=== PATIENT | female | born 1945 | race Caucasian/White ===

== ENCOUNTER 2016-10-26 14:57 | Emergency (ER) | payer OTHER ==
[2016-10-26 15:41] VITALS: BMI 31.2
--- NOTE | 2016-10-26 16:04 | PDOC ---
History of Present Illness - General Chief Complaint: Shortness of Breath Stated Complaint: SOB Time Seen by Provider: 10/26/16 15:31 History Source: Patient Exam Limitations: No Limitations - History of Present Illness Initial Comments: 71 y/o F w/PMH of COPD (oxygen dependent), emphysema presents to the ER from [facility] via EMS for shortness of breath. Pt states she went to bathroom this morning without using oxygen and when she was walking out of bathroom she began having shortness of breath not alleviated with albuterol inhaler. She also states she has had some cough with some green sputum. She also states she has not had her daily prednisone since Tuesday. She denies CP, light-headedness, dizziness, MASSEY out of the ordinary, abd pain, fevers , chills, nausea, vomiting. She states she had pneumonia 6-8 weeks ago and was treated with oral antibiotics. She states this SOB this morning feels similar to the SOB she gets with COPD exacerbation. She is a former smoker, quit 3 years ago. She denies recent travel history. Past History - Past Medical History Allergies/Adverse Reactions: Allergies Allergy/AdvReac Type Severity Reaction Status Date / Time codeine Allergy Verified 10/26/16 15:29 latex Allergy Verified 10/26/16 15:29 Sulfa (Sulfonamide Allergy Verified 10/26/16 15:29 Antibiotics) Home Medications: Ambulatory Orders Acetaminophen [Mapap] 650 mg PO PRN 10/26/16 Albuterol 0.083% Nebulizer Opal [Ventolin 0.083% Nebulizer Soln -] 1 neb NEB Q6H PRN 10/26/16 Albuterol Sulfate Inhaler - [Ventolin Hfa Inhaler -] 1 puff IH TID 10/26/16 Aspirin [ASA -] 81 mg PO DAILY 10/26/16 Citalopram Hydrobromide [Citalopram HBr] 20 mg PO DAILY 10/26/16 Clonazepam [Klonopin -] 0.5 mg PO AM 10/26/16 Clonazepam [Klonopin] 1 mg PO HS 10/26/16 Denosumab [Prolia] 60 mg SQ ASDIR 10/26/16 Docusate Sodium [Colace -] 300 mg PO HS 10/26/16 Metoprolol Tartrate [Lopressor] 100 mg PO BID 10/26/16 Omeprazole 40 mg PO DAILY 10/26/16 Prednisone 10 mg PO DAILY #10 tablet 10/26/16 Prednisone [Deltasone -] 5 mg PO DAILY 10/26/16 Umeclidinium Brm/Vilanterol Tr [Anoro Ellipta 62.5-25 Mcg INH] 1 each IH DAILY 10/26/16 Verapamil HCl 120 mg PO DAILY 10/26/16 Anemia: Yes Cancer: Yes (uterine) COPD: Yes GI Disorders: Yes (gerd) HTN: Yes Psychiatric Problems: Yes (anxiety) Other medical history: osteoarthritis, osteoperosis,sleep disorders,facial nerve disorder, - Psycho/Social/Smoking Cessation Hx Suicidal Ideation: No Smoking History: Former smoker Have you smoked in the past 12 months: No Information on smoking cessation initiated: No Hx Alcohol Use: Yes (occasionally) Drug/Substance Use Hx: No Substance Use Type: Alcohol Review of Systems - Review of Systems Able to Perform ROS?: Yes Comments:: CONSTITUTIONAL: No fever, no chills, no fatigue EYES: No visual changes ENT: No ear pain, no sore throat CARDIOVASCULAR: No chest pain, no palpitations RESPIRATORY: +cough, SOB GI: No abdominal pain, no nausea, no vomiting GENITOURINARY: No dysuria MUSKULOSKELETAL: No backpain, no joint pain, no myalgias SKIN: No rash NEURO: No new headache *Physical Exam - Vital Signs Last Vital Signs Temp Pulse Resp BP Pulse Ox 97.5 F L 103 H 18 105/84 98 10/26/16 15:00 10/26/16 15:00 10/26/16 15:00 10/26/16 15:00 10/26/16 15:00 - Physical Exam Comments: CONSTITUTIONAL: Well-appearing; well-nourished; in no apparent distress HEAD: Normocephalic; atraumatic EYES: EOM intact ENMT: External appears normal NECK: Supple; nontender CARD: Tachycardic, Normal S1, S2; no rubs, or gallops RESP: Diminished breath sounds; no wheezes, rhonchi, or rales ABD: Soft, non-distended; non-tender; no palpable organomegaly, no palpable hernias EXT: Normal ROM in all four extremities; non-tender to palpation; distal pulses intact SKIN: Warm, dry, no rash NEURO: No focal neurological deficiencies. Heart Score/ECG Review - ECG Intrepretation Comment:: EKG: NSR 95bpm T wave abnormality, consider anterior ischemia QTc 449 ms ED Treatment Course - LABORATORY CBC & Chemistry Diagram: 10/26/16 16:09 10/26/16 16:09 Medical Decision Making - Medical Decision Making 10/26/16 16:00 COPD exacerbation likely at this time. Ordered CBCD, CMP, cardiac profile, EKG, CXR Pt states she already feels better currently despite no treatments yet. 10/26/16 16:44 Will give patient 40 mg prednisone. [facility] one dose ordered. Will monitor patient for now. Will also watch her trops at this time. If trops negative and pt remains stable will discharge with prednisone taper (40-30-20- 10 qd taper) 10/26/16 16:57 CXR: COPD, possible mild congestion. 10/26/16 17:36 Trop <0.02, no white count, electrolytes wnl Will get second set of trops. If negative will d/c to home. 10/26/16 17:42 Pt takes clonazepam 0.5 mg qd and 1mg qhs as indicated by medlist sent in by facility. Pt has not taken any of her medications this morning because she was unable to reach the med room at living facility due to SOB. 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 Will give clonazepam 0.5 mg once at this time. Will hold verapamil as her BP is normotensive. If Hypertensive can give metoprolol tartrate 100 mg (scheduled to be taken bid) as her HR is elevated. *DC/Admit/Observation/Transfer Diagnosis at time of Disposition: COPD exacerbation - Discharge Dispostion Disposition: [facility] - Referrals Referrals: Mely Moore MD [Primary Care Provider] - Spike Cummings MD [Staff Physician] - - Patient Instructions Printed Discharge Instructions: DI for Chronic Obstructive Pulmonary Disease, DI for Oxygen Therapy -- Adult Additional Instructions: You must follow up with your primary care doctor after this emergency room visit. You are to take prednisone on a taper for the next 4 days (do not take your daily 10 mg at this time) You are to take 40 mg prednisone tomorrow; 30 mg the day after, 20 mg the following day, and 10 mg on the 4th day. After which you may resume your regular prednisone dosing. You may also see a business development for your COPD and emphysema. You may see Dr. Cummings if you do not already have a business development. If your symptoms worsen, come back to the emergency room.
--- NOTE | 2016-10-26 16:51 | PDOC ---
Attending Attestation - Resident Resident Name: Rex Cuevas - ED Attending Attestation I have performed the following: I have examined & evaluated the patient, The case was reviewed & discussed with the resident, I agree w/resident's findings & plan, Exceptions are as noted - HPI HPI: 10/26/16 16:47 Patient 71-year-old female with history of COPD, O2 dependent, brought in by EMS for a period of shortness of breath that occurred when the patient was exerting herself and had to take off the supplemental O2 we'll go to the bathroom. Patient also reports that over a period of several days, she has developed worsening dyspnea on exertion which is often treated by additional doses of prednisone. Patient denies chest pain at rest, complains of mild discomfort which is exacerbated post tussively. - Physicial Exam PE: 10/26/16 16:49 Patient is awake and alert, speaking full sentences, with oxygen saturation of 97% on 3 L via nasal cannula. Breath sounds are distant bilaterally without audible wheezing or accessory muscle use. Serial abdominal exams reveal no tenderness; there is no lower extremity edema. - Medical Decision Making 10/26/16 16:50 Patient 71-year-old female with history of COPD, O2 dependent who presents with an episode of dyspnea that occurred while she took off her supplemental O2. On initial evaluation, patient is awake and alert, speaking full sentences, in no respiratory distress. We will administer additional dose of prednisone by mouth for suspected mild acute COPD exacerbation. EKG shows inverted T waves in V2 and V3 without a previous one for comparison. Will obtain serial cardiac enzymes to rule out DE. If negative, will discharge with a prednisone taper with pulmonology follow-up as needed.
[2016-10-26 16:57] LABS: BASOPHIL 0.6 % (0-2.0); EOSINOPHIL 0.4 % (0-4.5); MCH 27.1 pg (25.7-33.7); MCHC 32.3 g/dl (32.0-36.0); MEAN CELL VOLUME 83.7 fl (80-96); MEAN PLT VOLUME 7.4 fl (7.5-11.1); NEUTROPHILS 87.1 % (42.8-82.8); PLATELET COUNT 219 K/MM3 (134-434); RDW 14.3 % (11.6-15.6)
[2016-10-26 17:20] LABS: ALBUMIN 3.4 g/dl (3.4-5.0); ANION GAP 9 (8-16); BILIRUBIN,TOTAL 0.2 mg/dL (0.2-1.0); CALCIUM 8.6 mg/dL (8.5-10.1); CO2 34 mmol/L (21-32); CREATININE 0.8 mg/dL (0.55-1.02); GLUCOSE,RANDOM 135 mg/dL (74-106); SGOT/AST 14 U/L (15-37); SGPT/ALT 11 U/L (12-78); TOT PROT 6.1 g/dl (6.4-8.2)
[2016-10-26 17:22] LABS: ALK PHOS 130 U/L (45-117); TROPONIN I < 0.02 ng/ml (0.00-0.05)
[2016-10-26] MEDS ORDERED: predniSONE 20 MG TABLET (UD) PO ONE (17:25)
[2016-10-26] MEDS ORDERED: predniSONE 20 MG TABLET (UD) ONE (17:35)
[2016-10-26] MEDS ORDERED: ALBUTEROL SO4 2.5/IPRATROPIUM 0.5 INH SOL 3 ML VIAL.NEB. NEB ONE ×2 (17:41→18:18)
[2016-10-26] MEDS ORDERED: clonazePAM 0.5 MG TABLET PO ONE (17:48)
[2016-10-26] MEDS ORDERED: clonazePAM 0.5 MG TABLET ONE (18:18)
[2016-10-26 22:47] VITALS: BP 119/83; PULSE 105; TEMP 97.9
[2016-10-26 23:04] LABS: TROPONIN I < 0.02 ng/ml (0.00-0.05)
--- NOTE | 2016-10-26 23:40 | PDOC ---
*Physical Exam - Vital Signs Last Vital Signs Temp Pulse Resp BP Pulse Ox 97.9 F 105 H 19 119/83 96 10/26/16 22:46 10/26/16 22:46 10/26/16 22:46 10/26/16 22:46 10/26/16 22:46 ED Treatment Course - LABORATORY CBC & Chemistry Diagram: 10/26/16 16:09 10/26/16 16:09 - ADDITIONAL ORDERS Additional order review: Laboratory Results 10/26/16 10/26/16 22:02 16:09 Sodium 141 Potassium 4.8 Chloride 98 Carbon Dioxide 34 H Anion Gap 9 BUN 21 H Creatinine 0.8 Creat Clearance w eGFR > 60 Random Glucose 135 H Calcium 8.6 Total Bilirubin 0.2 AST 14 L ALT 11 L Alkaline Phosphatase 130 H Creatine Kinase 42 45 Troponin I < 0.02 < 0.02 Total Protein 6.1 L Albumin 3.4 10/26/16 16:09 RBC 3.95 MCV 83.7 MCHC 32.3 RDW 14.3 MPV 7.4 L Neutrophils % 87.1 H Lymphocytes % 9.1 Monocytes % 2.8 L Eosinophils % 0.4 Basophils % 0.6 - Medications Given in the ED: ED Medications Discontinued Medications Generic Name Dose Route Start Last Admin Trade Name Freq PRN Reason Stop Dose Admin Albuterol/Ipratropium 1 amp 10/26/16 17:41 10/26/16 18:21 Duoneb - NEB 10/26/16 17:42 1 amp ONCE ONE Administration Clonazepam 0.5 mg 10/26/16 17:48 10/26/16 18:21 Klonopin - PO 10/26/16 17:49 0.5 mg ONCE ONE Administration Prednisone 40 mg 10/26/16 17:25 10/26/16 17:27 Deltasone - PO 10/26/16 17:26 40 mg ONCE ONE Administration *DC/Admit/Observation/Transfer Diagnosis at time of Disposition: COPD exacerbation - Discharge Dispostion Disposition: [facility] Condition at time of disposition: Stable - Prescriptions Prescriptions: Prednisone 10 mg PO DAILY #10 tablet - Referrals Referrals: Spike Cummings MD [Staff Physician] - Mely Moore MD [Primary Care Provider] - - Patient Instructions Printed Discharge Instructions: DI for Chronic Obstructive Pulmonary Disease, DI for Oxygen Therapy -- Adult Additional Instructions: You must follow up with your primary care doctor after this emergency room visit. You are to take prednisone on a taper for the next 4 days (do not take your daily 10 mg at this time) You are to take 40 mg prednisone tomorrow; 30 mg the day after, 20 mg the following day, and 10 mg on the 4th day. After which you may resume your regular prednisone dosing. You may also see a log driver for your COPD and emphysema. You may see Dr. Cummings if you do not already have a log driver. If your symptoms worsen, come back to the emergency room. - Post Discharge Activity
--- NOTE | 2016-10-27 12:45 | EKG ---
Test Reason : Blood Pressure : / mmHG Vent. Rate : 095 BPM Atrial Rate : 095 BPM P-R Int : 132 ms QRS Dur : 084 ms QT Int : 358 ms P-R-T Axes : 066 036 065 degrees QTc Int : 449 ms NORMAL SINUS RHYTHM T WAVE ABNORMALITY, CONSIDER ANTERIOR ISCHEMIA ABNORMAL ECG NO PREVIOUS ECGS AVAILABLE Confirmed by MARIA ELENA THOMAS MD ([id number]) on 10/27/2016 12:45:13 PM Referred By: Confirmed By:MARIA ELENA THOMAS MD
== END 2016-10-27 00:55 ==
LOC: JER 14:57
PROC: 3E0F7GC Introduction of Other Therapeutic Substance into Respiratory Tract, Via Natural or Artificial Opening (ICD-10-PCS; principal; 2016-10-26)
DX: J44.1 Chronic obstructive pulmonary disease with (acute) exacerbation (principal); Z99.81 Dependence on supplemental oxygen; I10 Essential (primary) hypertension; D64.9 Anemia, unspecified; F41.9 Anxiety disorder, unspecified; M19.90 Unspecified osteoarthritis, unspecified site; G47.8 Other sleep disorders; G51.8 Other disorders of facial nerve
CPT/HCPCS: 36415; 71010-TC; 80053; 82550; 84484; 85025; 93005; 93010; 99283-25

== ENCOUNTER 2017-10-18 14:13 | Emergency (ER) | payer OTHER ==
[2017-10-18 14:40] VITALS: BP 89/50; PULSE 65; TEMP 98.8; BMI 33.1
--- NOTE | 2017-10-18 15:04 | PDOC ---
History of Present Illness - General Chief Complaint: Injury Stated Complaint: LACERATION Time Seen by Provider: 10/18/17 14:33 History Source: Patient Exam Limitations: No Limitations - History of Present Illness Initial Comments: 10/18/17 15:03 The patient is a 72F with a PMH of who presents to the ER with complaints of a laceration on her L elbow. The patient states that yesterday morning at 0300 she got up to go to the bathroom, rolled on her ankle, and hit her elbow on a bookshelf. She denies any CP, SOB, numbness, tingling, or weakness before, during, or after this event. She denies LOC and any head trauma. Her only complaint is the laceration on her L elbow. Past History - Past Medical History Allergies/Adverse Reactions: Allergies Allergy/AdvReac Type Severity Reaction Status Date / Time codeine Allergy Verified 10/18/17 14:56 latex Allergy Verified 10/18/17 14:56 Sulfa (Sulfonamide Allergy Verified 10/18/17 14:56 Antibiotics) Home Medications: Ambulatory Orders Acetaminophen [Mapap] 650 mg PO PRN 10/26/16 Albuterol 0.083% Nebulizer Opal [Ventolin 0.083% Nebulizer Soln -] 1 neb NEB Q6H PRN 10/26/16 Aspirin [ASA -] 81 mg PO DAILY 10/26/16 Citalopram Hydrobromide [Citalopram HBr] 20 mg PO DAILY 10/26/16 Clonazepam [Klonopin] 1 mg PO HS 10/26/16 Denosumab [Prolia] 60 mg SQ ASDIR 10/26/16 Docusate Sodium [Colace -] 300 mg PO HS 10/26/16 Metoprolol Tartrate [Lopressor] 100 mg PO BID 10/26/16 Omeprazole 40 mg PO DAILY 10/26/16 Umeclidinium Brm/Vilanterol Tr [Anoro Ellipta 62.5-25 Mcg INH] 1 each IH DAILY 10/26/16 Verapamil HCl 120 mg PO DAILY 10/26/16 clonazePAM [Klonopin -] 0.5 mg PO AM 10/26/16 predniSONE [Deltasone -] 7.5 mg PO DAILY 10/26/16 Anemia: Yes Cancer: Yes (uterine) COPD: Yes GI Disorders: Yes (gerd) HTN: Yes Psychiatric Problems: Yes (anxiety) - Suicide/Smoking/Psychosocial Hx Smoking History: Former smoker Have you smoked in the past 12 months: No Information on smoking cessation initiated: No Hx Alcohol Use: No Drug/Substance Use Hx: No Substance Use Type: Alcohol Review of Systems - Review of Systems Able to Perform ROS?: Yes Is the patient limited Bahamian proficient: No Constitutional: No: Chills, Fever HEENTM: No: Eye Pain, Blurred Vision Respiratory: No: Shortness of Breath Cardiac (ROS): No: Chest Pain ABD/GI: No: Nausea, Vomiting Neurological: No: Headache, Numbness, Tingling, Weakness *Physical Exam - Vital Signs Last Vital Signs Temp Pulse Resp BP Pulse Ox 98.8 F 65 20 89/50 95 10/18/17 14:32 10/18/17 14:32 10/18/17 14:32 10/18/17 14:32 10/18/17 14:32 - Physical Exam General Appearance: Yes: Appropriately Dressed. No: Apparent Distress HEENT: positive: Normal Voice, Hearing Grossly Normal Integumentary: positive: Dry, Warm, Other (2 cm superficial laceration at lateral L elbow) Neurologic: positive: Other (Neurovascularly intact in L arm) Procedures - Laceration/Wound Repair Left Lateral Elbow Wound Length: to 2.5 cm Wound Explored: clean Wound's Depth, Shape: superficial Irrigated w/ Saline: Yes Betadine Prep: No Anesthesia: 1% Lidocaine Amount of Anesthetic (ccs): 1 Wound Debrided: minimal Wound Repaired With: Sutures Suture Size/Type: 4:0 Number of Sutures: 2 Layer Closure: No Sterile Dressing Applied: Yes Splint Applied: No Sling Applied: No Medical Decision Making - Medical Decision Making 10/18/17 17:02 The patient is a 72F who presented with a superficial laceration over her L elbow. It was sutured with 2 4-0 needles. Will apply clean dressing and then d/ c home. *DC/Admit/Observation/Transfer Diagnosis at time of Disposition: Laceration - Discharge Dispostion Disposition: HOME Condition at time of disposition: Stable Decision to Admit order: No - Referrals Referrals: Mely Moore MD [Primary Care Provider] - - Patient Instructions Printed Discharge Instructions: DI for Suture Removal Additional Instructions: Please follow up with your primary care physician in 2-3 days. Your doctor can take out your sutures in 10 days. Please return if you have any fever, chills, redness, or pus drainage from your laceration. Please keep the area clean and dry for 2 days then change out your dressings with triple antibiotic ointment. Please return to the ER if you have any signs or symptoms of chest pain, shortness of breath, uncontrollable fever, chills, nausea, vomiting, numbness, tingling, or weakness in any part of your body, changes in vision, or slurred speech. Please return to the ER if symptoms persist, worsen, or new symptoms arise. - Post Discharge Activity
--- NOTE | 2017-10-18 16:12 | PDOC ---
Attending Attestation - Resident Resident Name: RenettaPhil - ED Attending Attestation I have performed the following: I have examined & evaluated the patient, The case was reviewed & discussed with the resident, I agree w/resident's findings & plan - HPI HPI: 10/18/17 16:07 72-year-old female presents with left elbow injury sustained about 1.5 days ago when she slipped on her right ankle and fell, striking her left elbow on a bookcase, dresser, and floor. There was no head injury or loss of consciousness , she's been fully ambulatory since then without left ankle pain or swelling. Presents today for evaluation of L elbow swelling/bruising/discomfort and laceration. last tetanus 2y ago - Physicial Exam PE: 10/18/17 16:08 Vital signs wnl well appearing seated in wheelchair on baseline O2 atraumatic except for L elbow: subcutaneous bruising across lateral LUE around elbow, slight ttp over olecranon but FROM without joint effusion. NVI. 1.5cm skin avulsion, no active bleeding, no FB, no deep tissue injury - Medical Decision Making 10/18/17 16:10 72-year-old female with isolated left elbow injury after mechanical trip and fall 1.5 days ago. Trauma exam is unremarkable, she is well-appearing and hemodynamically stable. Left elbow superficial laceration with bruising, rule out fracture. Left elbow x-ray Tetanus already up-to-date Laceration repair Discharge accordingly 10/18/17 16:43 xray negative for fracture. lac repair per note home with wound care instructions.
== END 2017-10-18 19:59 | disposition home or self-care (01) ==
LOC: JER 14:13
PROC: 0HQEXZZ Repair Left Lower Arm Skin, External Approach (ICD-10-PCS; principal; 2017-10-18)
DX: S51.012A Laceration without foreign body of left elbow, initial encounter (principal); W01.190A Fall on same level from slipping, tripping and stumbling with subsequent striking against furniture, initial encounter; Y93.01 Activity, walking, marching and hiking; Y92.092 Bedroom in other non-institutional residence as the place of occurrence of the external cause; I10 Essential (primary) hypertension; J44.9 Chronic obstructive pulmonary disease, unspecified; K21.9 Gastro-esophageal reflux disease without esophagitis; Z85.42 Personal history of malignant neoplasm of other parts of uterus; Z87.891 Personal history of nicotine dependence
CPT/HCPCS: 12001; 73070-TC-LT-FY; 99282-25

== ENCOUNTER 2018-01-20 14:26 | Inpatient (IN) | payer OTHER ==
[2018-01-20] MEDS ORDERED: ALBUTEROL SO4 2.5/IPRATROPIUM 0.5 INH SOL 3 ML VIAL.NEB. NEB ONE ×2 (14:59→16:30)
--- NOTE | 2018-01-20 15:21 | PDOC ---
History of Present Illness <Leda Farmer - Last Filed: 01/20/18 15:21> - General History Source: Patient Exam Limitations: No Limitations - History of Present Illness Initial Comments: 01/20/18 15:43 The patient is a 72 year old female with a significant PMH of COPD O2 dependent , right sided facial spasms, and cervical cancer s/p hysterectomy presenting with shortness of breath that began yesterday. Patient states she was walking around in the heat when she suddenly began experiencing shortness of breath. Patient is speaking in 2-3 word sentences here in the ER. Patient reports coughing more than usual and that her cough is productive of a green colored sputum. Patient reports using her inhaler and 7.5 mg of prednisone with no improvement. Patient also uses 2-3L of 02 at home. Patient was unable to fall asleep last night secondary to her shortness of breath. The patient denies chest pain, headache and dizziness. Denies fever, chills, nausea, vomit, diarrhea and constipation. Denies dysuria, frequency, urgency and hematuria. Allergies: NKA Past surgical history: None reported Social history: Former smoker. No reported alcohol or drug use. <Megan Herrera - Last Filed: 01/20/18 16:55> <Norma Rosales - Last Filed: 01/20/18 20:42> - General Chief Complaint: Shortness of Breath Stated Complaint: COPD Time Seen by Provider: 01/20/18 15:21 Past History - Past Medical History Anemia: Yes Cancer: Yes (uterine) COPD: Yes GI Disorders: Yes (gerd) HTN: Yes Psychiatric Problems: Yes (anxiety) - Suicide/Smoking/Psychosocial Hx Smoking History: Former smoker Have you smoked in the past 12 months: No If you are a former smoker, when did you quit?: 4 years ago Information on smoking cessation initiated: No Hx Alcohol Use: No Drug/Substance Use Hx: No Substance Use Type: Alcohol <Leda Farmer - Last Filed: 01/20/18 15:21> <Megan Herrera - Last Filed: 01/20/18 16:55> <Norma Rosales - Last Filed: 01/20/18 20:42> - Past Medical History Allergies/Adverse Reactions: Allergies Allergy/AdvReac Type Severity Reaction Status Date / Time codeine Allergy Verified 10/18/17 14:56 latex Allergy Verified 10/18/17 14:56 Sulfa (Sulfonamide Allergy Verified 10/18/17 14:56 Antibiotics) Home Medications: Ambulatory Orders Acetaminophen [Mapap] 650 mg PO PRN 10/26/16 Albuterol 0.083% Nebulizer Opal [Ventolin 0.083% Nebulizer Soln -] 1 neb NEB Q6H PRN 10/26/16 Aspirin [ASA -] 81 mg PO DAILY 10/26/16 Citalopram Hydrobromide [Citalopram HBr] 20 mg PO DAILY 10/26/16 Clonazepam [Klonopin] 1 mg PO HS 10/26/16 Denosumab [Prolia] 60 mg SQ ASDIR 10/26/16 Docusate Sodium [Colace -] 300 mg PO HS 10/26/16 Metoprolol Tartrate [Lopressor] 100 mg PO BID 10/26/16 Omeprazole 40 mg PO DAILY 10/26/16 Umeclidinium Brm/Vilanterol Tr [Anoro Ellipta 62.5-25 Mcg INH] 1 each IH DAILY 10/26/16 Verapamil HCl 120 mg PO DAILY 10/26/16 clonazePAM [Klonopin -] 0.5 mg PO AM 10/26/16 predniSONE [Deltasone -] 7.5 mg PO DAILY 10/26/16 Albuterol 2.5/Ipratropium 0.5 [Duoneb -] 1 amp NEB Q6H 01/20/18 Albuterol Sulfate [Proair Hfa] 2 puff IH Q4H 01/20/18 Atorvastatin Ca [Lipitor] 40 mg PO HS 01/20/18 Cholecalciferol (Vitamin D3) [Vitamin D3] 1,000 unit PO DAILY 01/20/18 Review of Systems - Review of Systems Able to Perform ROS?: Yes Comments:: 01/20/18 15:47 GENERAL/CONSTITUTIONAL: No fever or chills. No weakness. HEAD, EYES, EARS, NOSE AND THROAT: (+) Right eye discharge. No change in vision. No ear pain or discharge. No sore throat. CARDIOVASCULAR: No chest pain or shortness of breath. RESPIRATORY: (+) Shortness of breath. (+) Productive cough. No hemoptysis. GASTROINTESTINAL: No nausea, vomiting, diarrhea or constipation. GENITOURINARY: No dysuria, frequency, or change in urination. MUSCULOSKELETAL: No joint or muscle swelling or pain. No neck or back pain. SKIN: No rash NEUROLOGIC: No headache, vertigo, loss of consciousness, or change in strength/ sensation. ENDOCRINE: No increased thirst. No abnormal weight change. HEMATOLOGIC/LYMPHATIC: No anemia, easy bleeding, or history of blood clots. ALLERGIC/IMMUNOLOGIC: No hives or skin allergy. <Megan Herrera - Last Filed: 01/20/18 16:55> *Physical Exam - Vital Signs Last Vital Signs Temp Pulse Resp BP Pulse Ox 98.6 F 121 H 26 H 124/90 95 01/20/18 14:30 01/20/18 14:30 01/20/18 14:30 01/20/18 14:30 01/20/18 14:30 <Leda Farmer - Last Filed: 01/20/18 15:21> - Vital Signs Last Vital Signs Temp Pulse Resp BP Pulse Ox 98.6 F 121 H 26 H 124/90 95 01/20/18 14:30 01/20/18 14:30 01/20/18 14:30 01/20/18 14:30 01/20/18 14:30 - Physical Exam Comments: 01/20/18 15:44 GENERAL: Awake, alert, and fully oriented. (+) Speaking in 2-3 word sentences. HEAD: No signs of trauma EYES: (+) Crusting, discharge, and redness to the right eye. PERRLA, EOMI, sclera anicteric. ENT: Auricles normal inspection, hearing grossly normal, nares patent, oropharynx clear without exudates. Moist mucosa NECK: Normal ROM, supple, no lymphadenopathy, JVD, or masses LUNGS: (+) Diffused wheezing and decreased air entry bilaterally. No crackles. HEART: (+) Tachycardic. Regular rhythm, normal S1 and S2, no murmurs, rubs or gallops ABDOMEN: Soft, nontender, normoactive bowel sounds. No guarding, no rebound. No masses EXTREMITIES: Normal range of motion, no edema. No clubbing or cyanosis. No cords, erythema, or tenderness NEUROLOGICAL: Cranial nerves II through XII grossly intact. Normal speech, normal gait SKIN: Warm, Dry, normal turgor, no rashes or lesions noted. <Megan Herrera - Last Filed: 01/20/18 16:55> - Vital Signs Last Vital Signs Temp Pulse Resp BP Pulse Ox 98.6 F 126 H 24 139/61 92 L 01/20/18 14:30 01/20/18 18:23 01/20/18 18:23 01/20/18 18:23 01/20/18 18:23 <Norma Rosales - Last Filed: 01/20/18 20:42> ED Treatment Course - LABORATORY CBC & Chemistry Diagram: 01/20/18 15:40 01/20/18 15:40 - Medications Given in the ED: ED Medications Discontinued Medications Generic Name Dose Route Start Last Admin Trade Name Freq PRN Reason Stop Dose Admin Methylprednisolone Sodium Succinate 125 mg 01/20/18 15:31 01/20/18 15:36 Solu-Medrol - IVPUSH 01/20/18 15:32 125 mg ONCE ONE Administration <Megan Herrera - Last Filed: 01/20/18 16:55> - LABORATORY CBC & Chemistry Diagram: 01/20/18 15:40 01/20/18 15:40 - ADDITIONAL ORDERS Additional order review: Laboratory Results 01/20/18 01/20/18 01/20/18 15:42 15:40 15:40 VBG pH 7.33 POC VBG pCO2 63.4 H* POC VBG pO2 55.5 H Mixed VBG HCO3 33.3 H Sodium 145 Potassium 4.2 Chloride 103 Carbon Dioxide 34 H Anion Gap 8 BUN 20 H Creatinine 1.0 Creat Clearance w eGFR 54.50 Random Glucose 129 H Lactic Acid 1.0 Calcium 8.5 Total Bilirubin 0.4 AST 10 L ALT 11 L Alkaline Phosphatase 115 Creatine Kinase 40 Troponin I < 0.02 Total Protein 6.1 L Albumin 3.2 L 01/20/18 15:40 RBC 4.29 MCV 79.7 L MCHC 31.7 L RDW 17.3 H MPV 7.4 L Neutrophils % 83.2 H Lymphocytes % 7.2 L D Monocytes % 9.2 D Eosinophils % 0.1 Basophils % 0.3 - Medications Given in the ED: ED Medications Discontinued Medications Generic Name Dose Route Start Last Admin Trade Name Freq PRN Reason Stop Dose Admin Albuterol/Ipratropium 1 amp 01/20/18 15:45 01/20/18 16:33 Duoneb - NEB 01/20/18 16:31 1 amp Q15M FABIOLA Administration Methylprednisolone Sodium Succinate 125 mg 01/20/18 15:31 01/20/18 15:36 Solu-Medrol - IVPUSH 01/20/18 15:32 125 mg ONCE ONE Administration <Norma Rosales - Last Filed: 01/20/18 20:42> Medical Decision Making - Medical Decision Making 01/20/18 16:53 Imaging: Portable chest XR Reported by: Dr. Arellano Impression: Since 10/26/16, again noted is the large heart with prominent right hilar markings. There may be some atelectasis at the right base. The bones and soft tissues are intact and the left lung is clear. <Megan Herrera - Last Filed: 01/20/18 16:55> *DC/Admit/Observation/Transfer <Leda Farmer - Last Filed: 01/20/18 15:21> - Attestations Scribe Attestion: 01/20/18 15:47 Documentation prepared by Megan Herrera, acting as medical charge entry specialist for Leda Farmer MD. <Megan Herrera - Last Filed: 01/20/18 16:55> - Discharge Dispostion Decision to Admit order: Yes <Norma Rosales - Last Filed: 01/20/18 20:42> Diagnosis at time of Disposition: COPD exacerbation, Emphysema of lung, Pneumonia - Discharge Dispostion Condition at time of disposition: Guarded - Referrals Referrals: Mely Moore MD [Primary Care Provider] - - Patient Instructions - Post Discharge Activity
[2018-01-20] MEDS ORDERED: methylPREDNISolone NA SUCC 125 MG/2 ML VIAL ONE (15:30)
[2018-01-20] MEDS ORDERED: methylPREDNISolone NA SUCC 125 MG/2 ML VIAL IVPUSH ONE (15:31)
[2018-01-20] MEDS: ALBUTEROL SO4 2.5/IPRATROPIUM 0.5 INH SOL 3 ML VIAL.NEB. NEB SCH ×4 (15:36→16:33)
[2018-01-20 15:52] LABS: BASO % 0.3 % (0-2.0); EOS % 0.1 % (0-4.5); HEMATOCRIT 34.2 % (32.4-45.2); HEMOGLOBIN 10.8 GM/dL (10.7-15.3); LYMPH % 7.2 % (8-40); MCH 25.3 pg (25.7-33.7); MCHC 31.7 g/dl (32.0-36.0); MEAN CELL VOLUME 79.7 fl (80-96); MEAN PLT VOLUME 7.4 fl (7.5-11.1); MONO % 9.2 % (3.8-10.2); NEUT % 83.2 % (42.8-82.8); PLATELET COUNT 260 K/MM3 (134-434); RBC 4.29 M/mm3 (3.60-5.2); RDW 17.3 % (11.6-15.6); WHITE BLOOD COUNT 11.9 K/mm3 (4.0-10.0)
[2018-01-20 16:02] LABS: VENOUS PC02 63.4 mmHg (38-52); VENOUS PH 7.33 (7.32-7.42); VENOUS PO2 55.5 mmHg (28-48)
[2018-01-20 16:16] LABS: ALBUMIN 3.2 g/dl (3.4-5.0); ANION GAP 8 (8-16); BLOOD UREA NITROGEN 20 mg/dL (7-18); CALCIUM 8.5 mg/dL (8.5-10.1); CHLORIDE 103 mmol/L (98-107); CO2 34 mmol/L (21-32); GLUCOSE,RANDOM 129 mg/dL (74-106); POTASSIUM 4.2 mmol/L (3.5-5.1); SGOT/AST 10 U/L (15-37); SGPT/ALT 11 U/L (12-78); SODIUM 145 mmol/L (136-145)
[2018-01-20 16:20] LABS: ALK PHOS 115 U/L (45-117); BILIRUBIN,TOTAL 0.4 mg/dL (0.2-1.0); TOT PROT 6.1 g/dl (6.4-8.2)
[2018-01-20] MEDS ORDERED: CEFTRIAXONE 1 GM in DEXTROSE 5%-WATER - 50 ML IVPB ONE (19:59)
[2018-01-20] MEDS ORDERED: AZITHROMYCIN IVPB 500 MG in DEXTROSE 5%-WATER - 250 ML IVPB ONE (19:59)
[2018-01-20] MEDS ORDERED: CEFTRIAXONE 1 GM/50 ML BAG ONE ×2 (20:07→23:19)
[2018-01-20] MEDS ORDERED: AZITHROMYCIN IVPB 250 ML IVPB ONE (20:07)
[2018-01-20] MEDS ORDERED: methylPREDNISolone NA SUCC 40 MG/1 ML VIAL IVPB SCH (22:15)
[2018-01-20] MEDS ORDERED: CEFTRIAXONE 1 GM in DEXTROSE 5%-WATER - 50 ML IVPB STA (22:23)
[2018-01-20] MEDS ORDERED: TIOTROPIUM BROMIDE 2.5 MCG (SPIRIVA) RESPIMAT INHALER IH SCH (22:30)
[2018-01-20] MEDS ORDERED: SODIUM CHLORIDE 0.9% 500 ML INFUS.BAG IV ONE (22:44)
--- NOTE | 2018-01-20 23:15 | HP ---
CHIEF COMPLAINT: shortness of breath PCP: Dr. Moore HISTORY OF PRESENT ILLNESS: 72F w/ pmhx COPD (O2 dependent), R facial spasms, cervical cx s/p hysterectomy, osteoporosis presented with worsening shortness of breath that started yesterday when she was getting up from her chair at home. During this episode, she reports using her inhaler with no improvement in symptoms. She currently lives in an assisted living facility. Pt has a significant hx of tobacco abuse where she started smoking cigarettes in her youth up until 4 years ago where she had stopped completely after becoming dependent on home O2. Additionally, she admits to cough with productive yellow-green sputum. She denies fever/chills , nausea/vomiting, urinary/bowel symptoms, blood in urine or stool. ER course was notable for: (1) 1 dose of Ceftriaxone/Azithromycin, Duonebs, Symbicort, (2) IVf given, O2 NC (3) EKG shows sinus tachycardia with nonspecific T wave changes Recent Travel: Denies PAST MEDICAL HISTORY: COPD (O2 dependent) R facial spasms cervical cx s/p hysterectomy osteoporosis PAST SURGICAL HISTORY: R wrist surgery [facility] L hip replacement Social History: Smoking: Started smoking during her childhood, Stopped smoking 4 years ago Alcohol: Socially Drugs: Denies Family History: Mother - DM, at age 74 Father - Cancer (unspecified), at age 59 Allergies codeine Allergy (Verified 10/18/17 14:56) latex Allergy (Verified 10/18/17 14:56) Sulfa (Sulfonamide Antibiotics) Allergy (Verified 10/18/17 14:56) HOME MEDICATIONS: Home Medications Medication Instructions Recorded Acetaminophen [Mapap] 650 mg PO PRN 10/26/16 Albuterol 0.083% Nebulizer Opal 1 neb NEB Q6H PRN 10/26/16 [Ventolin 0.083% Nebulizer Soln -] Aspirin [ASA -] 81 mg PO DAILY 10/26/16 Citalopram Hydrobromide 20 mg PO DAILY 10/26/16 [Citalopram HBr] Clonazepam [Klonopin] 1 mg PO HS 10/26/16 Denosumab [Prolia] 60 mg SQ ASDIR 10/26/16 Docusate Sodium [Colace -] 300 mg PO HS 10/26/16 Metoprolol Tartrate [Lopressor] 100 mg PO BID 10/26/16 Omeprazole 40 mg PO DAILY 10/26/16 Umeclidinium Brm/Vilanterol Tr 1 each IH DAILY 10/26/16 [Anoro Ellipta 62.5-25 Mcg INH] Verapamil HCl 120 mg PO DAILY 10/26/16 clonazePAM [Klonopin -] 0.5 mg PO AM 10/26/16 predniSONE [Deltasone -] 7.5 mg PO DAILY 10/26/16 Albuterol 2.5/Ipratropium 0.5 1 amp NEB Q6H 01/20/18 [Duoneb -] Albuterol Sulfate [Proair Hfa] 2 puff IH Q4H 01/20/18 Atorvastatin Ca [Lipitor] 40 mg PO HS 01/20/18 Cholecalciferol (Vitamin D3) 1,000 unit PO DAILY 01/20/18 [Vitamin D3] REVIEW OF SYSTEMS CONSTITUTIONAL: Absent: fever, chills, diaphoresis, generalized weakness, malaise HEENT: +R eye pain and redness and discharge Absent: rhinorrhea, nasal congestion, throat pain, throat swelling, difficulty swallowing, mouth swelling, ear pain, visual changes CARDIOVASCULAR: Absent: chest pain, syncope, palpitations, irregular heart rate, lightheadedness , peripheral edema RESPIRATORY: shortness of breath Absent: cough, , dyspnea with exertion, orthopnea, wheezing, stridor, hemoptysis GASTROINTESTINAL: Absent: abdominal pain, abdominal distension, nausea, vomiting, diarrhea, constipation, melena, hematochezia GENITOURINARY: Absent: dysuria, frequency, urgency, hesitancy, hematuria, flank pain, genital pain MUSCULOSKELETAL: +L hip pain, antalgic gait Absent: myalgia, arthralgia, joint swelling, back pain, neck pain SKIN: Absent: rash, itching, pallor NEUROLOGIC: Absent: headache, focal weakness or paresthesias, dizziness, unsteady gait, seizure, mental status changes, bladder or bowel incontinence PHYSICAL EXAMINATION Vital Signs - 24 hr 01/20/18 01/20/18 01/20/18 14:30 15:00 15:44 Temperature 98.6 F Pulse Rate 121 H Pulse Rate [ 119 H Apical] Respiratory 26 H 24 Rate Blood Pressure 124/90 Blood Pressure 129/78 [Left Arm] O2 Sat by Pulse 95 96 97 Oximetry (%) 01/20/18 01/20/18 01/20/18 18:23 20:29 22:31 Temperature 99.2 F 98.5 F Pulse Rate Pulse Rate [ 126 H 126 H 126 H Apical] Respiratory 24 33 H 22 Rate Blood Pressure Blood Pressure 139/61 128/75 114/76 [Left Arm] O2 Sat by Pulse 92 L 96 96 Oximetry (%) PHYSICAL EXAMINATION GENERAL: AAOx3. NAD. HEENT: AT/NC. EOMI. Conjunctival injection in R eye. Dry mouth. NECK: Supple, no LAD or JVD. LUNGS: CTA B/L. No wheezes, rhonchi, rales noted. No accessory muscle use. Symmetric chest rise. On 3L NC HEART: RRR. Normal S1, S2. No murmurs, rub, gallop noted. ABDOMEN: Soft, NT/ND. +BS. No masses or bruits noted. MUSCULOSKELETAL: Normal range of motion. UPPER EXTREMITIES: 2+ pulses, warm, well-perfused. No cyanosis. No clubbing. No peripheral edema. 5/5 muscle strength b/l. LOWER EXTREMITIES: 2+ pulses, warm, well-perfused. No calf tenderness. No peripheral edema. 5/5 muscle strength b/l. NEUROLOGICAL: Cranial nerves II-XII intact. Normal speech. Gait not observed. PSYCHIATRIC: Cooperative. Good eye contact. Appropriate mood and affect. SKIN: Warm, dry, normal turgor, no rashes or lesions noted, normal capillary refill. Laboratory Results - last 24 hr 01/20/18 01/20/18 01/20/18 15:40 15:40 15:40 WBC 11.9 H RBC 4.29 Hgb 10.8 Hct 34.2 MCV 79.7 L MCH 25.3 L MCHC 31.7 L RDW 17.3 H Plt Count 260 MPV 7.4 L Absolute Neuts (auto) 9.9 H Neutrophils % 83.2 H Lymphocytes % 7.2 L D Monocytes % 9.2 D Eosinophils % 0.1 Basophils % 0.3 Nucleated RBC % 0 VBG pH 7.33 POC VBG pCO2 63.4 H* POC VBG pO2 55.5 H Mixed VBG HCO3 33.3 H Sodium 145 Potassium 4.2 Chloride 103 Carbon Dioxide 34 H Anion Gap 8 BUN 20 H Creatinine 1.0 Creat Clearance w eGFR 54.50 Random Glucose 129 H Lactic Acid Calcium 8.5 Total Bilirubin 0.4 AST 10 L ALT 11 L Alkaline Phosphatase 115 Creatine Kinase 40 Troponin I < 0.02 Total Protein 6.1 L Albumin 3.2 L 01/20/18 15:42 WBC RBC Hgb Hct MCV MCH MCHC RDW Plt Count MPV Absolute Neuts (auto) Neutrophils % Lymphocytes % Monocytes % Eosinophils % Basophils % Nucleated RBC % VBG pH POC VBG pCO2 POC VBG pO2 Mixed VBG HCO3 Sodium Potassium Chloride Carbon Dioxide Anion Gap BUN Creatinine Creat Clearance w eGFR Random Glucose Lactic Acid 1.0 Calcium Total Bilirubin AST ALT Alkaline Phosphatase Creatine Kinase Troponin I Total Protein Albumin ABG Results ABG pH 7.25 (7.35-7.45) L 01/21/18 06:00 ABG pCO2 at Pt Temp 78.1 mmHg (35-45) H* 01/21/18 06:00 ABG pO2 at Pt Temp 73.1 mmHg (70-100) 01/21/18 06:00 ABG HCO3 32.9 meq/L (22-26) H 01/21/18 06:00 ABG O2 Sat (Measured) 92.1 % (90-98.9) 01/21/18 06:00 ABG O2 Content 13.3 % vol (15-22) L 01/21/18 06:00 ABG Base Excess 4.3 meq/l (-2-2) H 01/21/18 06:00 ASSESSMENT/PLAN: 72F w/ pmhx of COPD (O2 dependent), R facial spasms, cervical cx s/p hysterectomy, osteoporosis presented with worsening shortness of breath. #acute COPD exacerbation w/ R middle lobe infiltrate; likely pneumonia, elevated WBC -1 dose of Ceftriaxone/Azithro given in ED -cont Ceftriaxone 1gm -cont Azithromycin 500 mg -2L O2 NC -Duonebs QID -Solumedrol 40 mg IV Q8H -Symbicort 2 puffs Q12H -Spiriva 2 puffs Q12H -ABG obtained; Shows pH 7.25, however, pt sats well at 96% when awake and desats to 88% while asleep; likely 2/2 to JANETTE. Pt is AAOx3 and mentating well. Pulm eval might be needed to assess pt's JANETTE #Conjunctivitis, R eye -topical erythromycin #Morbid obesity; BMI 32 -certified personal finance counselor pt on eating habits -crew attendant consult #R facial spasms -hold Klonopin 1 mg PO HS as benzos can cause respiratory depression #HTN -hold BP meds until meds reconciled #DVT Ppx -Heparin 5000U SQ TID #FEN -no IVf -lytes wnl, recheck lytes in AM -Regular diet dispo -admit to med-surg -needs med rec Visit type - Emergency Visit Emergency Visit: Yes ED Registration Date: 01/20/18 Care time: The patient presented to the Emergency Department on the above date and was hospitalized for further evaluation of their emergent condition. - New Patient This patient is new to me today: Yes Date on this admission: 01/21/18 - Critical Care Critical Care patient: No Hospitalist Screening - Colonoscopy Questionnaire Colonoscopy Questionnaire: Colonoscopy Questionnaire - Patient: 50 - 75 years old and never had a screening colonoscopy: Unknown History of colon or rectal polyps, or CA: Unknown History of IBD, Crohn's disease or UC: Unknown History of abdominal radiation therapy as a child: Unknown - Relative: 1 with colon or rectal CA, or polyps at age 60 or younger: Unknown Colon or rectal CA diagnosed at age 45 or younger: Unknown Multiple relatives with colon or rectal CA: Unknown - Outcome: Screening Result: Negative Screen
[2018-01-20] MEDS ORDERED: methylPREDNISolone NA SUCC 40 MG/1 ML VIAL ONE (23:19)
[2018-01-20] MEDS: methylPREDNISolone NA SUCC 40 MG/1 ML VIAL IVPB SCH (23:44)
--- NOTE | 2018-01-21 00:16 | PN ---
Teaching Attending Note Name of Resident: Farida Garcia ATTENDING PHYSICIAN STATEMENT I saw and evaluated the patient. I reviewed the resident's note and discussed the case with the resident. I agree with the resident's findings and plan as documented. SUBJECTIVE: Patient is a 72 year old woman with a PMH of COPD on home O2, right sided facial spasms, and cervical cancer s/p hysterectomy presenting with shortness of breath that began yesterday. Patient states she was walking around in the heat when she suddenly began experiencing shortness of breath. Patient is speaking in 2-3 word sentences here in the ER. Patient reports coughing more than usual and that her cough is productive of a green colored sputum. Patient reports using her inhaler and 7.5 mg of prednisone with no improvement. Patient also uses 2-3L of 02 at home. Patient was unable to fall asleep last night secondary to her shortness of breath. Has redness of the right eye with discharge and pain. OBJECTIVE: Alert, obese with PADILLA Vital Signs Period Temp Pulse Resp BP Sys/Cárdenas Pulse Ox Last 24 Hr 98.5 F-99.2 F 119-126 22-33 114-139/61-90 92-97 HEENT: No Jaundice, right eye redness with discharge, PERRLA, EOMI. Normocephalic, atraumatic. External ears are normal and hearing is grossly intact. No nasal discharge. Neck: Supple, nontender. No palpable adenopathy or thyromegaly. No JVD Chest: Good effort. Diminished breath sounds, prolonged expiration and wheezing. Heart: Regular. No S3, rub or murmur Abdomen: Not distended, soft, nontender and no HSM. No rebound or guarding. Normoactive bowel sounds. Ext: Peripheral pulses intact. No leg edema. Skin: Warm and dry. No petechiae, rash or ecchymosis. Neuro: Alert. Oriented x3. CN 2-12 grossly intact. Sensation grossly intact in all four extremities and DTR are symmetric. Current Medications Generic Name Dose Route Start Last Admin Trade Name Freq PRN Reason Stop Dose Admin Albuterol/Ipratropium 1 amp 01/21/18 08:00 Duoneb - NEB RQID FABIOLA Budesonide/Formoterol Fumarate 2 puff 01/21/18 10:00 Symbicort 80/4.5mcg - IH BID [facility] Erythromycin 1 applic 01/20/18 23:15 Erythromycin 0.5% Eye Ointment OD QID [facility] Azithromycin 500 mg/ Dextrose 250 mls @ 250 mls/hr 01/21/18 10:00 IVPB DAILY [facility] Ceftriaxone Sodium 1 gm/ 50 mls @ 100 mls/hr 01/21/18 10:00 Dextrose IVPB DAILY [facility] Methylprednisolone Sodium Succinate 40 mg 01/20/18 22:45 01/20/18 23:44 Solu-Medrol - IVPB 40 mg TID [facility] Administration Tiotropium Sharps 2 puff 01/21/18 10:00 Spiriva Respimat IH DAILY [facility] Home Medications Medication Instructions Recorded Acetaminophen [Mapap] 650 mg PO PRN 10/26/16 Albuterol 0.083% Nebulizer Opal 1 neb NEB Q6H PRN 10/26/16 [Ventolin 0.083% Nebulizer Soln -] Aspirin [ASA -] 81 mg PO DAILY 10/26/16 Citalopram Hydrobromide 20 mg PO DAILY 10/26/16 [Citalopram HBr] Clonazepam [Klonopin] 1 mg PO HS 10/26/16 Denosumab [Prolia] 60 mg SQ ASDIR 10/26/16 Docusate Sodium [Colace -] 300 mg PO HS 10/26/16 Metoprolol Tartrate [Lopressor] 100 mg PO BID 10/26/16 Omeprazole 40 mg PO DAILY 10/26/16 Umeclidinium Brm/Vilanterol Tr 1 each IH DAILY 10/26/16 [Anoro Ellipta 62.5-25 Mcg INH] Verapamil HCl 120 mg PO DAILY 10/26/16 clonazePAM [Klonopin -] 0.5 mg PO AM 10/26/16 predniSONE [Deltasone -] 7.5 mg PO DAILY 10/26/16 Albuterol 2.5/Ipratropium 0.5 1 amp NEB Q6H 01/20/18 [Duoneb -] Albuterol Sulfate [Proair Hfa] 2 puff IH Q4H 01/20/18 Atorvastatin Ca [Lipitor] 40 mg PO HS 01/20/18 Cholecalciferol (Vitamin D3) 1,000 unit PO DAILY 01/20/18 [Vitamin D3] Abnormal Lab Results 0801/20/18 01/20/18 15:40 15:40 15:40 WBC 11.9 H MCV 79.7 L MCH 25.3 L MCHC 31.7 L RDW 17.3 H MPV 7.4 L Absolute Neuts (auto) 9.9 H Neutrophils % 83.2 H Lymphocytes % 7.2 L D POC VBG pCO2 63.4 H* POC VBG pO2 55.5 H Mixed VBG HCO3 33.3 H Carbon Dioxide 34 H BUN 20 H Random Glucose 129 H AST 10 L ALT 11 L Total Protein 6.1 L Albumin 3.2 L ASSESSMENT AND PLAN: 1. COPD exacerbation with RML infiltrate - No PE on CTPA. Will treat with IV rocephin, zithromycin, duoneb, spiriva, symbicort and O2 nasal cannula 2/min. Awaiting UA. Use erythromycin eye drops for right eye conjunctivitis. EKG shows sinus tachycardia with nonspecific T wave changes. Troponin is negative - will repeat EKG. 2. Morbid Obesity - Will provide patient all the necessary assistance, counseling and positive reinforcement to facilitate weight loss. Consult yarn sizer. 3. DVT prophylaxis - Heparin 5000u sq tid. 4. Advance directives - Full code
[2018-01-21] MEDS: ERYTHROMYCIN 0.5% OPHTHALMIC OINTMENT 3.5 GM TUBE OD SCH ×5 (00:19→22:54)
[2018-01-21] MEDS: methylPREDNISolone NA SUCC 40 MG/1 ML VIAL IVPB SCH ×3 (05:37→22:53)
[2018-01-21 06:08] LABS: ALLENS TEST POSITIVE; ARTERIAL BLD GAS O2 SATURATION 92.1 % (90-98.9); ARTERIAL BLOOD GAS BASE EXCESS 4.3 meq/l (-2-2); ARTERIAL BLOOD GAS PO2 73.1 mmHg (70-100)
[2018-01-21 06:09] LABS: ARTERIAL BLOOD GAS PCO2 78.1 mmHg (35-45); ARTERIAL BLOOD GAS pH 7.25 (7.35-7.45)
[2018-01-21 07:03] LABS: HEMATOCRIT 33.3 % (32.4-45.2); HEMOGLOBIN 10.6 GM/dL (10.7-15.3); LYMPH % 4.3 % (8-40); MCH 25.4 pg (25.7-33.7); MCHC 31.8 g/dl (32.0-36.0); MEAN CELL VOLUME 79.8 fl (80-96); MEAN PLT VOLUME 7.2 fl (7.5-11.1); MONO % 3.3 % (3.8-10.2); NEUT % 92.4 % (42.8-82.8); PLATELET COUNT 244 K/MM3 (134-434); RBC 4.17 M/mm3 (3.60-5.2); RDW 17.1 % (11.6-15.6); WHITE BLOOD COUNT 11.4 K/mm3 (4.0-10.0)
[2018-01-21 07:27] LABS: ALBUMIN 3.1 g/dl (3.4-5.0); ANION GAP 4 (8-16); BLOOD UREA NITROGEN 16 mg/dL (7-18); CALCIUM 7.9 mg/dL (8.5-10.1); CHLORIDE 103 mmol/L (98-107); CO2 36 mmol/L (21-32); CREATININE 0.9 mg/dL (0.55-1.02); GLUCOSE,RANDOM 175 mg/dL (74-106); POTASSIUM 4.8 mmol/L (3.5-5.1); SGOT/AST 9 U/L (15-37); SGPT/ALT 10 U/L (12-78); SODIUM 143 mmol/L (136-145)
[2018-01-21 07:29] LABS: TOT PROT 6.2 g/dl (6.4-8.2)
[2018-01-21 07:30] LABS: ALK PHOS 110 U/L (45-117); BILIRUBIN,TOTAL 0.2 mg/dL (0.2-1.0)
[2018-01-21] MEDS ORDERED: DEXTROSE 5%-WATER - 50 ML IVPB ONE (08:17)
[2018-01-21] MEDS ORDERED: cefTRIAXone SODIUM 1 GM VIAL ONE (08:17)
[2018-01-21] MEDS: ALBUTEROL SO4 2.5/IPRATROPIUM 0.5 INH SOL 3 ML VIAL.NEB. NEB SCH ×3 (08:25→15:45)
[2018-01-21 08:49] LABS: PLATELET ESTIMATE ADEQUATE
[2018-01-21] MEDS ORDERED: PT OWN MED DRAWER 7, Y5N ONE ×4 (09:27→20:30)
[2018-01-21] MEDS: TIOTROPIUM BROMIDE 2.5 MCG (SPIRIVA) RESPIMAT INHALER IH SCH (09:31)
[2018-01-21] MEDS: BUDESONIDE/FORMETEROL FUMARATE 80/4.5 mcg INHALER IH SCH ×2 (09:32→22:51)
[2018-01-21] MEDS: CEFTRIAXONE 1 GM in DEXTROSE 5%-WATER - 50 ML IVPB SCH (09:33)
[2018-01-21] MEDS: AZITHROMYCIN IVPB 500 MG in DEXTROSE 5%-WATER - 250 ML IVPB SCH (10:54)
[2018-01-21] MEDS: HEPARIN NA (PORCINE) 5,000 UNITS/ML 1ML VIAL SQ SCH ×2 (13:56→22:53)
--- NOTE | 2018-01-21 17:54 | PN ---
Physical Exam: SUBJECTIVE: Patient seen and examined Patient is c/o having cough with no acute distress, No shortness of breath. on 2l oxygen at home OBJECTIVE: Vital Signs Temperature 98.4 F 01/21/18 13:05 Pulse Rate 120 H 01/21/18 13:05 Respiratory Rate 20 01/21/18 13:05 Blood Pressure 105/59 01/21/18 13:05 O2 Sat by Pulse Oximetry (%) 92 L 01/21/18 09:00 GENERAL: The patient is awake, alert, and fully oriented, in no acute distress. HEAD: Normal with no signs of trauma. EYES: PERRL, extraocular movements intact, sclera anicteric, conjunctiva clear. ENT: Ears normal, oropharynx clear without exudates, moist mucous membranes.on 2l O2 NECK: Trachea midline, full range of motion, supple. LUNGS: decreased Breath sounds at the bases , clear to auscultation bilaterally , no wheezes, no crackles, no accessory muscle use. HEART: tachycardic due to treatment , S1, S2 without murmur, rub or gallop. ABDOMEN: Soft, nontender, nondistended, normoactive bowel sounds, no guarding, no rebound, no hepatosplenomegaly, no masses. EXTREMITIES: 2+ pulses, warm, well-perfused, no edema. NEUROLOGICAL: Cranial nerves II through XII grossly intact. Normal speech, gait is stable . PSYCH: Normal mood, normal affect. SKIN: Warm, dry, normal turgor, no rashes or lesions noted CBCD WBC 11.4 K/mm3 (4.0-10.0) H 01/21/18 06:39 RBC 4.17 M/mm3 (3.60-5.2) 01/21/18 06:39 Hgb 10.6 GM/dL (10.7-15.3) L 01/21/18 06:39 Hct 33.3 % (32.4-45.2) 01/21/18 06:39 MCV 79.8 fl (80-96) L 01/21/18 06:39 MCHC 31.8 g/dl (32.0-36.0) L 01/21/18 06:39 RDW 17.1 % (11.6-15.6) H 01/21/18 06:39 Plt Count 244 K/MM3 (134-434) 01/21/18 06:39 MPV 7.2 fl (7.5-11.1) L 01/21/18 06:39 CMP Sodium 143 mmol/L (136-145) 01/21/18 06:39 Potassium 4.8 mmol/L (3.5-5.1) 01/21/18 06:39 Chloride 103 mmol/L (98-107) 01/21/18 06:39 Carbon Dioxide 36 mmol/L (21-32) H 01/21/18 06:39 Anion Gap 4 (8-16) L 01/21/18 06:39 BUN 16 mg/dL (7-18) 01/21/18 06:39 Creatinine 0.9 mg/dL (0.55-1.02) 01/21/18 06:39 Creat Clearance w eGFR > 60 (>60) 01/21/18 06:39 Random Glucose 175 mg/dL (74-106) H 01/21/18 06:39 Calcium 7.9 mg/dL (8.5-10.1) L 01/21/18 06:39 Total Bilirubin 0.2 mg/dL (0.2-1.0) 01/21/18 06:39 AST 9 U/L (15-37) L 01/21/18 06:39 ALT 10 U/L (12-78) L 01/21/18 06:39 Alkaline Phosphatase 110 U/L (45-117) 01/21/18 06:39 Total Protein 6.2 g/dl (6.4-8.2) L 01/21/18 06:39 Albumin 3.1 g/dl (3.4-5.0) L 01/21/18 06:39 CARDIAC ENZYMES Creatine Kinase 40 IU/L (26-192) 01/20/18 15:40 Troponin I < 0.02 ng/ml (0.00-0.05) 01/20/18 15:40 Current Medications Generic Name Dose Route Start Last Admin Trade Name Freq PRN Reason Stop Dose Admin Albuterol/Ipratropium 1 amp 01/21/18 08:00 01/21/18 15:45 Duoneb - NEB 1 amp RQID FABIOLA Administration Budesonide/Formoterol Fumarate 2 puff 01/21/18 10:00 01/21/18 09:32 Symbicort 80/4.5mcg - IH 2 puff BID FABIOLA Administration Erythromycin 1 applic 01/20/18 23:15 01/21/18 17:39 Erythromycin 0.5% Eye Ointment OD 1 dose QID FABIOLA Administration Heparin Sodium (Porcine) 5,000 unit 01/21/18 14:00 01/21/18 13:56 Heparin - SQ 5,000 unit TID FABIOLA Administration Azithromycin 500 mg/ Dextrose 250 mls @ 250 mls/hr 01/21/18 10:00 01/21/18 10 :54 IVPB 250 mls/hr DAILY FABIOLA Administration Ceftriaxone Sodium 1 gm/ 50 mls @ 100 mls/hr 01/21/18 10:00 01/21/18 09:33 Dextrose IVPB 100 mls/hr DAILY FABIOLA Administration Methylprednisolone Sodium Succinate 40 mg 01/20/18 22:45 01/21/18 13:56 Solu-Medrol - IVPB 40 mg TID FABIOLA Administration Tiotropium [place] 2 puff 01/21/18 10:00 01/21/18 09:31 Spiriva Respimat IH 2 puff DAILY FABIOLA Administration Home Medications Medication Instructions Recorded Acetaminophen [Mapap] 650 mg PO PRN 10/26/16 Albuterol 0.083% Nebulizer Opal 1 neb NEB Q6H PRN 10/26/16 [Ventolin 0.083% Nebulizer Soln -] Aspirin [ASA -] 81 mg PO DAILY 10/26/16 Citalopram Hydrobromide 20 mg PO DAILY 10/26/16 [Citalopram HBr] Clonazepam [Klonopin] 1 mg PO HS 10/26/16 Denosumab [Prolia] 60 mg SQ ASDIR 10/26/16 Docusate Sodium [Colace -] 300 mg PO HS 10/26/16 Metoprolol Tartrate [Lopressor] 100 mg PO BID 10/26/16 Omeprazole 40 mg PO DAILY 10/26/16 Umeclidinium Brm/Vilanterol Tr 1 each IH DAILY 10/26/16 [Anoro Ellipta 62.5-25 Mcg INH] Verapamil HCl 120 mg PO DAILY 10/26/16 clonazePAM [Klonopin -] 0.5 mg PO AM 10/26/16 predniSONE [Deltasone -] 7.5 mg PO DAILY 10/26/16 Albuterol 2.5/Ipratropium 0.5 1 amp NEB Q6H 01/20/18 [Duoneb -] Albuterol Sulfate [Proair Hfa] 2 puff IH Q4H 01/20/18 Atorvastatin Ca [Lipitor] 40 mg PO HS 01/20/18 Cholecalciferol (Vitamin D3) 1,000 unit PO DAILY 01/20/18 [Vitamin D3] A/P: Patient is a 72yo female with pmhx of COPD (O2 dependent), R facial spasms (if does not take Klonopin) , cervical cx s/p hysterectomy, osteoporosis presented with worsening shortness of breath. # Acute COPD exacerbation with RML infiltrate - No PE on CTPA. Will treat with IV rocephin, zithromycin, spiriva, symbicort and O2 nasal cannula 2/min. will hold duoneb since patient is having tachycardia , and is on Spiriva at home # Obesity - discussed weight loss. Consult sole stapler welt. DVT prophylaxis - Heparin 5000u sq tid. Advance directives - Full code Visit type - Emergency Visit Emergency Visit: Yes ED Registration Date: 01/20/18 Care time: The patient presented to the Emergency Department on the above date and was hospitalized for further evaluation of their emergent condition. - New Patient This patient is new to me today: Yes Date on this admission: 01/22/18 - Critical Care Critical Care patient: No - Discharge Referral Referred to [facility] No
--- NOTE | 2018-01-21 19:03 | EKG ---
Test Reason : Blood Pressure : / mmHG Vent. Rate : 120 BPM Atrial Rate : 120 BPM P-R Int : 126 ms QRS Dur : 070 ms QT Int : 316 ms P-R-T Axes : 058 033 062 degrees QTc Int : 446 ms SINUS TACHYCARDIA POSSIBLE LEFT ATRIAL ENLARGEMENT NONSPECIFIC ST AND T WAVE ABNORMALITY ABNORMAL ECG WHEN COMPARED WITH ECG OF 26-OCT-2016 16:15, NO SIGNIFICANT CHANGE WAS FOUND Confirmed by MD RENEE, DWAIN ([id number]) on 01/21/2018 7:03:05 PM Referred By: Confirmed By:DWAIN DURAN MD
[2018-01-22] MEDS: methylPREDNISolone NA SUCC 40 MG/1 ML VIAL IVPB SCH ×3 (06:06→21:01)
[2018-01-22] MEDS: HEPARIN NA (PORCINE) 5,000 UNITS/ML 1ML VIAL SQ SCH ×3 (06:06→21:02)
[2018-01-22] MEDS ORDERED: cefTRIAXone SODIUM 1 GM VIAL ONE (09:16)
[2018-01-22] MEDS ORDERED: DEXTROSE 5%-WATER - 50 ML IVPB ONE (09:16)
[2018-01-22] MEDS ORDERED: PT OWN MED DRAWER 7, Y5N ONE ×2 (09:18→17:15)
[2018-01-22] MEDS: AZITHROMYCIN IVPB 500 MG in DEXTROSE 5%-WATER - 250 ML IVPB SCH (10:00)
[2018-01-22 10:01] LABS: HEMATOCRIT 33.8 % (32.4-45.2); HEMOGLOBIN 10.7 GM/dL (10.7-15.3); MCH 25.5 pg (25.7-33.7); MCHC 31.7 g/dl (32.0-36.0); MEAN CELL VOLUME 80.4 fl (80-96); MEAN PLT VOLUME 7.6 fl (7.5-11.1); PLATELET COUNT 302 K/MM3 (134-434); RDW 17.5 % (11.6-15.6); WHITE BLOOD COUNT 10.4 K/mm3 (4.0-10.0)
[2018-01-22] MEDS: TIOTROPIUM BROMIDE 2.5 MCG (SPIRIVA) RESPIMAT INHALER IH SCH (10:09)
[2018-01-22] MEDS: CEFTRIAXONE 1 GM in DEXTROSE 5%-WATER - 50 ML IVPB SCH (10:09)
[2018-01-22] MEDS: BUDESONIDE/FORMETEROL FUMARATE 80/4.5 mcg INHALER IH SCH ×2 (10:10→21:04)
[2018-01-22] MEDS: ERYTHROMYCIN 0.5% OPHTHALMIC OINTMENT 3.5 GM TUBE OD SCH ×4 (10:10→21:03)
[2018-01-22 10:30] LABS: CHLORIDE 103 mmol/L (98-107); POTASSIUM 4.7 mmol/L (3.5-5.1); SODIUM 146 mmol/L (136-145)
[2018-01-22 10:42] LABS: ALBUMIN 3.2 g/dl (3.4-5.0); ALK PHOS 105 U/L (45-117); ANION GAP 9 (8-16); BILIRUBIN,TOTAL 0.2 mg/dL (0.2-1.0); BLOOD UREA NITROGEN 24 mg/dL (7-18); CALCIUM 8.3 mg/dL (8.5-10.1); CO2 34 mmol/L (21-32); GLUCOSE,RANDOM 188 mg/dL (74-106); MAGNESIUM 2.5 mg/dL (1.8-2.4); PHOSPHOROUS 3.9 mg/dL (2.5-4.9); SGOT/AST 11 U/L (15-37); SGPT/ALT 11 U/L (12-78); TOT PROT 6.3 g/dl (6.4-8.2)
--- NOTE | 2018-01-22 12:48 | PN ---
<ElainejimmyYefri bonner - Last Filed: 01/22/18 12:52> Physical Exam: SUBJECTIVE: Patient seen and examined at bedside. No new complaints. OBJECTIVE: Vital Signs Temperature 97.9 F 01/22/18 06:14 Pulse Rate 104 H 01/22/18 06:14 Respiratory Rate 20 01/22/18 06:14 Blood Pressure 120/71 01/22/18 06:14 O2 Sat by Pulse Oximetry (%) 93 L 01/21/18 21:00 GENERAL: The patient is awake, alert, and fully oriented, in no acute distress. NECK: Trachea midline, full range of motion, supple. LUNGS: Breath sounds equal, decreased air entry b/l, scant inspiratory wheezes, no accessory muscle use. HEART: Regular rate and rhythm, S1, S2 without murmur, rub or gallop. ABDOMEN: Soft, nontender, nondistended, normoactive bowel sounds, no guarding, no rebound, no hepatosplenomegaly, no masses. EXTREMITIES: 2+ pulses, warm, well-perfused, no edema. NEUROLOGICAL: Cranial nerves II through X grossly intact. Normal speech, gait not observed. SKIN: Warm, dry, normal turgor, no rashes or lesions noted Home Medication List Medication Instructions Recorded Confirmed Type Acetaminophen [Mapap] 650 mg PO PRN 10/26/16 01/20/18 History Albuterol 0.083% Nebulizer Opal 1 neb NEB Q6H PRN 10/26/16 01/20/18 History [Ventolin 0.083% Nebulizer Soln -] Aspirin [ASA -] 81 mg PO DAILY 10/26/16 01/20/18 History Citalopram Hydrobromide 20 mg PO DAILY 10/26/16 01/20/18 History [Citalopram HBr] Clonazepam [Klonopin] 1 mg PO HS 10/26/16 01/20/18 History Denosumab [Prolia] 60 mg SQ ASDIR 10/26/16 01/20/18 History Docusate Sodium [Colace -] 300 mg PO HS 10/26/16 01/20/18 History Metoprolol Tartrate [Lopressor] 100 mg PO BID 10/26/16 01/20/18 History Omeprazole 40 mg PO DAILY 10/26/16 01/20/18 History Umeclidinium Brm/Vilanterol Tr 1 each IH DAILY 10/26/16 01/20/18 History [Anoro Ellipta 62.5-25 Mcg INH] Verapamil HCl 120 mg PO DAILY 10/26/16 01/20/18 History clonazePAM [Klonopin -] 0.5 mg PO AM 10/26/16 01/20/18 History predniSONE [Deltasone -] 7.5 mg PO DAILY 10/26/16 01/20/18 History Albuterol 2.5/Ipratropium 0.5 1 amp NEB Q6H 01/20/18 01/20/18 History [Duoneb -] Albuterol Sulfate [Proair Hfa] 2 puff IH Q4H 01/20/18 01/20/18 History Atorvastatin Ca [Lipitor] 40 mg PO HS 01/20/18 01/20/18 History Cholecalciferol (Vitamin D3) 1,000 unit PO DAILY 01/20/18 01/20/18 History [Vitamin D3] Active Medications Budesonide/Formoterol Fumarate (Symbicort 80/4.5mcg -) 2 puff IH BID [facility] Last Admin: 01/22/18 10:10 Dose: 2 puff Erythromycin (Erythromycin 0.5% Eye Ointment) 1 applic OD QID [facility] Last Admin: 01/22/18 10:10 Dose: 1 dose Heparin Sodium (Porcine) (Heparin -) 5,000 unit SQ TID [facility] Last Admin: 01/22/18 06:06 Dose: 5,000 unit Azithromycin 500 mg/ Dextrose 250 mls @ 250 mls/hr IVPB DAILY [facility] Last Admin: 01/22/18 10:00 Dose: 250 mls/hr Ceftriaxone Sodium 1 gm/ (Dextrose) 50 mls @ 100 mls/hr IVPB DAILY [facility] Last Admin: 01/22/18 10:09 Dose: 100 mls/hr Methylprednisolone Sodium Succinate (Solu-Medrol -) 40 mg IVPB TID [facility] Last Admin: 01/22/18 06:06 Dose: 40 mg Tiotropium [place] (Spiriva Respimat) 2 puff IH DAILY [facility] Last Admin: 01/22/18 10:09 Dose: 2 puff Active Medications ASSESSMENT/PLAN: The patient is a 72 yo F w/ pmhx of COPD (O2 dependent), R facial spasms, cervical cx s/p hysterectomy, osteoporosis admitted for COPD exacerbation #acute COPD exacerbation w/ R middle lobe infiltrate -cont Ceftriaxone 1gm daily -cont Azithromycin 500 mg daily -Solumedrol 40 mg IV TID -Symbicort 2 puffs Q12H -Spiriva 2 puffs Q12H -Pulm eval might be needed to assess pt's JANETTE #Conjunctivitis, R eye -topical erythromycin #Morbid obesity -university counselor pt on eating habits -recorder of deeds consult #R facial spasms -restart Klonopin 1 mg PO HS #HTN -hold BP meds until meds reconciled #DVT Ppx -Heparin 5k units SQ TID #FEN -no IVf indicated -monitor lytes -Regular diet dispo -admit to med-surg Visit type - Emergency Visit Emergency Visit: Yes ED Registration Date: 01/20/18 Care time: The patient presented to the Emergency Department on the above date and was hospitalized for further evaluation of their emergent condition. - New Patient This patient is new to me today: No - Critical Care Critical Care patient: No <Odette Rodriguez - Last Filed: 01/22/18 19:03> Physical Exam: Agree with the resident's note. c/o having cough, but refusing Robitussin with codeine. Vital Signs Temperature 98.3 F 01/22/18 14:02 Pulse Rate 116 H 01/22/18 14:02 Respiratory Rate 18 01/22/18 14:02 Blood Pressure 138/72 01/22/18 14:02 O2 Sat by Pulse Oximetry (%) 96 01/22/18 09:00 Laboratory Results - last 24 hr 01/22/18 01/22/18 09:04 09:07 WBC 10.4 H RBC 4.20 Hgb 10.7 Hct 33.8 MCV 80.4 MCH 25.5 L MCHC 31.7 L RDW 17.5 H Plt Count 302 D MPV 7.6 Sodium 146 H Potassium 4.7 Chloride 103 Carbon Dioxide 34 H Anion Gap 9 BUN 24 H Creatinine 1.0 Creat Clearance w eGFR 54.50 Random Glucose 188 H Calcium 8.3 L Phosphorus 3.9 Magnesium 2.5 H Total Bilirubin 0.2 AST 11 L ALT 11 L Alkaline Phosphatase 105 Total Protein 6.3 L Albumin 3.2 L Active Medications Generic Name Dose Route Start Last Admin Trade Name Freq PRN Reason Stop Dose Admin Aspirin 81 mg 01/22/18 14:45 01/22/18 16:39 Asa - PO 81 mg DAILY FABIOLA Administration Atorvastatin Calcium 40 mg 01/22/18 22:00 Lipitor - PO HS FABIOLA Budesonide/Formoterol Fumarate 2 puff 01/21/18 10:00 01/22/18 10:10 Symbicort 80/4.5mcg - IH 2 puff BID FABIOLA Administration Clonazepam 0.5 mg 01/23/18 07:00 Klonopin - PO AM FABIOLA Clonazepam 1 mg 01/22/18 22:00 Klonopin - PO HS FABIOLA Docusate Sodium 300 mg 01/22/18 22:00 Colace - PO HS FABIOLA Erythromycin 1 applic 01/20/18 23:15 01/22/18 17:10 Erythromycin 0.5% Eye Ointment OD 1 dose QID FABIOLA Administration Heparin Sodium (Porcine) 5,000 unit 01/21/18 14:00 01/22/18 14:21 Heparin - SQ 5,000 unit TID FABIOLA Administration Azithromycin 500 mg/ Dextrose 250 mls @ 250 mls/hr 01/21/18 10:00 01/22/18 10 :00 IVPB 250 mls/hr DAILY FABIOLA Administration Ceftriaxone Sodium 1 gm/ 50 mls @ 100 mls/hr 01/21/18 10:00 01/22/18 10:09 Dextrose IVPB 100 mls/hr DAILY FABIOLA Administration Methylprednisolone Sodium Succinate 40 mg 01/20/18 22:45 01/22/18 14:20 Solu-Medrol - IVPB 40 mg TID FABIOLA Administration Metoprolol Tartrate 100 mg 01/22/18 22:00 Lopressor - PO BID FABIOLA Pantoprazole Sodium 40 mg 01/22/18 14:45 01/22/18 16:39 Protonix - PO 40 mg DAILY FABIOLA Administration Tiotropium [place] 2 puff 01/21/18 10:00 01/22/18 10:09 Spiriva Respimat IH 2 puff DAILY FABIOLA Administration Verapamil HCl 120 mg 01/22/18 14:45 01/22/18 16:53 Verapamil Hcl PO 120 mg DAILY FABIOLA Administration Home Medications Medication Instructions Recorded Acetaminophen [Mapap] 650 mg PO PRN 10/26/16 Albuterol 0.083% Nebulizer Opal 1 neb NEB Q6H PRN 10/26/16 [Ventolin 0.083% Nebulizer Soln -] Aspirin [ASA -] 81 mg PO DAILY 10/26/16 Citalopram Hydrobromide 20 mg PO DAILY 10/26/16 [Citalopram HBr] Clonazepam [Klonopin] 1 mg PO HS 10/26/16 Denosumab [Prolia] 60 mg SQ ASDIR 10/26/16 Docusate Sodium [Colace -] 300 mg PO HS 10/26/16 Metoprolol Tartrate [Lopressor] 100 mg PO BID 10/26/16 Omeprazole 40 mg PO DAILY 10/26/16 Umeclidinium Brm/Vilanterol Tr 1 each IH DAILY 10/26/16 [Anoro Ellipta 62.5-25 Mcg INH] Verapamil HCl 120 mg PO DAILY 10/26/16 clonazePAM [Klonopin -] 0.5 mg PO AM 10/26/16 predniSONE [Deltasone -] 7.5 mg PO DAILY 10/26/16 Albuterol 2.5/Ipratropium 0.5 1 amp NEB Q6H 01/20/18 [Duoneb -] Albuterol Sulfate [Proair Hfa] 2 puff IH Q4H 01/20/18 Atorvastatin Ca [Lipitor] 40 mg PO HS 01/20/18 Cholecalciferol (Vitamin D3) 1,000 unit PO DAILY 01/20/18 [Vitamin D3]
[2018-01-22] MEDS ORDERED: CITALOPRAM HYDROBROMIDE 20 MG TABLET (FP) PO SCH ×2 (14:45→15:30)
[2018-01-22] MEDS: ASPIRIN 81 MG CHEWABLE TABLETS PO SCH (16:39)
[2018-01-22] MEDS: PANTOPRAZOLE 40 MG TABLET (FP) PO SCH (16:39)
[2018-01-22] MEDS: VERAPAMIL HCL 120 MG TABLET PO SCH (16:53)
--- NOTE | 2018-01-22 19:09 | EKG ---
Test Reason : Blood Pressure : / mmHG Vent. Rate : 104 BPM Atrial Rate : 104 BPM P-R Int : 118 ms QRS Dur : 072 ms QT Int : 336 ms P-R-T Axes : 064 044 067 degrees QTc Int : 441 ms SINUS TACHYCARDIA NONSPECIFIC ST AND T WAVE ABNORMALITY ABNORMAL ECG WHEN COMPARED WITH ECG OF 20-JAN-2018 15:14, NO SIGNIFICANT CHANGE WAS FOUND Confirmed by MD RENEE, DWAIN ([id number]) on 01/22/2018 7:08:38 PM Referred By: Serafin EVANS Confirmed By:DWAIN DURAN MD
[2018-01-22] MEDS: ATORVASTATIN CA 40 MG TABLET (FP) PO SCH (21:02)
[2018-01-22] MEDS: DOCUSATE SODIUM 100 MG CAPSULE (FP) PO SCH (21:02)
[2018-01-22] MEDS: METOPROLOL TARTRATE 50 MG TABLET (FP) PO SCH (21:02)
[2018-01-22] MEDS: clonazePAM 0.5 MG TABLET PO SCH (21:03)
[2018-01-23] MEDS: HEPARIN NA (PORCINE) 5,000 UNITS/ML 1ML VIAL SQ SCH ×3 (06:08→21:29)
[2018-01-23] MEDS: methylPREDNISolone NA SUCC 40 MG/1 ML VIAL IVPB SCH ×3 (06:09→17:20)
[2018-01-23] MEDS: clonazePAM 0.5 MG TABLET PO SCH (06:09)
[2018-01-23 07:19] LABS: HEMATOCRIT 32.9 % (32.4-45.2); HEMOGLOBIN 10.5 GM/dL (10.7-15.3); MCH 25.9 pg (25.7-33.7); MCHC 31.9 g/dl (32.0-36.0); MEAN CELL VOLUME 81.1 fl (80-96); MEAN PLT VOLUME 7.3 fl (7.5-11.1); PLATELET COUNT 298 K/MM3 (134-434); RBC 4.06 M/mm3 (3.60-5.2); RDW 17.6 % (11.6-15.6); WHITE BLOOD COUNT 9.4 K/mm3 (4.0-10.0)
[2018-01-23 07:50] LABS: ANION GAP 3 (8-16); BLOOD UREA NITROGEN 27 mg/dL (7-18); CALCIUM 7.9 mg/dL (8.5-10.1); CHLORIDE 102 mmol/L (98-107); CO2 39 mmol/L (21-32); GLUCOSE,RANDOM 171 mg/dL (74-106); POTASSIUM 5.1 mmol/L (3.5-5.1); SODIUM 144 mmol/L (136-145)
[2018-01-23] MEDS ORDERED: PT OWN MED DRAWER 7, Y5N ONE ×5 (10:36→22:13)
[2018-01-23] MEDS ORDERED: cefTRIAXone SODIUM 1 GM VIAL ONE (10:37)
[2018-01-23] MEDS ORDERED: DEXTROSE 5%-WATER - 50 ML IVPB ONE (10:37)
[2018-01-23] MEDS: METOPROLOL TARTRATE 50 MG TABLET (FP) PO SCH ×2 (10:41→21:29)
[2018-01-23] MEDS: ASPIRIN 81 MG CHEWABLE TABLETS PO SCH (10:41)
[2018-01-23] MEDS: CEFTRIAXONE 1 GM in DEXTROSE 5%-WATER - 50 ML IVPB SCH (10:42)
[2018-01-23] MEDS: PANTOPRAZOLE 40 MG TABLET (FP) PO SCH (10:42)
[2018-01-23] MEDS: BUDESONIDE/FORMETEROL FUMARATE 80/4.5 mcg INHALER IH SCH (10:42)
[2018-01-23] MEDS: TIOTROPIUM BROMIDE 2.5 MCG (SPIRIVA) RESPIMAT INHALER IH SCH (10:43)
[2018-01-23] MEDS: ERYTHROMYCIN 0.5% OPHTHALMIC OINTMENT 3.5 GM TUBE OD SCH ×4 (10:43→21:36)
[2018-01-23] MEDS: VERAPAMIL HCL 120 MG TABLET PO SCH (10:43)
[2018-01-23] MEDS: AZITHROMYCIN IVPB 500 MG in DEXTROSE 5%-WATER - 250 ML IVPB SCH (11:26)
--- NOTE | 2018-01-23 13:11 | PN ---
Physical Exam: SUBJECTIVE: Patient seen and examined at bedside. No acute events overnight. OBJECTIVE: Vital Signs Temperature 97.7 F 01/23/18 09:00 Pulse Rate 91 H 01/23/18 09:00 Respiratory Rate 20 01/23/18 06:00 Blood Pressure 132/90 01/23/18 09:00 O2 Sat by Pulse Oximetry (%) 4 L 01/23/18 09:00 GENERAL: The patient is awake, alert, and fully oriented, in no acute distress. NECK: Trachea midline, full range of motion, supple. LUNGS: Breath sounds equal, decreased air entry b/l, scant inspiratory wheezes, no accessory muscle use. HEART: Regular rate and rhythm, S1, S2 without murmur, rub or gallop. ABDOMEN: Soft, nontender, nondistended, normoactive bowel sounds, no guarding, no rebound, no hepatosplenomegaly, no masses. EXTREMITIES: 2+ pulses, warm, well-perfused, no edema. NEUROLOGICAL: Cranial nerves II through X grossly intact. Normal speech, gait not observed. SKIN: Warm, dry, normal turgor, no rashes or lesions noted CBC, BMP 01/23/18 06:00 01/23/18 06:00 Hepatic Panel Total Bilirubin 0.2 mg/dL (0.2-1.0) 01/22/18 09:07 AST 11 U/L (15-37) L 01/22/18 09:07 ALT 11 U/L (12-78) L 01/22/18 09:07 Alkaline Phosphatase 105 U/L (45-117) 01/22/18 09:07 Albumin 3.2 g/dl (3.4-5.0) L 01/22/18 09:07 ABG Results ABG pH 7.29 (7.35-7.45) L 01/23/18 15:55 ABG pCO2 at Pt Temp 72.9 mmHg (35-45) H* 01/23/18 15:55 ABG pO2 at Pt Temp 65.4 mmHg (70-100) L 01/23/18 15:55 ABG HCO3 34.1 meq/L (22-26) H 01/23/18 15:55 ABG O2 Sat (Measured) 90.0 % (90-98.9) 01/23/18 15:55 ABG O2 Content 12.9 % vol (15-22) L 01/23/18 15:55 ABG Base Excess 6.2 meq/l (-2-2) H 01/23/18 15:55 Active Medications Aspirin (Asa -) 81 mg PO DAILY [facility] Last Admin: 01/23/18 10:41 Dose: 81 mg Atorvastatin Calcium (Lipitor -) 40 mg PO HS [facility] Last Admin: 01/22/18 21:02 Dose: 40 mg Budesonide/Formoterol Fumarate (Symbicort 160/4.5mcg -) 2 puff IH BID [facility] Clonazepam (Klonopin -) 0.5 mg PO AM [facility] Last Admin: 01/23/18 06:09 Dose: 0.5 mg Clonazepam (Klonopin -) 1 mg PO HS [facility] Last Admin: 01/22/18 21:03 Dose: 1 mg Docusate Sodium (Colace -) 300 mg PO HS [facility] Last Admin: 01/22/18 21:02 Dose: 300 mg Erythromycin (Erythromycin 0.5% Eye Ointment) 1 applic OD QID [facility] Last Admin: 01/23/18 13:07 Dose: 1 dose Heparin Sodium (Porcine) (Heparin -) 5,000 unit SQ TID [facility] Last Admin: 01/23/18 13:07 Dose: 5,000 unit Azithromycin 500 mg/ Dextrose 250 mls @ 250 mls/hr IVPB DAILY [facility] Last Admin: 01/23/18 11:26 Dose: 250 mls/hr Ceftriaxone Sodium 1 gm/ (Dextrose) 50 mls @ 100 mls/hr IVPB DAILY [facility] Last Admin: 01/23/18 10:42 Dose: 100 mls/hr Methylprednisolone Sodium Succinate (Solu-Medrol -) 60 mg IVPB Q8H-IV [facility] Last Admin: 01/23/18 13:07 Dose: 60 mg Metoprolol Tartrate (Lopressor -) 100 mg PO BID [facility] Last Admin: 01/23/18 10:41 Dose: 100 mg Pantoprazole Sodium (Protonix -) 40 mg PO DAILY [facility] Last Admin: 01/23/18 10:42 Dose: 40 mg Tiotropium [place] (Spiriva Respimat) 2 puff IH DAILY [facility] Last Admin: 01/23/18 10:43 Dose: 2 puff Verapamil HCl (Verapamil Hcl) 120 mg PO DAILY [facility] Last Admin: 01/23/18 10:43 Dose: 120 mg IMAGING: CT Chest: No CT evidence of pulmonary embolism. Centrilobular emphysema which is probably moderate. Correlate clinically. Small opacities are noted within the right middle lobe suggestive of infiltrates. Left lower lobe linear oblique opacity is noted which could be on a postsurgical basis. This linear opacity extends to the chest wall with an associated small chest wall defect. A small amount of lung herniation is seen at that site into the extrathoracic soft tissues. Nonspecific bilateral pulmonary nodules are visualized. Correlation with 2 month follow-up CT is essential if prior CT studies are not available from a different facility for direct comparison. Small pericardial effusion. The main pulmonary diameter is mildly prominent suggestive of possible increased pulmonary arterial pressure. A nonspecific 1.5 cm right renal cortical hypodense lesion is seen which could represent a complex cyst versus neoplastic disease on the basis of the current exam. MRI evaluation is suggested , preferably without and with intravenous contrast. Note is made of several small nonspecific left and right hepatic lobe foci as discussed above. MRI evaluation is also suggested in this regard. Moderate hiatal hernia. CXR: Since 10/26/2016, again noted is the large heart with prominent right hilar markings. There may be some atelectasis at the right base. The bones and soft tissues are intact and the left lung is clear. Correlation recommended. Follow- up imaging suggested. ASSESSMENT/PLAN: The patient is a 72 yo F w/ pmhx of COPD (O2 dependent), R facial spasms, cervical cx s/p hysterectomy, osteoporosis admitted for COPD exacerbation #acute COPD exacerbation w/ R middle lobe infiltrate -cont Ceftriaxone 1gm daily -cont Azithromycin 500 mg daily -Solumedrol 40 mg IV TID -Increase Symbicort from 80 to 160, 2 puffs Q12H -Spiriva 2 puffs Q12H -BiPAP today, then CPAP at night #acute on chronic hypoxemic/hypercapneic respiratory failure; 7.29/72.9/65.4/ 34.1 -Per pulm: change BiPap settings to 18/6, rate 20 -transfer to tele for close monitoring -f/u repeat ABG at 6pm #Morbid obesity -head counselor pt on eating habits #constipation -Colace 300 mg PO HS #R facial spasms -hold Klonopin 1 mg PO HS, 0.5 mg PO AM to avoid sedatives while patient is in current clinical state #HTN -Metoprolol Tartrate 100 mg PO BID #Conjunctivitis, R eye; improved. -topical erythromycin #DVT Ppx -Heparin 5000U SQ TID #FEN -no IVf indicated -monitor lytes -Regular diet dispo -transfer to tele Visit type - Emergency Visit Emergency Visit: Yes ED Registration Date: 01/20/18 Care time: The patient presented to the Emergency Department on the above date and was hospitalized for further evaluation of their emergent condition. - New Patient This patient is new to me today: No - Critical Care Critical Care patient: No
[2018-01-23] MEDS: BUDESONIDE/FORMETEROL FUMARATE 160/4.5 mcg INHALER IH SCH ×3 (14:47→22:15)
--- NOTE | 2018-01-23 15:51 | PN ---
Progress Note (short form) - Note Progress Note: PULMONARY CONSULTATION DICTATED 01/23/18 IMP ACUTE ON CHRONIC HYPOXEMIC/HYPERCAPNEIC RESPIRATORY FAILURE ADVANCED COPD O2 DEPENDENT RML INFILTRATE RUL PULMONARY NODULE ? MALIGNANT H/O CERVICAL CA S/P HYSTERECTOMY PLAN O2 TO MAINTAIN O2 SAT 90% OR GREATER NIPPV NEEDED INHALED BRONCHODILATORS ABX F/U ABG DVT PROPHYLAXIS PET CT OUTPATIENT DR HAMMOND Problem List - Problems (1) Acute on chronic respiratory failure with hypoxia and hypercapnia Code(s): J96.21 - ACUTE AND CHRONIC RESPIRATORY FAILURE WITH HYPOXIA; J96.22 - ACUTE AND CHRONIC RESPIRATORY FAILURE WITH HYPERCAPNIA (2) Emphysema of lung Code(s): J43.9 - EMPHYSEMA, UNSPECIFIED (3) COPD exacerbation Code(s): J44.1 - CHRONIC OBSTRUCTIVE PULMONARY DISEASE W (ACUTE) EXACERBATION (4) Pneumonia Code(s): J18.9 - PNEUMONIA, UNSPECIFIED ORGANISM (5) Lung nodule Code(s): R91.1 - SOLITARY PULMONARY NODULE
[2018-01-23 16:00] LABS: ARTERIAL BLOOD GAS BASE EXCESS 6.2 meq/l (-2-2); ARTERIAL BLOOD GAS PO2 65.4 mmHg (70-100); ARTERIAL BLOOD GAS pH 7.29 (7.35-7.45)
[2018-01-23 16:03] LABS: ARTERIAL BLOOD GAS PCO2 72.9 mmHg (35-45)
--- NOTE | 2018-01-23 18:20 | CONS ---
DATE OF CONSULTATION: 01/23/2018 REFERRING PHYSICIAN: Odette Rodriguez MD HISTORY: History is obtained from the chart. Patient is currently very lethargic on BiPAP. The patient is a 72-year-old white female with a past medical history of advanced COPD, O2 dependent; right facial spasm, cervical cancer status post hysterectomy, osteoporosis, admitted to [facility] on January 20 with increasing shortness of breath, cough, and chest congestion. Patient apparently the day prior to admission started developing increasing shortness of breath when she was getting up from her chair at home. Apparently she used her inhaler without any improvement. Patient also admitted to cough productive of yellow green sputum. She denied any fevers, chills, nausea, vomiting. Patient currently resides in an assisted living facility. On admission, the patient underwent a CTA of the chest which revealed no evidence of pulmonary emboli but revealed a nodular density in the posterior segment of the right upper lobe as well as right middle lobe infiltrates. She was also noted to be hypercapnic with a blood gas pH of 7.25 and a PCO2 of 78. Apparently she was started on antibiotic therapy and inhaled bronchodilators and steroids. Today she started developing increasing shortness of breath and respiratory distress. She was apparently placed on BiPAP. Patient has history of tobacco use, 1-2 packs a day for many years, quit 4 years ago. She denies any history of occupational exposure to chemicals or fumes. PAST MEDICAL HISTORY: Again includes advanced COPD on home O2, history of cervical cancer status post hysterectomy, right facial spasms. REVIEW OF SYSTEMS: Unable to obtain at this time. Patient is very lethargic. CURRENT MEDICATIONS: Include Symbicort 160/4.5, Solu-Medrol 60 q.8, Zithromax, ceftriaxone, erythromycin ointment, heparin subcutaneous, Spiriva, Klonopin, Lopressor, verapamil, Colace, aspirin, Protonix. PHYSICAL EXAMINATION: General: The patient is a well-developed, well-nourished female, lethargic on BiPAP. Vital Signs: She is currently afebrile. Blood pressure is 132/90. Respiratory rate is 20. O2 saturation is 97%. HEENT: Exam is normocephalic, atraumatic. Neck: Supple. Heart: Regular, S1, S2. Chest: Diminished breath sounds bilaterally. Poor inspiratory effort. Abdomen: Soft. Bowel sounds are positive. Extremities: No cyanosis or edema. LABORATORY: Venous blood gas initially 7.33, PCO2 of 63, a PO2 of 55, bicarbonate 33. Most recent on January 21, 7.25 pH, PCO2 of 78, a PO2 of 73, bicarbonate of 32, and a saturation of 92.1 on 3 L nasal cannula. BUN 27, creatinine 1.0. WBC is 9.4, hemoglobin 10.5, hematocrit 32.0, with a platelet count of 298,000. Chest CTA reveals a 1.1-cm nodule posterior segment, right upper lobe; COPD changes bilaterally; 0.3-cm noncalcified nodule in the left upper lobe, posterior segment. IMPRESSION: 1. Acute on chronic hypoxemic/hypercapneic respiratory failure secondary to decompressed COPD. 2. Right middle lobe pneumonia. 3. History of cervical cancer status post hysterectomy. 4. Right upper lobe nodule, possible malignant versus inflammatory. PLAN: BiPAP O2. Check arterial blood gas. Antibiotic therapy, inhaled bronchodilators, steroids. pulmonary nodule, consider PET scan as outpatient. Sputum for culture and sensitivity. AMANDA HAMMOND M.D. [id number]
--- NOTE | 2018-01-23 19:41 | PN ---
Teaching Attending Note Name of Resident: Farida Garcia ATTENDING PHYSICIAN STATEMENT I saw and evaluated the patient. I reviewed the resident's note and discussed the case with the resident. I agree with the resident's findings and plan as documented. SUBJECTIVE: patient is having difficulty with breathing. OBJECTIVE: Vital Signs Temperature 97.7 F 01/23/18 09:00 Pulse Rate 84 01/23/18 18:18 Respiratory Rate 20 01/23/18 18:18 Blood Pressure 115/72 01/23/18 18:18 O2 Sat by Pulse Oximetry (%) 97 01/23/18 18:15 CBCD WBC 9.4 K/mm3 (4.0-10.0) 01/23/18 06:00 RBC 4.06 M/mm3 (3.60-5.2) 01/23/18 06:00 Hgb 10.5 GM/dL (10.7-15.3) L 01/23/18 06:00 Hct 32.9 % (32.4-45.2) 01/23/18 06:00 MCV 81.1 fl (80-96) 01/23/18 06:00 MCHC 31.9 g/dl (32.0-36.0) L 01/23/18 06:00 RDW 17.6 % (11.6-15.6) H 01/23/18 06:00 Plt Count 298 K/MM3 (134-434) 01/23/18 06:00 MPV 7.3 fl (7.5-11.1) L 01/23/18 06:00 CMP Sodium 144 mmol/L (136-145) 01/23/18 06:00 Potassium 5.1 mmol/L (3.5-5.1) 01/23/18 06:00 Chloride 102 mmol/L (98-107) 01/23/18 06:00 Carbon Dioxide 39 mmol/L (21-32) H 01/23/18 06:00 Anion Gap 3 (8-16) L 01/23/18 06:00 BUN 27 mg/dL (7-18) H 01/23/18 06:00 Creatinine 1.0 mg/dL (0.55-1.02) 01/23/18 06:00 Creat Clearance w eGFR 54.50 (>60) 01/23/18 06:00 Random Glucose 171 mg/dL (74-106) H 01/23/18 06:00 Calcium 7.9 mg/dL (8.5-10.1) L 01/23/18 06:00 Total Bilirubin 0.2 mg/dL (0.2-1.0) 01/22/18 09:07 AST 11 U/L (15-37) L 01/22/18 09:07 ALT 11 U/L (12-78) L 01/22/18 09:07 Alkaline Phosphatase 105 U/L (45-117) 01/22/18 09:07 Total Protein 6.3 g/dl (6.4-8.2) L 01/22/18 09:07 Albumin 3.2 g/dl (3.4-5.0) L 01/22/18 09:07 CARDIAC ENZYMES Creatine Kinase 40 IU/L (26-192) 01/20/18 15:40 Troponin I < 0.02 ng/ml (0.00-0.05) 01/20/18 15:40 Current Medications Generic Name Dose Route Start Last Admin Trade Name Shanna PRN Reason Stop Dose Admin Aspirin 81 mg 01/22/18 14:45 01/23/18 10:41 Asa - PO 81 mg DAILY FABIOLA Administration Atorvastatin Calcium 40 mg 01/22/18 22:00 01/22/18 21:02 Lipitor - PO 40 mg HS FABIOLA Administration Budesonide/Formoterol Fumarate 2 puff 01/23/18 12:30 01/23/18 14:47 Symbicort 160/4.5mcg - IH Not Given BID FABIOLA Clonazepam 0.5 mg 01/23/18 07:00 01/23/18 06:09 Klonopin - PO 0.5 mg AM FABIOLA Administration Clonazepam 1 mg 01/22/18 22:00 01/22/18 21:03 Klonopin - PO 1 mg HS FABIOLA Administration Docusate Sodium 300 mg 01/22/18 22:00 01/22/18 21:02 Colace - PO 300 mg HS FABIOLA Administration Erythromycin 1 applic 01/20/18 23:15 01/23/18 17:20 Erythromycin 0.5% Eye Ointment OD 1 dose QID FABIOLA Administration Heparin Sodium (Porcine) 5,000 unit 01/21/18 14:00 01/23/18 13:07 Heparin - SQ 5,000 unit TID FABIOLA Administration Azithromycin 500 mg/ Dextrose 250 mls @ 250 mls/hr 01/21/18 10:00 01/23/18 11 :26 IVPB 250 mls/hr DAILY FABIOLA Administration Ceftriaxone Sodium 1 gm/ 50 mls @ 100 mls/hr 01/21/18 10:00 01/23/18 10:42 Dextrose IVPB 100 mls/hr DAILY FABIOLA Administration Methylprednisolone Sodium Succinate 60 mg 01/23/18 12:29 01/23/18 17:20 Solu-Medrol - IVPB 60 mg Q8H-IV FABIOLA Administration Metoprolol Tartrate 100 mg 01/22/18 22:00 01/23/18 10:41 Lopressor - PO 100 mg BID FABIOLA Administration Pantoprazole Sodium 40 mg 01/22/18 14:45 01/23/18 10:42 Protonix - PO 40 mg DAILY FABIOLA Administration Tiotropium [place] 2 puff 01/21/18 10:00 01/23/18 10:43 Spiriva Respimat IH 2 puff DAILY FABIOLA Administration Verapamil HCl 120 mg 01/22/18 14:45 01/23/18 10:43 Verapamil Hcl PO 120 mg DAILY FABIOLA Administration Home Medications Medication Instructions Recorded Acetaminophen [Mapap] 650 mg PO PRN 10/26/16 Albuterol 0.083% Nebulizer Opal 1 neb NEB Q6H PRN 10/26/16 [Ventolin 0.083% Nebulizer Soln -] Aspirin [ASA -] 81 mg PO DAILY 10/26/16 Citalopram Hydrobromide 20 mg PO DAILY 10/26/16 [Citalopram HBr] Clonazepam [Klonopin] 1 mg PO HS 10/26/16 Denosumab [Prolia] 60 mg SQ ASDIR 10/26/16 Docusate Sodium [Colace -] 300 mg PO HS 10/26/16 Metoprolol Tartrate [Lopressor] 100 mg PO BID 10/26/16 Omeprazole 40 mg PO DAILY 10/26/16 Umeclidinium Brm/Vilanterol Tr 1 each IH DAILY 10/26/16 [Anoro Ellipta 62.5-25 Mcg INH] Verapamil HCl 120 mg PO DAILY 10/26/16 clonazePAM [Klonopin -] 0.5 mg PO AM 10/26/16 predniSONE [Deltasone -] 7.5 mg PO DAILY 10/26/16 Albuterol 2.5/Ipratropium 0.5 1 amp NEB Q6H 01/20/18 [Duoneb -] Albuterol Sulfate [Proair Hfa] 2 puff IH Q4H 01/20/18 Atorvastatin Ca [Lipitor] 40 mg PO HS 01/20/18 Cholecalciferol (Vitamin D3) 1,000 unit PO DAILY 01/20/18 [Vitamin D3] ABG Results ABG pH 7.29 (7.35-7.45) L 01/23/18 15:55 ABG pCO2 at Pt Temp 72.9 mmHg (35-45) H* 01/23/18 15:55 ABG pO2 at Pt Temp 65.4 mmHg (70-100) L 01/23/18 15:55 ABG HCO3 34.1 meq/L (22-26) H 01/23/18 15:55 ABG O2 Sat (Measured) 90.0 % (90-98.9) 01/23/18 15:55 ABG O2 Content 12.9 % vol (15-22) L 01/23/18 15:55 ABG Base Excess 6.2 meq/l (-2-2) H 01/23/18 15:55 chest:decreased air entery bl rest of pe per resident ASSESSMENT AND PLAN: Patient is a 72yo female with pmhx of COPD (O2 dependent), R facial spasms (if does not take Klonopin) , cervical cx s/p hysterectomy, osteoporosis presented with worsening shortness of breath. # Acute COPD exacerbation with RML infiltrate - placed patient on bipap, patient is having difficulty with breathing. pulmonary consult appreciated. No PE on CTPA. continue IV Rocephin, zithromycin completed , spiriva, symbicort. will repeat bipap in one hour # Obesity - discussed weight loss. Consult nuclear auxiliary operator. DVT prophylaxis - Heparin 5000u sq tid. Advance directives - Full code
[2018-01-23 20:03] LABS: ALLENS TEST POSITIVE; ARTERIAL BLD GAS O2 SATURATION 94.1 % (90-98.9)
[2018-01-23 20:04] LABS: ARTERIAL BLOOD GAS PCO2 72.1 mmHg (35-45)
[2018-01-23] MEDS: ATORVASTATIN CA 40 MG TABLET (FP) PO SCH (21:29)
[2018-01-23] MEDS: DOCUSATE SODIUM 100 MG CAPSULE (FP) PO SCH (21:29)
[2018-01-23 23:05] LABS: ARTERIAL BLD GAS O2 SATURATION 91.9 % (90-98.9); ARTERIAL BLOOD GAS BASE EXCESS 8.2 meq/l (-2-2); ARTERIAL BLOOD GAS pH 7.32 (7.35-7.45)
[2018-01-23 23:07] LABS: ALLENS TEST POSITIVE
[2018-01-23 23:10] LABS: ARTERIAL BLOOD GAS PCO2 71.8 mmHg (35-45)
[2018-01-24] MEDS: methylPREDNISolone NA SUCC 40 MG/1 ML VIAL IVPB SCH ×2 (03:53→09:35)
[2018-01-24 06:41] LABS: BASO % 0.2 % (0-2.0); HEMATOCRIT 30.6 % (32.4-45.2); HEMOGLOBIN 9.7 GM/dL (10.7-15.3); LYMPH % 9.2 % (8-40); MCH 25.3 pg (25.7-33.7); MCHC 31.6 g/dl (32.0-36.0); MEAN CELL VOLUME 80.1 fl (80-96); MEAN PLT VOLUME 7.5 fl (7.5-11.1); MONO % 8.5 % (3.8-10.2); NEUT % 82.1 % (42.8-82.8); PLATELET COUNT 221 K/MM3 (134-434); RBC 3.82 M/mm3 (3.60-5.2); RDW 16.8 % (11.6-15.6); WHITE BLOOD COUNT 6.7 K/mm3 (4.0-10.0)
[2018-01-24] MEDS: HEPARIN NA (PORCINE) 5,000 UNITS/ML 1ML VIAL SQ SCH ×3 (06:51→21:35)
[2018-01-24 07:22] LABS: GLUCOSE,RANDOM 150 mg/dL (74-106)
[2018-01-24 07:23] LABS: ALBUMIN 2.7 g/dl (3.4-5.0); ALK PHOS 94 U/L (45-117); ANION GAP 6 (8-16); BILIRUBIN,TOTAL 0.2 mg/dL (0.2-1.0); BLOOD UREA NITROGEN 27 mg/dL (7-18); CALCIUM 7.5 mg/dL (8.5-10.1); CHLORIDE 104 mmol/L (98-107); CO2 37 mmol/L (21-32); CREATININE 0.9 mg/dL (0.55-1.02); POTASSIUM 4.6 mmol/L (3.5-5.1); SGOT/AST 37 U/L (15-37); SGPT/ALT 33 U/L (12-78); SODIUM 147 mmol/L (136-145); TOT PROT 5.3 g/dl (6.4-8.2)
--- NOTE | 2018-01-24 08:30 | PN ---
Physical Exam: SUBJECTIVE: Patient seen and examined at bedside. Pt admits to improved sleep after using BiPAP. Pt reports feeling short of breath when just walking to the bathroom. Admits to chills. Denies fever, headache, dizziness, nausea/vomiting, urinary/bowel symptoms. Chetna PO intake. OBJECTIVE: Vital Signs Temperature 97.4 F L 01/24/18 01:58 Pulse Rate 80 01/24/18 06:00 Respiratory Rate 20 01/24/18 06:00 Blood Pressure 128/50 01/24/18 06:00 O2 Sat by Pulse Oximetry (%) 94 L 01/24/18 06:30 GENERAL: The patient is awake, alert, and fully oriented, in no acute distress. NECK: Trachea midline, full range of motion, supple. LUNGS: Breath sounds equal, decreased air entry b/l, scant inspiratory wheezes, no accessory muscle use. On BiPAP. HEART: Regular rate and rhythm, S1, S2 without murmur, rub or gallop. ABDOMEN: Soft, nontender, nondistended, normoactive bowel sounds, no guarding, no rebound, no hepatosplenomegaly, no masses. EXTREMITIES: 2+ pulses, warm, well-perfused, no edema. NEUROLOGICAL: Cranial nerves II through X grossly intact. Normal speech, gait not observed. SKIN: Warm, dry, normal turgor, no rashes or lesions noted CBC, BMP 01/24/18 05:30 01/24/18 05:30 ABG Results ABG pH 7.32 (7.35-7.45) L 01/23/18 23:00 ABG pCO2 at Pt Temp 71.8 mmHg (35-45) H* 01/23/18 23:00 ABG pO2 at Pt Temp 68.0 mmHg (70-100) L 01/23/18 23:00 ABG HCO3 35.7 meq/L (22-26) H 01/23/18 23:00 ABG O2 Sat (Measured) 91.9 % (90-98.9) 01/23/18 23:00 ABG O2 Content 12.5 % vol (15-22) L 01/23/18 23:00 ABG Base Excess 8.2 meq/l (-2-2) H 01/23/18 23:00 ABG Results ABG pH 7.41 (7.35-7.45) 01/24/18 11:12 ABG pCO2 at Pt Temp 54.3 mmHg (35-45) H D 01/24/18 11:12 ABG pO2 at Pt Temp 84.5 mmHg (70-100) D 01/24/18 11:12 ABG HCO3 33.7 meq/L (22-26) H 01/24/18 11:12 ABG O2 Sat (Measured) 96.6 % (90-98.9) 01/24/18 11:12 ABG O2 Content 14.1 % vol (15-22) L 01/24/18 11:12 ABG Base Excess 8.1 meq/l (-2-2) H 01/24/18 11:12 Active Medications Aspirin (Asa -) 81 mg PO DAILY [facility] Last Admin: 01/23/18 10:41 Dose: 81 mg Atorvastatin Calcium (Lipitor -) 40 mg PO HS [facility] Last Admin: 01/23/18 21:29 Dose: 40 mg Budesonide/Formoterol Fumarate (Symbicort 160/4.5mcg -) 2 puff IH BID [facility] Last Admin: 01/23/18 22:15 Dose: 2 puff Clonazepam (Klonopin -) 0.5 mg PO AM [facility] Last Admin: 01/23/18 06:09 Dose: 0.5 mg Clonazepam (Klonopin -) 1 mg PO HS [facility] Last Admin: 01/22/18 21:03 Dose: 1 mg Docusate Sodium (Colace -) 300 mg PO HS [facility] Last Admin: 01/23/18 21:29 Dose: 300 mg Erythromycin (Erythromycin 0.5% Eye Ointment) 1 applic OD QID [facility] Last Admin: 01/23/18 21:36 Dose: Not Given Heparin Sodium (Porcine) (Heparin -) 5,000 unit SQ TID [facility] Last Admin: 01/24/18 06:51 Dose: 5,000 unit Azithromycin 500 mg/ Dextrose 250 mls @ 250 mls/hr IVPB DAILY [facility] Last Admin: 01/23/18 11:26 Dose: 250 mls/hr Ceftriaxone Sodium 1 gm/ (Dextrose) 50 mls @ 100 mls/hr IVPB DAILY [facility] Last Admin: 01/23/18 10:42 Dose: 100 mls/hr Methylprednisolone Sodium Succinate (Solu-Medrol -) 60 mg IVPB Q8H-IV [facility] Last Admin: 01/24/18 03:53 Dose: 60 mg Metoprolol Tartrate (Lopressor -) 100 mg PO BID [facility] Last Admin: 01/23/18 21:29 Dose: 100 mg Pantoprazole Sodium (Protonix -) 40 mg PO DAILY [facility] Last Admin: 01/23/18 10:42 Dose: 40 mg Tiotropium [place] (Spiriva Respimat) 2 puff IH DAILY [facility] Last Admin: 01/23/18 10:43 Dose: 2 puff Verapamil HCl (Verapamil Hcl) 120 mg PO DAILY [facility] Last Admin: 01/23/18 10:43 Dose: 120 mg IMAGING: CT Chest: No CT evidence of pulmonary embolism. Centrilobular emphysema which is probably moderate. Correlate clinically. Small opacities are noted within the right middle lobe suggestive of infiltrates. Left lower lobe linear oblique opacity is noted which could be on a postsurgical basis. This linear opacity extends to the chest wall with an associated small chest wall defect. A small amount of lung herniation is seen at that site into the extrathoracic soft tissues. Nonspecific bilateral pulmonary nodules are visualized. Correlation with 2 month follow-up CT is essential if prior CT studies are not available from a different facility for direct comparison. Small pericardial effusion. The main pulmonary diameter is mildly prominent suggestive of possible increased pulmonary arterial pressure. A nonspecific 1.5 cm right renal cortical hypodense lesion is seen which could represent a complex cyst versus neoplastic disease on the basis of the current exam. MRI evaluation is suggested , preferably without and with intravenous contrast. Note is made of several small nonspecific left and right hepatic lobe foci as discussed above. MRI evaluation is also suggested in this regard. Moderate hiatal hernia. CXR: Since 10/26/2016, again noted is the large heart with prominent right hilar markings. There may be some atelectasis at the right base. The bones and soft tissues are intact and the left lung is clear. Correlation recommended. Follow- up imaging suggested. ASSESSMENT/PLAN: The patient is a 72 yo F w/ pmhx of COPD (O2 dependent), R facial spasms, cervical cx s/p hysterectomy, osteoporosis admitted for COPD exacerbation #acute COPD exacerbation w/ R middle lobe infiltrate -d/c'd Azithromycin and Ceftriaxone -Solumedrol 60 mg IVPB Q8H -Symbicort 160, 2 puffs Q12H -Spiriva 2 puffs Q12H -cont BiPAP -Per pulm: PET scan as outpatient #acute on chronic hypoxemic/hypercapneic respiratory failure; ABG improved. CO2 now 54.3, pH 7.41. -BiPAP settings to 20/4, rate 14 -cont to monitor O2 sat -monitor on tele #Morbid obesity -trauma counsellor pt on eating habits #constipation -Colace 300 mg PO HS #R facial spasms -hold Klonopin 1 mg PO HS, 0.5 mg PO AM to avoid sedatives while patient is in current clinical state -pending Mg level, give Mag instead of Klonopin for spasms #HTN; 128/50 today. -Metoprolol Tartrate 100 mg PO BID -Verapamil HCl 120 mg PO QD #Conjunctivitis, R eye; improved. -topical erythromycin #DVT Ppx -Heparin 5000U SQ TID #FEN -no IVf indicated -monitor lytes -Regular diet dispo -cont to monitor on tele Visit type - Emergency Visit Emergency Visit: Yes ED Registration Date: 01/20/18 Care time: The patient presented to the Emergency Department on the above date and was hospitalized for further evaluation of their emergent condition. - New Patient This patient is new to me today: No - Critical Care Critical Care patient: No
--- NOTE | 2018-01-24 08:51 | PN ---
Teaching Attending Note Name of Resident: Farida Garcia ATTENDING PHYSICIAN STATEMENT I saw and evaluated the patient. I reviewed the resident's note and discussed the case with the resident. I agree with the resident's findings and plan as documented. SUBJECTIVE: Patient is better now, improving. OBJECTIVE: Vital Signs Temperature 97.4 F L 01/24/18 01:58 Pulse Rate 80 01/24/18 06:00 Respiratory Rate 20 01/24/18 06:00 Blood Pressure 128/50 01/24/18 06:00 O2 Sat by Pulse Oximetry (%) 94 L 01/24/18 06:30 CBCD WBC 6.7 K/mm3 (4.0-10.0) 01/24/18 05:30 RBC 3.82 M/mm3 (3.60-5.2) 01/24/18 05:30 Hgb 9.7 GM/dL (10.7-15.3) L 01/24/18 05:30 Hct 30.6 % (32.4-45.2) L 01/24/18 05:30 MCV 80.1 fl (80-96) 01/24/18 05:30 MCHC 31.6 g/dl (32.0-36.0) L 01/24/18 05:30 RDW 16.8 % (11.6-15.6) H 01/24/18 05:30 Plt Count 221 K/MM3 (134-434) D 01/24/18 05:30 MPV 7.5 fl (7.5-11.1) 01/24/18 05:30 CMP Sodium 147 mmol/L (136-145) H 01/24/18 05:30 Potassium 4.6 mmol/L (3.5-5.1) 01/24/18 05:30 Chloride 104 mmol/L (98-107) 01/24/18 05:30 Carbon Dioxide 37 mmol/L (21-32) H 01/24/18 05:30 Anion Gap 6 (8-16) L 01/24/18 05:30 BUN 27 mg/dL (7-18) H 01/24/18 05:30 Creatinine 0.9 mg/dL (0.55-1.02) 01/24/18 05:30 Creat Clearance w eGFR > 60 (>60) 01/24/18 05:30 Random Glucose 150 mg/dL (74-106) H 01/24/18 05:30 Calcium 7.5 mg/dL (8.5-10.1) L 01/24/18 05:30 Total Bilirubin 0.2 mg/dL (0.2-1.0) 01/24/18 05:30 AST 37 U/L (15-37) 01/24/18 05:30 ALT 33 U/L (12-78) 01/24/18 05:30 Alkaline Phosphatase 94 U/L (45-117) D 01/24/18 05:30 Total Protein 5.3 g/dl (6.4-8.2) L 01/24/18 05:30 Albumin 2.7 g/dl (3.4-5.0) L 01/24/18 05:30 CARDIAC ENZYMES Creatine Kinase 40 IU/L (26-192) 01/20/18 15:40 Troponin I < 0.02 ng/ml (0.00-0.05) 01/20/18 15:40 Current Medications Generic Name Dose Route Start Last Admin Trade Name Grahamq PRN Reason Stop Dose Admin Aspirin 81 mg 01/22/18 14:45 01/23/18 10:41 Asa - PO 81 mg DAILY FABIOLA Administration Atorvastatin Calcium 40 mg 01/22/18 22:00 01/23/18 21:29 Lipitor - PO 40 mg HS FABIOLA Administration Budesonide/Formoterol Fumarate 2 puff 01/23/18 12:30 01/23/18 22:15 Symbicort 160/4.5mcg - IH 2 puff BID FABIOLA Administration Clonazepam 0.5 mg 01/23/18 07:00 01/23/18 06:09 Klonopin - PO 0.5 mg AM FABIOLA Administration Clonazepam 1 mg 01/22/18 22:00 01/22/18 21:03 Klonopin - PO 1 mg HS FABIOLA Administration Docusate Sodium 300 mg 01/22/18 22:00 01/23/18 21:29 Colace - PO 300 mg HS FABIOLA Administration Erythromycin 1 applic 01/20/18 23:15 01/23/18 21:36 Erythromycin 0.5% Eye Ointment OD Not Given QID FABIOLA Heparin Sodium (Porcine) 5,000 unit 01/21/18 14:00 01/24/18 06:51 Heparin - SQ 5,000 unit TID FABIOLA Administration Azithromycin 500 mg/ Dextrose 250 mls @ 250 mls/hr 01/21/18 10:00 01/23/18 11 :26 IVPB 250 mls/hr DAILY FABIOLA Administration Ceftriaxone Sodium 1 gm/ 50 mls @ 100 mls/hr 01/21/18 10:00 01/23/18 10:42 Dextrose IVPB 100 mls/hr DAILY FABIOLA Administration Methylprednisolone Sodium Succinate 60 mg 01/23/18 12:29 01/24/18 03:53 Solu-Medrol - IVPB 60 mg Q8H-IV FABIOLA Administration Metoprolol Tartrate 100 mg 01/22/18 22:00 01/23/18 21:29 Lopressor - PO 100 mg BID FABIOLA Administration Pantoprazole Sodium 40 mg 01/22/18 14:45 01/23/18 10:42 Protonix - PO 40 mg DAILY FABIOLA Administration Tiotropium [place] 2 puff 01/21/18 10:00 01/23/18 10:43 Spiriva Respimat IH 2 puff DAILY FABIOLA Administration Verapamil HCl 120 mg 01/22/18 14:45 01/23/18 10:43 Verapamil Hcl PO 120 mg DAILY FABIOLA Administration Home Medications Medication Instructions Recorded Acetaminophen [Mapap] 650 mg PO PRN 10/26/16 Albuterol 0.083% Nebulizer Opal 1 neb NEB Q6H PRN 10/26/16 [Ventolin 0.083% Nebulizer Soln -] Aspirin [ASA -] 81 mg PO DAILY 10/26/16 Citalopram Hydrobromide 20 mg PO DAILY 10/26/16 [Citalopram HBr] Clonazepam [Klonopin] 1 mg PO HS 10/26/16 Denosumab [Prolia] 60 mg SQ ASDIR 10/26/16 Docusate Sodium [Colace -] 300 mg PO HS 10/26/16 Metoprolol Tartrate [Lopressor] 100 mg PO BID 10/26/16 Omeprazole 40 mg PO DAILY 10/26/16 Umeclidinium Brm/Vilanterol Tr 1 each IH DAILY 10/26/16 [Anoro Ellipta 62.5-25 Mcg INH] Verapamil HCl 120 mg PO DAILY 10/26/16 clonazePAM [Klonopin -] 0.5 mg PO AM 10/26/16 predniSONE [Deltasone -] 7.5 mg PO DAILY 10/26/16 Albuterol 2.5/Ipratropium 0.5 1 amp NEB Q6H 01/20/18 [Duoneb -] Albuterol Sulfate [Proair Hfa] 2 puff IH Q4H 01/20/18 Atorvastatin Ca [Lipitor] 40 mg PO HS 01/20/18 Cholecalciferol (Vitamin D3) 1,000 unit PO DAILY 01/20/18 [Vitamin D3] chest:decreased air entery BL rest of pe per resident Laboratory Tests 01/23/18 01/24/18 23:00 11:12 ABG pH 7.32 L 7.41 ABG pCO2 at Pt Temp 71.8 H* 54.3 H D ABG pO2 at Pt Temp 68.0 L 84.5 D ABG HCO3 35.7 H 33.7 H ABG O2 Sat (Measured) 91.9 96.6 ABG O2 Content 12.5 L 14.1 L ABG Base Excess 8.2 H 8.1 H Chace Test Positive ASSESSMENT AND PLAN: Patient is a 72yo female with pmhx of COPD (O2 dependent), R facial spasms (if does not take Klonopin) , cervical cx s/p hysterectomy, osteoporosis presented with worsening shortness of breath. # Acute COPD exacerbation with RML infiltrate : placed patient on bipap, patient is having difficulty with breathing. pulmonary consult appreciated. No PE on CTPA. continue IV Rocephin, completed (zithromycin), spiriva, symbicort. repeat ABG improved as above. # Anxiety disorder: Klonopin is on hold since patient having difficulty with breathing. # Obesity: discussed weight loss. Consult supply officer. DVT prophylaxis - Heparin 5000u sq tid. Advance directives - Full code
[2018-01-24] MEDS ORDERED: PT OWN MED DRAWER 7, Y5N ONE ×4 (09:31→21:31)
[2018-01-24] MEDS ORDERED: cefTRIAXone SODIUM 1 GM VIAL ONE (09:32)
[2018-01-24] MEDS ORDERED: DEXTROSE 5%-WATER - 50 ML IVPB ONE (09:32)
[2018-01-24] MEDS: CEFTRIAXONE 1 GM in DEXTROSE 5%-WATER - 50 ML IVPB SCH (09:35)
[2018-01-24] MEDS: BUDESONIDE/FORMETEROL FUMARATE 160/4.5 mcg INHALER IH SCH ×2 (09:36→21:37)
[2018-01-24] MEDS: ERYTHROMYCIN 0.5% OPHTHALMIC OINTMENT 3.5 GM TUBE OD SCH ×4 (09:36→21:36)
[2018-01-24] MEDS: TIOTROPIUM BROMIDE 2.5 MCG (SPIRIVA) RESPIMAT INHALER IH SCH (09:36)
[2018-01-24] MEDS: METOPROLOL TARTRATE 50 MG TABLET (FP) PO SCH ×2 (09:36→21:35)
[2018-01-24] MEDS: VERAPAMIL HCL 120 MG TABLET PO SCH (09:36)
[2018-01-24] MEDS: ASPIRIN 81 MG CHEWABLE TABLETS PO SCH (09:36)
[2018-01-24] MEDS: PANTOPRAZOLE 40 MG TABLET (FP) PO SCH (09:36)
[2018-01-24] MEDS: AZITHROMYCIN IVPB 500 MG in DEXTROSE 5%-WATER - 250 ML IVPB SCH (09:37)
--- NOTE | 2018-01-24 10:05 | PN ---
Progress Note, Physician History of Present Illness: PULMONARY ALERT,FEELING BETTER,ON BIPAP - Current Medication List Current Medications: Active Medications Aspirin (Asa -) 81 mg PO DAILY [facility] Last Admin: 01/24/18 09:36 Dose: 81 mg Atorvastatin Calcium (Lipitor -) 40 mg PO HS [facility] Last Admin: 01/23/18 21:29 Dose: 40 mg Budesonide/Formoterol Fumarate (Symbicort 160/4.5mcg -) 2 puff IH BID [facility] Last Admin: 01/24/18 09:36 Dose: 2 puff Clonazepam (Klonopin -) 0.5 mg PO AM [facility] Last Admin: 01/23/18 06:09 Dose: 0.5 mg Clonazepam (Klonopin -) 1 mg PO HS [facility] Last Admin: 01/22/18 21:03 Dose: 1 mg Docusate Sodium (Colace -) 300 mg PO HS [facility] Last Admin: 01/23/18 21:29 Dose: 300 mg Erythromycin (Erythromycin 0.5% Eye Ointment) 1 applic OD QID [facility] Last Admin: 01/24/18 09:36 Dose: Not Given Heparin Sodium (Porcine) (Heparin -) 5,000 unit SQ TID [facility] Last Admin: 01/24/18 06:51 Dose: 5,000 unit Azithromycin 500 mg/ Dextrose 250 mls @ 250 mls/hr IVPB DAILY [facility] Last Admin: 01/24/18 09:37 Dose: Not Given Ceftriaxone Sodium 1 gm/ (Dextrose) 50 mls @ 100 mls/hr IVPB DAILY [facility] Last Admin: 01/24/18 09:35 Dose: 100 mls/hr Methylprednisolone Sodium Succinate (Solu-Medrol -) 60 mg IVPB Q6H-IV [facility] Metoprolol Tartrate (Lopressor -) 100 mg PO BID [facility] Last Admin: 01/24/18 09:36 Dose: 100 mg Pantoprazole Sodium (Protonix -) 40 mg PO DAILY [facility] Last Admin: 01/24/18 09:36 Dose: 40 mg Tiotropium [place] (Spiriva Respimat) 2 puff IH DAILY [facility] Last Admin: 01/24/18 09:36 Dose: Not Given Verapamil HCl (Verapamil Hcl) 120 mg PO DAILY [facility] Last Admin: 01/24/18 09:36 Dose: 120 mg - Objective Vital Signs: Vital Signs Temperature 97.4 F L 01/24/18 01:58 Pulse Rate 80 01/24/18 06:00 Respiratory Rate 20 01/24/18 06:00 Blood Pressure 128/50 01/24/18 06:00 O2 Sat by Pulse Oximetry (%) 94 L 01/24/18 06:30 Constitutional: Yes: Well Nourished, Calm Eyes: Yes: WNL HENT: Yes: WNL Neck: Yes: WNL Cardiovascular: Yes: Regular Rate and Rhythm, S1, S2 Respiratory: Yes: Rhonchi (SCATTERED CARLY RHONCHI) Gastrointestinal: Yes: Normal Bowel Sounds, Soft Extremities: Yes: WNL Edema: No Labs: CBC, BMP 01/24/18 05:30 01/24/18 05:30 Laboratory Tests 01/23/18 23:00 ABG pH 7.32 L ABG pCO2 at Pt Temp 71.8 H* ABG pO2 at Pt Temp 68.0 L ABG HCO3 35.7 H ABG O2 Sat (Measured) 91.9 Oxygen Flow Rate 35% Vent Rate 20 Pressure Support Vent 20/4 Problem List - Problems (1) Acute on chronic respiratory failure with hypoxia and hypercapnia Code(s): J96.21 - ACUTE AND CHRONIC RESPIRATORY FAILURE WITH HYPOXIA; J96.22 - ACUTE AND CHRONIC RESPIRATORY FAILURE WITH HYPERCAPNIA (2) Emphysema of lung Code(s): J43.9 - EMPHYSEMA, UNSPECIFIED (3) COPD exacerbation Code(s): J44.1 - CHRONIC OBSTRUCTIVE PULMONARY DISEASE W (ACUTE) EXACERBATION (4) Pneumonia Code(s): J18.9 - PNEUMONIA, UNSPECIFIED ORGANISM (5) Lung nodule Code(s): R91.1 - SOLITARY PULMONARY NODULE Assessment/Plan IMP ACUTE ON CHRONIC HYPOXEMIC/HYPERCAPNEIC RESPIRATORY FAILURE ADVANCED COPD O2 DEPENDENT RML INFILTRATE RUL PULMONARY NODULE ? MALIGNANT H/O CERVICAL CA S/P HYSTERECTOMY PLAN O2 TO MAINTAIN O2 SAT 90% OR GREATER NIPPV NEEDED INHALED BRONCHODILATORS MEDROL ABX F/U ABGS DVT PROPHYLAXIS PET CT OUTPATIENT DR HAMMOND Problem List - Problems (1) Acute on chronic respiratory failure with hypoxia and hypercapnia Code(s): J96.21 - ACUTE AND CHRONIC RESPIRATORY FAILURE WITH HYPOXIA; J96.22 - ACUTE AND CHRONIC RESPIRATORY FAILURE WITH HYPERCAPNIA (2) Emphysema of lung Code(s): J43.9 - EMPHYSEMA, UNSPECIFIED (3) COPD exacerbation Code(s): J44.1 - CHRONIC OBSTRUCTIVE PULMONARY DISEASE W (ACUTE) EXACERBATION (4) Pneumonia Code(s): J18.9 - PNEUMONIA, UNSPECIFIED ORGANISM (5) Lung nodule Code(s): R91.1 - SOLITARY PULMONARY NODULE
[2018-01-24 13:12] LABS: ARTERIAL BLD GAS O2 SATURATION 96.6 % (90-98.9); ARTERIAL BLOOD GAS BASE EXCESS 8.1 meq/l (-2-2); ARTERIAL BLOOD GAS PCO2 54.3 mmHg (35-45); ARTERIAL BLOOD GAS PO2 84.5 mmHg (70-100); ARTERIAL BLOOD GAS pH 7.41 (7.35-7.45)
[2018-01-24] MEDS ORDERED: MAGNESIUM OXIDE 400 MG TABLET (FP) PO ONE (13:45)
[2018-01-24] MEDS: methylPREDNISolone NA SUCC 125 MG/2 ML VIAL IVPB SCH ×2 (14:23→21:37)
[2018-01-24] MEDS: ATORVASTATIN CA 40 MG TABLET (FP) PO SCH (21:35)
[2018-01-24] MEDS: clonazePAM 0.5 MG TABLET PO SCH (21:35)
[2018-01-24] MEDS: DOCUSATE SODIUM 100 MG CAPSULE (FP) PO SCH (21:36)
[2018-01-25] MEDS: methylPREDNISolone NA SUCC 125 MG/2 ML VIAL IVPB SCH ×2 (03:54→09:02)
[2018-01-25] MEDS: HEPARIN NA (PORCINE) 5,000 UNITS/ML 1ML VIAL SQ SCH ×3 (05:46→21:48)
[2018-01-25 06:26] LABS: BASO % 0.2 % (0-2.0); HEMATOCRIT 31.7 % (32.4-45.2); HEMOGLOBIN 9.9 GM/dL (10.7-15.3); LYMPH % 11.2 % (8-40); MCH 25.1 pg (25.7-33.7); MCHC 31.3 g/dl (32.0-36.0); MEAN CELL VOLUME 80.4 fl (80-96); MEAN PLT VOLUME 7.2 fl (7.5-11.1); MONO % 5.8 % (3.8-10.2); NEUT % 82.8 % (42.8-82.8); PLATELET COUNT 201 K/MM3 (134-434); RBC 3.94 M/mm3 (3.60-5.2); RDW 16.4 % (11.6-15.6); WHITE BLOOD COUNT 5.3 K/mm3 (4.0-10.0)
[2018-01-25 07:00] LABS: ALBUMIN 2.7 g/dl (3.4-5.0); ANION GAP 5 MMOL/L (8-16); BILIRUBIN,TOTAL 0.3 mg/dL (0.2-1.0); BLOOD UREA NITROGEN 28 mg/dL (7-18); CALCIUM 7.7 mg/dL (8.5-10.1); CHLORIDE 102 mmol/L (98-107); CO2 38 mmol/L (21-32); CREATININE 0.9 mg/dL (0.55-1.02); GLUCOSE,RANDOM 221 mg/dL (74-106); MAGNESIUM 2.5 mg/dL (1.8-2.4); POTASSIUM 4.6 mmol/L (3.5-5.1); SGOT/AST 23 U/L (15-37); SODIUM 145 mmol/L (136-145)
[2018-01-25] MEDS: clonazePAM 0.5 MG TABLET PO SCH (07:07)
[2018-01-25 07:30] LABS: SGPT/ALT 35 U/L (12-78)
[2018-01-25] MEDS ORDERED: cefTRIAXone SODIUM 1 GM VIAL ONE (08:47)
[2018-01-25] MEDS ORDERED: DEXTROSE 5%-WATER - 50 ML IVPB ONE (08:47)
[2018-01-25 08:49] LABS: ALK PHOS 89 U/L (45-117)
[2018-01-25] MEDS: TIOTROPIUM BROMIDE 2.5 MCG (SPIRIVA) RESPIMAT INHALER IH SCH (09:03)
[2018-01-25] MEDS: BUDESONIDE/FORMETEROL FUMARATE 160/4.5 mcg INHALER IH SCH ×2 (09:03→21:53)
[2018-01-25] MEDS: PANTOPRAZOLE 40 MG TABLET (FP) PO SCH (09:06)
[2018-01-25] MEDS: METOPROLOL TARTRATE 50 MG TABLET (FP) PO SCH ×2 (09:06→21:48)
[2018-01-25] MEDS: ASPIRIN 81 MG CHEWABLE TABLETS PO SCH (09:06)
[2018-01-25] MEDS: VERAPAMIL HCL 120 MG TABLET PO SCH (09:06)
--- NOTE | 2018-01-25 09:55 | PN ---
Physical Exam: SUBJECTIVE: Patient seen and examined at bedside. Complains of limited sleep. Shortness of breath persists unchanged. Denies fever, headache, dizziness, nausea/vomiting, urinary/bowel symptoms. OBJECTIVE: Vital Signs Period Temp Pulse Resp BP Sys/Cárdenas Pulse Ox Last 24 Hr 97.0 F-97.9 F 64-87 20-20 112-144/50-81 94-100 GENERAL: The patient is awake, alert, and fully oriented, in no acute distress. NECK: Trachea midline, full range of motion, supple. LUNGS: Breath sounds equal, decreased air entry b/l, scant inspiratory wheezes, no accessory muscle use. On BiPAP. HEART: Regular rate and rhythm, S1, S2 without murmur, rub or gallop. ABDOMEN: Soft, nontender, nondistended, normoactive bowel sounds, no guarding, no rebound, no hepatosplenomegaly, no masses. EXTREMITIES: 2+ pulses, warm, well-perfused, no edema. NEUROLOGICAL: Cranial nerves II through X grossly intact. Normal speech, gait not observed. SKIN: Warm, dry, normal turgor, no rashes or lesions noted Laboratory Results - last 24 hr 01/24/18 01/24/18 01/25/18 11:12 13:00 05:30 WBC RBC Hgb Hct MCV MCH MCHC RDW Plt Count MPV Absolute Neuts (auto) Neutrophils % Lymphocytes % Monocytes % Eosinophils % Basophils % Nucleated RBC % Puncture Site Right radial ABG pH 7.41 ABG pCO2 at Pt Temp 54.3 H D ABG pO2 at Pt Temp 84.5 D ABG HCO3 33.7 H ABG O2 Sat (Measured) 96.6 ABG O2 Content 14.1 L ABG Base Excess 8.1 H Chace Test No Result Required. Oxygen Flow Rate N/c Sodium 145 Potassium 4.6 Chloride 102 Carbon Dioxide 38 H Anion Gap 5 L BUN 28 H Creatinine 0.9 Creat Clearance w eGFR > 60 Random Glucose 221 H Calcium 7.7 L Magnesium 2.5 H 2.5 H Total Bilirubin 0.3 AST 23 ALT 35 Alkaline Phosphatase 89 Total Protein 5.0 L Albumin 2.7 L 01/25/18 05:30 WBC 5.3 RBC 3.94 Hgb 9.9 L Hct 31.7 L MCV 80.4 MCH 25.1 L MCHC 31.3 L RDW 16.4 H Plt Count 201 MPV 7.2 L Absolute Neuts (auto) 4.4 Neutrophils % 82.8 Lymphocytes % 11.2 D Monocytes % 5.8 Eosinophils % 0.0 Basophils % 0.2 Nucleated RBC % 0 Puncture Site ABG pH ABG pCO2 at Pt Temp ABG pO2 at Pt Temp ABG HCO3 ABG O2 Sat (Measured) ABG O2 Content ABG Base Excess Chace Test Oxygen Flow Rate Sodium Potassium Chloride Carbon Dioxide Anion Gap BUN Creatinine Creat Clearance w eGFR Random Glucose Calcium Magnesium Total Bilirubin AST ALT Alkaline Phosphatase Total Protein Albumin Active Medications Generic Name Dose Route Start Last Admin Trade Name Freq PRN Reason Stop Dose Admin Aspirin 81 mg 01/22/18 14:45 01/25/18 09:06 Asa - PO 81 mg DAILY [facility] Administration Atorvastatin Calcium 40 mg 01/22/18 22:00 01/24/18 21:35 Lipitor - PO 40 mg HS [facility] Administration Budesonide/Formoterol Fumarate 2 puff 01/23/18 12:30 01/25/18 09:03 Symbicort 160/4.5mcg - IH 2 puff BID [facility] Administration Clonazepam 0.5 mg 01/23/18 07:00 01/25/18 07:07 Klonopin - PO Not Given AM [facility] Clonazepam 1 mg 01/22/18 22:00 01/24/18 21:35 Klonopin - PO 1 mg HS [facility] Administration Docusate Sodium 300 mg 01/22/18 22:00 01/24/18 21:36 Colace - PO 300 mg HS [facility] Administration Erythromycin 1 applic 01/20/18 23:15 01/24/18 21:36 Erythromycin 0.5% Eye Ointment OD 1 applic QID [facility] Administration Heparin Sodium (Porcine) 5,000 unit 01/21/18 14:00 01/25/18 05:46 Heparin - SQ 5,000 unit TID [facility] Administration Ceftriaxone Sodium 1 gm/ 50 mls @ 100 mls/hr 01/25/18 10:00 Dextrose IVPB DAILY [facility] Methylprednisolone Sodium Succinate 60 mg 01/24/18 15:00 01/25/18 09:02 Solu-Medrol - IVPB 60 mg Q6H-IV [facility] Administration Metoprolol Tartrate 100 mg 01/22/18 22:00 01/25/18 09:06 Lopressor - PO 100 mg BID [facility] Administration Pantoprazole Sodium 40 mg 01/22/18 14:45 01/25/18 09:06 Protonix - PO 40 mg DAILY [facility] Administration Tiotropium [place] 2 puff 01/21/18 10:00 01/25/18 09:03 Spiriva Respimat IH 2 puff DAILY [facility] Administration Verapamil HCl 120 mg 01/22/18 14:45 01/25/18 09:06 Verapamil Hcl PO 120 mg DAILY [facility] Administration ASSESSMENT/PLAN: The patient is a 72 yo F w/ pmhx of COPD (O2 dependent), R facial spasms, cervical cx s/p hysterectomy, osteoporosis admitted for COPD exacerbation #acute COPD exacerbation w/ R middle lobe infiltrate -cont Ceftriaxone 1gm QD IVPB -Solumedrol taper per Dr. Darling: 60 mg IVPB Q8H --> 40 q8 -Symbicort 160, 2 puffs Q12H -Spiriva 2 puffs Q12H -no respiratory distress off BiPAP -NIPPV as needed -Per pulm: PET scan as outpatient -PT consult ordered -plan for d/c to SNF for pulm rehab #acute on chronic hypoxemic/hypercapneic respiratory failure; -yesterday ABG improved to CO2 54.3, pH 7.41 -stat repeat ABG ordered, awaiting result -no respiratory distress off BiPAP -NIPPV as needed -cont to monitor O2 sat, maintain >90% -monitor on tele #Morbid obesity -prenatal genetic counselor pt on eating habits #constipation -Colace 300 mg PO HS #R facial spasms -hold Klonopin 1 mg PO HS, 0.5 mg PO AM to avoid sedatives while patient is in current clinical state -pending Mg level, give Mag instead of Klonopin for spasms #HTN; 123/60 today. -Metoprolol Tartrate 100 mg PO BID -Verapamil HCl 120 mg PO QD #Conjunctivitis, R eye; improved. -topical erythromycin #DVT Ppx -Heparin 5000U SQ TID #FEN -no IVf indicated -monitor lytes -Regular diet dispo -cont to monitor on tele Visit type - Emergency Visit Emergency Visit: No - New Patient This patient is new to me today: Yes Date on this admission: 01/25/18 - Critical Care Critical Care patient: No
[2018-01-25] MEDS ORDERED: CEFTRIAXONE 1 GM in DEXTROSE 5%-WATER - 50 ML IVPB SCH (10:00)
[2018-01-25] MEDS: ERYTHROMYCIN 0.5% OPHTHALMIC OINTMENT 3.5 GM TUBE OD SCH ×4 (10:47→21:52)
[2018-01-25] MEDS ORDERED: ALBUTEROL SO4 2.5/IPRATROPIUM 0.5 INH SOL 3 ML VIAL.NEB. NEB PRN (11:29)
--- NOTE | 2018-01-25 11:32 | PN ---
Progress Note, Physician History of Present Illness: PULMONARY ALERT,FEELING BETTER,-RESP DISTRESS OFF BIPAP - Current Medication List Current Medications: Active Medications Aspirin (Asa -) 81 mg PO DAILY [facility] Last Admin: 01/25/18 09:06 Dose: 81 mg Atorvastatin Calcium (Lipitor -) 40 mg PO HS [facility] Last Admin: 01/24/18 21:35 Dose: 40 mg Budesonide/Formoterol Fumarate (Symbicort 160/4.5mcg -) 2 puff IH BID [facility] Last Admin: 01/25/18 09:03 Dose: 2 puff Clonazepam (Klonopin -) 0.5 mg PO AM [facility] Last Admin: 01/25/18 07:07 Dose: Not Given Clonazepam (Klonopin -) 1 mg PO HS [facility] Last Admin: 01/24/18 21:35 Dose: 1 mg Docusate Sodium (Colace -) 300 mg PO HS [facility] Last Admin: 01/24/18 21:36 Dose: 300 mg Erythromycin (Erythromycin 0.5% Eye Ointment) 1 applic OD QID [facility] Last Admin: 01/24/18 21:36 Dose: 1 applic Heparin Sodium (Porcine) (Heparin -) 5,000 unit SQ TID [facility] Last Admin: 01/25/18 05:46 Dose: 5,000 unit Ceftriaxone Sodium 1 gm/ (Dextrose) 50 mls @ 100 mls/hr IVPB DAILY [facility] Methylprednisolone Sodium Succinate (Solu-Medrol -) 60 mg IVPB Q6H-IV [facility] Last Admin: 01/25/18 09:02 Dose: 60 mg Metoprolol Tartrate (Lopressor -) 100 mg PO BID [facility] Last Admin: 01/25/18 09:06 Dose: 100 mg Pantoprazole Sodium (Protonix -) 40 mg PO DAILY [facility] Last Admin: 01/25/18 09:06 Dose: 40 mg Tiotropium [place] (Spiriva Respimat) 2 puff IH DAILY [facility] Last Admin: 01/25/18 09:03 Dose: 2 puff Verapamil HCl (Verapamil Hcl) 120 mg PO DAILY [facility] Last Admin: 01/25/18 09:06 Dose: 120 mg - Objective Vital Signs: Vital Signs Temperature 97.6 F 01/25/18 05:44 Pulse Rate 64 01/25/18 05:44 Respiratory Rate 20 01/25/18 10:00 Blood Pressure 123/60 01/25/18 05:44 O2 Sat by Pulse Oximetry (%) 96 01/25/18 10:00 Constitutional: Yes: Well Nourished, Calm Eyes: Yes: WNL HENT: Yes: WNL Neck: Yes: WNL Cardiovascular: Yes: Regular Rate and Rhythm, S1, S2 Respiratory: Yes: Diminished Gastrointestinal: Yes: Normal Bowel Sounds, Soft Extremities: Yes: WNL Edema: No Labs: CBC, BMP 01/25/18 05:30 01/25/18 05:30 Laboratory Tests 01/24/18 11:12 Puncture Site Right radial ABG pH 7.41 ABG pCO2 at Pt Temp 54.3 H D ABG pO2 at Pt Temp 84.5 D ABG HCO3 33.7 H ABG O2 Sat (Measured) 96.6 Oxygen Flow Rate N/c Problem List - Problems (1) Acute on chronic respiratory failure with hypoxia and hypercapnia Code(s): J96.21 - ACUTE AND CHRONIC RESPIRATORY FAILURE WITH HYPOXIA; J96.22 - ACUTE AND CHRONIC RESPIRATORY FAILURE WITH HYPERCAPNIA (2) Emphysema of lung Code(s): J43.9 - EMPHYSEMA, UNSPECIFIED (3) COPD exacerbation Code(s): J44.1 - CHRONIC OBSTRUCTIVE PULMONARY DISEASE W (ACUTE) EXACERBATION (4) Pneumonia Code(s): J18.9 - PNEUMONIA, UNSPECIFIED ORGANISM (5) Lung nodule Code(s): R91.1 - SOLITARY PULMONARY NODULE Assessment/Plan IMP ACUTE ON CHRONIC HYPOXEMIC/HYPERCAPNEIC RESPIRATORY FAILURE IMPROVED ADVANCED COPD O2 DEPENDENT RML INFILTRATE RUL PULMONARY NODULE ? MALIGNANT H/O CERVICAL CA S/P HYSTERECTOMY PLAN O2 TO MAINTAIN O2 SAT 90% OR GREATER NIPPV NEEDED INHALED BRONCHODILATORS MEDROL TAPER ABX DVT PROPHYLAXIS PET CT OUTPATIENT PULMONARY REHAB POST DISCHARGE TRILOGY DEVICE AT HOME DR HAMMOND Problem List - Problems (1) Acute on chronic respiratory failure with hypoxia and hypercapnia Code(s): J96.21 - ACUTE AND CHRONIC RESPIRATORY FAILURE WITH HYPOXIA; J96.22 - ACUTE AND CHRONIC RESPIRATORY FAILURE WITH HYPERCAPNIA (2) Emphysema of lung Code(s): J43.9 - EMPHYSEMA, UNSPECIFIED (3) COPD exacerbation Code(s): J44.1 - CHRONIC OBSTRUCTIVE PULMONARY DISEASE W (ACUTE) EXACERBATION (4) Pneumonia Code(s): J18.9 - PNEUMONIA, UNSPECIFIED ORGANISM (5) Lung nodule Code(s): R91.1 - SOLITARY PULMONARY NODULE
[2018-01-25] MEDS: ALBUTEROL SO4 2.5/IPRATROPIUM 0.5 INH SOL 3 ML VIAL.NEB. NEB SCH ×3 (13:50→21:37)
[2018-01-25 14:43] LABS: ARTERIAL BLD GAS O2 SATURATION 96.8 % (90-98.9); ARTERIAL BLOOD GAS BASE EXCESS 6.1 meq/l (-2-2); ARTERIAL BLOOD GAS PCO2 54.5 mmHg (35-45); ARTERIAL BLOOD GAS PO2 92.1 mmHg (70-100); ARTERIAL BLOOD GAS pH 7.38 (7.35-7.45)
[2018-01-25 14:49] LABS: ALLENS TEST POSITIVE
[2018-01-25] MEDS: methylPREDNISolone NA SUCC 40 MG/1 ML VIAL IVPB SCH (17:47)
--- NOTE | 2018-01-25 19:47 | PN ---
Teaching Attending Note Name of Resident: Ben Gonzales ATTENDING PHYSICIAN STATEMENT I saw and evaluated the patient. I reviewed the resident's note and discussed the case with the resident. I agree with the resident's findings and plan as documented. SUBJECTIVE: No fever or chills, feels better . cough with green sputum, less in quantity OBJECTIVE: NAD Cv : RRR Lungs: acceptable air entry, no wheezes , decreased breath sounds at bases EXT: No edema ASSESSMENT AND PLAN: 72 y/o lady with h/o COPD , and cervical sx who presented with SOB and was found to have acute COPD exacerbation and PNA 1- Acute COPD exacerbation - resume NEbs - hold spiriva while on Duo-Nebs - steroids decreased to 40 q 8h today - BIPAP at night - cont O2 2- PNA: day 7 of Abx . No leukocytosis or fever . dc ABx 3- b/l lung nodules on Ctscan : f/u in [address] 4- LIver nodules on CT: f/u as out pt 5- dispo : HLOC
[2018-01-25] MEDS: DOCUSATE SODIUM 100 MG CAPSULE (FP) PO SCH (21:48)
[2018-01-25] MEDS: ATORVASTATIN CA 40 MG TABLET (FP) PO SCH (21:48)
[2018-01-26] MEDS ORDERED: PT OWN MED DRAWER 7, Y5N ONE (00:35)
[2018-01-26] MEDS: methylPREDNISolone NA SUCC 40 MG/1 ML VIAL IVPB SCH ×2 (02:56→09:07)
[2018-01-26] MEDS: HEPARIN NA (PORCINE) 5,000 UNITS/ML 1ML VIAL SQ SCH ×3 (05:56→22:25)
[2018-01-26 07:18] LABS: BASO % 0.1 % (0-2.0); LYMPH % 9.4 % (8-40); MCH 25.3 pg (25.7-33.7); MCHC 32.2 g/dl (32.0-36.0); MEAN CELL VOLUME 78.5 fl (80-96); MEAN PLT VOLUME 7.3 fl (7.5-11.1); MONO % 7.4 % (3.8-10.2); NEUT % 83.1 % (42.8-82.8); PLATELET COUNT 213 K/MM3 (134-434); RBC 3.94 M/mm3 (3.60-5.2); RDW 16.8 % (11.6-15.6); WHITE BLOOD COUNT 7.9 K/mm3 (4.0-10.0)
[2018-01-26 07:35] LABS: ANION GAP 4 MMOL/L (8-16); BLOOD UREA NITROGEN 32 mg/dL (7-18); CALCIUM 8.3 mg/dL (8.5-10.1); CHLORIDE 101 mmol/L (98-107); CO2 39 mmol/L (21-32); GLUCOSE,RANDOM 170 mg/dL (74-106); POTASSIUM 4.6 mmol/L (3.5-5.1); SODIUM 144 mmol/L (136-145)
[2018-01-26] MEDS: ALBUTEROL SO4 2.5/IPRATROPIUM 0.5 INH SOL 3 ML VIAL.NEB. NEB SCH ×4 (09:02→20:28)
[2018-01-26] MEDS: METOPROLOL TARTRATE 50 MG TABLET (FP) PO SCH ×2 (09:07→22:11)
[2018-01-26] MEDS: VERAPAMIL HCL 120 MG TABLET PO SCH (09:08)
[2018-01-26] MEDS: ASPIRIN 81 MG CHEWABLE TABLETS PO SCH (09:08)
[2018-01-26] MEDS: PANTOPRAZOLE 40 MG TABLET (FP) PO SCH (09:08)
[2018-01-26] MEDS: ERYTHROMYCIN 0.5% OPHTHALMIC OINTMENT 3.5 GM TUBE OD SCH ×3 (10:17→22:26)
--- NOTE | 2018-01-26 10:23 | PN ---
Progress Note, Physician History of Present Illness: PULMONARY ALERT,FEELING BETTER,LESS DYSPNEIC,ON NASAL O2., USING BIPAP AT NIGHT - Current Medication List Current Medications: Active Medications Albuterol/Ipratropium (Duoneb -) 1 amp NEB RQID [facility] Last Admin: 01/26/18 09:02 Dose: 1 amp Albuterol/Ipratropium (Duoneb -) 1 amp NEB Q4H PRN PRN Reason: SHORTNESS OF BREATH Aspirin (Asa -) 81 mg PO DAILY [facility] Last Admin: 01/26/18 09:08 Dose: 81 mg Atorvastatin Calcium (Lipitor -) 40 mg PO HS [facility] Last Admin: 01/25/18 21:48 Dose: 40 mg Budesonide/Formoterol Fumarate (Symbicort 160/4.5mcg -) 2 puff IH BID [facility] Last Admin: 01/25/18 21:53 Dose: 2 puff Clonazepam (Klonopin -) 0.5 mg PO AM [facility] Last Admin: 01/25/18 07:07 Dose: Not Given Clonazepam (Klonopin -) 1 mg PO HS [facility] Last Admin: 01/24/18 21:35 Dose: 1 mg Docusate Sodium (Colace -) 300 mg PO HS [facility] Last Admin: 01/25/18 21:48 Dose: 300 mg Erythromycin (Erythromycin 0.5% Eye Ointment) 1 applic OD QID [facility] Last Admin: 01/25/18 21:52 Dose: 1 applic Heparin Sodium (Porcine) (Heparin -) 5,000 unit SQ TID [facility] Last Admin: 01/26/18 05:56 Dose: 5,000 unit Methylprednisolone Sodium Succinate (Solu-Medrol -) 40 mg IVPB Q8H-IV [facility] Last Admin: 01/26/18 09:07 Dose: 40 mg Metoprolol Tartrate (Lopressor -) 100 mg PO BID [facility] Last Admin: 01/26/18 09:07 Dose: 100 mg Pantoprazole Sodium (Protonix -) 40 mg PO DAILY [facility] Last Admin: 01/26/18 09:08 Dose: 40 mg Verapamil HCl (Verapamil Hcl) 120 mg PO DAILY [facility] Last Admin: 01/26/18 09:08 Dose: 120 mg - Objective Vital Signs: Vital Signs Temperature 94.4 F L 01/26/18 02:00 Pulse Rate 57 L 01/26/18 06:00 Respiratory Rate 20 01/26/18 06:00 Blood Pressure 141/63 01/26/18 06:00 O2 Sat by Pulse Oximetry (%) 96 01/25/18 20:32 Constitutional: Yes: Well Nourished, Calm Eyes: Yes: WNL HENT: Yes: WNL Neck: Yes: WNL Cardiovascular: Yes: Regular Rate and Rhythm, S1, S2 Respiratory: Yes: Diminished Gastrointestinal: Yes: Normal Bowel Sounds, Soft Extremities: Yes: WNL Edema: No Labs: CBC, BMP 01/26/18 06:49 01/26/18 06:49 Problem List - Problems (1) Acute on chronic respiratory failure with hypoxia and hypercapnia Code(s): J96.21 - ACUTE AND CHRONIC RESPIRATORY FAILURE WITH HYPOXIA; J96.22 - ACUTE AND CHRONIC RESPIRATORY FAILURE WITH HYPERCAPNIA (2) Emphysema of lung Code(s): J43.9 - EMPHYSEMA, UNSPECIFIED (3) COPD exacerbation Code(s): J44.1 - CHRONIC OBSTRUCTIVE PULMONARY DISEASE W (ACUTE) EXACERBATION (4) Pneumonia Code(s): J18.9 - PNEUMONIA, UNSPECIFIED ORGANISM (5) Lung nodule Code(s): R91.1 - SOLITARY PULMONARY NODULE Assessment/Plan IMP ACUTE ON CHRONIC HYPOXEMIC/HYPERCAPNEIC RESPIRATORY FAILURE IMPROVED ADVANCED COPD O2 DEPENDENT RML INFILTRATE RUL PULMONARY NODULE ? MALIGNANT H/O CERVICAL CA S/P HYSTERECTOMY PLAN O2 TO MAINTAIN O2 SAT 90% OR GREATER NIPPV NEEDED INHALED BRONCHODILATORS MEDROL TAPER ABX DVT PROPHYLAXIS PET CT OUTPATIENT PULMONARY REHAB POST DISCHARGE TRILOGY DEVICE AT HOME DR HAMMOND Problem List - Problems (1) Acute on chronic respiratory failure with hypoxia and hypercapnia Code(s): J96.21 - ACUTE AND CHRONIC RESPIRATORY FAILURE WITH HYPOXIA; J96.22 - ACUTE AND CHRONIC RESPIRATORY FAILURE WITH HYPERCAPNIA (2) Emphysema of lung Code(s): J43.9 - EMPHYSEMA, UNSPECIFIED (3) COPD exacerbation Code(s): J44.1 - CHRONIC OBSTRUCTIVE PULMONARY DISEASE W (ACUTE) EXACERBATION (4) Pneumonia Code(s): J18.9 - PNEUMONIA, UNSPECIFIED ORGANISM (5) Lung nodule Code(s): R91.1 - SOLITARY PULMONARY NODULE
[2018-01-26] MEDS ORDERED: guaiFENesin/D-METHORPHAN HB 10 ML UNIT-DOSE CUPS PO PRN (10:34)
[2018-01-26] MEDS: BUDESONIDE/FORMETEROL FUMARATE 160/4.5 mcg INHALER IH SCH ×2 (11:22→22:25)
--- NOTE | 2018-01-26 12:53 | PN ---
Teaching Attending Note Name of Resident: Farida Garcia ATTENDING PHYSICIAN STATEMENT I saw and evaluated the patient. I reviewed the resident's note and discussed the case with the resident. I agree with the resident's findings and plan as documented. SUBJECTIVE: Breathing is getting better , improved cough. walking with PT OBJECTIVE: NAD Cv : RRR Lungs:good air entry, no wheezes , decreased breath sounds at bases EXT: No edema ASSESSMENT AND PLAN: 72 y/o lady with h/o COPD , and cervical sx who presented with SOB and was found to have acute COPD exacerbation and PNA 1- Acute COPD exacerbation. - COnt NEbs - steroids decreased to 40 q12h today - BIPAP at night - cont O2 2- PNA: finished Abx 3- b/l lung nodules and liver nodules on Ct scan : f/uas out pt for PET scan and repeat CT 4- dispo : HLOC willl d/w [facility] pulmonary rehab when ready
--- NOTE | 2018-01-26 12:55 | PN ---
Physical Exam: SUBJECTIVE: Patient seen and examined. No acute events overnight. Admits to persistent sob, but much improved since yesterday. Pt reports she is also able to walk. Denies headaches/dizziness, nausea/vomiting, and mild chest discomfort that is unchanged since yesterday. OBJECTIVE: Vital Signs Temperature 97.9 F 01/26/18 09:00 Pulse Rate 85 01/26/18 09:00 Respiratory Rate 20 01/26/18 09:00 Blood Pressure 134/81 01/26/18 09:00 O2 Sat by Pulse Oximetry (%) 96 01/25/18 20:32 GENERAL: The patient is awake, alert, and fully oriented, in no acute distress. NECK: Trachea midline, full range of motion, supple. LUNGS: Breath sounds equal, decreased air entry b/l, scant inspiratory wheezes, no accessory muscle use. On BiPAP. HEART: Regular rate and rhythm, S1, S2 without murmur, rub or gallop. ABDOMEN: Soft, nontender, nondistended, normoactive bowel sounds, no guarding, no rebound, no hepatosplenomegaly, no masses. EXTREMITIES: 2+ pulses, warm, well-perfused, no edema. NEUROLOGICAL: Cranial nerves II through X grossly intact. Normal speech, gait not observed. SKIN: Warm, dry, normal turgor, no rashes or lesions noted CBC, BMP 01/26/18 06:49 01/26/18 06:49 Active Medications Albuterol/Ipratropium (Duoneb -) 1 amp NEB RQID [facility] Last Admin: 01/26/18 12:42 Dose: 1 amp Albuterol/Ipratropium (Duoneb -) 1 amp NEB Q4H PRN PRN Reason: SHORTNESS OF BREATH Aspirin (Asa -) 81 mg PO DAILY [facility] Last Admin: 01/26/18 09:08 Dose: 81 mg Atorvastatin Calcium (Lipitor -) 40 mg PO [facility] Last Admin: 01/25/18 21:48 Dose: 40 mg Budesonide/Formoterol Fumarate (Symbicort 160/4.5mcg -) 2 puff IH BID [facility] Last Admin: 01/26/18 11:22 Dose: 2 puff Clonazepam (Klonopin -) 1 mg PO [facility] Last Admin: 01/24/18 21:35 Dose: 1 mg Clonazepam (Klonopin -) 0.5 mg PO HS [facility] Docusate Sodium (Colace -) 300 mg PO HS [facility] Last Admin: 01/25/18 21:48 Dose: 300 mg Erythromycin (Erythromycin 0.5% Eye Ointment) 1 applic OD QID [facility] Last Admin: 01/25/18 21:52 Dose: 1 applic Guaifenesin (Robitussin Dm -) 10 ml PO Q4H PRN PRN Reason: COUGH Last Admin: 01/26/18 11:21 Dose: 10 ml Heparin Sodium (Porcine) (Heparin -) 5,000 unit SQ TID [facility] Last Admin: 01/26/18 05:56 Dose: 5,000 unit Methylprednisolone Sodium Succinate (Solu-Medrol -) 40 mg IVPUSH Q12H [facility] Metoprolol Tartrate (Lopressor -) 100 mg PO BID [facility] Last Admin: 01/26/18 09:07 Dose: 100 mg Pantoprazole Sodium (Protonix -) 40 mg PO DAILY [facility] Last Admin: 01/26/18 09:08 Dose: 40 mg Verapamil HCl (Verapamil Hcl) 120 mg PO DAILY [facility] Last Admin: 01/26/18 09:08 Dose: 120 mg IMAGING: CT Chest: No CT evidence of pulmonary embolism. Centrilobular emphysema which is probably moderate. Correlate clinically. Small opacities are noted within the right middle lobe suggestive of infiltrates. Left lower lobe linear oblique opacity is noted which could be on a postsurgical basis. This linear opacity extends to the chest wall with an associated small chest wall defect. A small amount of lung herniation is seen at that site into the extrathoracic soft tissues. Nonspecific bilateral pulmonary nodules are visualized. Correlation with 2 month follow-up CT is essential if prior CT studies are not available from a different facility for direct comparison. Small pericardial effusion. The main pulmonary diameter is mildly prominent suggestive of possible increased pulmonary arterial pressure. A nonspecific 1.5 cm right renal cortical hypodense lesion is seen which could represent a complex cyst versus neoplastic disease on the basis of the current exam. MRI evaluation is suggested , preferably without and with intravenous contrast. Note is made of several small nonspecific left and right hepatic lobe foci as discussed above. MRI evaluation is also suggested in this regard. Moderate hiatal hernia. CXR: Since 10/26/2016, again noted is the large heart with prominent right hilar markings. There may be some atelectasis at the right base. The bones and soft tissues are intact and the left lung is clear. Correlation recommended. Follow- up imaging suggested. ASSESSMENT/PLAN: The patient is a 72 yo F w/ pmhx of COPD (O2 dependent), R facial spasms, cervical cx s/p hysterectomy, osteoporosis admitted for COPD exacerbation #acute COPD exacerbation w/ R middle lobe infiltrate; Breathing much improved. -abx tx completed (Ceftriaxone and Azithromycin) -cont nebs -Solumedrol 40 mg IVPB Q12H -Symbicort 160, 2 puffs Q12H -Guanifesin 10 mL PO Q4H for cough -BiPAP at night -Per pulm: PET scan as outpatient, repeat CT #acute on chronic hypoxemic/hypercapneic respiratory failure; Resolved. -on BiPAP at night. #Morbid obesity -summer counselor pt on eating habits #constipation -Colace 300 mg PO HS #R facial spasms -start Klonopin 0.5 mg PO HS #HTN; 128/50 today. -Metoprolol Tartrate 100 mg PO BID -Verapamil HCl 120 mg PO QD #Conjunctivitis, R eye; Resolved. #DVT Ppx -Heparin 5000U SQ TID #FEN -no IVf indicated -monitor lytes -Regular diet dispo -cont to monitor on tele -d/w CM regarding placement in pulm rehab Visit type - Emergency Visit Emergency Visit: Yes ED Registration Date: 01/20/18 Care time: The patient presented to the Emergency Department on the above date and was hospitalized for further evaluation of their emergent condition. - New Patient This patient is new to me today: No - Critical Care Critical Care patient: No
[2018-01-26] MEDS ORDERED: clonazePAM 0.5 MG TABLET PO SCH (22:00)
[2018-01-26] MEDS: DOCUSATE SODIUM 100 MG CAPSULE (FP) PO SCH (22:11)
[2018-01-26] MEDS: ATORVASTATIN CA 40 MG TABLET (FP) PO SCH (22:11)
[2018-01-26] MEDS: methylPREDNISolone NA SUCC 40 MG/1 ML VIAL IVPUSH SCH (22:12)
[2018-01-27] MEDS: HEPARIN NA (PORCINE) 5,000 UNITS/ML 1ML VIAL SQ SCH ×2 (06:51→14:52)
[2018-01-27] MEDS: ALBUTEROL SO4 2.5/IPRATROPIUM 0.5 INH SOL 3 ML VIAL.NEB. NEB SCH ×3 (07:46→16:46)
[2018-01-27 07:58] LABS: HEMATOCRIT 31.7 % (32.4-45.2); HEMOGLOBIN 10.2 GM/dL (10.7-15.3); MCH 25.3 pg (25.7-33.7); MEAN PLT VOLUME 7.5 fl (7.5-11.1); PLATELET COUNT 213 K/MM3 (134-434); RBC 4.01 M/mm3 (3.60-5.2); RDW 16.8 % (11.6-15.6); WHITE BLOOD COUNT 9.7 K/mm3 (4.0-10.0)
[2018-01-27 08:43] LABS: ALBUMIN 2.8 g/dl (3.4-5.0); ANION GAP 10 MMOL/L (8-16); BLOOD UREA NITROGEN 29 mg/dL (7-18); CALCIUM 8.7 mg/dL (8.5-10.1); CHLORIDE 99 mmol/L (98-107); CO2 35 mmol/L (21-32); GLUCOSE,RANDOM 224 mg/dL (74-106); SODIUM 144 mmol/L (136-145)
[2018-01-27 08:47] LABS: ALK PHOS 103 U/L (45-117); BILIRUBIN,TOTAL 0.3 mg/dL (0.2-1.0); SGOT/AST 11 U/L (15-37); SGPT/ALT 20 U/L (12-78); TOT PROT 5.1 g/dl (6.4-8.2)
[2018-01-27] MEDS: methylPREDNISolone NA SUCC 40 MG/1 ML VIAL IVPUSH SCH (10:00)
[2018-01-27] MEDS ORDERED: PT OWN MED DRAWER 7, Y5N ONE ×2 (10:28→18:21)
[2018-01-27] MEDS: VERAPAMIL HCL 120 MG TABLET PO SCH (10:30)
[2018-01-27] MEDS: METOPROLOL TARTRATE 50 MG TABLET (FP) PO SCH (10:30)
[2018-01-27] MEDS: PANTOPRAZOLE 40 MG TABLET (FP) PO SCH (10:30)
[2018-01-27] MEDS: ASPIRIN 81 MG CHEWABLE TABLETS PO SCH (10:30)
--- NOTE | 2018-01-27 10:56 | PN ---
Progress Note, Physician History of Present Illness: PULMONARY ALERT,FEELING BETTER,DYSPNEA IMPROVING - Current Medication List Current Medications: Active Medications Albuterol/Ipratropium (Duoneb -) 1 amp NEB RQID [facility] Last Admin: 01/27/18 07:46 Dose: 1 amp Albuterol/Ipratropium (Duoneb -) 1 amp NEB Q4H PRN PRN Reason: SHORTNESS OF BREATH Last Admin: 01/26/18 22:40 Dose: 1 amp Aspirin (Asa -) 81 mg PO DAILY [facility] Last Admin: 01/27/18 10:30 Dose: 81 mg Atorvastatin Calcium (Lipitor -) 40 mg PO HS [facility] Last Admin: 01/26/18 22:11 Dose: 40 mg Budesonide/Formoterol Fumarate (Symbicort 160/4.5mcg -) 2 puff IH BID [facility] Last Admin: 01/26/18 22:25 Dose: 2 puff Clonazepam (Klonopin -) 1 mg PO [facility] Last Admin: 01/24/18 21:35 Dose: 1 mg Clonazepam (Klonopin -) 0.5 mg PO [facility] Last Admin: 01/26/18 22:25 Dose: 0.5 mg Docusate Sodium (Colace -) 300 mg PO [facility] Last Admin: 01/26/18 22:11 Dose: 300 mg Erythromycin (Erythromycin 0.5% Eye Ointment) 1 applic OD QID [facility] Last Admin: 01/26/18 22:26 Dose: 1 applic Guaifenesin (Robitussin Dm -) 10 ml PO Q4H PRN PRN Reason: COUGH Last Admin: 01/26/18 11:21 Dose: 10 ml Heparin Sodium (Porcine) (Heparin -) 5,000 unit SQ TID [facility] Last Admin: 01/27/18 06:51 Dose: 5,000 unit Methylprednisolone Sodium Succinate (Solu-Medrol -) 40 mg IVPUSH Q12H [facility] Last Admin: 01/26/18 22:12 Dose: 40 mg Metoprolol Tartrate (Lopressor -) 100 mg PO BID [facility] Last Admin: 01/27/18 10:30 Dose: 100 mg Pantoprazole Sodium (Protonix -) 40 mg PO DAILY [facility] Last Admin: 01/27/18 10:30 Dose: 40 mg Verapamil HCl (Verapamil Hcl) 120 mg PO DAILY [facility] Last Admin: 01/27/18 10:30 Dose: 120 mg - Objective Vital Signs: Vital Signs Temperature 94.4 F L 01/27/18 01:00 Pulse Rate 64 01/27/18 06:00 Respiratory Rate 20 01/27/18 06:00 Blood Pressure 150/74 01/27/18 06:00 O2 Sat by Pulse Oximetry (%) 94 L 01/27/18 06:36 Constitutional: Yes: Well Nourished, Calm Eyes: Yes: WNL HENT: Yes: WNL Neck: Yes: WNL Cardiovascular: Yes: Regular Rate and Rhythm, S1, S2 Respiratory: Yes: Diminished Gastrointestinal: Yes: Normal Bowel Sounds, Soft Extremities: Yes: WNL Edema: No Labs: CBC, BMP 01/27/18 06:15 01/27/18 06:15 Problem List - Problems (1) Acute on chronic respiratory failure with hypoxia and hypercapnia Code(s): J96.21 - ACUTE AND CHRONIC RESPIRATORY FAILURE WITH HYPOXIA; J96.22 - ACUTE AND CHRONIC RESPIRATORY FAILURE WITH HYPERCAPNIA (2) Emphysema of lung Code(s): J43.9 - EMPHYSEMA, UNSPECIFIED (3) COPD exacerbation Code(s): J44.1 - CHRONIC OBSTRUCTIVE PULMONARY DISEASE W (ACUTE) EXACERBATION (4) Pneumonia Code(s): J18.9 - PNEUMONIA, UNSPECIFIED ORGANISM (5) Lung nodule Code(s): R91.1 - SOLITARY PULMONARY NODULE Assessment/Plan IMP ACUTE ON CHRONIC HYPOXEMIC/HYPERCAPNEIC RESPIRATORY FAILURE IMPROVED ADVANCED COPD O2 DEPENDENT RML INFILTRATE RUL PULMONARY NODULE ? MALIGNANT H/O CERVICAL CA S/P HYSTERECTOMY PLAN O2 TO MAINTAIN O2 SAT 90% OR GREATER NIPPV NEEDED INHALED BRONCHODILATORS PREDNISONE ABX DVT PROPHYLAXIS PET CT OUTPATIENT PULMONARY REHAB POST DISCHARGE TRILOGY DEVICE AT HOME DR HAMMOND Problem List - Problems (1) Acute on chronic respiratory failure with hypoxia and hypercapnia Code(s): J96.21 - ACUTE AND CHRONIC RESPIRATORY FAILURE WITH HYPOXIA; J96.22 - ACUTE AND CHRONIC RESPIRATORY FAILURE WITH HYPERCAPNIA (2) Emphysema of lung Code(s): J43.9 - EMPHYSEMA, UNSPECIFIED (3) COPD exacerbation Code(s): J44.1 - CHRONIC OBSTRUCTIVE PULMONARY DISEASE W (ACUTE) EXACERBATION (4) Pneumonia Code(s): J18.9 - PNEUMONIA, UNSPECIFIED ORGANISM (5) Lung nodule Code(s): R91.1 - SOLITARY PULMONARY NODULE
[2018-01-27] MEDS ORDERED: predniSONE 20 MG TABLET (UD) PO SCH (11:00)
[2018-01-27 11:44] VITALS: BMI 32.5
[2018-01-27] MEDS: BUDESONIDE/FORMETEROL FUMARATE 160/4.5 mcg INHALER IH SCH (12:12)
[2018-01-27] MEDS: ERYTHROMYCIN 0.5% OPHTHALMIC OINTMENT 3.5 GM TUBE OD SCH ×3 (12:14→18:28)
--- NOTE | 2018-01-27 14:43 | PN ---
Teaching Attending Note Name of Resident: Farida Garcia ATTENDING PHYSICIAN STATEMENT I saw and evaluated the patient. I reviewed the resident's note and discussed the case with the resident. I agree with the resident's findings and plan as documented. SUBJECTIVE: No fever or chills, breathing is better . minimal cough OBJECTIVE: NAD Cv : RRR Lungs:good air entry, no wheezes EXT: No edema ASSESSMENT AND PLAN: 72 y/o lady with h/o COPD , and cervical sx who presented with SOB and was found to have acute COPD exacerbation and PNA 1- Acute COPD exacerbation. improved - po steroids taper - f/u with plmonary as out pt - COnt NEbs and inhalers at dc - cont O2 2- PNA: finished Abx 3- b/l lung nodules and liver nodules on Ct scan : f/uas out pt for PET scan and repeat CT 4- DC to rehab
[2018-01-27 17:56] VITALS: BP 134/82; PULSE 86; TEMP 98.1
--- NOTE | 2018-01-30 07:50 | DS ---
Physical Exam: SUBJECTIVE: Patient seen and examined. No acute events overnight. OBJECTIVE: PHYSICAL EXAM GENERAL: The patient is awake, alert, and fully oriented, in no acute distress. NECK: Trachea midline, full range of motion, supple. LUNGS: Breath sounds equal, decreased air entry b/l, scant inspiratory wheezes, no accessory muscle use. On BiPAP. HEART: Regular rate and rhythm, S1, S2 without murmur, rub or gallop. ABDOMEN: Soft, nontender, nondistended, normoactive bowel sounds, no guarding, no rebound, no hepatosplenomegaly, no masses. EXTREMITIES: 2+ pulses, warm, well-perfused, no edema. NEUROLOGICAL: Cranial nerves II through X grossly intact. Normal speech, gait not observed. SKIN: Warm, dry, normal turgor, no rashes or lesions noted LABS HOSPITAL COURSE: Date of Admission:01/20/18 IMAGING: CT Chest: No CT evidence of pulmonary embolism. Centrilobular emphysema which is probably moderate. Correlate clinically. Small opacities are noted within the right middle lobe suggestive of infiltrates. Left lower lobe linear oblique opacity is noted which could be on a postsurgical basis. This linear opacity extends to the chest wall with an associated small chest wall defect. A small amount of lung herniation is seen at that site into the extrathoracic soft tissues. Nonspecific bilateral pulmonary nodules are visualized. Correlation with 2 month follow-up CT is essential if prior CT studies are not available from a different facility for direct comparison. Small pericardial effusion. The main pulmonary diameter is mildly prominent suggestive of possible increased pulmonary arterial pressure. A nonspecific 1.5 cm right renal cortical hypodense lesion is seen which could represent a complex cyst versus neoplastic disease on the basis of the current exam. MRI evaluation is suggested , preferably without and with intravenous contrast. Note is made of several small nonspecific left and right hepatic lobe foci as discussed above. MRI evaluation is also suggested in this regard. Moderate hiatal hernia. CXR: Since 10/26/2016, again noted is the large heart with prominent right hilar markings. There may be some atelectasis at the right base. The bones and soft tissues are intact and the left lung is clear. Correlation recommended. Follow- up imaging suggested. 72 yo F w/ pmhx of COPD (O2 dependent), R facial spasms, cervical cx s/p hysterectomy, osteoporosis admitted for COPD exacerbation. In the ED, CT Chest was done that showed suggestive findings of R middle lobe infiltrates as well as a pulmonary nodule in her R upper lobe. CT was also negative for PE. Due to concern for pneumonia, pt was given ceftriaxone/azithromycin, duonebs and Symbicort in the ED. ECG was done that showed sinus tachycardia w/ nonspecific T waves changes. VBG was also done in the ED that showed elevated CO2. During her hospital stay, pt was found to have abnormal breathing during sleep and ABG was done that showed respiratory acidosis with metabolic alkalosis. Pt was placed on BiPAP per pulm recommendation and breathing subsequently improved. Pt was monitored throughout her hospital stay, and BiPAP was weaned. Pt was discharged to pulm rehab with steroid taper for treatment of her COPD exacerbation. She was also given recommendation to follow up with her technical support engineer for further eval of the pulmonary nodule with PET scan imaging. Additionally, pt was given instructions to continue primary care outpatient follow up at the residency clinic. Date of Discharge: 01/27/18 Minutes to complete discharge: 35 Discharge Summary Reason For Visit: OBSTRUCTIVE CHRONIC BRONCHITITS WITH EXACERBATION Condition: Improved - Instructions Diet, Activity, Other Instructions: You were admitted to the hospital for acute COPD exacerbation. You were treated with antibiotics and inhalers to improve your breathing. Additionally, you were found to have conjunctivitis in your right eye in which you were given eye drops. Throughout your hospital stay, your symptoms improved. You are being discharged to a pulmonary rehab facility for further treatment of your lung condition. Additionally, a CT scan was done that showed a pulmonary ( lung ) nodules and liver nodules. MEDICAL RECOMMENDATIONS Please start taking your Prednisone taper. Follow the directions listed below: Please take Prednisone 60 mg once starting tomorrow, January 28. Please take Prednisone 50 mg once on January 29. Please take Prednisone 50 mg once on January 30. Please take Prednisone 40 mg once on January 31. Please take Prednisone 40 mg once on February 01. Please take Prednisone 30 mg once on February 02. Please take Prednisone 30 mg once on February 03. Please take Prednisone 20 mg once on February 04. Please take Prednisone 20 mg once on February 05. Please take Prednisone 10 mg once on February 06. Please take Prednisone 10 mg once on February 07. Please continue taking the rest of your home meds as directed. CONSULT RECOMMENDATIONS Please follow up with your primary care physician at [facility], within 1 week. You will need a PET scan for further evaluation of a pulmonary and liver nodules . Please follow up outpatient with technical support engineer, Dr. Darling. If you experience persistent shortness of breath, chest pain, worsening fever/ chills, nausea/vomiting, headaches/dizziness, please proceed to your nearest emergency room immediately. Referrals: [facility] [place] [Provider Group] Farida Garcia RES [Resident] - 1 Week Marcell Darling MD [Staff Physician] - 1 Week Disposition: LONGTERM FACILITY - Home Medications Comprehensive Discharge Medication List: Ambulatory Orders Acetaminophen [Mapap] 650 mg PO PRN 10/26/16 Albuterol 0.083% Nebulizer Opal [Ventolin 0.083% Nebulizer Soln -] 1 neb NEB Q6H PRN 10/26/16 Aspirin [ASA -] 81 mg PO DAILY 10/26/16 Citalopram Hydrobromide [Citalopram HBr] 20 mg PO DAILY 10/26/16 Clonazepam [Klonopin] 1 mg PO HS 10/26/16 Denosumab [Prolia -] 60 mg SQ ASDIR 10/26/16 Docusate Sodium [Colace -] 300 mg PO HS 10/26/16 Metoprolol Tartrate [Lopressor] 100 mg PO BID 10/26/16 Omeprazole 40 mg PO DAILY 10/26/16 Umeclidinium Brm/Vilanterol Tr [Anoro Ellipta 62.5-25 Mcg INH] 1 each IH DAILY 10/26/16 Verapamil HCl 120 mg PO DAILY 10/26/16 clonazePAM [Klonopin -] 0.5 mg PO AM 10/26/16 Albuterol 2.5/Ipratropium 0.5 [Duoneb -] 1 amp NEB Q6H 01/20/18 Albuterol Sulfate [Proair Hfa] 2 puff IH Q4H 01/20/18 Atorvastatin Ca [Lipitor] 40 mg PO HS 01/20/18 Cholecalciferol (Vitamin D3) [Vitamin D3] 1,000 unit PO DAILY 01/20/18 Prednisone See Taper PO ASDIR #36 tablet 01/27/18 This patient is new to me today: No Emergency Visit: Yes ED Registration Date: 01/20/18 Care time: The patient presented to the Emergency Department on the above date and was hospitalized for further evaluation of their emergent condition. Critical Care patient: No - Discharge Referral Referred to [facility] No
== END 2018-01-27 19:10 | DRG 193 ==
LOC: JER 14:26 → JERBED 20:42 → J7W 01-21 00:37 → J4W 01-23 18:30
PROVIDERS: ADMIT Internal Medicine; ATTEND Internal Medicine
PROC: 5A09557 Assistance with Respiratory Ventilation, Greater than 96 Consecutive Hours, Continuous Positive Airway Pressure (ICD-10-PCS; principal; 2018-01-20)
DX: J18.9 Pneumonia, unspecified organism (principal); J96.21 Acute and chronic respiratory failure with hypoxia; J96.22 Acute and chronic respiratory failure with hypercapnia; J44.1 Chronic obstructive pulmonary disease with (acute) exacerbation; E87.2 Acidosis; E87.3 Alkalosis; J98.11 Atelectasis; M81.0 Age-related osteoporosis without current pathological fracture; H10.9 Unspecified conjunctivitis; R00.0 Tachycardia, unspecified; R91.1 Solitary pulmonary nodule; J43.9 Emphysema, unspecified; E66.01 Morbid (severe) obesity due to excess calories; Z68.32 Body mass index [BMI] 32.0-32.9, adult; K59.00 Constipation, unspecified; F41.9 Anxiety disorder, unspecified; I10 Essential (primary) hypertension
CPT/HCPCS: 36415; 36600; 71045-TC-FY; 71275-TC; 80048; 80053; 82550; 82803; 82962; 83605; 83735; 84100; 84484; 85025; 85027; 87040; 93005; 93010; 94640; 94660; 97116-GP; 97162-GP; 99285-25; J1644; J7620

== ENCOUNTER 2018-04-01 14:52 | Inpatient (IN) | payer OTHER ==
--- NOTE | 2018-04-01 15:29 | PDOC ---
Attending Attestation - HPI HPI: 04/01/18 17:18 "The patient is a 72-year-old female with past medical history significant for COPD (on 2-3L O2 at home), HTN, GERD without esophagitis, OA, HLD, s/p resection of the right lung and recent diagnosis of pneumonia presents to the emergency department from [facility] via EMS with shortness of breath. The patient reports she was discharged home on 03/30/2018 after seeking treatment for pneumonia. The patient states she was compliant with the antibiotics prescribed, her last dose was yesterday. The patient reports following discharge, she started doing PT for the past 2 days. The patient reports secondary to weakness; the patient started doing physical therapy. The patient states she has pulse oximetry with herself, during PT she noticed a drop on her O2 level to the low 70's. The patient reports she is unsure of her baseline. The patient reports sick contact with other residences, who's been endorsing coughs. Denies abdominal pain, nausea, vomiting, leg swelling, chest pain, fever. Allergies: Latex, Codeine, PCN, Sulfa PMD: Dr. Antony Mccrary " - Medical Decision Making 04/01/18 17:19 Documentation prepared by Mayuri Craft, acting as medical insurance verifier for Abdiaziz Lugo MD. <Mayuri Craft - Last Filed: 04/01/18 17:18> - Resident Resident Name: DelorisJake - ED Attending Attestation I have performed the following: I have examined & evaluated the patient, The case was reviewed & discussed with the resident, I agree w/resident's findings & plan, Exceptions are as noted - Physicial Exam PE: 04/01/18 16:39 GENERAL: The patient is awake, alert, and fully oriented, Nontoxic - in no acute distress. HEAD: Normocephalic, atraumatic. NECK: Normal range of motion, supple LUNGS: Moderate respirator distress, expiratory wheezing bilaterally HEART: Rtachcyardic, regular ABDOMEN: Soft, nontender, No guarding, no rebound. No CVA tenderness EXTREMITIES: Normal range of motion, NEUROLOGICAL: No facial assymetry, Normal speech, PSYCH: Normal mood, normal affect. SKIN: Warm, Dry, normal turgor, - Medical Decision Making 10/27/18 15:23 72y F recent admission for COPD (2-3L of o2 at [facility]) and pna, dc home, was complaining of increased cough/sob starting yesterday without fever, cp, abd pain, n/v/d, melena, bpr. per pt, o2 sat was in 70s per PT. on arrival pt noted to be mildly tachypneic sattered expiratory wheezing b/l no LE edema suspect COPD exacerbation will obtain blood work cxr pt had mild effusion on CT in the past - will obtain bedside echocardiogram <Abdiaziz Lugo - Last Filed: 04/01/18 19:07> Heart Score/ECG Review - ECG Impressions Comment:: 04/01/18 19:06 Twelve-lead EKG was performed and reviewed by me. There is normal sinus rhythm with a rate of [address] wave changes imp sinus tachycardia <Abdiaziz Lugo - Last Filed: 04/01/18 19:07>
[2018-04-01] MEDS ORDERED: ALBUTEROL SO4 2.5/IPRATROPIUM 0.5 INH SOL 3 ML VIAL.NEB. NEB ONE ×4 (15:38→17:00)
[2018-04-01] MEDS ORDERED: methylPREDNISolone NA SUCC 125 MG/2 ML VIAL IVPB ONE (15:39)
[2018-04-01] MEDS ORDERED: methylPREDNISolone NA SUCC 125 MG/2 ML VIAL ONE (15:44)
[2018-04-01 16:00] LABS: BASO % 0.6 % (0-2.0); EOS % 3.9 % (0-4.5); HEMATOCRIT 34.8 % (32.4-45.2); HEMOGLOBIN 10.8 GM/dL (10.7-15.3); LYMPH % 7.4 % (8-40); MCH 25.6 pg (25.7-33.7); MEAN CELL VOLUME 82.8 fl (80-96); MEAN PLT VOLUME 7.3 fl (7.5-11.1); MONO % 8.1 % (3.8-10.2); PLATELET COUNT 238 K/MM3 (134-434); RBC 4.21 M/mm3 (3.60-5.2); RDW 17.2 % (11.6-15.6); WHITE BLOOD COUNT 8.8 K/mm3 (4.0-10.0)
[2018-04-01 16:09] LABS: VENOUS PH 7.27 (7.32-7.42)
[2018-04-01 16:12] LABS: VENOUS PC02 80.6 mmHg (38-52)
[2018-04-01 16:32] LABS: ALBUMIN 3.6 g/dl (3.4-5.0); ALK PHOS 82 U/L (45-117); ANION GAP 5 MMOL/L (8-16); BILIRUBIN,TOTAL 0.3 mg/dL (0.2-1); BLOOD UREA NITROGEN 27 mg/dL (7-18); CALCIUM 9.4 mg/dL (8.5-10.1); CHLORIDE 101 mmol/L (98-107); CO2 37 mmol/L (21-32); GLUCOSE,RANDOM 125 mg/dL (74-106); SGPT/ALT 11 U/L (13-61); SODIUM 143 mmol/L (136-145); TOT PROT 6.5 g/dl (6.4-8.2)
[2018-04-01 16:33] LABS: POTASSIUM 4.5 mmol/L (3.5-5.1); SGOT/AST 28 U/L (15-37)
[2018-04-01 17:00] LABS: INR 0.98 (0.83-1.09); PROTHROMBIN TIME (PATIENT) 11.6 SEC (9.7-13.0)
[2018-04-01 17:03] LABS: ACTIVATED PTT 21.1 SECONDS (25.2-36.5)
--- NOTE | 2018-04-01 17:03 | PDOC ---
History of Present Illness - General Chief Complaint: Shortness of Breath Stated Complaint: DIFFICULTY BREATHING Time Seen by Provider: 04/01/18 15:16 History Source: Patient Exam Limitations: No Limitations - History of Present Illness Initial Comments: 04/01/18 16:58 72 yo female pmh of recent admission for pneumonia and COPD (2-3 L NC on average at home) and pulmonary nodule on lung after PET scan. Presents to ED with 3 days of dry cough and worsening SOB at therapy with O2 sats in the 70s along with a productive cough today with green sputum and increased work of breathing. Pt states she recently finished her course of antibiotics for pneumonia with improvement of symptoms until 3 days ago. Denies F/C/N/V CP, SOB , abdominal pain, changes in bowel or bladder habits. Past History - Past Medical History Allergies/Adverse Reactions: Allergies Allergy/AdvReac Type Severity Reaction Status Date / Time codeine Allergy Verified 04/01/18 15:08 latex Allergy Verified 04/01/18 15:08 Sulfa (Sulfonamide Allergy Verified 04/01/18 15:08 Antibiotics) Home Medications: Ambulatory Orders Acetaminophen [Mapap] 650 mg PO PRN 10/26/16 Aspirin [ASA -] 81 mg PO DAILY 10/26/16 Citalopram Hydrobromide [Citalopram HBr] 20 mg PO DAILY 10/26/16 Clonazepam [Klonopin] 1 mg PO HS 10/26/16 Docusate Sodium [Colace -] 300 mg PO HS 10/26/16 Metoprolol Tartrate [Lopressor] 100 mg PO BID 10/26/16 Omeprazole 40 mg PO DAILY 10/26/16 Umeclidinium Brm/Vilanterol Tr [Anoro Ellipta 62.5-25 Mcg INH] 1 each IH DAILY 10/26/16 Verapamil HCl 120 mg PO DAILY 10/26/16 clonazePAM [Klonopin -] 0.5 mg PO AM 10/26/16 Albuterol 2.5/Ipratropium 0.5 [Duoneb -] 1 amp NEB Q6H 01/20/18 Albuterol Sulfate [Proair Hfa] 2 puff IH Q4H 01/20/18 Atorvastatin Ca [Lipitor] 40 mg PO HS 01/20/18 Cholecalciferol (Vitamin D3) [Vitamin D3] 1,000 unit PO DAILY 01/20/18 Prednisone See Taper PO ASDIR #36 tablet 01/27/18 Anemia: Yes Asthma: Yes Cancer: Yes (uterine) Cardiac Disorders: No CVA: No COPD: Yes CHF: No Dementia: No Diabetes: No GI Disorders: Yes (gerd) Disorders: No HTN: Yes Hypercholesterolemia: Yes Liver Disease: No Psychiatric Problems: Yes (anxiety) Seizures: No Thyroid Disease: No - Surgical History Abdominal Surgery: No Appendectomy: No Cardiac Surgery: No Cholecystectomy: No Lung Surgery: Yes (lung nodules) Neurologic Surgery: No Orthopedic Surgery: No - Suicide/Smoking/Psychosocial Hx Smoking History: Former smoker Have you smoked in the past 12 months: Yes If you are a former smoker, when did you quit?: 4 years ago Information on smoking cessation initiated: No Hx Alcohol Use: No Drug/Substance Use Hx: No Substance Use Type: None, Alcohol Hx Substance Use Treatment: No Review of Systems - Review of Systems Constitutional: No: Chills, Fever Respiratory: Yes: Cough (productive of green sputum), Shortness of Breath, Wheezing Cardiac (ROS): No: Chest Pain, Edema, Irregular Heart Rate ABD/GI: No: Constipated, Diarrhea, Nausea, Vomiting : No: Burning, Dysuria, Flank Pain Musculoskeletal: No: Back Pain Integumentary: No: Change in Color *Physical Exam - Vital Signs Last Vital Signs Temp Pulse Resp BP Pulse Ox 98.7 F 126 H 26 H 111/60 96 04/01/18 15:06 04/01/18 16:18 04/01/18 15:06 04/01/18 15:06 04/01/18 16:18 - Physical Exam General Appearance: Yes: Nourished, Appropriately Dressed, Apparent Distress HEENT: positive: EOMI ED Treatment Course - LABORATORY CBC & Chemistry Diagram: 04/01/18 15:30 04/01/18 15:37 - ADDITIONAL ORDERS Additional order review: Laboratory Results 04/01/18 04/01/18 15:37 15:37 VBG pH 7.27 L POC VBG pCO2 80.6 H* D POC VBG pO2 30.0 D Mixed VBG HCO3 35.5 H Sodium 143 Potassium 4.5 Chloride 101 Carbon Dioxide 37 H Anion Gap 5 L BUN 27 H Creatinine 1.0 Creat Clearance w eGFR 54.50 Random Glucose 125 H Calcium 9.4 Total Bilirubin 0.3 AST 28 ALT 11 L Alkaline Phosphatase 82 Creatine Kinase 76 Troponin I < 0.02 Total Protein 6.5 Albumin 3.6 04/01/18 15:30 RBC 4.21 MCV 82.8 MCHC 31.0 L RDW 17.2 H MPV 7.3 L Neutrophils % 80.0 Lymphocytes % 7.4 L D Monocytes % 8.1 Eosinophils % 3.9 D Basophils % 0.6 D - Medications Given in the ED: ED Medications Discontinued Medications Generic Name Dose Route Start Last Admin Trade Name Shanna PRN Reason Stop Dose Admin Albuterol/Ipratropium 3 amp 04/01/18 15:38 04/01/18 15:58 Duoneb - NEB 04/01/18 15:39 3 amp ONCE ONE Administration Methylprednisolone Sodium Succinate 125 mg 04/01/18 15:39 04/01/18 15:58 Solu-Medrol - IVPB 04/01/18 15:40 125 mg ONCE ONE Administration Medical Decision Making - Medical Decision Making 04/01/18 17:33 72 yo pmh COPD and pneumonia presents with productive cough, worsening SOB, increased need for home O2 (2L NC to 5 on arrival) and low O2 sats on arrival. ( 80s) DDX: COPD, Pneumonia, PE (unlikely, no leg swelling or tenderness, no RV hypertrophy on bedside fast) On arrival pt on 5L O2 NC with sats in the low 90s. At home only requires 2-3L Pt received 3 breathing treatments, 125mg Opal Med but has had fluctuating 02 sats from 83-88 BIPAP ordered (IPAP 10, EPAP 5, rate 16, FIO2 100%) 2g magnesium ordered Patient clinically improved, 100% sat on BIPAP Will admit to Dr. Mendoza *DC/Admit/Observation/Transfer Diagnosis at time of Disposition: COPD exacerbation - Discharge Dispostion Condition at time of disposition: Stable Decision to Admit order: Yes - Referrals - Patient Instructions - Post Discharge Activity
[2018-04-01] MEDS ORDERED: MAGNESIUM SULF 50% (8.12 MEQ/2 ML-1 GM VIAL) IVPB ONE (17:30)
[2018-04-01] MEDS ORDERED: MAGNESIUM 1GM/D5W - 2 GM/200 ML IVPB IVPB ONE (17:34)
[2018-04-01 17:59] LABS: URINE APPEARANCE SLCLOUDY; URINE BILIRUBIN NEGATIVE (<2.0 mg/dL); URINE COLOR YELLOW; URINE GLUCOSE (UA) NEGATIVE (NEGATIVE); URINE KETONE NEGATIVE (NEGATIVE); URINE LEUK ESTERASE TRACE (NEGATIVE); URINE NITRITE NEGATIVE (NEGATIVE); URINE PROTEIN NEGATIVE (NEGATIVE); URINE UROBILINOGEN NEGATIVE mg/dL (0.2-1.0)
[2018-04-01 18:16] LABS: EPI CELLS MODERATE /HPF (FEW); URINE BACTERIA RARE /hpf (NONE SEEN); URINE MUCUS RARE
--- NOTE | 2018-04-01 20:37 | HP ---
CHIEF COMPLAINT: shortness of breath and cough PCP: HISTORY OF PRESENT ILLNESS: 72 y/o female with PMH of COPD (on 2-L of home 02), HTN. 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 Of note, patient was just recently discharged from the hospital and went to rehab for a pneumonia, and finished her last dose of antibiotics yesterday. She states that she was at physical therapy when she began to feel tired and saw her O2 saturations were dropping into the 80's so she was sent to the ER. When she arrived to the ER patients o2 sas were still in the 80's so she was originally put on 2L NC with no improvment in her sats, then placed on 5L and now patient is currently on BIPAP. ER course was notable for: (1)patient started with 5L of 02 now on BIPAP (2)required 3 breathing treatments and 125 IV solumedrol (3) Recent Travel: none PAST MEDICAL HISTORY: see above PAST SURGICAL HISTORY: partial L lung resection, hysterectomy Social History: Smoking: former 30 pack year history; quit 4 years ago Alcohol:denies Drugs: denies Family History: father from cardiac issues; mother from brain tumor Allergies codeine Allergy (Verified 04/01/18 15:08) latex Allergy (Verified 04/01/18 15:08) Sulfa (Sulfonamide Antibiotics) Allergy (Verified 04/01/18 15:08) HOME MEDICATIONS: Home Medications Medication Instructions Recorded Acetaminophen [Mapap] 650 mg PO PRN 10/26/16 Aspirin [ASA -] 81 mg PO DAILY 10/26/16 Citalopram Hydrobromide 20 mg PO DAILY 10/26/16 [Citalopram HBr] Clonazepam [Klonopin] 1 mg PO HS 10/26/16 Docusate Sodium [Colace -] 300 mg PO HS 10/26/16 Metoprolol Tartrate [Lopressor] 100 mg PO BID 10/26/16 Omeprazole 40 mg PO DAILY 10/26/16 Umeclidinium Brm/Vilanterol Tr 1 each IH DAILY 10/26/16 [Anoro Ellipta 62.5-25 Mcg INH] Verapamil HCl 120 mg PO DAILY 10/26/16 clonazePAM [Klonopin -] 0.5 mg PO AM 10/26/16 Albuterol 2.5/Ipratropium 0.5 1 amp NEB Q6H 01/20/18 [Duoneb -] Albuterol Sulfate [Proair Hfa] 2 puff IH Q4H 01/20/18 Atorvastatin Ca [Lipitor] 40 mg PO HS 01/20/18 Cholecalciferol (Vitamin D3) 1,000 unit PO DAILY 01/20/18 [Vitamin D3] Prednisone See Taper PO ASDIR #36 tablet 01/27/18 REVIEW OF SYSTEMS CONSTITUTIONAL: Absent: fever, chills, diaphoresis, generalized weakness, malaise, loss of appetite, weight change HEENT: Present: facial spasms Absent: rhinorrhea, nasal congestion, throat pain, throat swelling, difficulty swallowing, mouth swelling, ear pain, eye pain, visual changes CARDIOVASCULAR: Absent: chest pain, syncope, palpitations, irregular heart rate, lightheadedness , peripheral edema RESPIRATORY: Present: cough, shortness of breath, dyspnea with exertion Absent: , orthopnea, wheezing, stridor, hemoptysis GASTROINTESTINAL: Absent: abdominal pain, abdominal distension, nausea, vomiting, diarrhea, constipation, melena, hematochezia GENITOURINARY: Absent: dysuria, frequency, urgency, hesitancy, hematuria, flank pain, genital pain MUSCULOSKELETAL: Absent: myalgia, arthralgia, joint swelling, back pain, neck pain SKIN: Absent: rash, itching, pallor HEMATOLOGIC/IMMUNOLOGIC: Absent: easy bleeding, easy bruising, lymphadenopathy, frequent infections ENDOCRINE: Absent: unexplained weight gain, unexplained weight loss, heat intolerance, cold intolerance NEUROLOGIC: Absent: headache, focal weakness or paresthesias, dizziness, unsteady gait, seizure, mental status changes, bladder or bowel incontinence PSYCHIATRIC: Absent: anxiety, depression, suicidal or homicidal ideation, hallucinations. PHYSICAL EXAMINATION Vital Signs - 24 hr 04/01/18 04/01/18 04/01/18 15:06 16:18 17:25 Temperature 98.7 F Pulse Rate 127 H 126 H Pulse Rate [ Left Apical] Respiratory 26 H Rate Blood Pressure 111/60 Blood Pressure [Left Arm] O2 Sat by Pulse 79 L 95 100 Oximetry (%) 04/01/18 04/01/18 04/01/18 17:42 18:27 19:44 Temperature 98.0 F 98.1 F Pulse Rate Pulse Rate [ 126 H 116 H 114 H Left Apical] Respiratory 16 16 27 H Rate Blood Pressure Blood Pressure 123/67 123/67 113/55 L [Left Arm] O2 Sat by Pulse 100 100 100 Oximetry (%) GENERAL: Awake, alert, wearing BIPAP,in slight distress EYES: no scleral icterus NECK: no JVD appreciated LUNGS: B/L expiratory wheezes. HEART: tachycardic, normal S1 and S2 without murmur, rub or gallop. ABDOMEN: Soft, nontender, not distended, normoactive bowel sounds, no guarding, no rebound, no masses. No hepatomegaly or splenomegaly. MUSCULOSKELETAL: Normal range of motion at all joints. No bony deformities or tenderness. No CVA tenderness.. LOWER EXTREMITIES: 2+ pulses, warm, well-perfused. No calf tenderness. No peripheral edema. . PSYCHIATRIC: Cooperative. Good eye contact. Appropriate mood and affect. SKIN: Warm, dry, normal turgor, no rashes or lesions noted, normal capillary refill. Laboratory Results - last 24 hr 04/01/18 04/01/18 04/01/18 15:30 15:37 15:37 WBC 8.8 RBC 4.21 Hgb 10.8 Hct 34.8 MCV 82.8 MCH 25.6 L MCHC 31.0 L RDW 17.2 H Plt Count 238 MPV 7.3 L Absolute Neuts (auto) 7.0 Neutrophils % 80.0 Lymphocytes % 7.4 L D Monocytes % 8.1 Eosinophils % 3.9 D Basophils % 0.6 D Nucleated RBC % 0 PT with INR 11.60 INR 0.98 PTT (Actin FS) 21.1 L VBG pH 7.27 L POC VBG pCO2 80.6 H* D POC VBG pO2 30.0 D Mixed VBG HCO3 35.5 H Sodium Potassium Chloride Carbon Dioxide Anion Gap BUN Creatinine Creat Clearance w eGFR Random Glucose Calcium Total Bilirubin AST ALT Alkaline Phosphatase Creatine Kinase Troponin I Total Protein Albumin Urine Color Urine Appearance Urine pH Ur Specific [place] Urine Protein Urine Glucose (UA) Urine Ketones Urine Blood Urine Nitrite Urine Bilirubin Urine Urobilinogen Ur Leukocyte Esterase Urine WBC (Auto) Urine RBC (Auto) Ur Epithelial Cells Urine Bacteria Urine Mucus 10/27/18 10/27/18 15:37 17:45 WBC RBC Hgb Hct MCV MCH MCHC RDW Plt Count MPV Absolute Neuts (auto) Neutrophils % Lymphocytes % Monocytes % Eosinophils % Basophils % Nucleated RBC % PT with INR INR PTT (Actin FS) VBG pH POC VBG pCO2 POC VBG pO2 Mixed VBG HCO3 Sodium 143 Potassium 4.5 Chloride 101 Carbon Dioxide 37 H Anion Gap 5 L BUN 27 H Creatinine 1.0 Creat Clearance w eGFR 54.50 Random Glucose 125 H Calcium 9.4 Total Bilirubin 0.3 AST 28 ALT 11 L Alkaline Phosphatase 82 Creatine Kinase 76 Troponin I < 0.02 Total Protein 6.5 Albumin 3.6 Urine Color Yellow Urine Appearance Slcloudy Urine pH 5.0 Ur Specific [place] 1.018 Urine Protein Negative Urine Glucose (UA) Negative Urine Ketones Negative Urine Blood Negative Urine Nitrite Negative Urine Bilirubin Negative Urine Urobilinogen Negative Ur Leukocyte Esterase Trace Urine WBC (Auto) 4 Urine RBC (Auto) 1 Ur Epithelial Cells Moderate Urine Bacteria Rare Urine Mucus Rare ASSESSMENT/PLAN: 72 y/o female with PMH of COPD, HTN, GERD, HLD, cervical CA who presented to the ED with a 2 day history of worsening shortness of breath, with associated productive cough and weakness. COPD Exacerbation: patient likely having an acute COPD exacerbation -PO prednisone 80 daily -azithromycin 500 daily -duonebs standing TID -pulmonary consulted HTN: -c/w verapamil 120 daily -c/w lopressor 100 BID HLD: -c/w atorvastatin 40 daily GERD: - c/w omeprazole 40 daily R facial spasms: -holding patients klonopin since benzos cause respiratory depression F/E/N not on standing fluids replete electrolytes when necessary sodium restricted diet dvt ppx: lovenox 40 daily Problem List - Problem (1) COPD exacerbation Code(s): J44.1 - CHRONIC OBSTRUCTIVE PULMONARY DISEASE W (ACUTE) EXACERBATION Visit type - Emergency Visit Emergency Visit: Yes ED Registration Date: 04/01/18 Care time: The patient presented to the Emergency Department on the above date and was hospitalized for further evaluation of their emergent condition. - New Patient This patient is new to me today: Yes Date on this admission: 04/01/18 - Critical Care Critical Care patient: No
--- NOTE | 2018-04-01 21:12 | PN ---
Teaching Attending Note Name of Resident: Mely Storey ATTENDING PHYSICIAN STATEMENT I saw and evaluated the patient. I reviewed the resident's note and discussed the case with the resident. I agree with the resident's findings and plan as documented. SUBJECTIVE: OBJECTIVE: ASSESSMENT AND PLAN: this is a 72 y/o female with PMH of COPD (on 2-L of home 02), HTN. 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 Of note, patient was just recently discharged from the hospital and went to rehab for a pneumonia, and finished her last dose of antibiotics yesterday. plan: admit to the observation bipap start patient on methylprednisolone 80mg daily pulmonary evaluation c/w home medication
[2018-04-01] MEDS ORDERED: ASPIRIN 81 MG CHEWABLE TABLETS PO ONE (21:16)
[2018-04-01] MEDS ORDERED: ASPIRIN 81 MG CHEWABLE TABLETS ONE (21:43)
[2018-04-01] MEDS ORDERED: AZITHROMYCIN IVPB 500 MG/250 ML BAG IVPB ONE (21:44)
[2018-04-01] MEDS: AZITHROMYCIN IVPB 500 MG/250 ML BAG IVPB SCH (21:45)
[2018-04-01] MEDS ORDERED: METOPROLOL TARTRATE 50 MG TABLET (FP) PO SCH (22:00)
[2018-04-01 22:26] LABS: ARTERIAL BLOOD GAS BASE EXCESS 6.4 meq/l (-2-2); ARTERIAL BLOOD GAS pH 7.28 (7.35-7.45)
[2018-04-01 22:27] LABS: ALLENS TEST POSITIVE
[2018-04-01 22:29] LABS: ARTERIAL BLD GAS O2 SATURATION 99.6 % (90-98.9); ARTERIAL BLOOD GAS PCO2 76.2 mmHg (35-45)
[2018-04-02 00:11] VITALS: BMI 31.0
[2018-04-02 07:03] LABS: HEMATOCRIT 29.8 % (32.4-45.2); HEMOGLOBIN 9.4 GM/dL (10.7-15.3); MCH 25.8 pg (25.7-33.7); MCHC 31.6 g/dl (32.0-36.0); MEAN CELL VOLUME 81.5 fl (80-96); PLATELET COUNT 189 K/MM3 (134-434); RBC 3.65 M/mm3 (3.60-5.2); RDW 16.8 % (11.6-15.6); WHITE BLOOD COUNT 6.4 K/mm3 (4.0-10.0)
[2018-04-02] MEDS ORDERED: ALBUTEROL SO4 2.5/IPRATROPIUM 0.5 INH SOL 3 ML VIAL.NEB. NEB SCH (08:00)
[2018-04-02 08:48] LABS: ANION GAP 5 MMOL/L (8-16); BLOOD UREA NITROGEN 25 mg/dL (7-18); CALCIUM 8.3 mg/dL (8.5-10.1); CHLORIDE 99 mmol/L (98-107); CO2 38 mmol/L (21-32); CREATININE 0.8 mg/dL (0.55-1.3); GLUCOSE,RANDOM 110 mg/dL (74-106); MAGNESIUM 2.5 mg/dL (1.8-2.4); PHOSPHOROUS 4.3 mg/dL (2.5-4.9); POTASSIUM 4.7 mmol/L (3.5-5.1); SODIUM 141 mmol/L (136-145)
--- NOTE | 2018-04-02 09:07 | PN ---
Progress Note (short form) - Note Progress Note: feeling better than arrival however still having difficulty breathing. states she became very dyspnic with minimal exertion with PT yesterday. Has been at home (assisted living facility) for a week after completing pulmonary rehab at SNF facility. states she has not received her flu shot. got pneumovax last year. completed abx and steroids on Tuesday. denies CP, fever, chills, body aches , N/V/C/D Current Medications Generic Name Dose Route Start Last Admin Trade Name Freq PRN Reason Stop Dose Admin Albuterol/Ipratropium 1 amp 04/02/18 08:00 04/02/18 07:42 Duoneb - NEB 1 amp RTID VALDEZ Administration Enoxaparin Sodium 40 mg 04/02/18 10:00 Lovenox - SQ DAILY VALDEZ Azithromycin 500 mg in 250 mls @ 250 mls/hr 04/01/18 20:30 04/01/18 21:45 Zithromax 500mg Ivpb (Pre-Docked) IVPB 250 mls/hr DAILY VALDEZ Administration Influenza Virus Vaccine Quadrival 60 mcg 04/02/18 10:00 Flulaval Quad [id number] IM 04/02/18 10:01 .ONCE ONE Methylprednisolone Sodium Succinate 80 mg 04/02/18 10:00 Solu-Medrol - IVPUSH DAILY [facility] Metoprolol Tartrate 100 mg 04/02/18 10:00 Lopressor - PO BID VALDEZ Verapamil HCl 120 mg 04/02/18 10:00 Verapamil Hcl PO BID VALDEZ Last Vital Signs Temp Pulse Resp BP Pulse Ox 97.1 F L 105 H 16 102/57 L 98 04/02/18 05:55 04/02/18 05:55 04/02/18 05:55 04/02/18 05:55 04/02/18 06:39 General NAD CV S1 S2 tachy lungs CTA B/L poor inspiratory effort Abdomen soft NT/ND obese extremities no pedal edema CBCD WBC 6.4 K/mm3 (4.0-10.0) 04/02/18 06:45 RBC 3.65 M/mm3 (3.60-5.2) 04/02/18 06:45 Hgb 9.4 GM/dL (10.7-15.3) L 04/02/18 06:45 Hct 29.8 % (32.4-45.2) L 04/02/18 06:45 MCV 81.5 fl (80-96) 04/02/18 06:45 MCHC 31.6 g/dl (32.0-36.0) L 04/02/18 06:45 RDW 16.8 % (11.6-15.6) H 04/02/18 06:45 Plt Count 189 K/MM3 (134-434) D 04/02/18 06:45 MPV 7.0 fl (7.5-11.1) L 04/02/18 06:45 CMP Sodium 141 mmol/L (136-145) 04/02/18 06:45 Potassium 4.7 mmol/L (3.5-5.1) 04/02/18 06:45 Chloride 99 mmol/L (98-107) 04/02/18 06:45 Carbon Dioxide 38 mmol/L (21-32) H 04/02/18 06:45 Anion Gap 5 MMOL/L (8-16) L 04/02/18 06:45 BUN 25 mg/dL (7-18) H 04/02/18 06:45 Creatinine 0.8 mg/dL (0.55-1.3) 04/02/18 06:45 Creat Clearance w eGFR > 60 (>60) 04/02/18 06:45 Calcium 8.3 mg/dL (8.5-10.1) L 04/02/18 06:45 Total Bilirubin 0.3 mg/dL (0.2-1) 04/01/18 15:37 AST 28 U/L (15-37) 04/01/18 15:37 ALT 11 U/L (13-61) L 04/01/18 15:37 Alkaline Phosphatase 82 U/L (45-117) 04/01/18 15:37 Total Protein 6.5 g/dl (6.4-8.2) 04/01/18 15:37 Albumin 3.6 g/dl (3.4-5.0) 04/01/18 15:37 A/P 72yo F wtih PMH COPD on 2L NC at home (3L on exertion), HTN, dyslipidemia and L lung resection, presented to the ER with dyspnea on exertion adn found to be in acute hypoxic respiratory distress 1. Acute hypoxic respiratory distress-currently saturating well on bipap. Can likely remove bipap and place on non-rebreather and titrate down oxygen supplementation as tolerated. just completed pulmonary rehab 2. Acute COPD exacerbation- possibly exacerbated by the weather. has been on beta jagjit for long time however could also be exacerbating breathing. will check flu swab as she was recently in SNF although she is not displaying symptoms assoc with it. just completed abx course. will switch medrol to 60mg Q6H (lungs sound clear but just received treatment), azithro day 2. will liekly require slower course. re-start inhales. nebs valdez and prn. pulmpnary consulted 3. HTN- controlled. cont home medications 4. L lung resection 5. dyslipidemia- statin 6. DVT ppx- lovenox Visit type - Emergency Visit Emergency Visit: Yes ED Registration Date: 04/01/18 Care time: The patient presented to the Emergency Department on the above date and was hospitalized for further evaluation of their emergent condition. - New Patient This patient is new to me today: Yes Date on this admission: 04/02/18 - Critical Care Critical Care patient: No - Discharge Referral Referred to [facility] No
[2018-04-02] MEDS ORDERED: methylPREDNISolone 8 MG TABLET PO SCH (10:00)
[2018-04-02] MEDS ORDERED: TIOTROPIUM BROMIDE 2.5 MCG (SPIRIVA) RESPIMAT INHALER IH SCH (10:00)
[2018-04-02] MEDS ORDERED: predniSONE 20 MG TABLET (UD) PO SCH (10:00)
[2018-04-02] MEDS: AZITHROMYCIN IVPB 500 MG/250 ML BAG IVPB SCH (10:00)
[2018-04-02] MEDS ORDERED: FLU VACCINE QUAD 60 MCG/0.5 ML (MDV 18-19) IM ONE (10:00)
[2018-04-02] MEDS ORDERED: methylPREDNISolone NA SUCC 40 MG/1 ML VIAL IVPUSH SCH (10:00)
[2018-04-02] MEDS: methylPREDNISolone NA SUCC 40 MG/1 ML VIAL IVPUSH SCH ×3 (11:37→21:20)
[2018-04-02] MEDS: METOPROLOL TARTRATE 50 MG TABLET (FP) PO SCH ×2 (11:38→22:21)
[2018-04-02] MEDS: ENOXAPARIN NA (PORCINE) 40 MG/0.4 ML DISP.SYRIN SQ SCH (11:38)
[2018-04-02] MEDS ORDERED: ALBUTEROL SO4 0.083% IH SOL 2.5 MG/3 ML VIAL.NEB. NEB PRN (12:03)
--- NOTE | 2018-04-02 12:03 | CON.PULM ---
Consult Consult Specialty:: PULMONARY Referred by:: Dr. 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 Denies chest pain or palpitations. No fevers, chills or sweats. +cough productive of green sputum and increased wheezing. No leg swelling. Placed on BiPAP with improvement. - History Source History Provided By: Patient, Medical Record Limitations to Obtaining History: No Limitations - Past Medical History Cardio/Vascular: Yes: HTN, Hyperlipdemia Pulmonary: Yes: COPD, O2 Dependent ...: No - Alcohol/Substance Use Hx Alcohol Use: No - Smoking History Smoking history: Former smoker Have you smoked in the past 12 months: No If you are a former smoker, when did you quit?: 4 years ago Home Medications - Allergies Allergies/Adverse Reactions: Allergies Allergy/AdvReac Type Severity Reaction Status Date / Time codeine Allergy Verified 04/01/18 15:08 latex Allergy Verified 04/01/18 15:08 Sulfa (Sulfonamide Allergy Verified 04/01/18 15:08 Antibiotics) - Home Medications Home Medications: Ambulatory Orders Acetaminophen [Mapap] 650 mg PO PRN 10/26/16 Aspirin [ASA -] 81 mg PO DAILY 10/26/16 Citalopram Hydrobromide [Citalopram HBr] 20 mg PO DAILY 10/26/16 Clonazepam [Klonopin] 1 mg PO HS 10/26/16 Docusate Sodium [Colace -] 300 mg PO HS 10/26/16 Metoprolol Tartrate [Lopressor] 100 mg PO BID 10/26/16 Omeprazole 40 mg PO DAILY 10/26/16 Umeclidinium Brm/Vilanterol Tr [Anoro Ellipta 62.5-25 Mcg INH] 1 each IH DAILY 10/26/16 Verapamil HCl 120 mg PO DAILY 10/26/16 clonazePAM [Klonopin -] 0.5 mg PO AM 10/26/16 Albuterol 2.5/Ipratropium 0.5 [Duoneb -] 1 amp NEB Q6H 01/20/18 Albuterol Sulfate [Proair Hfa] 2 puff IH Q4H 01/20/18 Atorvastatin Ca [Lipitor] 40 mg PO HS 01/20/18 Cholecalciferol (Vitamin D3) [Vitamin D3] 1,000 unit PO DAILY 01/20/18 Prednisone See Taper PO ASDIR #36 tablet 01/27/18 Review of Systems - Review of Systems Constitutional: reports: Weakness. denies: Chills, Fever Eyes: denies: Recent Change in Vision HENT: denies: Nasal Congestion, Throat Pain Neck: denies: Stiffness, Tenderness Cardiovascular: reports: Shortness of Breath. denies: Chest Pain, Edema, Palpitations Respiratory: reports: Cough, Exercise Intolerance, SOB, SOB on Exertion, Wheezing. denies: Hemoptysis Gastrointestinal: denies: Abdominal Pain, Nausea, Vomiting Genitourinary: denies: Dysuria, Hematuria Neurological: denies: Dizziness, Headache Endocrine: denies: Unexplained Weight Loss Physical Exam Vital Sings: Vital Signs Temperature 97.1 F L 04/02/18 05:55 Pulse Rate 105 H 04/02/18 05:55 Respiratory Rate 16 04/02/18 05:55 Blood Pressure 102/57 L 04/02/18 05:55 O2 Sat by Pulse Oximetry (%) 98 04/02/18 06:39 Constitutional: Yes: Mild Distress Eyes: Yes: Conjunctiva Clear, EOM Intact HENT: Yes: Atraumatic, Normocephalic Neck: Yes: Supple, Trachea Midline Cardiovascular: Yes: Regular Rate and Rhythm Respiratory: Yes: Rhonchi, Wheezes ...Clubbing: No Gastrointestinal: Yes: Normal Bowel Sounds, Soft. No: Tenderness Edema: No Neurological: Yes: Alert, Oriented Labs: CBC, BMP 04/02/18 06:45 04/02/18 06:45 ABG Results ABG pH 7.28 (7.35-7.45) L 04/01/18 22:05 ABG pCO2 at Pt Temp 76.2 mmHg (35-45) H* D 04/01/18 22:05 ABG pO2 at Pt Temp 189.0 mmHg (70-100) H* D 04/01/18 22:05 ABG HCO3 34.5 meq/L (22-26) H 04/01/18 22:05 ABG O2 Sat (Measured) 99.6 % (90-98.9) H* 04/01/18 22:05 ABG O2 Content 13.8 % vol (15-22) L 04/01/18 22:05 ABG Base Excess 6.4 meq/l (-2-2) H 04/01/18 22:05 Imaging - Results Chest X-ray: Report Reviewed, Image Reviewed (no infiltrates) Problem List - Problems (1) COPD exacerbation Code(s): J44.1 - CHRONIC OBSTRUCTIVE PULMONARY DISEASE W (ACUTE) EXACERBATION (2) Acute on chronic respiratory failure with hypoxia and hypercapnia Code(s): J96.21 - ACUTE AND CHRONIC RESPIRATORY FAILURE WITH HYPOXIA; J96.22 - ACUTE AND CHRONIC RESPIRATORY FAILURE WITH HYPERCAPNIA (3) Lung nodule Code(s): R91.1 - SOLITARY PULMONARY NODULE (4) Hypertension Code(s): I10 - ESSENTIAL (PRIMARY) HYPERTENSION (5) Hyperlipidemia Code(s): E78.5 - HYPERLIPIDEMIA, UNSPECIFIED Assessment/Plan Acute on Chronic Hypoxic and Hypercapneic Respiratory Failure Acute COPD Exacerbation Acute Bronchitis Lung Nodules h/o Carcinoid s/p resection HTN Hyperlipidemia - agree with IV medrol - inhaled bronchodilators standing and PRN - agree with azithromycin - O2 to keep Spo2 >90% - BiPAP as needed to assist in work of breathing - outpt f/u of lung nodules - DVT prophylaxis Thank you for this consult Vel Rausch MD
--- NOTE | 2018-04-02 14:00 | EKG ---
Test Reason : Blood Pressure : / mmHG Vent. Rate : 113 BPM Atrial Rate : 113 BPM P-R Int : 132 ms QRS Dur : 072 ms QT Int : 334 ms P-R-T Axes : 058 018 049 degrees QTc Int : 458 ms SINUS TACHYCARDIA WITH OCCASIONAL PREMATURE VENTRICULAR COMPLEXES OTHERWISE NORMAL ECG WHEN COMPARED WITH ECG OF 01-APR-2018 15:08, PREMATURE VENTRICULAR COMPLEXES ARE NOW PRESENT Confirmed by MD Catarina, Rickey ([id number]) on 04/02/2018 2:00:07 PM Referred By: Confirmed By:Rickey Elmore MD
[2018-04-02] MEDS ORDERED: PT OWN MED DRAWER 7, Y5N ONE (15:26)
[2018-04-02] MEDS: BUDESONIDE/FORMETEROL FUMARATE 160/4.5 mcg INHALER IH SCH ×2 (15:45→22:25)
[2018-04-02] MEDS: VERAPAMIL HCL 120 MG TABLET PO SCH ×2 (15:47→22:21)
[2018-04-02] MEDS: ALBUTEROL SO4 2.5/IPRATROPIUM 0.5 INH SOL 3 ML VIAL.NEB. NEB SCH ×2 (16:19→20:34)
[2018-04-03] MEDS: methylPREDNISolone NA SUCC 40 MG/1 ML VIAL IVPUSH SCH ×4 (03:19→21:24)
[2018-04-03 08:24] LABS: HEMATOCRIT 29.6 % (32.4-45.2); HEMOGLOBIN 9.5 GM/dL (10.7-15.3); MCH 26.2 pg (25.7-33.7); MEAN CELL VOLUME 81.9 fl (80-96); MEAN PLT VOLUME 7.4 fl (7.5-11.1); PLATELET COUNT 215 K/MM3 (134-434); RBC 3.61 M/mm3 (3.60-5.2); RDW 16.8 % (11.6-15.6); WHITE BLOOD COUNT 4.5 K/mm3 (4.0-10.0)
[2018-04-03] MEDS: ALBUTEROL SO4 2.5/IPRATROPIUM 0.5 INH SOL 3 ML VIAL.NEB. NEB SCH ×4 (08:33→16:20)
[2018-04-03 09:16] LABS: ANION GAP 3 MMOL/L (8-16); BLOOD UREA NITROGEN 33 mg/dL (7-18); CALCIUM 8.3 mg/dL (8.5-10.1); CHLORIDE 98 mmol/L (98-107); CO2 40 mmol/L (21-32); CREATININE 0.9 mg/dL (0.55-1.3); GLUCOSE,RANDOM 168 mg/dL (74-106); POTASSIUM 4.8 mmol/L (3.5-5.1); SODIUM 141 mmol/L (136-145)
--- NOTE | 2018-04-03 09:18 | PN ---
Physical Exam: SUBJECTIVE: Patient seen and examined at bedside, States that she is feeling much better and did not cough the whole night, though she did need the BIPAP throughout the night. She denies any chest pain, fevers or chills. OBJECTIVE: Vital Signs Period Temp Pulse Resp BP Sys/Cárdenas Pulse Ox Last 24 Hr 97.5 F-98.2 F 81-102 20-20 120-156/47-84 93-98 GENERAL: The patient is awake, alert,wearing the BIPAP EYES:no scleral icterus NECK: no JVD appreciated LUNGS: slight rhonchi and wheezing B/L HEART: Regular rate and rhythm, S1, S2 without murmur, rub or gallop. ABDOMEN: Soft, nontender, nondistended, normoactive bowel sounds, no guarding, no rebound, no hepatosplenomegaly, no masses. EXTREMITIES: 2+ pulses, warm, well-perfused, trace edema. PSYCH: Normal mood, normal affect. SKIN: Warm, dry, normal turgor, no rashes or lesions noted Laboratory Results - last 24 hr 04/03/18 07:55 WBC 4.5 RBC 3.61 Hgb 9.5 L Hct 29.6 L MCV 81.9 MCH 26.2 MCHC 32.0 RDW 16.8 H Plt Count 215 MPV 7.4 L Active Medications Generic Name Dose Route Start Last Admin Trade Name Freq PRN Reason Stop Dose Admin Albuterol Sulfate 1 amp 04/02/18 12:03 04/02/18 13:28 Ventolin 0.083% Nebulizer Soln - NEB 1 amp Q4H PRN Administration SHORT OF BREATH/WHEEZING Albuterol/Ipratropium 1 amp 04/02/18 16:00 04/03/18 08:33 Duoneb - NEB 1 amp RQID FABIOLA Administration Aspirin 81 mg 04/03/18 10:00 Asa - PO DAILY FABIOLA Atorvastatin Calcium 40 mg 04/03/18 22:00 Lipitor - PO HS FABIOLA Budesonide/Formoterol Fumarate 2 puff 04/02/18 10:00 04/02/18 22:25 Symbicort 160/4.5mcg - IH 2 puff BID FABIOLA Administration Enoxaparin Sodium 40 mg 04/02/18 10:00 04/02/18 11:38 Lovenox - SQ 40 mg DAILY FABIOLA Administration Azithromycin 500 mg in 250 mls @ 250 mls/hr 04/01/18 20:30 04/02/18 10:00 Zithromax 500mg Ivpb (Pre-Docked) IVPB 250 mls/hr DAILY FABIOLA Administration Methylprednisolone Sodium Succinate 60 mg 04/02/18 09:15 04/03/18 03:19 Solu-Medrol - IVPUSH 60 mg Q6H-IV FABIOLA Administration Metoprolol Tartrate 100 mg 04/02/18 10:00 04/02/18 22:21 Lopressor - PO 100 mg BID FABIOLA Administration Verapamil HCl 120 mg 04/02/18 10:00 04/02/18 22:21 Verapamil Hcl PO 120 mg BID FABIOLA Administration ASSESSMENT/PLAN: 72 y/o female with PMH of COPD, HTN, HLD, L lung resection presented to the ED with dyspnea, productive cough found to be acute hypoxic respiratory distress likely due to a COPD exacerbation , now clinically improving. #COPD Exacerbation patient improving however, still requiring BIPAP -try and wean off BIPAP and place on non-rebreather -duonebs standing and PRN -IV methylprednisolone 60 Q6H -azithromycin 500 day 3 -symbicort BID -pulmonary consulted- recs appreciated #HTN BP well controlled -continue with metoprolol 100 BID and verapamil 120 BID -ASA 81 daily #HLD -lipitor 40 daily F/E/N -not on standing fluids -replete electrolytes when necessary -regular diet DVT PPX: lovenox Problem List - Problems (1) COPD exacerbation Code(s): J44.1 - CHRONIC OBSTRUCTIVE PULMONARY DISEASE W (ACUTE) EXACERBATION Visit type - Emergency Visit Emergency Visit: Yes ED Registration Date: 04/02/18 Care time: The patient presented to the Emergency Department on the above date and was hospitalized for further evaluation of their emergent condition. - New Patient This patient is new to me today: No - Critical Care Critical Care patient: No
[2018-04-03] MEDS ORDERED: PT OWN MED DRAWER 7, Y5N ONE ×2 (09:39→21:18)
[2018-04-03] MEDS: ENOXAPARIN NA (PORCINE) 40 MG/0.4 ML DISP.SYRIN SQ SCH (10:08)
[2018-04-03] MEDS: ASPIRIN 81 MG CHEWABLE TABLETS PO SCH (10:08)
[2018-04-03] MEDS: METOPROLOL TARTRATE 50 MG TABLET (FP) PO SCH ×2 (10:08→21:22)
[2018-04-03] MEDS: VERAPAMIL HCL 120 MG TABLET PO SCH ×2 (10:09→21:23)
[2018-04-03] MEDS: AZITHROMYCIN IVPB 500 MG/250 ML BAG IVPB SCH (10:09)
[2018-04-03] MEDS: BUDESONIDE/FORMETEROL FUMARATE 160/4.5 mcg INHALER IH SCH ×2 (10:09→21:23)
--- NOTE | 2018-04-03 12:03 | PN ---
Progress Note (short form) - Note Progress Note: Breathing feels better than on admission, but still with tightness an cough. Used CPAP overnight. (Previously suspected OSAS). Intake & Output 03/31/18 04/01/18 04/02/18 04/03/18 23:59 23:59 23:59 23:59 Intake Total 1100 260 Output Total 0 Balance 1100 260 Weight 183 lb 9 oz Last Vital Signs Temp Pulse Resp BP Pulse Ox 98.2 F 91 H 20 120/65 93 L 04/03/18 06:00 04/03/18 08:35 04/03/18 06:00 04/03/18 06:00 04/03/18 08:35 Active Medications Albuterol Sulfate (Ventolin 0.083% Nebulizer Soln -) 1 amp NEB Q4H PRN PRN Reason: SHORT OF BREATH/WHEEZING Last Admin: 04/02/18 13:28 Dose: 1 amp Albuterol/Ipratropium (Duoneb -) 1 amp NEB RQID [facility] Last Admin: 04/03/18 08:33 Dose: 1 amp Aspirin (Asa -) 81 mg PO DAILY [facility] Last Admin: 04/03/18 10:08 Dose: 81 mg Atorvastatin Calcium (Lipitor -) 40 mg PO [facility] Budesonide/Formoterol Fumarate (Symbicort 160/4.5mcg -) 2 puff IH BID [facility] Last Admin: 04/03/18 10:09 Dose: 2 puff Enoxaparin Sodium (Lovenox -) 40 mg SQ DAILY [facility] Last Admin: 04/03/18 10:08 Dose: 40 mg Azithromycin (Zithromax 500mg Ivpb (Pre-Docked)) 500 mg in 250 mls @ 250 mls/ hr IVPB DAILY [facility] Last Admin: 04/03/18 10:09 Dose: 250 mls/hr Methylprednisolone Sodium Succinate (Solu-Medrol -) 60 mg IVPUSH Q6H-IV [facility] Last Admin: 04/03/18 10:07 Dose: 60 mg Metoprolol Tartrate (Lopressor -) 100 mg PO BID [facility] Last Admin: 04/03/18 10:08 Dose: 100 mg Verapamil HCl (Verapamil Hcl) 120 mg PO BID [facility] Last Admin: 04/03/18 10:09 Dose: 120 mg Constitutional: Yes: Mildly tachypneic at rest Eyes: Yes: Conjunctiva Clear, EOM Intact HENT: Yes: Atraumatic, Normocephalic Neck: Yes: Supple, Trachea Midline Cardiovascular: Yes: Regular Rate and Rhythm Respiratory: Yes: Rhonchi, Wheezes ...Clubbing: No Gastrointestinal: Yes: Normal Bowel Sounds, Soft. No: Tenderness Edema: No Neurological: Yes: Alert, Oriented Labs: Laboratory Results - last 24 hr 04/03/18 04/03/18 07:55 07:55 WBC 4.5 RBC 3.61 Hgb 9.5 L Hct 29.6 L MCV 81.9 MCH 26.2 MCHC 32.0 RDW 16.8 H Plt Count 215 MPV 7.4 L Sodium 141 Potassium 4.8 Chloride 98 Carbon Dioxide 40 H Anion Gap 3 L BUN 33 H Creatinine 0.9 Creat Clearance w eGFR > 60 Random Glucose 168 H Calcium 8.3 L Problem List - Problems (1) COPD exacerbation Code(s): J44.1 - CHRONIC OBSTRUCTIVE PULMONARY DISEASE W (ACUTE) EXACERBATION (2) Acute on chronic respiratory failure with hypoxia and hypercapnia Code(s): J96.21 - ACUTE AND CHRONIC RESPIRATORY FAILURE WITH HYPOXIA; J96.22 - ACUTE AND CHRONIC RESPIRATORY FAILURE WITH HYPERCAPNIA (3) Lung nodule Code(s): R91.1 - SOLITARY PULMONARY NODULE (4) Hypertension Code(s): I10 - ESSENTIAL (PRIMARY) HYPERTENSION (5) Hyperlipidemia Code(s): E78.5 - HYPERLIPIDEMIA, UNSPECIFIED Assessment/Plan Acute on Chronic Hypoxic and Hypercapneic Respiratory Failure Acute COPD Exacerbation Acute Bronchitis Lung Nodules h/o Carcinoid s/p resection HTN Hyperlipidemia - Continue IV medrol - inhaled bronchodilators standing and PRN - Azithromycin - O2 to keep Spo2 >90% - NIPPV as needed to assist in work of breathing - outpatient f/u of lung nodules - DVT prophylaxis - No smoking Dr Ruano
--- NOTE | 2018-04-03 13:48 | PN ---
Teaching Attending Note Name of Resident: Mely Storey ATTENDING PHYSICIAN STATEMENT I saw and evaluated the patient. I reviewed the resident's note and discussed the case with the resident. I agree with the resident's findings and plan as documented. SUBJECTIVE:slight improvement yesterday. cough is no longer productive. have not walked past the bedside commode. states she sleeps better with Bipap overnight and use to have machine but was recently taken away from her. denies CP, fever, chills, N/V/C/D OBJECTIVE: Last Vital Signs Temp Pulse Resp BP Pulse Ox 98.2 F 91 H 20 120/65 93 L 04/03/18 06:00 04/03/18 08:35 04/03/18 06:00 04/03/18 06:00 04/03/18 08:35 General NAD Lungs CTA B/l no wheezing/rales/rhojnchi ASSESSMENT AND PLAN: 72yo F wtih PMH COPD on 2L NC at home (3L on exertion), HTN, dyslipidemia and L lung resection, presented to the ER with dyspnea on exertion adn found to be in acute hypoxic respiratory distress 1. Acute hypoxic respiratory distress-currently saturating 94% on 2L NC. spoke with Pulmonary about assessing if she would require Bipap at bedtime. likely component of JANETTE and would at least require cpap machine. chest PT. supplemental oxygen as needed to maintain spO2 > 88% 2. Acute COPD exacerbation- possibly exacerbated by the weather. clinically improved. will reduce medrol to Q8H. will have PT eval to see breating on exertion. On day 3. on nebs valdez and prn. pulmonary consulted 3. HTN- controlled. cont home medications 4. L lung resection 5. dyslipidemia- statin 6. DVT ppx- lovenox
--- NOTE | 2018-04-03 15:08 | EKG ---
Test Reason : Blood Pressure : / mmHG Vent. Rate : 121 BPM Atrial Rate : 121 BPM P-R Int : 118 ms QRS Dur : 070 ms QT Int : 310 ms P-R-T Axes : 060 044 057 degrees QTc Int : 440 ms SINUS TACHYCARDIA NONSPECIFIC ST AND T WAVE ABNORMALITY ABNORMAL ECG WHEN COMPARED WITH ECG OF 22-JAN-2018 15:52, NO SIGNIFICANT CHANGE WAS FOUND Confirmed by DAVID BARRIENTOS MD ([id number]) on 04/03/2018 3:08:14 PM Referred By: Confirmed By:DAVID BARRIENTOS MD
[2018-04-03] MEDS ORDERED: methylPREDNISolone NA SUCC 40 MG/1 ML VIAL IVPUSH SCH (18:00)
[2018-04-03] MEDS: ATORVASTATIN CA 40 MG TABLET (FP) PO SCH (21:23)
[2018-04-04] MEDS: methylPREDNISolone NA SUCC 40 MG/1 ML VIAL IVPUSH SCH ×3 (02:06→17:54)
[2018-04-04 07:38] LABS: HEMATOCRIT 29.5 % (32.4-45.2); HEMOGLOBIN 9.3 GM/dL (10.7-15.3); MCH 25.6 pg (25.7-33.7); MCHC 31.3 g/dl (32.0-36.0); MEAN CELL VOLUME 81.7 fl (80-96); MEAN PLT VOLUME 7.4 fl (7.5-11.1); PLATELET COUNT 198 K/MM3 (134-434); RBC 3.61 M/mm3 (3.60-5.2); RDW 16.7 % (11.6-15.6); WHITE BLOOD COUNT 5.7 K/mm3 (4.0-10.0)
[2018-04-04 08:01] LABS: ANION GAP 5 MMOL/L (8-16); BLOOD UREA NITROGEN 35 mg/dL (7-18); CALCIUM 8.2 mg/dL (8.5-10.1); CHLORIDE 98 mmol/L (98-107); CO2 38 mmol/L (21-32); CREATININE 0.9 mg/dL (0.55-1.3); GLUCOSE,RANDOM 179 mg/dL (74-106); POTASSIUM 4.2 mmol/L (3.5-5.1); SODIUM 141 mmol/L (136-145)
[2018-04-04] MEDS: ALBUTEROL SO4 2.5/IPRATROPIUM 0.5 INH SOL 3 ML VIAL.NEB. NEB SCH (08:59)
[2018-04-04] MEDS ORDERED: PT OWN MED DRAWER 7, Y5N ONE ×4 (09:24→21:20)
[2018-04-04] MEDS: AZITHROMYCIN IVPB 500 MG/250 ML BAG IVPB SCH (11:25)
--- NOTE | 2018-04-04 11:33 | PN ---
Physical Exam: SUBJECTIVE: Patient seen and examined at bedside. Patient says she slept well overnight- she used BIPAP the whole night and barely coughed. However, she is not really walking around too much- but she thinks her breathing is getting better. She denies any chest pain/N/V fevers or chills OBJECTIVE: Vital Signs Period Temp Pulse Resp BP Sys/Cárdenas Pulse Ox Last 24 Hr 97.6 F-98.6 F 80-96 16-22 102-129/53-84 93-98 GENERAL: The patient is awake, alert, in no acute distress, wearing her BIPAP. EYES: no scleral icterus. NECK: no JVD appreciated LUNGS:slight wheezing in the upper lobes. HEART: Regular rate and rhythm, S1, S2 without murmur, rub or gallop. ABDOMEN: Soft, nontender, nondistended, normoactive bowel sounds, no guarding, no rebound, no hepatosplenomegaly, no masses. EXTREMITIES: 2+ pulses, warm, well-perfused, trace edema. . PSYCH: Normal mood, normal affect. SKIN: Warm, dry, normal turgor, no rashes or lesions noted Laboratory Results - last 24 hr 04/04/18 04/04/18 06:30 06:30 WBC 5.7 RBC 3.61 Hgb 9.3 L Hct 29.5 L MCV 81.7 MCH 25.6 L MCHC 31.3 L RDW 16.7 H Plt Count 198 MPV 7.4 L Sodium 141 Potassium 4.2 Chloride 98 Carbon Dioxide 38 H Anion Gap 5 L BUN 35 H Creatinine 0.9 Creat Clearance w eGFR > 60 Random Glucose 179 H Calcium 8.2 L Active Medications Generic Name Dose Route Start Last Admin Trade Name Freq PRN Reason Stop Dose Admin Albuterol Sulfate 1 amp 04/02/18 12:03 04/02/18 13:28 Ventolin 0.083% Nebulizer Soln - NEB 1 amp Q4H PRN Administration SHORT OF BREATH/WHEEZING Albuterol/Ipratropium 1 amp 04/02/18 16:00 04/04/18 08:59 Duoneb - NEB 1 amp RQID FABIOLA Administration Aspirin 81 mg 04/03/18 10:00 04/03/18 10:08 Asa - PO 81 mg DAILY FABIOLA Administration Atorvastatin Calcium 40 mg 04/03/18 22:00 04/03/18 21:23 Lipitor - PO 40 mg HS FABIOLA Administration Budesonide/Formoterol Fumarate 2 puff 04/02/18 10:00 04/03/18 21:23 Symbicort 160/4.5mcg - IH 2 puff BID FABIOLA Administration Enoxaparin Sodium 40 mg 04/02/18 10:00 04/03/18 10:08 Lovenox - SQ 40 mg DAILY FABIOLA Administration Azithromycin 500 mg in 250 mls @ 250 mls/hr 04/01/18 20:30 04/04/18 11:25 Zithromax 500mg Ivpb (Pre-Docked) IVPB 250 mls/hr DAILY FABIOLA Administration Methylprednisolone Sodium Succinate 60 mg 04/04/18 18:00 Solu-Medrol - IVPUSH Q8H-IV FABIOLA Metoprolol Tartrate 100 mg 04/02/18 10:00 04/03/18 21:22 Lopressor - PO 100 mg BID FABIOLA Administration Pantoprazole Sodium 40 mg 04/04/18 10:00 Protonix - PO DAILY FABIOLA Verapamil HCl 120 mg 04/02/18 10:00 04/03/18 21:23 Verapamil Hcl PO 120 mg BID FABIOLA Administration ASSESSMENT/PLAN: 72 y/o female with PMH of COPD, HTN, HLD, L lung resection presented to the ED with dyspnea, productive cough found to be acute hypoxic respiratory distress likely due to a COPD exacerbation , now clinically improving. #COPD Exacerbation patient improving however, still requiring BIPAP -try and wean off BIPAP and place on non-rebreather -duonebs standing and PRN -IV methylprednisolone 60 Q8H -azithromycin 500 day 4 -symbicort BID -pulmonary consulted- recs appreciated -will encourage walking; PT eval #HTN BP well controlled -continue with metoprolol 100 BID and verapamil 120 BID -ASA 81 daily #HLD -lipitor 40 daily F/E/N -not on standing fluids -replete electrolytes when necessary -regular diet DVT PPX: lovenox Problem List - Problems (1) COPD exacerbation Code(s): J44.1 - CHRONIC OBSTRUCTIVE PULMONARY DISEASE W (ACUTE) EXACERBATION Visit type - Emergency Visit Emergency Visit: Yes ED Registration Date: 04/02/18 Care time: The patient presented to the Emergency Department on the above date and was hospitalized for further evaluation of their emergent condition. - New Patient This patient is new to me today: No - Critical Care Critical Care patient: No
[2018-04-04] MEDS: ASPIRIN 81 MG CHEWABLE TABLETS PO SCH (12:05)
[2018-04-04] MEDS: ENOXAPARIN NA (PORCINE) 40 MG/0.4 ML DISP.SYRIN SQ SCH (12:05)
[2018-04-04] MEDS: METOPROLOL TARTRATE 50 MG TABLET (FP) PO SCH ×2 (12:05→21:23)
[2018-04-04] MEDS: VERAPAMIL HCL 120 MG TABLET PO SCH ×2 (12:06→21:24)
[2018-04-04] MEDS: PANTOPRAZOLE 40 MG TABLET (FP) PO SCH (12:06)
[2018-04-04] MEDS: BUDESONIDE/FORMETEROL FUMARATE 160/4.5 mcg INHALER IH SCH ×2 (12:12→21:25)
--- NOTE | 2018-04-04 12:57 | PN ---
Teaching Attending Note Name of Resident: Mely Storey ATTENDING PHYSICIAN STATEMENT I saw and evaluated the patient. I reviewed the resident's note and discussed the case with the resident. I agree with the resident's findings and plan as documented. SUBJECTIVE:was feeling worse in the evening last night but woke up feeling much better. denies CP, SOB, fever, chills, N/V/C/D. has not walked past the commode but no dyspnea OBJECTIVE: Last Vital Signs Temp Pulse Resp BP Pulse Ox 97.6 F 88 16 114/58 L 97 04/04/18 09:58 04/04/18 09:58 04/04/18 09:58 04/04/18 09:58 04/04/18 10:41 General NAD Lungs CTA B/l no wheezing/rales/rhojnchi ASSESSMENT AND PLAN: 72yo F wtih PMH COPD on 2L NC at home (3L on exertion), HTN, dyslipidemia and L lung resection, presented to the ER with dyspnea on exertion adn found to be in acute hypoxic respiratory distress 1. Acute hypoxic respiratory distress-currently saturating 94% on 2L NC. medrol was increased yesterday but will decrease again today and evaluate for improvement. PT to get pt up and moving to see improvement. may benefit from bipap HS on discharge. chest PT. supplemental oxygen as needed to maintain spO2 > 88% 2. Acute COPD exacerbation- possibly exacerbated by the weather. clinically improved. will reduce medrol to Q8H. will have PT eval to see breathing on exertion. On ith day 4. on nebs valdez and prn. pulmonary consulted 3. +UCX- liekly colonization. pt is asymptomatic. with <100,000 colonies. no indication for abx 4. HTN- controlled. cont home medications 5. L lung resection 6. dyslipidemia- statin 7. DVT ppx- lovenox
[2018-04-04] MEDS: ALBUTEROL SO4 0.083% IH SOL 2.5 MG/3 ML VIAL.NEB. NEB SCH ×2 (13:00→20:05)
[2018-04-04] MEDS: TIOTROPIUM BROMIDE 2.5 MCG (SPIRIVA) RESPIMAT INHALER IH SCH (14:53)
[2018-04-04] MEDS: ATORVASTATIN CA 40 MG TABLET (FP) PO SCH (21:23)
[2018-04-05] MEDS: methylPREDNISolone NA SUCC 40 MG/1 ML VIAL IVPUSH SCH ×3 (01:19→17:12)
[2018-04-05] MEDS: ALBUTEROL SO4 0.083% IH SOL 2.5 MG/3 ML VIAL.NEB. NEB SCH ×3 (08:00→21:50)
--- NOTE | 2018-04-05 10:06 | PN ---
Physical Exam: SUBJECTIVE: Patient seen and examined at bedside. Patient states that she wore the BIPAP all day yesterday and was only to take it off for about 15 mins before feeling very weak , fatigued, and out of breath. She feels that she is getting worse- she can only walk from her bed to the comode before getting very winded. However, she does say that she has no more cough. She denies any chest pain, nausea/vomiting, fevers or chills. OBJECTIVE: Vital Signs Period Temp Pulse Resp BP Sys/Cárdenas Pulse Ox Last 24 Hr 97.3 F-97.7 F 68-88 16-20 99-130/51-79 97-97 GENERAL: The patient is awake wearing the BIPAP, . EYES: no scleral icterus . . NECK:no JVD, no lypmhadenopathy appreciated LUNGS: using BIPAP- slight wheezes B/L; poor inspiratory effort. HEART: Regular rate and rhythm, S1, S2 without murmur, rub or gallop. ABDOMEN: Soft, nontender, nondistended, normoactive bowel sounds, no guarding, no rebound, no hepatosplenomegaly, no masses. EXTREMITIES: 2+ pulses, warm, well-perfused, no edema. . PSYCH: Normal mood, normal affect. SKIN: Warm, dry, normal turgor, no rashes or lesions noted Active Medications Generic Name Dose Route Start Last Admin Trade Name Freq PRN Reason Stop Dose Admin Albuterol Sulfate 1 amp 04/02/18 12:03 04/02/18 13:28 Ventolin 0.083% Nebulizer Soln - NEB 1 amp Q4H PRN Administration SHORT OF BREATH/WHEEZING Albuterol Sulfate 1 amp 04/04/18 14:00 04/05/18 08:00 Ventolin 0.083% Nebulizer Soln - NEB 1 amp RTID FABIOLA Administration Aspirin 81 mg 04/03/18 10:00 04/04/18 12:05 Asa - PO 81 mg DAILY FABIOLA Administration Atorvastatin Calcium 40 mg 04/03/18 22:00 04/04/18 21:23 Lipitor - PO 40 mg HS FABIOLA Administration Budesonide/Formoterol Fumarate 2 puff 04/02/18 10:00 04/04/18 21:25 Symbicort 160/4.5mcg - IH 2 puff BID FABIOLA Administration Enoxaparin Sodium 40 mg 04/02/18 10:00 04/04/18 12:05 Lovenox - SQ 40 mg DAILY FABIOLA Administration Azithromycin 500 mg in 250 mls @ 250 mls/hr 04/01/18 20:30 04/04/18 11:25 Zithromax 500mg Ivpb (Pre-Docked) IVPB 250 mls/hr DAILY FABIOLA Administration Methylprednisolone Sodium Succinate 60 mg 04/04/18 18:00 04/05/18 01:19 Solu-Medrol - IVPUSH 60 mg Q8H-IV FABIOLA Administration Metoprolol Tartrate 100 mg 04/02/18 10:00 04/04/18 21:23 Lopressor - PO 100 mg BID FABIOLA Administration Pantoprazole Sodium 40 mg 04/04/18 10:00 04/04/18 12:06 Protonix - PO 40 mg DAILY FABIOLA Administration Tiotropium [place] 2 puff 04/04/18 11:45 04/04/18 14:53 Spiriva Respimat IH Not Given DAILY FABIOLA Verapamil HCl 120 mg 04/02/18 10:00 04/04/18 21:24 Verapamil Hcl PO 120 mg BID FABIOLA Administration ASSESSMENT/PLAN: 72 y/o female with PMH of COPD, HTN, HLD, L lung resection presented to the ED with dyspnea, productive cough found to be acute hypoxic respiratory distress likely due to a COPD exacerbation #COPD Exacerbation patient using BIPAP all throughout the day as she feels winded and fatigued without it -try and wean off BIPAP and monitor 02 saturations -duonebs standing and PRN -IV methylprednisolone 40 Q8H -azithromycin 500 day 4 -symbicort BID -pulmonary consulted- recs appreciated -will encourage walking; PT eval #HTN BP well controlled -continue with metoprolol 100 BID and verapamil 120 BID -ASA 81 daily #HLD -lipitor 40 daily F/E/N -not on standing fluids -replete electrolytes when necessary -regular diet DVT PPX: lovenox Problem List - Problems (1) COPD exacerbation Code(s): J44.1 - CHRONIC OBSTRUCTIVE PULMONARY DISEASE W (ACUTE) EXACERBATION Visit type - Emergency Visit Emergency Visit: Yes ED Registration Date: 04/02/18 Care time: The patient presented to the Emergency Department on the above date and was hospitalized for further evaluation of their emergent condition. - New Patient This patient is new to me today: No - Critical Care Critical Care patient: No
[2018-04-05] MEDS ORDERED: PT OWN MED DRAWER 7, Y5N ONE ×2 (10:12→20:43)
[2018-04-05] MEDS: AZITHROMYCIN IVPB 500 MG/250 ML BAG IVPB SCH (10:17)
[2018-04-05] MEDS: ENOXAPARIN NA (PORCINE) 40 MG/0.4 ML DISP.SYRIN SQ SCH (10:17)
[2018-04-05] MEDS: PANTOPRAZOLE 40 MG TABLET (FP) PO SCH (10:17)
[2018-04-05] MEDS: VERAPAMIL HCL 120 MG TABLET PO SCH ×2 (10:18→21:13)
[2018-04-05] MEDS: ASPIRIN 81 MG CHEWABLE TABLETS PO SCH (10:18)
[2018-04-05] MEDS: METOPROLOL TARTRATE 50 MG TABLET (FP) PO SCH ×2 (10:18→21:12)
[2018-04-05] MEDS: BUDESONIDE/FORMETEROL FUMARATE 160/4.5 mcg INHALER IH SCH ×2 (10:19→21:13)
[2018-04-05] MEDS: TIOTROPIUM BROMIDE 2.5 MCG (SPIRIVA) RESPIMAT INHALER IH SCH (10:19)
--- NOTE | 2018-04-05 12:55 | PN ---
Progress Note, Physician History of Present Illness: PULMONARY AWAKE ON BIPAP,DYSPNEIC WITH MIN EXERTION - Current Medication List Current Medications: Active Medications Albuterol Sulfate (Ventolin 0.083% Nebulizer Soln -) 1 amp NEB Q4H PRN PRN Reason: SHORT OF BREATH/WHEEZING Last Admin: 04/02/18 13:28 Dose: 1 amp Albuterol Sulfate (Ventolin 0.083% Nebulizer Soln -) 1 amp NEB RTID [facility] Last Admin: 04/05/18 08:00 Dose: 1 amp Aspirin (Asa -) 81 mg PO DAILY [facility] Last Admin: 04/05/18 10:18 Dose: 81 mg Atorvastatin Calcium (Lipitor -) 40 mg PO HS [facility] Last Admin: 04/04/18 21:23 Dose: 40 mg Budesonide/Formoterol Fumarate (Symbicort 160/4.5mcg -) 2 puff IH BID [facility] Last Admin: 04/05/18 10:19 Dose: 2 puff Enoxaparin Sodium (Lovenox -) 40 mg SQ DAILY [facility] Last Admin: 04/05/18 10:17 Dose: 40 mg Azithromycin (Zithromax 500mg Ivpb (Pre-Docked)) 500 mg in 250 mls @ 250 mls/ hr IVPB DAILY [facility] Last Admin: 04/05/18 10:17 Dose: 250 mls/hr Methylprednisolone Sodium Succinate (Solu-Medrol -) 40 mg IVPUSH Q8H-IV FABIOLA Metoprolol Tartrate (Lopressor -) 100 mg PO BID [facility] Last Admin: 04/05/18 10:18 Dose: 100 mg Pantoprazole Sodium (Protonix -) 40 mg PO DAILY [facility] Last Admin: 04/05/18 10:17 Dose: 40 mg Tiotropium [place] (Spiriva Respimat) 2 puff IH DAILY [facility] Last Admin: 04/05/18 10:19 Dose: 2 puff Verapamil HCl (Verapamil Hcl) 120 mg PO BID [facility] Last Admin: 04/05/18 10:18 Dose: 120 mg - Objective Vital Signs: Vital Signs Temperature 98.4 F 04/05/18 10:00 Pulse Rate 90 04/05/18 10:00 Respiratory Rate 22 H 04/05/18 10:00 Blood Pressure 122/75 04/05/18 10:00 O2 Sat by Pulse Oximetry (%) 97 04/05/18 08:00 Constitutional: Yes: Well Nourished, Calm, Other (MILDLY DYSPNEIC) Eyes: Yes: WNL HENT: Yes: WNL Neck: Yes: WNL Cardiovascular: Yes: Regular Rate and Rhythm, S1, S2 Respiratory: Yes: Diminished, On BiPap Gastrointestinal: Yes: Normal Bowel Sounds, Soft Extremities: Yes: WNL Edema: No Labs: CBC, BMP 04/04/18 06:30 Assessment/Plan Problem List - Problems (1) COPD exacerbation Code(s): J44.1 - CHRONIC OBSTRUCTIVE PULMONARY DISEASE W (ACUTE) EXACERBATION (2) Acute on chronic respiratory failure with hypoxia and hypercapnia Code(s): J96.21 - ACUTE AND CHRONIC RESPIRATORY FAILURE WITH HYPOXIA; J96.22 - ACUTE AND CHRONIC RESPIRATORY FAILURE WITH HYPERCAPNIA (3) Lung nodule Code(s): R91.1 - SOLITARY PULMONARY NODULE (4) Hypertension Code(s): I10 - ESSENTIAL (PRIMARY) HYPERTENSION (5) Hyperlipidemia Code(s): E78.5 - HYPERLIPIDEMIA, UNSPECIFIED Assessment/Plan Acute on Chronic Hypoxic and Hypercapneic Respiratory Failure Acute COPD Exacerbation Acute Bronchitis Lung Nodules h/o Carcinoid s/p resection HTN Hyperlipidemia - IV medrol - inhaled bronchodilators standing and PRN - azithromycin - O2 to keep Spo2 >90% - BiPAP as needed to assist in work of breathing - outpt f/u of lung nodules - DVT prophylaxis - Trilogy device for home pt with chronic hypoxemia/hypercapnea DR HAMMOND
--- NOTE | 2018-04-05 13:14 | PN ---
Teaching Attending Note Name of Resident: Mely Storey ATTENDING PHYSICIAN STATEMENT I saw and evaluated the patient. I reviewed the resident's note and discussed the case with the resident. I agree with the resident's findings and plan as documented. SUBJECTIVE:states her breathing feels better today. sleeps much better with bipap at night. denies Cp, SOB, fever, chills, N/V/C/D OBJECTIVE: Last Vital Signs Temp Pulse Resp BP Pulse Ox 98.4 F 90 22 H 122/75 97 04/05/18 10:00 04/05/18 10:00 04/05/18 10:00 04/05/18 10:00 04/05/18 08:00 General NAD Lungs CTA B/l no wheezing/rales/rhojnchi ASSESSMENT AND PLAN: 72yo F wtih PMH COPD on 2L NC at home (3L on exertion), HTN, dyslipidemia and L lung resection, presented to the ER with dyspnea on exertion adn found to be in acute hypoxic respiratory distress 1. Acute hypoxic respiratory distress-currently saturating 94% on 2L NC. as per RN gets very anxious when removing the bipap machine in the morning. also refuses to get out of bed. encouraged patient need to get OOB and moving. will reduce medrol to 40mg Q8H. may benefit from bipap HS on discharge. chest PT. supplemental oxygen as needed to maintain spO2 > 88% 2. Acute COPD exacerbation- possibly exacerbated by the weather. clinically improved. will reduce medrol to 40mg Q8H. will have PT eval to see breathing on exertion. On azithro day 5. can d/c after today. on nebs valdez and prn. pulmonary consulted 3. +UCX- liekly colonization. pt is asymptomatic. with <100,000 colonies. no indication for abx 4. HTN- controlled. cont home medications 5. Pulmonary nodule- low dose CT chest done . L lung resection 7. dyslipidemia- statin 8. DVT ppx- lovenox
[2018-04-05] MEDS: DOCUSATE SODIUM 100 MG CAPSULE (FP) PO SCH (13:52)
[2018-04-05] MEDS: ATORVASTATIN CA 40 MG TABLET (FP) PO SCH (21:12)
[2018-04-06] MEDS: methylPREDNISolone NA SUCC 40 MG/1 ML VIAL IVPUSH SCH ×4 (02:13→22:21)
[2018-04-06] MEDS: ALBUTEROL SO4 0.083% IH SOL 2.5 MG/3 ML VIAL.NEB. NEB SCH ×3 (08:10→20:53)
[2018-04-06] MEDS ORDERED: PT OWN MED DRAWER 7, Y5N ONE (09:45)
[2018-04-06] MEDS: TIOTROPIUM BROMIDE 2.5 MCG (SPIRIVA) RESPIMAT INHALER IH SCH (09:47)
[2018-04-06] MEDS: ENOXAPARIN NA (PORCINE) 40 MG/0.4 ML DISP.SYRIN SQ SCH (09:48)
[2018-04-06] MEDS: BUDESONIDE/FORMETEROL FUMARATE 160/4.5 mcg INHALER IH SCH ×2 (09:48→22:21)
[2018-04-06] MEDS: ASPIRIN 81 MG CHEWABLE TABLETS PO SCH (09:49)
[2018-04-06] MEDS: VERAPAMIL HCL 120 MG TABLET PO SCH ×2 (09:49→22:21)
[2018-04-06] MEDS: DOCUSATE SODIUM 100 MG CAPSULE (FP) PO SCH (09:49)
[2018-04-06] MEDS: PANTOPRAZOLE 40 MG TABLET (FP) PO SCH (09:49)
[2018-04-06] MEDS: METOPROLOL TARTRATE 50 MG TABLET (FP) PO SCH ×2 (09:49→22:21)
--- NOTE | 2018-04-06 10:31 | PN ---
Progress Note (short form) - Note Progress Note: Currently on NIPPV. Reports using it all night. Was off from 8AM to 10AM. Anxious when off. Breathing slowly improving. Intake & Output 04/03/18 04/04/18 04/05/18 04/06/18 23:59 23:59 23:59 23:59 Intake Total 6397 168 2653 0 Balance 0377 764 0695 0 Last Vital Signs Temp Pulse Resp BP Pulse Ox 97.4 F L 71 22 H 117/72 98 04/06/18 06:00 04/06/18 06:00 04/06/18 06:00 04/06/18 06:00 04/06/18 06:25 Active Medications Albuterol Sulfate (Ventolin 0.083% Nebulizer Soln -) 1 amp NEB Q4H PRN PRN Reason: SHORT OF BREATH/WHEEZING Last Admin: 04/02/18 13:28 Dose: 1 amp Albuterol Sulfate (Ventolin 0.083% Nebulizer Soln -) 1 amp NEB RTID [facility] Last Admin: 04/05/18 21:50 Dose: 1 amp Aspirin (Asa -) 81 mg PO DAILY [facility] Last Admin: 04/06/18 09:49 Dose: 81 mg Atorvastatin Calcium (Lipitor -) 40 mg PO HS [facility] Last Admin: 04/05/18 21:12 Dose: 40 mg Budesonide/Formoterol Fumarate (Symbicort 160/4.5mcg -) 2 puff IH BID [facility] Last Admin: 04/06/18 09:48 Dose: 2 puff Docusate Sodium (Colace -) 100 mg PO DAILY [facility] Last Admin: 04/06/18 09:49 Dose: 100 mg Enoxaparin Sodium (Lovenox -) 40 mg SQ DAILY [facility] Last Admin: 04/06/18 09:48 Dose: 40 mg Methylprednisolone Sodium Succinate (Solu-Medrol -) 40 mg IVPUSH Q12H [facility] Last Admin: 04/06/18 09:57 Dose: Not Given Metoprolol Tartrate (Lopressor -) 100 mg PO BID [facility] Last Admin: 04/06/18 09:49 Dose: 100 mg Pantoprazole Sodium (Protonix -) 40 mg PO DAILY [facility] Last Admin: 04/06/18 09:49 Dose: 40 mg Tiotropium [place] (Spiriva Respimat) 2 puff IH DAILY [facility] Last Admin: 04/06/18 09:47 Dose: 2 puff Verapamil HCl (Verapamil Hcl) 120 mg PO BID [facility] Last Admin: 04/06/18 09:49 Dose: 120 mg Constitutional: Yes: NAD on NIPPV Eyes: Yes: Conjunctiva Clear, EOM Intact HENT: Yes: Atraumatic, Normocephalic Neck: Yes: Supple, Trachea Midline Cardiovascular: Yes: Regular Rate and Rhythm Respiratory: Yes: Rhonchi, Less Wheezes ...Clubbing: No Gastrointestinal: Yes: Normal Bowel Sounds, Soft. No: Tenderness Edema: No Neurological: Yes: Alert, Oriented Labs: Problem List - Problems (1) COPD exacerbation Code(s): J44.1 - CHRONIC OBSTRUCTIVE PULMONARY DISEASE W (ACUTE) EXACERBATION (2) Acute on chronic respiratory failure with hypoxia and hypercapnia Code(s): J96.21 - ACUTE AND CHRONIC RESPIRATORY FAILURE WITH HYPOXIA; J96.22 - ACUTE AND CHRONIC RESPIRATORY FAILURE WITH HYPERCAPNIA (3) Lung nodule Code(s): R91.1 - SOLITARY PULMONARY NODULE (4) Hypertension Code(s): I10 - ESSENTIAL (PRIMARY) HYPERTENSION (5) Hyperlipidemia Code(s): E78.5 - HYPERLIPIDEMIA, UNSPECIFIED Assessment/Plan Acute on Chronic Hypoxic and Hypercapneic Respiratory Failure Acute COPD Exacerbation Acute Bronchitis Lung Nodules h/o Carcinoid s/p resection HTN Hyperlipidemia - Wean IV medrol - inhaled bronchodilators standing and PRN - Azithromycin - O2 to keep Spo2 >90% - NIPPV as needed to assist in work of breathing: advised patient to attempt to spend daytime hours on NIPPV support - outpatient f/u of lung nodules - DVT prophylaxis - No smoking Dr Ruano
--- NOTE | 2018-04-06 13:08 | PN ---
Physical Exam: SUBJECTIVE: Patient seen and examined at bedside. states she was coughing a lot during the night, but the color is clear. she was off BIPAP this morning but states she gets very anxious when she gets off of it. SHe walked about 8 feet yesterday with PT before getting faitgued and winded. she denies any CP,N/V? fevers or chills OBJECTIVE: Vital Signs Period Temp Pulse Resp BP Sys/Cárdenas Pulse Ox Last 24 Hr 97.3 F-97.8 F 71-85 18-22 110-123/66-75 97-98 GENERAL: The patient is awake, alert, wearing the BIPAP in some distress. EYES: no scleral icterus NECK: Tno JVD, no lymphadenopathy appreciated. LUNGS: B/L wheezing particularly in the lower lobes HEART: Regular rate and rhythm, S1, S2 without murmur, rub or gallop. ABDOMEN: Soft, nontender, nondistended, normoactive bowel sounds, no guarding, no rebound, no hepatosplenomegaly, no masses. EXTREMITIES: 2+ pulses, warm, well-perfused, trace edema B/L. . PSYCH: Normal mood, normal affect. SKIN: Warm, dry, normal turgor, no rashes or lesions noted Active Medications Generic Name Dose Route Start Last Admin Trade Name Freq PRN Reason Stop Dose Admin Albuterol Sulfate 1 amp 04/02/18 12:03 04/02/18 13:28 Ventolin 0.083% Nebulizer Soln - NEB 1 amp Q4H PRN Administration SHORT OF BREATH/WHEEZING Albuterol Sulfate 1 amp 04/04/18 14:00 04/06/18 08:10 Ventolin 0.083% Nebulizer Soln - NEB 1 amp RTID [facility] Administration Aspirin 81 mg 04/03/18 10:00 04/06/18 09:49 Asa - PO 81 mg DAILY [facility] Administration Atorvastatin Calcium 40 mg 04/03/18 22:00 04/05/18 21:12 Lipitor - PO 40 mg HS [facility] Administration Budesonide/Formoterol Fumarate 2 puff 04/02/18 10:00 04/06/18 09:48 Symbicort 160/4.5mcg - IH 2 puff BID [facility] Administration Docusate Sodium 100 mg 04/05/18 13:15 11/01/18 09:49 Colace - PO 100 mg DAILY [facility] Administration Enoxaparin Sodium 40 mg 04/02/18 10:00 04/06/18 09:48 Lovenox - SQ 40 mg DAILY [facility] Administration Methylprednisolone Sodium Succinate 40 mg 04/06/18 10:00 04/06/18 09:57 Solu-Medrol - IVPUSH Not Given Q12H [facility] Metoprolol Tartrate 100 mg 04/02/18 10:00 04/06/18 09:49 Lopressor - PO 100 mg BID [facility] Administration Pantoprazole Sodium 40 mg 04/04/18 10:00 04/06/18 09:49 Protonix - PO 40 mg DAILY [facility] Administration Tiotropium [place] 2 puff 04/04/18 11:45 04/06/18 09:47 Spiriva Respimat IH 2 puff DAILY [facility] Administration Verapamil HCl 120 mg 04/02/18 10:00 04/06/18 09:49 Verapamil Hcl PO 120 mg BID [facility] Administration ASSESSMENT/PLAN: 72 y/o female with PMH of COPD, HTN, HLD, L lung resection presented to the ED with dyspnea, productive cough found to be acute hypoxic respiratory distress likely due to a COPD exacerbation #COPD Exacerbation patient using BIPAP mostly throughout the day as she gets winded and faitgued/ anxious without it -try and wean off BIPAP and monitor 02 saturations -duonebs standing and PRN -IV methylprednisolone 40 BID -symbicort BID -pulmonary consulted- recs appreciated -will encourage walking; PT eval -patient to get trilogy device at home #HTN BP well controlled -continue with metoprolol 100 BID and verapamil 120 BID -ASA 81 daily #HLD -lipitor 40 daily F/E/N -not on standing fluids -replete electrolytes when necessary -regular diet DVT PPX: lovenox Problem List - Problems (1) COPD exacerbation Code(s): J44.1 - CHRONIC OBSTRUCTIVE PULMONARY DISEASE W (ACUTE) EXACERBATION Visit type - Emergency Visit Emergency Visit: Yes ED Registration Date: 04/02/18 Care time: The patient presented to the Emergency Department on the above date and was hospitalized for further evaluation of their emergent condition. - New Patient This patient is new to me today: No - Critical Care Critical Care patient: No
--- NOTE | 2018-04-06 13:31 | PN ---
Teaching Attending Note Name of Resident: Mely Storey ATTENDING PHYSICIAN STATEMENT I saw and evaluated the patient. I reviewed the resident's note and discussed the case with the resident. I agree with the resident's findings and plan as documented. SUBJECTIVE:states her breathing is improved. however she prefers to stay on the bipap. denies Cp, SOB, fever, chills, cough, N/V/c/D OBJECTIVE: Last Vital Signs Temp Pulse Resp BP Pulse Ox 97.4 F L 82 22 H 123/75 98 04/06/18 10:00 04/06/18 10:00 04/06/18 10:00 04/06/18 10:00 04/06/18 09:00 General very anxious Lungs CTA B/l no wheezing/rales/rhojnchi ASSESSMENT AND PLAN: 72yo F wtih PMH COPD on 2L NC at home (3L on exertion), HTN, dyslipidemia and L lung resection, presented to the ER with dyspnea on exertion adn found to be in acute hypoxic respiratory distress 1. Acute hypoxic/hypercapnic respiratory failure-on bipap saturating well. discussed patients anxiety and pts fear to be off the machine. encouraged her to use machine when necessary but believe her breathing problem is worsening from anxiety. reduce medrol to BID. plan to swtich to po tomorrow with slow taper. discussed breathing techniques and patient following up with her therapist for her anxiety. would benefit from Triology device on disharge. Supplemental oxygen as needed to maintain spO2 > 88% 2. Acute COPD exacerbation- possibly exacerbated by the weather. clinically improved. will reduce medrol to BID. on nebs valdez and prn. inhalers. pulmonary consulted 3. Anxiety- believe this patient has severe anxiety which is leading to her difficulty breathing. was on klonopin in the past but was stopped. encouraged patient to discuss alternative medication that can be started for anxiety. discussed breathing and relaxation techniques. 4. +UCX- liekly colonization. pt is asymptomatic. with <100,000 colonies. no indication for abx 5. HTN- controlled. cont home medications 6. Pulmonary nodule- low dose CT chest done. 5mm nodule. will need repeat in 3 months 7. L lung resection 8. dyslipidemia- statin 9. DVT ppx- lovenox 10. ambulated 6 ft with PT yesterday. Unclear if she has any STR days available at this time due to recent SNF stay. spoke with Cm who will inquire from insurance company. anticipate d/c tomorrow. pt was notified of this
[2018-04-06] MEDS: ATORVASTATIN CA 40 MG TABLET (FP) PO SCH (22:21)
[2018-04-07] MEDS: ALBUTEROL SO4 0.083% IH SOL 2.5 MG/3 ML VIAL.NEB. NEB SCH ×3 (07:32→19:32)
[2018-04-07] MEDS ORDERED: predniSONE 20 MG TABLET (UD) PO SCH (10:00)
[2018-04-07] MEDS ORDERED: POLYETHYLENE GLYCOL 3350 119 GM BTL PO SCH (10:00)
[2018-04-07] MEDS ORDERED: PT OWN MED DRAWER 7, Y5N ONE (10:54)
[2018-04-07] MEDS: VERAPAMIL HCL 120 MG TABLET PO SCH (11:00)
[2018-04-07] MEDS: BUDESONIDE/FORMETEROL FUMARATE 160/4.5 mcg INHALER IH SCH (11:01)
[2018-04-07] MEDS: ENOXAPARIN NA (PORCINE) 40 MG/0.4 ML DISP.SYRIN SQ SCH (11:01)
[2018-04-07] MEDS: ASPIRIN 81 MG CHEWABLE TABLETS PO SCH (11:01)
[2018-04-07] MEDS: METOPROLOL TARTRATE 50 MG TABLET (FP) PO SCH (11:01)
[2018-04-07] MEDS: DOCUSATE SODIUM 100 MG CAPSULE (FP) PO SCH (11:01)
[2018-04-07] MEDS: PANTOPRAZOLE 40 MG TABLET (FP) PO SCH (11:01)
[2018-04-07] MEDS: TIOTROPIUM BROMIDE 2.5 MCG (SPIRIVA) RESPIMAT INHALER IH SCH (11:02)
[2018-04-07] MEDS ORDERED: ALBUTEROL SO4 2.5/IPRATROPIUM 0.5 INH SOL 3 ML VIAL.NEB. NEB ONE (13:30)
--- NOTE | 2018-04-07 14:04 | PN ---
Teaching Attending Note Name of Resident: Mely Storey ATTENDING PHYSICIAN STATEMENT I saw and evaluated the patient. I reviewed the resident's note and discussed the case with the resident. I agree with the resident's findings and plan as documented. SUBJECTIVE:feels much better today. denies CP, SOB, fever, chills, cough, N/V/C/ D OBJECTIVE: Last Vital Signs Temp Pulse Resp BP Pulse Ox 98.5 F 80 18 147/79 97 04/07/18 10:00 04/07/18 10:00 04/07/18 10:00 04/07/18 10:00 04/07/18 07:32 General very anxious Lungs CTA B/l no wheezing/rales/rhojnchi ASSESSMENT AND PLAN: 72yo F wtih PMH COPD on 2L NC at home (3L on exertion), HTN, dyslipidemia and L lung resection, presented to the ER with dyspnea on exertion adn found to be in acute hypoxic respiratory distress 1. Acute hypoxic/hypercapnic respiratory failure-saturating well on 2L NC. was off bipap for most of the day. discussed her anxiety and likely playing a large role in difficulty breathing. can transition to prednisone taper. will have triology device delivered to assisted living. plan is to d/c to [facility] where she will use bipap as needed. cont inhalers. Supplemental oxygen as needed to maintain spO2 > 88% 2. Acute COPD exacerbation- possibly exacerbated by the weather. clinically improved. prednisone taper; on nebs valdez and prn. inhalers. pulmonary consulted 3. Anxiety- believe this patient has severe anxiety which is leading to her difficulty breathing. was on klonopin in the past but was stopped. encouraged patient to discuss alternative medication that can be started for anxiety. discussed breathing and relaxation techniques. 4. +UCX- liekly colonization. pt is asymptomatic. with <100,000 colonies. no indication for abx 5. HTN- controlled. cont home medications 6. Pulmonary nodule- low dose CT chest done. 5mm nodule. will need repeat in 3 months 7. L lung resection 8. dyslipidemia- statin 9. DVT ppx- lovenox 10. d/c to [facility]
[2018-04-07 14:36] VITALS: BP 150/82; PULSE 76; TEMP 98.2
--- NOTE | 2018-04-07 14:49 | PN ---
Progress Note, Physician History of Present Illness: PULMONARY ALERT,FEELING BETTER,+ PADILLA - Current Medication List Current Medications: Active Medications Albuterol Sulfate (Ventolin 0.083% Nebulizer Soln -) 1 amp NEB RTID [facility] Last Admin: 04/07/18 14:12 Dose: Not Given Aspirin (Asa -) 81 mg PO DAILY [facility] Last Admin: 04/07/18 11:01 Dose: 81 mg Atorvastatin Calcium (Lipitor -) 40 mg PO HS [facility] Last Admin: 04/06/18 22:21 Dose: 40 mg Budesonide/Formoterol Fumarate (Symbicort 160/4.5mcg -) 2 puff IH BID [facility] Last Admin: 04/07/18 11:01 Dose: 2 puff Docusate Sodium (Colace -) 100 mg PO DAILY [facility] Last Admin: 04/07/18 11:01 Dose: 100 mg Enoxaparin Sodium (Lovenox -) 40 mg SQ DAILY [facility] Last Admin: 04/07/18 11:01 Dose: 40 mg Metoprolol Tartrate (Lopressor -) 100 mg PO BID [facility] Last Admin: 04/07/18 11:01 Dose: 100 mg Pantoprazole Sodium (Protonix -) 40 mg PO DAILY [facility] Last Admin: 04/07/18 11:01 Dose: 40 mg Polyethylene Glycol (Miralax (For Daily Use) -) 17 gm PO DAILY [facility] Last Admin: 04/07/18 11:02 Dose: 17 gm Prednisone (Deltasone -) 40 mg PO DAILY [facility] Last Admin: 04/07/18 11:01 Dose: 40 mg Tiotropium [place] (Spiriva Respimat) 2 puff IH DAILY [facility] Last Admin: 04/07/18 11:02 Dose: 2 puff Verapamil HCl (Verapamil Hcl) 120 mg PO BID [facility] Last Admin: 04/07/18 11:00 Dose: 120 mg - Objective Vital Signs: Vital Signs Temperature 98.2 F 04/07/18 14:34 Pulse Rate 76 04/07/18 14:34 Respiratory Rate 18 04/07/18 14:34 Blood Pressure 150/82 04/07/18 14:34 O2 Sat by Pulse Oximetry (%) 97 04/07/18 09:00 Constitutional: Yes: Well Nourished, Calm Eyes: Yes: WNL HENT: Yes: WNL Neck: Yes: WNL Cardiovascular: Yes: Regular Rate and Rhythm, S1, S2 Respiratory: Yes: Diminished Gastrointestinal: Yes: Normal Bowel Sounds, Soft Extremities: Yes: WNL Edema: No Labs: CBC, BMP Assessment/Plan Problem List - Problems (1) COPD exacerbation Code(s): J44.1 - CHRONIC OBSTRUCTIVE PULMONARY DISEASE W (ACUTE) EXACERBATION (2) Acute on chronic respiratory failure with hypoxia and hypercapnia Code(s): J96.21 - ACUTE AND CHRONIC RESPIRATORY FAILURE WITH HYPOXIA; J96.22 - ACUTE AND CHRONIC RESPIRATORY FAILURE WITH HYPERCAPNIA (3) Lung nodule Code(s): R91.1 - SOLITARY PULMONARY NODULE (4) Hypertension Code(s): I10 - ESSENTIAL (PRIMARY) HYPERTENSION (5) Hyperlipidemia Code(s): E78.5 - HYPERLIPIDEMIA, UNSPECIFIED Assessment/Plan Acute on Chronic Hypoxic and Hypercapneic Respiratory Failure Acute COPD Exacerbation improved Acute Bronchitis improved Lung Nodules h/o Carcinoid s/p resection HTN Hyperlipidemia - Prednisone - inhaled bronchodilators standing and PRN - azithromycin - O2 to keep Spo2 >90% - outpt f/u of lung nodules - DVT prophylaxis - Trilogy device for home pt with chronic hypoxemia/hypercapnea - short term rehab DR HAMMOND
== END 2018-04-07 19:59 | DRG 189 ==
LOC: JER 14:52 → JERBED 19:20 → J8W 23:33 → OBSVTOIN 04-02 09:08
PROVIDERS: ADMIT Internal Medicine; ATTEND Internal Medicine
PROC: 5A09457 Assistance with Respiratory Ventilation, 24-96 Consecutive Hours, Continuous Positive Airway Pressure (ICD-10-PCS; principal; 2018-04-01)
DX: J96.21 Acute and chronic respiratory failure with hypoxia (principal); J44.1 Chronic obstructive pulmonary disease with (acute) exacerbation; J44.0 Chronic obstructive pulmonary disease with (acute) lower respiratory infection; J96.22 Acute and chronic respiratory failure with hypercapnia; Z90.710 Acquired absence of both cervix and uterus; J20.9 Acute bronchitis, unspecified; Z99.81 Dependence on supplemental oxygen; I10 Essential (primary) hypertension; E78.5 Hyperlipidemia, unspecified; M19.90 Unspecified osteoarthritis, unspecified site; Z90.2 Acquired absence of lung [part of]; R91.8 Other nonspecific abnormal finding of lung field; Z87.891 Personal history of nicotine dependence; Z85.41 Personal history of malignant neoplasm of cervix uteri
CPT/HCPCS: 36415; 36600; 71045-TC-FY; 71250-TC; 80048; 80053; 81003; 81015; 82550; 82803; 83735; 84100; 84484; 85025; 85027; 85610; 85730; 87040; 87086; 87186; 87804; 90688; 93005; 93010; 94640; 94660; 97116-GP; 97161-GP; 99285-25; G0008; G0378

== ENCOUNTER 2019-04-21 12:34 | Inpatient (IN) | payer BC, OTHER ==
[2019-04-21] MEDS ORDERED: ONDANSETRON 4 MG/2 ML VIAL IVPUSH ONE ×2 (12:47→13:31)
[2019-04-21] MEDS: LACTATED RINGERS SOLUTION 1,000 ML/1,000 ML INFUS.BAG IV SCH (12:50)
[2019-04-21] MEDS ORDERED: PANTOPRAZOLE SODIUM 40 MG VIAL IVPUSH ONE (12:52)
[2019-04-21] MEDS ORDERED: ONDANSETRON 4 MG/2 ML VIAL ONE ×2 (13:03→13:36)
[2019-04-21] MEDS ORDERED: PANTOPRAZOLE SODIUM 40 MG VIAL ONE (13:04)
--- NOTE | 2019-04-21 13:07 | PDOC ---
History of Present Illness - General Stated Complaint: VOMITING Time Seen by Provider: 04/21/19 12:46 History Source: Patient, Family (Daugther arrived at bedside after initial interview.), Old Records, Other (Healthcare aide from residental facility provided some medical history.) Exam Limitations: No Limitations - History of Present Illness Initial Comments: HPI: 73 y/o female presenting to [facility] ER complaining of lower abdominal pain, vomiting, and diarrhea since last evening. Reports several episodes of dark emesis without joseph blood. Takes ASA daily. No h/o of GI bleeds. Denies recent ibuprofen useage, however takes 10mg Prednisone daily. Stool has been green and water - no bright red blood or dark material. No recent antibiotic therapy. Abdominal pain is in both lower quadrants. Medical Hx: - COPD on home oxygen - Emphysema - HTN - HLD - Osteoporosis - Anxiety - CAD - Major depressive disorder - Generalized muscle weakness - Vitamin D deficiency - H/o of anemia with iron infusion therapy Surgical Hx: - Hysterectomy - Resection of the left lung - R and L cataract surgery Review of Systems: In addition to that documented in the HPI above, the additional ROS was obtained : Constitutional- Denies fevers or chills Head- Denies vision changes ENMT- Denies sore throat CV- Denies chest pain Resp- Denies SOB GI- Endorses vomiting and diarrhea - Denies painful urination or hematuria MSK- Denies recent trauma Skin- Denies new rashes Neuro- Denies new numbness or tingling or weakness Endocrine- Denies polyuria Heme- Denies bleeding or bruising Physical Examination: Vital signs reviewed. Constitutional- Adult female in no acute distress but obvious discomfort. Found semi-fowlers in resus room. Ill appearing. Head- Normocephalic. No obvious external signs of trauma. Eyes- Sclerae white. Ears- Hearing grossly intact. Nose- No nasal discharge. Throat- Oral cavity and pharynx dry. Poor dentition. Neck- Supple, trachea is midline. Cardiovascular / Chest- Tachycardic rate with regular rhythm. No murmur, rubs, clicks, or gallops. Peripheral pulses- radial pulses full. Respiratory- Breathing shallow and rapid. Equal chest rise and fall. Decreased breath sounds in bilateral lower lobes. No stridor, no wheezing, no rhonchi. Gastrointestinal- Dark colored emesis observed. Abdomen is tender in epigastric and LLQ regions with grimace. Globally, abdomen is soft and nondistended. No pulsatile masses. No overlying skin lesions or obvious signs of trauma. Neuro- Alert and oriented x4. Moving all four extremities spontaneously. Skin- Warm, dry, and intact. Psych- Affect- appropriate. Mood- normal. Speech was non-labored, non- pressured. MDM: *Reviewed nursing notes and and prior visit documentation (if available). 73 y/o female presenting with nausea, vomiting, and diarrhea for the past two days. Afebrile rectally. Vitals remarkable for borderline hypotension with tachycardia. Physical exam as described above. Significant leukocytosis with left shift concerning for acute infection versus CA. CXR possibly concerning for RLL PNA - suspect aspirational event given vomiting. Given Zofran for symptoms. Ordered DuoNebs and Solumedrol for possible mild COPD exacerbation given mild acute respiratory acidosis. Repeat ABG normalized. CMP revealed acute renal failure and transaminitis with normal T. Bili. Potassium of 6 on moderately hemolyzed sample. No EKG changes. Given Calcium, D50, Insulin, and Bicarb. Already received albuterol. RUQ U/S unremarkable for acute biliary pathology. Further investigated with CTAP , which was unrevealing. UA revealed pyuria and leukocyte esterase but with >5 epithelial cells. Suspect likely contaminated sample. Low suspicion for acute cystitis given other lab results. Pt reports she was told she has an allergy to penicillin by a doctor but does not know what happens when she takes it. Has no knowledge of an allergic reaction. Will continue to prescribe Vancomycin and Cefepime for broad spectrum empiric antibiotics. Coffee ground emesis noted. Possible UGIB. H/H unremarkable for anemia. Low suspicion for significant hemorrhage. Ordered Protonix IVP. 21 Apr 2019 14:11 PM Telephone discussion with Dr. Goer. Verbally appraised of the pts HPI, ED course, and current plan of management. Will evaluate the pt on admission. 21 Apr 2019 17:21 PM Pt accepted to ICU by covering [employer]. 21 Apr 2019 17:40 PM In person discussion with Dr. Brock. Verbally appraised of the pts HPI, ED course, and current plan of management. Discussed possibility of C.Diff infection given diarrhea and significant leukocytosis. David Clemens M.D., PGY2 Emergency Medicine Resident Is this a multiple visit Asthma Patient?: No Past History - Past Medical History Allergies/Adverse Reactions: Allergies Allergy/AdvReac Type Severity Reaction Status Date / Time codeine Allergy Verified 04/01/18 15:08 latex Allergy Verified 04/01/18 15:08 Penicillins Allergy Verified 01/31/19 07:47 Sulfa (Sulfonamide Allergy Verified 04/01/18 15:08 Antibiotics) Home Medications: Ambulatory Orders Acetaminophen [Mapap] 650 mg PO PRN 10/26/16 Aspirin [ASA -] 81 mg PO DAILY 10/26/16 Citalopram Hydrobromide [Citalopram HBr] 20 mg PO DAILY 10/26/16 Clonazepam [Klonopin] 1 mg PO HS 10/26/16 Docusate Sodium [Colace -] 300 mg PO HS 10/26/16 Metoprolol Tartrate [Lopressor] 100 mg PO BID 10/26/16 Omeprazole 40 mg PO DAILY 10/26/16 Umeclidinium Brm/Vilanterol Tr [Anoro Ellipta 62.5-25 Mcg INH] 1 each IH DAILY 10/26/16 Verapamil HCl 120 mg PO DAILY 10/26/16 clonazePAM [Klonopin -] 0.5 mg PO AM 10/26/16 Albuterol 2.5/Ipratropium 0.5 [Duoneb -] 1 amp NEB Q6H 01/20/18 Albuterol Sulfate [Proair Hfa] 2 puff IH Q4H 01/20/18 Atorvastatin Ca [Lipitor] 40 mg PO HS 01/20/18 Cholecalciferol (Vitamin D3) [Vitamin D3] 1,000 unit PO DAILY 01/20/18 Prednisone See Taper PO DAILY #72 tablet 04/07/18 Anemia: Yes Asthma: Yes Cancer: Yes (uterine) Cardiac Disorders: No CVA: No COPD: Yes CHF: No Dementia: No Diabetes: No GI Disorders: Yes (gerd) Disorders: No HTN: Yes Hypercholesterolemia: Yes Liver Disease: No Psychiatric Problems: Yes (anxiety) Seizures: No Thyroid Disease: No - Surgical History Abdominal Surgery: No Appendectomy: No Cardiac Surgery: No Cholecystectomy: No Lung Surgery: Yes (lung nodules, Right lung resection) Neurologic Surgery: No Orthopedic Surgery: No - Psycho Social/Smoking Cessation Hx Smoking History: Former smoker Have you smoked in the past 12 months: No If you are a former smoker, when did you quit?: 4 years ago Hx Alcohol Use: No Drug/Substance Use Hx: No Substance Use Type: None Hx Substance Use Treatment: No ED Treatment Course - LABORATORY CBC & Chemistry Diagram: 04/21/19 17:25 04/21/19 12:59 - RADIOLOGY Radiograph Interpretation: CTAP w/o IV Contrast: THIS IS A PRELIMINARY REPORT FROM [facility] [employer] [facility] [facility] DATE OF SERVICE: 2019-04-21 16:40:32 IMAGES: [id number] EXAM: CT ABDOMEN AND PELVIS WITHOUT CONTRAST REASON FOR EXAM elevated LFT's COMPARISON: None FINDINGS: Linear structure observed within the left lower lobe posterior laterally that extends outside the thoracic cavity and associated with pleural thickening and atelectasis with focal opacity. Pleural thickening within the right lower lobe posteriorly is noted as well. Cardiomegaly with 11 mm thick pericardial effusion. Moderate size hiatal hernia is noted. The portion of the stomach below the diaphragm is distended.. There are no gallstones identified. There are a few low-attenuation lesions within the left hepatic lobe measuring approximately 2.6-2.7 cm and likely cyst.. Pancreas, spleen and adrenal glands are grossly unremarkable given the limitation of this non contrast exam. No renal stones are seen or evidence of obstructive uropathy. Minimal bilateral perinephric fatty stranding is noted superimposed pyelonephritis not excluded. Tiny cortical cyst suspected as well. Abdominal aorta without AAA. There is no retroperitoneal hemorrhage The appendix is normal. No evidence of bowel obstruction, ascites, abscess, free air or diverticulitis. Bladder is collapsed with [place] in place.. Osteoporotic bony matrix with degenerative disc disease and spondylosis. Moderate compression fractures at T11, T12 and L1 with approximately 60% height loss anteriorly and mild compression at L2 with 20% height loss. Left bipolar hip prosthesis intact. The rest of the bony pelvis is unremarkable. IMPRESSION: Hepatic lesions without biliary dilatation. MRI without and with contrast with dynamic imaging protocol can evaluate further. Appendix is normal. Moderate size hiatal hernia. Bibasilar scarring and pleural thickening. One or more of the following dose reduction techniques were used: automated exposure control, adjustment of the mA and/or kV according to patient size, use of iterative reconstruction technique. Disclaimer: This document was generated using a voice recognition system, which may produce sporadic inaccurate electrotype servicer or nonsensical phrases. One or more of the following dose reduction techniques were used: automated exposure control, adjustment of the mA and/or kV according to patient size, use of iterative reconstructive technique. THIS DOCUMENT HAS BEEN ELECTRONICALLY SIGNED Charley Dupont D.O. 04/21/2019 17:45 EST Discharge - Discharge Information Problems reviewed: Yes Clinical Impression/Diagnosis: UGIB (upper gastrointestinal bleed) Sepsis Qualifiers: Sepsis type: sepsis due to unspecified organism Sepsis acute organ dysfunction status: with acute organ dysfunction Severe sepsis acute organ dysfunction type : acute liver failure Hepatic coma status: without hepatic coma Severe sepsis shock status: without septic shock Qualified Code(s): A41.9 - Sepsis, unspecified organism Acute renal failure Qualifiers: Acute renal failure type: unspecified Qualified Code(s): N17.9 - Acute kidney failure, unspecified Aspiration pneumonia Qualifiers: Aspiration pneumonia type: due to vomit Laterality: right Lung location: lower lobe of lung Qualified Code(s): J69.0 - Pneumonitis due to inhalation of food and vomit Condition: Stable - Admission Yes - Follow up/Referral - Patient Discharge Instructions - Post Discharge Activity
[2019-04-21 13:08] LABS: VENOUS PC02 52.7 mmHg (38-52); VENOUS PH 7.28 (7.31-7.41)
[2019-04-21 13:09] LABS: VENOUS PO2 < 49 mmHg (28-48)
[2019-04-21 13:11] LABS: BASO % 0.3 % (0-2.0); EOS % 0.5 % (0-4.5); HEMATOCRIT 37.7 % (32.4-45.2); HEMOGLOBIN 12.2 GM/dL (10.7-15.3); LYMPH % 2.4 % (8-40); MCH 30.2 pg (25.7-33.7); MCHC 32.4 g/dl (32.0-36.0); MEAN PLT VOLUME 8.2 fl (7.5-11.1); MONO % 5.1 % (3.8-10.2); NEUT % 91.7 % (42.8-82.8); PLATELET COUNT 207 K/MM3 (134-434); RBC 4.06 M/mm3 (3.60-5.2); RDW 14.4 % (11.6-15.6)
[2019-04-21 13:17] LABS: WHITE BLOOD COUNT 32.5 K/mm3 (4.0-10.0)
[2019-04-21] MEDS ORDERED: CEFEPIME HCL/D5W 2 GM/50 ML BAG IVPB ONE (13:19)
[2019-04-21] MEDS ORDERED: VANCOMYCIN HCL 1,500 MG in DEXTROSE 5%-WATER - 500 ML IVPB ONE (13:19)
[2019-04-21 13:25] LABS: BILIRUBIN,TOTAL 0.6 mg/dL (0.2-1); BLOOD UREA NITROGEN 60.2 mg/dL (7-18); CREATININE 3.9 mg/dL (0.55-1.3); TOT PROT 5.8 g/dl (6.4-8.2)
[2019-04-21] MEDS ORDERED: methylPREDNISolone NA SUCC 125 MG/2 ML VIAL IVPUSH ONE (13:27)
[2019-04-21] MEDS ORDERED: ALBUTEROL SO4 2.5/IPRATROPIUM 0.5 INH SOL 3 ML VIAL.NEB. NEB ONE ×3 (13:27→13:58)
[2019-04-21 13:28] LABS: INR 1.3 (0.83-1.09); PROTHROMBIN TIME (PATIENT) 15.4 SEC (9.7-13.0)
[2019-04-21] MEDS ORDERED: methylPREDNISolone NA SUCC 125 MG/2 ML VIAL ONE (13:36)
--- NOTE | 2019-04-21 13:48 | PDOC ---
Documentation entered by Phylicia Dubon SCRIBE, acting as scribe for Junior Cyr MD. Junior Cyr MD: This documentation has been prepared by the Jagdish montanez Adrianna, SCRIBE, under my direction and personally reviewed by me in its entirety. I confirm that the documentation accurately reflects all work, treatment, procedures, and medical decision making performed by me. Attending Attestation - Resident Resident Name: David - ED Attending Attestation I have performed the following: I have examined & evaluated the patient, The case was reviewed & discussed with the resident, I agree w/resident's findings & plan, Exceptions are as noted - HPI HPI: The patient is a 73 year old female,with a significant PMH of COPD (on 2L O2 at home), HTN, GERD without esophagitis, OA, HLD, s/p resection of the right lung, who presents to the ED [facility] from [facility] for evaluation of lower abdominal pain, nausea, vomiting, and hypotension for one day. Patient complains of diffuse lower abdominal pain, with multiple episodes of nausea and black vomit. Denies blood in vomit. She endorses associated loose stool that is green in color, without any tarriness or blood. Patient was found to be hypotensive (90s systolic), so she was sent to the ED for further evaluation. Denies fever, chills, chest pain, SOB, dysuria, hematuria, dizziness, focal weakness/numbness. Allergies: Latex, Codeine, Penicillins, Sulfa Surgical History: Right lung nodule resection Social History: Former smoker (quit 4 years ago). Denies EtOH or illicit drug use PCP: Dr. Antony Mccrary - Physicial Exam PE: GENERAL: Awake, alert, and fully oriented, in respiratory distress EYES: PERRLA, EOMI, sclera anicteric, conjunctiva clear ENT: +dried coffee grounds on tongue and lips NECK: Normal ROM, supple, no lymphadenopathy, JVD, or masses LUNGS: Diminished BS to L lung base. No wheezes, and no crackles HEART: Tachycardic to 120s, normal S1 and S2, no murmurs, rubs or gallops ABDOMEN: Soft, diffuse abd ttp, most just above epigastric area, normoactive bowel sounds. No guarding, no rebound. No masses EXTREMITIES: Normal range of motion, no edema. No cords, erythema, or tenderness NEUROLOGICAL: Normal speech, cranial nerves intact, equal strength and sensation b/l SKIN: Warm, Dry, normal turgor, no rashes or lesions noted. - Critical Care Time Total Critical Care Time: 30 Critical Care Statement: The care of this patient involved high complexity decision making to prevent further life threatening deterioration of the patient 's condition and/or to evaluate & treat vital organ system(s) failure or risk of failure. - Medical Decision Making 04/21/19 13:42 73-year-old female with a history of COPD, hypertension, presents from assisted living at [facility] with coffee-ground emesis, tachycardia, abdominal pain, hypotension concerning for upper GI bleed. Patient is on aspirin chronically, no other blood thinners. She has been given 80 mg of pantoprazole push. She has been covered with Vanco and cefepime for possible sepsis. Of note, patient has received ceftriaxone multiple times in the past with no reaction despite penicillin allergy. From respiratory standpoint patient is tachypneic, however and blood gas reveals acidosis and CO2 retention, concerning for hypercarbic respiratory failure. Will treat at this point with nebs, and steroids with a low threshold to put patient on BiPAP so long as she is protecting her airway. We will give her Zofran for nausea. Labs thus far with new renal failure with creatinine of 3.9 as well as elevated LFTs. In light of patient's abdominal pain, will obtain a CT scan of her abdomen pelvis if she is stabilized. Anticipate admission to ICU versus telemetry. 04/21/19 14:10 XR with R sided infiltrate concerning for aspiration WIll check ABG at 2:30 Bedside US currently being performed Case discussed with Dr. Gore who will evaluate pt 04/21/19 16:31 BP improved to 115/70. HR 130 Pt in less respiratory distress ABG improved post nebs/steroids US with no acute pathology CTAP pending Call placed to Dr. Isbell for admission, awaiting call back Heart Score/ECG Review #1 04/21/19 13:42 Twelve-lead EKG was performed and reviewed by me. Sinus tachycardia, rate 128. Normal axis. Wavy baseline but no obvious ST elevations.
[2019-04-21 13:52] LABS: PLATELET ESTIMATE NORMAL
[2019-04-21] MEDS ORDERED: CALCIUM GLUCONATE 10% - 1,000 MG/10 ML VIAL IVPB ONE (13:54)
[2019-04-21] MEDS ORDERED: INSULIN REGULAR HUMAN 100 UNITS/ML *VIAL IVPUSH ONE ×2 (13:55→21:50)
[2019-04-21] MEDS ORDERED: CEFEPIME 2 GM/100 ML BAG IVPB ONE (13:55)
[2019-04-21] MEDS ORDERED: SODIUM BICARBONATE 8.4% 50 MEQ/50 ML DISP.SYRIN IVPUSH ONE (13:55)
[2019-04-21] MEDS ORDERED: DEXTROSE 50%-WATER - 25 GM/50 ML VIAL IVPUSH ONE ×2 (13:55→21:50)
[2019-04-21] MEDS ORDERED: DEXTROSE 50%-WATER 25 GM/50 ML DISP.SYRIN ONE ×2 (14:12→22:26)
[2019-04-21] MEDS ORDERED: SODIUM BICARBONATE 8.4% 50 MEQ/50 ML VIAL ONE (14:12)
[2019-04-21] MEDS ORDERED: CALCIUM GLUCONATE 10% - 1,000 MG/10 ML VIAL ONE (14:12)
[2019-04-21] MEDS ORDERED: LACTATED RINGERS SOLUTION 1000 ML INFUS.BAG IV ONE ×2 (14:24→18:45)
[2019-04-21] MEDS ORDERED: NOREPINEPHRINE BITARTRATE 4,000 MCG in DEXTROSE 5%-WATER - 496 ML IV SCH (14:30)
[2019-04-21 14:58] LABS: EPI CELLS 8.4 /HPF (0-5/HPF); HYALINE CASTS 24 /lpf (0-8); URINE APPEARANCE TURBID; URINE BILIRUBIN 2+ (NEGATIVE); URINE COLOR DK YELLOW; URINE GLUCOSE (UA) TRACE (NEGATIVE); URINE KETONE TRACE (NEGATIVE); URINE LEUK ESTERASE 2+ (NEGATIVE); URINE NITRITE NEGATIVE (NEGATIVE); URINE PROTEIN 3+ (NEGATIVE); URINE WBC 229 /hpf (0-5)
[2019-04-21 15:14] LABS: URINE BACTERIA POSITIVE /hpf (NEGATIVE); YEAST NEGATIVE (NEGATIVE)
[2019-04-21 15:15] LABS: ARTERIAL BLD GAS O2 SATURATION 92.1 % (95-98); ARTERIAL BLOOD GAS BASE EXCESS -0.5 meq/l (-2-2); ARTERIAL BLOOD GAS PO2 68.9 mmHg (80-100); ARTERIAL BLOOD GAS pH 7.37 (7.35-7.45)
[2019-04-21 15:17] LABS: ALLENS TEST POSITIVE; CARBOXYHEMOGLOBIN 1.3 % (0-2)
[2019-04-21 18:04] LABS: HEMATOCRIT 33.7 % (32.4-45.2); HEMOGLOBIN 11.1 GM/dL (10.7-15.3); MCH 30.5 pg (25.7-33.7); MCHC 32.9 g/dl (32.0-36.0); MEAN CELL VOLUME 92.6 fl (80-96); MEAN PLT VOLUME 8.3 fl (7.5-11.1); PLATELET COUNT 141 K/MM3 (134-434); RBC 3.64 M/mm3 (3.60-5.2); RDW 14.5 % (11.6-15.6); WHITE BLOOD COUNT 28.6 K/mm3 (4.0-10.0)
--- NOTE | 2019-04-21 18:22 | HP ---
CHIEF COMPLAINT: Abdominal pain diarrhea and vomiting for 1 day PCP: She lives in a assisted facility and she has a doctor over there HISTORY OF PRESENT ILLNESS: This is a 73-year-old female came to ER with complaining of lower abdominal pain vomiting and diarrhea since yesterday evening she said vomiting is also dark and coffee-ground and without any joseph blood and there she denies any melena or dark-colored stool she is also complaining of diarrhea which is kind of mixed stool and sometimes watery in the home she takes multiple medication for notably she take ibuprofen sometime but denies recent use she take prednisone daily for COPD she denies any red blood in the stool or any dark blood in the stool or anything else no history of recent antibiotic therapy She had a stress test done by Dr. Foster which at [facility] I reviewed in the old chart but on further inquiry by the family she had a cardiac cath done at [facility] and which showed normal normal coronary artery no arterial disease. In the ER she has very high white cell count of 33,000 she will have the CAT scan in the ER which is not showing any signs of acute appendicitis or acute cholecystitis or acute diverticulitis but she apparently has sign of sepsis her lactic acidosis high 3.0 She is being admitted to the hospital for possible sepsis etiology unknown. ER course was notable for: (1) sepsis without any apparent cause or etiology with high white cell count (2) (3) Recent Travel: PAST MEDICAL HISTORY:- COPD on home oxygen - Emphysema - HTN - HLD - Osteoporosis - Anxiety - CAD - Major depressive disorder - Generalized muscle weakness - Vitamin D deficiency - H/o of anemia with iron infusion therapy PAST SURGICAL HISTORY: - Hysterectomy - Resection of the left lung - R and L cataract surgery Social History: Smoking: Alcohol: Drugs: She denies any alcohol drug use she is ex-smoker she quit many years ago Allergies codeine Allergy (Verified 04/01/18 15:08) latex Allergy (Verified 04/01/18 15:08) Penicillins Allergy (Verified 01/31/19 07:47) Sulfa (Sulfonamide Antibiotics) Allergy (Verified 04/01/18 15:08) HOME MEDICATIONS: Home Medications Medication Instructions Recorded Acetaminophen [Mapap] 650 mg PO PRN 10/26/16 Aspirin [ASA -] 81 mg PO DAILY 10/26/16 Citalopram Hydrobromide 20 mg PO DAILY 10/26/16 [Citalopram HBr] Clonazepam [Klonopin] 1 mg PO HS 10/26/16 Docusate Sodium [Colace -] 300 mg PO HS 10/26/16 Metoprolol Tartrate [Lopressor] 100 mg PO BID 10/26/16 Omeprazole 40 mg PO DAILY 10/26/16 Umeclidinium Brm/Vilanterol Tr 1 each IH DAILY 10/26/16 [Anoro Ellipta 62.5-25 Mcg INH] Verapamil HCl 120 mg PO DAILY 10/26/16 clonazePAM [Klonopin -] 0.5 mg PO AM 10/26/16 Albuterol 2.5/Ipratropium 0.5 1 amp NEB Q6H 01/20/18 [Duoneb -] Albuterol Sulfate [Proair Hfa] 2 puff IH Q4H 01/20/18 Atorvastatin Ca [Lipitor] 40 mg PO HS 01/20/18 Cholecalciferol (Vitamin D3) 1,000 unit PO DAILY 01/20/18 [Vitamin D3] Prednisone See Taper PO DAILY #72 tablet 04/07/18 REVIEW OF SYSTEMS Her review of system is positive for no dizziness no chest pain positive for abdominal pain and nausea vomiting and diarrhea negative for any shortness of breath negative for any fall in the [facility] negative for diabetes negative for hypothyroidism positive for COPD negative for stroke all negative and the rash PHYSICAL EXAMINATION Vital Signs - 24 hr 04/21/19 04/21/19 04/21/19 12:40 12:50 13:11 Temperature 98.4 F Pulse Rate 124 H Pulse Rate [ 128 H 125 H Apical] Respiratory 30 H 28 H 29 H Rate Blood Pressure 98/54 L Blood Pressure 98/63 82/48 L [Right Arm] O2 Sat by Pulse 95 95 98 Oximetry (%) 04/21/19 04/21/19 04/21/19 13:20 13:30 13:40 Temperature 98.4 F Pulse Rate Pulse Rate [ 127 H 127 H 125 H Apical] Respiratory 24 H 26 H Rate Blood Pressure Blood Pressure 90/52 L 95/55 L 92/48 L [Right Arm] O2 Sat by Pulse 98 98 Oximetry (%) 04/21/19 04/21/19 04/21/19 13:50 14:06 14:20 Temperature Pulse Rate Pulse Rate [ 127 H 132 H Apical] Respiratory 25 H 26 H Rate Blood Pressure Blood Pressure 107/61 99/51 L [Right Arm] O2 Sat by Pulse 98 97 98 Oximetry (%) 04/21/19 04/21/19 04/21/19 14:35 15:10 15:20 Temperature Pulse Rate Pulse Rate [ 134 H 141 H 141 H Apical] Respiratory 28 H 34 H 25 H Rate Blood Pressure Blood Pressure 105/53 L 118/61 106/54 L [Right Arm] O2 Sat by Pulse 98 94 L 94 L Oximetry (%) 04/21/19 04/21/19 04/21/19 15:30 15:40 15:50 Temperature Pulse Rate Pulse Rate [ 139 H 137 H 137 H Apical] Respiratory 22 H 22 H 34 H Rate Blood Pressure Blood Pressure 96/59 L 113/65 113/54 L [Right Arm] O2 Sat by Pulse 94 L 94 L 95 Oximetry (%) 04/21/19 04/21/19 04/21/19 16:00 16:10 16:20 Temperature Pulse Rate Pulse Rate [ 141 H 136 H 134 H Apical] Respiratory 28 H 34 H 24 H Rate Blood Pressure Blood Pressure 116/58 L 115/54 L 114/61 [Right Arm] O2 Sat by Pulse 94 L 94 L Oximetry (%) 04/21/19 04/21/19 16:30 17:00 Temperature Pulse Rate Pulse Rate [ 134 H 133 H Apical] Respiratory 34 H 28 H Rate Blood Pressure Blood Pressure 120/57 L 123/63 [Right Arm] O2 Sat by Pulse 93 L 95 Oximetry (%) GENERAL: Awake, alert, and fully oriented, in mild distress. HEAD: Normal with no signs of trauma. EYES: Pupils equal, round and reactive to light, extraocular movements intact, sclera anicteric, conjunctiva clear. No lid lag. EARS, NOSE, THROAT: Ears normal, nares patent, oropharynx clear without exudates. Moist mucous membranes. NECK: Normal range of motion, supple without lymphadenopathy, JVD, or masses. LUNGS: Breath sounds equal, clear to auscultation bilaterally. No wheezes, and no crackles. No accessory muscle use. HEART: Regular rate and rhythm, normal S1 and S2 without murmur, rub or gallop. ABDOMEN: Soft, she is diffusely tender in the abdomen especially in the left lower quadrant but CAT scan did not showed any sign of diverticulitis start IV fluids I discussed the case with patient's family in detail MUSCULOSKELETAL: Normal range of motion at all joints. No bony deformities or tenderness. No CVA tenderness. UPPER EXTREMITIES: 2+ pulses, warm, well-perfused. No cyanosis. No clubbing. No peripheral edema. LOWER EXTREMITIES: 2+ pulses, warm, well-perfused. No calf tenderness. No peripheral edema. NEUROLOGICAL: Cranial nerves II-XII intact. Normal speech. Normal gait. PSYCHIATRIC: Cooperative. Good eye contact. Appropriate mood and affect. SKIN: Warm, dry, normal turgor, no rashes or lesions noted, normal capillary refill. Laboratory Results - last 24 hr 04/21/19 04/21/19 04/21/19 12:45 12:56 12:59 WBC RBC Hgb Hct MCV MCH MCHC RDW Plt Count MPV Absolute Neuts (auto) Neutrophils % Neutrophils % (Manual) Band Neutrophils % Lymphocytes % Lymphocytes % (Manual) Monocytes % Monocytes % (Manual) Eosinophils % Eosinophils % (Manual) Basophils % Basophils % (Manual) Myelocytes % (Man) Promyelocytes % (Man) Blast Cells % (Manual) Nucleated RBC % Metamyelocytes Platelet Estimate PT with INR 15.40 H INR 1.30 H PTT (Actin FS) 35.0 Anticoagulation Therapy Puncture Site ABG pH ABG pCO2 at Pt Temp ABG pO2 at Pt Temp ABG HCO3 ABG O2 Sat (Measured) ABG O2 Content ABG Base Excess Chace Test VBG pH POC VBG pCO2 POC VBG pO2 VBG HCO3 VBG O2 Sat (Jewell) VBG Base Excess Carboxyhemoglobin Methemoglobin O2 Delivery Device Oxygen Flow Rate Vent Mode Vent Rate Mechanical Rate Pressure Support Vent Sodium Potassium Chloride Carbon Dioxide Anion Gap BUN Creatinine Est GFR (CKD-EPI)AfAm Est GFR (CKD-EPI)NonAf Random Glucose Lactic Acid Calcium Total Bilirubin AST ALT Alkaline Phosphatase Troponin I Total Protein Albumin Lipase Urine Color Dk yellow Urine Appearance Turbid Urine pH 5.0 Ur Specific Dora 1.022 Urine Protein 3+ H Urine Glucose (UA) Trace Urine Ketones Trace H Urine Blood 2+ H Urine Nitrite Negative Urine Bilirubin 2+ H Urine Urobilinogen 1.0 Ur Leukocyte Esterase 2+ H Urine WBC (Auto) 229 Urine RBC (Auto) 4-5 Urine Casts (Auto) 24 U Pathogenic Cast Auto Positive U Epithel Cells (Auto) 8.4 Urine Bacteria (Auto) Positive Urine Yeast (Auto) Negative Blood Type O POSITIVE Antibody Screen Negative 04/21/19 04/21/19 04/21/19 12:59 12:59 12:59 WBC 32.5 H* RBC 4.06 Hgb 12.2 Hct 37.7 D MCV 93.0 MCH 30.2 D MCHC 32.4 RDW 14.4 D Plt Count 207 MPV 8.2 D Absolute Neuts (auto) 29.8 H Neutrophils % 91.7 H Neutrophils % (Manual) 84.1 H Band Neutrophils % 3.0 Lymphocytes % 2.4 L D Lymphocytes % (Manual) 3.0 L D Monocytes % 5.1 Monocytes % (Manual) 6 D Eosinophils % 0.5 D Eosinophils % (Manual) 2.0 D Basophils % 0.3 Basophils % (Manual) 0.0 Myelocytes % (Man) 0 Promyelocytes % (Man) 0 Blast Cells % (Manual) 0 Nucleated RBC % 0 Metamyelocytes 1 Platelet Estimate Normal PT with INR INR PTT (Actin FS) Anticoagulation Therapy Puncture Site ABG pH ABG pCO2 at Pt Temp ABG pO2 at Pt Temp ABG HCO3 ABG O2 Sat (Measured) ABG O2 Content ABG Base Excess Chace Test VBG pH POC VBG pCO2 POC VBG pO2 VBG HCO3 VBG O2 Sat (Jewell) VBG Base Excess Carboxyhemoglobin Methemoglobin O2 Delivery Device Oxygen Flow Rate Vent Mode Vent Rate Mechanical Rate Pressure Support Vent Sodium 138 Potassium 6.0 H Chloride 104 Carbon Dioxide 24 Anion Gap 10 BUN 60.2 H Creatinine 3.9 H Est GFR (CKD-EPI)AfAm 12.49 Est GFR (CKD-EPI)NonAf 10.77 Random Glucose 143 H Lactic Acid Calcium 8.0 L Total Bilirubin 0.6 AST 220 H ALT 102 H Alkaline Phosphatase 127 H Troponin I < 0.02 Total Protein 5.8 L Albumin 3.0 L Lipase 86 Urine Color Urine Appearance Urine pH Ur Specific Dora Urine Protein Urine Glucose (UA) Urine Ketones Urine Blood Urine Nitrite Urine Bilirubin Urine Urobilinogen Ur Leukocyte Esterase Urine WBC (Auto) Urine RBC (Auto) Urine Casts (Auto) U Pathogenic Cast Auto U Epithel Cells (Auto) Urine Bacteria (Auto) Urine Yeast (Auto) Blood Type Antibody Screen 04/21/19 04/21/19 04/21/19 12:59 13:00 14:56 WBC RBC Hgb Hct MCV MCH MCHC RDW Plt Count MPV Absolute Neuts (auto) Neutrophils % Neutrophils % (Manual) Band Neutrophils % Lymphocytes % Lymphocytes % (Manual) Monocytes % Monocytes % (Manual) Eosinophils % Eosinophils % (Manual) Basophils % Basophils % (Manual) Myelocytes % (Man) Promyelocytes % (Man) Blast Cells % (Manual) Nucleated RBC % Metamyelocytes Platelet Estimate PT with INR INR PTT (Actin FS) Anticoagulation Therapy Puncture Site ABG pH ABG pCO2 at Pt Temp ABG pO2 at Pt Temp ABG HCO3 ABG O2 Sat (Measured) ABG O2 Content ABG Base Excess Chace Test VBG pH 7.28 L POC VBG pCO2 52.7 H POC VBG pO2 < 49 H VBG HCO3 24.0 VBG O2 Sat (Jewell) 63.4 L VBG Base Excess -2.7 L Carboxyhemoglobin 1.3 Methemoglobin 1.3 O2 Delivery Device Oxygen Flow Rate Vent Mode Vent Rate Mechanical Rate Pressure Support Vent Sodium Potassium Chloride Carbon Dioxide Anion Gap BUN Creatinine Est GFR (CKD-EPI)AfAm Est GFR (CKD-EPI)NonAf Random Glucose Lactic Acid 3.0 H* Calcium Total Bilirubin AST ALT Alkaline Phosphatase Troponin I Total Protein Albumin Lipase Urine Color Urine Appearance Urine pH Ur Specific Dora Urine Protein Urine Glucose (UA) Urine Ketones Urine Blood Urine Nitrite Urine Bilirubin Urine Urobilinogen Ur Leukocyte Esterase Urine WBC (Auto) Urine RBC (Auto) Urine Casts (Auto) U Pathogenic Cast Auto U Epithel Cells (Auto) Urine Bacteria (Auto) Urine Yeast (Auto) Blood Type Antibody Screen 04/21/19 04/21/19 14:56 17:25 WBC 28.6 H RBC 3.64 Hgb 11.1 Hct 33.7 MCV 92.6 MCH 30.5 MCHC 32.9 RDW 14.5 Plt Count 141 D MPV 8.3 Absolute Neuts (auto) Neutrophils % Neutrophils % (Manual) Band Neutrophils % Lymphocytes % Lymphocytes % (Manual) Monocytes % Monocytes % (Manual) Eosinophils % Eosinophils % (Manual) Basophils % Basophils % (Manual) Myelocytes % (Man) Promyelocytes % (Man) Blast Cells % (Manual) Nucleated RBC % Metamyelocytes Platelet Estimate PT with INR INR PTT (Actin FS) Anticoagulation Therapy No Result Required. Puncture Site No Result Required. ABG pH 7.37 ABG pCO2 at Pt Temp 43.0 ABG pO2 at Pt Temp 68.9 L ABG HCO3 24.3 ABG O2 Sat (Measured) 92.1 L ABG O2 Content 13.5 ABG Base Excess -0.5 Chace Test Positive VBG pH POC VBG pCO2 POC VBG pO2 VBG HCO3 VBG O2 Sat (Jewell) VBG Base Excess Carboxyhemoglobin Methemoglobin O2 Delivery Device No Result Required. Oxygen Flow Rate No Result Required. Vent Mode No Result Required. Vent Rate No Result Required. Mechanical Rate No Result Required. Pressure Support Vent No Result Required. Sodium Potassium Chloride Carbon Dioxide Anion Gap BUN Creatinine Est GFR (CKD-EPI)AfAm Est GFR (CKD-EPI)NonAf Random Glucose Lactic Acid Calcium Total Bilirubin AST ALT Alkaline Phosphatase Troponin I Total Protein Albumin Lipase Urine Color Urine Appearance Urine pH Ur Specific Dora Urine Protein Urine Glucose (UA) Urine Ketones Urine Blood Urine Nitrite Urine Bilirubin Urine Urobilinogen Ur Leukocyte Esterase Urine WBC (Auto) Urine RBC (Auto) Urine Casts (Auto) U Pathogenic Cast Auto U Epithel Cells (Auto) Urine Bacteria (Auto) Urine Yeast (Auto) Blood Type Antibody Screen ASSESSMENT/PLAN: Problem #1 sepsis Etiology unknown at this time will start patient on antibiotic IV she is allergic to penicillin so at this time we will start IV cefepime patient already got a dose of vancomycin in the ER will send stool for C. difficile Problem #2 upper gi bleeding start on protonox gi eval copd start on nebulizer treatment acute renal failure will start on iv fluiDS aND Nephro consult low Bp and tachy possibly due to sepsis and dehydration iv fluids admit to icu d/w family in detail consults Pulmonary, cardica ,id , gi and renal dvt prophylaxis lovenox Patient's family is at bedside discussed in detail about the possible causes of sepsis including diverticulitis colitis C. difficile colitis or possible aspiration pneumonia or other causes of sepsis which we do not know at this time will do intensive care total time spent with her is 1/2-hour in the ICU Case also discussed with the marshmallow runner antibiotic has been started. Patient prognosis is guarded at this time. Visit type - Emergency Visit Emergency Visit: Yes ED Registration Date: 04/21/19 Care time: The patient presented to the Emergency Department on the above date and was hospitalized for further evaluation of their emergent condition. - New Patient This patient is new to me today: Yes Date on this admission: 04/22/19 - Critical Care Critical Care patient: Yes Total Critical Care Time (in minutes): 90 Critical Care Statement: The care of this patient involved high complexity decision making to prevent further life threatening deterioration of the patient 's condition and/or to evaluate & treat vital organ system(s) failure or risk of failure.
--- NOTE | 2019-04-21 18:29 | CONSULT ---
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 At baseline she lives in an assisted living facility. She required LTOT 2-3 lpm and NOC BiPAP for JANETTE. She is followed by Dr. Darling for pulmonary management. She states she was in her usual state of health until yesterday when she ate a can of cashews and became nauseous and started vomiting brown, non bloody material. She developed diffuse lower abdominal pain and was found to be hypotensive (SBP 90s) and was sent to the ED for evaluation. In the ED she was again noted to be hypotensive w/ SBP 90s and tachycardic (130 s) and received IVF x 2l of NS w/ improved SBP 130s w/ persistent tachycardia. She had 2 additional episodes of emesis that was noted to be coffee ground. GI was consulted. Labs significant for leukocytosis (wbc 32.5), Hgb 12.2, SCr 3.9 from baseline 0.9, mild transaminitis (AST/ALT 220/102) and a lactate of 3.0. CXR w/ retrocardiac opacity. Abd u/s showed no hydronephrosis and no signs of acute cholecystitis. - History Source History Provided By: Patient, Family Member, Medical Record Limitations to Obtaining History: No Limitations - Past Medical History Cardio/Vascular: Yes: HTN, Hyperlipdemia Pulmonary: Yes: COPD, O2 Dependent Psych: Yes: Depression - Past Surgical History Additional Surgical History: left lung resection for carcinoid tumor - Alcohol/Substance Use Hx Alcohol Use: No - Smoking History Smoking history: Former smoker Have you smoked in the past 12 months: No If you are a former smoker, when did you quit?: 4 years ago Home Medications - Allergies Allergies/Adverse Reactions: Allergies Allergy/AdvReac Type Severity Reaction Status Date / Time codeine Allergy Verified 04/01/18 15:08 latex Allergy Verified 04/01/18 15:08 Penicillins Allergy Verified 01/31/19 07:47 Sulfa (Sulfonamide Allergy Verified 04/01/18 15:08 Antibiotics) - Home Medications Home Medications: Ambulatory Orders Acetaminophen [Mapap] 650 mg PO PRN 10/26/16 Aspirin [ASA -] 81 mg PO DAILY 10/26/16 Citalopram Hydrobromide [Citalopram HBr] 20 mg PO DAILY 10/26/16 Clonazepam [Klonopin] 1 mg PO HS 10/26/16 Docusate Sodium [Colace -] 300 mg PO HS 10/26/16 Metoprolol Tartrate [Lopressor] 100 mg PO BID 10/26/16 Omeprazole 40 mg PO DAILY 10/26/16 Umeclidinium Brm/Vilanterol Tr [Anoro Ellipta 62.5-25 Mcg INH] 1 each IH DAILY 10/26/16 Verapamil HCl 120 mg PO DAILY 10/26/16 clonazePAM [Klonopin -] 0.5 mg PO AM 10/26/16 Albuterol 2.5/Ipratropium 0.5 [Duoneb -] 1 amp NEB Q6H 01/20/18 Albuterol Sulfate [Proair Hfa] 2 puff IH Q4H 01/20/18 Atorvastatin Ca [Lipitor] 40 mg PO HS 01/20/18 Cholecalciferol (Vitamin D3) [Vitamin D3] 1,000 unit PO DAILY 01/20/18 Prednisone See Taper PO DAILY #72 tablet 04/07/18 Family Medical History Family History: Unremarkable Review of Systems - Review of Systems Gastrointestinal: reports: Abdominal Pain, Diarrhea, Nausea, Vomiting Physical Exam Vital Signs: Vital Signs Temperature 98.4 F 04/21/19 13:40 Pulse Rate 133 H 04/21/19 17:00 Respiratory Rate 28 H 04/21/19 17:00 Blood Pressure 123/63 04/21/19 17:00 O2 Sat by Pulse Oximetry (%) 95 04/21/19 17:00 Current Medications Albuterol/Ipratropium (Duoneb -) 1 amp NEB RQID FABIOLA Lactated Ringer's (Lactated Ringers Solution) 1,000 ml in 1,000 mls @ 0 mls/hr IV ASDIR FABIOLA Last Admin: 04/21/19 12:50 Dose: 1,000 mls/hr Norepinephrine Bitartrate 4, (000 mcg/ Dextrose) 500 mls @ 37.5 mls/hr IV TITR FABIOLA; Protocol Pantoprazole Sodium 80 mg/ (Sodium Chloride) 100 mls @ 10 mls/hr IVPB Q10H FABIOLA Prednisone (Deltasone -) 20 mg PO DAILY FABIOLA Constitutional: Yes: No Distress, Calm Eyes: Yes: EOM Intact HENT: Yes: Normocephalic Neck: Yes: Trachea Midline Cardiovascular: Yes: Tachycardia, S1, S2 Respiratory: Yes: CTA Bilaterally Gastrointestinal: Yes: Normal Bowel Sounds, Soft, Abdomen, Obese, Tenderness ( LLQ) Extremities: Yes: WNL Edema: No Integumentary: Yes: WNL Neurological: Yes: Alert, Oriented ...Motor Strength: WNL Psychiatric: Yes: Alert, Oriented Labs: CBC, BMP 04/21/19 17:25 04/21/19 12:59 Lab Results WBC 28.6 K/mm3 (4.0-10.0) H 04/21/19 17:25 RBC 3.64 M/mm3 (3.60-5.2) 04/21/19 17:25 Hgb 11.1 GM/dL (10.7-15.3) 04/21/19 17:25 Hct 33.7 % (32.4-45.2) 04/21/19 17:25 MCV 92.6 fl (80-96) 04/21/19 17:25 MCHC 32.9 g/dl (32.0-36.0) 04/21/19 17:25 RDW 14.5 % (11.6-15.6) 04/21/19 17:25 Plt Count 141 K/MM3 (134-434) D 04/21/19 17:25 Sodium 138 mmol/L (136-145) 04/21/19 12:59 Potassium mmol/L (3.5-5.1) 04/21/19 12:59 Chloride 104 mmol/L (98-107) 04/21/19 12:59 Carbon Dioxide 24 mmol/L (21-32) 04/21/19 12:59 Anion Gap 10 MMOL/L (8-16) 04/21/19 12:59 BUN 60.2 mg/dL (7-18) H 04/21/19 12:59 Creatinine 3.9 mg/dL (0.55-1.3) H 04/21/19 12:59 Random Glucose 143 mg/dL (74-106) H 04/21/19 12:59 Calcium 8.0 mg/dL (8.5-10.1) L 04/21/19 12:59 Blood Type O POSITIVE 04/21/19 12:45 Antibody Screen Negative 04/21/19 12:45 INR 1.30 (0.83-1.09) H 04/21/19 12:59 Imaging - Results Chest X-ray: Report Reviewed, Image Reviewed Cat Scan: Report Reviewed, Image Reviewed Problem List - Problems (1) COPD (chronic obstructive pulmonary disease) Code(s): J44.9 - CHRONIC OBSTRUCTIVE PULMONARY DISEASE, UNSPECIFIED (2) Acute renal failure Code(s): N17.9 - ACUTE KIDNEY FAILURE, UNSPECIFIED Qualifiers: Acute renal failure type: unspecified Qualified Code(s): N17.9 - Acute kidney failure, unspecified (3) Sepsis Code(s): A41.9 - SEPSIS, UNSPECIFIED ORGANISM Qualifiers: Sepsis type: sepsis due to unspecified organism Sepsis acute organ dysfunction status: with acute organ dysfunction Severe sepsis acute organ dysfunction type: acute liver failure Hepatic coma status: without hepatic coma Severe sepsis shock status: without septic shock Qualified Code(s): A41.9 - Sepsis, unspecified organism; R65.20 - Severe sepsis without septic shock; K72.00 - Acute and subacute hepatic failure without coma (4) UGIB (upper gastrointestinal bleed) Code(s): K92.2 - GASTROINTESTINAL HEMORRHAGE, UNSPECIFIED Assessment/Plan This is a 73 yo woman from [place] w/ multiple medical problems: COPD on LTOT (2lpm) , JANETTE on noc BiPAP, 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 GI: nausea and vomiting w/ Coffee ground emesis c/f UGIB vs esophagitis. h/o GERD -GI consulted -IV access -active type and screen -NPO -cbc q4-6hr -transfuse for Hgb <7.0, INR <2.5, PLT <50 -PPI drip ID: leukocytosis, retrocardiac opacity but other signs of acute respiratory pathology on baseline oxygen level, diarrhea w/ no recent ABX noted but given WBC >30 also c/f c. diff -andrews culture -received cefepime and vanco in ED -trend procalcitonin -send c. diff -ID consult re: ABX Renal: [facility] likely prerenal in setting of dehydration r/t n/v and diarrhea. No obstruction seen on CT or abd u/s -Renal consult -Renal dose all medications -send urine lytes -strict I&Os -IV fluids Pulm: COPD on LTOT, JANETTE. No respiratory complaints -cont O2 for Sat >90% -BiPAP at night -cont home bronchodilators -Prednisone 10mg at home with double dose (20mg) given stress state CV: hypotension likely 2/2 hypovolemia resolved w/ IVFs, lactic acidosis likely 2/2 dehydration -cont IV fluids -trend lactic acidosis -hold home ASA given c/f GIB -hold BB given hypotension -hold statin given transaminitis Neuro: MDD -seroquel pm -home dose clonazepam 0.5mg qam, 1mg qpm -citalopram 20mg PPX: -GI? PPI drip -DVT SCDs given c/f UGIB Boerem ACNP Pulm/CCM
[2019-04-21] MEDS ORDERED: DEXTROSE 5%-0.45% SALINE 1,000 ML IV SCH (18:30)
[2019-04-21] MEDS ORDERED: ALBUTEROL SO4 2.5/IPRATROPIUM 0.5 INH SOL 3 ML VIAL.NEB. NEB PRN (18:36)
--- NOTE | 2019-04-21 18:48 | CONSULT ---
Consult Consult Specialty:: Nephrology Reason for Consultation:: [facility] - History of Present Illness Chief Complaint: vomiting History of Present Illness: Pt is a 73 year old female with pmhx of copd htn emphysema, htn hld cad, and anxiety who presents to the ER with abd pain, vomiting and diarrhea. She has had numerous episodes since last night. She says she had dark emisis. She was found to be hypotensive and tachycardic with an elevated wbc. She was also found to be in acute renal failure and I was called to evaluate her. She denies chest pain. She denies shortness of breath. She denies fever or chills. She has had poor PO intake as well. - History Source History Provided By: Patient, Medical Record - Past Medical History Cardio/Vascular: Yes: HTN, Hyperlipdemia Pulmonary: Yes: COPD, O2 Dependent Psych: Yes: Depression - Past Surgical History Additional Surgical History: left lung resection for carcinoid tumor - Alcohol/Substance Use Hx Alcohol Use: No - Smoking History Smoking history: Former smoker Have you smoked in the past 12 months: No If you are a former smoker, when did you quit?: 4 years ago Home Medications - Allergies Allergies/Adverse Reactions: Allergies Allergy/AdvReac Type Severity Reaction Status Date / Time codeine Allergy Verified 04/21/19 18:59 latex Allergy Verified 04/21/19 18:59 Penicillins Allergy Verified 04/21/19 18:59 Sulfa (Sulfonamide Allergy Verified 04/21/19 18:59 Antibiotics) - Home Medications Home Medications: Ambulatory Orders Acetaminophen [Mapap] 650 mg PO PRN 10/26/16 Aspirin [ASA -] 81 mg PO DAILY 10/26/16 Citalopram Hydrobromide [Citalopram HBr] 20 mg PO DAILY 10/26/16 Clonazepam [Klonopin] 1 mg PO HS 10/26/16 Docusate Sodium [Colace -] 300 mg PO HS 10/26/16 clonazePAM [Klonopin -] 0.5 mg PO AM 10/26/16 Albuterol 2.5/Ipratropium 0.5 [Duoneb -] 1 amp NEB Q6H 01/20/18 Albuterol Sulfate [Proair Hfa] 2 puff IH Q4H 01/20/18 Atorvastatin Ca [Lipitor] 40 mg PO HS 01/20/18 Cholecalciferol (Vitamin D3) [Vitamin D3] 1,000 unit PO DAILY 01/20/18 Prednisone See Taper PO DAILY #72 tablet 04/07/18 Albuterol Sulfate Inhaler - [Ventolin Hfa Inhaler -] 2 inh PO PRN 04/21/19 Denosumab [Prolia] 60 mg SQ 04/21/19 Ferrous Sulfate 325 mg PO DAILY 04/21/19 Guaifenesin [Mucinex] 600 mg PO BID 04/21/19 Lactobacillus Acidophilus [Acidophilus] 1 each PO DAILY 04/21/19 Metoprolol Tartrate [Lopressor -] 12.5 mg PO BID 04/21/19 Omeprazole Magnesium [Prilosec Otc] 20 mg PO DAILY 04/21/19 Quetiapine Fumarate [Seroquel -] 25 mg PO HS 04/21/19 Tiotropium [place] [Spiriva] 1 inh DAILY 04/21/19 Family Medical History Family History: Denies Review of Systems - Review of Systems Constitutional: reports: Malaise Eyes: reports: No Symptoms HENT: reports: No Symptoms Neck: reports: No Symptoms Cardiovascular: reports: No Symptoms Respiratory: reports: No Symptoms Gastrointestinal: reports: Abdominal Pain, Diarrhea, Vomiting Genitourinary: reports: No Symptoms Musculoskeletal: reports: No Symptoms Integumentary: reports: No Symptoms Neurological: reports: No Symptoms Endocrine: reports: No Symptoms Hematology/Lymphatic: reports: No Symptoms Psychiatric: reports: No Symptoms Physical Exam Vital Signs: Vital Signs Temperature 98.6 F 04/21/19 17:30 Pulse Rate 132 H 04/21/19 17:30 Respiratory Rate 29 H 04/21/19 17:30 Blood Pressure 139/66 04/21/19 17:30 O2 Sat by Pulse Oximetry (%) 95 04/21/19 17:30 Constitutional: Yes: Calm Eyes: Yes: Conjunctiva Clear Cardiovascular: Yes: Tachycardia, S1, S2 Respiratory: Yes: CTA Bilaterally Gastrointestinal: Yes: Normal Bowel Sounds, Soft Renal/: Yes: [place] Present Edema: No Neurological: Yes: Oriented Psychiatric: Yes: Oriented Labs: CBC, BMP 04/21/19 17:25 04/21/19 12:59 Selected Entries 04/21/19 04/21/19 04/21/19 12:50 13:11 13:20 Blood Pressure 98/63 82/48 L 90/52 L [Right Arm] 04/21/19 13:30 Blood Pressure 95/55 L [Right Arm] Laboratory Tests 04/21/19 04/21/19 04/21/19 12:56 12:59 12:59 WBC 32.5 H* Sodium Potassium 6.0 H Chloride Carbon Dioxide Anion Gap BUN Creatinine Lactic Acid Urine Protein 3+ H Urine Blood 2+ H Urine Bacteria (Auto) Positive 04/21/19 04/21/19 04/21/19 12:59 13:00 17:25 WBC 28.6 H Sodium 138 Potassium Chloride 104 Carbon Dioxide 24 Anion Gap 10 BUN 60.2 H Creatinine 3.9 H Lactic Acid 3.0 H* Urine Protein Urine Blood Urine Bacteria (Auto) Imaging - Results Chest X-ray: Report Reviewed Problem List - Problems (1) Acute renal failure Code(s): N17.9 - ACUTE KIDNEY FAILURE, UNSPECIFIED Qualifiers: Acute renal failure type: unspecified Qualified Code(s): N17.9 - Acute kidney failure, unspecified (2) COPD (chronic obstructive pulmonary disease) Code(s): J44.9 - CHRONIC OBSTRUCTIVE PULMONARY DISEASE, UNSPECIFIED (3) Sepsis Code(s): A41.9 - SEPSIS, UNSPECIFIED ORGANISM Qualifiers: Sepsis type: sepsis due to unspecified organism Sepsis acute organ dysfunction status: with acute organ dysfunction Severe sepsis acute organ dysfunction type: acute liver failure Hepatic coma status: without hepatic coma Severe sepsis shock status: without septic shock Qualified Code(s): A41.9 - Sepsis, unspecified organism; R65.20 - Severe sepsis without septic shock; K72.00 - Acute and subacute hepatic failure without coma Assessment/Plan Current Medications Generic Name Dose Route Start Last Admin Trade Name Freq PRN Reason Stop Dose Admin Albuterol/Ipratropium 1 amp 04/21/19 20:00 Duoneb - NEB RQID FABIOLA Albuterol/Ipratropium 1 amp 04/21/19 18:36 Duoneb - NEB Q6H PRN SHORTNESS OF BREATH Enoxaparin Sodium 40 mg 04/22/19 10:00 Lovenox - SQ DAILY FABIOLA Lactated Ringer's 1,000 ml in 1,000 mls @ 0 mls/hr 04/21/19 13:00 04/21/19 12 :50 Lactated Ringers Solution IV 1,000 mls/hr ASDIR FABIOLA Administration Wide Open Norepinephrine Bitartrate 4, 500 mls @ 37.5 mls/hr 04/21/19 14:30 000 mcg/ Dextrose IV TITR FABIOLA Protocol 5 MCG/MIN Pantoprazole Sodium 80 mg/ 100 mls @ 10 mls/hr 04/21/19 18:00 Sodium Chloride IVPB Q10H FABIOLA 8 MG/HR Cefepime HCl 1 gm/ Dextrose 50 mls @ 100 mls/hr 04/22/19 02:00 IVPB Q8H-IV FABIOLA Protocol Dextrose/Sodium Chloride 1,000 mls @ 125 mls/hr 04/21/19 18:30 D5-1/2ns - IV ASDIR FABIOLA Dextrose/Sodium Chloride 1,000 mls @ 100 mls/hr 04/21/19 19:00 D5-Ns - IV ASDIR FABIOLA Lorazepam 0.5 mg 04/21/19 18:41 Ativan Injection - IM Q8H PRN ANXIETY Methylprednisolone Sodium Succinate 40 mg 04/22/19 02:00 Solu-Medrol - IVPUSH Q8H-IV FABIOLA Ondansetron HCl 4 mg 04/21/19 18:35 Zofran Injection IVPUSH Q6H PRN NAUSEA AND/OR VOMITING Pantoprazole Sodium 40 mg 04/22/19 10:00 Protonix Iv IVPUSH DAILY [facility] Prednisone 20 mg 04/22/19 10:00 Deltasone - PO DAILY FABIOLA Impression 1. [facility] 2. hyperkalemia 3. sepsis 4. copd 5. anxiety 6. hypotension Plan - check urine lyte and shrimp picker to calc fena - repeat bmp to evaluate renal function and potassium - potassium treated medically in er - monitor urine output - bp is improved, pt on pressors - start IV fluids - admit to ICU - follow cultures
[2019-04-21] MEDS: PANTOPRAZOLE SODIUM 80 MG in SODIUM CHLORIDE 100 ML IVPB SCH (19:00)
[2019-04-21 20:19] LABS: EPI CELLS 2.8 /HPF (0-5/HPF); HYALINE CASTS 32 /lpf (0-8); URINE APPEARANCE TURBID; URINE BACTERIA 38.9 /hpf (NEGATIVE); URINE BILIRUBIN NEGATIVE (NEGATIVE); URINE COLOR YELLOW; URINE GLUCOSE (UA) TRACE (NEGATIVE); URINE KETONE NEGATIVE (NEGATIVE); URINE LEUK ESTERASE 2+ (NEGATIVE); URINE NITRITE NEGATIVE (NEGATIVE); URINE PROTEIN 2+ (NEGATIVE); URINE RBC 3 /hpf (0-4); URINE UROBILINOGEN 0.2 mg/dL (0.2-1.0); URINE WBC 67 /hpf (0-5)
[2019-04-21] MEDS: ONDANSETRON 4 MG/2 ML VIAL IVPUSH PRN (20:30)
[2019-04-21 20:31] LABS: YEAST NEGATIVE (NEGATIVE)
[2019-04-21] MEDS: ALBUTEROL SO4 2.5/IPRATROPIUM 0.5 INH SOL 3 ML VIAL.NEB. NEB SCH (20:45)
[2019-04-21] MEDS: DEXTROSE 5%-NORMAL SALINE 1,000 ML IV SCH (20:56)
[2019-04-21 21:23] LABS: ALBUMIN 2.6 g/dl (3.4-5.0); BILIRUBIN,TOTAL 0.5 mg/dL (0.2-1); BLOOD UREA NITROGEN 60.5 mg/dL (7-18); CALCIUM 7.8 mg/dL (8.5-10.1); CREATININE 3.7 mg/dL (0.55-1.3); POTASSIUM 5.3 mmol/L (3.5-5.1); TOT PROT 4.8 g/dl (6.4-8.2)
[2019-04-22] MEDS ORDERED: CEFEPIME HCL 1 GM VIAL (RESTRICTED TO ID) ONE ×3 (01:07→21:11)
[2019-04-22] MEDS ORDERED: DEXTROSE 5%-WATER - 50 ML IVPB ONE (01:08)
[2019-04-22] MEDS ORDERED: CEFEPIME 1 GM in DEXTROSE 5%-WATER - 50 ML IVPB SCH (02:00)
[2019-04-22] MEDS ORDERED: methylPREDNISolone NA SUCC 40 MG/1 ML VIAL IVPUSH SCH (02:00)
[2019-04-22 06:09] LABS: HEMATOCRIT 29.3 % (32.4-45.2); HEMOGLOBIN 9.9 GM/dL (10.7-15.3); MCH 30.5 pg (25.7-33.7); MCHC 33.7 g/dl (32.0-36.0); MEAN CELL VOLUME 90.5 fl (80-96); MEAN PLT VOLUME 7.9 fl (7.5-11.1); PLATELET COUNT 117 K/MM3 (134-434); RBC 3.24 M/mm3 (3.60-5.2); RDW 14.2 % (11.6-15.6); WHITE BLOOD COUNT 24.6 K/mm3 (4.0-10.0)
[2019-04-22 06:30] LABS: INR 1.47 (0.83-1.09); PROTHROMBIN TIME (PATIENT) 17.4 SEC (9.7-13.0)
[2019-04-22] MEDS: ONDANSETRON 4 MG/2 ML VIAL IVPUSH PRN (06:41)
[2019-04-22] MEDS: PANTOPRAZOLE SODIUM 80 MG in SODIUM CHLORIDE 100 ML IVPB SCH ×2 (06:42→17:00)
[2019-04-22 07:35] LABS: ALBUMIN 2.6 g/dl (3.4-5.0); BILIRUBIN,DIRECT 0.1 mg/dL (0.0-0.2); BILIRUBIN,TOTAL 0.4 mg/dL (0.2-1); BLOOD UREA NITROGEN 57.7 mg/dL (7-18); CALCIUM 7.4 mg/dL (8.5-10.1); CREATININE 3.1 mg/dL (0.55-1.3); MAGNESIUM 1.7 mg/dL (1.8-2.4); PHOSPHOROUS 3.1 mg/dL (2.5-4.9); POTASSIUM 4.4 mmol/L (3.5-5.1); TOT PROT 4.8 g/dl (6.4-8.2)
[2019-04-22] MEDS: ALBUTEROL SO4 2.5/IPRATROPIUM 0.5 INH SOL 3 ML VIAL.NEB. NEB SCH ×4 (08:30→20:36)
--- NOTE | 2019-04-22 09:20 | PN ---
Progress Note (short form) - Note Progress Note: ID consult dictated imp/reccd 73 yo female admitted from assisted living with acute onset of vomiting (black fluid) and diarrhea that began Tuesday night she reports eating nuts macadamia/cashews on Tuesday, was well on Tuesday no dysuria, no fevers chronic copd on 2 liters oxygen no travel orders food out frequently known hiatal hernia per patient reports she was hospitalized last year at [facility] when her heart stopped- had MRSA at that time -was intubated and spent 4 to 5 weeks in the hospital also recent cardiac cath that was normal per patient now with hypotension lower and midepigastic discomfort still some loose stools +nausea denies recent antibiotic use on prednisone 10 alternating with 5 mg chronically uses walker sepsis with nausea vomiting diarrhea- pyuria- ?uti, ?gastorenteritis acute renal failure penicillin/sulfa allergy prior history of MRSA infection COPD on steroids no obvious source of bacterema still awaiting official read on ct scan-prelim with no evidence of appendicitis or cholycystitis mrsa screen mrsa isolation continue cefepime adjusted for jameel f/u cultures stool cultures/wbc ordered as well as cdiff vanco level in am Problem List - Problems (1) Sepsis Code(s): A41.9 - SEPSIS, UNSPECIFIED ORGANISM Qualifiers: Sepsis type: sepsis due to unspecified organism Sepsis acute organ dysfunction status: with acute organ dysfunction Severe sepsis acute organ dysfunction type: acute liver failure Hepatic coma status: without hepatic coma Severe sepsis shock status: without septic shock Qualified Code(s): A41.9 - Sepsis, unspecified organism; R65.20 - Severe sepsis without septic shock; K72.00 - Acute and subacute hepatic failure without coma (2) Acute renal failure Code(s): N17.9 - ACUTE KIDNEY FAILURE, UNSPECIFIED Qualifiers: Acute renal failure type: unspecified Qualified Code(s): N17.9 - Acute kidney failure, unspecified (3) COPD (chronic obstructive pulmonary disease) Code(s): J44.9 - CHRONIC OBSTRUCTIVE PULMONARY DISEASE, UNSPECIFIED (4) MRSA (methicillin resistant Staphylococcus aureus) colonization Code(s): Z22.322 - CARRIER OR SUSPECTED CARRIER OF METHICILLIN RESIS STAPH (5) Allergy to multiple antibiotics Code(s): Z88.1 - ALLERGY STATUS TO OTHER ANTIBIOTIC AGENTS STATUS
--- NOTE | 2019-04-22 09:55 | CONSULT ---
Consult Consult Specialty:: Cardiology Referred by:: Medicine Reason for Consultation:: Tachycardia - History of Present Illness Chief Complaint: Vomiting and abdominal pain History of Present Illness: 73 yo female Admitted with abdominal pain, vomiting coffee ground emesis (no blood) and diarrhea with elevated WBC (33K), Creat 3.7 and elevated Lactate. She is being treated for presumed sepsis with broad spectrum Abx Found to have tachycardia and consulted for evalaution of her tachycardia She has a h/o COPD, GERD, HPL and HTN Was admitted in 02/2019 and underwent myocardial stress testing that revealed inferior ischemia. Cardiac cath performed in 02/2019 showed normal coronaries. She denies any current chest paisn or tachycardia, her main complaint it abdominal pain - History Source History Provided By: Patient Limitations to Obtaining History: No Limitations - Past Medical History Cardio/Vascular: Yes: HTN, Hyperlipdemia Pulmonary: Yes: COPD, O2 Dependent ...: No Psych: Yes: Depression - Past Surgical History Additional Surgical History: left lung resection for carcinoid tumor - Alcohol/Substance Use Hx Alcohol Use: No - Smoking History Smoking history: Former smoker Have you smoked in the past 12 months: No If you are a former smoker, when did you quit?: 4 years ago Home Medications - Allergies Allergies/Adverse Reactions: Allergies Allergy/AdvReac Type Severity Reaction Status Date / Time codeine Allergy Verified 04/21/19 18:59 latex Allergy Verified 04/21/19 18:59 Penicillins Allergy Verified 04/21/19 18:59 Sulfa (Sulfonamide Allergy Verified 04/21/19 18:59 Antibiotics) - Home Medications Home Medications: Ambulatory Orders Acetaminophen [Mapap] 650 mg PO PRN 10/26/16 Aspirin [ASA -] 81 mg PO DAILY 10/26/16 Citalopram Hydrobromide [Citalopram HBr] 20 mg PO DAILY 10/26/16 Clonazepam [Klonopin] 1 mg PO HS 10/26/16 Docusate Sodium [Colace -] 300 mg PO HS 10/26/16 clonazePAM [Klonopin -] 0.5 mg PO AM 10/26/16 Albuterol 2.5/Ipratropium 0.5 [Duoneb -] 1 amp NEB Q6H 01/20/18 Albuterol Sulfate [Proair Hfa] 2 puff IH Q4H 01/20/18 Atorvastatin Ca [Lipitor] 40 mg PO HS 01/20/18 Cholecalciferol (Vitamin D3) [Vitamin D3] 1,000 unit PO DAILY 01/20/18 Prednisone See Taper PO DAILY #72 tablet 04/07/18 Albuterol Sulfate Inhaler - [Ventolin Hfa Inhaler -] 2 inh PO PRN 04/21/19 Denosumab [Prolia] 60 mg SQ 04/21/19 Ferrous Sulfate 325 mg PO DAILY 04/21/19 Guaifenesin [Mucinex] 600 mg PO BID 04/21/19 Lactobacillus Acidophilus [Acidophilus] 1 each PO DAILY 04/21/19 Metoprolol Tartrate [Lopressor -] 12.5 mg PO BID 04/21/19 Omeprazole Magnesium [Prilosec Otc] 20 mg PO DAILY 04/21/19 Quetiapine Fumarate [Seroquel -] 25 mg PO HS 04/21/19 Tiotropium [place] [Spiriva] 1 inh DAILY 04/21/19 Review of Systems - Review of Systems Constitutional: reports: Loss of Appetite Gastrointestinal: reports: Abdominal Pain, Diarrhea, Vomiting Physical Exam Vital Signs: Vital Signs Temperature 98.2 F 04/22/19 06:00 Pulse Rate 114 H 04/22/19 06:00 Respiratory Rate 18 04/22/19 06:00 Blood Pressure 111/56 L 04/22/19 06:00 O2 Sat by Pulse Oximetry (%) 99 04/21/19 21:00 Constitutional: Yes: Mild Distress (On breathing treatment) Eyes: Yes: WNL Cardiovascular: Yes: Tachycardia Respiratory: Yes: CTA Bilaterally Gastrointestinal: Yes: Tenderness Edema: No Labs: CBC, BMP 04/22/19 05:15 04/22/19 05:15 Imaging - Results EKG: Image Reviewed (ECG done 04/21/2019 at 13:[address] at 128) Assessment/Plan 73 yo female with HTN, HPL and hiatal hernia here with early sepsis-like clinical picture and tachycardia 1) Tachycardia -Patient has no obstructive CAD on cath done in 02/2019 -Tachycardia is responsive to underlying process, would not treat tachycardia -trop neg -Continue current ICU care and Abx as per critical care team -Will follow along
--- NOTE | 2019-04-22 09:56 | CON.GI ---
Consult Consult Specialty:: GI Reason for Consultation:: Vomiting, diarrhea - History of Present Illness Chief Complaint: 73 y.o. F with COPD, hiatal hernia, ASHD, presents with vomiting, diarrhea, elevated WBC and creatinine. History of Present Illness: See chief complaint. Pt reports no further vomiting since hospital admission. Denies any abdominal pain. Had a small BM today. - History Source History Provided By: Patient, Medical Record Limitations to Obtaining History: No Limitations - Past Medical History Cardio/Vascular: Yes: HTN, Hyperlipdemia Pulmonary: Yes: COPD, O2 Dependent Gastrointestinal: Yes: Hiatal Hernia ...: No Psych: Yes: Depression Additional Medical History: Treated for MRSA at [facility] in the past - Past Surgical History Additional Surgical History: left lung resection for carcinoid tumor - Alcohol/Substance Use Hx Alcohol Use: No - Smoking History Smoking history: Former smoker Have you smoked in the past 12 months: No If you are a former smoker, when did you quit?: 4 years ago Home Medications - Allergies Allergies/Adverse Reactions: Allergies Allergy/AdvReac Type Severity Reaction Status Date / Time codeine Allergy Verified 04/21/19 18:59 latex Allergy Verified 04/21/19 18:59 Penicillins Allergy Verified 04/21/19 18:59 Sulfa (Sulfonamide Allergy Verified 04/21/19 18:59 Antibiotics) - Home Medications Home Medications: Ambulatory Orders Acetaminophen [Mapap] 650 mg PO PRN 10/26/16 Aspirin [ASA -] 81 mg PO DAILY 10/26/16 Citalopram Hydrobromide [Citalopram HBr] 20 mg PO DAILY 10/26/16 Clonazepam [Klonopin] 1 mg PO HS 10/26/16 Docusate Sodium [Colace -] 300 mg PO HS 10/26/16 clonazePAM [Klonopin -] 0.5 mg PO AM 10/26/16 Albuterol 2.5/Ipratropium 0.5 [Duoneb -] 1 amp NEB Q6H 01/20/18 Albuterol Sulfate [Proair Hfa] 2 puff IH Q4H 01/20/18 Atorvastatin Ca [Lipitor] 40 mg PO HS 01/20/18 Cholecalciferol (Vitamin D3) [Vitamin D3] 1,000 unit PO DAILY 01/20/18 Prednisone See Taper PO DAILY #72 tablet 04/07/18 Albuterol Sulfate Inhaler - [Ventolin Hfa Inhaler -] 2 inh PO PRN 04/21/19 Denosumab [Prolia] 60 mg SQ 04/21/19 Ferrous Sulfate 325 mg PO DAILY 04/21/19 Guaifenesin [Mucinex] 600 mg PO BID 04/21/19 Lactobacillus Acidophilus [Acidophilus] 1 each PO DAILY 04/21/19 Metoprolol Tartrate [Lopressor -] 12.5 mg PO BID 04/21/19 Omeprazole Magnesium [Prilosec Otc] 20 mg PO DAILY 04/21/19 Quetiapine Fumarate [Seroquel -] 25 mg PO HS 04/21/19 Tiotropium [place] [Spiriva] 1 inh DAILY 04/21/19 Physical Exam-GI Vital Signs: Vital Signs Temperature 98.2 F 04/22/19 06:00 Pulse Rate 114 H 04/22/19 06:00 Respiratory Rate 18 04/22/19 06:00 Blood Pressure 111/56 L 04/22/19 06:00 O2 Sat by Pulse Oximetry (%) 99 04/21/19 21:00 Cardiovascular: Yes: Tachycardia ...Rectal Exam: Yes: Deferred Labs: CBC, BMP 04/22/19 05:15 04/22/19 05:15 INR, PTT INR 1.47 (0.83-1.09) H 04/22/19 05:15 Imaging - Results Cat Scan: Image Reviewed (Moderately large hiatal hernia. Portion of stomach below diaphragm is distended.) Assessment/Plan Elevated WBC, elevated creatinine, vomiting. The distended stomach may be a sign of gastric outlet obstruction. Gastric outlet obstrucion from either peptic ulcer disease or malignancy (antral, duodenal, pancreatic) could account for her vomiting and dehydration. Alternatively she could simply be septic from another source. Recommend continue hydration. If blood cultures are negative would consider EGD or UGI series later in the week.
[2019-04-22] MEDS ORDERED: PANTOPRAZOLE SODIUM 40 MG VIAL IVPUSH SCH (10:00)
[2019-04-22] MEDS ORDERED: DEXTROSE 5%-WATER 100 ML IVPB ONE ×2 (10:20→21:11)
[2019-04-22] MEDS: predniSONE 20 MG TABLET (UD) PO SCH (10:30)
[2019-04-22] MEDS: CEFEPIME 1 GM in DEXTROSE 5%-WATER 100 ML IVPB SCH ×2 (10:30→21:52)
[2019-04-22] MEDS: ENOXAPARIN NA (PORCINE) 40 MG/0.4 ML DISP.SYRIN SQ SCH (10:30)
--- NOTE | 2019-04-22 12:32 | PN ---
Progress Note (short form) - Note Progress Note: This is 73-year-old female transferred from assisted living with weakness and sepsis and she was admitted to the ICU yesterday with sepsis unknown cause. Today she is comfortable still having nausea but she is hungry she denies any fever chills her level of weakness is improved from yesterday Her blood results today which are coming in her creatinine is better than yesterday hemogram gone down probably due to hydration and her white cell is down also from 32 in mid 20s. Vital Signs Period Temp Pulse Resp BP Sys/Cárdenas Pulse Ox Last 24 Hr 98.2 F-98.7 F 114-141 18-34 82-139/48-82 93-100 Examination She looks comfortable vital sign is she is slightly tachycardic but she is in sinus tachycardia. HEENT she still have a dry mouth even though she is on IV fluids Neck says supple no JVD Lungs and the chest she has bilateral symmetrical and lungs are clear on auscultation no bronchial breathing noted Abdomen soft diffuse tenderness but no rebound tenderness. Bowel sounds are normal Heart examination shows she is tachycardic but no other abnormality noted. Extremities no edema. Neurologically she is alert awake oriented. CBC, BMP 04/22/19 05:15 04/22/19 05:15 Current Medications Albuterol/Ipratropium (Duoneb -) 1 amp NEB RQID [facility] Last Admin: 04/22/19 08:30 Dose: 1 amp Albuterol/Ipratropium (Duoneb -) 1 amp NEB Q6H PRN PRN Reason: SHORTNESS OF BREATH Enoxaparin Sodium (Lovenox -) 40 mg SQ DAILY [facility] Last Admin: 04/22/19 10:30 Dose: 40 mg Lactated Ringer's (Lactated Ringers Solution) 1,000 ml in 1,000 mls @ 0 mls/hr IV ASDIR [facility] Last Admin: 04/21/19 12:50 Dose: 1,000 mls/hr Pantoprazole Sodium 80 mg/ (Sodium Chloride) 100 mls @ 10 mls/hr IVPB Q10H [facility] Last Admin: 04/22/19 06:42 Dose: 10 mls/hr Dextrose/Sodium Chloride (D5-Ns -) 1,000 mls @ 100 mls/hr IV ASDIR [facility] Last Admin: 04/21/19 20:56 Dose: 100 mls/hr Cefepime HCl 1 gm/ Dextrose 100 mls @ 200 mls/hr IVPB BID FABIOLA; Protocol Last Admin: 04/22/19 10:30 Dose: 200 mls/hr Lorazepam (Ativan Injection -) 0.5 mg IM Q8H PRN PRN Reason: ANXIETY Ondansetron HCl (Zofran Injection) 4 mg IVPUSH Q6H PRN PRN Reason: NAUSEA AND/OR VOMITING Last Admin: 04/22/19 06:41 Dose: 4 mg Prednisone (Deltasone -) 20 mg PO DAILY FABIOLA Last Admin: 04/22/19 10:30 Dose: 20 mg Assessment and plan Acute sepsis Etiology still unknown determine but she is on IV fluids IV antibiotic infectious disease is seen her she is improving I will continue at this time same antibiotics and fluids and I have ordered on her clear liquid diet. Acute renal insufficiency possibly on the top of chronic due to dehydration or diarrhea or other problems She is already seen by nephrology continue fluids at this time COPD and she had no respiratory symptoms at this time but continue BiPAP and her home bronchodilators Tachycardia and hypotension and other cardiac problem she is seen by the radio maintainer We will continue current care she is much improved today. All the consultation including ID pulmonary and cardiac are appreciated and read and agreed. Patient's been spent 1 hour of intensive care management today Visit type - Emergency Visit Emergency Visit: Yes ED Registration Date: 04/21/19 Care time: The patient presented to the Emergency Department on the above date and was hospitalized for further evaluation of their emergent condition. - New Patient This patient is new to me today: No - Critical Care Critical Care patient: Yes Total Critical Care Time (in minutes): 60 Critical Care Statement: The care of this patient involved high complexity decision making to prevent further life threatening deterioration of the patient 's condition and/or to evaluate & treat vital organ system(s) failure or risk of failure. - Discharge Referral Referred to [facility] No
--- NOTE | 2019-04-22 12:33 | CONS ---
DATE OF CONSULTATION: DATE OF DICTATION: 04/22/2019 REQUESTED BY: Hospitalist service This is a 73-year-old woman admitted from [facility] with acute onset of vomiting black fluid, and diarrhea that began Tuesday night. She reports eating nuts, macadamias and cashews, on Tuesday, was well on Tuesday. She had no dysuria, no fevers, no cough. She has a history of chronic COPD, is on 2 L oxygen. There has been no travel. She orders food out regularly. She has a known hiatal hernia. She reports she was hospitalized last year at [facility] when her heart stopped. She had MRSA at that time and was intubated and Veronica 4 to 5 weeks there. Details are not known except she told me she had MRSA. She also had a recent cardiac catheterization that was normal, per the patient. In the ER, she was noted to be hypotensive with lower and midepigastric discomfort and she was noted to have an elevated white count of 32,000 and was admitted to the ICU. She was also noted to be in new renal failure with a creatinine of 3.7. Her lactic acid was elevated as well at 4.7. She was empirically treated with vancomycin and cefepime as she has a PENICILLIN allergy. Preliminary report on CAT scan of her abdomen and pelvis is negative for any evidence of appendicitis, colitis, or cholecystitis. She is currently awake and alert in the ICU. Her past medical history is notable for COPD. She is on oxygen at home. She is on 2 L. Hypertension, hyperlipidemia, osteoporosis, anxiety, coronary artery disease status post catheterization, generalized muscle weakness. She ambulates with a walker. Vitamin D deficiency and history of anemia. Surgical history is notable for hysterectomy. She has had a resection of her left lung. She has had bilateral cataract surgery. She has had a right wrist fracture and she has a left hip prosthesis. SOCIAL HISTORY: She resides at [facility]. She denies any alcohol use. Former smoker. She is allergic to PENICILLIN. The nature of the allergy is not known. She is allergic to CODEINE, LATEX, and SULFA as well. Her medications at the [facility] include aspirin, Celexa, Klonopin, Colace, Lopressor, omeprazole, Ellipta inhaler, verapamil, albuterol, atorvastatin, vitamin D, and she is on prednisone 10 mg alternating with 5 mg daily. REVIEW OF SYSTEMS: As per HPI. She still notes that when she coughs, occasionally she a small bowel movement. She notes her stools have been green. PHYSICAL EXAMINATION: General: She is awake and alert. Vital Signs: Temperature is 96.2. Pulse 114. Blood pressure 111/56. Respiratory rate 18. HEENT: Normocephalic. Her eyes are anicteric. She has no thrush or pharyngitis. Neck: Supple. Lungs: Diminished breath sounds at the bases. Otherwise clear. Heart: Regular rate and rhythm. Abdomen: Soft. She has mild midepigastric tenderness to deep palpation. There is no rebound or guarding. She has no CVA or suprapubic tenderness. Extremities: Without edema. Her white count on admission was 32.5, this morning is 24.6, hemoglobin 9.9, platelets 117, INR is 1.4. This morning, BUN 57 and creatinine 3.1. Lactic acid is now 1.6. Her AST is 131, ALT of 76. UA has 2+ leukocytes with 67 white cells, and urine and blood cultures are pending. CAT scan findings are as stated. In summary, this is a 73-year-old woman admitted with sepsis with nausea, vomiting, diarrhea. She has pyuria as well. No obvious source except could this be UTI or gastroenteritis. Urine and blood cultures have been sent. Would send stools for culture, white cells, as well as C difficile. There is no prior history of antibiotic use acutely no failure. Will adjust her antibiotics for her renal failure. She has a PENICILLIN and SULFA allergy. Prior history of MRSA infection so will isolate her and repeat nares cultures. COPD, on steroids. No signs of pneumonia. Would continue cefepime, adjusted for [facility], MRSA screen, MRSA isolation. Follow up cultures. Stool cultures and white cells ordered as well as C difficile, with a vancomycin level in the morning. Further recommendations to follow. Austin [id number]
--- NOTE | 2019-04-22 13:42 | PN ---
Progress Note (short form) - Note Progress Note: Progress Note Pulm/CCM Pt seen and examined in the ICU. Nausea mostly resolved. With regular moist cough with clear phlegm. Regular small BM's dark brown loose. Active Medications Albuterol/Ipratropium (Duoneb -) 1 amp NEB RQID FABIOLA Last Admin: 04/22/19 12:42 Dose: 1 amp Albuterol/Ipratropium (Duoneb -) 1 amp NEB Q6H PRN PRN Reason: SHORTNESS OF BREATH Enoxaparin Sodium (Lovenox -) 40 mg SQ DAILY [facility] Last Admin: 04/22/19 10:30 Dose: 40 mg Lactated Ringer's (Lactated Ringers Solution) 1,000 ml in 1,000 mls @ 0 mls/hr IV ASDIR FABIOLA Last Admin: 04/21/19 12:50 Dose: 1,000 mls/hr Pantoprazole Sodium 80 mg/ (Sodium Chloride) 100 mls @ 10 mls/hr IVPB Q10H F[facility]IOLA Last Admin: 04/22/19 06:42 Dose: 10 mls/hr Dextrose/Sodium Chloride (D5-Ns -) 1,000 mls @ 100 mls/hr IV ASDIR FABIOLA Last Admin: 04/21/19 20:56 Dose: 100 mls/hr Cefepime HCl 1 gm/ Dextrose 100 mls @ 200 mls/hr IVPB BID [facility]; Protocol Last Admin: 04/22/19 10:30 Dose: 200 mls/hr Lorazepam (Ativan Injection -) 0.5 mg IM Q8H PRN PRN Reason: ANXIETY Ondansetron HCl (Zofran Injection) 4 mg IVPUSH Q6H PRN PRN Reason: NAUSEA AND/OR VOMITING Last Admin: 04/22/19 06:41 Dose: 4 mg Prednisone (Deltasone -) 20 mg PO DAILY FABIOLA Last Admin: 04/22/19 10:30 Dose: 20 mg Vital Signs Period Temp Pulse Resp BP Sys/Cárdenas Pulse Ox Last 24 Hr 98.2 F-98.7 F 114-141 18-34 93-139/49-82 93-100 Intake & Output 04/19/19 04/20/19 04/21/19 04/22/19 23:59 23:59 23:59 23:59 Intake Total 2200 1320 Output Total 800 1000 Balance 1400 320 Weight 75.6 kg 75.6 kg Exam: Gen: Awake in NAD HEENT: PERRL, MMM Resp: Diminished bases, slight rales; regular moist cough with clear phlegm CV: S1S2, tachy RRR, no m/r/g noted Ext: WWP, no edema, + pulses Skin: c/d/i CBC, BMP 04/22/19 05:15 04/22/19 05:15 Hepatic Panel Total Bilirubin 0.4 mg/dL (0.2-1) 04/22/19 05:15 Direct Bilirubin 0.1 mg/dL (0.0-0.2) 04/22/19 05:15 AST 131 U/L (15-37) H 04/22/19 05:15 ALT 76 U/L (13-61) H 04/22/19 05:15 Alkaline Phosphatase 86 U/L (45-117) 04/22/19 05:15 Albumin 2.6 g/dl (3.4-5.0) L 04/22/19 05:15 Imaging - Results Chest X-ray: Report Reviewed, Image Reviewed Cat Scan: Report Reviewed, Image Reviewed Problem List - Problems (1) COPD (chronic obstructive pulmonary disease) Code(s): J44.9 - CHRONIC OBSTRUCTIVE PULMONARY DISEASE, UNSPECIFIED (2) Acute renal failure Code(s): N17.9 - ACUTE KIDNEY FAILURE, UNSPECIFIED Qualifiers: Acute renal failure type: unspecified Qualified Code(s): N17.9 - Acute kidney failure, unspecified (3) Sepsis Code(s): A41.9 - SEPSIS, UNSPECIFIED ORGANISM Qualifiers: Sepsis type: sepsis due to unspecified organism Sepsis acute organ dysfunction status: with acute organ dysfunction Severe sepsis acute organ dysfunction type: acute liver failure Hepatic coma status: without hepatic coma Severe sepsis shock status: without septic shock Qualified Code(s): A41.9 - Sepsis, unspecified organism; R65.20 - Severe sepsis without septic shock; K72.00 - Acute and subacute hepatic failure without coma (4) UGIB (upper gastrointestinal bleed) Code(s): K92.2 - GASTROINTESTINAL HEMORRHAGE, UNSPECIFIED Assessment/Plan This is a 73 yo woman from [place] w/ multiple medical problems: COPD on LTOT (2lpm) , JANETTE on noc BiPAP, 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 GI: nausea and vomiting w/ Coffee ground emesis c/f UGIB vs esophagitis. h/o GERD -GI consulted -IV access -active type and screen -NPO -cbc q4-6hr -transfuse for Hgb <7.0, INR <2.5, PLT <50 -PPI drip, consider titrate to BID ID: leukocytosis, retrocardiac opacity but other signs of acute respiratory pathology on baseline oxygen level, diarrhea w/ no recent ABX noted but given WBC >30 also c/f c. diff -f/u andrews culture -received cefepime and vanco in ED -trend procalcitonin -send c. diff -ID consult re: ABX Renal: [facility] likely prerenal in setting of dehydration r/t n/v and diarrhea. No obstruction seen on CT or abd u/s -Renal consult -Renal dose all medications -send urine lytes -strict I&Os Pulm: COPD on LTOT, JANETTE. No respiratory complaints, persistent cough -cont O2 for Sat >90% -BiPAP at night -cont home bronchodilators -Prednisone 10mg at home with double dose (20mg) given stress state CV: hypotension likely 2/2 hypovolemia resolved w/ IVFs, lactic acidosis likely 2/2 dehydration -Hold IV fluids -trend lactic acidosis -hold home ASA given c/f GIB -hold BB given hypotension -hold statin given transaminitis Neuro: MDD -seroquel pm -home dose clonazepam 0.5mg qam, 1mg qpm -citalopram 20mg PPX: -GI? PPI drip -DVT SCDs given c/f UGIB Estrella Ace,HERBERTP Pulm/CCM 35mins
--- NOTE | 2019-04-22 16:14 | PN ---
Progress Note, Physician History of Present Illness: Pt seen and examined at bedside. She still has diarrhea. She feels that her breathing is improved. - Current Medication List Current Medications: Active Medications Albuterol/Ipratropium (Duoneb -) 1 amp NEB RQID [facility] Last Admin: 04/22/19 12:42 Dose: 1 amp Albuterol/Ipratropium (Duoneb -) 1 amp NEB Q6H PRN PRN Reason: SHORTNESS OF BREATH Enoxaparin Sodium (Lovenox -) 40 mg SQ DAILY [facility] Last Admin: 04/22/19 10:30 Dose: 40 mg Lactated Ringer's (Lactated Ringers Solution) 1,000 ml in 1,000 mls @ 0 mls/hr IV ASDIR [facility] Last Admin: 04/21/19 12:50 Dose: 1,000 mls/hr Pantoprazole Sodium 80 mg/ (Sodium Chloride) 100 mls @ 10 mls/hr IVPB Q10H [facility] Last Admin: 04/22/19 06:42 Dose: 10 mls/hr Dextrose/Sodium Chloride (D5-Ns -) 1,000 mls @ 100 mls/hr IV ASDIR [facility] Last Admin: 04/21/19 20:56 Dose: 100 mls/hr Cefepime HCl 1 gm/ Dextrose 100 mls @ 200 mls/hr IVPB BID [facility]; Protocol Last Admin: 04/22/19 10:30 Dose: 200 mls/hr Lorazepam (Ativan Injection -) 0.5 mg IM Q8H PRN PRN Reason: ANXIETY Ondansetron HCl (Zofran Injection) 4 mg IVPUSH Q6H PRN PRN Reason: NAUSEA AND/OR VOMITING Last Admin: 04/22/19 06:41 Dose: 4 mg Prednisone (Deltasone -) 20 mg PO DAILY [facility] Last Admin: 04/22/19 10:30 Dose: 20 mg - Objective Vital Signs: Vital Signs Temperature 98.2 F 04/22/19 06:00 Pulse Rate 133 H 04/22/19 14:00 Respiratory Rate 20 04/22/19 14:00 Blood Pressure 112/63 04/22/19 14:00 O2 Sat by Pulse Oximetry (%) 99 04/22/19 10:00 Constitutional: Yes: Calm Eyes: Yes: Conjunctiva Clear HENT: Yes: Atraumatic Cardiovascular: Yes: Tachycardia, S1, S2 Respiratory: Yes: On Nasal O2 Gastrointestinal: Yes: Soft Genitourinary: Yes: [place] Present Musculoskeletal: Yes: WNL Edema: No Integumentary: Yes: WNL Neurological: Yes: Oriented Psychiatric: Yes: Oriented Labs: CBC, BMP 04/22/19 05:15 04/22/19 05:15 INR, PTT INR 1.47 (0.83-1.09) H 04/22/19 05:15 Problem List - Problems (1) Acute renal failure Code(s): N17.9 - ACUTE KIDNEY FAILURE, UNSPECIFIED Qualifiers: Acute renal failure type: unspecified Qualified Code(s): N17.9 - Acute kidney failure, unspecified (2) COPD (chronic obstructive pulmonary disease) Code(s): J44.9 - CHRONIC OBSTRUCTIVE PULMONARY DISEASE, UNSPECIFIED (3) Sepsis Code(s): A41.9 - SEPSIS, UNSPECIFIED ORGANISM Qualifiers: Sepsis type: sepsis due to unspecified organism Sepsis acute organ dysfunction status: with acute organ dysfunction Severe sepsis acute organ dysfunction type: acute liver failure Hepatic coma status: without hepatic coma Severe sepsis shock status: without septic shock Qualified Code(s): A41.9 - Sepsis, unspecified organism; R65.20 - Severe sepsis without septic shock; K72.00 - Acute and subacute hepatic failure without coma Assessment/Plan Current Medications Generic Name Dose Route Start Last Admin Trade Name Freq PRN Reason Stop Dose Admin Albuterol/Ipratropium 1 amp 04/21/19 20:00 04/22/19 12:42 Duoneb - NEB 1 amp RQID FABIOLA Administration Albuterol/Ipratropium 1 amp 04/21/19 18:36 Duoneb - NEB Q6H PRN SHORTNESS OF BREATH Enoxaparin Sodium 40 mg 04/22/19 10:00 04/22/19 10:30 Lovenox - SQ 40 mg DAILY F[facility]IOLA Administration Lactated Ringer's 1,000 ml in 1,000 mls @ 0 mls/hr 04/21/19 13:00 04/21/19 12 :50 Lactated Ringers Solution IV 1,000 mls/hr ASDIR FABIOLA Administration Wide Open Pantoprazole Sodium 80 mg/ 100 mls @ 10 mls/hr 04/21/19 18:00 04/22/19 06:42 Sodium Chloride IVPB 10 mls/hr Q10H FABIOLA Administration 8 MG/HR Dextrose/Sodium Chloride 1,000 mls @ 100 mls/hr 04/21/19 19:00 04/21/19 20:56 D5-Ns - IV 100 mls/hr ASDIR FABIOLA Administration Cefepime HCl 1 gm/ Dextrose 100 mls @ 200 mls/hr 04/22/19 10:00 04/22/19 10: 30 IVPB 200 mls/hr BID FABIOLA Administration Protocol Lorazepam 0.5 mg 04/21/19 18:41 Ativan Injection - IM Q8H PRN ANXIETY Ondansetron HCl 4 mg 04/21/19 18:35 04/22/19 06:41 Zofran Injection IVPUSH 4 mg Q6H PRN Administration NAUSEA AND/OR VOMITING Prednisone 20 mg 04/22/19 10:00 04/22/19 10:30 Deltasone - PO 20 mg DAILY [facility] Administration Impression 1. [facility] 2. hyperkalemia 3. sepsis 4. copd 5. anxiety 6. hypotension Plan - renal function is improving - cont fluids for now - repeat labs in am - potassium is improved - monitor pulse ox
--- NOTE | 2019-04-22 17:05 | EKG ---
Test Reason : Blood Pressure : / mmHG Vent. Rate : 128 BPM Atrial Rate : 128 BPM P-R Int : 118 ms QRS Dur : 064 ms QT Int : 284 ms P-R-T Axes : 081 011 073 degrees QTc Int : 414 ms SINUS TACHYCARDIA NONSPECIFIC ST AND T WAVE ABNORMALITY ABNORMAL ECG WHEN COMPARED WITH ECG OF 01-APR-2018 19:09, PREMATURE VENTRICULAR COMPLEXES ARE NO LONGER PRESENT NONSPECIFIC T WAVE ABNORMALITY NOW EVIDENT IN LATERAL LEADS Confirmed by NETTE SIMENTAL MD ([id number]) on 04/22/2019 5:05:23 PM Referred By: Confirmed By:NETTE SIMENTAL MD
[2019-04-22] MEDS ORDERED: FUROSEMIDE 40 MG/4 ML INJECTABLE VIAL ONE (18:05)
[2019-04-22] MEDS: LACTATED RINGERS SOLUTION 1,000 ML/1,000 ML INFUS.BAG IV SCH (18:08)
[2019-04-22] MEDS ORDERED: FUROSEMIDE 40 MG/4 ML INJECTABLE VIAL IVPUSH ONE (18:10)
[2019-04-22] MEDS ORDERED: ALBUTEROL SO4 2.5/IPRATROPIUM 0.5 INH SOL 3 ML VIAL.NEB. NEB STA (18:16)
[2019-04-22] MEDS: DEXTROSE 5%-NORMAL SALINE 1,000 ML IV SCH (21:50)
[2019-04-22] MEDS: guaiFENesin/D-METHORPHAN HB 10 ML UNIT-DOSE CUPS PO PRN (21:51)
[2019-04-23] MEDS: LORazepam 2 MG/ML SDV VIAL IM PRN (01:40)
[2019-04-23] MEDS: PANTOPRAZOLE SODIUM 80 MG in SODIUM CHLORIDE 100 ML IVPB SCH ×2 (01:41→12:32)
[2019-04-23 06:59] LABS: BASO % 0.1 % (0-2.0); EOS % 1.4 % (0-4.5); HEMATOCRIT 28.9 % (32.4-45.2); HEMOGLOBIN 9.6 GM/dL (10.7-15.3); LYMPH % 4.6 % (8-40); MCH 30.4 pg (25.7-33.7); MCHC 33.3 g/dl (32.0-36.0); MEAN CELL VOLUME 91.3 fl (80-96); MEAN PLT VOLUME 8.1 fl (7.5-11.1); MONO % 9.5 % (3.8-10.2); NEUT % 84.4 % (42.8-82.8); PLATELET COUNT 75 K/MM3 (134-434); RBC 3.16 M/mm3 (3.60-5.2); RDW 14.2 % (11.6-15.6); WHITE BLOOD COUNT 6.4 K/mm3 (4.0-10.0)
[2019-04-23 07:18] LABS: ALBUMIN 2.5 g/dl (3.4-5.0); BILIRUBIN,TOTAL 0.7 mg/dL (0.2-1); BLOOD UREA NITROGEN 44.6 mg/dL (7-18); CALCIUM 7.4 mg/dL (8.5-10.1); CREATININE 2.4 mg/dL (0.55-1.3); POTASSIUM 4.3 mmol/L (3.5-5.1); TOT PROT 4.7 g/dl (6.4-8.2)
--- NOTE | 2019-04-23 07:25 | PN ---
Physical Exam: SUBJECTIVE: Patient seen and examined at bedside morning rounds. No focal complaints, continued difficulty breathing, but improved from yesterday. IV Fluids held then 20mg lasix given over the weekend for concern of fluid overload. Patient continues to have multiple episodes of diarrhea, worse with coughing. C diff culture not received by lab over the weekend, resent this morning. Plan to touch base with GI, EGD vs Upper GI series in this patient with inability to lay flat / restrictive lung disease / JANETTE. Leukocytosis (wbc 32.5), Hgb 12.2, SCr 3.9 from baseline 0.9, mild transaminitis (AST/ALT 220/102) and a lactate of 3.0. CXR w/ retrocardiac opacity. OBJECTIVE: Vital Signs Period Temp Pulse Resp BP Sys/Cárdenas Pulse Ox Last 24 Hr 98.9 F 120-133 17-25 101-146/63-85 96-99 GENERAL: The patient is awake, alert, and fully oriented, in no acute distress. HEAD: Normal with no signs of trauma. EYES: PERRL, extraocular movements intact, sclera anicteric, conjunctiva clear. No ptosis. ENT: Ears normal, nares patent, oropharynx clear without exudates, moist mucous membranes. NECK: Trachea midline, full range of motion, supple. LUNGS: Diminished bases, slight rales; regular moist cough with clear phlegm HEART: Regular rate and rhythm, S1, S2 without murmur, rub or gallop. ABDOMEN: Soft, nontender, nondistended, normoactive bowel sounds, no guarding, no rebound, no hepatosplenomegaly, no masses. EXTREMITIES: 2+ pulses, warm, well-perfused, no edema. NEUROLOGICAL: Cranial nerves II through XII grossly intact. Normal speech, gait not observed. PSYCH: Normal mood, normal affect. SKIN: Warm, dry, normal turgor, no rashes or lesions noted Laboratory Results - last 24 hr 04/21/19 04/22/19 04/23/19 10:54 05:15 05:40 Sodium 142 Potassium 4.4 Chloride 112 H Carbon Dioxide 27 Anion Gap 3 L BUN 57.7 H Creatinine 3.1 H Est GFR (CKD-EPI)AfAm 16.48 Est GFR (CKD-EPI)NonAf 14.22 Random Glucose 133 H Calcium 7.4 L Phosphorus 3.1 Magnesium 1.7 L Total Bilirubin 0.4 Direct Bilirubin 0.1 AST 131 H ALT 76 H Alkaline Phosphatase 86 Total Protein 4.8 L Albumin 2.6 L Stool Occult Blood Positive Random Vancomycin 12.1 L 04/23/19 05:40 Sodium 145 Potassium 4.3 Chloride 114 H Carbon Dioxide 28 Anion Gap 3 L BUN 44.6 H Creatinine 2.4 H Est GFR (CKD-EPI)AfAm 22.46 Est GFR (CKD-EPI)NonAf 19.38 Random Glucose 147 H Calcium 7.4 L Phosphorus Magnesium Total Bilirubin 0.7 Direct Bilirubin AST 65 H ALT 53 Alkaline Phosphatase 80 Total Protein 4.7 L Albumin 2.5 L Stool Occult Blood Random Vancomycin Active Medications Generic Name Dose Route Start Last Admin Trade Name Freq PRN Reason Stop Dose Admin Albuterol/Ipratropium 1 amp 04/21/19 20:00 04/22/19 20:36 Duoneb - NEB 1 amp RQID FABIOLA Administration Enoxaparin Sodium 40 mg 04/22/19 10:00 04/22/19 10:30 Lovenox - SQ 40 mg DAILY F[facility]IOLA Administration Guaifenesin 10 ml 04/22/19 20:25 04/22/19 21:51 Robitussin Dm - PO 10 ml Q6H PRN Administration COUGH Lactated Ringer's 1,000 ml in 1,000 mls @ 0 mls/hr 04/21/19 13:00 04/22/19 18 :08 Lactated Ringers Solution IV Not Given ASDIR FABIOLA Wide Open Pantoprazole Sodium 80 mg/ 100 mls @ 10 mls/hr 04/21/19 18:00 04/23/19 01:41 Sodium Chloride IVPB 10 mls/hr Q10H FABIOLA Administration 8 MG/HR Cefepime HCl 1 gm/ Dextrose 100 mls @ 200 mls/hr 04/22/19 10:00 04/22/19 21: 52 IVPB 200 mls/hr BID FABIOLA Administration Protocol Lorazepam 0.5 mg 04/21/19 18:41 04/23/19 01:40 Ativan Injection - IM 0.5 mg Q8H PRN Administration ANXIETY Ondansetron HCl 4 mg 04/21/19 18:35 04/22/19 06:41 Zofran Injection IVPUSH 4 mg Q6H PRN Administration NAUSEA AND/OR VOMITING Prednisone 20 mg 04/22/19 10:00 04/22/19 10:30 Deltasone - PO 20 mg DAILY [facility] Administration ASSESSMENT/PLAN: This is a 73 yo woman from [place] w/ multiple medical problems: COPD on LTOT (2lpm) , JANETTE on noc BiPAP, 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 Now on antibiotics for ?Pulmonary vs GI source of infection. GI: Nausea and vomiting w/ Coffee ground emesis c/f UGIB vs esophagitis. H/o GERD. Plan for upper GI series to evaluate for ?gastric outlet obstruction. -GI consulted, recommended EGD vs UGI, spoke with Dr. Gore, agrees with UGI series, appreciate recs -IV access -Active type and screen -NPO -CBC q4-6hr -Transfuse for Hgb <7.0, INR <2.5, PLT <50 -PPI drip, consider titrate to BID -F/u Upper GI Series ID: Leukocytosis, retrocardiac opacity but other signs of acute respiratory pathology on baseline oxygen level, diarrhea w/ no recent ABX noted but given WBC >30 also c/f c. diff -F/u andrews culture -Received cefepime and vanco in ED -Trend procalcitonin -F/u C. diff and other stool studies -ID consult re: ABX, appreciate recs, continue Cefepime Renal: [facility] likely prerenal in setting of dehydration r/t n/v and diarrhea. No obstruction seen on CT or abd u/s -Renal consult -Renal dose all medications -Send urine lytes -Strict I&Os Pulm: COPD on LTOT, JANETTE. No respiratory complaints, persistent cough -Cont O2 for Sat >90% -BiPAP at night -Cont home bronchodilators -Prednisone 10mg at home with double dose (20mg) given stress state CV: Hypotension likely 2/2 hypovolemia resolved w/ IVFs, lactic acidosis likely 2/2 dehydration -Hold IV fluids -Trend lactic acidosis -Hold home ASA given c/f GIB -Hold BB given hypotension -Hold statin given transaminitis Neuro: MDD -Seroquel pm -Home dose clonazepam 0.5mg qam, 1mg qpm -Citalopram 20mg PPX: -GI? PPI drip -DVT SCDs given c/f UGIB Visit type - Emergency Visit Emergency Visit: Yes ED Registration Date: 04/21/19 Care time: The patient presented to the Emergency Department on the above date and was hospitalized for further evaluation of their emergent condition. - New Patient This patient is new to me today: Yes Date on this admission: 04/23/19 - Critical Care Critical Care patient: Yes Total Critical Care Time (in minutes): 36 Critical Care Statement: The care of this patient involved high complexity decision making to prevent further life threatening deterioration of the patient 's condition and/or to evaluate & treat vital organ system(s) failure or risk of failure. ATTENDING PHYSICIAN STATEMENT I saw and evaluated the patient. I reviewed the resident's note and discussed the case with the resident. I agree with the resident's findings and plan as documented. SUBJECTIVE: OBJECTIVE: ASSESSMENT AND PLAN:
[2019-04-23] MEDS: ALBUTEROL SO4 2.5/IPRATROPIUM 0.5 INH SOL 3 ML VIAL.NEB. NEB SCH ×4 (08:08→20:25)
[2019-04-23] MEDS ORDERED: DEXTROSE 5%-WATER 100 ML IVPB ONE ×2 (09:16→20:59)
[2019-04-23] MEDS ORDERED: CEFEPIME HCL 1 GM VIAL (RESTRICTED TO ID) ONE ×2 (09:16→20:59)
[2019-04-23] MEDS: CEFEPIME 1 GM in DEXTROSE 5%-WATER 100 ML IVPB SCH ×2 (09:19→21:17)
[2019-04-23] MEDS: guaiFENesin/D-METHORPHAN HB 10 ML UNIT-DOSE CUPS PO PRN (09:19)
[2019-04-23] MEDS: predniSONE 20 MG TABLET (UD) PO SCH (09:19)
[2019-04-23] MEDS: ENOXAPARIN NA (PORCINE) 40 MG/0.4 ML DISP.SYRIN SQ SCH (09:19)
[2019-04-23 09:58] LABS: PLATELET ESTIMATE DECREASED
--- NOTE | 2019-04-23 10:32 | PN ---
Progress Note, Physician Chief Complaint: weakness History of Present Illness: still weak. highly anxious. mildly breathless--typical for her anxiety sx she says. denies cp, leg swelling, syncope - Current Medication List Current Medications: Active Medications Albuterol/Ipratropium (Duoneb -) 1 amp NEB RQID [facility] Last Admin: 04/23/19 08:08 Dose: Not Given Enoxaparin Sodium (Lovenox -) 40 mg SQ DAILY [facility] Last Admin: 04/23/19 09:19 Dose: 40 mg Guaifenesin (Robitussin Dm -) 10 ml PO Q6H PRN PRN Reason: COUGH Last Admin: 04/23/19 09:19 Dose: 10 ml Lactated Ringer's (Lactated Ringers Solution) 1,000 ml in 1,000 mls @ 0 mls/hr IV ASDIR [facility] Last Admin: 04/22/19 18:08 Dose: Not Given Pantoprazole Sodium 80 mg/ (Sodium Chloride) 100 mls @ 10 mls/hr IVPB Q10H [facility] Last Admin: 04/23/19 01:41 Dose: 10 mls/hr Cefepime HCl 1 gm/ Dextrose 100 mls @ 200 mls/hr IVPB BID [facility]; Protocol Last Admin: 04/23/19 09:19 Dose: 200 mls/hr Lorazepam (Ativan Injection -) 0.5 mg IM Q8H PRN PRN Reason: ANXIETY Last Admin: 04/23/19 01:40 Dose: 0.5 mg Ondansetron HCl (Zofran Injection) 4 mg IVPUSH Q6H PRN PRN Reason: NAUSEA AND/OR VOMITING Last Admin: 04/22/19 06:41 Dose: 4 mg Prednisone (Deltasone -) 20 mg PO DAILY [facility] Last Admin: 04/23/19 09:19 Dose: 20 mg - Objective Vital Signs: Vital Signs Temperature 98.9 F 04/22/19 18:27 Pulse Rate 126 H 04/23/19 08:00 Respiratory Rate 28 H 04/23/19 08:00 Blood Pressure 140/81 04/23/19 08:00 O2 Sat by Pulse Oximetry (%) 96 04/22/19 21:00 Constitutional: Yes: Well Nourished, No Distress, Calm Cardiovascular: Yes: Regular Rate and Rhythm, S1, S2. No: JVD, Gallop, Murmur Respiratory: Yes: Regular, CTA Bilaterally. No: Accessory Muscle Use, Rales, Wheezes Extremities: No: Cold Edema: No Neurological: Yes: Alert, Oriented Psychiatric: No: Agitated Labs: CBC, BMP 04/23/19 05:40 04/23/19 05:40 INR, PTT INR 1.47 (0.83-1.09) H 04/22/19 05:15 Assessment/Plan Echo 01/22: nl LV/RV. mild AI, mod MR, nl RVSP. moderate peric effusion inconclusive for cardiac tamponade tele: sinus tach to 140, artifact 73 yo female with HTN, HPL and hiatal hernia here with early sepsis-like clinical picture and tachycardia sepsis, gram neg bacteremia, gram neg UTI: -abx per ID -cont IVF, no need pressors at present Tachycardia -Patient has no obstructive CAD on cath done in 02/2019, trop neg here -Tachycardia is responsive to underlying sepsis -Continue current ICU care and Abx as per critical care team -Will follow along Pericardial effusion -per Dr. Whitten, pt has been monitored as outpt for what is felt to be small-moderate size without clinical tamponade. has been clinically stable -no JVD, hemodynamically stable, tachy likely sec to sepsis/anxiety -rpt echo ordered [facility]: -sec to sepsis -renal fxn improving with IVF, supportive care COPD: -per crit care, hospitalist est time in data review, pt exam, formulating mgmt plan of potentially life- threatening problems = 35 min
--- NOTE | 2019-04-23 10:40 | PN ---
Progress Note (short form) - Note Progress Note: reports 2 to 3 loose BMs daily Vital Signs Period Temp Pulse Resp BP Sys/Cárdenas Pulse Ox Last 24 Hr 98.9 F 120-133 17-28 101-146/63-85 96 cor-rrr lungs clear abd midepigastric pain to palpaiton ext no edema CBC, BMP 04/23/19 05:40 04/23/19 05:40 Microbiology 04/21/19 12:56 Urine - Urine Clean Catch Urine Culture - Final Gram Negative Jarret 04/21/19 13:00 Blood - Peripheral Venous Blood Culture - Preliminary Lactose Fermenting Neg Bacilli 04/21/19 12:59 Blood - Peripheral Venous Blood Culture - Preliminary NO GROWTH OBTAINED AFTER 24 HOURS, INCUBATION TO CONTINUE FOR 4 DAYS. Current Medications Albuterol/Ipratropium (Duoneb -) 1 amp NEB RQID [facility] Last Admin: 04/23/19 08:08 Dose: Not Given Enoxaparin Sodium (Lovenox -) 40 mg SQ DAILY [facility] Last Admin: 04/23/19 09:19 Dose: 40 mg Guaifenesin (Robitussin Dm -) 10 ml PO Q6H PRN PRN Reason: COUGH Last Admin: 04/23/19 09:19 Dose: 10 ml Lactated Ringer's (Lactated Ringers Solution) 1,000 ml in 1,000 mls @ 0 mls/hr IV ASDIR [facility] Last Admin: 04/22/19 18:08 Dose: Not Given Pantoprazole Sodium 80 mg/ (Sodium Chloride) 100 mls @ 10 mls/hr IVPB Q10H [facility] Last Admin: 04/23/19 01:41 Dose: 10 mls/hr Cefepime HCl 1 gm/ Dextrose 100 mls @ 200 mls/hr IVPB BID [facility]; Protocol Last Admin: 04/23/19 09:19 Dose: 200 mls/hr Lorazepam (Ativan Injection -) 0.5 mg IM Q8H PRN PRN Reason: ANXIETY Last Admin: 04/23/19 01:40 Dose: 0.5 mg Ondansetron HCl (Zofran Injection) 4 mg IVPUSH Q6H PRN PRN Reason: NAUSEA AND/OR VOMITING Last Admin: 04/22/19 06:41 Dose: 4 mg Prednisone (Deltasone -) 20 mg PO DAILY [facility] Last Admin: 04/23/19 09:19 Dose: 20 mg a/p gram negaive sepsis secondary to UTI acute renal failure-improving penicillin/sulfa allergy prior history of MRSA infection COPD on steroids mrsa screen mrsa isolation continue cefepime adjusted for jameel f/u cultures stool cultures/wbc ordered as well as cdiff overall improved Problem List - Problems (1) Sepsis Code(s): A41.9 - SEPSIS, UNSPECIFIED ORGANISM Qualifiers: Sepsis type: sepsis due to unspecified organism Sepsis acute organ dysfunction status: with acute organ dysfunction Severe sepsis acute organ dysfunction type: acute liver failure Hepatic coma status: without hepatic coma Severe sepsis shock status: without septic shock Qualified Code(s): A41.9 - Sepsis, unspecified organism; R65.20 - Severe sepsis without septic shock; K72.00 - Acute and subacute hepatic failure without coma (2) Acute renal failure Code(s): N17.9 - ACUTE KIDNEY FAILURE, UNSPECIFIED Qualifiers: Acute renal failure type: unspecified Qualified Code(s): N17.9 - Acute kidney failure, unspecified (3) COPD (chronic obstructive pulmonary disease) Code(s): J44.9 - CHRONIC OBSTRUCTIVE PULMONARY DISEASE, UNSPECIFIED (4) MRSA (methicillin resistant Staphylococcus aureus) colonization Code(s): Z22.322 - CARRIER OR SUSPECTED CARRIER OF METHICILLIN RESIS STAPH (5) Allergy to multiple antibiotics Code(s): Z88.1 - ALLERGY STATUS TO OTHER ANTIBIOTIC AGENTS STATUS
--- NOTE | 2019-04-23 12:00 | PN.GI ---
GI Progress Note Subjective: Continues with diarrhea. No further nausea/vomiting. - Objective Vital Signs: Vital Signs Temperature 99.1 F 04/23/19 10:00 Pulse Rate 122 H 04/23/19 10:00 Respiratory Rate 24 H 04/23/19 10:00 Blood Pressure 138/82 04/23/19 10:00 O2 Sat by Pulse Oximetry (%) 96 04/22/19 21:00 Constitutional: No Distress, Calm Gastrointestinal Inspection: Yes: WNL. No: Distention ...Auscultate: Yes: Normoactive Bowel Sounds ...Palpate: Yes: Soft. No: Mass, Tenderness Labs: CBC, BMP 04/23/19 05:40 04/23/19 05:40 INR, PTT INR 1.47 (0.83-1.09) H 04/22/19 05:15 Assessment/Plan Continued diarrhea in setting sepsis/COPD. Possible partial gastric outlet obstruction. Suggest Continued supportive care from GI standpoint Await stool study for C diff Ongoing treatment for GNR bacteremia/sepsis EGD once stable from infectious standpoint
--- NOTE | 2019-04-23 12:43 | PN ---
Progress Note, Physician History of Present Illness: Pt seen and examined at bedside. She remains in the ICU. She feels that the edema is improving. - Current Medication List Current Medications: Active Medications Albuterol/Ipratropium (Duoneb -) 1 amp NEB RQID [facility] Last Admin: 04/23/19 08:08 Dose: Not Given Enoxaparin Sodium (Lovenox -) 40 mg SQ DAILY [facility] Last Admin: 04/23/19 09:19 Dose: 40 mg Guaifenesin (Robitussin Dm -) 10 ml PO Q6H PRN PRN Reason: COUGH Last Admin: 04/23/19 09:19 Dose: 10 ml Lactated Ringer's (Lactated Ringers Solution) 1,000 ml in 1,000 mls @ 0 mls/hr IV ASDIR [facility] Last Admin: 04/22/19 18:08 Dose: Not Given Pantoprazole Sodium 80 mg/ (Sodium Chloride) 100 mls @ 10 mls/hr IVPB Q10H [facility] Last Admin: 04/23/19 12:32 Dose: 10 mls/hr Cefepime HCl 1 gm/ Dextrose 100 mls @ 200 mls/hr IVPB BID [facility]; Protocol Last Admin: 04/23/19 09:19 Dose: 200 mls/hr Lorazepam (Ativan Injection -) 0.5 mg IM Q8H PRN PRN Reason: ANXIETY Last Admin: 04/23/19 01:40 Dose: 0.5 mg Ondansetron HCl (Zofran Injection) 4 mg IVPUSH Q6H PRN PRN Reason: NAUSEA AND/OR VOMITING Last Admin: 04/22/19 06:41 Dose: 4 mg Prednisone (Deltasone -) 20 mg PO DAILY [facility] Last Admin: 04/23/19 09:19 Dose: 20 mg - Objective Vital Signs: Vital Signs Temperature 99.1 F 04/23/19 10:00 Pulse Rate 122 H 04/23/19 10:00 Respiratory Rate 24 H 04/23/19 10:00 Blood Pressure 138/82 04/23/19 10:00 O2 Sat by Pulse Oximetry (%) 96 04/22/19 21:00 Constitutional: Yes: Calm Eyes: Yes: Conjunctiva Clear HENT: Yes: Atraumatic Cardiovascular: Yes: S1, S2 Respiratory: Yes: CTA Bilaterally Gastrointestinal: Yes: Soft Genitourinary: Yes: WNL Musculoskeletal: Yes: WNL Edema: No Neurological: Yes: Oriented Psychiatric: Yes: Oriented Labs: CBC, BMP 04/23/19 05:40 04/23/19 05:40 INR, PTT INR 1.47 (0.83-1.09) H 04/22/19 05:15 Problem List - Problems (1) Acute renal failure Code(s): N17.9 - ACUTE KIDNEY FAILURE, UNSPECIFIED Qualifiers: Acute renal failure type: unspecified Qualified Code(s): N17.9 - Acute kidney failure, unspecified (2) COPD (chronic obstructive pulmonary disease) Code(s): J44.9 - CHRONIC OBSTRUCTIVE PULMONARY DISEASE, UNSPECIFIED (3) Sepsis Code(s): A41.9 - SEPSIS, UNSPECIFIED ORGANISM Qualifiers: Sepsis type: sepsis due to unspecified organism Sepsis acute organ dysfunction status: with acute organ dysfunction Severe sepsis acute organ dysfunction type: acute liver failure Hepatic coma status: without hepatic coma Severe sepsis shock status: without septic shock Qualified Code(s): A41.9 - Sepsis, unspecified organism; R65.20 - Severe sepsis without septic shock; K72.00 - Acute and subacute hepatic failure without coma Assessment/Plan Current Medications Generic Name Dose Route Start Last Admin Trade Name Freq PRN Reason Stop Dose Admin Albuterol/Ipratropium 1 amp 04/21/19 20:00 04/23/19 08:08 Duoneb - NEB Not Given RQID [facility] Enoxaparin Sodium 40 mg 04/22/19 10:00 04/23/19 09:19 Lovenox - SQ 40 mg DAILY [facility] Administration Guaifenesin 10 ml 04/22/19 20:25 04/23/19 09:19 Robitussin Dm - PO 10 ml Q6H PRN Administration COUGH Lactated Ringer's 1,000 ml in 1,000 mls @ 0 mls/hr 04/21/19 13:00 04/22/19 18 :08 Lactated Ringers Solution IV Not Given ASDIR [facility] Wide Open Pantoprazole Sodium 80 mg/ 100 mls @ 10 mls/hr 04/21/19 18:00 04/23/19 12:32 Sodium Chloride IVPB 10 mls/hr Q10H [facility] Administration 8 MG/HR Cefepime HCl 1 gm/ Dextrose 100 mls @ 200 mls/hr 04/22/19 10:00 04/23/19 09: 19 IVPB 200 mls/hr BID [facility] Administration Protocol Lorazepam 0.5 mg 04/21/19 18:41 04/23/19 01:40 Ativan Injection - IM 0.5 mg Q8H PRN Administration ANXIETY Ondansetron HCl 4 mg 04/21/19 18:35 04/22/19 06:41 Zofran Injection IVPUSH 4 mg Q6H PRN Administration NAUSEA AND/OR VOMITING Prednisone 20 mg 04/22/19 10:00 04/23/19 09:19 Deltasone - PO 20 mg DAILY [facility] Administration Impression 1. [facility] 2. hyperkalemia 3. sepsis 4. copd 5. anxiety 6. hypotension Plan - cont to monitor renal function - cont fluids for now - repeat labs in am - monitor pulse ox
--- NOTE | 2019-04-23 12:52 | PN ---
Teaching Attending Note Name of Resident: Blane Herring ATTENDING PHYSICIAN STATEMENT I saw and evaluated the patient. I reviewed the resident's note and discussed the case with the resident. I agree with the resident's findings and plan as documented. SUBJECTIVE: Patient seen and examined in the ICU. Still with some nausea, but a little better. Some moist cough, but a little better. No CP. Intake & Output 04/20/19 04/21/19 04/22/19 04/23/19 23:59 23:59 23:59 23:59 Intake Total 2200 1320 241 Output Total 800 1000 900 Balance 1400 320 -659 Weight 166 lb 10.711 oz 166 lb 10.711 oz 161 lb Last Vital Signs Temp Pulse Resp BP Pulse Ox 99.1 F 122 H 24 H 138/82 96 04/23/19 10:00 04/23/19 10:00 04/23/19 10:00 04/23/19 10:00 04/22/19 21:00 Active Medications Albuterol/Ipratropium (Duoneb -) 1 amp NEB RQID [facility] Last Admin: 04/23/19 08:08 Dose: Not Given Enoxaparin Sodium (Lovenox -) 40 mg SQ DAILY [facility] Last Admin: 04/23/19 09:19 Dose: 40 mg Guaifenesin (Robitussin Dm -) 10 ml PO Q6H PRN PRN Reason: COUGH Last Admin: 04/23/19 09:19 Dose: 10 ml Lactated Ringer's (Lactated Ringers Solution) 1,000 ml in 1,000 mls @ 0 mls/hr IV ASDIR [facility] Last Admin: 04/22/19 18:08 Dose: Not Given Pantoprazole Sodium 80 mg/ (Sodium Chloride) 100 mls @ 10 mls/hr IVPB Q10H [facility] Last Admin: 04/23/19 12:32 Dose: 10 mls/hr Cefepime HCl 1 gm/ Dextrose 100 mls @ 200 mls/hr IVPB BID [facility]; Protocol Last Admin: 04/23/19 09:19 Dose: 200 mls/hr Lorazepam (Ativan Injection -) 0.5 mg IM Q8H PRN PRN Reason: ANXIETY Last Admin: 04/23/19 01:40 Dose: 0.5 mg Ondansetron HCl (Zofran Injection) 4 mg IVPUSH Q6H PRN PRN Reason: NAUSEA AND/OR VOMITING Last Admin: 04/22/19 06:41 Dose: 4 mg Prednisone (Deltasone -) 20 mg PO DAILY [facility] Last Admin: 04/23/19 09:19 Dose: 20 mg Exam: Gen: Awake in NAD, mildly uncomfortable HEENT: PERRL, MMM Resp: Diminished at the bases, few scattered rhonchi, no wheeze CV: S1S2, tachy RRR, no m/r/g noted Ext: WWP, no edema, + pulses Neuro: Non-focal Laboratory Results - last 24 hr 04/23/19 04/23/19 04/23/19 05:40 05:40 05:40 WBC 6.4 RBC 3.16 L Hgb 9.6 L Hct 28.9 L MCV 91.3 MCH 30.4 MCHC 33.3 RDW 14.2 Plt Count 75 L D MPV 8.1 Absolute Neuts (auto) 5.4 Neutrophils % 84.4 H Neutrophils % (Manual) 87.5 H Band Neutrophils % 0.9 Lymphocytes % 4.6 L D Lymphocytes % (Manual) 2.9 L Monocytes % 9.5 D Monocytes % (Manual) 6 Eosinophils % 1.4 D Eosinophils % (Manual) 0.9 Basophils % 0.1 Basophils % (Manual) 0.0 Myelocytes % (Man) 0 Promyelocytes % (Man) 0 Blast Cells % (Manual) 1 H D Nucleated RBC % 0 Metamyelocytes 0 D Platelet Estimate Decreased Sodium 145 Potassium 4.3 Chloride 114 H Carbon Dioxide 28 Anion Gap 3 L BUN 44.6 H Creatinine 2.4 H Est GFR (CKD-EPI)AfAm 22.46 Est GFR (CKD-EPI)NonAf 19.38 Random Glucose 147 H Calcium 7.4 L Total Bilirubin 0.7 AST 65 H ALT 53 Alkaline Phosphatase 80 Total Protein 4.7 L Albumin 2.5 L Random Vancomycin 12.1 L Problem List - Problems (1) COPD (chronic obstructive pulmonary disease) Code(s): J44.9 - CHRONIC OBSTRUCTIVE PULMONARY DISEASE, UNSPECIFIED (2) Acute renal failure Code(s): N17.9 - ACUTE KIDNEY FAILURE, UNSPECIFIED Qualifiers: Acute renal failure type: unspecified Qualified Code(s): N17.9 - Acute kidney failure, unspecified (3) Sepsis Code(s): A41.9 - SEPSIS, UNSPECIFIED ORGANISM Qualifiers: Sepsis type: sepsis due to unspecified organism Sepsis acute organ dysfunction status: with acute organ dysfunction Severe sepsis acute organ dysfunction type: acute liver failure Hepatic coma status: without hepatic coma Severe sepsis shock status: without septic shock Qualified Code(s): A41.9 - Sepsis, unspecified organism; R65.20 - Severe sepsis without septic shock; K72.00 - Acute and subacute hepatic failure without coma (4) UGIB (upper gastrointestinal bleed) Code(s): K92.2 - GASTROINTESTINAL HEMORRHAGE, UNSPECIFIED Assessment/Plan O2 dependent COPD (2lpm) JANETTE on PAP therapy History of partial left lung resection for carcinoid tumor GERD Coffee ground emesis [facility] R/O C Diff BD TX O2 as needed to maintain saturation GI workup ongoing PPI Normal transfusion thresholds NPO D/W GI for UGI series or repeat CT with PO contrast (?) Mechanical VTE prophylaxis IVF PAP therapy QHS ABX per ID Strict I&Os Home dose Prednisone OOB to chair ICU Monitoring Dr Ruano
--- NOTE | 2019-04-23 15:31 | ECHO ---
Name: VERENICE GANDARA Exam:Adult Echocardiogram Study Date: 04/23/2019 01:47 PM Age: 73 yrs Reason For Study: known small-mod weston effusion Height: 64 in Weight: 161 lb BSA: 1.8 m2 MMode/2D Measurements & Calculations IVSd: 0.90 cm Ao root diam: 3.5 cm LVIDd: 4.7 cm LA dimension: 4.7 cm LVIDs: 3.1 cm ACS: 1.6 cm LVPWd: 0.97 cm IVSs: 1.2 cm LVPWs: 1.3 cm EDV(Teich): 101.9 ml ESV(Teich): 37.8 ml Doppler Measurements & Calculations MV A max arnie: 130.3 cm/sec Ao V2 max: 108.0 cm/sec Ao max P.7 mmHg Ao V2 mean: 75.8 cm/sec Ao mean P.7 mmHg Ao V2 VTI: 17.6 cm MR max arnie: 466.9 cm/sec TR max arnie: 276.8 cm/sec MR max P.2 mmHg TR max P.8 mmHg Med Peak E' Arnie: 3.6 cm/sec Lat Peak E' Arnie: 3.3 cm/sec Procedure A complete two-dimensional transthoracic echocardiogram was performed (2D, M-mode, Doppler and color flow Doppler). Technically limited study. Left Ventricle The left ventricle is normal in size. Left ventricular systolic function is normal. Ejection Fraction = 60- 65%. No regional wall motion abnormalities noted. Right Ventricle The right ventricle is normal size. The right ventricular systolic function is normal. Atria The left atrium is mildly dilated. Right atrial size is normal. Mitral Valve There is mild mitral valve thickening. There is mild mitral annular calcification. There is mild mitr al regurgitation. Tricuspid Valve The tricuspid valve is normal in structure and function. No tricuspid regurgitation. Aortic Valve There is mild aortic sclerosis.;. No aortic regurgitation is present. Pulmonic Valve The pulmonic valve is not well visualized. Great Vessels The aortic root is normal size. Pericardium/Pleura Small to moderate pericardial effusion. RA appears to collapse in mid diastole. Interpretation Summary Technically limited study The left ventricle is normal in size. Left ventricular systolic function is normal. No regional wall motion abnormalities noted. Ejection Fraction = 60-65%. The right ventricular systolic function is normal. The left atrium is mildly dilated. Right atrial size is normal. There is mild mitral valve thickening. There is mild mitral annular calcification. There is mild mitral regurgitation. There is mild aortic sclerosis. Small to moderate pericardial effusion. RA appears to collapse in mid diastole Clinical correlation is recommended George Hayes MD 04/23/2019 03:30 PM
--- NOTE | 2019-04-23 18:39 | PN ---
Progress Note (short form) - Note Progress Note: Hospitalist Medicine pt c/o nausea, abdominal pain. Resting on side. on 2L NC 02, with mild shortness of breath. Denies MASSEY, fever, chills, chest pain or changes in urinary or bowel function. Vitals 04/23/19 18:00 Temperature 99.2 F Pulse Rate 122 H Respiratory 28 H Rate Blood Pressure 127/69 Physical Exam general: resting in bed. in mild distress. on 2L NC 02 HEENT: NCAT, PERRLA, MMM pulm: decreased breath sounds. no accessory m usage cardio: +tachy rate. no r/m/g abdomen: +diffusely tender to palpation. no guarding or rigidity LE: no edema. 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 Laboratory Tests 04/21/19 04/21/19 04/22/19 13:00 19:59 05:15 WBC Hgb Hct Plt Count Sodium Potassium Chloride BUN Creatinine Random Glucose Lactic Acid 3.0 H* 4.7 H* 1.6 AST ALT Random Vancomycin 04/23/19 04/23/19 04/23/19 05:40 05:40 05:40 WBC 6.4 Hgb 9.6 L Hct 28.9 L Plt Count 75 L D Sodium 145 Potassium 4.3 Chloride 114 H BUN 44.6 H Creatinine 2.4 H Random Glucose 147 H Lactic Acid AST 65 H ALT 53 Random Vancomycin 12.1 L Assessment/Plan 73 y/o F with PMH COPD on 2L 02, JANETTE , BiPAP use, h/o partial lung resection - carcinoid, GERD, prior hx MRSA who presented with hypotension, N/V, coffee ground emesis and L[facility]. #COPD on 2L 02 #BiPAP use -c/w duonebs PRN -c/w BiPAP -c/w prednisone 20mg qd , will taper accordingly #N/V/D, coffee ground emesis, possible 2/2 gastric outlet obstruction -NPO; bowel rest -c/t monitor H/H -GI on board: Dr. Gore -c/w protonix gtt -may need UGI series, EGD later in wk once infection improved #gram (-) sepsis 2/2 UTI -c/w cefepime, PCN/ sulfa allergy -c/t f/u cx; including stool, c.diff -isolation precautions: past hx MRSA #[facility] -resolving, downtrending -c/w IVF ; LR 100 cc/hr #F/E/N c/w IV LR 100 cc/hr continue to follow lytes NPO bowel rest #PPX DVT: SCD's #Dispo cont'd ICU monitoring <China Mayorga - Last Filed: 04/23/19 18:42> - Note Progress Note: Seen and examined. I agree with documentation as documented above aside from as supplemented by myself. Was present for and verified all gonzalez parts of historical and exam information. Discussed in depth with the resident team and consultants. Patient is ill and continues to require inpatient care for their ongoing illness. No new complaints noted; consulting cardio with hx pericardial effusion and persisting tachycardia. 10 sys ROS done and negative aisde from HPI. VS labs and imaging reviewed. NAD AAO resting in bed on O2 NC AT EOMI PERRLA Tachy with s1/2 NT ND +BS CN2-12 wnl, no fnd Normal mood, appropriate behavior Pending echo Mild to mod pericardial effusion on CT noted +blood/urine cx. Suspect urinary source given stranding and +UA on admission. FU ID recs. A/P: This is a 73 y/o female with a PMH as documented who remains in ICU with sepsis , bacteremia, UTI, and hx pericardial effusion. She last saw Dr. Maria Dolores augustin. Will consult and continue to monitor in the unit. Sepsis 2/2 UTI Gram negative bacteremia Chronic Respiratory failure 2/2 COPD, nimv use per pulm alongside steroids/BD taper. Persistent sinus tachycardia History of pericardial effusion, CV consult and echo pending. Coffee ground emesis, +FOBT, will need scope. Continue PPI, mgmt per GI [facility]; continue present management; deferring mnanagement to nephro Overweight <Alexander Turner - Last Filed: 04/23/19 23:20>
[2019-04-23] MEDS ORDERED: LACTATED RINGERS SOLUTION 1,000 ML/1,000 ML INFUS.BAG IV SCH (19:00)
[2019-04-24] MEDS: LORazepam 2 MG/ML SDV VIAL IM PRN (04:44)
[2019-04-24 07:48] LABS: BASO % 0.2 % (0-2.0); EOS % 1.5 % (0-4.5); HEMATOCRIT 27.7 % (32.4-45.2); HEMOGLOBIN 9.2 GM/dL (10.7-15.3); LYMPH % 8.9 % (8-40); MCH 30.3 pg (25.7-33.7); MCHC 33.2 g/dl (32.0-36.0); MEAN CELL VOLUME 91.3 fl (80-96); MEAN PLT VOLUME 8.5 fl (7.5-11.1); MONO % 9.5 % (3.8-10.2); NEUT % 79.9 % (42.8-82.8); PLATELET COUNT 69 K/MM3 (134-434); RBC 3.04 M/mm3 (3.60-5.2); RDW 13.9 % (11.6-15.6); WHITE BLOOD COUNT 6.6 K/mm3 (4.0-10.0)
[2019-04-24 08:28] LABS: ALBUMIN 2.5 g/dl (3.4-5.0); BILIRUBIN,TOTAL 0.6 mg/dL (0.2-1); BLOOD UREA NITROGEN 35.2 mg/dL (7-18); CALCIUM 7.2 mg/dL (8.5-10.1); CREATININE 1.8 mg/dL (0.55-1.3); MAGNESIUM 1.4 mg/dL (1.8-2.4); PHOSPHOROUS 2.5 mg/dL (2.5-4.9); POTASSIUM 4.1 mmol/L (3.5-5.1); TOT PROT 4.8 g/dl (6.4-8.2)
[2019-04-24 08:31] LABS: INR 1.04 (0.83-1.09); PROTHROMBIN TIME (PATIENT) 12.3 SEC (9.7-13.0)
[2019-04-24 08:33] LABS: ACTIVATED PTT 25.3 SECONDS (25.2-36.5)
[2019-04-24] MEDS: ALBUTEROL SO4 2.5/IPRATROPIUM 0.5 INH SOL 3 ML VIAL.NEB. NEB SCH ×4 (09:00→21:13)
[2019-04-24] MEDS ORDERED: ONDANSETRON 4 MG/2 ML VIAL IVPUSH PRN (09:17)
[2019-04-24] MEDS ORDERED: LACTATED RINGERS SOLUTION 1,000 ML/1,000 ML INFUS.BAG IV SCH (09:17)
[2019-04-24] MEDS ORDERED: CEFEPIME 1 GM in DEXTROSE 5%-WATER 100 ML IVPB SCH (10:00)
--- NOTE | 2019-04-24 10:18 | PN ---
Progress Note (short form) - Note Progress Note: PULMONARY Denies shortness of breath but with cloudy sputum. No fevers recorded. Vital Signs Period Temp Pulse Resp BP Sys/Cárdenas Pulse Ox Last 24 Hr 98.8 F-99.2 F 108-124 24-35 120-141/68-86 92-96 Gen: NAD at rest Heart: RRR Lung: decreased breath sounds at the bases Abd: soft, nontender Ext: no edema CBC, BMP 04/24/19 06:08 04/24/19 06:08 Active Medications Albuterol/Ipratropium (Duoneb -) 1 amp NEB RQID [facility] Guaifenesin (Robitussin Dm -) 10 ml PO Q6H PRN PRN Reason: COUGH Cefepime HCl 1 gm/ Dextrose 100 mls @ 200 mls/hr IVPB BID [facility]; Protocol Lactated Ringer's (Lactated Ringers Solution) 1,000 ml in 1,000 mls @ 100 mls/ hr IV ASDIR [facility] Pantoprazole Sodium 80 mg/ (Sodium Chloride) 100 mls @ 10 mls/hr IVPB Q10H [facility] Lorazepam (Ativan Injection -) 0.5 mg IM Q8H PRN PRN Reason: ANXIETY Ondansetron HCl (Zofran Injection) 4 mg IVPUSH Q6H PRN PRN Reason: NAUSEA AND/OR VOMITING Prednisone (Deltasone -) 20 mg PO DAILY [facility] A/P UTI Gram Negative Bacteremia Severe Sepsis Acute Kidney Injury Lactic Acidosis resolved Anemia/Thrombocytopenia COPD Chronic Hypoxic Respiratory Failure Obstructive Sleep Apnea r/o Gastric Outlet Obstruction - continue antibiotics - IVF - monitor urine output, creatinine - inhaled bronchodilators - taper steroids down to home dose - O2 to keep SpO2 >90% - CPAP at night - monitor CBC - DVT prophylaxis
[2019-04-24 10:19] LABS: PLATELET ESTIMATE DECREASED
--- NOTE | 2019-04-24 10:25 | PN ---
Teaching Attending Note Name of Resident: China Mayorga ATTENDING PHYSICIAN STATEMENT I saw and evaluated the patient. I reviewed the resident's note and discussed the case with the resident. I agree with the resident's findings and plan as documented. SUBJECTIVE: Patient says nausea and diarrhea are improving. OBJECTIVE: Vital Signs Period Temp Pulse Resp BP Sys/Cárdenas Pulse Ox Last 24 Hr 98.8 F-99.2 F 108-124 24-35 120-141/68-86 92-96 HEART: S1S2, tachycardic LUNGS: Clear with decreased BS ABDOMEN: Soft, mild diffuse tenderness, non-distended, normal BS EXTREMITIES: No edema Laboratory Results - last 24 hr 04/23/19 04/24/19 04/24/19 05:40 06:08 06:08 WBC 6.6 RBC 3.04 L Hgb 9.2 L Hct 27.7 L MCV 91.3 MCH 30.3 MCHC 33.2 RDW 13.9 Plt Count 75 L D 69 L MPV 8.1 8.5 Absolute Neuts (auto) 5.3 Neutrophils % 79.9 Lymphocytes % 8.9 D Monocytes % 9.5 Eosinophils % 1.5 Basophils % 0.2 Nucleated RBC % 0 PT with INR 12.30 INR 1.04 PTT (Actin FS) 25.3 Sodium Potassium Chloride Carbon Dioxide Anion Gap BUN Creatinine Est GFR (CKD-EPI)AfAm Est GFR (CKD-EPI)NonAf Random Glucose Calcium Phosphorus Magnesium Total Bilirubin AST ALT Alkaline Phosphatase Total Protein Albumin 04/24/19 06:08 WBC RBC Hgb Hct MCV MCH MCHC RDW Plt Count MPV Absolute Neuts (auto) Neutrophils % Lymphocytes % Monocytes % Eosinophils % Basophils % Nucleated RBC % PT with INR INR PTT (Actin FS) Sodium 146 H Potassium 4.1 Chloride 112 H Carbon Dioxide 29 Anion Gap 6 L BUN 35.2 H Creatinine 1.8 H Est GFR (CKD-EPI)AfAm 31.80 Est GFR (CKD-EPI)NonAf 27.44 Random Glucose 124 H Calcium 7.2 L Phosphorus 2.5 Magnesium 1.4 L Total Bilirubin 0.6 AST 35 ALT 39 Alkaline Phosphatase 75 Total Protein 4.8 L Albumin 2.5 L Current Medications Generic Name Dose Route Start Last Admin Trade Name Freq PRN Reason Stop Dose Admin Albuterol Sulfate 1 amp 04/24/19 10:21 Ventolin 0.083% Nebulizer Soln - NEB Q4H PRN SHORT OF BREATH/WHEEZING Albuterol/Ipratropium 1 amp 04/24/19 12:00 Duoneb - NEB RQID [facility] Guaifenesin 10 ml 04/24/19 09:17 Robitussin Dm - PO Q6H PRN COUGH Cefepime HCl 1 gm/ Dextrose 100 mls @ 200 mls/hr 04/24/19 10:00 IVPB BID [facility] Protocol Lactated Ringer's 1,000 ml in 1,000 mls @ 100 mls/hr 04/24/19 09:17 Lactated Ringers Solution IV ASDIR [facility] Pantoprazole Sodium 80 mg/ 100 mls @ 10 mls/hr 04/24/19 16:00 Sodium Chloride IVPB Q10H [facility] 8 MG/HR Lorazepam 0.5 mg 04/24/19 09:17 Ativan Injection - IM Q8H PRN ANXIETY Ondansetron HCl 4 mg 04/24/19 09:17 Zofran Injection IVPUSH Q6H PRN NAUSEA AND/OR VOMITING Prednisone 20 mg 04/24/19 10:00 Deltasone - PO DAILY [facility] ASSESSMENT AND PLAN: This is a 73 year old woman with a history of chronic hypoxic respiratory failure, COPD, JANETTE, carcinoid with partial lung resection, GERD who presented to the ED with abdominal pain, vomiting, and diarrhea. 1. Severe sepsis secondary to UTI with E. coli bacteremia - Afebrile; leukocytosis resolved; tachycardia persists - Continue cefepime - Follow up sensitivities - Blood cultures 04/23 negative so far 2. Nausea, vomiting, diarrhea - Possible partial gastric outlet obstruction - Improving - Continue Protonix - Eventual EGD 3. Acute kidney injury - Improving 4. Chronic hypoxic respiratory failure secondary to COPD, JANETTE - Continue oxygen to maintain saturation >90% - Continue Prednisone, DuoNeb - BiPAP at night 5. Pericardial effusion, chronic - No clinical signs of tamponade - Continue monitoring by echo - Pericardiocentesis if evidence of tamponade develops 6. Acute blood loss anemia - Stool positive for occult blood - Continue Protonix - Monitor hgb and transfuse as needed - GI follow up
[2019-04-24] MEDS ORDERED: DEXTROSE 5%-WATER 200 ML IVPB ONE (10:33)
[2019-04-24] MEDS ORDERED: CEFEPIME HCL 1 GM VIAL (RESTRICTED TO ID) ONE (10:33)
[2019-04-24] MEDS: predniSONE 20 MG TABLET (UD) PO SCH (10:34)
[2019-04-24] MEDS: PANTOPRAZOLE SODIUM 80 MG in SODIUM CHLORIDE 100 ML IVPB SCH ×4 (11:46→20:23)
--- NOTE | 2019-04-24 13:38 | PN ---
Progress Note, Physician Chief Complaint: seen and examined. Denies CP, SOB is at baseline. She feels "better than yesterday" Appears tired. History of Present Illness: She wants to rest and "Get some sleep" - Current Medication List Current Medications: Active Medications Albuterol Sulfate (Ventolin 0.083% Nebulizer Soln -) 1 amp NEB Q4H PRN PRN Reason: SHORT OF BREATH/WHEEZING Albuterol/Ipratropium (Duoneb -) 1 amp NEB RQID [facility] Guaifenesin (Robitussin Dm -) 10 ml PO Q6H PRN PRN Reason: COUGH Cefepime HCl 1 gm/ Dextrose 100 mls @ 200 mls/hr IVPB BID FABI[facility]A; Protocol Last Admin: 04/24/19 10:34 Dose: 200 mls/hr Lactated Ringer's (Lactated Ringers Solution) 1,000 ml in 1,000 mls @ 100 mls/ hr IV ASDIR [facility] Last Admin: 04/24/19 10:32 Dose: 100 mls/hr Pantoprazole Sodium 80 mg/ (Sodium Chloride) 100 mls @ 10 mls/hr IVPB Q10H [facility] Lorazepam (Ativan Injection -) 0.5 mg IM Q8H PRN PRN Reason: ANXIETY Ondansetron HCl (Zofran Injection) 4 mg IVPUSH Q6H PRN PRN Reason: NAUSEA AND/OR VOMITING Prednisone (Deltasone -) 20 mg PO DAILY [facility] Last Admin: 04/24/19 10:34 Dose: 20 mg - Objective Vital Signs: Vital Signs Temperature 99.2 F 04/23/19 18:00 Pulse Rate 110 H 04/24/19 08:00 Respiratory Rate 29 H 04/24/19 08:00 Blood Pressure 127/68 04/24/19 08:00 O2 Sat by Pulse Oximetry (%) 95 04/24/19 09:21 Constitutional: Yes: No Distress Cardiovascular: Yes: Regular Rate and Rhythm, Tachycardia, Other (no JVD) Respiratory: Yes: Other (severely reduced breath sounds bilaterally- chronic. C/ W COPD. No active wheezing.) Gastrointestinal: Yes: Soft Edema: No Neurological: Yes: Alert, Oriented ...Motor Strength: WNL Labs: CBC, BMP 04/24/19 06:08 04/24/19 06:08 INR, PTT INR 1.04 (0.83-1.09) 04/24/19 06:08 Microbiology 04/21/19 13:00 Blood - Peripheral Venous Blood Culture - Final Escherichia Coli Esbl Oral Hygienist 04/21/19 12:56 Urine - Urine Clean Catch Urine Culture - Final Gram Negative Jarret 04/23/19 06:15 Blood - Peripheral Venous Blood Culture - Preliminary NO GROWTH OBTAINED AFTER 24 HOURS, INCUBATION TO CONTINUE FOR 4 DAYS. Laboratory Tests 04/21/19 04/24/19 04/24/19 10:54 06:08 06:08 WBC 6.6 Hgb 9.2 L Plt Count 69 L INR 1.04 Sodium Potassium Creatinine Stool Occult Blood Positive 04/24/19 06:08 WBC Hgb Plt Count INR Sodium 146 H Potassium 4.1 Creatinine 1.8 H Stool Occult Blood Assessment/Plan 73 yo female with HTN, HPL and hiatal hernia here with early sepsis-like clinical picture secondary to UTI, gram negative sepsis and ARF in setting of acute sepsis. Sepsis, gram neg bacteremia, gram neg UTI: -abx per ID -cont IVF, no need pressors at present Tachycardia: Sinus occurs in setting of infection, anemia. Physiologic response. -Patient has no obstructive CAD on cath done in 02/2019, trop neg here -Tachycardia is responsive to underlying sepsis -Continue current ICU care and Abx as per critical care team -Will follow along Pericardial effusion: Chronic since at least April 2018, negative on PET scan which she had done for lung nodule. -This effusion has been small to moderate in size since 2018 and stable. -Prior echos have had equivocal findings of tamponade, as does current study but clinically she has not shown any instability or signs/ symptoms of tamponade. -no JVD, hemodynamically stable, tachy likely sec to sepsis/anxiety/anemia -Current study with similar size chronic effusion, and with indeterminate/ equivocal features for tamponade similar to study in January 2019. -Because this effusion is chronic and unchanged, absence of clear clinical tamponade and thrombocytopenia, advise close clinical and echo follow up -Would reserve drainage procedure if effusion enlarges or if clinical changes indicative more clearly indicative of tamponade physiology. LUH: -sec to sepsis -renal fxn improving with IVF, supportive care COPD: -per crit care, hospitalist
--- NOTE | 2019-04-24 13:50 | PN ---
Physical Exam: SUBJECTIVE: Patient seen and examined. States she feels better today compared to yesterday. Denies any diarrhea. OBJECTIVE: Vital Signs Period Temp Pulse Resp BP Sys/Cárdenas Pulse Ox Last 24 Hr 98.8 F-99.2 F 108-124 24-35 120-141/68-86 92-95 GENERAL: The patient is awake, alert, and fully oriented, in no acute distress. HEAD: Normal with no signs of trauma. EYES: PERRL, EOMI ENT: moist mucous membranes. LUNGS: decreased breath sounds at bases. no accessory muscle use HEART: tachycardic, regular rhythm. normal s1, s2 ABDOMEN: mild diffuse tenderness to palpation. Soft, nondistended, normoactive bowel sounds, EXTREMITIES: 2+ pulses, warm, well-perfused, no edema. NEUROLOGICAL: Normal speech, gait not observed. Laboratory Results - last 24 hr 04/24/19 04/24/19 04/24/19 06:08 06:08 06:08 WBC 6.6 RBC 3.04 L Hgb 9.2 L Hct 27.7 L MCV 91.3 MCH 30.3 MCHC 33.2 RDW 13.9 Plt Count 69 L MPV 8.5 Absolute Neuts (auto) 5.3 Neutrophils % 79.9 Neutrophils % (Manual) 85.9 H Band Neutrophils % 0.0 Lymphocytes % 8.9 D Lymphocytes % (Manual) 4.0 L D Monocytes % 9.5 Monocytes % (Manual) 8 Eosinophils % 1.5 Eosinophils % (Manual) 0.0 D Basophils % 0.2 Basophils % (Manual) 0.0 Myelocytes % (Man) 0 Promyelocytes % (Man) 0 Blast Cells % (Manual) 0 D Nucleated RBC % 0 Metamyelocytes 0 Platelet Estimate Decreased PT with INR 12.30 INR 1.04 PTT (Actin FS) 25.3 Sodium 146 H Potassium 4.1 Chloride 112 H Carbon Dioxide 29 Anion Gap 6 L BUN 35.2 H Creatinine 1.8 H Est GFR (CKD-EPI)AfAm 31.80 Est GFR (CKD-EPI)NonAf 27.44 Random Glucose 124 H Calcium 7.2 L Phosphorus 2.5 Magnesium 1.4 L Total Bilirubin 0.6 AST 35 ALT 39 Alkaline Phosphatase 75 Total Protein 4.8 L Albumin 2.5 L Active Medications Generic Name Dose Route Start Last Admin Trade Name Freq PRN Reason Stop Dose Admin Albuterol Sulfate 1 amp 04/24/19 10:21 Ventolin 0.083% Nebulizer Soln - NEB Q4H PRN SHORT OF BREATH/WHEEZING Albuterol/Ipratropium 1 amp 04/24/19 12:00 Duoneb - NEB RQID [facility] Guaifenesin 10 ml 04/24/19 09:17 Robitussin Dm - PO Q6H PRN COUGH Cefepime HCl 1 gm/ Dextrose 100 mls @ 200 mls/hr 04/24/19 10:00 04/24/19 10: 34 IVPB 200 mls/hr BID FABIOLA Administration Protocol Lactated Ringer's 1,000 ml in 1,000 mls @ 100 mls/hr 04/24/19 09:17 04/24/19 10:32 Lactated Ringers Solution IV 100 mls/hr ASDIR F[facility]IOLA Administration Pantoprazole Sodium 80 mg/ 100 mls @ 10 mls/hr 04/24/19 16:00 Sodium Chloride IVPB Q10H F[facility]A 8 MG/HR Lorazepam 0.5 mg 04/24/19 09:17 Ativan Injection - IM Q8H PRN ANXIETY Ondansetron HCl 4 mg 04/24/19 09:17 Zofran Injection IVPUSH Q6H PRN NAUSEA AND/OR VOMITING Prednisone 20 mg 04/24/19 10:00 04/24/19 10:34 Deltasone - PO 20 mg DAILY [facility] Administration ASSESSMENT/PLAN: 73 y/o/f from [place] with PMHx of COPD on LTOT (2lpm), JANETTE on noc BiPAP, 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 Neuro - hx of MDD - Seroquel pm - Home dose clonazepam 0.5mg qam, 1mg qpm - Citalopram 20mg Cardio - Hypotension likely 2/2 hypovolemia resolved w/ IVFs, lactic acidosis likely 2/ 2 dehydration - IVF - Lactic acid normalized to 1.6 - Hold home ASA given c/f GIB - hold anti-HTN meds in setting of hypotension, may restart when appropriate - Hold statin given transaminitis Pulm - COPD on LTOT - maintain O2 Sat >90% - BiPAP at night - Duonebs PRN - continue prednisone 20mg, taper appropriately GI - Nausea and vomiting w/ Coffee ground emesis c/f UGIB vs esophagitis. H/o GERD. - Upper GI series shows: esophageal dysmotility with large sliding hiatal hernia , mild thickening of gastric folds, cannot exclude gastritis, no evidence of gastric outlet obstruction or acute/chronic peptic ulcer disease. - maintain large bore IV access - Clear liquid diet - Transfuse for Hgb <7.0, INR <2.5, PLT <50 - Continue Protonix gtt - GI on board ID - WBC normalized - Repeat Blood cx negative. C diff stool antigen negative. Stool negative for E. Coli, Salmonella/Shigella, Yersenia, Vibrio - Received cefepime and vanco in ED - Meropenum started as per ID - Started Valacyclovir as per ID - ID on board Renal - LUH likely prerenal in setting of dehydration r/t n/v and diarrhea. No obstruction seen on CT or abd u/s - Renal function improving - Renal dose all medications - Strict I&Os - Nephrology on board Prophylaxis - Protonix - SCDs FEN - monitor and replete lytes as needed - hypoMg, repleted - 1/2NS @ 83mls/hr Disposition - Stable for transfer to med surg Visit type - Emergency Visit Emergency Visit: Yes ED Registration Date: 04/21/19 Care time: The patient presented to the Emergency Department on the above date and was hospitalized for further evaluation of their emergent condition. - New Patient This patient is new to me today: Yes Date on this admission: 04/24/19 - Critical Care Critical Care patient: Yes Total Critical Care Time (in minutes): 36 Critical Care Statement: The care of this patient involved high complexity decision making to prevent further life threatening deterioration of the patient 's condition and/or to evaluate & treat vital organ system(s) failure or risk of failure. ATTENDING PHYSICIAN STATEMENT I saw and evaluated the patient. I reviewed the resident's note and discussed the case with the resident. I agree with the resident's findings and plan as documented. SUBJECTIVE: OBJECTIVE: ASSESSMENT AND PLAN:
--- NOTE | 2019-04-24 17:25 | PN ---
Progress Note, Physician History of Present Illness: Pt seen and examined at bedside. She says that diarrhea has resolved. - Current Medication List Current Medications: Active Medications Albuterol Sulfate (Ventolin 0.083% Nebulizer Soln -) 1 amp NEB Q4H PRN PRN Reason: SHORT OF BREATH/WHEEZING Albuterol/Ipratropium (Duoneb -) 1 amp NEB RQID [facility] Last Admin: 04/24/19 16:00 Dose: 1 amp Guaifenesin (Robitussin Dm -) 10 ml PO Q6H PRN PRN Reason: COUGH Lactated Ringer's (Lactated Ringers Solution) 1,000 ml in 1,000 mls @ 100 mls/ hr IV ASDIR [facility] Last Admin: 04/24/19 10:32 Dose: 100 mls/hr Pantoprazole Sodium 80 mg/ (Sodium Chloride) 100 mls @ 10 mls/hr IVPB Q10H [facility] Last Admin: 04/24/19 15:52 Dose: Not Given Meropenem 500 mg/ Dextrose 100 mls @ 200 mls/hr IVPB Q8H-IV [facility] Lorazepam (Ativan Injection -) 0.5 mg IM Q8H PRN PRN Reason: ANXIETY Ondansetron HCl (Zofran Injection) 4 mg IVPUSH Q6H PRN PRN Reason: NAUSEA AND/OR VOMITING Prednisone (Deltasone -) 20 mg PO DAILY [facility] Last Admin: 04/24/19 10:34 Dose: 20 mg - Objective Vital Signs: Vital Signs Temperature 97.9 F 04/24/19 13:20 Pulse Rate 105 H 04/24/19 13:20 Respiratory Rate 20 04/24/19 13:20 Blood Pressure 131/72 04/24/19 13:20 O2 Sat by Pulse Oximetry (%) 95 04/24/19 09:21 Constitutional: Yes: Calm Eyes: Yes: Conjunctiva Clear HENT: Yes: Atraumatic Neck: Yes: Supple Cardiovascular: Yes: S1, S2 Respiratory: Yes: CTA Bilaterally Gastrointestinal: Yes: Normal Bowel Sounds, Soft Genitourinary: Yes: WNL Musculoskeletal: Yes: WNL Edema: No Neurological: Yes: Oriented Labs: CBC, BMP 04/24/19 06:08 04/24/19 06:08 INR, PTT INR 1.04 (0.83-1.09) 04/24/19 06:08 Problem List - Problems (1) Acute renal failure Code(s): N17.9 - ACUTE KIDNEY FAILURE, UNSPECIFIED Qualifiers: Acute renal failure type: unspecified Qualified Code(s): N17.9 - Acute kidney failure, unspecified (2) COPD (chronic obstructive pulmonary disease) Code(s): J44.9 - CHRONIC OBSTRUCTIVE PULMONARY DISEASE, UNSPECIFIED (3) Sepsis Code(s): A41.9 - SEPSIS, UNSPECIFIED ORGANISM Qualifiers: Sepsis type: sepsis due to unspecified organism Sepsis acute organ dysfunction status: with acute organ dysfunction Severe sepsis acute organ dysfunction type: acute liver failure Hepatic coma status: without hepatic coma Severe sepsis shock status: without septic shock Qualified Code(s): A41.9 - Sepsis, unspecified organism; R65.20 - Severe sepsis without septic shock; K72.00 - Acute and subacute hepatic failure without coma Assessment/Plan Current Medications Generic Name Dose Route Start Last Admin Trade Name Freq PRN Reason Stop Dose Admin Albuterol Sulfate 1 amp 04/24/19 10:21 Ventolin 0.083% Nebulizer Soln - NEB Q4H PRN SHORT OF BREATH/WHEEZING Albuterol/Ipratropium 1 amp 04/24/19 12:00 04/24/19 16:00 Duoneb - NEB 1 amp RQID [facility] Administration Guaifenesin 10 ml 04/24/19 09:17 Robitussin Dm - PO Q6H PRN COUGH Lactated Ringer's 1,000 ml in 1,000 mls @ 100 mls/hr 04/24/19 09:17 04/24/19 10:32 Lactated Ringers Solution IV 100 mls/hr ASDIR FABIOLA Administration Pantoprazole Sodium 80 mg/ 100 mls @ 10 mls/hr 04/24/19 16:00 04/24/19 15:52 Sodium Chloride IVPB Not Given Q10H FABIOLA 8 MG/HR Meropenem 500 mg/ Dextrose 100 mls @ 200 mls/hr 04/24/19 18:00 IVPB Q8H-IV [facility] Lorazepam 0.5 mg 04/24/19 09:17 Ativan Injection - IM Q8H PRN ANXIETY Ondansetron HCl 4 mg 04/24/19 09:17 Zofran Injection IVPUSH Q6H PRN NAUSEA AND/OR VOMITING Prednisone 20 mg 04/24/19 10:00 04/24/19 10:34 Deltasone - PO 20 mg DAILY [facility] Administration Impression 1. LUH 2. hyperkalemia 3. sepsis 4. copd 5. anxiety 6. hypotension Plan - change fluids to 1/2 ns - encourage free water intake - renal function improved - repeat labs in am - monitor pulse ox
--- NOTE | 2019-04-24 17:49 | PN ---
Progress Note, Physician History of Present Illness: AWAKE, ALERT NO COMPLAINTS AFEBRILE WBC IMPROVED WNL AZOTEMIA IMPROVED BC ESBL - Current Medication List Current Medications: Active Medications Albuterol Sulfate (Ventolin 0.083% Nebulizer Soln -) 1 amp NEB Q4H PRN PRN Reason: SHORT OF BREATH/WHEEZING Albuterol/Ipratropium (Duoneb -) 1 amp NEB RQID [facility] [place] Last Admin: 04/24/19 16:00 Dose: 1 amp Guaifenesin (Robitussin Dm -) 10 ml PO Q6H PRN PRN Reason: COUGH Pantoprazole Sodium 80 mg/ (Sodium Chloride) 100 mls @ 10 mls/hr IVPB Q10H [facility] [place] Last Admin: 04/24/19 15:52 Dose: Not Given Meropenem 500 mg/ Dextrose 100 mls @ 200 mls/hr IVPB Q8H-IV [facility] Sodium Chloride (1/2 Normal Saline) 1,000 mls @ 83 mls/hr IV ASDIR [facility] Lorazepam (Ativan Injection -) 0.5 mg IM Q8H PRN PRN Reason: ANXIETY Ondansetron HCl (Zofran Injection) 4 mg IVPUSH Q6H PRN PRN Reason: NAUSEA AND/OR VOMITING Prednisone (Deltasone -) 20 mg PO DAILY [facility] [place] Last Admin: 04/24/19 10:34 Dose: 20 mg - Objective Vital Signs: Vital Signs Temperature 97.9 F 04/24/19 13:20 Pulse Rate 105 H 04/24/19 13:20 Respiratory Rate 20 04/24/19 13:20 Blood Pressure 131/72 04/24/19 13:20 O2 Sat by Pulse Oximetry (%) 95 04/24/19 09:21 Constitutional: Yes: No Distress Eyes: Yes: Conjunctiva Clear Cardiovascular: Yes: Regular Rate and Rhythm, S1, S2 Respiratory: Yes: CTA Bilaterally Gastrointestinal: Yes: Normal Bowel Sounds, Soft. No: Tenderness Edema: Yes Labs: CBC, BMP 04/24/19 06:08 04/24/19 06:08 INR, PTT INR 1.04 (0.83-1.09) 04/24/19 06:08 Assessment/Plan GRAM NEGATIVE BACTEREMIA/ SEPSIS UTI/ SEPSIS SECONDARY TO UTI LEUKOCYTOSIS RESOLVED AZOTEMIA IMPROVED PCN/ SULFA ALLERGIES SUBSTITUTE MEROPENEM CONTACT PRECAUTIONS
--- NOTE | 2019-04-24 18:23 | PN ---
Progress Note (short form) - Note Progress Note: Hospitalist Medicine states that she feels better, however believes her breathing is labored. less nausea, only few episodes of loose stool w/o blood. transferred out of ICU. Vitals 04/23/19 18:00 Temperature 99.2 F Pulse Rate 122 H Respiratory 28 H Rate Blood Pressure 127/69 Physical Exam general: resting in bed. in mild distress. on 2L NC 02 HEENT: NCAT, PERRLA, MMM pulm: decreased breath sounds. no accessory m usage cardio: +tachy rate. no r/m/g abdomen: +diffusely tender to palpation. no guarding or rigidity LE: no edema. 2+ pulses neuro: coding clerks supervisor 2-12 grossly intact Laboratory Tests 04/24/19 04/24/19 06:08 06:08 WBC 6.6 Hgb 9.2 L Hct 27.7 L Plt Count 69 L Sodium 146 H Potassium 4.1 Chloride 112 H BUN 35.2 H Creatinine 1.8 H Random Glucose 124 H Magnesium 1.4 L Microbiology 04/21/19 13:00 Blood - Peripheral Venous Blood Culture - Final Escherichia Coli Esbl Stroboscope Operator 04/21/19 12:56 Urine - Urine Clean Catch Urine Culture - Final Gram Negative Jarret Assessment/Plan 73 y/o F with PMH COPD on 2L 02, JANETTE , BiPAP use, h/o partial lung resection - carcinoid, GERD, prior hx MRSA who presented with hypotension, N/V, coffee ground emesis and LUH. #COPD on 2L 02 #BiPAP use -c/w duonebs PRN -c/w BiPAP -c/w prednisone 20mg qd , will taper accordingly #N/V/D, coffee ground emesis, possible 2/2 gastric outlet obstruction -c/t monitor H/H; has been stable -GI on board: Dr. Gore -c/w protonix gtt -UGI series: reveals esophageal dysmotility with large, sliding hiatal hernia -will d/w GI next steps when scope planned #Chronic pericardial effusion -since 2018 -no JVD, hemodynamically stable -if develops tamponade then will need drainage #gram (-) sepsis 2/2 UTI -coverage changed to meropenem (04/24) as ESBL, PCN/ sulfa allergy -c/t f/u cx; including stool, c.diff -isolation precautions: past hx MRSA, now ESBL -ID on board: Dr. Ndiaye #LUH -resolving, downtrending -c/w IVF #anxiety -c/w ativan PRN #F/E/N 1/2 ns 83 cc/hr continue to follow lytes clear liquid diet #PPX DVT: SCD's #Dispo transferred from ICU to floor message left for daughter on voicemail for call back <China Mayorga - Last Filed: 04/24/19 18:52> - Note Progress Note: Seen and examined; please see resident note for further information. Agree with above as documented aside from as supplemented by myself. Personally verified all gonzalez historical details, PE findings, as well as all labs, imaging, and diagnostics. Discussed at length with resident and indicated consultants. No further issues 10 sys ROS done and negative aside from HPI NAD, AAO, resting in bed NC AT EOMI PERRLA HR wnl, s1/2+ Lungs CTAB, w/ sym exp NT ND +BS CN2-12 wnl, no fnd Normal mood, appropriate behavior, average insight Trachea midline, no JVD Upper GI series revealing large hiatal hernia and thickened gastric folds MBS reviewed CXR reviewed Admission CT noted Micro noted w/ ESBL+EC. A/P: Patient continues on IV abx and is pending scope; renal, ID, and GI continue to follow. No new acute issues. Problems include: -Sepsis 2/2 ESBL+ E. ColiComplicated UTI (on carbepenem per ID for prolonged course, no issues noted. D/W specialty services. -Recurring UTIs -Pericardial effusion (Per CV this is chronic small to moderate since at least April 2018, negative on PET scan which she had done for lung nodule. Prior echos have had equivocal findings of tamponade, as does current study but clinically she has not shown any instability or signs/ symptoms of tamponade. Currently with no clinical signs of active tamponade but will be vigilant. If clinically indicated will need drainage.) -LUH, Improved (followup with nephrology) -Chronic hypoxic respiratory failure secondary to COPD, JANETTE (Continue BDs, steroids per pulm. C/W O2 w/o changes today) -Acute on chronic anemia (Likely chronic disease with likely acute blood loss anemia component, pending EGD when clinically appropriate per GI services. No acute bleeding noted. Continue to trend CBC. -Hypophosphatemia (Improved, continue to trend) -Hypomagnesemia (Improved, continue to trend) -HSV on valtrex -HyperK (Lokalma, not kayexalate, to be given. 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 If worsens consider psych consult. Consider medication tx with SNRI, etc.) -Multiple allergies (Unrelated groups such as latex, PNC, sulfa, opioids. Should discuss with pt and PCP if needed nonurgently) -Hx HTN (Controlled) <Alexander Turner - Last Filed: 05/07/19 02:40>
[2019-04-24] MEDS ORDERED: DEXTROSE 5%-WATER 100 ML IVPB ONE (18:29)
[2019-04-24] MEDS ORDERED: MEROPENEM 500 MG VIAL (RESTRICTED TO ID) IVPB ONE (18:29)
[2019-04-24] MEDS: SODIUM CHLORIDE 0.45% 1,000 ML IV SCH (18:38)
[2019-04-24] MEDS ORDERED: MAGNESIUM OXIDE 400 MG TABLET (FP) PO ONE (18:46)
[2019-04-24] MEDS: MEROPENEM 500 MG in DEXTROSE 5%-WATER 100 ML IVPB SCH (20:23)
[2019-04-24] MEDS: valACYclovir HCL 500 MG TABLET (FP) PO SCH (22:34)
[2019-04-25] MEDS ORDERED: MEROPENEM 500 MG VIAL (RESTRICTED TO ID) IVPB ONE ×2 (02:30→09:41)
[2019-04-25] MEDS ORDERED: DEXTROSE 5%-WATER 100 ML IVPB ONE ×2 (02:30→09:42)
[2019-04-25] MEDS: PANTOPRAZOLE SODIUM 80 MG in SODIUM CHLORIDE 100 ML IVPB SCH ×3 (02:48→15:03)
[2019-04-25] MEDS: MEROPENEM 500 MG in DEXTROSE 5%-WATER 100 ML IVPB SCH ×2 (02:49→09:54)
[2019-04-25] MEDS: LORazepam 2 MG/ML SDV VIAL IM PRN (05:17)
[2019-04-25] MEDS: guaiFENesin/D-METHORPHAN HB 10 ML UNIT-DOSE CUPS PO PRN ×3 (05:17→22:24)
[2019-04-25 08:19] LABS: HEMATOCRIT 25.3 % (32.4-45.2); HEMOGLOBIN 8.5 GM/dL (10.7-15.3); MCH 30.1 pg (25.7-33.7); MCHC 33.3 g/dl (32.0-36.0); MEAN CELL VOLUME 90.3 fl (80-96); RBC 2.81 M/mm3 (3.60-5.2)
[2019-04-25 08:20] LABS: BASO % 0.3 % (0-2.0); EOS % 2.7 % (0-4.5); LYMPH % 9.9 % (8-40); MEAN PLT VOLUME 8.4 fl (7.5-11.1); MONO % 12.5 % (3.8-10.2); NEUT % 74.6 % (42.8-82.8); PLATELET COUNT 64 K/MM3 (134-434); RDW 13.6 % (11.6-15.6)
[2019-04-25 08:47] LABS: ALBUMIN 2.5 g/dl (3.4-5.0); BILIRUBIN,TOTAL 0.7 mg/dL (0.2-1); BLOOD UREA NITROGEN 27.9 mg/dL (7-18); CREATININE 1.3 mg/dL (0.55-1.3); MAGNESIUM 1.6 mg/dL (1.8-2.4); PHOSPHOROUS 1.9 mg/dL (2.5-4.9); POTASSIUM 3.6 mmol/L (3.5-5.1); TOT PROT 4.6 g/dl (6.4-8.2)
[2019-04-25] MEDS: ALBUTEROL SO4 2.5/IPRATROPIUM 0.5 INH SOL 3 ML VIAL.NEB. NEB SCH ×4 (08:50→20:05)
[2019-04-25 08:58] LABS: CALCIUM 6.8 mg/dL (8.5-10.1)
[2019-04-25] MEDS: SODIUM CHLORIDE 0.45% 1,000 ML IV SCH ×3 (09:08→22:25)
[2019-04-25] MEDS ORDERED: CALCIUM (OYSTER SHELL) 500 MG TABLET (FP) PO ONE (09:21)
[2019-04-25] MEDS: valACYclovir HCL 500 MG TABLET (FP) PO SCH ×2 (09:56→22:24)
[2019-04-25] MEDS: predniSONE 20 MG TABLET (UD) PO SCH (09:56)
[2019-04-25] MEDS ORDERED: PT OWN MED DRAWER 7, Y5N ONE ×3 (10:05→17:32)
--- NOTE | 2019-04-25 12:04 | PN ---
Progress Note (short form) - Note Progress Note: s: no chest pain, palps, dizziness, dyspnea Current Medications Albuterol Sulfate (Ventolin 0.083% Nebulizer Soln -) 1 amp NEB Q4H PRN PRN Reason: SHORT OF BREATH/WHEEZING Albuterol/Ipratropium (Duoneb -) 1 amp NEB RQID [facility] Last Admin: 04/25/19 08:50 Dose: 1 amp Guaifenesin (Robitussin Dm -) 10 ml PO Q6H PRN PRN Reason: COUGH Last Admin: 04/25/19 05:17 Dose: 10 ml Pantoprazole Sodium 80 mg/ (Sodium Chloride) 100 mls @ 10 mls/hr IVPB Q10H [facility] Last Admin: 04/25/19 02:48 Dose: Not Given Meropenem 500 mg/ Dextrose 100 mls @ 200 mls/hr IVPB Q8H-IV [facility] Last Admin: 04/25/19 09:54 Dose: 200 mls/hr Sodium Chloride (1/2 Normal Saline) 1,000 mls @ 83 mls/hr IV ASDIR [facility] Last Admin: 04/25/19 09:08 Dose: 83 mls/hr Lorazepam (Ativan Injection -) 0.5 mg IM Q8H PRN PRN Reason: ANXIETY Last Admin: 04/25/19 05:17 Dose: 0.5 mg Ondansetron HCl (Zofran Injection) 4 mg IVPUSH Q6H PRN PRN Reason: NAUSEA AND/OR VOMITING Prednisone (Deltasone -) 20 mg PO DAILY [facility] Last Admin: 04/25/19 09:56 Dose: 20 mg Valacyclovir HCl (Valtrex -) 500 mg PO BID [facility] Last Admin: 04/25/19 09:56 Dose: 500 mg Vital Signs Period Temp Pulse Resp BP Sys/Cárdenas Pulse Ox Last 24 Hr 97.9 F-99.5 F 92-115 20-22 130-139/72-82 Constitutional: Yes: No Distress Cardiovascular: Yes: Regular Rate and Rhythm, Tachycardia, Other (no JVD) Respiratory: Yes: Other (severely reduced breath sounds bilaterally- chronic. C/ W COPD. No active wheezing.) Gastrointestinal: Yes: Soft Edema: No Neurological: Yes: Alert, Oriented no jaundice, diaphoresis not agitated Assessment/Plan 73 yo female with HTN, HPL and hiatal hernia here with early sepsis-like clinical picture secondary to UTI, gram negative sepsis and ARF in setting of acute sepsis. Sepsis, gram neg bacteremia, gram neg UTI: -abx per ID -cont IVF Tachycardia: Sinus occurs in setting of infection, anemia. Physiologic response. -Patient has no obstructive CAD on cath done in 02/2019, trop neg here -Tachycardia is responsive to underlying sepsis - cont abx per primary, ID Pericardial effusion: - Chronic since at least April 2018, negative on PET scan which she had done for lung nodule. -This effusion has been small to moderate in size since 2018 and stable. -Prior echos have had equivocal findings of tamponade, as does current study but clinically she has not shown any instability or signs/ symptoms of tamponade. -no JVD, hemodynamically stable, tachy likely sec to sepsis/anxiety/anemia -Current study with similar size chronic effusion, and with indeterminate/ equivocal features for tamponade similar to study in January 2019. -Because this effusion is chronic and unchanged, absence of clear clinical tamponade and thrombocytopenia, advise close clinical and echo follow up -Would reserve drainage procedure if effusion enlarges or if clinical changes indicative more clearly indicative of tamponade physiology. L[facility]: -sec to sepsis -renal fxn improving with IVF, supportive care COPD: -per crit care, hospitalist Anemia/guaiac + stool: -plan per PMD and GI
--- NOTE | 2019-04-25 14:37 | PN ---
Progress Note (short form) - Note Progress Note: PULMONARY Reports intermittent shortness of breath with cough productive of yellowish sputum. No fevers recorded. Vital Signs Period Temp Pulse Resp BP Sys/Cárdenas Pulse Ox Last 24 Hr 98.3 F-99.5 F 92-115 20-22 130-139/73-82 94 Gen: NAD at rest Heart: RRR Lung: decreased breath sounds at the bases Abd: soft, nontender Ext: no edema CBC, BMP 04/25/19 07:20 04/25/19 07:20 Active Medications Albuterol Sulfate (Ventolin 0.083% Nebulizer Soln -) 1 amp NEB Q4H PRN PRN Reason: SHORT OF BREATH/WHEEZING Albuterol/Ipratropium (Duoneb -) 1 amp NEB RQID [facility] Last Admin: 04/25/19 12:51 Dose: 1 amp Guaifenesin (Robitussin Dm -) 10 ml PO Q6H PRN PRN Reason: COUGH Last Admin: 04/25/19 05:17 Dose: 10 ml Pantoprazole Sodium 80 mg/ (Sodium Chloride) 100 mls @ 10 mls/hr IVPB Q10H [facility] Last Admin: 04/25/19 02:48 Dose: Not Given Meropenem 500 mg/ Dextrose 100 mls @ 200 mls/hr IVPB Q8H-IV [facility] Last Admin: 04/25/19 09:54 Dose: 200 mls/hr Sodium Chloride (1/2 Normal Saline) 1,000 mls @ 83 mls/hr IV ASDIR [facility] Last Admin: 04/25/19 09:08 Dose: 83 mls/hr Lorazepam (Ativan Injection -) 0.5 mg IM Q8H PRN PRN Reason: ANXIETY Last Admin: 04/25/19 05:17 Dose: 0.5 mg Ondansetron HCl (Zofran Injection) 4 mg IVPUSH Q6H PRN PRN Reason: NAUSEA AND/OR VOMITING Prednisone (Deltasone -) 20 mg PO DAILY [facility] Last Admin: 04/25/19 09:56 Dose: 20 mg Valacyclovir HCl (Valtrex -) 500 mg PO BID [facility] Last Admin: 04/25/19 09:56 Dose: 500 mg A/P UTI Gram Negative Bacteremia Severe Sepsis Acute Kidney Injury Lactic Acidosis resolved Anemia/Thrombocytopenia COPD Chronic Hypoxic Respiratory Failure Obstructive Sleep Apnea r/o Gastric Outlet Obstruction - continue antibiotics - IVF - monitor urine output, creatinine - inhaled bronchodilators - taper steroids down to home dose - O2 to keep SpO2 >90% - CPAP at night - monitor CBC - DVT prophylaxis
[2019-04-25] MEDS ORDERED: predniSONE 5 MG TABLET (UD) PO SCH (14:49)
--- NOTE | 2019-04-25 14:51 | PN ---
Progress Note (short form) - Note Progress Note: Hospitalist Medicine c/o cough with yellow sputum, without blood. Anxious. Otherwise without complaint. Discussed case at length w/ daughter over phone. Vitals 04/25/19 06:00 Temperature 98.4 F Pulse Rate 115 H Respiratory 22 H Rate Blood Pressure 139/82 Physical Exam general: resting in bed. anxious HEENT: NCAT, PERRLA, dry cracked lips. ulcerated pulm: decreased breath sounds throughout. no accessory m usage cardio: +tachy rate. no r/m/g abdomen: +diffusely tender to palpation. no guarding, or rigidity LE: no edema. 2+ pulses neuro: carcass splitter 2-12 grossly intact Laboratory Tests 04/25/19 04/25/19 07:20 07:20 WBC 7.0 Hgb 8.5 L Hct 25.3 L Plt Count 64 L Sodium 145 Potassium 3.6 Chloride 108 H BUN 27.9 H Creatinine 1.3 Random Glucose 120 H Calcium 6.8 L* Phosphorus 1.9 L Magnesium 1.6 L Total Bilirubin 0.7 Microbiology 04/21/19 13:00 Blood - Peripheral Venous Blood Culture - Final Escherichia Coli Esbl Dramatic Director 04/21/19 12:56 Urine - Urine Clean Catch Urine Culture - Final Gram Negative Jarret Assessment/Plan 73 y/o F with PMH COPD on 2L 02, JANETTE , BiPAP use, h/o partial lung resection - carcinoid, GERD, prior hx MRSA who presented with hypotension, N/V, coffee ground emesis and LUH. #COPD on 2L 02 #BiPAP use -c/w duonebs PRN -c/w BiPAP -started to taper prednisone. 20mg>15mg. at home alternates 5 and 10mg -Pulm consulted: Dr. Rausch #N/V/D, coffee ground emesis, possible 2/2 gastric outlet obstruction -c/t monitor H/H; has been stable -GI on board: Dr. Gore -d/c protonix gtt, started on protonix 40mg IVP BID -UGI series: reveals esophageal dysmotility with large, sliding hiatal hernia -d/w GI: EGD to occur later in stay, pt would like to d/w family #Chronic pericardial effusion -since 2018 -no JVD, hemodynamically stable -if develops tamponade then will need drainage #gram (-) sepsis 2/2 UTI -coverage changed to ertapenem (04/25) from tonio. Day 07/16 total. ESBL, PCN/ sulfa allergy -c/t f/u cx; including stool, c.diff -isolation precautions: past hx MRSA, now ESBL -ID on board: Dr. Ndiaye #oral HSV -c/w valtrex #LUH -resolving, downtrending -c/w IVF #anxiety -c/w ativan PRN -at baseline per daughter #F/E/N / ns 83 cc/hr continue to follow lytes; evie Phosph, Ca clear liquid diet, until speech/swallow. then may advance #PPX DVT: SCD's #Dispo monitoring on floor, on IV abx plan for EGD once infection improves
--- NOTE | 2019-04-25 15:13 | PN ---
Progress Note (short form) - Note Progress Note: awake and alert still reports loose stools Vital Signs Period Temp Pulse Resp BP Sys/Cárdenas Pulse Ox Last 24 Hr 98.3 F-99.5 F 92-115 20-22 130-139/73-82 94 dry blisters on her lips, ulcer on her tongue cor-rrr lungs decreased bs at bases abd soft,nt ext no edema CBC, BMP 04/25/19 07:20 04/25/19 07:20 Microbiology 04/21/19 12:59 Blood - Peripheral Venous Blood Culture - Preliminary NO GROWTH OBTAINED AFTER 96 HOURS, INCUBATION TO CONTINUE FOR 1 DAYS. 04/23/19 10:30 Stool Salmonella/Shigella Culture - Final NO GROWTH OF SALMONELLA OR SHIGELLA SPECIES OBTAINED 04/23/19 10:30 Stool Campylobacter Culture - Final NO GROWTH OF CAMPYLOBACTER SPECIES OBTAINED 04/23/19 10:30 Stool Yersinia Culture - Final NO GROWTH OF YERSINIA SPECIES OBTAINED 04/23/19 10:30 Stool Vibrio Culture - Final NO GROWTH OF VIBRIO SPECIES OBTAINED 04/23/19 10:30 Stool Escherichia coli 0157 Culture - Final NO GROWTH OF E COLI 0157 OBTAINED 04/23/19 06:15 Blood - Peripheral Venous Blood Culture - Preliminary NO GROWTH OBTAINED AFTER 48 HOURS, INCUBATION TO CONTINUE FOR 3 DAYS. 04/23/19 05:40 Blood - Peripheral Venous Blood Culture - Preliminary NO GROWTH OBTAINED AFTER 48 HOURS, INCUBATION TO CONTINUE FOR 3 DAYS. 04/22/19 18:00 Nares - Mrsa Screen - Left MRSA Screen - Final NO MRSA ISOLATED 04/22/19 18:00 Nares - Mrsa Screen - Right MRSA Screen - Final NO MRSA ISOLATED 04/21/19 13:00 Blood - Peripheral Venous Blood Culture - Final Escherichia Coli Esbl Check Inspector 04/23/19 10:30 Stool Gram Stain - Final 04/22/19 10:30 Stool Clostridioides difficile Antigen - Final 04/22/19 10:30 Stool Clostridioides difficile Toxin Assay - Final 04/21/19 12:56 Urine - Urine Clean Catch Urine Culture - Final Gram Negative Jarret Current Medications Albuterol Sulfate (Ventolin 0.083% Nebulizer Soln -) 1 amp NEB Q4H PRN PRN Reason: SHORT OF BREATH/WHEEZING Albuterol/Ipratropium (Duoneb -) 1 amp NEB RQID [facility] Last Admin: 04/25/19 12:51 Dose: 1 amp Guaifenesin (Robitussin Dm -) 10 ml PO Q6H PRN PRN Reason: COUGH Last Admin: 04/25/19 05:17 Dose: 10 ml Pantoprazole Sodium 80 mg/ (Sodium Chloride) 100 mls @ 10 mls/hr IVPB Q10H [facility] Last Admin: 04/25/19 15:03 Dose: Not Given Meropenem 500 mg/ Dextrose 100 mls @ 200 mls/hr IVPB Q8H-IV [facility] Last Admin: 04/25/19 09:54 Dose: 200 mls/hr Sodium Chloride (1/2 Normal Saline) 1,000 mls @ 83 mls/hr IV ASDIR [facility] Last Admin: 04/25/19 09:08 Dose: 83 mls/hr Lorazepam (Ativan Injection -) 0.5 mg IM Q8H PRN PRN Reason: ANXIETY Last Admin: 04/25/19 05:17 Dose: 0.5 mg Ondansetron HCl (Zofran Injection) 4 mg IVPUSH Q6H PRN PRN Reason: NAUSEA AND/OR VOMITING Potassium Phos/Sodium Phos (Phos-Nak Packet -) 1 packet PO BID [facility] Stop: 04/26/19 10:00 Prednisone (Deltasone -) 15 mg PO DAILY [facility] Valacyclovir HCl (Valtrex -) 500 mg PO BID [facility] Last Admin: 04/25/19 09:56 Dose: 500 mg a/p ecolie esbl bacteremia due to uti-switch to ertapenem to complete 10 days- day # 2 acute renal failure-resolved penicillin/sulfa allergy prior history of MRSA zgddxrlej-[id number]-vgget negative oral hsv- continue valtrex COPD on steroids thrombocytopenia-?sepsis continue to trend overall improved d/w daughter by phone Problem List - Problems (1) Sepsis Code(s): A41.9 - SEPSIS, UNSPECIFIED ORGANISM Qualifiers: Sepsis type: sepsis due to unspecified organism Sepsis acute organ dysfunction status: with acute organ dysfunction Severe sepsis acute organ dysfunction type: acute liver failure Hepatic coma status: without hepatic coma Severe sepsis shock status: without septic shock Qualified Code(s): A41.9 - Sepsis, unspecified organism; R65.20 - Severe sepsis without septic shock; K72.00 - Acute and subacute hepatic failure without coma (2) Acute renal failure Code(s): N17.9 - ACUTE KIDNEY FAILURE, UNSPECIFIED Qualifiers: Acute renal failure type: unspecified Qualified Code(s): N17.9 - Acute kidney failure, unspecified (3) COPD (chronic obstructive pulmonary disease) Code(s): J44.9 - CHRONIC OBSTRUCTIVE PULMONARY DISEASE, UNSPECIFIED (4) MRSA (methicillin resistant Staphylococcus aureus) colonization Code(s): Z22.322 - CARRIER OR SUSPECTED CARRIER OF METHICILLIN RESIS STAPH (5) Allergy to multiple antibiotics Code(s): Z88.1 - ALLERGY STATUS TO OTHER ANTIBIOTIC AGENTS STATUS
[2019-04-25] MEDS: NAPH,MB-DB/K PH,MBDB POWDER PACKET PO SCH ×2 (15:29→22:24)
--- NOTE | 2019-04-25 15:39 | PN.GI ---
GI Progress Note Subjective: Pt seen/examined at bedside, feeling better though still intermittent soft- loose stool 2 episodes today, no blood. Tolerating clear liquid diet, denies abdominal pain, n/v. Still with cough and dyspneic intermittently. Discussed with nursing staff. - Objective Vital Signs: Vital Signs Temperature 98.3 F 04/25/19 14:00 Pulse Rate 109 H 04/25/19 14:00 Respiratory Rate 22 H 04/25/19 14:00 Blood Pressure 134/80 04/25/19 14:00 O2 Sat by Pulse Oximetry (%) 94 L 04/25/19 08:45 Constitutional: No Distress, Calm Cardiovascular: Yes: WNL, Regular Rate and Rhythm Respiratory: Yes: Regular, Other (slightly tachypneic) ...Palpate: Yes: Other (Abd soft, nt, nd) Labs: CBC, BMP 04/25/19 07:20 04/25/19 07:20 INR, PTT INR 1.04 (0.83-1.09) 04/24/19 06:08 Problem List - Problems (1) Nausea & vomiting Assessment/Plan: s/p UGI series revealing large hiatal hernia and thickened gastric folds, otherwise unremarkable. No further n/v. Tolerating clear liquid diet. Diarrhea appears to be improving, c difficile negative. -Clear liquid diet for now -Can obtain speech/swallow evaluation and advance as tolerated -PPI bid -Continue optimization from respiratory and ID standpoint -Monitor BM frequency -EGD to further evaluate once pt is further optimized. Discussed risks/benefits with pt and she would like to consider further and discuss with her family before pursuing. -If change in clinical status or overt bleeding in the interim please notify GI Discussed with medicine team Code(s): R11.2 - NAUSEA WITH VOMITING, UNSPECIFIED
--- NOTE | 2019-04-25 18:22 | PN ---
Teaching Attending Note Name of Resident: China Mayorga ATTENDING PHYSICIAN STATEMENT I saw and evaluated the patient. I reviewed the resident's note and discussed the case with the resident. I agree with the resident's findings and plan as documented. SUBJECTIVE: Patient complains of cough. OBJECTIVE: Vital Signs Period Temp Pulse Resp BP Sys/Cárdenas Pulse Ox Last 24 Hr 98.1 F-99.5 F 92-115 20-22 124-139/73-82 94 HEART: S1S2, RRR LUNGS: Clear with decreased BS ABDOMEN: Soft, mild diffuse tenderness, non-distended, normal BS EXTREMITIES: No edema Laboratory Results - last 24 hr 04/25/19 04/25/19 07:20 07:20 WBC 7.0 RBC 2.81 L Hgb 8.5 L Hct 25.3 L MCV 90.3 MCH 30.1 MCHC 33.3 RDW 13.6 Plt Count 64 L MPV 8.4 Absolute Neuts (auto) 5.2 Neutrophils % 74.6 Lymphocytes % 9.9 Monocytes % 12.5 H Eosinophils % 2.7 Basophils % 0.3 Nucleated RBC % 0 Sodium 145 Potassium 3.6 Chloride 108 H Carbon Dioxide 31 Anion Gap 6 L BUN 27.9 H Creatinine 1.3 Est GFR (CKD-EPI)AfAm 47.13 Est GFR (CKD-EPI)NonAf 40.67 Random Glucose 120 H Calcium 6.8 L* Phosphorus 1.9 L Magnesium 1.6 L Total Bilirubin 0.7 AST 22 ALT 26 Alkaline Phosphatase 73 Total Protein 4.6 L Albumin 2.5 L Current Medications Generic Name Dose Route Start Last Admin Trade Name Freq PRN Reason Stop Dose Admin Albuterol Sulfate 1 amp 04/24/19 10:21 Ventolin 0.083% Nebulizer Soln - NEB Q4H PRN SHORT OF BREATH/WHEEZING Albuterol/Ipratropium 1 amp 04/24/19 12:00 04/25/19 16:31 Duoneb - NEB 1 amp RQID [facility] Administration Guaifenesin 10 ml 04/24/19 09:17 04/25/19 15:28 Robitussin Dm - PO 10 ml Q6H PRN Administration COUGH Sodium Chloride 1,000 mls @ 83 mls/hr 04/24/19 17:30 04/25/19 09:08 1/2 Normal Saline IV 83 mls/hr ASDIR [facility] Administration Ertapenem 1 gm/ Sodium 50 mls @ 100 mls/hr 04/25/19 15:30 Chloride IVPB DAILY [facility] Lorazepam 0.5 mg 04/24/19 09:17 04/25/19 05:17 Ativan Injection - IM 0.5 mg Q8H PRN Administration ANXIETY Ondansetron HCl 4 mg 04/24/19 09:17 Zofran Injection IVPUSH Q6H PRN NAUSEA AND/OR VOMITING Pantoprazole Sodium 40 mg 04/25/19 22:00 Protonix Iv IVPUSH BID [facility] Potassium Phos/Sodium Phos 1 packet 04/25/19 14:50 04/25/19 15:29 Phos-Nak Packet - PO 04/26/19 10:00 1 packet BID [facility] Administration Prednisone 15 mg 04/25/19 14:49 Deltasone - PO DAILY [facility] Valacyclovir HCl 500 mg 04/24/19 22:00 04/25/19 09:56 Valtrex - PO 500 mg BID [facility] Administration ASSESSMENT AND PLAN: This is a 73 year old woman with a history of chronic hypoxic respiratory failure, COPD, JANETTE, carcinoid with partial lung resection, GERD who presented to the ED with abdominal pain, vomiting, and diarrhea. 1. Severe sepsis secondary to UTI with ESBL E. coli bacteremia - Cefepime changed to ertapenem - Blood cultures 04/23 negative so far 2. Nausea, vomiting, diarrhea - Improved - Possible partial gastric outlet obstruction - Will need EGD 3. Acute kidney injury - Continues to improve 4. Chronic hypoxic respiratory failure secondary to COPD, JANETTE - Continue oxygen to maintain saturation >90% - Continue Prednisone, DuoNeb - BiPAP at night 5. Pericardial effusion, chronic - No clinical signs of tamponade - Continue monitoring by echo - Pericardiocentesis if evidence of tamponade develops 6. Acute anemia - Secondary to sepsis and GI blood loss with vomiting/diarrhea - Stool positive for occult blood - Continue Protonix - Continue to monitor hgb and transfuse as needed - Will need EGD 7. Hypophosphatemia - Phosphorus supplementation 8. Hypomagnesemia - Magnesium supplementation
[2019-04-25] MEDS: ERTAPENEM SODIUM 1 GM in SODIUM CHLORIDE 50 ML IVPB SCH (19:03)
--- NOTE | 2019-04-25 19:49 | PN ---
Progress Note, Physician History of Present Illness: Pt seen and examined at bedside. She is awake and alert. She still has some diarrhea. - Current Medication List Current Medications: Active Medications Albuterol Sulfate (Ventolin 0.083% Nebulizer Soln -) 1 amp NEB Q4H PRN PRN Reason: SHORT OF BREATH/WHEEZING Albuterol/Ipratropium (Duoneb -) 1 amp NEB RQID [facility] Last Admin: 04/25/19 16:31 Dose: 1 amp Guaifenesin (Robitussin Dm -) 10 ml PO Q6H PRN PRN Reason: COUGH Last Admin: 04/25/19 15:28 Dose: 10 ml Sodium Chloride (1/2 Normal Saline) 1,000 mls @ 83 mls/hr IV ASDIR [facility] Last Admin: 04/25/19 09:08 Dose: 83 mls/hr Ertapenem 1 gm/ Sodium (Chloride) 50 mls @ 100 mls/hr IVPB DAILY [facility] Last Admin: 04/25/19 19:03 Dose: 100 mls/hr Lorazepam (Ativan Injection -) 0.5 mg IM Q8H PRN PRN Reason: ANXIETY Last Admin: 04/25/19 05:17 Dose: 0.5 mg Ondansetron HCl (Zofran Injection) 4 mg IVPUSH Q6H PRN PRN Reason: NAUSEA AND/OR VOMITING Pantoprazole Sodium (Protonix Iv) 40 mg IVPUSH BID [facility] Potassium Phos/Sodium Phos (Phos-Nak Packet -) 1 packet PO BID [facility] Stop: 04/26/19 10:00 Last Admin: 04/25/19 15:29 Dose: 1 packet Prednisone (Deltasone -) 15 mg PO DAILY [facility] Valacyclovir HCl (Valtrex -) 500 mg PO BID [facility] Last Admin: 04/25/19 09:56 Dose: 500 mg - Objective Vital Signs: Vital Signs Temperature 98.1 F 04/25/19 17:46 Pulse Rate 94 H 04/25/19 17:46 Respiratory Rate 20 04/25/19 17:46 Blood Pressure 124/80 04/25/19 17:46 O2 Sat by Pulse Oximetry (%) 96 04/25/19 15:00 Constitutional: Yes: Calm Eyes: Yes: Conjunctiva Clear HENT: Yes: Atraumatic Cardiovascular: Yes: S1, S2 Respiratory: Yes: CTA Bilaterally Gastrointestinal: Yes: Normal Bowel Sounds, Soft Genitourinary: Yes: WNL Musculoskeletal: Yes: WNL Edema: No Neurological: Yes: Oriented Labs: CBC, BMP 04/25/19 07:20 04/25/19 07:20 INR, PTT INR 1.04 (0.83-1.09) 04/24/19 06:08 Problem List - Problems (1) Acute renal failure Code(s): N17.9 - ACUTE KIDNEY FAILURE, UNSPECIFIED Qualifiers: Acute renal failure type: unspecified Qualified Code(s): N17.9 - Acute kidney failure, unspecified (2) COPD (chronic obstructive pulmonary disease) Code(s): J44.9 - CHRONIC OBSTRUCTIVE PULMONARY DISEASE, UNSPECIFIED (3) Sepsis Code(s): A41.9 - SEPSIS, UNSPECIFIED ORGANISM Qualifiers: Sepsis type: sepsis due to unspecified organism Sepsis acute organ dysfunction status: with acute organ dysfunction Severe sepsis acute organ dysfunction type: acute liver failure Hepatic coma status: without hepatic coma Severe sepsis shock status: without septic shock Qualified Code(s): A41.9 - Sepsis, unspecified organism; R65.20 - Severe sepsis without septic shock; K72.00 - Acute and subacute hepatic failure without coma Assessment/Plan Current Medications Generic Name Dose Route Start Last Admin Trade Name Freq PRN Reason Stop Dose Admin Albuterol Sulfate 1 amp 04/24/19 10:21 Ventolin 0.083% Nebulizer Soln - NEB Q4H PRN SHORT OF BREATH/WHEEZING Albuterol/Ipratropium 1 amp 04/24/19 12:00 04/25/19 16:31 Duoneb - NEB 1 amp RQID [facility] Administration Guaifenesin 10 ml 04/24/19 09:17 04/25/19 15:28 Robitussin Dm - PO 10 ml Q6H PRN Administration COUGH Sodium Chloride 1,000 mls @ 83 mls/hr 04/24/19 17:30 04/25/19 09:08 1/2 Normal Saline IV 83 mls/hr ASDIR [facility] Administration Ertapenem 1 gm/ Sodium 50 mls @ 100 mls/hr 04/25/19 15:30 04/25/19 19:03 Chloride IVPB 100 mls/hr DAILY [facility] Administration Lorazepam 0.5 mg 04/24/19 09:17 04/25/19 05:17 Ativan Injection - IM 0.5 mg Q8H PRN Administration ANXIETY Ondansetron HCl 4 mg 04/24/19 09:17 Zofran Injection IVPUSH Q6H PRN NAUSEA AND/OR VOMITING Pantoprazole Sodium 40 mg 04/25/19 22:00 Protonix Iv IVPUSH BID [facility] Potassium Phos/Sodium Phos 1 packet 04/25/19 14:50 04/25/19 15:29 Phos-Nak Packet - PO 04/26/19 10:00 1 packet BID [facility] Administration Prednisone 15 mg 04/25/19 14:49 Deltasone - PO DAILY [facility] Valacyclovir HCl 500 mg 04/24/19 22:00 04/25/19 09:56 Valtrex - PO 500 mg BID [facility] Administration Impression 1. LUH 2. hyperkalemia 3. sepsis 4. copd 5. anxiety 6. hypotension Plan - decrease rate of fluids - calcium supplements - encourage po intake - repeat labs in am - renal function is improved
[2019-04-25] MEDS: CALCIUM 500MG/VIT-D 200 UNITS COMBO TABLET (FP) PO SCH (22:24)
[2019-04-25] MEDS: PANTOPRAZOLE SODIUM 40 MG VIAL IVPUSH SCH (22:24)
[2019-04-26] MEDS ORDERED: clonazePAM 0.5 MG TABLET PO ONE (00:01)
[2019-04-26] MEDS: ALBUTEROL SO4 2.5/IPRATROPIUM 0.5 INH SOL 3 ML VIAL.NEB. NEB SCH ×4 (07:20→20:50)
[2019-04-26] MEDS ORDERED: PT OWN MED DRAWER 7, Y5N ONE (10:06)
[2019-04-26] MEDS ORDERED: SODIUM CHLORIDE NASAL SPRAY 44 ML BOTTLE NS PRN (10:09)
--- NOTE | 2019-04-26 10:09 | PN ---
Progress Note (short form) - Note Progress Note: PULMONARY Breathing better, still with cough. c/o bloody nose. No fevers recorded. Some diarrhea today. Vital Signs Period Temp Pulse Resp BP Sys/Cárdenas Pulse Ox Last 24 Hr 98.1 F-98.4 F 94-109 20- 110-142/56-82 96-96 Gen: NAD at rest Heart: RRR Lung: decreased breath sounds at the bases Abd: soft, nontender Ext: no edema CBC, BMP 04/25/19 07:20 04/25/19 07:20 Active Medications Albuterol Sulfate (Ventolin 0.083% Nebulizer Soln -) 1 amp NEB Q4H PRN PRN Reason: SHORT OF BREATH/WHEEZING Albuterol/Ipratropium (Duoneb -) 1 amp NEB RQID [facility] Last Admin: 04/26/19 07:20 Dose: 1 amp Calcium Carbonate/Cholecalciferol (Os-Mikie 500+D -) 2 tab PO DAILY [facility] Last Admin: 04/25/19 22:24 Dose: 2 tab Guaifenesin (Robitussin Dm -) 10 ml PO Q6H PRN PRN Reason: COUGH Last Admin: 04/25/19 22:24 Dose: 10 ml Ertapenem 1 gm/ Sodium (Chloride) 50 mls @ 100 mls/hr IVPB DAILY [facility] Last Admin: 04/25/19 19:03 Dose: 100 mls/hr Sodium Chloride (1/2 Normal Saline) 1,000 mls @ 65 mls/hr IV ASDIR [facility] Last Admin: 04/25/19 22:25 Dose: Not Given Lorazepam (Ativan Injection -) 0.5 mg IM Q8H PRN PRN Reason: ANXIETY Last Admin: 04/25/19 05:17 Dose: 0.5 mg Ondansetron HCl (Zofran Injection) 4 mg IVPUSH Q6H PRN PRN Reason: NAUSEA AND/OR VOMITING Pantoprazole Sodium (Protonix Iv) 40 mg IVPUSH BID [facility] Last Admin: 04/25/19 22:24 Dose: 40 mg Prednisone (Deltasone -) 15 mg PO DAILY [facility] Valacyclovir HCl (Valtrex -) 500 mg PO BID [facility] Last Admin: 04/25/19 22:24 Dose: 500 mg A/P UTI Gram Negative Bacteremia Severe Sepsis Acute Kidney Injury Lactic Acidosis resolved Anemia/Thrombocytopenia COPD Chronic Hypoxic Respiratory Failure Obstructive Sleep Apnea r/o Gastric Outlet Obstruction - continue antibiotics - IVF - monitor urine output, creatinine - inhaled bronchodilators - taper steroids down to home dose - O2 to keep SpO2 >90% - CPAP at night - monitor CBC - DVT prophylaxis
--- NOTE | 2019-04-26 10:09 | CONSULT ---
Admitting History and Physical - Primary Care Physician PCP: Alexander Turner - Admission History of Present Illness: 73 y/o F with PMH COPD on 2L 02, JANETTE , BiPAP use, h/o partial lung resection - carcinoid, GERD, prior hx MRSA who presented with hypotension, N/V, coffee ground emesis and LUH. [place] esbl bacteremia due to uti Cough Chronic hypoxic respiratory failure secondary to COPD, JANETTE On clear liquids This is my first consult with this pt. Pt reports solids sticking at time in her chest but denies vomiting or needing to bring it back up. She burps a lot and takes Protonix at 12 in Assisted living with her meal. She prefers "soft foods" but likes salads. Pt sometimes coughs while eating.She has dinner at 530, and goes to bed at 8-830. She usually stays upright after meals. She reports that "diarrhea started up again". History Source: Patient Limitations to Obtaining History: No Limitations - Past Medical History Cardiovascular: Yes: HTN, Hyperlipdemia Pulmonary: Yes: COPD, O2 Dependent Gastrointestinal: Yes: Hiatal Hernia ...: No Psych: Yes: Depression - Smoking History Smoking history: Former smoker Have you smoked in the past 12 months: No If you are a former smoker, when did you quit?: 4 years ago - Alcohol/Substance Use Hx Alcohol Use: No History - Admission Reason For Visit: ACUTE RENAL FAILURE,SEPSIS, UPPER GASTROINTESTINAL - Diagnostics X-ray: Report Reviewed Other: Report Reviewed (UGI series revealing large hiatal hernia and thickened gastric folds. Extensive esoph dysmotility with tertiary contractions.) - General Mental Status: Alert and Oriented, Awake and Alert, Able to Follow Commands Attention: Intact Ability to Follow Directions: Excellent Head/Neck Control: WFL - Hearing Hearing: Normal Hearing Aide: No With Patient: No Speech Evaluation - Communication Primary Language: LATVIAN Communication: Yes: Within Normal Limits Oral Expression Ability: Yes: No Impairment - Speech Production Able to Make Needs Known: Yes: WNL Intelligibility: Yes: WNL - Speech Characteristics Voice Loudness: Normal Voice Pitch: Yes: Normal Voice Phonatory-based Quality: Yes: Normal Speech Pattern: Normal Speech Clarity: < 100% Nasal Resonance: Normal Articulation: Yes: Precise Rate of Speech: Intact - Language/Auditory Comprehension Follows: Yes: 2 Stage Simple Commands - Language/Verbal Expression Able to Respond to Simple Queries: Yes: WNL Able to Communicate Wants and Needs: Yes: WNL Functional Communication Status: Yes: WNL - Memory/Perception medical terminologist Memory: Yes: WNL Short Term Memory: Yes: WNL - Swallow Evaluation/Bedside Assessment Current Nutritional Intake: Clear Liquids Oral Secretions: Yes: WFL (scabs healing on lips. Oral cavity seems clear) Dentition: Yes: Adequate, Missing Teeth Facial Symmetry at Rest: Symmetrical Facial Symmetry on Retraction: Symmetrical Facial Movement: Controlled (occasional lip tremor/twitch) Sensation: Normal Against Resistance Opening: Normal Against Resistance Closing: Normal Pucker Lips: Normal Smile: Normal Lingual Movement: Normal, Symmetric Lingual Speed of Movement: Normal Lingual Movement Strgth Against Opposition: Normal Lingual Movement Characteristics: Normal Velopharyngeal Movement: Normal Laryngeal Elevation: WFL Laryngeal Movement: Able to Palpate Rate of Intake: WFL Bolus Size: WFL Labial Seal: WFL Chewing: WFL Oral Prep Time: WFL A-P Transit: WFL Pocketing: None Timing of Swallow: WFL Coughing/Throat Clear: No Change in Voice: No Recommendations - Speech Evaluation, Impression/Plan Impression: Symptoms of food sticking intermittently, mid chest, belching, needing to eat slowly, occasional cough likely sec to extensive esophageal dysmotility/tertiary contractions noted on UGI. Pt reports Diarrhea again. GI noted requested Sp/sw eval re motility to upgrade diet. - Dysphagia Impressions/Plan Swallowing Skills: Impaired Dysphagia Impressions: Risk of Aspiration (retrograde) *Silent aspiration: cannot be R/O at bedside Dysphagia Treatment Plan: 1/2 tsp. at a time, OOB for meals, OOB for 1 h. after meals, Other (Avoid PO intake w/in a couple of hours of bedtime. Alternate solids with liquids. Complete meals with liquids. Several small meals throughout the day.) Recommendations: MBS w Esophagus (to r/o aspiration and determine tolerance of po diet for upgrade.)
[2019-04-26] MEDS: CALCIUM 500MG/VIT-D 200 UNITS COMBO TABLET (FP) PO SCH (10:13)
[2019-04-26] MEDS: NAPH,MB-DB/K PH,MBDB POWDER PACKET PO SCH (10:13)
[2019-04-26] MEDS: valACYclovir HCL 500 MG TABLET (FP) PO SCH ×2 (10:13→22:24)
[2019-04-26] MEDS: PANTOPRAZOLE SODIUM 40 MG VIAL IVPUSH SCH (10:14)
[2019-04-26 11:19] LABS: BASO % 0.4 % (0-2.0); EOS % 3.2 % (0-4.5); HEMATOCRIT 25.7 % (32.4-45.2); HEMOGLOBIN 8.6 GM/dL (10.7-15.3); LYMPH % 17.3 % (8-40); MCH 30.2 pg (25.7-33.7); MCHC 33.5 g/dl (32.0-36.0); MEAN CELL VOLUME 90.2 fl (80-96); MEAN PLT VOLUME 8.6 fl (7.5-11.1); MONO % 18.8 % (3.8-10.2); NEUT % 60.3 % (42.8-82.8); PLATELET COUNT 83 K/MM3 (134-434); RBC 2.85 M/mm3 (3.60-5.2); RDW 13.8 % (11.6-15.6); WHITE BLOOD COUNT 5.4 K/mm3 (4.0-10.0)
[2019-04-26] MEDS: ERTAPENEM SODIUM 1 GM in SODIUM CHLORIDE 50 ML IVPB SCH (11:39)
[2019-04-26 12:09] LABS: ALBUMIN 2.7 g/dl (3.4-5.0); BILIRUBIN,TOTAL 0.5 mg/dL (0.2-1); BLOOD UREA NITROGEN 16.6 mg/dL (7-18); CREATININE 1.1 mg/dL (0.55-1.3); MAGNESIUM 1.4 mg/dL (1.8-2.4); PHOSPHOROUS 2.8 mg/dL (2.5-4.9); POTASSIUM 3.4 mmol/L (3.5-5.1); TOT PROT 4.9 g/dl (6.4-8.2)
[2019-04-26 12:12] LABS: ANISOCYTOSIS 0; MACROCYTOSIS 0; PLATELET ESTIMATE DECREASED
[2019-04-26 12:13] LABS: CALCIUM 6.9 mg/dL (8.5-10.1)
--- NOTE | 2019-04-26 13:24 | PN ---
Progress Note (short form) - Note Progress Note: Hospitalist Medicine Overnight, received Klonopin x 1 for anxiety. States that she feels better today. In good spirits. Still w/loose BM however less frequent Vitals 04/26/19 06:00 Temperature 98.1 F Pulse Rate 97 H Respiratory 22 H Rate Blood Pressure 142/56 L Physical Exam general: resting in bed. pleasant. in NAD HEENT: NCAT, PERRLA, dry cracked lips. ulcerated pulm: decreased breath sounds throughout. no accessory m usage cardio: +reg rate.S1, S2, RRR. no r/m/g abdomen: +suprapubic tenderness. no guarding, or rigidity LE: no edema. 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 Laboratory Tests 04/26/19 04/26/19 10:44 10:44 WBC 5.4 Hgb 8.6 L Hct 25.7 L Plt Count 83 L D Sodium 143 Potassium 3.4 L Carbon Dioxide 30 Anion Gap 7 L BUN 16.6 Creatinine 1.1 Calcium 6.9 L* Magnesium 1.4 L Total Protein 4.9 L Albumin 2.7 L Microbiology 04/23/19 10:30 Stool Salmonella/Shigella Culture - Final 04/23/19 10:30 Stool Escherichia coli 0157 Culture - Final NO GROWTH OF SALMONELLA OR SHIGELLA SPECIES OBTAINED NO GROWTH OF CAMPYLOBACTER SPECIES OBTAINED NO GROWTH OF YERSINIA SPECIES OBTAINED NO GROWTH OF VIBRIO SPECIES OBTAINED NO GROWTH OF E COLI 0157 OBTAINED 04/23/19 10:30 Stool Gram Stain - Final 04/22/19 18:00 Nares - Mrsa Screen - Right MRSA Screen - Final NO MRSA ISOLATED 04/22/19 18:00 Nares - Mrsa Screen - Left MRSA Screen - Final NO MRSA ISOLATED 04/22/19 10:30 Stool Clostridioides difficile Antigen - Final 04/22/19 10:30 Stool Clostridioides difficile Toxin Assay - Final 04/21/19 13:00 Blood - Peripheral Venous Blood Culture - Final Escherichia Coli Esbl Adult Daycare Coordinator 04/21/19 12:59 Blood - Peripheral Venous Blood Culture - Final NO GROWTH AFTER 5 DAYS INCUBATION 04/21/19 12:56 Urine - Urine Clean Catch Urine Culture - Final Gram Negative Jarret 04/23/19 06:15 Blood - Peripheral Venous Blood Culture - Preliminary NO GROWTH OBTAINED AFTER 72 HOURS, INCUBATION TO CONTINUE FOR 2 DAYS. 04/23/19 05:40 Blood - Peripheral Venous Blood Culture - Preliminary NO GROWTH OBTAINED AFTER 72 HOURS, INCUBATION TO CONTINUE FOR 2 DAYS. Assessment/Plan 73 y/o F with PMH COPD on 2L 02, JANETTE on CPAP, h/o partial lung resection - carcinoid, GERD, prior hx MRSA who presented with hypotension, N/V, coffee ground emesis and LUH. #COPD on 2L 02 #CPAP use -c/w duonebs PRN -c/w CPAP -started to taper prednisone. 15mg day 2 today. will taper tomorrow to home dose: alternates 5 and 10mg -Pulm consulted: Dr. Rausch #N/V/D, coffee ground emesis, possible 2/2 gastric outlet obstruction -c/t monitor H/H; has been stable -asa is held -on protonix 40mg IVP BID -UGI series: reveals esophageal dysmotility with large, sliding hiatal hernia -f/u modified barium swallow -d/w GI: EGD to occur later in stay, pt would like to d/w family -GI: Dr. Meier #Chronic pericardial effusion -since 2018 -no JVD, hemodynamically stable -if develops tamponade then will need drainage #gram (-) sepsis 2/2 UTI -coverage changed to ertapenem (04/25) from tonio. Day 08/13 total. ESBL, PCN/ sulfa allergy -c/t f/u cx; including stool, c.diff -isolation precautions: past hx MRSA, now ESBL -ID on board: Dr. Ndiaye #oral HSV -c/w valtrex #LUH - resolved #anxiety -c/w ativan PRN -at home takes klonopin. may require i-stop -at baseline per daughter #F/E/N off IVF continue to follow lytes clear liquid diet, until MBS. then may advance #PPX DVT: SCD's #Dispo monitoring on floor, on IV abx plan for EGD once infection improves <China Mayorga - Last Filed: 04/26/19 13:24> - Note Progress Note: Seen and examined; please see resident note for further information. Agree with above as documented aside from as supplemented by myself. Personally verified all gonzalez historical details, PE findings, as well as all labs, imaging, and diagnostics. Discussed at length with resident and indicated consultants. 10 sys ROS done and negative aside from HPI NAD, AAO, resting in bed NC AT EOMI PERRLA HR wnl, s1/2+ Lungs CTAB, w/ sym exp NT ND +BS CN2-12 wnl, no fnd Normal mood, appropriate behavior, average insight Trachea midline, no JVD Upper GI series revealing large hiatal hernia and thickened gastric folds MBS reviewed CXR reviewed Admission CT noted Micro noted w/ ESBL+EC. A/P: Patient continues on IV abx and is pending scope; renal, ID, and GI continue to follow. No new acute issues. Problems include: -Sepsis 2/2 ESBL+ E. ColiComplicated UTI (on carbepenem per ID for prolonged course, no issues noted. D/W specialty services. -Recurring UTIs -Pericardial effusion (Per CV this is chronic small to moderate since at least April 2018, negative on PET scan which she had done for lung nodule. Prior echos have had equivocal findings of tamponade, as does current study but clinically she has not shown any instability or signs/ symptoms of tamponade. Currently with no clinical signs of active tamponade but will be vigilant. If clinically indicated will need drainage.) -LHU, Improved (followup with nephrology) -Chronic hypoxic respiratory failure secondary to COPD, JANETTE (Continue BDs, steroids per pulm. C/W O2 w/o changes today) -Acute on chronic anemia (Likely chronic disease with likely acute blood loss anemia component, pending EGD when clinically appropriate per GI services. No acute bleeding noted. Continue to trend CBC. -Hypophosphatemia (Improved, continue to trend) -Hypomagnesemia (Improved, continue to trend) -HSV on valtrex -HyperK (Lokalma, not kayexalate, to be given. 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 If worsens consider psych consult. Consider medication tx with SNRI, etc.) -Multiple allergies (Unrelated groups such as latex, PNC, sulfa, opioids. Should discuss with pt and PCP if needed nonurgently) -Hx HTN (Controlled) <Alexander Turner - Last Filed: 05/07/19 02:41>
[2019-04-26] MEDS ORDERED: MAGNESIUM OXIDE 400 MG TABLET (FP) PO ONE (13:27)
[2019-04-26] MEDS ORDERED: POTASSIUM CHLORIDE TABS 20 MEQ TABLET.ER (FP) PO ONE (13:30)
[2019-04-26] MEDS ORDERED: CALCIUM CARBONATE 650 MG TABLET PO ONE (15:00)
--- NOTE | 2019-04-26 15:48 | PN ---
Progress Note (short form) - Note Progress Note: s: no chest pain, palps, dizziness, dyspnea Current Medications Albuterol Sulfate (Ventolin 0.083% Nebulizer Soln -) 1 amp NEB Q4H PRN PRN Reason: SHORT OF BREATH/WHEEZING Albuterol/Ipratropium (Duoneb -) 1 amp NEB RQID [facility] Last Admin: 04/26/19 11:20 Dose: 1 amp Calcium Carbonate/Cholecalciferol (Os-Mikie 500+D -) 2 tab PO DAILY [facility] Last Admin: 04/26/19 10:13 Dose: 2 tab Guaifenesin (Robitussin Dm -) 10 ml PO Q6H PRN PRN Reason: COUGH Last Admin: 04/25/19 22:24 Dose: 10 ml Ertapenem 1 gm/ Sodium (Chloride) 50 mls @ 100 mls/hr IVPB DAILY [facility] Last Admin: 04/26/19 11:39 Dose: 100 mls/hr Sodium Chloride (1/2 Normal Saline) 1,000 mls @ 65 mls/hr IV ASDIR [facility] Last Admin: 04/25/19 22:25 Dose: Not Given Lorazepam (Ativan Injection -) 0.5 mg IM Q8H PRN PRN Reason: ANXIETY Last Admin: 04/25/19 05:17 Dose: 0.5 mg Ondansetron HCl (Zofran Injection) 4 mg IVPUSH Q6H PRN PRN Reason: NAUSEA AND/OR VOMITING Pantoprazole Sodium (Protonix Iv) 40 mg IVPUSH BID [facility] Last Admin: 04/26/19 10:14 Dose: 40 mg Prednisone (Deltasone -) 15 mg PO DAILY [facility] Last Admin: 04/26/19 10:13 Dose: 15 mg Sodium Chloride ([place] Nasal [place] -) 2 spray NS TID PRN PRN Reason: NASAL CONGESTION Last Admin: 04/26/19 11:39 Dose: 2 sprays Valacyclovir HCl (Valtrex -) 500 mg PO BID [facility] Last Admin: 04/26/19 10:13 Dose: 500 mg Vital Signs Period Temp Pulse Resp BP Sys/Cárdenas Pulse Ox Last 24 Hr 98.1 F-98.4 F 94-97 20-22 110-142/56-82 96 Constitutional: Yes: No Distress Cardiovascular: Yes: Regular Rate and Rhythm, Tachycardia, Other (no JVD) Respiratory: Yes: Other (severely reduced breath sounds bilaterally- chronic. C/ W COPD. No active wheezing.) Gastrointestinal: Yes: Soft Edema: No Neurological: Yes: Alert, Oriented no jaundice, diaphoresis not agitated Assessment/Plan 73 yo female with HTN, HPL and hiatal hernia here with early sepsis-like clinical picture secondary to UTI, gram negative sepsis and ARF in setting of acute sepsis. Sepsis, gram neg bacteremia, gram neg UTI: -abx per ID -cont IVF Tachycardia: Sinus occurs in setting of infection, anemia. Physiologic response. -Patient has no obstructive CAD on cath done in 02/2019, trop neg here -Tachycardia is responsive to underlying sepsis - cont abx per primary, ID Pericardial effusion: - Chronic since at least April 2018, negative on PET scan which she had done for lung nodule. -This effusion has been small to moderate in size since 2018 and stable. -Prior echos have had equivocal findings of tamponade, as does current study but clinically she has not shown any instability or signs/ symptoms of tamponade. -no JVD, hemodynamically stable, tachy likely sec to sepsis/anxiety/anemia -Current study with similar size chronic effusion, and with indeterminate/ equivocal features for tamponade similar to study in January 2019. -Because this effusion is chronic and unchanged, absence of clear clinical tamponade and thrombocytopenia, advise close clinical and echo follow up -Would reserve drainage procedure if effusion enlarges or if clinical changes indicative more clearly indicative of tamponade physiology. LUH: -sec to sepsis -renal fxn improving with IVF, supportive care COPD: -per crit care, hospitalist Anemia/guaiac + stool: -plan per PMD and GI
--- NOTE | 2019-04-26 16:19 | PN ---
Progress Note, Physician History of Present Illness: Pt seen and examined at bedside. She is awake and alert. She denies shortness of breath. - Current Medication List Current Medications: Active Medications Albuterol Sulfate (Ventolin 0.083% Nebulizer Soln -) 1 amp NEB Q4H PRN PRN Reason: SHORT OF BREATH/WHEEZING Albuterol/Ipratropium (Duoneb -) 1 amp NEB RQID [facility] Last Admin: 04/26/19 11:20 Dose: 1 amp Calcium Carbonate/Cholecalciferol (Os-Mikie 500+D -) 2 tab PO DAILY [facility] Last Admin: 04/26/19 10:13 Dose: 2 tab Guaifenesin (Robitussin Dm -) 10 ml PO Q6H PRN PRN Reason: COUGH Last Admin: 04/25/19 22:24 Dose: 10 ml Ertapenem 1 gm/ Sodium (Chloride) 50 mls @ 100 mls/hr IVPB DAILY [facility] Last Admin: 04/26/19 11:39 Dose: 100 mls/hr Sodium Chloride (1/2 Normal Saline) 1,000 mls @ 65 mls/hr IV ASDIR [facility] Last Admin: 04/25/19 22:25 Dose: Not Given Lorazepam (Ativan Injection -) 0.5 mg IM Q8H PRN PRN Reason: ANXIETY Last Admin: 04/25/19 05:17 Dose: 0.5 mg Ondansetron HCl (Zofran Injection) 4 mg IVPUSH Q6H PRN PRN Reason: NAUSEA AND/OR VOMITING Pantoprazole Sodium (Protonix Iv) 40 mg IVPUSH BID [facility] Last Admin: 04/26/19 10:14 Dose: 40 mg Prednisone (Deltasone -) 15 mg PO DAILY [facility] Last Admin: 04/26/19 10:13 Dose: 15 mg Sodium Chloride ([place] Nasal [place] -) 2 spray NS TID PRN PRN Reason: NASAL CONGESTION Last Admin: 04/26/19 11:39 Dose: 2 sprays Valacyclovir HCl (Valtrex -) 500 mg PO BID [facility] Last Admin: 04/26/19 10:13 Dose: 500 mg - Objective Vital Signs: Vital Signs Temperature 98.1 F 04/26/19 06:00 Pulse Rate 97 H 04/26/19 06:00 Respiratory Rate 22 H 04/26/19 06:00 Blood Pressure 142/56 L 11/21/19 06:00 O2 Sat by Pulse Oximetry (%) 96 04/26/19 00:00 Constitutional: Yes: Calm Eyes: Yes: Conjunctiva Clear HENT: Yes: Atraumatic Cardiovascular: Yes: S1, S2 Respiratory: Yes: CTA Bilaterally Gastrointestinal: Yes: Normal Bowel Sounds, Soft Genitourinary: Yes: WNL Musculoskeletal: Yes: WNL Edema: No Neurological: Yes: Oriented Psychiatric: Yes: Oriented Labs: CBC, BMP 04/26/19 10:44 04/26/19 10:44 INR, PTT INR 1.04 (0.83-1.09) 04/24/19 06:08 Problem List - Problems (1) Acute renal failure Code(s): N17.9 - ACUTE KIDNEY FAILURE, UNSPECIFIED Qualifiers: Acute renal failure type: unspecified Qualified Code(s): N17.9 - Acute kidney failure, unspecified (2) COPD (chronic obstructive pulmonary disease) Code(s): J44.9 - CHRONIC OBSTRUCTIVE PULMONARY DISEASE, UNSPECIFIED (3) Sepsis Code(s): A41.9 - SEPSIS, UNSPECIFIED ORGANISM Qualifiers: Sepsis type: sepsis due to unspecified organism Sepsis acute organ dysfunction status: with acute organ dysfunction Severe sepsis acute organ dysfunction type: acute liver failure Hepatic coma status: without hepatic coma Severe sepsis shock status: without septic shock Qualified Code(s): A41.9 - Sepsis, unspecified organism; R65.20 - Severe sepsis without septic shock; K72.00 - Acute and subacute hepatic failure without coma Assessment/Plan Current Medications Generic Name Dose Route Start Last Admin Trade Name Freq PRN Reason Stop Dose Admin Albuterol Sulfate 1 amp 04/24/19 10:21 Ventolin 0.083% Nebulizer Soln - NEB Q4H PRN SHORT OF BREATH/WHEEZING Albuterol/Ipratropium 1 amp 04/24/19 12:00 04/26/19 11:20 Duoneb - NEB 1 amp RQID [facility] Administration Calcium Carbonate/Cholecalciferol 2 tab 04/25/19 20:00 04/26/19 10:13 Os-Mikie 500+D - PO 2 tab DAILY [facility] Administration Guaifenesin 10 ml 04/24/19 09:17 04/25/19 22:24 Robitussin Dm - PO 10 ml Q6H PRN Administration COUGH Ertapenem 1 gm/ Sodium 50 mls @ 100 mls/hr 04/25/19 15:30 04/26/19 11:39 Chloride IVPB 100 mls/hr DAILY [facility] Administration Sodium Chloride 1,000 mls @ 65 mls/hr 04/25/19 19:49 04/25/19 22:25 1/2 Normal Saline IV Not Given ASDIR [facility] Lorazepam 0.5 mg 04/24/19 09:17 04/25/19 05:17 Ativan Injection - IM 0.5 mg Q8H PRN Administration ANXIETY Ondansetron HCl 4 mg 04/24/19 09:17 Zofran Injection IVPUSH Q6H PRN NAUSEA AND/OR VOMITING Pantoprazole Sodium 40 mg 04/25/19 22:00 04/26/19 10:14 Protonix Iv IVPUSH 40 mg BID [facility] Administration Prednisone 15 mg 04/25/19 14:49 04/26/19 10:13 Deltasone - PO 15 mg DAILY [facility] Administration Sodium Chloride 2 spray 04/26/19 10:09 04/26/19 11:39 [place] Nasal [place] - NS 2 sprays TID PRN Administration NASAL CONGESTION Valacyclovir HCl 500 mg 04/24/19 22:00 04/26/19 10:13 Valtrex - PO 500 mg BID [facility] Administration Impression 1. LUH 2. hyperkalemia 3. sepsis 4. copd 5. anxiety 6. hypotension Plan - decrease fluids further - replace potassium - calcium supplements - encourage po intake - repeat labs in am
--- NOTE | 2019-04-26 17:51 | PN.GI ---
GI Progress Note Subjective: No acute events No abdominal pain - Objective Vital Signs: Vital Signs Temperature 98.3 F 04/26/19 10:00 Pulse Rate 101 H 04/26/19 10:00 Respiratory Rate 22 H 04/26/19 10:00 Blood Pressure 138/76 04/26/19 10:00 O2 Sat by Pulse Oximetry (%) 96 04/26/19 09:00 Constitutional: Calm Eyes: No: Sclera Icterus Cardiovascular: Yes: Regular Rate and Rhythm Respiratory: Yes: Diminished (at bases bilaterally) Gastrointestinal Inspection: No: Distention ...Auscultate: Yes: Normoactive Bowel Sounds ...Palpate: Yes: Soft. No: Hepatomegaly, Splenomegaly, Tenderness ...Percussion: No: Tympanitic Edema: No (No LE edema) Neurological: Yes: Alert Labs: CBC, BMP 04/26/19 10:44 04/26/19 10:44 INR, PTT INR 1.04 (0.83-1.09) 04/24/19 06:08 Problem List - Problems (1) Nausea & vomiting Assessment/Plan: s/p UGI series revealing large hiatal hernia and thickened gastric folds, otherwise unremarkable. No further n/v. Tolerating clear liquid diet. Diarrhea appears to be improving, c difficile negative. -Advance to full liquids -Can obtain speech/swallow evaluation and advance as tolerated -Protonix 40mg daily -Continue optimization from respiratory and ID standpoint -Monitor BM frequency -EGD to further evaluate once pt is further optimized. Again, discussed risks/ benefits with pt and she would like to consider further and discuss with her family before pursuing. She is concerned with anesthesia and does not want to feel rushed -If change in clinical status or overt bleeding in the interim please notify GI Code(s): R11.2 - NAUSEA WITH VOMITING, UNSPECIFIED
--- NOTE | 2019-04-26 18:28 | PN ---
Progress Note (short form) - Note Progress Note: awake and alert loose stools improved swallowing study noted Vital Signs Period Temp Pulse Resp BP Sys/Cárdenas Pulse Ox Last 24 Hr 98.1 F-98.4 F 95-101 20-22 110-142/56-82 96-96 cor-rrr lulngs scattred rhonchi abd soft, nt ext- bruising both arms CBC, BMP 04/26/19 10:44 04/26/19 10:44 Microbiology 04/21/19 12:59 Blood - Peripheral Venous Blood Culture - Final NO GROWTH AFTER 5 DAYS INCUBATION 04/23/19 06:15 Blood - Peripheral Venous Blood Culture - Preliminary NO GROWTH OBTAINED AFTER 72 HOURS, INCUBATION TO CONTINUE FOR 2 DAYS. 04/23/19 05:40 Blood - Peripheral Venous Blood Culture - Preliminary NO GROWTH OBTAINED AFTER 72 HOURS, INCUBATION TO CONTINUE FOR 2 DAYS. 04/23/19 10:30 Stool Salmonella/Shigella Culture - Final NO GROWTH OF SALMONELLA OR SHIGELLA SPECIES OBTAINED 04/23/19 10:30 Stool Campylobacter Culture - Final NO GROWTH OF CAMPYLOBACTER SPECIES OBTAINED 04/23/19 10:30 Stool Yersinia Culture - Final NO GROWTH OF YERSINIA SPECIES OBTAINED 04/23/19 10:30 Stool Vibrio Culture - Final NO GROWTH OF VIBRIO SPECIES OBTAINED 04/23/19 10:30 Stool Escherichia coli 0157 Culture - Final NO GROWTH OF E COLI 0157 OBTAINED 04/22/19 18:00 Nares - Mrsa Screen - Left MRSA Screen - Final NO MRSA ISOLATED 04/22/19 18:00 Nares - Mrsa Screen - Right MRSA Screen - Final NO MRSA ISOLATED 04/21/19 13:00 Blood - Peripheral Venous Blood Culture - Final Escherichia Coli Esbl Linux Administrator 04/23/19 10:30 Stool Gram Stain - Final 04/22/19 10:30 Stool Clostridioides difficile Antigen - Final 04/22/19 10:30 Stool Clostridioides difficile Toxin Assay - Final 04/21/19 12:56 Urine - Urine Clean Catch Urine Culture - Final Gram Negative Jarret Current Medications Albuterol Sulfate (Ventolin 0.083% Nebulizer Soln -) 1 amp NEB Q4H PRN PRN Reason: SHORT OF BREATH/WHEEZING Albuterol/Ipratropium (Duoneb -) 1 amp NEB RQID [facility] Last Admin: 04/26/19 16:00 Dose: 1 amp Calcium Carbonate/Cholecalciferol (Os-Mikie 500+D -) 2 tab PO DAILY [facility] Last Admin: 04/26/19 10:13 Dose: 2 tab Guaifenesin (Robitussin Dm -) 10 ml PO Q6H PRN PRN Reason: COUGH Last Admin: 04/25/19 22:24 Dose: 10 ml Ertapenem 1 gm/ Sodium (Chloride) 50 mls @ 100 mls/hr IVPB DAILY [facility] Last Admin: 04/26/19 11:39 Dose: 100 mls/hr Potassium Chloride/Sodium Chloride (1/2ns+20meq Kcl) 20 meq in 1,000 mls @ 40 mls/hr IV ASDIR [facility] Lorazepam (Ativan Injection -) 0.5 mg IM Q8H PRN PRN Reason: ANXIETY Last Admin: 04/25/19 05:17 Dose: 0.5 mg Ondansetron HCl (Zofran Injection) 4 mg IVPUSH Q6H PRN PRN Reason: NAUSEA AND/OR VOMITING Pantoprazole Sodium (Protonix -) 40 mg PO DAILY [facility] Prednisone (Deltasone -) 15 mg PO DAILY [facility] Last Admin: 04/26/19 10:13 Dose: 15 mg Sodium Chloride ([place] Nasal [place] -) 2 spray NS TID PRN PRN Reason: NASAL CONGESTION Last Admin: 04/26/19 11:39 Dose: 2 sprays Valacyclovir HCl (Valtrex -) 500 mg PO BID [facility] Last Admin: 04/26/19 10:13 Dose: 500 mg a/p ecolie esbl bacteremia due to uti- ertapenem to complete 10 days- day #3 acute renal failure-resolved penicillin/sulfa allergy prior history of MRSA vevjsjzxw-uqjfvowy-dxukv negative oral hsv- continue valtrex COPD on steroids thrombocytopenia-improving overall improved further w/u per GI Problem List - Problems (1) Sepsis Code(s): A41.9 - SEPSIS, UNSPECIFIED ORGANISM Qualifiers: Sepsis type: sepsis due to unspecified organism Sepsis acute organ dysfunction status: with acute organ dysfunction Severe sepsis acute organ dysfunction type: acute liver failure Hepatic coma status: without hepatic coma Severe sepsis shock status: without septic shock Qualified Code(s): A41.9 - Sepsis, unspecified organism; R65.20 - Severe sepsis without septic shock; K72.00 - Acute and subacute hepatic failure without coma (2) Acute renal failure Code(s): N17.9 - ACUTE KIDNEY FAILURE, UNSPECIFIED Qualifiers: Acute renal failure type: unspecified Qualified Code(s): N17.9 - Acute kidney failure, unspecified (3) COPD (chronic obstructive pulmonary disease) Code(s): J44.9 - CHRONIC OBSTRUCTIVE PULMONARY DISEASE, UNSPECIFIED (4) MRSA (methicillin resistant Staphylococcus aureus) colonization Code(s): Z22.322 - CARRIER OR SUSPECTED CARRIER OF METHICILLIN RESIS STAPH (5) Allergy to multiple antibiotics Code(s): Z88.1 - ALLERGY STATUS TO OTHER ANTIBIOTIC AGENTS STATUS
[2019-04-26] MEDS: LORazepam 2 MG/ML SDV VIAL IM PRN (22:24)
[2019-04-27] MEDS: SODIUM CHLORIDE 0.45%/POT 20 MEQ/1,000 ML INFUS.BAG IV SCH ×2 (01:25→07:20)
[2019-04-27] MEDS: ALBUTEROL SO4 0.083% IH SOL 2.5 MG/3 ML VIAL.NEB. NEB PRN (02:56)
[2019-04-27] MEDS: ALBUTEROL SO4 2.5/IPRATROPIUM 0.5 INH SOL 3 ML VIAL.NEB. NEB SCH ×4 (08:07→20:00)
[2019-04-27 09:08] LABS: BASO % 0.4 % (0-2.0); EOS % 4.2 % (0-4.5); HEMATOCRIT 25.1 % (32.4-45.2); HEMOGLOBIN 8.5 GM/dL (10.7-15.3); LYMPH % 19.9 % (8-40); MCH 30.5 pg (25.7-33.7); MCHC 33.9 g/dl (32.0-36.0); MEAN CELL VOLUME 89.9 fl (80-96); MEAN PLT VOLUME 8.6 fl (7.5-11.1); MONO % 13.1 % (3.8-10.2); NEUT % 62.4 % (42.8-82.8); PLATELET COUNT 116 K/MM3 (134-434); RBC 2.79 M/mm3 (3.60-5.2); RDW 13.4 % (11.6-15.6); WHITE BLOOD COUNT 6.1 K/mm3 (4.0-10.0)
[2019-04-27 09:29] LABS: ALBUMIN 2.8 g/dl (3.4-5.0); BILIRUBIN,TOTAL 0.5 mg/dL (0.2-1); BLOOD UREA NITROGEN 14.4 mg/dL (7-18); CALCIUM 7.2 mg/dL (8.5-10.1); CREATININE 0.9 mg/dL (0.55-1.3); MAGNESIUM 1.4 mg/dL (1.8-2.4); PHOSPHOROUS 3.2 mg/dL (2.5-4.9); POTASSIUM 3.3 mmol/L (3.5-5.1); TOT PROT 4.9 g/dl (6.4-8.2)
[2019-04-27] MEDS ORDERED: POTASSIUM CHLORIDE TABS 20 MEQ TABLET.ER (FP) PO ONE (10:00)
[2019-04-27] MEDS: ERTAPENEM SODIUM 1 GM in SODIUM CHLORIDE 50 ML IVPB SCH (10:17)
[2019-04-27] MEDS: CALCIUM 500MG/VIT-D 200 UNITS COMBO TABLET (FP) PO SCH (10:17)
[2019-04-27] MEDS: PANTOPRAZOLE 40 MG TABLET (FP) PO SCH (10:18)
[2019-04-27] MEDS: valACYclovir HCL 500 MG TABLET (FP) PO SCH ×2 (10:18→21:40)
[2019-04-27] MEDS ORDERED: MAGNESIUM SULF 50% (8.12 MEQ/2 ML-1 GM VIAL) IVPB ONE (11:04)
[2019-04-27] MEDS ORDERED: POTASSIUM CHLORIDE ORAL LIQUID 20 MEQ/15 ML PO ONE (11:04)
[2019-04-27] MEDS ORDERED: clonazePAM 0.5 MG TABLET PO SCH (11:15)
[2019-04-27 12:29] LABS: ANISOCYTOSIS 0; MACROCYTOSIS 0; PLATELET ESTIMATE DECREASED
--- NOTE | 2019-04-27 13:20 | PN ---
Progress Note (short form) - Note Progress Note: PULMONARY Concerned over possible EGD OOB to chair vss/afebrile NIV hs/prn Gen: NAD at rest Heart: RRR Lung: decreased breath sounds at the bases Abd: soft, nontender Ext: no edema notes/meds/images/labs reviewed A/P UTI Gram Negative Bacteremia Severe Sepsis Acute Kidney Injury Lactic Acidosis resolved Anemia/Thrombocytopenia COPD Chronic Hypoxic Respiratory Failure Obstructive Sleep Apnea r/o Gastric Outlet Obstruction - continue antibiotics - IVF - monitor urine output, creatinine - inhaled bronchodilators - taper steroids down to home dose - O2 to keep SpO2 >90% - CPAP at night - monitor CBC - DVT prophylaxis Leila BROWER MD
[2019-04-27] MEDS: predniSONE 5 MG TABLET (UD) PO SCH (15:04)
[2019-04-27 15:11] VITALS: BMI 25.7
--- NOTE | 2019-04-27 15:35 | PN ---
Progress Note, Physician History of Present Illness: Pt seen and examined at bedside. She is awake and alert. She is tolerating diet. - Current Medication List Current Medications: Active Medications Albuterol Sulfate (Ventolin 0.083% Nebulizer Soln -) 1 amp NEB Q4H PRN PRN Reason: SHORT OF BREATH/WHEEZING Last Admin: 04/27/19 02:56 Dose: 1 amp Albuterol/Ipratropium (Duoneb -) 1 amp NEB RQID [facility] Last Admin: 04/27/19 11:35 Dose: 1 amp Calcium Carbonate/Cholecalciferol (Os-Mikie 500+D -) 2 tab PO DAILY [facility] Last Admin: 04/27/19 10:17 Dose: 2 tab Clonazepam (Klonopin -) 1 mg PO DAILY [facility] Last Admin: 04/27/19 11:42 Dose: 1 mg Guaifenesin (Robitussin Dm -) 10 ml PO Q6H PRN PRN Reason: COUGH Last Admin: 04/25/19 22:24 Dose: 10 ml Ertapenem 1 gm/ Sodium (Chloride) 50 mls @ 100 mls/hr IVPB DAILY [facility] Last Admin: 04/27/19 10:17 Dose: 100 mls/hr Potassium Chloride/Sodium Chloride (1/2ns+20meq Kcl) 20 meq in 1,000 mls @ 40 mls/hr IV ASDIR [facility] Last Admin: 04/27/19 07:20 Dose: 40 mls/hr Ondansetron HCl (Zofran Injection) 4 mg IVPUSH Q6H PRN PRN Reason: NAUSEA AND/OR VOMITING Pantoprazole Sodium (Protonix -) 40 mg PO DAILY [facility] Last Admin: 04/27/19 10:18 Dose: 40 mg Prednisone (Deltasone -) 10 mg PO DAILY [facility] Last Admin: 04/27/19 15:04 Dose: 10 mg Sodium Chloride ([place] Nasal [place] -) 2 spray NS TID PRN PRN Reason: NASAL CONGESTION Last Admin: 04/26/19 11:39 Dose: 2 sprays Valacyclovir HCl (Valtrex -) 500 mg PO BID [facility] Last Admin: 04/27/19 10:18 Dose: 500 mg - Objective Vital Signs: Vital Signs Temperature 98.8 F 04/27/19 10:00 Pulse Rate 111 H 04/27/19 10:00 Respiratory Rate 24 H 04/27/19 10:00 Blood Pressure 130/67 04/27/19 10:00 O2 Sat by Pulse Oximetry (%) 96 04/27/19 09:00 Constitutional: Yes: Calm Eyes: Yes: Conjunctiva Clear HENT: Yes: Atraumatic Neck: Yes: Supple Cardiovascular: Yes: S1, S2 Respiratory: Yes: On Nasal O2 Gastrointestinal: Yes: Soft Genitourinary: Yes: WNL Musculoskeletal: Yes: WNL Edema: No Neurological: Yes: Oriented Psychiatric: Yes: Oriented Labs: CBC, BMP 04/27/19 07:04 04/27/19 07:04 INR, PTT INR 1.04 (0.83-1.09) 04/24/19 06:08 Problem List - Problems (1) Acute renal failure Code(s): N17.9 - ACUTE KIDNEY FAILURE, UNSPECIFIED Qualifiers: Acute renal failure type: unspecified Qualified Code(s): N17.9 - Acute kidney failure, unspecified (2) COPD (chronic obstructive pulmonary disease) Code(s): J44.9 - CHRONIC OBSTRUCTIVE PULMONARY DISEASE, UNSPECIFIED (3) Sepsis Code(s): A41.9 - SEPSIS, UNSPECIFIED ORGANISM Qualifiers: Sepsis type: sepsis due to unspecified organism Sepsis acute organ dysfunction status: with acute organ dysfunction Severe sepsis acute organ dysfunction type: acute liver failure Hepatic coma status: without hepatic coma Severe sepsis shock status: without septic shock Qualified Code(s): A41.9 - Sepsis, unspecified organism; R65.20 - Severe sepsis without septic shock; K72.00 - Acute and subacute hepatic failure without coma Assessment/Plan Current Medications Generic Name Dose Route Start Last Admin Trade Name Freq PRN Reason Stop Dose Admin Albuterol Sulfate 1 amp 04/24/19 10:21 04/27/19 02:56 Ventolin 0.083% Nebulizer Soln - NEB 1 amp Q4H PRN Administration SHORT OF BREATH/WHEEZING Albuterol/Ipratropium 1 amp 04/24/19 12:00 04/27/19 11:35 Duoneb - NEB 1 amp RQID [facility] Administration Calcium Carbonate/Cholecalciferol 2 tab 04/25/19 20:00 04/27/19 10:17 Os-Mikie 500+D - PO 2 tab DAILY [facility] Administration Clonazepam 1 mg 04/27/19 11:15 04/27/19 11:42 Klonopin - PO 1 mg DAILY [facility] Administration Guaifenesin 10 ml 04/24/19 09:17 04/25/19 22:24 Robitussin Dm - PO 10 ml Q6H PRN Administration COUGH Ertapenem 1 gm/ Sodium 50 mls @ 100 mls/hr 04/25/19 15:30 04/27/19 10:17 Chloride IVPB 100 mls/hr DAILY [facility] Administration Potassium Chloride/Sodium Chloride 20 meq in 1,000 mls @ 40 mls/hr 04/26/19 16 :20 04/27/19 07:20 1/2ns+20meq Kcl IV 40 mls/hr ASDIR [facility] Administration Ondansetron HCl 4 mg 04/24/19 09:17 Zofran Injection IVPUSH Q6H PRN NAUSEA AND/OR VOMITING Pantoprazole Sodium 40 mg 04/27/19 10:00 04/27/19 10:18 Protonix - PO 40 mg DAILY [facility] Administration Prednisone 10 mg 04/27/19 14:49 04/27/19 15:04 Deltasone - PO 10 mg DAILY [facility] Administration Sodium Chloride 2 spray 04/26/19 10:09 04/26/19 11:39 [place] Nas[place] - NS 2 sprays TID PRN Administration NASAL CONGESTION Valacyclovir HCl 500 mg 04/24/19 22:00 04/27/19 10:18 Valtrex - PO 500 mg BID [facility] Administration Impression 1. LUH 2. hyperkalemia 3. sepsis 4. copd 5. anxiety 6. hypotension Plan - replace potassium - pt tolerating diet - can hold fluids for now - calcium supplements - encourage po intake - repeat labs in am
--- NOTE | 2019-04-27 16:58 | PN ---
Progress Note (short form) - Note Progress Note: awake and alert loose stools improved has intermittent cough Vital Signs Period Temp Pulse Resp BP Sys/Cárdenas Pulse Ox Last 24 Hr 97.9 F-99 F 86-111 22-24 115-135/63-81 96-98 cor-rrr lungs clear abd soft,nt ext no edema CBC, BMP 04/27/19 07:04 04/27/19 07:04 Microbiology 04/23/19 05:40 Blood - Peripheral Venous Blood Culture - Preliminary NO GROWTH OBTAINED AFTER 96 HOURS, INCUBATION TO CONTINUE FOR 1 DAYS. 04/23/19 06:15 Blood - Peripheral Venous Blood Culture - Preliminary NO GROWTH OBTAINED AFTER 96 HOURS, INCUBATION TO CONTINUE FOR 1 DAYS. 04/21/19 12:59 Blood - Peripheral Venous Blood Culture - Final NO GROWTH AFTER 5 DAYS INCUBATION 04/23/19 10:30 Stool Salmonella/Shigella Culture - Final NO GROWTH OF SALMONELLA OR SHIGELLA SPECIES OBTAINED 04/23/19 10:30 Stool Campylobacter Culture - Final NO GROWTH OF CAMPYLOBACTER SPECIES OBTAINED 04/23/19 10:30 Stool Yersinia Culture - Final NO GROWTH OF YERSINIA SPECIES OBTAINED 04/23/19 10:30 Stool Vibrio Culture - Final NO GROWTH OF VIBRIO SPECIES OBTAINED 04/23/19 10:30 Stool Escherichia coli 0157 Culture - Final NO GROWTH OF E COLI 0157 OBTAINED 04/22/19 18:00 Nares - Mrsa Screen - Left MRSA Screen - Final NO MRSA ISOLATED 04/22/19 18:00 Nares - Mrsa Screen - Right MRSA Screen - Final NO MRSA ISOLATED 04/21/19 13:00 Blood - Peripheral Venous Blood Culture - Final Escherichia Coli Esbl Spray Painter Helper 04/23/19 10:30 Stool Gram Stain - Final 04/22/19 10:30 Stool Clostridioides difficile Antigen - Final 04/22/19 10:30 Stool Clostridioides difficile Toxin Assay - Final 04/21/19 12:56 Urine - Urine Clean Catch Urine Culture - Final Gram Negative Jarret a/p ecolie esbl bacteremia due to uti- ertapenem to complete 10 days- day #4/10 acute renal failure-resolved penicillin/sulfa allergy prior history of MRSA juxgpkpst-vxxhuzvr-osndf negative oral hsv- continue valtrex COPD on steroids thrombocytopenia-recovering add probiotics overall improved further w/u per GI d/w proxy at bedside please call back if needed Problem List - Problems (1) Sepsis Code(s): A41.9 - SEPSIS, UNSPECIFIED ORGANISM Qualifiers: Sepsis type: sepsis due to unspecified organism Sepsis acute organ dysfunction status: with acute organ dysfunction Severe sepsis acute organ dysfunction type: acute liver failure Hepatic coma status: without hepatic coma Severe sepsis shock status: without septic shock Qualified Code(s): A41.9 - Sepsis, unspecified organism; R65.20 - Severe sepsis without septic shock; K72.00 - Acute and subacute hepatic failure without coma (2) Acute renal failure Code(s): N17.9 - ACUTE KIDNEY FAILURE, UNSPECIFIED Qualifiers: Acute renal failure type: unspecified Qualified Code(s): N17.9 - Acute kidney failure, unspecified (3) COPD (chronic obstructive pulmonary disease) Code(s): J44.9 - CHRONIC OBSTRUCTIVE PULMONARY DISEASE, UNSPECIFIED (4) MRSA (methicillin resistant Staphylococcus aureus) colonization Code(s): Z22.322 - CARRIER OR SUSPECTED CARRIER OF METHICILLIN RESIS STAPH (5) Allergy to multiple antibiotics Code(s): Z88.1 - ALLERGY STATUS TO OTHER ANTIBIOTIC AGENTS STATUS
--- NOTE | 2019-04-27 17:49 | PN ---
Progress Note (short form) - Note Progress Note: Hospitalist Medicine States that she feels better today. Still mildly anxious over possibility of EGD procedure. Improved BM's Vitals 04/27/19 14:00 Temperature 98.2 F Pulse Rate 105 H Respiratory 22 H Rate Blood Pressure 115/63 Physical Exam general: resting in bed. pleasant. in NAD HEENT: NCAT, PERRLA, dry cracked lips. ulcerated pulm: decreased breath sounds throughout. no accessory m usage cardio: +reg rate.S1, S2, RRR. no r/m/g abdomen: +suprapubic tenderness. no guarding, or rigidity LE: no edema. 2+ pulses neuro: intermediate designer 2-12 grossly intact Laboratory Tests 04/27/19 04/27/19 07:04 07:04 WBC 6.1 Hgb 8.5 L Hct 25.1 L Plt Count 116 L D Sodium 143 Potassium 3.3 L BUN 14.4 Creatinine 0.9 Magnesium 1.4 L Microbiology 04/23/19 10:30 Stool Salmonella/Shigella Culture - Final 04/23/19 10:30 Stool Escherichia coli 0157 Culture - Final NO GROWTH OF SALMONELLA OR SHIGELLA SPECIES OBTAINED NO GROWTH OF CAMPYLOBACTER SPECIES OBTAINED NO GROWTH OF YERSINIA SPECIES OBTAINED NO GROWTH OF VIBRIO SPECIES OBTAINED NO GROWTH OF E COLI 0157 OBTAINED 04/23/19 10:30 Stool Gram Stain - Final 04/22/19 18:00 Nares - Mrsa Screen - Right MRSA Screen - Final NO MRSA ISOLATED 04/22/19 18:00 Nares - Mrsa Screen - Left MRSA Screen - Final NO MRSA ISOLATED 04/22/19 10:30 Stool Clostridioides difficile Antigen - Final 04/22/19 10:30 Stool Clostridioides difficile Toxin Assay - Final 04/21/19 13:00 Blood - Peripheral Venous Blood Culture - Final Escherichia Coli Esbl Geophysical E Logger 04/21/19 12:59 Blood - Peripheral Venous Blood Culture - Final NO GROWTH AFTER 5 DAYS INCUBATION 04/21/19 12:56 Urine - Urine Clean Catch Urine Culture - Final Gram Negative Jarret 04/23/19 06:15 Blood - Peripheral Venous Blood Culture - Preliminary NO GROWTH OBTAINED AFTER 96 HOURS, INCUBATION TO CONTINUE FOR 1 DAYS. 04/23/19 05:40 Blood - Peripheral Venous Blood Culture - Preliminary NO GROWTH OBTAINED AFTER 96 HOURS, INCUBATION TO CONTINUE FOR 1 DAYS. Assessment/Plan 73 y/o F with PMH COPD on 2L 02, JANETTE on CPAP, h/o partial lung resection - carcinoid, GERD, prior hx MRSA who presented with hypotension, N/V, coffee ground emesis and LUH. #COPD on 2L 02 #CPAP use -c/w duonebs PRN -c/w CPAP -started to taper prednisone. tapered to 10mg tomorrow change to home dose: alternating 5 and 10mg every other day -Pulm consulted: Dr. Rausch #N/V/D, coffee ground emesis, possible 2/2 gastric outlet obstruction -c/t monitor H/H; has been stable -asa is held -on protonix 40 mg PO qd -UGI series: reveals esophageal dysmotility with large, sliding hiatal hernia -d/w GI: EGD to occur later in stay -GI: Dr. Meier #Chronic pericardial effusion -since 2018 -no JVD, hemodynamically stable -if develops tamponade then will need drainage #gram (-) sepsis 2/2 UTI -coverage changed to ertapenem (04/25) from tonio. Day 09/13 total. ESBL, PCN/ sulfa allergy -started on bacid. -recent cx (-) -isolation precautions: past hx MRSA, now ESBL -ID on board: Dr. Rojas #oral HSV -c/w valtrex #LUH - resolved #anxiety -restarted home klonopin 1mg qd -d/c ativan -at baseline per daughter #F/E/N off IVF continue to follow lytes dysphagia chopped diet #PPX DVT: SCD's #Dispo monitoring on floor, on IV abx plan for EGD once infection improves <China Mayorga - Last Filed: 04/27/19 17:52> - Note Progress Note: Seen and examined; please see resident note for further information. Agree with above as documented aside from as supplemented by myself. Personally verified all gonzalez historical details, PE findings, as well as all labs, imaging, and diagnostics. Discussed at length with resident and indicated consultants. No further issues 10 sys ROS done and negative aside from HPI NAD, AAO, resting in bed NC AT EOMI PERRLA HR wnl, s1/2+ Lungs CTAB, w/ sym exp NT ND +BS CN2-12 wnl, no fnd Normal mood, appropriate behavior, average insight Trachea midline, no JVD Upper GI series revealing large hiatal hernia and thickened gastric folds MBS reviewed CXR reviewed Admission CT noted Micro noted w/ ESBL+EC. A/P: Patient continues on IV abx and is pending scope; renal, ID, and GI continue to follow. No new acute issues. Problems include: -Sepsis 2/2 ESBL+ E. ColiComplicated UTI (on carbepenem per ID for prolonged course, no issues noted. D/W specialty services. -Recurring UTIs -Pericardial effusion (Per CV this is chronic small to moderate since at least April 2018, negative on PET scan which she had done for lung nodule. Prior echos have had equivocal findings of tamponade, as does current study but clinically she has not shown any instability or signs/ symptoms of tamponade. Currently with no clinical signs of active tamponade but will be vigilant. If clinically indicated will need drainage.) -LUH, Improved (followup with nephrology) -Chronic hypoxic respiratory failure secondary to COPD, JANETTE (Continue BDs, steroids per pulm. C/W O2 w/o changes today) -Acute on chronic anemia (Likely chronic disease with likely acute blood loss anemia component, pending EGD when clinically appropriate per GI services. No acute bleeding noted. Continue to trend CBC. -Hypophosphatemia (Improved, continue to trend) -Hypomagnesemia (Improved, continue to trend) -HSV on valtrex -HyperK (Lokalma, not kayexalate, to be given. 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 If worsens consider psych consult. Consider medication tx with SNRI, etc.) -Multiple allergies (Unrelated groups such as latex, PNC, sulfa, opioids. Should discuss with pt and PCP if needed nonurgently) -Hx HTN (Controlled) <Alexander Turner - Last Filed: 05/07/19 02:40>
[2019-04-27] MEDS: guaiFENesin/D-METHORPHAN HB 10 ML UNIT-DOSE CUPS PO PRN (18:34)
[2019-04-27] MEDS: clonazePAM 0.5 MG TABLET PO SCH (21:39)
[2019-04-28] MEDS: ALBUTEROL SO4 2.5/IPRATROPIUM 0.5 INH SOL 3 ML VIAL.NEB. NEB SCH ×4 (08:37→20:20)
[2019-04-28] MEDS: ERTAPENEM SODIUM 1 GM in SODIUM CHLORIDE 50 ML IVPB SCH (10:39)
[2019-04-28] MEDS: CALCIUM 500MG/VIT-D 200 UNITS COMBO TABLET (FP) PO SCH (10:40)
[2019-04-28] MEDS: valACYclovir HCL 500 MG TABLET (FP) PO SCH ×2 (10:40→21:17)
[2019-04-28] MEDS: clonazePAM 0.5 MG TABLET PO SCH (10:40)
[2019-04-28] MEDS: LACTOBACILLUS ACIDOPHILUS 1 TABLET PO SCH (10:41)
[2019-04-28] MEDS: PANTOPRAZOLE 40 MG TABLET (FP) PO SCH (10:41)
[2019-04-28] MEDS: predniSONE 5 MG TABLET (UD) PO SCH (10:41)
[2019-04-28 10:45] LABS: ALBUMIN 2.7 g/dl (3.4-5.0); BILIRUBIN,TOTAL 0.3 mg/dL (0.2-1); BLOOD UREA NITROGEN 15.3 mg/dL (7-18); CALCIUM 7.7 mg/dL (8.5-10.1); CREATININE 0.9 mg/dL (0.55-1.3); MAGNESIUM 1.8 mg/dL (1.8-2.4); POTASSIUM 4.5 mmol/L (3.5-5.1); TOT PROT 4.9 g/dl (6.4-8.2)
--- NOTE | 2019-04-28 11:03 | PN ---
Progress Note (short form) - Note Progress Note: PULMONARY Breathing better, still with cough. No fevers recorded. Vital Signs Period Temp Pulse Resp BP Sys/Cárdenas Pulse Ox Last 24 Hr 98 F-98.5 F 90-114 20-220 115-136/63-84 96 Gen: NAD at rest Heart: RRR Lung: decreased breath sounds at the bases Abd: soft, nontender Ext: no edema CBC, BMP 04/27/19 07:04 04/28/19 09:05 Active Medications Albuterol Sulfate (Ventolin 0.083% Nebulizer Soln -) 1 amp NEB Q4H PRN PRN Reason: SHORT OF BREATH/WHEEZING Last Admin: 04/27/19 02:56 Dose: 1 amp Albuterol/Ipratropium (Duoneb -) 1 amp NEB RQID [facility] Last Admin: 04/28/19 08:37 Dose: 1 amp Calcium Carbonate/Cholecalciferol (Os-Mikie 500+D -) 2 tab PO DAILY [facility] Last Admin: 04/28/19 10:40 Dose: 2 tab Clonazepam (Klonopin -) 1 mg PO DAILY [facility] Last Admin: 04/28/19 10:40 Dose: 1 mg Guaifenesin (Robitussin Dm -) 10 ml PO Q6H PRN PRN Reason: COUGH Last Admin: 04/27/19 18:34 Dose: 10 ml Ertapenem 1 gm/ Sodium (Chloride) 50 mls @ 100 mls/hr IVPB DAILY [facility] Last Admin: 04/28/19 10:39 Dose: 100 mls/hr Lactobacillus Acidophilus (Bacid -) 1 tab PO DAILY [facility] Last Admin: 04/28/19 10:41 Dose: 1 tab Ondansetron HCl (Zofran Injection) 4 mg IVPUSH Q6H PRN PRN Reason: NAUSEA AND/OR VOMITING Pantoprazole Sodium (Protonix -) 40 mg PO DAILY [facility] Last Admin: 04/28/19 10:41 Dose: 40 mg Prednisone (Deltasone -) 10 mg PO DAILY [facility] Last Admin: 04/28/19 10:41 Dose: 10 mg Sodium Chloride ([place] Nasal [place] -) 2 spray NS TID PRN PRN Reason: NASAL CONGESTION Last Admin: 04/26/19 11:39 Dose: 2 sprays Valacyclovir HCl (Valtrex -) 500 mg PO BID [facility] Last Admin: 04/28/19 10:40 Dose: 500 mg A/P UTI Gram Negative Bacteremia Severe Sepsis Acute Kidney Injury Lactic Acidosis resolved Anemia/Thrombocytopenia COPD Chronic Hypoxic Respiratory Failure Obstructive Sleep Apnea r/o Gastric Outlet Obstruction - continue antibiotics - monitor urine output, creatinine - inhaled bronchodilators - taper steroids down to home dose - O2 to keep SpO2 >90% - CPAP at night - monitor CBC - DVT prophylaxis
--- NOTE | 2019-04-28 11:21 | PN ---
Progress Note, Physician History of Present Illness: Patient seen and examined at bedside. States since starting chopped diet she feels full and today got a little nauseous but was able to tolerate diet without vomiting. Feeling well at this point. Endorses shortness of breath. Endorses 2 episodes of diarrhea. Denies fever chills chest pain visual changes or bleeding. - Current Medication List Current Medications: Active Medications Albuterol Sulfate (Ventolin 0.083% Nebulizer Soln -) 1 amp NEB Q4H PRN PRN Reason: SHORT OF BREATH/WHEEZING Last Admin: 04/27/19 02:56 Dose: 1 amp Albuterol/Ipratropium (Duoneb -) 1 amp NEB RQID [facility] Last Admin: 04/28/19 08:37 Dose: 1 amp Calcium Carbonate/Cholecalciferol (Os-Mikie 500+D -) 2 tab PO DAILY [facility] Last Admin: 04/28/19 10:40 Dose: 2 tab Clonazepam (Klonopin -) 1 mg PO DAILY [facility] Last Admin: 04/28/19 10:40 Dose: 1 mg Guaifenesin (Robitussin Dm -) 10 ml PO Q6H PRN PRN Reason: COUGH Last Admin: 04/27/19 18:34 Dose: 10 ml Ertapenem 1 gm/ Sodium (Chloride) 50 mls @ 100 mls/hr IVPB DAILY [facility] Last Admin: 04/28/19 10:39 Dose: 100 mls/hr Lactobacillus Acidophilus (Bacid -) 1 tab PO DAILY [facility] Last Admin: 04/28/19 10:41 Dose: 1 tab Ondansetron HCl (Zofran Injection) 4 mg IVPUSH Q6H PRN PRN Reason: NAUSEA AND/OR VOMITING Pantoprazole Sodium (Protonix -) 40 mg PO DAILY [facility] Last Admin: 04/28/19 10:41 Dose: 40 mg Prednisone (Deltasone -) 10 mg PO DAILY [facility] Last Admin: 04/28/19 10:41 Dose: 10 mg Sodium Chloride ([place] Nasal [place] -) 2 spray NS TID PRN PRN Reason: NASAL CONGESTION Last Admin: 04/26/19 11:39 Dose: 2 sprays Valacyclovir HCl (Valtrex -) 500 mg PO BID [facility] Last Admin: 04/28/19 10:40 Dose: 500 mg - Objective Vital Signs: Vital Signs Temperature 98.2 F 04/28/19 06:00 Pulse Rate 100 H 04/28/19 06:00 Respiratory Rate 20 04/28/19 06:00 Blood Pressure 118/78 04/28/19 06:00 O2 Sat by Pulse Oximetry (%) 96 04/28/19 00:10 Constitutional: Yes: Well Nourished, No Distress, Calm Eyes: Yes: Other (conjunctival apllor) Neck: Yes: Supple Cardiovascular: Yes: Tachycardia Respiratory: Yes: Diminished Gastrointestinal: Yes: Soft. No: Distention, Tenderness, Tenderness, Epigastrium, Tenderness, Rebound Edema: Yes Edema: LLE: Trace, RLE: Trace Neurological: Yes: Alert Psychiatric: Yes: Alert, Oriented Labs: CBC, BMP 04/27/19 07:04 04/28/19 09:05 INR, PTT INR 1.04 (0.83-1.09) 04/24/19 06:08 Impression/Plan Impression/Plan: 73 y/o F with PMH COPD on 2L 02, JANETTE on CPAP, h/o partial lung resection secondary to carcinoid, GERD, prior hx MRSA who presented with hypotension, coffee ground emesis and [facility]. COPD on 2L 02/JANETTE continue CPAP use continue duonebs PRN Pulm consult continue prednisone-ho,me dose is alternating 5 and 10mg po daily Coffee ground emesis no further episodes hold asa GI f/u for EGD date and time PPI trend CBC continue dysphagia chopped diet gram negative bacteremia with ESBL continue ertapenem per ID. today is day 5/10 Afebrile oral HSV continue valtrex anxiety continue klonopin 1mg qd PPX DVT: SCDs GI: PPI Discussed case and updated the patient's home rn case management Visit type - Emergency Visit Emergency Visit: Yes ED Registration Date: 04/21/19 Care time: The patient presented to the Emergency Department on the above date and was hospitalized for further evaluation of their emergent condition. - New Patient This patient is new to me today: Yes Date on this admission: 04/28/19 - Critical Care Critical Care patient: No
--- NOTE | 2019-04-28 13:54 | PN ---
Progress Note (short form) - Note Progress Note: s: no chest pain, palps, dizziness, dyspnea Current Medications Albuterol Sulfate (Ventolin 0.083% Nebulizer Soln -) 1 amp NEB Q4H PRN PRN Reason: SHORT OF BREATH/WHEEZING Last Admin: 04/27/19 02:56 Dose: 1 amp Albuterol/Ipratropium (Duoneb -) 1 amp NEB RQID [facility] Last Admin: 04/28/19 11:37 Dose: 1 amp Calcium Carbonate/Cholecalciferol (Os-Mikie 500+D -) 2 tab PO DAILY [facility] Last Admin: 04/28/19 10:40 Dose: 2 tab Clonazepam (Klonopin -) 1 mg PO DAILY [facility] Last Admin: 04/28/19 10:40 Dose: 1 mg Guaifenesin (Robitussin Dm -) 10 ml PO Q6H PRN PRN Reason: COUGH Last Admin: 04/27/19 18:34 Dose: 10 ml Ertapenem 1 gm/ Sodium (Chloride) 50 mls @ 100 mls/hr IVPB DAILY [facility] Last Admin: 04/28/19 10:39 Dose: 100 mls/hr Lactobacillus Acidophilus (Bacid -) 1 tab PO DAILY [facility] Last Admin: 04/28/19 10:41 Dose: 1 tab Ondansetron HCl (Zofran Injection) 4 mg IVPUSH Q6H PRN PRN Reason: NAUSEA AND/OR VOMITING Pantoprazole Sodium (Protonix -) 40 mg PO DAILY [facility] Last Admin: 04/28/19 10:41 Dose: 40 mg Prednisone (Deltasone -) 10 mg PO DAILY [facility] Last Admin: 04/28/19 10:41 Dose: 10 mg Sodium Chloride ([place] Nasal [place] -) 2 spray NS TID PRN PRN Reason: NASAL CONGESTION Last Admin: 04/26/19 11:39 Dose: 2 sprays Valacyclovir HCl (Valtrex -) 500 mg PO BID [facility] Last Admin: 04/28/19 10:40 Dose: 500 mg Vital Signs Period Temp Pulse Resp BP Sys/Cárdenas Pulse Ox Last 24 Hr 98 F-98.8 F 88-114 20-220 115-136/63-84 96 Constitutional: Yes: No Distress Cardiovascular: Yes: Regular Rate and Rhythm, Tachycardia, Other (no JVD) Respiratory: Yes: Other (severely reduced breath sounds bilaterally- chronic. C/ W COPD. No active wheezing.) Gastrointestinal: Yes: Soft Edema: No Neurological: Yes: Alert, Oriented no jaundice, diaphoresis not agitated Assessment/Plan 73 yo female with HTN, HPL and hiatal hernia here with early sepsis-like clinical picture secondary to UTI, gram negative sepsis and ARF in setting of acute sepsis. Sepsis, gram neg bacteremia, gram neg UTI: -abx per ID -cont IVF Tachycardia: Sinus occurs in setting of infection, anemia. Physiologic response. -Patient has no obstructive CAD on cath done in 02/2019, trop neg here -Tachycardia is responsive to underlying sepsis - cont abx per primary, ID Pericardial effusion: - Chronic since at least April 2018, negative on PET scan which she had done for lung nodule. -This effusion has been small to moderate in size since 2018 and stable. -Prior echos have had equivocal findings of tamponade, as does current study but clinically she has not shown any instability or signs/ symptoms of tamponade. -no JVD, hemodynamically stable, tachy likely sec to sepsis/anxiety/anemia -Current study with similar size chronic effusion, and with indeterminate/ equivocal features for tamponade similar to study in January 2019. -Because this effusion is chronic and unchanged, absence of clear clinical tamponade and thrombocytopenia, advise close clinical and echo follow up -Would reserve drainage procedure if effusion enlarges or if clinical changes indicative more clearly indicative of tamponade physiology. [facility]: -sec to sepsis -renal fxn improving with IVF, supportive care COPD: -per pulm, hospitalist Anemia/guaiac + stool: -plan per PMD and GI
--- NOTE | 2019-04-28 16:31 | PN ---
Progress Note (short form) - Note Progress Note: 1. [facility] 2. hyperkalemia 3. sepsis 4. copd 5. anxiety 6. hypotension Current Medications Albuterol Sulfate (Ventolin 0.083% Nebulizer Soln -) 1 amp NEB Q4H PRN PRN Reason: SHORT OF BREATH/WHEEZING Last Admin: 04/27/19 02:56 Dose: 1 amp Albuterol/Ipratropium (Duoneb -) 1 amp NEB RQID [facility] Last Admin: 04/28/19 15:30 Dose: 1 amp Calcium Carbonate/Cholecalciferol (Os-Mikie 500+D -) 2 tab PO DAILY [facility] Last Admin: 04/28/19 10:40 Dose: 2 tab Clonazepam (Klonopin -) 1 mg PO DAILY [facility] Last Admin: 04/28/19 10:40 Dose: 1 mg Guaifenesin (Robitussin Dm -) 10 ml PO Q6H PRN PRN Reason: COUGH Last Admin: 04/27/19 18:34 Dose: 10 ml Ertapenem 1 gm/ Sodium (Chloride) 50 mls @ 100 mls/hr IVPB DAILY [facility] Last Admin: 04/28/19 10:39 Dose: 100 mls/hr Lactobacillus Acidophilus (Bacid -) 1 tab PO DAILY [facility] Last Admin: 04/28/19 10:41 Dose: 1 tab Ondansetron HCl (Zofran Injection) 4 mg IVPUSH Q6H PRN PRN Reason: NAUSEA AND/OR VOMITING Pantoprazole Sodium (Protonix -) 40 mg PO DAILY [facility] Last Admin: 04/28/19 10:41 Dose: 40 mg Prednisone (Deltasone -) 10 mg PO DAILY [facility] Last Admin: 04/28/19 10:41 Dose: 10 mg Sodium Chloride ([place] Nasal [place] -) 2 spray NS TID PRN PRN Reason: NASAL CONGESTION Last Admin: 04/26/19 11:39 Dose: 2 sprays Valacyclovir HCl (Valtrex -) 500 mg PO BID [facility] Last Admin: 04/28/19 10:40 Dose: 500 mg Last Vital Signs Temp Pulse Resp BP Pulse Ox 98.8 F 107 H 18 130/60 96 04/28/19 14:53 04/28/19 14:53 04/28/19 14:53 04/28/19 14:53 04/28/19 00:10 CBC, BMP 04/27/19 07:04 04/28/19 09:05 IMP-anemia s/p [facility] s/p IVF labs stable Plan - replace potassium - pt tolerating diet - can hold fluids for now - calcium supplements - encourage po intake - repeat labs in am
[2019-04-29] MEDS: ALBUTEROL SO4 0.083% IH SOL 2.5 MG/3 ML VIAL.NEB. NEB PRN (04:50)
[2019-04-29] MEDS: ALBUTEROL SO4 2.5/IPRATROPIUM 0.5 INH SOL 3 ML VIAL.NEB. NEB SCH ×4 (08:05→20:45)
[2019-04-29] MEDS: LACTOBACILLUS ACIDOPHILUS 1 TABLET PO SCH (10:31)
[2019-04-29] MEDS: CALCIUM 500MG/VIT-D 200 UNITS COMBO TABLET (FP) PO SCH (10:31)
[2019-04-29] MEDS: PANTOPRAZOLE 40 MG TABLET (FP) PO SCH (10:31)
[2019-04-29] MEDS: valACYclovir HCL 500 MG TABLET (FP) PO SCH ×2 (10:31→21:30)
[2019-04-29] MEDS: ERTAPENEM SODIUM 1 GM in SODIUM CHLORIDE 50 ML IVPB SCH (10:32)
[2019-04-29] MEDS: clonazePAM 0.5 MG TABLET PO SCH (10:32)
[2019-04-29] MEDS: predniSONE 5 MG TABLET (UD) PO SCH (10:32)
--- NOTE | 2019-04-29 11:55 | PN ---
Progress Note (short form) - Note Progress Note: PULMONARY Breathing the same, still with cough and chest congestion. No fevers recorded. Vital Signs Period Temp Pulse Resp BP Sys/Cárdenas Pulse Ox Last 24 Hr 97.6 F-99 F 88-107 18- 108-135/54-97 96-96 Gen: NAD at rest Heart: RRR Lung: decreased breath sounds at the bases Abd: soft, nontender Ext: no edema CBC, BMP 04/27/19 07:04 04/28/19 09:05 Active Medications Albuterol Sulfate (Ventolin 0.083% Nebulizer Soln -) 1 amp NEB Q4H PRN PRN Reason: SHORT OF BREATH/WHEEZING Last Admin: 04/29/19 04:50 Dose: 1 amp Albuterol/Ipratropium (Duoneb -) 1 amp NEB RQID [facility] Last Admin: 04/29/19 08:05 Dose: 1 amp Calcium Carbonate/Cholecalciferol (Os-Mikie 500+D -) 2 tab PO DAILY [facility] Last Admin: 04/29/19 10:31 Dose: 2 tab Clonazepam (Klonopin -) 1 mg PO DAILY [facility] Last Admin: 04/29/19 10:32 Dose: 1 mg Guaifenesin (Robitussin Dm -) 10 ml PO Q6H PRN PRN Reason: COUGH Last Admin: 04/27/19 18:34 Dose: 10 ml Ertapenem 1 gm/ Sodium (Chloride) 50 mls @ 100 mls/hr IVPB DAILY [facility] Last Admin: 04/29/19 10:32 Dose: 100 mls/hr Lactobacillus Acidophilus (Bacid -) 1 tab PO DAILY [facility] Last Admin: 04/29/19 10:31 Dose: 1 tab Ondansetron HCl (Zofran Injection) 4 mg IVPUSH Q6H PRN PRN Reason: NAUSEA AND/OR VOMITING Pantoprazole Sodium (Protonix -) 40 mg PO DAILY [facility] Last Admin: 04/29/19 10:31 Dose: 40 mg Prednisone (Deltasone -) 10 mg PO DAILY [facility] Last Admin: 04/29/19 10:32 Dose: 10 mg Sodium Chloride ([place] Nasal [place] -) 2 spray NS TID PRN PRN Reason: NASAL CONGESTION Last Admin: 04/26/19 11:39 Dose: 2 sprays Valacyclovir HCl (Valtrex -) 500 mg PO BID [facility] Last Admin: 04/29/19 10:31 Dose: 500 mg A/P UTI Gram Negative Bacteremia Severe Sepsis Acute Kidney Injury Lactic Acidosis resolved Anemia/Thrombocytopenia COPD Chronic Hypoxic Respiratory Failure Obstructive Sleep Apnea r/o Gastric Outlet Obstruction - continue antibiotics - monitor urine output, creatinine - inhaled bronchodilators - will place back on IV medrol for 24-48hrs then back to baseline prednisone - O2 to keep SpO2 >90% - CPAP at night - monitor CBC - DVT prophylaxis
--- NOTE | 2019-04-29 12:13 | PN ---
Progress Note (short form) - Note Progress Note: s: no chest pain, palps, dizziness, dyspnea. feels congested Current Medications Albuterol Sulfate (Ventolin 0.083% Nebulizer Soln -) 1 amp NEB Q4H PRN PRN Reason: SHORT OF BREATH/WHEEZING Last Admin: 04/29/19 04:50 Dose: 1 amp Albuterol/Ipratropium (Duoneb -) 1 amp NEB RQID [facility] Last Admin: 04/29/19 08:05 Dose: 1 amp Calcium Carbonate/Cholecalciferol (Os-Mikie 500+D -) 2 tab PO DAILY [facility] Last Admin: 04/29/19 10:31 Dose: 2 tab Clonazepam (Klonopin -) 1 mg PO DAILY [facility] Last Admin: 04/29/19 10:32 Dose: 1 mg Guaifenesin (Robitussin Dm -) 10 ml PO Q6H PRN PRN Reason: COUGH Last Admin: 04/27/19 18:34 Dose: 10 ml Ertapenem 1 gm/ Sodium (Chloride) 50 mls @ 100 mls/hr IVPB DAILY [facility] Last Admin: 04/29/19 10:32 Dose: 100 mls/hr Lactobacillus Acidophilus (Bacid -) 1 tab PO DAILY [facility] Last Admin: 04/29/19 10:31 Dose: 1 tab Methylprednisolone Sodium Succinate (Solu-Medrol -) 40 mg IVPUSH Q8H-IV [facility] Ondansetron HCl (Zofran Injection) 4 mg IVPUSH Q6H PRN PRN Reason: NAUSEA AND/OR VOMITING Pantoprazole Sodium (Protonix -) 40 mg PO DAILY [facility] Last Admin: 04/29/19 10:31 Dose: 40 mg Sodium Chloride ([place] Nasal [place] -) 2 spray NS TID PRN PRN Reason: NASAL CONGESTION Last Admin: 04/26/19 11:39 Dose: 2 sprays Valacyclovir HCl (Valtrex -) 500 mg PO BID [facility] Last Admin: 04/29/19 10:31 Dose: 500 mg Vital Signs Period Temp Pulse Resp BP Sys/Cárdenas Pulse Ox Last 24 Hr 97.6 F-99 F 88-107 18-22 108-135/54-97 96-96 Constitutional: Yes: No Distress Cardiovascular: Yes: Regular Rate and Rhythm, Tachycardia, Other (no JVD) Respiratory: Yes: Other (severely reduced breath sounds bilaterally- chronic. C/ W COPD. No active wheezing.) Gastrointestinal: Yes: Soft Edema: No Neurological: Yes: Alert, Oriented no jaundice, diaphoresis not agitated Assessment/Plan 73 yo female with HTN, HPL and hiatal hernia here with early sepsis-like clinical picture secondary to UTI, gram negative sepsis and ARF in setting of acute sepsis. Sepsis, gram neg bacteremia, gram neg UTI: -abx per ID -cont IVF Tachycardia: Sinus tach in setting of infection, anemia. Physiologic response. -Patient has no obstructive CAD on cath done in 02/2019, trop neg here -Tachycardia is responsive to underlying sepsis - cont abx per primary, ID Pericardial effusion: - Chronic since at least April 2018, negative on PET scan which she had done for lung nodule. -This effusion has been small to moderate in size since 2018 and stable. -Prior echos have had equivocal findings of tamponade, as does current study but clinically she has not shown any instability or signs/ symptoms of tamponade. -no JVD, hemodynamically stable, tachy likely sec to sepsis/anxiety/anemia -Current study with similar size chronic effusion, and with indeterminate/ equivocal features for tamponade similar to study in January 2019. -Because this effusion is chronic and unchanged, absence of clear clinical tamponade and thrombocytopenia, advise close clinical and echo follow up -Would reserve drainage procedure if effusion enlarges or if clinical changes indicative more clearly indicative of tamponade physiology. [facility]: -sec to sepsis -renal fxn improving with IVF, supportive care COPD: -per pulm, hospitalist Anemia/guaiac + stool: -plan per PMD and GI
[2019-04-29] MEDS: methylPREDNISolone NA SUCC 40 MG/1 ML VIAL IVPUSH SCH ×2 (13:08→18:54)
--- NOTE | 2019-04-29 13:46 | PN ---
Progress Note, Physician History of Present Illness: Patient seen and examined at bedside. Tolerating chopped diet well without vomiting although she does not like the food. Feeling well at this point. Endorses shortness of breath and congestion but is comfortable. No BM today. Denies fever chills chest pain visual changes or bleeding. Platelets are going up. - Current Medication List Current Medications: Active Medications Albuterol Sulfate (Ventolin 0.083% Nebulizer Soln -) 1 amp NEB Q4H PRN PRN Reason: SHORT OF BREATH/WHEEZING Last Admin: 04/29/19 04:50 Dose: 1 amp Albuterol/Ipratropium (Duoneb -) 1 amp NEB RQID [facility] Last Admin: 04/29/19 11:50 Dose: 1 amp Calcium Carbonate/Cholecalciferol (Os-Mikie 500+D -) 2 tab PO DAILY [facility] Last Admin: 04/29/19 10:31 Dose: 2 tab Clonazepam (Klonopin -) 1 mg PO DAILY [facility] Last Admin: 04/29/19 10:32 Dose: 1 mg Guaifenesin (Robitussin Dm -) 10 ml PO Q6H PRN PRN Reason: COUGH Last Admin: 04/27/19 18:34 Dose: 10 ml Ertapenem 1 gm/ Sodium (Chloride) 50 mls @ 100 mls/hr IVPB DAILY [facility] Last Admin: 04/29/19 10:32 Dose: 100 mls/hr Lactobacillus Acidophilus (Bacid -) 1 tab PO DAILY [facility] Last Admin: 04/29/19 10:31 Dose: 1 tab Methylprednisolone Sodium Succinate (Solu-Medrol -) 40 mg IVPUSH Q8H-IV [facility] Last Admin: 04/29/19 13:08 Dose: 40 mg Ondansetron HCl (Zofran Injection) 4 mg IVPUSH Q6H PRN PRN Reason: NAUSEA AND/OR VOMITING Pantoprazole Sodium (Protonix -) 40 mg PO DAILY [facility] Last Admin: 04/29/19 10:31 Dose: 40 mg Sodium Chloride ([place] Nasal [place] -) 2 spray NS TID PRN PRN Reason: NASAL CONGESTION Last Admin: 04/26/19 11:39 Dose: 2 sprays Valacyclovir HCl (Valtrex -) 500 mg PO BID [facility] Last Admin: 04/29/19 10:31 Dose: 500 mg - Objective Vital Signs: Vital Signs Temperature 98.8 F 04/29/19 10:45 Pulse Rate 106 H 04/29/19 10:45 Respiratory Rate 18 04/29/19 10:45 Blood Pressure 108/54 L 04/29/19 10:45 O2 Sat by Pulse Oximetry (%) 97 04/29/19 12:16 Constitutional: Yes: Well Nourished, No Distress, Calm Eyes: Yes: Other (conjunctival apllor) Neck: Yes: Supple Cardiovascular: Yes: Tachycardia Respiratory: Yes: Diminished bilaterally otherwise clear Gastrointestinal: Yes: Soft. 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 COPD on 2L 02/JANETTE continue CPAP use continue duonebs PRN Pulm consult hold prednisone-home dose is alternating 5 and 10mg po daily Give medrol for 24-48 hours IV per pulm Coffee ground emesis no further episodes hold asa GI f/u for EGD date and time PPI trend CBC continue dysphagia chopped diet Thrombocytopenia improving gram negative bacteremia with ESBL continue ertapenem per ID. today is day 6 Afebrile oral HSV continue valtrex anxiety continue klonopin 1mg qd PPX DVT: SCDs GI: PPI Visit type - Emergency Visit Emergency Visit: Yes ED Registration Date: 04/21/19 Care time: The patient presented to the Emergency Department on the above date and was hospitalized for further evaluation of their emergent condition. - New Patient This patient is new to me today: No - Critical Care Critical Care patient: No
--- NOTE | 2019-04-29 22:28 | PN ---
Progress Note (short form) - Note Progress Note: 1. [facility] 2. hyperkalemia 3. sepsis 4. copd 5. anxiety 6. hypotension Active Medications Albuterol Sulfate (Ventolin 0.083% Nebulizer Soln -) 1 amp NEB Q4H PRN PRN Reason: SHORT OF BREATH/WHEEZING Last Admin: 04/29/19 04:50 Dose: 1 amp Albuterol/Ipratropium (Duoneb -) 1 amp NEB RQID [facility] Last Admin: 04/29/19 20:45 Dose: 1 amp Calcium Carbonate/Cholecalciferol (Os-Mikie 500+D -) 2 tab PO DAILY [facility] Last Admin: 04/29/19 10:31 Dose: 2 tab Clonazepam (Klonopin -) 1 mg PO DAILY [facility] Last Admin: 04/29/19 10:32 Dose: 1 mg Guaifenesin (Robitussin Dm -) 10 ml PO Q6H PRN PRN Reason: COUGH Last Admin: 04/27/19 18:34 Dose: 10 ml Ertapenem 1 gm/ Sodium (Chloride) 50 mls @ 100 mls/hr IVPB DAILY [facility] Last Admin: 04/29/19 10:32 Dose: 100 mls/hr Lactobacillus Acidophilus (Bacid -) 1 tab PO DAILY [facility] Last Admin: 04/29/19 10:31 Dose: 1 tab Methylprednisolone Sodium Succinate (Solu-Medrol -) 40 mg IVPUSH Q8H-IV [facility] Last Admin: 04/29/19 18:54 Dose: 40 mg Ondansetron HCl (Zofran Injection) 4 mg IVPUSH Q6H PRN PRN Reason: NAUSEA AND/OR VOMITING Pantoprazole Sodium (Protonix -) 40 mg PO DAILY [facility] Last Admin: 04/29/19 10:31 Dose: 40 mg Sodium Chloride ([place] Nasal [place] -) 2 spray NS TID PRN PRN Reason: NASAL CONGESTION Last Admin: 04/26/19 11:39 Dose: 2 sprays Valacyclovir HCl (Valtrex -) 500 mg PO BID [facility] Last Admin: 04/29/19 21:30 Dose: 500 mg Last Vital Signs Temp Pulse Resp BP Pulse Ox 98.7 F 107 H 24 H 160/76 97 04/29/19 19:53 04/29/19 19:53 04/29/19 19:53 04/29/19 19:53 04/29/19 12:16 Lungs clear Heart reg Abd soft ext min CBC, BMP 04/27/19 07:04 04/28/19 09:05 IMP-anemia s/p [facility] s/p IVF labs stable Plan - replace potassium - pt tolerating diet - can hold fluids for now - calcium supplements - encourage po intake - repeat labs in am
[2019-04-30] MEDS: methylPREDNISolone NA SUCC 40 MG/1 ML VIAL IVPUSH SCH ×3 (01:19→17:49)
[2019-04-30] MEDS: ALBUTEROL SO4 2.5/IPRATROPIUM 0.5 INH SOL 3 ML VIAL.NEB. NEB SCH ×4 (07:20→20:09)
[2019-04-30 08:27] LABS: BASO % 0.1 % (0-2.0); HEMATOCRIT 26.8 % (32.4-45.2); HEMOGLOBIN 9.1 GM/dL (10.7-15.3); LYMPH % 7.1 % (8-40); MCH 30.8 pg (25.7-33.7); MEAN CELL VOLUME 90.7 fl (80-96); MEAN PLT VOLUME 8.1 fl (7.5-11.1); NEUT % 90.8 % (42.8-82.8); PLATELET COUNT 232 K/MM3 (134-434); RBC 2.96 M/mm3 (3.60-5.2); RDW 13.9 % (11.6-15.6); WHITE BLOOD COUNT 7.8 K/mm3 (4.0-10.0)
[2019-04-30 09:00] LABS: BLOOD UREA NITROGEN 17.2 mg/dL (7-18); CALCIUM 9.1 mg/dL (8.5-10.1); POTASSIUM 5.4 mmol/L (3.5-5.1)
[2019-04-30] MEDS ORDERED: PT OWN MED DRAWER 7, Y5N ONE ×4 (09:24→16:02)
--- NOTE | 2019-04-30 09:28 | PN ---
Progress Note (short form) - Note Progress Note: Still with congested cough and thick sputum production. No fevers recorded. No acute events overnight. Intake & Output 04/27/19 04/28/19 04/29/19 04/30/19 23:59 23:59 23:59 23:59 Intake Total 916 545 5501 Output Total 900 Balance -504 667 2467 Weight 150 lb 6.4 oz 160 lb 3 oz 161 lb 4 oz Last Vital Signs Temp Pulse Resp BP Pulse Ox 97.6 F 94 H 20 148/95 97 04/30/19 06:00 04/30/19 06:00 04/30/19 06:00 04/30/19 06:00 04/30/19 08:05 Active Medications Albuterol Sulfate (Ventolin 0.083% Nebulizer Soln -) 1 amp NEB Q4H PRN PRN Reason: SHORT OF BREATH/WHEEZING Last Admin: 04/29/19 04:50 Dose: 1 amp Albuterol Sulfate (Ventolin 0.042trength) -) 1 amp NEB ONCE ONE Stop: 04/30/19 09:31 Albuterol/Ipratropium (Duoneb -) 1 amp NEB RQID [facility] Last Admin: 04/30/19 07:20 Dose: 1 amp Calcium Carbonate/Cholecalciferol (Os-Mikie 500+D -) 2 tab PO DAILY [facility] Last Admin: 04/29/19 10:31 Dose: 2 tab Clonazepam (Klonopin -) 1 mg PO DAILY [facility] Last Admin: 04/29/19 10:32 Dose: 1 mg Guaifenesin (Robitussin Dm -) 10 ml PO Q6H PRN PRN Reason: COUGH Last Admin: 04/27/19 18:34 Dose: 10 ml Ertapenem 1 gm/ Sodium (Chloride) 50 mls @ 100 mls/hr IVPB DAILY [facility] Last Admin: 04/29/19 10:32 Dose: 100 mls/hr Lactobacillus Acidophilus (Bacid -) 1 tab PO DAILY [facility] Last Admin: 04/29/19 10:31 Dose: 1 tab Methylprednisolone Sodium Succinate (Solu-Medrol -) 40 mg IVPUSH Q8H-IV [facility] Last Admin: 04/30/19 01:19 Dose: 40 mg Ondansetron HCl (Zofran Injection) 4 mg IVPUSH Q6H PRN PRN Reason: NAUSEA AND/OR VOMITING Pantoprazole Sodium (Protonix -) 40 mg PO DAILY [facility] Last Admin: 04/29/19 10:31 Dose: 40 mg Sodium Chloride ([place] Nasal [place] -) 2 spray NS TID PRN PRN Reason: NASAL CONGESTION Last Admin: 04/26/19 11:39 Dose: 2 sprays Sodium Polystyrene Sulfonate (Kayexalate -) 15 gm PO ONCE ONE Stop: 04/30/19 09:05 Valacyclovir HCl (Valtrex -) 500 mg PO BID [facility] Last Admin: 04/29/19 21:30 Dose: 500 mg Gen: Congested cough, NAD at rest Heart: RRR Lung: Bilateral coarse rhonchi, (+) mild scattered expiratory wheeze Abd: soft, nontender Ext: no edema Laboratory Results - last 24 hr 04/30/19 04/30/19 07:45 07:45 WBC 7.8 RBC 2.96 L Hgb 9.1 L Hct 26.8 L MCV 90.7 MCH 30.8 MCHC 34.0 RDW 13.9 Plt Count 232 D MPV 8.1 Absolute Neuts (auto) 7.1 Neutrophils % 90.8 H Lymphocytes % 7.1 L D Monocytes % 2.0 L D Eosinophils % 0.0 D Basophils % 0.1 Nucleated RBC % 0 Sodium 139 Potassium 5.4 H Chloride 103 Carbon Dioxide 32 Anion Gap 3 L BUN 17.2 Creatinine 1.0 Est GFR (CKD-EPI)AfAm 64.73 Est GFR (CKD-EPI)NonAf 55.85 Random Glucose 140 H Calcium 9.1 A/P UTI Gram Negative Bacteremia Severe Sepsis Acute Kidney Injury Lactic Acidosis resolved Anemia/Thrombocytopenia COPD Chronic Hypoxic Respiratory Failure Obstructive Sleep Apnea r/o Gastric Outlet Obstruction - continue antibiotics - monitor urine output, creatinine - inhaled bronchodilators - Continue IV Medrol - O2 to keep SpO2 >90% - CPAP at night - monitor CBC - DVT prophylaxis Dr Ruano
[2019-04-30] MEDS ORDERED: ALBUTEROL SO4 0.042% IH SOL 1.25 MG/3 ML VIAL.NEB NEB ONE (09:30)
[2019-04-30] MEDS ORDERED: SODIUM POLYSTYRENE SULFONATE 15 GM/60 ML BOTTLE PO ONE (09:30)
[2019-04-30] MEDS: ERTAPENEM SODIUM 1 GM in SODIUM CHLORIDE 50 ML IVPB SCH (09:41)
[2019-04-30] MEDS: valACYclovir HCL 500 MG TABLET (FP) PO SCH ×2 (09:41→22:02)
[2019-04-30] MEDS: CALCIUM 500MG/VIT-D 200 UNITS COMBO TABLET (FP) PO SCH (09:41)
[2019-04-30] MEDS: PANTOPRAZOLE 40 MG TABLET (FP) PO SCH (09:41)
[2019-04-30] MEDS: LACTOBACILLUS ACIDOPHILUS 1 TABLET PO SCH (09:41)
[2019-04-30] MEDS: clonazePAM 0.5 MG TABLET PO SCH (09:41)
--- NOTE | 2019-04-30 09:43 | PN ---
Progress Note (short form) - Note Progress Note: Hospitalist Medicine Still with deep, productive cough and on IV medrol. Worried about "going under" for potential EGD. Will d/w GI Vitals 04/30/19 04/30/19 06:00 08:05 Temperature 97.6 F Pulse Rate 94 H Respiratory 20 Rate Blood Pressure 148/95 O2 Sat by Pulse 97 Oximetry (%) Physical Exam general: resting in bed. pleasant. in NAD +coughing HEENT: NCAT, PERRLA, dry cracked lips. ulcerated pulm: decreased breath sounds throughout. no accessory m usage cardio: +reg rate.S1, S2, RRR. no r/m/g abdomen: soft, no guarding, or rigidity LE: no edema. 2+ pulses neuro: algorithm developer 2-12 grossly intact Laboratory Tests 04/30/19 04/30/19 07:45 07:45 WBC 7.8 Hgb 9.1 L Hct 26.8 L Plt Count 232 D Sodium 139 Potassium 5.4 H Chloride 103 Carbon Dioxide 32 BUN 17.2 Creatinine 1.0 Random Glucose 140 H Microbiology 04/23/19 10:30 Stool Salmonella/Shigella Culture - Final 04/23/19 10:30 Stool Escherichia coli 0157 Culture - Final NO GROWTH OF SALMONELLA OR SHIGELLA SPECIES OBTAINED NO GROWTH OF CAMPYLOBACTER SPECIES OBTAINED NO GROWTH OF YERSINIA SPECIES OBTAINED NO GROWTH OF VIBRIO SPECIES OBTAINED NO GROWTH OF E COLI 0157 OBTAINED 04/23/19 10:30 Stool Gram Stain - Final 04/22/19 18:00 Nares - Mrsa Screen - Right MRSA Screen - Final NO MRSA ISOLATED 04/22/19 18:00 Nares - Mrsa Screen - Left MRSA Screen - Final NO MRSA ISOLATED 04/22/19 10:30 Stool Clostridioides difficile Antigen - Final 04/22/19 10:30 Stool Clostridioides difficile Toxin Assay - Final 04/21/19 13:00 Blood - Peripheral Venous Blood Culture - Final Escherichia Coli 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 04/23/19 05:40 Blood - Peripheral Venous Blood Culture - Preliminary NO GROWTH OBTAINED AFTER 96 HOURS, INCUBATION TO CONTINUE FOR 1 DAYS. Assessment/Plan 73 y/o F with PMH COPD on 2L 02, JANETTE on CPAP, h/o partial lung resection - carcinoid, GERD, prior hx MRSA who presented with hypotension, N/V, coffee ground emesis and LUH. #COPD on 2L 02 #CPAP use -c/w duonebs PRN -c/w CPAP -on IV medrol per pulm, as increased congestion/tightness will change to home dose tomorrow: alternating 5 and 10mg every other day -Pulm consulted: Dr. Ruano #N/V/D, coffee ground emesis, possible 2/2 gastric outlet obstruction -c/t monitor H/H; has been stable -asa is held -on protonix 40 mg PO qd -UGI series: reveals esophageal dysmotility with large, sliding hiatal hernia -d/w GI: EGD to occur later in stay -GI: Dr. Meier #Chronic pericardial effusion -since 2018 -no JVD, hemodynamically stable -if develops tamponade then will need drainage #gram (-) sepsis 2/2 UTI -coverage changed to ertapenem (04/25) from tonio. Day 12/13 total. ESBL, PCN/ sulfa allergy -on bacid. -recent cx (-) -isolation precautions: past hx MRSA, now ESBL -ID on board: Dr. Rojas #oral HSV -c/w valtrex #LUH - resolved #anxiety -home klonopin 1mg qd -at baseline per daughter #hyperkalemia -K 5.4 -will give kayexelate, nebs -repeat K this afternoon #F/E/N off IVF continue to follow lytes dysphagia chopped diet #PPX DVT: SCD's #Dispo monitoring on floor, on IV abx plan for EGD once infection improves <China Mayorga - Last Filed: 04/30/19 18:37> - Note Progress Note: Seen and examined; please see resident note for further information. Agree with above as documented aside from as supplemented by myself. Personally verified all gonzalez historical details, PE findings, as well as all labs, imaging, and diagnostics. Discussed at length with resident and indicated consultants. Denies SOB or worsening cough or secretion. Has reservations about the EGD but wants to go forward. No issues with IV abx. Swallow input noted. K slightly high so will change to /2 and repeat PM values and discuss case with nephrology. Appreciate all subspecialty input. MBS with risk of retrograde aspiration sec impaired esoph emptying; continuing chopped diet for now until her cough resolves. Discussed with Mrs. Richardson. 10 sys ROS done and negative aside from HPI NAD, AAO, resting in bed NC AT EOMI PERRLA HR wnl, s1/2+ Lungs CTAB, w/ sym exp NT ND +BS CN2-12 wnl, no fnd Normal mood, appropriate behavior, average insight Trachea midline, no JVD Upper GI series revealing large hiatal hernia and thickened gastric folds MBS reviewed CXR reviewed Admission CT noted Micro noted w/ ESBL+EC. A/P: Patient continues on IV abx and is pending scope; renal, ID, and GI continue to follow. No new acute issues. Problems include: -Sepsis 2/2 ESBL+ E. ColiComplicated UTI (on carbepenem per ID for prolonged course, no issues noted. D/W specialty services. -Recurring UTIs -Pericardial effusion (Per CV this is chronic small to moderate since at least April 2018, negative on PET scan which she had done for lung nodule. Prior echos have had equivocal findings of tamponade, as does current study but clinically she has not shown any instability or signs/ symptoms of tamponade. Currently with no clinical signs of active tamponade but will be vigilant. If clinically indicated will need drainage.) -LUH, Improved (followup with nephrology) -Chronic hypoxic respiratory failure secondary to COPD, JANETTE (Continue BDs, steroids per pulm. C/W O2 w/o changes today) -Acute on chronic anemia (Likely chronic disease with likely acute blood loss anemia component, pending EGD when clinically appropriate per GI services. No acute bleeding noted. Continue to trend CBC. -Hypophosphatemia (Improved, continue to trend) -Hypomagnesemia (Improved, continue to trend) -HSV on valtrex -HyperK (Lokalma, not kayexalate, to be given. 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 If worsens consider psych consult. Consider medication tx with SNRI, etc.) -Multiple allergies (Unrelated groups such as latex, PNC, sulfa, opioids. Should discuss with pt and PCP if needed nonurgently) -Hx HTN (Controlled) <Alexander Turner - Last Filed: 05/01/19 02:52>
[2019-04-30] MEDS ORDERED: SODIUM ZIRCONIUM CYCLOSILICATE (LOKELMA) 5 GM PACKET PO ONE (13:30)
--- NOTE | 2019-04-30 14:39 | PN ---
Progress Note, Physician History of Present Illness: Pt seen and examined at bedside. She is awake and alert. She denies shortness of breath. - Current Medication List Current Medications: Active Medications Albuterol Sulfate (Ventolin 0.083% Nebulizer Soln -) 1 amp NEB Q4H PRN PRN Reason: SHORT OF BREATH/WHEEZING Last Admin: 04/29/19 04:50 Dose: 1 amp Albuterol/Ipratropium (Duoneb -) 1 amp NEB RQID [facility] Last Admin: 04/30/19 11:39 Dose: 1 amp Calcium Carbonate/Cholecalciferol (Os-Mikie 500+D -) 2 tab PO DAILY [facility] Last Admin: 04/30/19 09:41 Dose: 2 tab Clonazepam (Klonopin -) 1 mg PO DAILY [facility] Last Admin: 04/30/19 09:41 Dose: 1 mg Guaifenesin (Robitussin Dm -) 10 ml PO Q6H PRN PRN Reason: COUGH Last Admin: 04/27/19 18:34 Dose: 10 ml Ertapenem 1 gm/ Sodium (Chloride) 50 mls @ 100 mls/hr IVPB DAILY [facility] Last Admin: 04/30/19 09:41 Dose: 100 mls/hr Lactobacillus Acidophilus (Bacid -) 1 tab PO DAILY [facility] Last Admin: 04/30/19 09:41 Dose: 1 tab Methylprednisolone Sodium Succinate (Solu-Medrol -) 40 mg IVPUSH Q8H-IV [facility] Last Admin: 04/30/19 09:41 Dose: 40 mg Ondansetron HCl (Zofran Injection) 4 mg IVPUSH Q6H PRN PRN Reason: NAUSEA AND/OR VOMITING Pantoprazole Sodium (Protonix -) 40 mg PO DAILY [facility] Last Admin: 04/30/19 09:41 Dose: 40 mg Sodium Chloride ([place] Nasal [place] -) 2 spray NS TID PRN PRN Reason: NASAL CONGESTION Last Admin: 04/26/19 11:39 Dose: 2 sprays Valacyclovir HCl (Valtrex -) 500 mg PO BID [facility] Last Admin: 04/30/19 09:41 Dose: 500 mg - Objective Vital Signs: Vital Signs Temperature 98.9 F 04/30/19 14:00 Pulse Rate 109 H 04/30/19 14:00 Respiratory Rate 20 04/30/19 14:00 Blood Pressure 102/56 L 04/30/19 14:00 O2 Sat by Pulse Oximetry (%) 97 04/30/19 09:00 Constitutional: Yes: Calm Eyes: Yes: Conjunctiva Clear HENT: Yes: Atraumatic Cardiovascular: Yes: S1, S2 Respiratory: Yes: CTA Bilaterally Gastrointestinal: Yes: Soft Genitourinary: Yes: WNL Musculoskeletal: Yes: WNL Edema: No Neurological: Yes: Oriented Psychiatric: Yes: Oriented Labs: CBC, BMP 04/30/19 07:45 04/30/19 07:45 INR, PTT INR 1.04 (0.83-1.09) 04/24/19 06:08 Problem List - Problems (1) Acute renal failure Code(s): N17.9 - ACUTE KIDNEY FAILURE, UNSPECIFIED Qualifiers: Acute renal failure type: unspecified Qualified Code(s): N17.9 - Acute kidney failure, unspecified (2) COPD (chronic obstructive pulmonary disease) Code(s): J44.9 - CHRONIC OBSTRUCTIVE PULMONARY DISEASE, UNSPECIFIED (3) Sepsis Code(s): A41.9 - SEPSIS, UNSPECIFIED ORGANISM Qualifiers: Sepsis type: sepsis due to unspecified organism Sepsis acute organ dysfunction status: with acute organ dysfunction Severe sepsis acute organ dysfunction type: acute liver failure Hepatic coma status: without hepatic coma Severe sepsis shock status: without septic shock Qualified Code(s): A41.9 - Sepsis, unspecified organism; R65.20 - Severe sepsis without septic shock; K72.00 - Acute and subacute hepatic failure without coma Assessment/Plan Current Medications Generic Name Dose Route Start Last Admin Trade Name Freq PRN Reason Stop Dose Admin Albuterol Sulfate 1 amp 04/24/19 10:21 04/29/19 04:50 Ventolin 0.083% Nebulizer Soln - NEB 1 amp Q4H PRN Administration SHORT OF BREATH/WHEEZING Albuterol/Ipratropium 1 amp 04/24/19 12:00 04/30/19 11:39 Duoneb - NEB 1 amp RQID [facility] Administration Calcium Carbonate/Cholecalciferol 2 tab 04/25/19 20:00 04/30/19 09:41 Os-Mikie 500+D - PO 2 tab DAILY [facility] Administration Clonazepam 1 mg 04/27/19 20:00 04/30/19 09:41 Klonopin - PO 1 mg DAILY [facility] Administration Guaifenesin 10 ml 04/24/19 09:17 04/27/19 18:34 Robitussin Dm - PO 10 ml Q6H PRN Administration COUGH Ertapenem 1 gm/ Sodium 50 mls @ 100 mls/hr 04/25/19 15:30 04/30/19 09:41 Chloride IVPB 100 mls/hr DAILY [facility] Administration Lactobacillus Acidophilus 1 tab 04/28/19 10:00 04/30/19 09:41 Bacid - PO 1 tab DAILY [facility] Administration Methylprednisolone Sodium Succinate 40 mg 04/29/19 12:00 04/30/19 09:41 Solu-Medrol - IVPUSH 40 mg Q8H-IV [facility] Administration Ondansetron HCl 4 mg 04/24/19 09:17 Zofran Injection IVPUSH Q6H PRN NAUSEA AND/OR VOMITING Pantoprazole Sodium 40 mg 04/27/19 10:00 04/30/19 09:41 Protonix - PO 40 mg DAILY [facility] Administration Sodium Chloride 2 spray 04/26/19 10:09 04/26/19 11:39 [place] Nasal [place] - NS 2 sprays TID PRN Administration NASAL CONGESTION Valacyclovir HCl 500 mg 04/24/19 22:00 04/30/19 09:41 Valtrex - PO 500 mg BID [facility] Administration Impression 1. LUH 2. hyperkalemia 3. sepsis 4. copd 5. anxiety 6. hypotension Plan - follow repeat labs to check potassium - will restart 1/2 ns in the meantime - can stop calcium supplements for now - encourage po intake
[2019-04-30] MEDS ORDERED: SODIUM CHLORIDE 0.45% 1,000 ML IV SCH (14:45)
--- NOTE | 2019-04-30 14:59 | PN ---
Progress Note, RECRUITMENT COORDINATOR - Note Progress Note: Selected Entries 04/28/19 04/28/19 04/28/19 02:00 06:00 10:00 Breakfast 50% Lunch Supper Temperature 98 F 98.2 F 98.8 F 04/28/19 04/28/19 04/28/19 14:53 17:31 19:38 Breakfast Lunch Supper 50% Temperature 98.8 F 99 F 04/28/19 04/28/19 04/29/19 19:51 22:00 01:00 Breakfast Lunch Supper 50% Temperature 98.7 F 97.6 F 04/29/19 04/29/19 04/29/19 06:00 10:00 10:45 Breakfast 75% Lunch Supper Temperature 98.5 F 98.8 F 04/29/19 04/29/19 04/29/19 14:00 16:30 18:00 Breakfast Lunch Supper Temperature 98.4 F 99 F 98.4 F 04/29/19 04/29/19 04/30/19 19:53 22:17 02:00 Breakfast Lunch Supper 100% Temperature 98.7 F 97.7 F 04/30/19 04/30/19 04/30/19 06:00 10:00 14:00 Breakfast 100% Lunch 100% Supper Temperature 97.6 F 97.4 F L 98.9 F Laboratory Tests 04/30/19 07:45 WBC 7.8 On chopped/thin MBS with risk of retrograde aspiration sec impaired esoph emptying Pt has maintained upright posture during and after meals. Reviewed slow intake, several small meals to allow esoph to empty. Will continue chopped for now, until cough improves.
--- NOTE | 2019-04-30 16:24 | PN ---
Progress Note (short form) - Note Progress Note: s: no chest pain, palps, dizziness, dyspnea. complains of stable cough Current Medications Albuterol Sulfate (Ventolin 0.083% Nebulizer Soln -) 1 amp NEB Q4H PRN PRN Reason: SHORT OF BREATH/WHEEZING Last Admin: 04/29/19 04:50 Dose: 1 amp Albuterol/Ipratropium (Duoneb -) 1 amp NEB RQID [facility] Last Admin: 04/30/19 11:39 Dose: 1 amp Calcium Carbonate/Cholecalciferol (Os-Mikie 500+D -) 2 tab PO DAILY [facility] Last Admin: 04/30/19 09:41 Dose: 2 tab Clonazepam (Klonopin -) 1 mg PO DAILY [facility] Last Admin: 04/30/19 09:41 Dose: 1 mg Guaifenesin (Robitussin Dm -) 10 ml PO Q6H PRN PRN Reason: COUGH Last Admin: 04/27/19 18:34 Dose: 10 ml Ertapenem 1 gm/ Sodium (Chloride) 50 mls @ 100 mls/hr IVPB DAILY [facility] Last Admin: 04/30/19 09:41 Dose: 100 mls/hr Sodium Chloride (1/2 Normal Saline) 1,000 mls @ 50 mls/hr IV ASDIR [facility] Stop: 05/01/19 14:40 Last Admin: 04/30/19 15:04 Dose: 50 mls/hr Lactobacillus Acidophilus (Bacid -) 1 tab PO DAILY [facility] Last Admin: 04/30/19 09:41 Dose: 1 tab Methylprednisolone Sodium Succinate (Solu-Medrol -) 40 mg IVPUSH Q8H-IV [facility] Last Admin: 04/30/19 09:41 Dose: 40 mg Ondansetron HCl (Zofran Injection) 4 mg IVPUSH Q6H PRN PRN Reason: NAUSEA AND/OR VOMITING Pantoprazole Sodium (Protonix -) 40 mg PO DAILY [facility] Last Admin: 04/30/19 09:41 Dose: 40 mg Sodium Chloride ([place] Nasal [place] -) 2 spray NS TID PRN PRN Reason: NASAL CONGESTION Last Admin: 04/26/19 11:39 Dose: 2 sprays Valacyclovir HCl (Valtrex -) 500 mg PO BID [facility] Last Admin: 04/30/19 09:41 Dose: 500 mg Vital Signs Period Temp Pulse Resp BP Sys/Cárdenas Pulse Ox Last 24 Hr 97.4 F-99 F 85-115 18-24 102-160/56-95 97-97 Constitutional: Yes: No Distress Cardiovascular: Yes: Regular Rate and Rhythm, Tachycardia, Other (no JVD) Respiratory: Yes: Other (severely reduced breath sounds bilaterally- chronic. C/ W COPD. No active wheezing.) Gastrointestinal: Yes: Soft Edema: No Neurological: Yes: Alert, Oriented no jaundice, diaphoresis not agitated Assessment/Plan 73 yo female with HTN, HPL and hiatal hernia here with early sepsis-like clinical picture secondary to UTI, gram negative sepsis and ARF in setting of acute sepsis. Sepsis, gram neg bacteremia, gram neg UTI: -abx per ID -cont IVF Tachycardia: Sinus tach in setting of infection, anemia. Physiologic response. -Patient has no obstructive CAD on cath done in 02/2019, trop neg here -Tachycardia is responsive to underlying sepsis - cont abx per primary, ID Pericardial effusion: - Chronic since at least April 2018, negative on PET scan which she had done for lung nodule. -This effusion has been small to moderate in size since 2018 and stable. -Prior echos have had equivocal findings of tamponade, as does current study but clinically she has not shown any instability or signs/ symptoms of tamponade. -no JVD, hemodynamically stable, tachy likely sec to sepsis/anxiety/anemia -Current study with similar size chronic effusion, and with indeterminate/ equivocal features for tamponade similar to study in January 2019. -Because this effusion is chronic and unchanged, absence of clear clinical tamponade and thrombocytopenia, advise close clinical and echo follow up -Would reserve drainage procedure if effusion enlarges or if clinical changes indicative more clearly indicative of tamponade physiology. LUH: -sec to sepsis -renal fxn improving with IVF, supportive care COPD: -per pulm, hospitalist Anemia/guaiac + stool: -plan per PMD and GI
[2019-04-30 22:45] LABS: BLOOD UREA NITROGEN 25.1 mg/dL (7-18); CALCIUM 9.1 mg/dL (8.5-10.1); CREATININE 1.2 mg/dL (0.55-1.3); POTASSIUM 4.8 mmol/L (3.5-5.1)
[2019-04-30] MEDS ORDERED: MELATONIN 5 MG TABLETS PO ONE (23:01)
[2019-05-01] MEDS: methylPREDNISolone NA SUCC 40 MG/1 ML VIAL IVPUSH SCH (02:08)
[2019-05-01] MEDS: ALBUTEROL SO4 2.5/IPRATROPIUM 0.5 INH SOL 3 ML VIAL.NEB. NEB SCH ×4 (07:45→20:10)
[2019-05-01 08:55] LABS: BASO % 0.2 % (0-2.0); HEMATOCRIT 25.8 % (32.4-45.2); HEMOGLOBIN 8.6 GM/dL (10.7-15.3); LYMPH % 6.8 % (8-40); MCH 30.6 pg (25.7-33.7); MCHC 33.4 g/dl (32.0-36.0); MEAN CELL VOLUME 91.6 fl (80-96); MEAN PLT VOLUME 8.2 fl (7.5-11.1); MONO % 4.1 % (3.8-10.2); NEUT % 88.9 % (42.8-82.8); PLATELET COUNT 279 K/MM3 (134-434); RBC 2.81 M/mm3 (3.60-5.2); RDW 14.3 % (11.6-15.6); WHITE BLOOD COUNT 8.9 K/mm3 (4.0-10.0)
--- NOTE | 2019-05-01 09:33 | PN ---
Progress Note (short form) - Note Progress Note: Feels a little better today. Less congested cough. Insomnia last night as she did not receive her clonazepam. No fevers recorded. No acute events overnight. Intake & Output 04/28/19 04/29/19 04/30/19 05/01/19 23:59 23:59 23:59 23:59 Intake Total 900 1000 200 400 Balance 900 1000 200 400 Weight 160 lb 3 oz 161 lb 4 oz 162 lb 5 oz Last Vital Signs Temp Pulse Resp BP Pulse Ox 98.1 F 85 20 138/90 98 05/01/19 07:50 05/01/19 07:50 05/01/19 07:50 05/01/19 07:50 05/01/19 00:01 Active Medications Albuterol Sulfate (Ventolin 0.083% Nebulizer Soln -) 1 amp NEB Q4H PRN PRN Reason: SHORT OF BREATH/WHEEZING Last Admin: 04/29/19 04:50 Dose: 1 amp Albuterol/Ipratropium (Duoneb -) 1 amp NEB RQID [facility] Last Admin: 04/30/19 20:09 Dose: 1 amp Calcium Carbonate/Cholecalciferol (Os-Mikie 500+D -) 2 tab PO DAILY [facility] Last Admin: 04/30/19 09:41 Dose: 2 tab Clonazepam (Klonopin -) 0.5 mg PO DAILY [facility] Clonazepam (Klonopin -) 1 mg PO HS [facility] Guaifenesin (Robitussin Dm -) 10 ml PO Q6H PRN PRN Reason: COUGH Last Admin: 04/27/19 18:34 Dose: 10 ml Ertapenem 1 gm/ Sodium (Chloride) 50 mls @ 100 mls/hr IVPB DAILY [facility] Last Admin: 04/30/19 09:41 Dose: 100 mls/hr Sodium Chloride (1/2 Normal Saline) 1,000 mls @ 50 mls/hr IV ASDIR [facility] Stop: 05/01/19 14:40 Last Admin: 04/30/19 15:04 Dose: 50 mls/hr Lactobacillus Acidophilus (Bacid -) 1 tab PO DAILY [facility] Last Admin: 04/30/19 09:41 Dose: 1 tab Methylprednisolone Sodium Succinate (Solu-Medrol -) 40 mg IVPUSH Q8H-IV [facility] Last Admin: 05/01/19 02:08 Dose: 40 mg Ondansetron HCl (Zofran Injection) 4 mg IVPUSH Q6H PRN PRN Reason: NAUSEA AND/OR VOMITING Pantoprazole Sodium (Protonix -) 40 mg PO DAILY [facility] Last Admin: 04/30/19 09:41 Dose: 40 mg Sodium Chloride ([place] Nasal [place] -) 2 spray NS TID PRN PRN Reason: NASAL CONGESTION Last Admin: 04/26/19 11:39 Dose: 2 sprays Valacyclovir HCl (Valtrex -) 500 mg PO BID [facility] Last Admin: 04/30/19 22:02 Dose: 500 mg Gen: Less congested cough, NAD at rest Heart: RRR Lung: Bilateral coarse rhonchi, No expiratory wheeze heard today Abd: soft, nontender Ext: no edema Laboratory Results - last 24 hr 04/30/19 05/01/19 21:45 08:10 WBC 8.9 RBC 2.81 L Hgb 8.6 L Hct 25.8 L MCV 91.6 MCH 30.6 MCHC 33.4 RDW 14.3 Plt Count 279 D MPV 8.2 Absolute Neuts (auto) 7.9 Neutrophils % 88.9 H Lymphocytes % 6.8 L Monocytes % 4.1 D Eosinophils % 0.0 Basophils % 0.2 Nucleated RBC % 0 Sodium 139 Potassium 4.8 Chloride 102 Carbon Dioxide 34 H Anion Gap 4 L BUN 25.1 H Creatinine 1.2 Est GFR (CKD-EPI)AfAm 51.92 Est GFR (CKD-EPI)NonAf 44.80 Random Glucose 207 H Calcium 9.1 A/P UTI Gram Negative Bacteremia Severe Sepsis Acute Kidney Injury Lactic Acidosis resolved Anemia/Thrombocytopenia COPD Chronic Hypoxic Respiratory Failure Obstructive Sleep Apnea - Change Medrol to Prednisone - Continue antibiotics per ID - monitor urine output, creatinine - inhaled bronchodilators - O2 to keep SpO2 >90% - CPAP at night - monitor CBC - DVT prophylaxis Dr Ruano
[2019-05-01 09:35] LABS: BILIRUBIN,TOTAL 0.3 mg/dL (0.2-1); BLOOD UREA NITROGEN 25.2 mg/dL (7-18); CALCIUM 9.2 mg/dL (8.5-10.1); CREATININE 1.1 mg/dL (0.55-1.3); TOT PROT 5.4 g/dl (6.4-8.2)
--- NOTE | 2019-05-01 10:00 | PN ---
Progress Note (short form) - Note Progress Note: Hospitalist Medicine Pt very anxious overnight. Discussed w/ patient and financial services sales representative, Camille over phone this AM. Meds reconciled; Klonopin 0.5mg PO AM, 1 mg PO qHS. Without further complaint. Vitals 05/01/19 07:50 Temperature 98.1 F Pulse Rate 85 Respiratory 20 Rate Blood Pressure 138/90 Physical Exam general: resting in bed. pleasant. in NAD +coughing HEENT: NCAT, PERRLA, dry cracked lips. ulcerated pulm: decreased breath sounds throughout. no accessory m usage cardio: +reg rate.S1, S2, RRR. no r/m/g abdomen: soft, no guarding, or rigidity LE: no edema. 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 Laboratory Tests 05/01/19 05/01/19 05/01/19 08:10 08:10 08:10 WBC 8.9 Hgb 8.6 L Hct 25.8 L Plt Count 279 D Sodium 141 Potassium 5.0 Chloride 103 Anion Gap 4 L BUN 25.2 H Creatinine 1.1 Alkaline Phosphatase 119 H Total Protein 5.4 L Hep A IgM Ab Confirm Hep Bs Antigen Hep B Core IgM Ab Hep C Ab Diagnostic Pending Hepatitis C Ab (EIA) HIV 1&2 Ag/Ab, 4th Gen 05/01/19 05/01/19 08:10 08:10 WBC Hgb Hct Plt Count Sodium Potassium Chloride Anion Gap BUN Creatinine Alkaline Phosphatase Total Protein Hep A IgM Ab Confirm Pending Hep Bs Antigen Pending Hep B Core IgM Ab Pending Hep C Ab Diagnostic Hepatitis C Ab (EIA) Pending HIV 1&2 Ag/Ab, 4th Gen Pending Microbiology 04/23/19 10:30 Stool Salmonella/Shigella Culture - Final 04/23/19 10:30 Stool Escherichia coli 0157 Culture - Final NO GROWTH OF SALMONELLA OR SHIGELLA SPECIES OBTAINED NO GROWTH OF CAMPYLOBACTER SPECIES OBTAINED NO GROWTH OF YERSINIA SPECIES OBTAINED NO GROWTH OF VIBRIO SPECIES OBTAINED NO GROWTH OF E COLI 0157 OBTAINED 04/23/19 10:30 Stool Gram Stain - Final 04/22/19 18:00 Nares - Mrsa Screen - Right MRSA Screen - Final NO MRSA ISOLATED 04/22/19 18:00 Nares - Mrsa Screen - Left MRSA Screen - Final NO MRSA ISOLATED 04/22/19 10:30 Stool Clostridioides difficile Antigen - Final 04/22/19 10:30 Stool Clostridioides difficile Toxin Assay - Final 04/21/19 13:00 Blood - Peripheral Venous Blood Culture - Final Escherichia Coli Esbl Executive Administrative Asst 04/21/19 12:59 Blood - Peripheral Venous Blood Culture - Final NO GROWTH AFTER 5 DAYS INCUBATION 04/21/19 12:56 Urine - Urine Clean Catch Urine Culture - Final Gram Negative Jarret 04/23/19 06:15 Blood - Peripheral Venous Blood Culture - Preliminary NO GROWTH OBTAINED AFTER 96 HOURS, INCUBATION TO CONTINUE FOR 1 DAYS. 04/23/19 05:40 Blood - Peripheral Venous Blood Culture - Preliminary NO GROWTH OBTAINED AFTER 96 HOURS, INCUBATION TO CONTINUE FOR 1 DAYS. Assessment/Plan 73 y/o F with PMH COPD on 2L 02, JANETTE on CPAP, h/o partial lung resection - carcinoid, GERD, prior hx MRSA who presented with hypotension, N/V, coffee ground emesis and LUH. #COPD on 2L 02 #CPAP use -c/w duonebs PRN -c/w CPAP -restarted on prednisone 40mg PO qd. will taper down to home dose will change to home dose tomorrow: alternating 5 and 10mg every other day -Pulm consulted: Dr. Ruano #N/V/D, coffee ground emesis, possible 2/2 gastric outlet obstruction -c/t monitor H/H; has been stable -asa is held -on protonix 40 mg PO qd -UGI series: reveals esophageal dysmotility with large, sliding hiatal hernia -d/w GI: EGD to occur later in stay. Call placed -GI: Dr. Meier #Chronic pericardial effusion -since 2018 -no JVD, hemodynamically stable -if develops tamponade then will need drainage #gram (-) sepsis 2/2 UTI -coverage changed to ertapenem (04/25) from tonio. Day 01/13 total. ESBL, PCN/ sulfa allergy -on bacid. -recent cx (-) -isolation precautions: past hx MRSA, now ESBL -ID on board: Dr. Rojas #oral HSV -c/w valtrex #LUH - resolved #anxiety -home klonopin 1mg qHS qd -0.5mg qAM -at baseline per daughter #hyperkalemia- resolved #F/E/N off IVF continue to follow lytes dysphagia chopped diet #PPX DVT: SCD's #Dispo monitoring on floor, on IV abx plan for EGD once infection improves - call placed <China Mayorga - Last Filed: 05/01/19 17:36> - Note Progress Note: Seen and examined; please see resident note for further information. Agree with above as documented aside from as supplemented by myself. Personally verified all gonzalez historical details, PE findings, as well as all labs, imaging, and diagnostics. Discussed at length with resident and indicated consultants. Continues to be tolerating antibiotics, he dynamically stable and afebrile with no no issues. No bleeding is noted. She had issues with sleep last night due to not having her klonopin. It was communicated to me that this issue was addressed by the resident team so it is unclear why this was-it was verified patient had the aforementioned dose. She got melatonin overnight which she states was innefective. Restarting home med. 10 sys ROS done and negative aside from HPI NAD, AAO, resting in bed NC AT EOMI PERRLA HR wnl, s1/2+ Lungs CTAB, w/ sym exp NT ND +BS CN2-12 wnl, no fnd Normal mood, appropriate behavior, average insight Trachea midline, no JVD Upper GI series revealing large hiatal hernia and thickened gastric folds MBS reviewed CXR reviewed Admission CT noted Micro noted w/ ESBL+EC. A/P: Patient continues on IV abx and is pending scope; renal, ID, and GI continue to follow. Once off abx and done with scope can return to [facility]. Problems include: -Sepsis 2/2 ESBL+ E. Coli Complicated UTI (Continue abx; on carbepenem per ID for prolonged course, no issues noted. D/W specialty services.) -Recurring UTIs -Insomnia (restart home clonazepam) -Pericardial effusion (Clinical exam unchanged today. Per CV this is chronic small to moderate since at least April 2018, negative on PET scan which she had done for lung nodule. Prior echos have had equivocal findings of tamponade , as does current study but clinically she has not shown any instability or signs/ symptoms of tamponade. Currently with no clinical signs of active tamponade but will be vigilant. If clinically indicated will need drainage.) -LUH, Improved (followup with nephrology) -Chronic hypoxic respiratory failure secondary to COPD, JANETTE (Continue BDs, steroids per pulm. C/W O2 w/o changes today) -Acute on chronic anemia (Likely chronic disease with likely acute blood loss anemia component, pending EGD when clinically appropriate per GI services. No acute bleeding noted. Continue to trend CBC. 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 If worsens consider psych consult. Consider chronic medication tx with SNRI, etc.) -Multiple allergies (Unrelated groups such as latex, PNC, sulfa, opioids. Should discuss with pt and PCP if needed nonurgently) -Hx HTN (Controlled) Full Code <Alexander Turner - Last Filed: 05/02/19 12:49>
[2019-05-01] MEDS ORDERED: PT OWN MED DRAWER 7, Y5N ONE ×2 (10:08→19:22)
[2019-05-01] MEDS: predniSONE 20 MG TABLET (UD) PO SCH (10:16)
[2019-05-01] MEDS: LACTOBACILLUS ACIDOPHILUS 1 TABLET PO SCH (10:16)
[2019-05-01] MEDS: clonazePAM 0.5 MG TABLET PO SCH ×2 (10:17→21:24)
[2019-05-01] MEDS: CALCIUM 500MG/VIT-D 200 UNITS COMBO TABLET (FP) PO SCH (10:17)
[2019-05-01] MEDS: PANTOPRAZOLE 40 MG TABLET (FP) PO SCH (10:17)
[2019-05-01] MEDS: valACYclovir HCL 500 MG TABLET (FP) PO SCH ×2 (10:17→21:24)
[2019-05-01] MEDS: ERTAPENEM SODIUM 1 GM in SODIUM CHLORIDE 50 ML IVPB SCH (10:18)
--- NOTE | 2019-05-01 13:14 | PN ---
Progress Note (short form) - Note Progress Note: s: no chest pain, palps, dizziness, dyspnea. cough improving. Had increasing abd swelling (10 lb weight gain), urinating a lot today Current Medications Albuterol Sulfate (Ventolin 0.083% Nebulizer Soln -) 1 amp NEB Q4H PRN PRN Reason: SHORT OF BREATH/WHEEZING Last Admin: 04/29/19 04:50 Dose: 1 amp Albuterol/Ipratropium (Duoneb -) 1 amp NEB RQID [facility] Last Admin: 05/01/19 12:27 Dose: 1 amp Calcium Carbonate/Cholecalciferol (Os-Mikie 500+D -) 2 tab PO DAILY [facility] Last Admin: 05/01/19 10:17 Dose: 2 tab Clonazepam (Klonopin -) 0.5 mg PO DAILY [facility] Last Admin: 05/01/19 10:17 Dose: 0.5 mg Clonazepam (Klonopin -) 1 mg PO HS [facility] Guaifenesin (Robitussin Dm -) 10 ml PO Q6H PRN PRN Reason: COUGH Last Admin: 04/27/19 18:34 Dose: 10 ml Ertapenem 1 gm/ Sodium (Chloride) 50 mls @ 100 mls/hr IVPB DAILY [facility] Last Admin: 05/01/19 10:18 Dose: 100 mls/hr Sodium Chloride (1/2 Normal Saline) 1,000 mls @ 50 mls/hr IV ASDIR [facility] Stop: 05/01/19 14:40 Last Admin: 04/30/19 15:04 Dose: 50 mls/hr Lactobacillus Acidophilus (Bacid -) 1 tab PO DAILY [facility] Last Admin: 05/01/19 10:16 Dose: 1 tab Ondansetron HCl (Zofran Injection) 4 mg IVPUSH Q6H PRN PRN Reason: NAUSEA AND/OR VOMITING Pantoprazole Sodium (Protonix -) 40 mg PO DAILY [facility] Last Admin: 05/01/19 10:17 Dose: 40 mg Prednisone (Deltasone -) 40 mg PO DAILY [facility] Last Admin: 05/01/19 10:16 Dose: 40 mg Sodium Chloride ([place] Nasal [place] -) 2 spray NS TID PRN PRN Reason: NASAL CONGESTION Last Admin: 04/26/19 11:39 Dose: 2 sprays Valacyclovir HCl (Valtrex -) 500 mg PO BID [facility] Last Admin: 05/01/19 10:17 Dose: 500 mg Vital Signs Period Temp Pulse Resp BP Sys/Cárdenas Pulse Ox Last 24 Hr 98.1 F-99.4 F 85-109 20-22 102-138/56-90 96-98 Constitutional: Yes: No Distress Cardiovascular: Yes: Regular Rate and Rhythm, Tachycardia, Other (no JVD) Respiratory: Yes: Other (severely reduced breath sounds bilaterally- chronic. C/ W COPD. No active wheezing.) Gastrointestinal: Yes: Soft Edema: No Neurological: Yes: Alert, Oriented no jaundice, diaphoresis not agitated Assessment/Plan 73 yo female with HTN, HPL and hiatal hernia here with early sepsis-like clinical picture secondary to UTI, gram negative sepsis and ARF in setting of acute sepsis. Sepsis, gram neg bacteremia, gram neg UTI: -abx per ID -cont IVF Tachycardia: Sinus tach in setting of infection, anemia. Physiologic response. -Patient has no obstructive CAD on cath done in 02/2019, trop neg here -Tachycardia is responsive to underlying sepsis - cont abx per primary, ID Pericardial effusion: - Chronic since at least April 2018, negative on PET scan which she had done for lung nodule. -This effusion has been small to moderate in size since 2018 and stable. -Prior echos have had equivocal findings of tamponade, as does current study but clinically she has not shown any instability or signs/ symptoms of tamponade. -no JVD, hemodynamically stable, tachy likely sec to sepsis/anxiety/anemia -Current study with similar size chronic effusion, and with indeterminate/ equivocal features for tamponade similar to study in January 2019. -Because this effusion is chronic and unchanged, absence of clear clinical tamponade and thrombocytopenia, advise close clinical and echo follow up -Would reserve drainage procedure if effusion enlarges or if clinical changes indicative more clearly indicative of tamponade physiology. LUH: -sec to sepsis -renal fxn improving with IVF, supportive care COPD: -per pulm, hospitalist -abd swelling with 10 lb weight gain on steroids, now on PO steroids - improving - if weight not coming down with steroids, would consider adding lasix - patient wants to defer lasix now Anemia/guaiac + stool: -plan per PMD and GI
--- NOTE | 2019-05-01 18:42 | PN ---
Progress Note, Physician History of Present Illness: Pt seen and examined at bedside. She is awake and alert. She feels diarrhea is improving. - Current Medication List Current Medications: Active Medications Albuterol Sulfate (Ventolin 0.083% Nebulizer Soln -) 1 amp NEB Q4H PRN PRN Reason: SHORT OF BREATH/WHEEZING Last Admin: 04/29/19 04:50 Dose: 1 amp Albuterol/Ipratropium (Duoneb -) 1 amp NEB RQID [facility] Last Admin: 05/01/19 16:05 Dose: 1 amp Calcium Carbonate/Cholecalciferol (Os-Mikie 500+D -) 2 tab PO DAILY [facility] Last Admin: 05/01/19 10:17 Dose: 2 tab Clonazepam (Klonopin -) 0.5 mg PO DAILY [facility] Last Admin: 05/01/19 10:17 Dose: 0.5 mg Clonazepam (Klonopin -) 1 mg PO HS [facility] Guaifenesin (Robitussin Dm -) 10 ml PO Q6H PRN PRN Reason: COUGH Last Admin: 04/27/19 18:34 Dose: 10 ml Ertapenem 1 gm/ Sodium (Chloride) 50 mls @ 100 mls/hr IVPB DAILY [facility] Last Admin: 05/01/19 10:18 Dose: 100 mls/hr Lactobacillus Acidophilus (Bacid -) 1 tab PO DAILY [facility] Last Admin: 05/01/19 10:16 Dose: 1 tab Ondansetron HCl (Zofran Injection) 4 mg IVPUSH Q6H PRN PRN Reason: NAUSEA AND/OR VOMITING Pantoprazole Sodium (Protonix -) 40 mg PO DAILY [facility] Last Admin: 05/01/19 10:17 Dose: 40 mg Prednisone (Deltasone -) 40 mg PO DAILY [facility] Last Admin: 05/01/19 10:16 Dose: 40 mg Sodium Chloride ([place] Nasal [place] -) 2 spray NS TID PRN PRN Reason: NASAL CONGESTION Last Admin: 04/26/19 11:39 Dose: 2 sprays Valacyclovir HCl (Valtrex -) 500 mg PO BID [facility] Last Admin: 05/01/19 10:17 Dose: 500 mg - Objective Vital Signs: Vital Signs Temperature 98.1 F 05/01/19 16:20 Pulse Rate 110 H 05/01/19 16:20 Respiratory Rate 20 05/01/19 16:20 Blood Pressure 132/80 05/01/19 16:20 O2 Sat by Pulse Oximetry (%) 98 05/01/19 07:45 Constitutional: Yes: Calm Eyes: Yes: Conjunctiva Clear HENT: Yes: Atraumatic Neck: Yes: Supple Cardiovascular: Yes: S1, S2 Respiratory: Yes: CTA Bilaterally Gastrointestinal: Yes: Normal Bowel Sounds, Soft Genitourinary: Yes: WNL Edema: No Neurological: Yes: Oriented Psychiatric: Yes: Oriented Labs: CBC, BMP 05/01/19 08:10 05/01/19 08:10 INR, PTT INR 1.04 (0.83-1.09) 04/24/19 06:08 Problem List - Problems (1) Acute renal failure Code(s): N17.9 - ACUTE KIDNEY FAILURE, UNSPECIFIED Qualifiers: Acute renal failure type: unspecified Qualified Code(s): N17.9 - Acute kidney failure, unspecified (2) COPD (chronic obstructive pulmonary disease) Code(s): J44.9 - CHRONIC OBSTRUCTIVE PULMONARY DISEASE, UNSPECIFIED (3) Sepsis Code(s): A41.9 - SEPSIS, UNSPECIFIED ORGANISM Qualifiers: Sepsis type: sepsis due to unspecified organism Sepsis acute organ dysfunction status: with acute organ dysfunction Severe sepsis acute organ dysfunction type: acute liver failure Hepatic coma status: without hepatic coma Severe sepsis shock status: without septic shock Qualified Code(s): A41.9 - Sepsis, unspecified organism; R65.20 - Severe sepsis without septic shock; K72.00 - Acute and subacute hepatic failure without coma Assessment/Plan Current Medications Generic Name Dose Route Start Last Admin Trade Name Freq PRN Reason Stop Dose Admin Albuterol Sulfate 1 amp 04/24/19 10:21 04/29/19 04:50 Ventolin 0.083% Nebulizer Soln - NEB 1 amp Q4H PRN Administration SHORT OF BREATH/WHEEZING Albuterol/Ipratropium 1 amp 04/24/19 12:00 05/01/19 16:05 Duoneb - NEB 1 amp RQID [facility] Administration Calcium Carbonate/Cholecalciferol 2 tab 04/25/19 20:00 05/01/19 10:17 Os-Mikie 500+D - PO 2 tab DAILY [facility] Administration Clonazepam 0.5 mg 05/01/19 10:00 05/01/19 10:17 Klonopin - PO 0.5 mg DAILY [facility] Administration Clonazepam 1 mg 05/01/19 22:00 Klonopin - PO HS [facility] Guaifenesin 10 ml 04/24/19 09:17 04/27/19 18:34 Robitussin Dm - PO 10 ml Q6H PRN Administration COUGH Ertapenem 1 gm/ Sodium 50 mls @ 100 mls/hr 04/25/19 15:30 05/01/19 10:18 Chloride IVPB 100 mls/hr DAILY [facility] Administration Lactobacillus Acidophilus 1 tab 04/28/19 10:00 05/01/19 10:16 Bacid - PO 1 tab DAILY [facility] Administration Ondansetron HCl 4 mg 04/24/19 09:17 Zofran Injection IVPUSH Q6H PRN NAUSEA AND/OR VOMITING Pantoprazole Sodium 40 mg 04/27/19 10:00 05/01/19 10:17 Protonix - PO 40 mg DAILY [facility] Administration Prednisone 40 mg 05/01/19 10:00 05/01/19 10:16 Deltasone - PO 40 mg DAILY [facility] Administration Sodium Chloride 2 spray 04/26/19 10:09 04/26/19 11:39 [place] Nasal [place] - NS 2 sprays TID PRN Administration NASAL CONGESTION Valacyclovir HCl 500 mg 04/24/19 22:00 05/01/19 10:17 Valtrex - PO 500 mg BID [facility] Administration Impression 1. LUH 2. hyperkalemia 3. sepsis 4. copd 5. anxiety 6. 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
--- NOTE | 2019-05-01 19:13 | PN.GI ---
GI Progress Note Subjective: CALLED TO FOLLOW UP ON PATIENT WITH ANEMIA / FOBT POSITIVE STOOL. PATIENT IS A POOR HISTORIAN HOWEVER DENIES ABDOMINAL PAIN / NAUSEA/ VOMITING/ BLOOD IN THE STOOL SHE STATES SHE IS FEELING OKAY BUT CONCERNED REGARDING THE TIMING OF AN ENDOSCOPY. - Objective Vital Signs: Vital Signs Temperature 98.1 F 05/01/19 16:20 Pulse Rate 110 H 05/01/19 16:20 Respiratory Rate 20 05/01/19 16:20 Blood Pressure 132/80 05/01/19 16:20 O2 Sat by Pulse Oximetry (%) 98 05/01/19 07:45 Constitutional: Well Nourished, No Distress, Calm Eyes: Yes: WNL HENT: Yes: WNL Neck: Yes: WNL Cardiovascular: Yes: WNL Respiratory: Yes: WNL, Regular, CTA Bilaterally Gastrointestinal Inspection: Yes: WNL ...Auscultate: Yes: Normoactive Bowel Sounds ...Palpate: Yes: Other (NONTENDER ; NORMAL BOWEL SOUNDS) Extremities: Yes: WNL Edema: No Labs: CBC, BMP 05/01/19 08:10 05/01/19 08:10 INR, PTT INR 1.04 (0.83-1.09) 04/24/19 06:08 Assessment/Plan IMPRESSION: 1. ANEMIA / FOBT POSITIVE WITHOUT SIGN OF AN OVERT GI BLEED AT THIS TIME. 2. SEPSIS 3. COPD UGI SERIES REVIEWED - LARGE HIATUS HERNIA / THICK GASTRIC FOLDS REC: C/W CONSERVATIVE MANAGEMENT CONSIDERING SHE IS ON PREDNISONE AND ANTIBIOTICS AND NOT FULLY OPTIMIZED. PPI DIET TOLERATED AVOID NSAID MONITOR H/H QD Problem List - Problems (1) Anemia Code(s): D64.9 - ANEMIA, UNSPECIFIED (2) Acute renal failure Code(s): N17.9 - ACUTE KIDNEY FAILURE, UNSPECIFIED Qualifiers: Acute renal failure type: unspecified Qualified Code(s): N17.9 - Acute kidney failure, unspecified (3) Aspiration pneumonia Code(s): J69.0 - PNEUMONITIS DUE TO INHALATION OF FOOD AND VOMIT Qualifiers: Aspiration pneumonia type: due to vomit Laterality: right Lung location: lower lobe of lung Qualified Code(s): J69.0 - Pneumonitis due to inhalation of food and vomit (4) COPD (chronic obstructive pulmonary disease) Code(s): J44.9 - CHRONIC OBSTRUCTIVE PULMONARY DISEASE, UNSPECIFIED (5) MRSA (methicillin resistant Staphylococcus aureus) colonization Code(s): Z22.322 - CARRIER OR SUSPECTED CARRIER OF METHICILLIN RESIS STAPH (6) Sepsis Code(s): A41.9 - SEPSIS, UNSPECIFIED ORGANISM Qualifiers: Sepsis type: sepsis due to unspecified organism Sepsis acute organ dysfunction status: with acute organ dysfunction Severe sepsis acute organ dysfunction type: acute liver failure Hepatic coma status: without hepatic coma Severe sepsis shock status: without septic shock Qualified Code(s): A41.9 - Sepsis, unspecified organism; R65.20 - Severe sepsis without septic shock; K72.00 - Acute and subacute hepatic failure without coma
[2019-05-01] MEDS: guaiFENesin/D-METHORPHAN HB 10 ML UNIT-DOSE CUPS PO PRN (21:24)
[2019-05-02] MEDS: ALBUTEROL SO4 2.5/IPRATROPIUM 0.5 INH SOL 3 ML VIAL.NEB. NEB SCH ×4 (07:30→21:29)
[2019-05-02 08:45] LABS: BASO % 0.1 % (0-2.0); EOS % 0.5 % (0-4.5); HEMATOCRIT 27.3 % (32.4-45.2); HEMOGLOBIN 9.1 GM/dL (10.7-15.3); LYMPH % 17.7 % (8-40); MCH 30.5 pg (25.7-33.7); MCHC 33.2 g/dl (32.0-36.0); MEAN CELL VOLUME 91.8 fl (80-96); MEAN PLT VOLUME 7.7 fl (7.5-11.1); MONO % 8.6 % (3.8-10.2); NEUT % 73.1 % (42.8-82.8); PLATELET COUNT 304 K/MM3 (134-434); RBC 2.97 M/mm3 (3.60-5.2); RDW 14.4 % (11.6-15.6); WHITE BLOOD COUNT 7.2 K/mm3 (4.0-10.0)
[2019-05-02 09:09] LABS: BLOOD UREA NITROGEN 24.2 mg/dL (7-18); CALCIUM 9.6 mg/dL (8.5-10.1); CREATININE 1.1 mg/dL (0.55-1.3); MAGNESIUM 1.8 mg/dL (1.8-2.4); POTASSIUM 4.2 mmol/L (3.5-5.1)
[2019-05-02] MEDS ORDERED: PT OWN MED DRAWER 7, Y5N ONE ×2 (10:36→13:52)
--- NOTE | 2019-05-02 10:37 | PN ---
Progress Note (short form) - Note Progress Note: Seen and examined; please see resident note for further information. Agree with above as documented aside from as supplemented by myself. Personally verified all gonzalez historical details, PE findings, as well as all labs, imaging, and diagnostics. Discussed at length with resident and indicated consultants. Insomnia improved, no new issues. Denies bleeding or worsening shortness of breath. No dysuria or confusion. 10 sys ROS done and negative aside from HPI NAD, AAO, resting in bed NC AT EOMI PERRLA HR wnl, s1/2+ Lungs CTAB, w/ sym exp NT ND +BS CN2-12 wnl, no fnd Normal mood, appropriate behavior, average insight Trachea midline, no JVD Upper GI series revealing large hiatal hernia and thickened gastric folds MBS reviewed CXR reviewed Admission CT noted Micro noted w/ ESBL+EC. A/P: Patient continues on IV abx and is pending scope; renal, ID, and GI continue to follow. Once off abx and done with scope can return to [facility]. Problems include: -Sepsis 2/2 ESBL+ E. Coli Complicated UTI (Continue abx; on carbepenem per ID for prolonged course, no issues noted. D/W specialty services.) -Recurring UTIs -Insomnia (improved after restarted home clonazepam) -Pericardial effusion (Clinical exam unchanged today. Per CV this is chronic small to moderate since at least April 2018, negative on PET scan which she had done for lung nodule. Prior echos have had equivocal findings of tamponade , as does current study but clinically she has not shown any instability or signs/ symptoms of tamponade. Currently with no clinical signs of active tamponade but will be vigilant. If clinically indicated will need drainage.) -LUH, Improved (followup with nephrology) -Chronic hypoxic respiratory failure secondary to COPD, JANETTE (Continue BDs, steroids per pulm. C/W O2 w/o changes today) -Acute on chronic anemia (Likely chronic disease with likely acute blood loss anemia component, pending EGD when clinically appropriate per GI services. No acute bleeding noted. Continue to trend CBC. 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 If worsens consider psych consult. Consider chronic medication tx with SNRI, etc.) -Multiple allergies (Unrelated groups such as latex, PNC, sulfa, opioids. Should discuss with pt and PCP if needed nonurgently) -Hx HTN (Controlled) Full Code <Alexander Turner - Last Filed: 05/02/19 12:51> - Note Progress Note: Hospitalist Medicine Pt rested well, but still believes her breathing is labored. Appears comfortable. per GI, she is still not optimized for EGD as she is on abx and on higher dose of prednisone than her home dose. Pt states that ''procedures for [ her] are always done in the hospital, d/t concern for respiratory issues." Vitals 05/02/19 06:54 Temperature 97.5 F L Pulse Rate 90 Respiratory 20 Rate Blood Pressure 127/79 Physical Exam general: resting in bed. pleasant. in NAD HEENT: NCAT, PERRLA, dry cracked lips. ulcerated - improved pulm: decreased breath sounds throughout. no accessory m usage cardio: +reg rate.S1, S2, RRR. no r/m/g abdomen: soft, no guarding, or rigidity LE: no edema. 2+ pulses neuro: protocol officer 2-12 grossly intact Laboratory Tests 05/02/19 05/02/19 08:00 08:00 WBC 7.2 Hgb 9.1 L Hct 27.3 L Plt Count 304 Sodium 143 Potassium 4.2 Chloride 102 BUN 24.2 H Creatinine 1.1 Phosphorus 5.0 H Microbiology 04/23/19 10:30 Stool Salmonella/Shigella Culture - Final 04/23/19 10:30 Stool Escherichia coli 0157 Culture - Final NO GROWTH OF SALMONELLA OR SHIGELLA SPECIES OBTAINED NO GROWTH OF CAMPYLOBACTER SPECIES OBTAINED NO GROWTH OF YERSINIA SPECIES OBTAINED NO GROWTH OF VIBRIO SPECIES OBTAINED NO GROWTH OF E COLI 0157 OBTAINED 04/23/19 10:30 Stool Gram Stain - Final 04/22/19 18:00 Nares - Mrsa Screen - Right MRSA Screen - Final NO MRSA ISOLATED 04/22/19 18:00 Nares - Mrsa Screen - Left MRSA Screen - Final NO MRSA ISOLATED 04/22/19 10:30 Stool Clostridioides difficile Antigen - Final 04/22/19 10:30 Stool Clostridioides difficile Toxin Assay - Final 04/21/19 13:00 Blood - Peripheral Venous Blood Culture - Final Escherichia Coli Esbl Track Grinder 04/21/19 12:59 Blood - Peripheral Venous Blood Culture - Final NO GROWTH AFTER 5 DAYS INCUBATION 04/21/19 12:56 Urine - Urine Clean Catch Urine Culture - Final Gram Negative Jarret 04/23/19 06:15 Blood - Peripheral Venous Blood Culture - Preliminary NO GROWTH OBTAINED AFTER 96 HOURS, INCUBATION TO CONTINUE FOR 1 DAYS. 04/23/19 05:40 Blood - Peripheral Venous Blood Culture - Preliminary NO GROWTH OBTAINED AFTER 96 HOURS, INCUBATION TO CONTINUE FOR 1 DAYS. Assessment/Plan 73 y/o F with PMH COPD on 2L 02, JANETTE on CPAP, h/o partial lung resection - carcinoid, GERD, prior hx MRSA who presented with hypotension, N/V, coffee ground emesis and LUH. #COPD on 2L 02 #CPAP use -c/w duonebs PRN -c/w CPAP -on prednisone 40mg PO qd (Day2) will taper tomorrow to 30mg eventual taper to home dose: alternating 5 and 10mg every other day -Pulm consulted: Dr. Ruano #N/V/D, coffee ground emesis, possible 2/2 gastric outlet obstruction -c/t monitor H/H; has been stable -asa is held -on protonix 40 mg PO qd -UGI series: reveals esophageal dysmotility with large, sliding hiatal hernia -d/w GI: EGD to occur when pt med optimized, off abx. Per pulm, pt is optimized -GI: Dr. Meier #Chronic pericardial effusion -since 2018 -no JVD, hemodynamically stable -if develops tamponade then will need drainage #gram (-) sepsis 2/2 UTI -coverage changed to ertapenem (04/25) from tonio. Day 02/13 total. ESBL, PCN/ sulfa allergy -on bacid. -recent cx (-) -isolation precautions: past hx MRSA, now ESBL -ID on board: Dr. Rojas #oral HSV -c/w valtrex #LUH - resolved #anxiety -home klonopin 1mg qHS qd -0.5mg qAM -at baseline per daughter #hyperkalemia- resolved #F/E/N off IVF continue to follow lytes dysphagia chopped diet #PPX DVT: SCD's #Dispo monitoring on floor, on IV abx plan for EGD tentatively on Tuesday per GI <China Mayorga - Last Filed: 05/02/19 17:16>
[2019-05-02] MEDS: ERTAPENEM SODIUM 1 GM in SODIUM CHLORIDE 50 ML IVPB SCH (10:38)
--- NOTE | 2019-05-02 12:49 | PN ---
Progress Note, Physician History of Present Illness: PULMONARY ALERT,STILL C/O SOB,-CP - Current Medication List Current Medications: Active Medications Albuterol Sulfate (Ventolin 0.083% Nebulizer Soln -) 1 amp NEB Q4H PRN PRN Reason: SHORT OF BREATH/WHEEZING Last Admin: 04/29/19 04:50 Dose: 1 amp Albuterol/Ipratropium (Duoneb -) 1 amp NEB RQID [facility] Last Admin: 05/02/19 07:30 Dose: 1 amp Calcium Carbonate/Cholecalciferol (Os-Mikie 500+D -) 2 tab PO DAILY [facility] Last Admin: 05/01/19 10:17 Dose: 2 tab Clonazepam (Klonopin -) 0.5 mg PO DAILY [facility] Last Admin: 05/01/19 10:17 Dose: 0.5 mg Clonazepam (Klonopin -) 1 mg PO HS [facility] Last Admin: 05/01/19 21:24 Dose: 1 mg Guaifenesin (Robitussin Dm -) 10 ml PO Q6H PRN PRN Reason: COUGH Last Admin: 05/01/19 21:24 Dose: 10 ml Ertapenem 1 gm/ Sodium (Chloride) 50 mls @ 100 mls/hr IVPB DAILY [facility] Last Admin: 05/02/19 10:38 Dose: 100 mls/hr Lactobacillus Acidophilus (Bacid -) 1 tab PO DAILY [facility] Last Admin: 05/01/19 10:16 Dose: 1 tab Ondansetron HCl (Zofran Injection) 4 mg IVPUSH Q6H PRN PRN Reason: NAUSEA AND/OR VOMITING Pantoprazole Sodium (Protonix -) 40 mg PO DAILY [facility] Last Admin: 05/01/19 10:17 Dose: 40 mg Prednisone (Deltasone -) 40 mg PO DAILY [facility] Last Admin: 05/01/19 10:16 Dose: 40 mg Sodium Chloride ([place] Nasal [place] -) 2 spray NS TID PRN PRN Reason: NASAL CONGESTION Last Admin: 04/26/19 11:39 Dose: 2 sprays Valacyclovir HCl (Valtrex -) 500 mg PO BID [facility] Last Admin: 05/01/19 21:24 Dose: 500 mg - Objective Vital Signs: Vital Signs Temperature 97.5 F L 05/02/19 06:54 Pulse Rate 90 05/02/19 06:54 Respiratory Rate 20 05/02/19 06:54 Blood Pressure 127/79 05/02/19 06:54 O2 Sat by Pulse Oximetry (%) 98 05/02/19 02:28 Constitutional: Yes: Well Nourished, Calm Eyes: Yes: WNL HENT: Yes: WNL Neck: Yes: WNL Cardiovascular: Yes: Regular Rate and Rhythm, S1, S2 Respiratory: Yes: Rhonchi, Wheezes (SCATTERED WHEEZES AND RHONCHI) Gastrointestinal: Yes: Normal Bowel Sounds, Soft Extremities: Yes: WNL Edema: No Labs: CBC, BMP 05/02/19 08:00 05/02/19 08:00 INR, PTT INR 1.04 (0.83-1.09) 04/24/19 06:08 Problem List - Problems (1) Anemia Code(s): D64.9 - ANEMIA, UNSPECIFIED (2) COPD (chronic obstructive pulmonary disease) Code(s): J44.9 - CHRONIC OBSTRUCTIVE PULMONARY DISEASE, UNSPECIFIED (3) Sepsis Code(s): A41.9 - SEPSIS, UNSPECIFIED ORGANISM Qualifiers: Sepsis type: sepsis due to unspecified organism Sepsis acute organ dysfunction status: with acute organ dysfunction Severe sepsis acute organ dysfunction type: acute liver failure Hepatic coma status: without hepatic coma Severe sepsis shock status: without septic shock Qualified Code(s): A41.9 - Sepsis, unspecified organism; R65.20 - Severe sepsis without septic shock; K72.00 - Acute and subacute hepatic failure without coma (4) COPD exacerbation Code(s): J44.1 - CHRONIC OBSTRUCTIVE PULMONARY DISEASE W (ACUTE) EXACERBATION (5) Hyperlipidemia Code(s): E78.5 - HYPERLIPIDEMIA, UNSPECIFIED (6) Hypertension Code(s): I10 - ESSENTIAL (PRIMARY) HYPERTENSION (7) Lung nodule Code(s): R91.1 - SOLITARY PULMONARY NODULE (8) Acute on chronic respiratory failure with hypoxia and hypercapnia Code(s): J96.21 - ACUTE AND CHRONIC RESPIRATORY FAILURE WITH HYPOXIA; J96.22 - ACUTE AND CHRONIC RESPIRATORY FAILURE WITH HYPERCAPNIA Assessment/Plan A/P UTI Gram Negative Bacteremia Severe Sepsis Acute Kidney Injury Lactic Acidosis resolved Anemia/Thrombocytopenia COPD Chronic Hypoxic Respiratory Failure Obstructive Sleep Apnea H/O Lung ca carcinoid - steroids - Continue antibiotics per ID - monitor urine output, creatinine - inhaled bronchodilators - O2 to keep SpO2 >90% - CPAP at night - monitor CBC - DVT prophylaxis DR HAMMOND
--- NOTE | 2019-05-02 13:03 | PN ---
Progress Note, Physician History of Present Illness: Pt seen and examined. SHe is tolerating diet. She denies shortness of breath. - Current Medication List Current Medications: Active Medications Albuterol Sulfate (Ventolin 0.083% Nebulizer Soln -) 1 amp NEB Q4H PRN PRN Reason: SHORT OF BREATH/WHEEZING Last Admin: 04/29/19 04:50 Dose: 1 amp Albuterol/Ipratropium (Duoneb -) 1 amp NEB RQID [facility] Last Admin: 05/02/19 07:30 Dose: 1 amp Calcium Carbonate/Cholecalciferol (Os-Mikie 500+D -) 2 tab PO DAILY [facility] Last Admin: 05/01/19 10:17 Dose: 2 tab Clonazepam (Klonopin -) 0.5 mg PO DAILY [facility] Last Admin: 05/01/19 10:17 Dose: 0.5 mg Clonazepam (Klonopin -) 1 mg PO HS [facility] Last Admin: 05/01/19 21:24 Dose: 1 mg Guaifenesin (Robitussin Dm -) 10 ml PO Q6H PRN PRN Reason: COUGH Last Admin: 05/01/19 21:24 Dose: 10 ml Ertapenem 1 gm/ Sodium (Chloride) 50 mls @ 100 mls/hr IVPB DAILY [facility] Last Admin: 05/02/19 10:38 Dose: 100 mls/hr Lactobacillus Acidophilus (Bacid -) 1 tab PO DAILY [facility] Last Admin: 05/01/19 10:16 Dose: 1 tab Ondansetron HCl (Zofran Injection) 4 mg IVPUSH Q6H PRN PRN Reason: NAUSEA AND/OR VOMITING Pantoprazole Sodium (Protonix -) 40 mg PO DAILY [facility] Last Admin: 05/01/19 10:17 Dose: 40 mg Prednisone (Deltasone -) 40 mg PO DAILY [facility] Last Admin: 05/01/19 10:16 Dose: 40 mg Sodium Chloride ([place] Nasal [place] -) 2 spray NS TID PRN PRN Reason: NASAL CONGESTION Last Admin: 04/26/19 11:39 Dose: 2 sprays Valacyclovir HCl (Valtrex -) 500 mg PO BID [facility] Last Admin: 05/01/19 21:24 Dose: 500 mg - Objective Vital Signs: Vital Signs Temperature 97.5 F L 05/02/19 06:54 Pulse Rate 90 05/02/19 06:54 Respiratory Rate 20 05/02/19 06:54 Blood Pressure 127/79 05/02/19 06:54 O2 Sat by Pulse Oximetry (%) 98 05/02/19 02:28 Constitutional: Yes: Calm Eyes: Yes: Conjunctiva Clear HENT: Yes: Atraumatic Cardiovascular: Yes: S1, S2 Respiratory: Yes: CTA Bilaterally Gastrointestinal: Yes: Soft Genitourinary: Yes: WNL Musculoskeletal: Yes: WNL Edema: No Neurological: Yes: Oriented Psychiatric: Yes: Oriented Labs: CBC, BMP 05/02/19 08:00 05/02/19 08:00 INR, PTT INR 1.04 (0.83-1.09) 04/24/19 06:08 Problem List - Problems (1) Acute renal failure Code(s): N17.9 - ACUTE KIDNEY FAILURE, UNSPECIFIED Qualifiers: Acute renal failure type: unspecified Qualified Code(s): N17.9 - Acute kidney failure, unspecified (2) COPD (chronic obstructive pulmonary disease) Code(s): J44.9 - CHRONIC OBSTRUCTIVE PULMONARY DISEASE, UNSPECIFIED (3) Sepsis Code(s): A41.9 - SEPSIS, UNSPECIFIED ORGANISM Qualifiers: Sepsis type: sepsis due to unspecified organism Sepsis acute organ dysfunction status: with acute organ dysfunction Severe sepsis acute organ dysfunction type: acute liver failure Hepatic coma status: without hepatic coma Severe sepsis shock status: without septic shock Qualified Code(s): A41.9 - Sepsis, unspecified organism; R65.20 - Severe sepsis without septic shock; K72.00 - Acute and subacute hepatic failure without coma Assessment/Plan Current Medications Generic Name Dose Route Start Last Admin Trade Name Freq PRN Reason Stop Dose Admin Albuterol Sulfate 1 amp 04/24/19 10:21 04/29/19 04:50 Ventolin 0.083% Nebulizer Soln - NEB 1 amp Q4H PRN Administration SHORT OF BREATH/WHEEZING Albuterol/Ipratropium 1 amp 04/24/19 12:00 05/02/19 07:30 Duoneb - NEB 1 amp RQID [facility] Administration Calcium Carbonate/Cholecalciferol 2 tab 04/25/19 20:00 05/01/19 10:17 Os-Mikie 500+D - PO 2 tab DAILY [facility] Administration Clonazepam 0.5 mg 05/01/19 10:00 05/01/19 10:17 Klonopin - PO 0.5 mg DAILY [facility] Administration Clonazepam 1 mg 05/01/19 22:00 05/01/19 21:24 Klonopin - PO 1 mg HS [facility] Administration Guaifenesin 10 ml 04/24/19 09:17 05/01/19 21:24 Robitussin Dm - PO 10 ml Q6H PRN Administration COUGH Ertapenem 1 gm/ Sodium 50 mls @ 100 mls/hr 04/25/19 15:30 05/02/19 10:38 Chloride IVPB 100 mls/hr DAILY [facility] Administration Lactobacillus Acidophilus 1 tab 04/28/19 10:00 05/01/19 10:16 Bacid - PO 1 tab DAILY [facility] Administration Ondansetron HCl 4 mg 04/24/19 09:17 Zofran Injection IVPUSH Q6H PRN NAUSEA AND/OR VOMITING Pantoprazole Sodium 40 mg 04/27/19 10:00 05/01/19 10:17 Protonix - PO 40 mg DAILY [facility] Administration Prednisone 40 mg 05/01/19 10:00 05/01/19 10:16 Deltasone - PO 40 mg DAILY [facility] Administration Sodium Chloride 2 spray 04/26/19 10:09 04/26/19 11:39 [place] Nasal [place] - NS 2 sprays TID PRN Administration NASAL CONGESTION Valacyclovir HCl 500 mg 04/24/19 22:00 05/01/19 21:24 Valtrex - PO 500 mg BID [facility] Administration Impression 1. LUH 2. hyperkalemia 3. sepsis 4. copd 5. anxiety 6. hypotension Plan - renal function stable - pt stable off of fluids - potassium improved - monitor lytes - will follow PRN
[2019-05-02] MEDS: predniSONE 20 MG TABLET (UD) PO SCH (13:57)
[2019-05-02] MEDS: LACTOBACILLUS ACIDOPHILUS 1 TABLET PO SCH (13:57)
[2019-05-02] MEDS: clonazePAM 0.5 MG TABLET PO SCH ×2 (13:57→21:21)
[2019-05-02] MEDS: PANTOPRAZOLE 40 MG TABLET (FP) PO SCH (13:57)
[2019-05-02] MEDS: CALCIUM 500MG/VIT-D 200 UNITS COMBO TABLET (FP) PO SCH (13:57)
[2019-05-02] MEDS: valACYclovir HCL 500 MG TABLET (FP) PO SCH ×2 (13:58→21:21)
--- NOTE | 2019-05-02 14:15 | PN ---
Progress Note (short form) - Note Progress Note: s: no chest pain, palps, dizziness, dyspnea. cough improving. Current Medications Generic Name Dose Route Start Last Admin Trade Name Freq PRN Reason Stop Dose Admin Albuterol Sulfate 1 amp 04/24/19 10:21 04/29/19 04:50 Ventolin 0.083% Nebulizer Soln - NEB 1 amp Q4H PRN Administration SHORT OF BREATH/WHEEZING Albuterol/Ipratropium 1 amp 04/24/19 12:00 05/02/19 07:30 Duoneb - NEB 1 amp RQID [facility] Administration Calcium Carbonate/Cholecalciferol 2 tab 04/25/19 20:00 05/02/19 13:57 Os-Mikie 500+D - PO 2 tab DAILY [facility] Administration Clonazepam 0.5 mg 05/01/19 10:00 05/02/19 13:57 Klonopin - PO 0.5 mg DAILY [facility] Administration Clonazepam 1 mg 05/01/19 22:00 05/01/19 21:24 Klonopin - PO 1 mg HS [facility] Administration Guaifenesin 10 ml 04/24/19 09:17 05/01/19 21:24 Robitussin Dm - PO 10 ml Q6H PRN Administration COUGH Ertapenem 1 gm/ Sodium 50 mls @ 100 mls/hr 04/25/19 15:30 05/02/19 10:38 Chloride IVPB 100 mls/hr DAILY [facility] Administration Lactobacillus Acidophilus 1 tab 04/28/19 10:00 05/02/19 13:57 Bacid - PO 1 tab DAILY [facility] Administration Ondansetron HCl 4 mg 04/24/19 09:17 Zofran Injection IVPUSH Q6H PRN NAUSEA AND/OR VOMITING Pantoprazole Sodium 40 mg 04/27/19 10:00 05/02/19 13:57 Protonix - PO 40 mg DAILY [facility] Administration Prednisone 40 mg 05/01/19 10:00 05/02/19 13:57 Deltasone - PO 40 mg DAILY [facility] Administration Sodium Chloride 2 spray 04/26/19 10:09 04/26/19 11:39 [place] Nasal [place] - NS 2 sprays TID PRN Administration NASAL CONGESTION Valacyclovir HCl 500 mg 04/24/19 22:00 05/02/19 13:58 Valtrex - PO 500 mg BID [facility] Administration Vital Signs Period Temp Pulse Resp BP Sys/Cárdenas Pulse Ox Last 24 Hr 97.5 F-98.4 F 90-119 20-22 115-132/59-80 98-98 Constitutional: Yes: No Distress Cardiovascular: Yes: Regular Rate and Rhythm, Tachycardia, Other (no JVD) Respiratory: Yes: Other (severely reduced breath sounds bilaterally- chronic. C/ W COPD. No active wheezing.) Gastrointestinal: Yes: Soft Edema: No Neurological: Yes: Alert, Oriented no jaundice, diaphoresis not agitated CBC, BMP 05/02/19 08:00 05/02/19 08:00 Assessment/Plan 73 yo female with HTN, HPL and hiatal hernia here with early sepsis-like clinical picture secondary to UTI, gram negative sepsis and ARF in setting of acute sepsis. Sepsis, gram neg bacteremia, gram neg UTI: -abx per ID Tachycardia: Sinus tach in setting of infection, anemia. Physiologic response. -Patient has no obstructive CAD on cath done in 02/2019, trop neg here -Tachycardia is responsive to underlying sepsis - cont abx per primary, ID Pericardial effusion: - Chronic since at least April 2018, negative on PET scan which she had done for lung nodule. -This effusion has been small to moderate in size since 2018 and stable. -Prior echos have had equivocal findings of tamponade, as does current study but clinically she has not shown any instability or signs/ symptoms of tamponade. -no JVD, hemodynamically stable, tachy likely sec to sepsis/anxiety/anemia -Current study with similar size chronic effusion, and with indeterminate/ equivocal features for tamponade similar to study in January 2019. -Because this effusion is chronic and unchanged, absence of clear clinical tamponade and thrombocytopenia, advise close clinical and echo follow up -Would reserve drainage procedure if effusion enlarges or if clinical changes indicative more clearly indicative of tamponade physiology. LUH: -sec to sepsis -renal fxn improving COPD: -per pulm, hospitalist Anemia/guaiac + stool: -plan per PMD and GI
--- NOTE | 2019-05-02 16:54 | PN ---
Progress Note (short form) - Note Progress Note: Called by pts manager case management Marley to readdress timing of endoscopy. Pt reportedly to be optimized and completin antibiotics tomorrow. Pt still dyspneic , though feeling better, near baseline. Cough improved. Denies chest pain or abdominal pain. On examination: Pt sitting up, appears comfortable Abd soft, nt, nd Labs reviewed. Hb stable. 73yo female h/o COPD, JANETTE on home O2, CPAP, pericardial effusion with gram negative bactermia. Still on antibiotics and prednisone. UGI series revealing large hiatal hernia and thickened gastric folds, otherwise unremarkable. No further n/v. Tolerating clear liquid diet. Diarrhea improved, c difficile negative. -Pt still being optimized per cardio and pulmonary teams -If further clinically improved and completed antibiotics could tentatively plan for EGD on Tuesday if pt is cleared from a cardiac and pulmonary standpoint as considering pts co-morbidities the risks/benefits of endoscopy will need to be carefully weighed. -Monitor Hb -Diet as tolerated -Antireflux measures -Continue PPI daily Attempted to contact primary team, await call back Dr. Choi covering through the weekend Problem List - Problems (1) Nausea & vomiting Code(s): R11.2 - NAUSEA WITH VOMITING, UNSPECIFIED
[2019-05-03 08:10] LABS: BASO % 0.1 % (0-2.0); EOS % 0.6 % (0-4.5); HEMATOCRIT 25.7 % (32.4-45.2); HEMOGLOBIN 8.6 GM/dL (10.7-15.3); LYMPH % 10.6 % (8-40); MCH 30.5 pg (25.7-33.7); MCHC 33.5 g/dl (32.0-36.0); MEAN CELL VOLUME 91.1 fl (80-96); MEAN PLT VOLUME 7.6 fl (7.5-11.1); MONO % 7.5 % (3.8-10.2); NEUT % 81.2 % (42.8-82.8); PLATELET COUNT 279 K/MM3 (134-434); RBC 2.82 M/mm3 (3.60-5.2); RDW 14.2 % (11.6-15.6); WHITE BLOOD COUNT 7.9 K/mm3 (4.0-10.0)
[2019-05-03] MEDS: ALBUTEROL SO4 2.5/IPRATROPIUM 0.5 INH SOL 3 ML VIAL.NEB. NEB SCH ×4 (08:53→20:20)
[2019-05-03 08:55] LABS: BLOOD UREA NITROGEN 23.2 mg/dL (7-18); CALCIUM 9.1 mg/dL (8.5-10.1); MAGNESIUM 1.8 mg/dL (1.8-2.4); PHOSPHOROUS 5.3 mg/dL (2.5-4.9); POTASSIUM 4.3 mmol/L (3.5-5.1)
--- NOTE | 2019-05-03 09:23 | PN ---
Progress Note (short form) - Note Progress Note: PULMONARY SLEPT WELL LAST EVENING USED NIV ALL NIGHT VSS/AFEBRILE Constitutional: Yes: Well Nourished, Calm Eyes: Yes: WNL HENT: Yes: WNL Neck: Yes: WNL Cardiovascular: Yes: Regular Rate and Rhythm, S1, S2 Respiratory: Yes: Rhonchi, Wheezes (SCATTERED WHEEZES AND RHONCHI) Gastrointestinal: Yes: Normal Bowel Sounds, Soft Extremities: Yes: WNL Edema: No Labs: NOTED A/P UTI Gram Negative Bacteremia resolved Severe Sepsis Acute Kidney Injury Lactic Acidosis resolved Anemia/Thrombocytopenia COPD stable Chronic Hypoxic Respiratory Failure Obstructive Sleep Apnea H/O Lung ca carcinoid - steroids slow taper - No objection for proceeding with GI endoscopic evaluation - Continue antibiotics per ID - monitor urine output, creatinine - inhaled bronchodilators - O2 to keep SpO2 >90% - CPAP at night - monitor CBC - DVT prophylaxis Leila BROWER MD
[2019-05-03] MEDS ORDERED: PT OWN MED DRAWER 7, Y5N ONE ×2 (10:11→21:02)
[2019-05-03] MEDS: PANTOPRAZOLE 40 MG TABLET (FP) PO SCH (10:13)
[2019-05-03] MEDS: clonazePAM 0.5 MG TABLET PO SCH ×2 (10:13→21:13)
[2019-05-03] MEDS: LACTOBACILLUS ACIDOPHILUS 1 TABLET PO SCH (10:13)
[2019-05-03] MEDS: predniSONE 20 MG TABLET (UD) PO SCH (10:14)
[2019-05-03] MEDS: CALCIUM 500MG/VIT-D 200 UNITS COMBO TABLET (FP) PO SCH (10:14)
[2019-05-03] MEDS: valACYclovir HCL 500 MG TABLET (FP) PO SCH ×2 (10:14→21:13)
[2019-05-03] MEDS: ERTAPENEM SODIUM 1 GM in SODIUM CHLORIDE 50 ML IVPB SCH (10:14)
--- NOTE | 2019-05-03 13:32 | PN ---
Progress Note (short form) - Note Progress Note: Hospitalist Medicine Pt in good spirits. Without complaint. Breathing improved. For tentative EGD on Tuesday Vitals 05/03/19 06:06 Temperature 97.9 F Pulse Rate 80 Respiratory 20 Rate Blood Pressure 150/85 Physical Exam general: resting in bed. pleasant. in NAD HEENT: NCAT, PERRLA, dry cracked lips. ulcerated - improved pulm: decreased breath sounds throughout. no accessory m usage cardio: +reg rate.S1, S2, RRR. no r/m/g abdomen: soft, no guarding, or rigidity. nontender LE: no edema. 2+ pulses neuro: junior staff accountant 2-12 grossly intact Laboratory Tests 05/03/19 05/03/19 07:32 07:32 WBC 7.9 Hgb 8.6 L Hct 25.7 L Plt Count 279 Sodium 142 Potassium 4.3 Chloride 101 Anion Gap 7 L BUN 23.2 H Creatinine 1.0 Phosphorus 5.3 H Microbiology 04/23/19 10:30 Stool Salmonella/Shigella Culture - Final 04/23/19 10:30 Stool Escherichia coli 0157 Culture - Final NO GROWTH OF SALMONELLA OR SHIGELLA SPECIES OBTAINED NO GROWTH OF CAMPYLOBACTER SPECIES OBTAINED NO GROWTH OF YERSINIA SPECIES OBTAINED NO GROWTH OF VIBRIO SPECIES OBTAINED NO GROWTH OF E COLI 0157 OBTAINED 04/23/19 10:30 Stool Gram Stain - Final 04/22/19 18:00 Nares - Mrsa Screen - Right MRSA Screen - Final NO MRSA ISOLATED 04/22/19 18:00 Nares - Mrsa Screen - Left MRSA Screen - Final NO MRSA ISOLATED 04/22/19 10:30 Stool Clostridioides difficile Antigen - Final 04/22/19 10:30 Stool Clostridioides difficile Toxin Assay - Final 04/21/19 13:00 Blood - Peripheral Venous Blood Culture - Final Escherichia Coli Esbl Spiral Winder 04/21/19 12:59 Blood - Peripheral Venous Blood Culture - Final NO GROWTH AFTER 5 DAYS INCUBATION 04/21/19 12:56 Urine - Urine Clean Catch Urine Culture - Final Gram Negative Jarret 04/23/19 06:15 Blood - Peripheral Venous Blood Culture - Preliminary NO GROWTH OBTAINED AFTER 96 HOURS, INCUBATION TO CONTINUE FOR 1 DAYS. 04/23/19 05:40 Blood - Peripheral Venous Blood Culture - Preliminary NO GROWTH OBTAINED AFTER 96 HOURS, INCUBATION TO CONTINUE FOR 1 DAYS. Imaging 04/21 CXR: no acute chest path 04/21 abdom sono: multiple hepatic cysts are noted (most prominent measuring 3.3cm in diameter, 1cm L and R hepatic lobe low attenuation foci as described on chest CTA on 01/2018 cannot be appreciated now). no gross mass lesion. liver mildly prominent. no calculi. pancreas partially obscured d/t overlapping bowel gas. no free intraperitoneal fluid seen. no R hydro. mild diffuse R renal cortical atrophy 04/21: CTAP: no acute path. partial imaging of pericardial effusion which is small to moderate volume. This finding is probably unchanged in comparison to past chest CT. moderate to large hiatal hernia. multiple hepatic cysts described. small L hepatic lobe cyst demonstrates interval development of mildly increased internal density in comparison to 2019, probably representing debris and less likely path. Multilevel thoracolumbar vertebral body compression fractures. L basilar discoid atelectasis, L posterior basilar suture line. Very small portion of lung parenchyma. 04/22: CXR : developed atelectatic and infiltrative changes more at the left base 04/24: Upper GI series: esophageal dysmotility, large sliding hiatal hernia, mild thickening of gastric folds. gastritis cannot be excluded. no evidence of gastric outlet obstruction or acute/chronic peptic ulcer dz. 04/26: MBS: moderate sized hiatus hernia 05/02: U/S: hepatomegaly w/ multiple hepatic cysts Assessment/Plan 73 y/o F with PMH COPD on 2L 02, JANETTE on CPAP, h/o partial lung resection - carcinoid, GERD, prior hx MRSA who presented with hypotension, N/V, coffee ground emesis and LUH. #COPD on 2L 02 #CPAP use -c/w duonebs PRN -c/w CPAP -on prednisone 40mg PO qd will taper tomorrow to 30mg eventual taper to home dose: alternating 5 and 10mg every other day -Pulm consulted: Dr. Ruano #N/V/D, coffee ground emesis, possible 2/2 gastric outlet obstruction -c/t monitor H/H; has been stable -asa is held -on protonix 40 mg PO qd -UGI series: reveals esophageal dysmotility with large, sliding hiatal hernia -d/w GI: EGD tentatively on Tuesday, pulm optimized -GI: Dr. Meier #Chronic pericardial effusion -since 2018 -no JVD, hemodynamically stable -if develops tamponade then will need drainage #gram (-) sepsis 2/2 UTI -coverage changed to ertapenem (04/25) from tonio. Day 03/15 total. ESBL, PCN/ sulfa allergy -on bacid. -recent cx (-) -isolation precautions: past hx MRSA, now ESBL -ID on board: Dr. Rojas #oral HSV -c/w valtrex #LUH - resolved #anxiety -home klonopin 1mg qHS qd -0.5mg qAM -at baseline per daughter #hyperkalemia- resolved #F/E/N off IVF continue to follow lytes dysphagia chopped diet #PPX DVT: SCD's #Dispo monitoring on floor, abx complete today plan for EGD tentatively on Tuesday per GI <China Mayorga - Last Filed: 05/03/19 13:36> - Note Progress Note: Seen and examined; please see resident note for further information. Agree with above as documented aside from as supplemented by myself. Personally verified all gonzalez historical details, PE findings, as well as all labs, imaging, and diagnostics. Discussed at length with resident and indicated consultants. No new issues; seen and cleared by pulmonary for the EGD. She has concerns about her functional capacity that are ongoing and that may or may not be founded in objective findings based on PT eval, clinical status. She is quite worried about her overall health and this was discussed at length with her friend who feels that she is appropriate to return back to her prior living arrangement. She has no other complaints at this time. 10 sys ROS done and negative aside from HPI NAD, AAO, resting in bed NC AT EOMI PERRLA HR wnl, s1/2+ Lungs CTAB, w/ sym exp NT ND +BS CN2-12 wnl, no fnd Normal mood, appropriate behavior, average insight Trachea midline, no JVD Upper GI series revealing large hiatal hernia and thickened gastric folds MBS reviewed CXR reviewed Admission CT noted Micro noted w/ ESBL+EC. A/P: Patient continues on IV abx and is pending scope; renal, ID, and GI continue to follow. Once off abx and done with scope can return to [facility]. Cleared by pulm for EGD due to underlying pulmonary illness. Pending procedure. Problems include: -Sepsis 2/2 ESBL+ E. Coli Complicated UTI (Continue abx; on carbepenem per ID for prolonged course, no issues noted. D/W specialty services.) -Recurring UTIs -Insomnia (improved after restarted home clonazepam) -Pericardial effusion (Clinical exam unchanged today. Per CV this is chronic small to moderate since at least April 2018, negative on PET scan which she had done for lung nodule. Prior echos have had equivocal findings of tamponade , as does current study but clinically she has not shown any instability or signs/ symptoms of tamponade. Currently with no clinical signs of active tamponade but will be vigilant. If clinically indicated will need drainage.) -LUH, Improved (followup with nephrology) -Chronic hypoxic respiratory failure secondary to COPD, JANETTE (Continue BDs, steroids per pulm. C/W O2 w/o changes today) -Acute on chronic anemia (Likely chronic disease with likely acute blood loss anemia component, pending EGD when clinically appropriate per GI services. No acute bleeding noted. Continue to trend CBC. 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 If worsens consider psych consult. Consider chronic medication tx with SNRI, etc.) -Multiple allergies (Unrelated groups such as latex, PNC, sulfa, opioids. Should discuss with pt and PCP if needed nonurgently) -Hx HTN (Controlled) Full Code <Alexander Turner - Last Filed: 05/04/19 07:46>
--- NOTE | 2019-05-03 14:14 | PN.GI ---
GI Progress Note Subjective: had a bowel movement, large gastric folds, large hiatal hernia - Objective Vital Signs: Vital Signs Temperature 98.0 F 05/03/19 10:00 Pulse Rate 112 H 05/03/19 10:00 Respiratory Rate 22 H 05/03/19 10:00 Blood Pressure 110/62 05/03/19 10:00 O2 Sat by Pulse Oximetry (%) 95 05/03/19 09:00 Constitutional: Well Nourished Eyes: Yes: Conjunctiva Clear HENT: Yes: Atraumatic, Tonsillar Exudate Cardiovascular: Yes: Regular Rate and Rhythm Respiratory: Yes: CTA Bilaterally ...Palpate: Yes: Soft. No: Firm/Rigid, Guarding, Hepatomegaly, Mass, Pulsatile Mass, Tenderness Labs: CBC, BMP 05/03/19 07:32 05/03/19 07:32 INR, PTT INR 1.04 (0.83-1.09) 04/24/19 06:08 Problem List - Problems (1) Nausea & vomiting Assessment/Plan: associated with uGIS R> for EGD cleared by pulmonary Code(s): R11.2 - NAUSEA WITH VOMITING, UNSPECIFIED
[2019-05-04] MEDS: ALBUTEROL SO4 2.5/IPRATROPIUM 0.5 INH SOL 3 ML VIAL.NEB. NEB SCH ×4 (07:50→20:27)
[2019-05-04] MEDS ORDERED: PT OWN MED DRAWER 7, Y5N ONE (10:04)
[2019-05-04] MEDS: LACTOBACILLUS ACIDOPHILUS 1 TABLET PO SCH (10:06)
[2019-05-04] MEDS: predniSONE 20 MG TABLET (UD) PO SCH (10:06)
[2019-05-04] MEDS: PANTOPRAZOLE 40 MG TABLET (FP) PO SCH (10:07)
[2019-05-04] MEDS: valACYclovir HCL 500 MG TABLET (FP) PO SCH ×2 (10:07→23:46)
[2019-05-04] MEDS: clonazePAM 0.5 MG TABLET PO SCH ×2 (10:07→23:46)
[2019-05-04] MEDS: CALCIUM 500MG/VIT-D 200 UNITS COMBO TABLET (FP) PO SCH (10:07)
--- NOTE | 2019-05-04 10:48 | PN ---
Progress Note, Physician Chief Complaint: seen and examined Denies CP or SOB beyond her baseline Feels better EGD is planned. - Current Medication List Current Medications: Active Medications Albuterol Sulfate (Ventolin 0.083% Nebulizer Soln -) 1 amp NEB Q4H PRN PRN Reason: SHORT OF BREATH/WHEEZING Last Admin: 04/29/19 04:50 Dose: 1 amp Albuterol/Ipratropium (Duoneb -) 1 amp NEB RQID [facility] Last Admin: 05/04/19 07:50 Dose: 1 amp Calcium Carbonate/Cholecalciferol (Os-Mikie 500+D -) 2 tab PO DAILY [facility] Last Admin: 05/04/19 10:07 Dose: 2 tab Clonazepam (Klonopin -) 0.5 mg PO DAILY [facility] Last Admin: 05/04/19 10:07 Dose: 0.5 mg Clonazepam (Klonopin -) 1 mg PO HS [facility] Last Admin: 05/03/19 21:13 Dose: 1 mg Guaifenesin (Robitussin Dm -) 10 ml PO Q6H PRN PRN Reason: COUGH Last Admin: 05/01/19 21:24 Dose: 10 ml Lactobacillus Acidophilus (Bacid -) 1 tab PO DAILY [facility] Last Admin: 05/04/19 10:06 Dose: 1 tab Ondansetron HCl (Zofran Injection) 4 mg IVPUSH Q6H PRN PRN Reason: NAUSEA AND/OR VOMITING Pantoprazole Sodium (Protonix -) 40 mg PO DAILY [facility] Last Admin: 05/04/19 10:07 Dose: 40 mg Prednisone (Deltasone -) 40 mg PO DAILY [facility] Last Admin: 05/04/19 10:06 Dose: 40 mg Sodium Chloride ([place] Nasal [place] -) 2 spray NS TID PRN PRN Reason: NASAL CONGESTION Last Admin: 04/26/19 11:39 Dose: 2 sprays Valacyclovir HCl (Valtrex -) 500 mg PO BID [facility] Last Admin: 05/04/19 10:07 Dose: 500 mg - Objective Vital Signs: Vital Signs Temperature 98 F 05/04/19 06:37 Pulse Rate 96 H 05/04/19 06:37 Respiratory Rate 20 05/04/19 06:37 Blood Pressure 104/56 L 05/04/19 06:37 O2 Sat by Pulse Oximetry (%) 95 05/03/19 21:00 Constitutional: Yes: No Distress Eyes: Yes: Conjunctiva Clear, EOM Intact Cardiovascular: Yes: Regular Rate and Rhythm Respiratory: Yes: Other (chronically decreased breath sounds bilaterally. No active wheezing.) Gastrointestinal: Yes: Soft (NT) Edema: No Neurological: Yes: Alert, Oriented ...Motor Strength: WNL Labs: CBC, BMP 05/03/19 07:32 05/03/19 07:32 INR, PTT INR 1.04 (0.83-1.09) 04/24/19 06:08 Laboratory Tests 05/03/19 05/03/19 07:32 07:32 WBC 7.9 Hgb 8.6 L Plt Count 279 Sodium 142 Potassium 4.3 BUN 23.2 H Creatinine 1.0 Magnesium 1.8 Assessment/Plan Assessment/Plan 73 yo female with HTN, HPL and hiatal hernia here with early sepsis-like clinical picture secondary to UTI, gram negative sepsis and ARF in setting of acute sepsis. Sepsis, gram neg bacteremia, gram neg UTI: -abx course completed as per ID Tachycardia: Sinus tach in setting of infection, anemia. Physiologic response. -Patient has no obstructive CAD on cath done in 02/2019, trop neg here -Tachycardia was response to underlying sepsis and is also intermittent due to her chronic severe COPD Pericardial effusion: - Chronic since at least April 2018, negative on PET scan which she had done for lung nodule. -This effusion has been small to moderate in size since 2018 and stable. -Prior echos have had equivocal findings of tamponade, as does current study but clinically she has not shown any instability or signs/ symptoms of tamponade. -no JVD, hemodynamically stable, tachy likely sec to sepsis/anxiety/anemia/ chronic COPD -Current study with similar size chronic effusion, and with indeterminate/ equivocal features for tamponade similar to study in January 2019. -Because this effusion is chronic and unchanged, absence of clear clinical tamponade and thrombocytopenia, advise close clinical and echo follow up -Would reserve drainage procedure if effusion enlarges or if clinical changes indicative more clearly indicative of tamponade physiology. LUH: -sec to sepsis -renal fxn improving COPD: -per pulm, hospitalist Anemia/guaiac + stool: -plan per PMD and GI -Although there are presently no absolute cardiac contraindications she would be considered at high risk for respiratory and cardiac complications which she understands and wishes to proceed.
--- NOTE | 2019-05-04 11:26 | PN ---
Progress Note (short form) - Note Progress Note: Hospitalist Medicine Slept well. No complaints. For tentative EGD Tuesday. d/w patient Vitals 05/04/19 06:37 Temperature 98 F Pulse Rate 96 H Respiratory 20 Rate Blood Pressure 104/56 L Physical Exam general: resting in bed. pleasant. in NAD HEENT: NCAT, PERRLA, dry cracked lips. ulcerated - improved pulm: decreased breath sounds throughout. no accessory m usage cardio: reg rate.S1, S2, RRR. no r/m/g abdomen: soft, no guarding, or rigidity. LE: no edema. 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 representative 2-12 grossly intact Laboratory Tests 05/03/19 05/03/19 07:32 07:32 WBC 7.9 Hgb 8.6 L Hct 25.7 L Sodium 142 Carbon Dioxide 34 H Anion Gap 7 L BUN 23.2 H Creatinine 1.0 Phosphorus 5.3 H Microbiology 04/23/19 10:30 Stool Salmonella/Shigella Culture - Final 04/23/19 10:30 Stool Escherichia coli 0157 Culture - Final NO GROWTH OF SALMONELLA OR SHIGELLA SPECIES OBTAINED NO GROWTH OF CAMPYLOBACTER SPECIES OBTAINED NO GROWTH OF YERSINIA SPECIES OBTAINED NO GROWTH OF VIBRIO SPECIES OBTAINED NO GROWTH OF E COLI 0157 OBTAINED 04/23/19 10:30 Stool Gram Stain - Final 04/22/19 18:00 Nares - Mrsa Screen - Right MRSA Screen - Final NO MRSA ISOLATED 04/22/19 18:00 Nares - Mrsa Screen - Left MRSA Screen - Final NO MRSA ISOLATED 04/22/19 10:30 Stool Clostridioides difficile Antigen - Final 04/22/19 10:30 Stool Clostridioides difficile Toxin Assay - Final 04/21/19 13:00 Blood - Peripheral Venous Blood Culture - Final Escherichia Coli Esbl Cook Fish Eggs 04/21/19 12:59 Blood - Peripheral Venous Blood Culture - Final NO GROWTH AFTER 5 DAYS INCUBATION 04/21/19 12:56 Urine - Urine Clean Catch Urine Culture - Final Gram Negative Jarret 04/23/19 06:15 Blood - Peripheral Venous Blood Culture - Preliminary NO GROWTH OBTAINED AFTER 96 HOURS, INCUBATION TO CONTINUE FOR 1 DAYS. 04/23/19 05:40 Blood - Peripheral Venous Blood Culture - Preliminary NO GROWTH OBTAINED AFTER 96 HOURS, INCUBATION TO CONTINUE FOR 1 DAYS. Imaging 04/21 CXR: no acute chest path 04/21 abdom sono: multiple hepatic cysts are noted (most prominent measuring 3.3cm in diameter, 1cm L and R hepatic lobe low attenuation foci as described on chest CTA on 01/2018 cannot be appreciated now). no gross mass lesion. liver mildly prominent. no calculi. pancreas partially obscured d/t overlapping bowel gas. no free intraperitoneal fluid seen. no R hydro. mild diffuse R renal cortical atrophy 04/21: CTAP: no acute path. partial imaging of pericardial effusion which is small to moderate volume. This finding is probably unchanged in comparison to past chest CT. moderate to large hiatal hernia. multiple hepatic cysts described. small L hepatic lobe cyst demonstrates interval development of mildly increased internal density in comparison to 2019, probably representing debris and less likely path. Multilevel thoracolumbar vertebral body compression fractures. L basilar discoid atelectasis, L posterior basilar suture line. Very small portion of lung parenchyma. 04/22: CXR : developed atelectatic and infiltrative changes more at the left base 04/24: Upper GI series: esophageal dysmotility, large sliding hiatal hernia, mild thickening of gastric folds. gastritis cannot be excluded. no evidence of gastric outlet obstruction or acute/chronic peptic ulcer dz. 04/26: MBS: moderate sized hiatus hernia 05/02: U/S: hepatomegaly w/ multiple hepatic cysts Assessment/Plan 73 y/o F with PMH COPD on 2L 02, JANETTE on CPAP, h/o partial lung resection - carcinoid, GERD, prior hx MRSA who presented with hypotension, N/V, coffee ground emesis and LUH. #COPD on 2L 02 #CPAP use -c/w duonebs PRN -c/w CPAP -on prednisone 40mg PO qd. c/w slow taper eventual taper to home dose: alternating 5 and 10mg every other day -Pulm consulted: Dr. Cummings. #N/V/D, coffee ground emesis, possible 2/2 gastric outlet obstruction -c/t monitor H/H; has been stable -asa is held; can restart after EGD if ok w/GI -on protonix 40 mg PO qd -UGI series: reveals esophageal dysmotility with large, sliding hiatal hernia -d/w GI: EGD tentatively on Tuesday, pulm optimized -GI: Dr. Meier #Chronic pericardial effusion -since 2018 -no JVD, hemodynamically stable -if develops tamponade then will need drainage #gram (-) sepsis 2/2 UTI -coverage changed to ertapenem (04/25) from tonio. completed 03/15 abx. ESBL, PCN / sulfa allergy -on bacid. -recent cx (-) -isolation precautions: past hx MRSA, now ESBL -ID on board: Dr. Rojas #oral HSV -c/w valtrex #LUH - resolved #anxiety -home klonopin 1mg qHS qd -0.5mg qAM -at baseline per daughter #hyperkalemia- resolved #F/E/N off IVF continue to follow lytes dysphagia chopped diet #PPX DVT: SCD's #Dispo completed abx plan for EGD tentatively on Tuesday per GI from [facility] <China Mayorga - Last Filed: 05/04/19 12:42> - Note Progress Note: Seen and examined; please see resident note for further information. Agree with above as documented aside from as supplemented by myself. Personally verified all gonzalez historical details, PE findings, as well as all labs, imaging, and diagnostics. Discussed at length with resident and indicated consultants. Still has reservations about EGD without family being present. No bleeding. in good spirits. Agrees her anxiety and sleep is much improved. Though no more objective findings of improvement as was improved she agrees her breathing is someewhat better. 10 sys ROS done and negative aside from HPI NAD, AAO, resting in bed NC AT EOMI PERRLA HR wnl, s1/2+ Lungs CTAB, w/ sym exp NT ND +BS CN2-12 wnl, no fnd Normal mood, appropriate behavior, average insight Trachea midline, no JVD Upper GI series revealing large hiatal hernia and thickened gastric folds MBS reviewed CXR reviewed Admission CT noted Micro noted w/ ESBL+EC. A/P: Patient continues on IV abx and is pending scope; renal, ID, and GI continue to follow. Once off abx and done with scope can return to [facility]. Cleared by pulm for EGD due to underlying pulmonary illness. Pending procedure. Problems include: -Sepsis 2/2 ESBL+ E. Coli Complicated UTI (Continue abx; on carbepenem per ID for prolonged course, no issues noted. D/W specialty services.) -Recurring UTIs -Insomnia (improved after restarted home clonazepam) -Pericardial effusion (Clinical exam unchanged today. Per CV this is chronic small to moderate since at least April 2018, negative on PET scan which she had done for lung nodule. Prior echos have had equivocal findings of tamponade , as does current study but clinically she has not shown any instability or signs/ symptoms of tamponade. Currently with no clinical signs of active tamponade but will be vigilant. If clinically indicated will need drainage.) -LUH, Improved (followup with nephrology) -Chronic hypoxic respiratory failure secondary to COPD, JANETTE (Continue BDs, steroids per pulm. C/W O2 w/o changes today) -Acute on chronic anemia (Likely chronic disease with likely acute blood loss anemia component, pending EGD when clinically appropriate per GI services. No acute bleeding noted. Continue to trend CBC. 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 If worsens consider psych consult. Consider chronic medication tx with SNRI, etc.) -Multiple allergies (Unrelated groups such as latex, PNC, sulfa, opioids. Should discuss with pt and PCP if needed nonurgently) -Hx HTN (Controlled) Full Code <Alexander Turner - Last Filed: 05/07/19 01:27>
--- NOTE | 2019-05-04 11:28 | PN ---
Progress Note (short form) - Note Progress Note: PULMONARY RESTING COMFORTABLY VSS/AFEBRILE Constitutional: Yes: Well Nourished, Calm Eyes: Yes: WNL HENT: Yes: WNL Neck: Yes: WNL Cardiovascular: Yes: Regular Rate and Rhythm, S1, S2 Respiratory: Yes: Rhonchi, Wheezes (SCATTERED WHEEZES AND RHONCHI) Gastrointestinal: Yes: Normal Bowel Sounds, Soft Extremities: Yes: WNL Edema: No Labs: NOTED A/P UTI Gram Negative Bacteremia resolved Severe Sepsis Acute Kidney Injury Lactic Acidosis resolved Anemia/Thrombocytopenia COPD stable Chronic Hypoxic Respiratory Failure Obstructive Sleep Apnea H/O Lung ca carcinoid - steroids slow taper - No objection for proceeding with GI endoscopic evaluation - Continue antibiotics per ID - monitor urine output, creatinine - inhaled bronchodilators - O2 to keep SpO2 >90% - CPAP at night - monitor CBC - DVT prophylaxis Leila BROWER MD
[2019-05-05] MEDS: ALBUTEROL SO4 2.5/IPRATROPIUM 0.5 INH SOL 3 ML VIAL.NEB. NEB SCH ×4 (07:30→20:50)
[2019-05-05 08:33] LABS: BASO % 0.2 % (0-2.0); EOS % 1.3 % (0-4.5); HEMOGLOBIN 8.8 GM/dL (10.7-15.3); LYMPH % 15.3 % (8-40); MCH 30.2 pg (25.7-33.7); MCHC 32.6 g/dl (32.0-36.0); MEAN CELL VOLUME 92.6 fl (80-96); MEAN PLT VOLUME 7.5 fl (7.5-11.1); MONO % 8.1 % (3.8-10.2); NEUT % 75.1 % (42.8-82.8); PLATELET COUNT 304 K/MM3 (134-434); RBC 2.92 M/mm3 (3.60-5.2); RDW 14.5 % (11.6-15.6); WHITE BLOOD COUNT 6.8 K/mm3 (4.0-10.0)
[2019-05-05 08:54] LABS: BLOOD UREA NITROGEN 29.6 mg/dL (7-18); CREATININE 1.1 mg/dL (0.55-1.3); MAGNESIUM 1.9 mg/dL (1.8-2.4); PHOSPHOROUS 4.5 mg/dL (2.5-4.9); POTASSIUM 3.8 mmol/L (3.5-5.1)
--- NOTE | 2019-05-05 09:37 | PN ---
Physical Exam: SUBJECTIVE: Patient seen and examined; no new complaints. No bleeding, subjective SOB continues to improve. No CP. 10 sys ROS done and negative aside from HPI OBJECTIVE: Vital Signs Period Temp Pulse Resp BP Sys/Cárdenas Pulse Ox Last 24 Hr 97.7 F-98.3 F 86-124 20-20 108-140/52-74 97-98 GENERAL: The patient is awake, alert, and fully oriented, in no acute distress. HEAD: Normal with no signs of trauma. EYES: PERRL, extraocular movements intact, sclera anicteric, conjunctiva clear. No ptosis. ENT: Ears normal, nares patent, oropharynx clear without exudates, moist mucous membranes. NECK: Trachea midline, full range of motion, supple. LUNGS: Breath sounds equal, clear to auscultation bilaterally, no wheezes, no crackles, no accessory muscle use. HEART: Regular rate and rhythm, S1, S2 without murmur, rub or gallop. ABDOMEN: Soft, nontender, nondistended, normoactive bowel sounds, no guarding, no rebound, no hepatosplenomegaly, no masses. EXTREMITIES: 2+ pulses, warm, well-perfused, no edema. NEUROLOGICAL: Cranial nerves II through XII grossly intact. Normal speech, gait not observed. PSYCH: Normal mood, normal affect. SKIN: Warm, dry, normal turgor, no rashes or lesions noted Laboratory Results - last 24 hr 05/05/19 05/05/19 08:00 08:00 WBC 6.8 RBC 2.92 L Hgb 8.8 L Hct 27.0 L MCV 92.6 MCH 30.2 MCHC 32.6 RDW 14.5 Plt Count 304 MPV 7.5 Absolute Neuts (auto) 5.1 Neutrophils % 75.1 Lymphocytes % 15.3 D Monocytes % 8.1 Eosinophils % 1.3 D Basophils % 0.2 Nucleated RBC % 0 Sodium 141 Potassium 3.8 Chloride 102 Carbon Dioxide 35 H Anion Gap 4 L BUN 29.6 H Creatinine 1.1 Est GFR (CKD-EPI)AfAm 57.68 Est GFR (CKD-EPI)NonAf 49.77 Random Glucose 96 Calcium 9.0 Phosphorus 4.5 Magnesium 1.9 Active Medications Generic Name Dose Route Start Last Admin Trade Name Freq PRN Reason Stop Dose Admin Albuterol Sulfate 1 amp 04/24/19 10:21 04/29/19 04:50 Ventolin 0.083% Nebulizer Soln - NEB 1 amp Q4H PRN Administration SHORT OF BREATH/WHEEZING Albuterol/Ipratropium 1 amp 04/24/19 12:00 05/05/19 07:30 Duoneb - NEB 1 amp RQID FABIOLA Administration Calcium Carbonate/Cholecalciferol 2 tab 04/25/19 20:00 05/04/19 10:07 Os-Mikie 500+D - PO 2 tab DAILY FABIOLA Administration Clonazepam 0.5 mg 05/01/19 10:00 05/04/19 10:07 Klonopin - PO 0.5 mg DAILY FABIOLA Administration Clonazepam 1 mg 05/01/19 22:00 05/04/19 23:46 Klonopin - PO 1 mg HS FABIOLA Administration Guaifenesin 10 ml 04/24/19 09:17 05/01/19 21:24 Robitussin Dm - PO 10 ml Q6H PRN Administration COUGH Lactobacillus Acidophilus 1 tab 04/28/19 10:00 05/04/19 10:06 Bacid - PO 1 tab DAILY FABIOLA Administration Ondansetron HCl 4 mg 04/24/19 09:17 Zofran Injection IVPUSH Q6H PRN NAUSEA AND/OR VOMITING Pantoprazole Sodium 40 mg 04/27/19 10:00 05/04/19 10:07 Protonix - PO 40 mg DAILY FABIOLA Administration Prednisone 40 mg 05/01/19 10:00 05/04/19 10:06 Deltasone - PO 40 mg DAILY FABIOLA Administration Sodium Chloride 2 spray 04/26/19 10:09 04/26/19 11:39 [place]al [place] - NS 2 sprays TID PRN Administration NASAL CONGESTION Valacyclovir HCl 500 mg 04/24/19 22:00 05/04/19 23:46 Valtrex - PO 500 mg BID FABIOLA Administration No new diagnostics A/P: Patient continues on IV abx and is pending scope; renal, ID, and GI continue to follow. Once off abx and done with scope can return to [facility]. Cleared by pulm for EGD due to underlying pulmonary illness. Pending procedure. Problems include: -Sepsis 2/2 ESBL+ E. Coli Complicated UTI (Continue abx; on carbepenem per ID for prolonged course, no issues noted. D/W specialty services.) -Recurring UTIs -Insomnia (improved after restarted home clonazepam) -Pericardial effusion (Clinical exam unchanged today. Per CV this is chronic small to moderate since at least April 2018, negative on PET scan which she had done for lung nodule. Prior echos have had equivocal findings of tamponade , as does current study but clinically she has not shown any instability or signs/ symptoms of tamponade. Currently with no clinical signs of active tamponade but will be vigilant. If clinically indicated will need drainage.) -LUH, Improved (followup with nephrology) -Chronic hypoxic respiratory failure secondary to COPD, JANETTE (Continue BDs, steroids per pulm. C/W O2 w/o changes today) -Acute on chronic anemia (Likely chronic disease with likely acute blood loss anemia component, pending EGD when clinically appropriate per GI services. No acute bleeding noted. Continue to trend CBC. 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 If worsens consider psych consult. Consider chronic medication tx with SNRI, etc.) -Multiple allergies (Unrelated groups such as latex, PNC, sulfa, opioids. Should discuss with pt and PCP if needed nonurgently) -Hx HTN (Controlled) Full Code Visit type - Emergency Visit Emergency Visit: Yes ED Registration Date: 04/21/19 Care time: The patient presented to the Emergency Department on the above date and was hospitalized for further evaluation of their emergent condition. - New Patient This patient is new to me today: No - Critical Care Critical Care patient: No
[2019-05-05] MEDS: guaiFENesin/D-METHORPHAN HB 10 ML UNIT-DOSE CUPS PO PRN (10:01)
[2019-05-05] MEDS: CALCIUM 500MG/VIT-D 200 UNITS COMBO TABLET (FP) PO SCH (10:01)
[2019-05-05] MEDS: valACYclovir HCL 500 MG TABLET (FP) PO SCH ×2 (10:02→21:33)
[2019-05-05] MEDS: clonazePAM 0.5 MG TABLET PO SCH ×2 (10:02→21:33)
[2019-05-05] MEDS: PANTOPRAZOLE 40 MG TABLET (FP) PO SCH (10:02)
[2019-05-05] MEDS: LACTOBACILLUS ACIDOPHILUS 1 TABLET PO SCH (10:02)
[2019-05-05] MEDS: predniSONE 20 MG TABLET (UD) PO SCH (10:02)
[2019-05-06] MEDS: ALBUTEROL SO4 2.5/IPRATROPIUM 0.5 INH SOL 3 ML VIAL.NEB. NEB SCH ×4 (07:30→20:10)
--- NOTE | 2019-05-06 09:42 | PN ---
Progress Note, Physician Chief Complaint: preop History of Present Illness: last night awoke while had cpap on, noted mild pain across L chest. no radiation or assctd diaph, LH. ? lasted only few seconds she's not sure--went back to sleep without much delay , pain gone by this AM when awoke around 8:00 sob c/w her copd sx's intermittent for past several days--now much improved but not completely resolved. no wheezing no palp, syncope ex cigs - Current Medication List Current Medications: Active Medications Albuterol Sulfate (Ventolin 0.083% Nebulizer Soln -) 1 amp NEB Q4H PRN PRN Reason: SHORT OF BREATH/WHEEZING Last Admin: 04/29/19 04:50 Dose: 1 amp Albuterol/Ipratropium (Duoneb -) 1 amp NEB RQID [facility] Last Admin: 05/06/19 07:30 Dose: 1 amp Calcium Carbonate/Cholecalciferol (Os-Mikie 500+D -) 2 tab PO DAILY [facility] Last Admin: 05/05/19 10:01 Dose: 2 tab Clonazepam (Klonopin -) 0.5 mg PO DAILY [facility] Last Admin: 05/05/19 10:02 Dose: 0.5 mg Clonazepam (Klonopin -) 1 mg PO HS [facility] Last Admin: 05/05/19 21:33 Dose: 1 mg Guaifenesin (Robitussin Dm -) 10 ml PO Q6H PRN PRN Reason: COUGH Last Admin: 05/05/19 10:01 Dose: 10 ml Lactobacillus Acidophilus (Bacid -) 1 tab PO DAILY [facility] Last Admin: 05/05/19 10:02 Dose: 1 tab Ondansetron HCl (Zofran Injection) 4 mg IVPUSH Q6H PRN PRN Reason: NAUSEA AND/OR VOMITING Pantoprazole Sodium (Protonix -) 40 mg PO DAILY [facility] Last Admin: 05/05/19 10:02 Dose: 40 mg Prednisone (Deltasone -) 30 mg PO DAILY [facility] Sodium Chloride ([place] Nasal [place] -) 2 spray NS TID PRN PRN Reason: NASAL CONGESTION Last Admin: 04/26/19 11:39 Dose: 2 sprays Valacyclovir HCl (Valtrex -) 500 mg PO BID [facility] Last Admin: 05/05/19 21:33 Dose: 500 mg - Objective Vital Signs: Vital Signs Temperature 97.6 F 05/06/19 06:00 Pulse Rate 92 H 05/06/19 06:00 Respiratory Rate 20 05/06/19 06:00 Blood Pressure 126/76 05/06/19 06:00 O2 Sat by Pulse Oximetry (%) 99 05/06/19 08:26 Constitutional: Yes: No Distress, Calm Eyes: No: Sclera Icterus HENT: No: Nasal Congestion Cardiovascular: Yes: Regular Rate and Rhythm, S1, S2, Other (PMI non diplaced). No: JVD, Gallop, Murmur, Rub Respiratory: Yes: CTA Bilaterally (decr sounds diffusely). No: Accessory Muscle Use, Rales, Wheezes Gastrointestinal: Yes: Normal Bowel Sounds, Soft. No: Tenderness Musculoskeletal: Yes: Other (No kyphosis) Extremities: No: Cold, Cyanosis Edema: No Integumentary: No: Jaundice Neurological: Yes: Alert, Oriented (x3) Psychiatric: No: Agitated Labs: CBC, BMP 05/05/19 08:00 05/05/19 08:00 INR, PTT INR 1.04 (0.83-1.09) 04/24/19 06:08 Assessment/Plan Echo 01/22: nl LV/RV. mild AI, mod MR, nl RVSP. moderate peric effusion inconclusive for cardiac tamponade Echo 04/24: nl LV/RV. valves WNL. [id number] effusion. "RA collapse in mid diastole" (atrial contraction??) 73 yo female with HTN, HPL and hiatal hernia here with early sepsis-like clinical picture secondary to UTI, gram negative sepsis and ARF in setting of acute sepsis. Sepsis, gram neg bacteremia, gram neg UTI: -abx course completed as per ID Tachycardia: -Sinus tach in setting of infection, anemia. Physiologic response, possibly RTC albuterol nebs--trend improving -Patient has no obstructive CAD on cath done in 02/2019, trop neg here atypical CP: -occurred last night, brief duration--fell back asleep. -no features suggestive of angina, pt thinks was related to muscular work of breathing due to bipap use at the time -recent cath with no obstructive dz -remains cp-free -check ekg, troponins now (currently >6-8 hrs from time of cp episode) -if ekg and enzymes unremarkable, no repeat ischemia w/u indicated Pericardial effusion: -Chronic since at least April 2018, negative on PET scan which she had done for lung nodule. -This effusion has been small to moderate in size since 2018 and stable. -Prior echos have had equivocal findings of tamponade, as does current study but clinically she has not shown any instability or signs/ symptoms of tamponade. -Because this effusion is chronic and unchanged, absence of clear clinical tamponade and thrombocytopenia, advise close clinical and echo follow up -Would reserve drainage procedure if effusion enlarges or if clinical changes indicative more clearly indicative of tamponade physiology. COPD: -sx's improving -per pulm, hospitalist Anemia/guaiac + stool, preop CV eval: -plan per PMD and GI -Revised CV Risk Index = 0. no s/sx of active CAD or CHF. -chronic, stable pericardial effusion with no clinical tamponade--as above -medically optimized -episode of atyp CP last night, as described above--if ekg and troponin unremarkable today, no further w/u indicated (benign cath 02/22) -she is at high risk for CV complications of GI scopes, however there are no absolute cardiac contraindications, and no further optimization is indicated. pt previously disc'd risk of procedures and stated that she wanted to proceed
[2019-05-06] MEDS: LACTOBACILLUS ACIDOPHILUS 1 TABLET PO SCH (10:13)
[2019-05-06] MEDS: predniSONE 10 MG TABLET (UD) PO SCH (10:13)
[2019-05-06] MEDS: CALCIUM 500MG/VIT-D 200 UNITS COMBO TABLET (FP) PO SCH (10:13)
[2019-05-06] MEDS: PANTOPRAZOLE 40 MG TABLET (FP) PO SCH (10:13)
[2019-05-06] MEDS: valACYclovir HCL 500 MG TABLET (FP) PO SCH ×2 (10:13→21:56)
[2019-05-06] MEDS: clonazePAM 0.5 MG TABLET PO SCH ×2 (10:13→21:56)
--- NOTE | 2019-05-06 12:54 | PN ---
Progress Note (short form) - Note Progress Note: PULMONARY RESTING COMFORTABLY VSS/AFEBRILE Constitutional: Yes: Well Nourished, Calm Eyes: Yes: WNL HENT: Yes: WNL Neck: Yes: WNL Cardiovascular: Yes: Regular Rate and Rhythm, S1, S2 Respiratory: Yes: Rhonchi, Wheezes (SCATTERED WHEEZES AND RHONCHI) Gastrointestinal: Yes: Normal Bowel Sounds, Soft Extremities: Yes: WNL Edema: No Labs: NOTED Cardio note reviewed A/P UTI Gram Negative Bacteremia resolved Severe Sepsis Acute Kidney Injury Lactic Acidosis resolved Anemia/Thrombocytopenia COPD stable Chronic Hypoxic Respiratory Failure Obstructive Sleep Apnea H/O Lung ca carcinoid - steroids slow taper - No objection for proceeding with GI endoscopic evaluation - Continue antibiotics per ID - monitor urine output, creatinine - inhaled bronchodilators - O2 to keep SpO2 >90% - CPAP at night - monitor CBC - DVT prophylaxis Leila BROWER MD
--- NOTE | 2019-05-07 01:27 | PN ---
Physical Exam: SUBJECTIVE: Patient seen and examined; patient informs me that she informed the night team that she had some chest pain overnight. No concerning changes on EKG. She relays that she believes that this was related to anxiety to me when we spoke which could explain why she didn't have a troponin checked at the time. As was atypical and non-recurring deferring need for further testing to CV but will discuss with resident (? if she relayed anxiety with this?). She is resting comfortably in bed without complaints this morning. 10 sys ROS done and negative. OBJECTIVE: Vital Signs Period Temp Pulse Resp BP Sys/Cárdenas Pulse Ox Last 24 Hr 97.6 F-98.8 F 60-119 20-22 96-126/46-76 97-99 GENERAL: The patient is awake, alert, and fully oriented, in no acute distress. HEAD: Normal with no signs of trauma. EYES: PERRL, extraocular movements intact, sclera anicteric, conjunctiva clear. No ptosis. ENT: Ears normal, nares patent, oropharynx clear without exudates, moist mucous membranes. NECK: Trachea midline, full range of motion, supple. LUNGS: Breath sounds equal, clear to auscultation bilaterally, no wheezes, no crackles, no accessory muscle use. HEART: Regular rate and rhythm, S1, S2 without murmur, rub or gallop. ABDOMEN: Soft, nontender, nondistended, normoactive bowel sounds, EXTREMITIES: 2+ pulses, warm, well-perfused, no edema. NEUROLOGICAL: Cranial nerves II through XII grossly intact. Normal speech PSYCH: Normal mood, normal affect. SKIN: Warm, dry, normal turgor, no rashes or lesions noted Laboratory Results - last 24 hr 05/06/19 11:35 Creatine Kinase 15 L Troponin I < 0.02 Active Medications Generic Name Dose Route Start Last Admin Trade Name Freq PRN Reason Stop Dose Admin Albuterol Sulfate 1 amp 04/24/19 10:21 04/29/19 04:50 Ventolin 0.083% Nebulizer Soln - NEB 1 amp Q4H PRN Administration SHORT OF BREATH/WHEEZING Albuterol/Ipratropium 1 amp 04/24/19 12:00 05/06/19 20:10 Duoneb - NEB 1 amp RQID FABIOLA Administration Calcium Carbonate/Cholecalciferol 2 tab 04/25/19 20:00 05/06/19 10:13 Os-Mikie 500+D - PO 2 tab DAILY FABIOLA Administration Clonazepam 0.5 mg 05/01/19 10:00 05/06/19 10:13 Klonopin - PO 0.5 mg DAILY FABIOLA Administration Clonazepam 1 mg 05/01/19 22:00 05/06/19 21:56 Klonopin - PO 1 mg HS FABIOLA Administration Guaifenesin 10 ml 04/24/19 09:17 05/05/19 10:01 Robitussin Dm - PO 10 ml Q6H PRN Administration COUGH Lactobacillus Acidophilus 1 tab 04/28/19 10:00 05/06/19 10:13 Bacid - PO 1 tab DAILY FABIOLA Administration Ondansetron HCl 4 mg 04/24/19 09:17 Zofran Injection IVPUSH Q6H PRN NAUSEA AND/OR VOMITING Pantoprazole Sodium 40 mg 04/27/19 10:00 05/06/19 10:13 Protonix - PO 40 mg DAILY FABIOLA Administration Prednisone 30 mg 05/05/19 10:46 05/06/19 10:13 Deltasone - PO 30 mg DAILY FABIOLA Administration Sodium Chloride 2 spray 04/26/19 10:09 04/26/19 11:39 [place] Nasal [place] - NS 2 sprays TID PRN Administration NASAL CONGESTION Valacyclovir HCl 500 mg 04/24/19 22:00 05/06/19 21:56 Valtrex - PO 500 mg BID FABIOLA Administration EKG reviewed; noted she was not moved to [facility] or placed on continuous monitoring. ASSESSMENT/PLAN: Problems include: *Atypical CP: Defer need for further testing. Negative EKG. Not clear why no trop or documentation from overnight. Is removed from initial episode with no subsequent occurances. She has several etiologies including ACS, pericardial effusion, etc. that need to be considered) -Sepsis 2/2 ESBL+ E. Coli Complicated UTI (Continue abx; on carbepenem per ID for prolonged course, no issues noted. D/W specialty services.) -Recurring UTIs -Insomnia (improved after restarted home clonazepam) -Pericardial effusion (Clinical exam unchanged today. Per CV this is chronic small to moderate since at least April 2018, negative on PET scan which she had done for lung nodule. Prior echos have had equivocal findings of tamponade , as does current study but clinically she has not shown any instability or signs/ symptoms of tamponade. Currently with no clinical signs of active tamponade but will be vigilant. If clinically indicated will need drainage.) -LUH, Improved (followup with nephrology) -Chronic hypoxic respiratory failure secondary to COPD, JANETTE (Continue BDs, steroids per pulm. C/W O2 w/o changes today) -Acute on chronic anemia (Likely chronic disease with likely acute blood loss anemia component, pending EGD when clinically appropriate per GI services. No acute bleeding noted. Continue to trend CBC. 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 If worsens consider psych consult. Consider chronic medication tx with SNRI, etc.) -Multiple allergies (Unrelated groups such as latex, PNC, sulfa, opioids. Should discuss with pt and PCP if needed nonurgently) -Hx HTN (Controlled) Visit type - Emergency Visit Emergency Visit: Yes ED Registration Date: 04/21/19 Care time: The patient presented to the Emergency Department on the above date and was hospitalized for further evaluation of their emergent condition. - New Patient This patient is new to me today: No - Critical Care Critical Care patient: No
[2019-05-07 06:47] VITALS: TEMP 97.9
[2019-05-07] MEDS: ALBUTEROL SO4 2.5/IPRATROPIUM 0.5 INH SOL 3 ML VIAL.NEB. NEB SCH ×3 (07:32→16:03)
--- NOTE | 2019-05-07 10:30 | PN ---
Progress Note (short form) - Note Progress Note: PULMONARY Denies shortness of breath, cough or wheezing. Vital Signs Period Temp Pulse Resp BP Sys/Cárdenas Pulse Ox Last 24 Hr 97.9 F-98.8 F 60-119 20-22 96-122/46-64 93 Gen: NAD at rest Heart: RRR Lung: decreased breath sounds at the bases Abd: soft, nontender Ext: no edema CBC, BMP 05/05/19 08:00 05/05/19 08:00 Active Medications Albuterol Sulfate (Ventolin 0.083% Nebulizer Soln -) 1 amp NEB Q4H PRN PRN Reason: SHORT OF BREATH/WHEEZING Last Admin: 04/29/19 04:50 Dose: 1 amp Albuterol/Ipratropium (Duoneb -) 1 amp NEB RQID [facility] Last Admin: 05/07/19 07:32 Dose: 1 amp Calcium Carbonate/Cholecalciferol (Os-Mikie 500+D -) 2 tab PO DAILY [facility] Last Admin: 05/06/19 10:13 Dose: 2 tab Clonazepam (Klonopin -) 0.5 mg PO DAILY [facility] Last Admin: 05/06/19 10:13 Dose: 0.5 mg Clonazepam (Klonopin -) 1 mg PO HS [facility] Last Admin: 05/06/19 21:56 Dose: 1 mg Guaifenesin (Robitussin Dm -) 10 ml PO Q6H PRN PRN Reason: COUGH Last Admin: 05/05/19 10:01 Dose: 10 ml Lactobacillus Acidophilus (Bacid -) 1 tab PO DAILY [facility] Last Admin: 05/06/19 10:13 Dose: 1 tab Ondansetron HCl (Zofran Injection) 4 mg IVPUSH Q6H PRN PRN Reason: NAUSEA AND/OR VOMITING Pantoprazole Sodium (Protonix -) 40 mg PO DAILY [facility] Last Admin: 05/06/19 10:13 Dose: 40 mg Prednisone (Deltasone -) 30 mg PO DAILY [facility] Last Admin: 05/06/19 10:13 Dose: 30 mg Sodium Chloride ([place] Nasal [place] -) 2 spray NS TID PRN PRN Reason: NASAL CONGESTION Last Admin: 04/26/19 11:39 Dose: 2 sprays Valacyclovir HCl (Valtrex -) 500 mg PO BID [facility] Last Admin: 05/06/19 21:56 Dose: 500 mg A/P UTI Gram Negative Bacteremia Severe Sepsis resolving Acute Kidney Injury improving Lactic Acidosis resolved Anemia/Thrombocytopenia COPD Chronic Hypoxic Respiratory Failure Obstructive Sleep Apnea r/o Gastric Outlet Obstruction - continue antibiotics - monitor urine output, creatinine - inhaled bronchodilators - prednisone taper - O2 to keep SpO2 >90% - CPAP at night - monitor CBC - DVT prophylaxis - no pulmonary contraindications for EGD
--- NOTE | 2019-05-07 10:39 | EKG ---
Test Reason : Blood Pressure : / mmHG Vent. Rate : 096 BPM Atrial Rate : 096 BPM P-R Int : 122 ms QRS Dur : 074 ms QT Int : 340 ms P-R-T Axes : 075 036 063 degrees QTc Int : 429 ms NORMAL SINUS RHYTHM NONSPECIFIC T WAVE ABNORMALITY ABNORMAL ECG WHEN COMPARED WITH ECG OF 21-APR-2019 13:02, Confirmed by DAVID BARRIENTOS MD ([id number]) on 05/07/2019 10:39:19 AM Referred By: Renetta JOHNSON Confirmed By:DAVID BARRIENTOS MD
--- NOTE | 2019-05-07 10:40 | PN ---
Progress Note, Physician Chief Complaint: preop History of Present Illness: still periodic pain in localized areas of L and R pectoral--hurts when she touches it (reproducible) sob stable, not severe not coughing much no palp, syncope - Current Medication List Current Medications: Active Medications Albuterol Sulfate (Ventolin 0.083% Nebulizer Soln -) 1 amp NEB Q4H PRN PRN Reason: SHORT OF BREATH/WHEEZING Last Admin: 04/29/19 04:50 Dose: 1 amp Albuterol/Ipratropium (Duoneb -) 1 amp NEB RQID [facility] Last Admin: 05/07/19 07:32 Dose: 1 amp Calcium Carbonate/Cholecalciferol (Os-Mikie 500+D -) 2 tab PO DAILY [facility] Last Admin: 05/06/19 10:13 Dose: 2 tab Clonazepam (Klonopin -) 0.5 mg PO DAILY [facility] Last Admin: 05/06/19 10:13 Dose: 0.5 mg Clonazepam (Klonopin -) 1 mg PO HS [facility] Last Admin: 05/06/19 21:56 Dose: 1 mg Guaifenesin (Robitussin Dm -) 10 ml PO Q6H PRN PRN Reason: COUGH Last Admin: 05/05/19 10:01 Dose: 10 ml Lactobacillus Acidophilus (Bacid -) 1 tab PO DAILY [facility] Last Admin: 05/06/19 10:13 Dose: 1 tab Ondansetron HCl (Zofran Injection) 4 mg IVPUSH Q6H PRN PRN Reason: NAUSEA AND/OR VOMITING Pantoprazole Sodium (Protonix -) 40 mg PO DAILY [facility] Last Admin: 05/06/19 10:13 Dose: 40 mg Prednisone (Deltasone -) 30 mg PO DAILY [facility] Last Admin: 05/06/19 10:13 Dose: 30 mg Sodium Chloride ([place] Nasal Biddle -) 2 spray NS TID PRN PRN Reason: NASAL CONGESTION Last Admin: 04/26/19 11:39 Dose: 2 sprays Valacyclovir HCl (Valtrex -) 500 mg PO BID [facility] Last Admin: 05/06/19 21:56 Dose: 500 mg - Objective Vital Signs: Vital Signs Temperature 97.9 F 05/07/19 06:45 Pulse Rate 93 H 05/07/19 06:45 Respiratory Rate 20 05/07/19 06:45 Blood Pressure 122/64 12/02/19 06:45 O2 Sat by Pulse Oximetry (%) 93 L 05/07/19 07:31 Constitutional: Yes: Well Nourished, No Distress, Calm Cardiovascular: Yes: Regular Rate and Rhythm, S1, S2, Other (localized tenderness anterior chest wall--reproduces her pain). No: Gallop, Murmur Respiratory: Yes: Regular, CTA Bilaterally (decr sounds diffusely). No: Accessory Muscle Use, Rales, Wheezes Extremities: No: Cold Edema: No Neurological: Yes: Alert, Oriented Psychiatric: No: Agitated Labs: CBC, BMP 05/05/19 08:00 05/05/19 08:00 INR, PTT INR 1.04 (0.83-1.09) 04/24/19 06:08 Assessment/Plan Echo 01/22: nl LV/RV. mild AI, mod MR, nl RVSP. moderate peric effusion inconclusive for cardiac tamponade Echo 04/24: nl LV/RV. valves WNL. [id number] effusion. "RA collapse in mid diastole" (atrial contraction??) 73 yo female with HTN, HPL and hiatal hernia here with early sepsis-like clinical picture secondary to UTI, gram negative sepsis and ARF in setting of acute sepsis. Sepsis, gram neg bacteremia, gram neg UTI: -abx course completed as per ID Tachycardia: -Sinus tach in setting of infection, anemia. Physiologic response, possibly RTC albuterol nebs--trend improving -Patient has no obstructive CAD on cath done in 02/2019, trop neg here atypical CP: -occurred overnight , brief duration--fell back asleep. -no features suggestive of angina, pt thinks was related to muscular work of breathing due to bipap use at the time -recent cath with no obstructive dz -ECG no changes vs prior (septal ST-Ts), trop negative--no repeat ischemia w/u indicated -today developed reproducible pain, likely mskel. Pericardial effusion: -Chronic since at least April 2018, negative on PET scan which she had done for lung nodule. -This effusion has been small to moderate in size since 2018 and stable. -Prior echos have had equivocal findings of tamponade, as does current study but clinically she has not shown any instability or signs/ symptoms of tamponade. -Because this effusion is chronic and unchanged, absence of clear clinical tamponade and thrombocytopenia, advise close clinical and echo follow up -Would reserve drainage procedure if effusion enlarges or if clinical changes indicative more clearly indicative of tamponade physiology. COPD: -sx's improving -per pulm, hospitalist Anemia/guaiac + stool, preop CV eval: -plan per PMD and GI -Revised CV Risk Index = 0. no s/sx of active CAD or CHF. -chronic, stable pericardial effusion with no clinical tamponade--as above -medically optimized -she is at high risk for CV complications of GI scopes, however there are no absolute cardiac contraindications, and no further optimization is indicated. pt previously disc'd risk of procedures and stated that she wanted to proceed
[2019-05-07] MEDS ORDERED: MIDAZOLAM HCL 2 MG/2 ML SINGLE DOSE VIAL ONE (12:04)
[2019-05-07] MEDS ORDERED: PT OWN MED DRAWER 7, Y5N ONE (13:53)
[2019-05-07] MEDS: predniSONE 10 MG TABLET (UD) PO SCH (14:00)
[2019-05-07] MEDS: LACTOBACILLUS ACIDOPHILUS 1 TABLET PO SCH (14:00)
[2019-05-07] MEDS: clonazePAM 0.5 MG TABLET PO SCH (14:00)
[2019-05-07] MEDS: CALCIUM 500MG/VIT-D 200 UNITS COMBO TABLET (FP) PO SCH (14:01)
[2019-05-07] MEDS: valACYclovir HCL 500 MG TABLET (FP) PO SCH (14:01)
[2019-05-07] MEDS: PANTOPRAZOLE 40 MG TABLET (FP) PO SCH (14:01)
--- NOTE | 2019-05-07 16:33 | PN ---
Progress Note, Physician History of Present Illness: Pt seen and examined at bedside. SHe is awake and alert. She is tolerating diet and denies diarrhea. - Current Medication List Current Medications: Active Medications Albuterol Sulfate (Ventolin 0.083% Nebulizer Soln -) 1 amp NEB Q4H PRN PRN Reason: SHORT OF BREATH/WHEEZING Last Admin: 04/29/19 04:50 Dose: 1 amp Albuterol/Ipratropium (Duoneb -) 1 amp NEB RQID [facility] Last Admin: 05/07/19 16:03 Dose: 1 amp Calcium Carbonate/Cholecalciferol (Os-Mikie 500+D -) 2 tab PO DAILY [facility] Last Admin: 05/07/19 14:01 Dose: 2 tab Clonazepam (Klonopin -) 0.5 mg PO DAILY [facility] Last Admin: 05/07/19 14:00 Dose: 0.5 mg Clonazepam (Klonopin -) 1 mg PO HS [facility] Last Admin: 05/06/19 21:56 Dose: 1 mg Guaifenesin (Robitussin Dm -) 10 ml PO Q6H PRN PRN Reason: COUGH Last Admin: 05/05/19 10:01 Dose: 10 ml Lactobacillus Acidophilus (Bacid -) 1 tab PO DAILY [facility] Last Admin: 05/07/19 14:00 Dose: 1 tab Ondansetron HCl (Zofran Injection) 4 mg IVPUSH Q6H PRN PRN Reason: NAUSEA AND/OR VOMITING Pantoprazole Sodium (Protonix -) 40 mg PO DAILY [facility] Last Admin: 05/07/19 14:01 Dose: 40 mg Prednisone (Deltasone -) 30 mg PO DAILY [facility] Last Admin: 05/07/19 14:00 Dose: 30 mg Sodium Chloride ([place] Nasal [place]olt -) 2 spray NS TID PRN PRN Reason: NASAL CONGESTION Last Admin: 04/26/19 11:39 Dose: 2 sprays Valacyclovir HCl (Valtrex -) 500 mg PO BID [facility] Last Admin: 05/07/19 14:01 Dose: 500 mg - Objective Vital Signs: Vital Signs Temperature 97.9 F 05/07/19 13:00 Pulse Rate 87 05/07/19 13:00 Respiratory Rate 18 05/07/19 13:00 Blood Pressure 107/55 L 05/07/19 13:00 O2 Sat by Pulse Oximetry (%) 96 05/07/19 13:00 Constitutional: Yes: Calm Eyes: Yes: Conjunctiva Clear HENT: Yes: Atraumatic Neck: Yes: Supple Cardiovascular: Yes: S1, S2 Respiratory: Yes: CTA Bilaterally, On Nasal O2 Gastrointestinal: Yes: Soft Genitourinary: Yes: WNL Extremities: Yes: WNL Edema: No Neurological: Yes: Oriented Psychiatric: Yes: Oriented Labs: CBC, BMP 05/05/19 08:00 05/05/19 08:00 INR, PTT INR 1.04 (0.83-1.09) 04/24/19 06:08 Problem List - Problems (1) Acute renal failure Code(s): N17.9 - ACUTE KIDNEY FAILURE, UNSPECIFIED Qualifiers: Acute renal failure type: unspecified Qualified Code(s): N17.9 - Acute kidney failure, unspecified (2) COPD (chronic obstructive pulmonary disease) Code(s): J44.9 - CHRONIC OBSTRUCTIVE PULMONARY DISEASE, UNSPECIFIED (3) Sepsis Code(s): A41.9 - SEPSIS, UNSPECIFIED ORGANISM Qualifiers: Sepsis type: sepsis due to unspecified organism Sepsis acute organ dysfunction status: with acute organ dysfunction Severe sepsis acute organ dysfunction type: acute liver failure Hepatic coma status: without hepatic coma Severe sepsis shock status: without septic shock Qualified Code(s): A41.9 - Sepsis, unspecified organism; R65.20 - Severe sepsis without septic shock; K72.00 - Acute and subacute hepatic failure without coma Assessment/Plan Current Medications Generic Name Dose Route Start Last Admin Trade Name Freq PRN Reason Stop Dose Admin Albuterol Sulfate 1 amp 04/24/19 10:21 04/29/19 04:50 Ventolin 0.083% Nebulizer Soln - NEB 1 amp Q4H PRN Administration SHORT OF BREATH/WHEEZING Albuterol/Ipratropium 1 amp 04/24/19 12:00 05/07/19 16:03 Duoneb - NEB 1 amp RQID [facility] Administration Calcium Carbonate/Cholecalciferol 2 tab 04/25/19 20:00 05/07/19 14:01 Os-Mikie 500+D - PO 2 tab DAILY [facility] Administration Clonazepam 0.5 mg 05/01/19 10:00 05/07/19 14:00 Klonopin - PO 0.5 mg DAILY [facility] Administration Clonazepam 1 mg 05/01/19 22:00 05/06/19 21:56 Klonopin - PO 1 mg HS [facility] Administration Guaifenesin 10 ml 04/24/19 09:17 05/05/19 10:01 Robitussin Dm - PO 10 ml Q6H PRN Administration COUGH Lactobacillus Acidophilus 1 tab 04/28/19 10:00 05/07/19 14:00 Bacid - PO 1 tab DAILY [facility] Administration Ondansetron HCl 4 mg 04/24/19 09:17 Zofran Injection IVPUSH Q6H PRN NAUSEA AND/OR VOMITING Pantoprazole Sodium 40 mg 04/27/19 10:00 05/07/19 14:01 Protonix - PO 40 mg DAILY [facility] Administration Prednisone 30 mg 05/05/19 10:46 05/07/19 14:00 Deltasone - PO 30 mg DAILY [facility] Administration Sodium Chloride 2 spray 04/26/19 10:09 04/26/19 11:39 [place] Nasal [place] - NS 2 sprays TID PRN Administration NASAL CONGESTION Valacyclovir HCl 500 mg 04/24/19 22:00 05/07/19 14:01 Valtrex - PO 500 mg BID [facility] Administration Impression 1. [facility] 2. hyperkalemia 3. sepsis 4. copd 5. anxiety 6. hypotension Plan - renal function had stabilizes - GI symptoms improved - outpt follow up - discussed with pt - will follow PRN
--- NOTE | 2019-05-07 16:44 | DS ---
Physical Exam: SUBJECTIVE: Patient seen and examined at bedside. Breathing improved. EGD without acute abnormality. For d/c, discussed with pt insurance sales representative Camille Drew and pt at bedside. all questions answered OBJECTIVE: Vital Signs Period Temp Pulse Resp BP Sys/Cárdenas Pulse Ox Last 24 Hr 97.9 F-98.4 F 87-106 18-22 85-122/46-73 93-96 05/01/19 05/03/19 05/04/19 19:41 19:06 06:37 Blood Pressure 115/78 90/54 L 104/56 L 05/05/19 05/05/19 05/07/19 16:53 19:54 12:23 Blood Pressure 111/58 L 105/52 L 85/46 L 05/07/19 05/07/19 12:53 13:00 Blood Pressure 109/56 L 107/55 L PHYSICAL EXAM GENERAL: The patient is awake, alert, and fully oriented, in no acute distress. HEAD: Normal with no signs of trauma. EYES: PERRL, extraocular movements intact, sclera anicteric, conjunctiva clear. ENT: Ears normal, nares patent, oropharynx clear without exudates, moist mucous membranes. NECK: Trachea midline, full range of motion, supple. LUNGS: Breath sounds equal, clear to auscultation bilaterally, no wheezes, no crackles, no accessory muscle use. HEART: Regular rate and rhythm, S1, S2 without murmur, rub or gallop. ABDOMEN: Soft, nontender, nondistended, normoactive bowel sounds, no guarding, no rebound, no hepatosplenomegaly, no masses. EXTREMITIES: 2+ pulses, warm, well-perfused, no edema. NEUROLOGICAL: Cranial nerves II through XII grossly intact. Normal speech, gait not observed. PSYCH: Normal mood, normal affect. SKIN: Warm, dry, normal turgor, no rashes or lesions noted. LABS H/H trend 04/21/19 04/23/19 04/27/19 12:59 05:40 07:04 Hgb 12.2 9.6 L 8.5 L Hct 37.7 D 28.9 L 25.1 L 04/30/19 05/01/19 05/02/19 07:45 08:10 08:00 Hgb 9.1 L 8.6 L 9.1 L Hct 26.8 L 25.8 L 27.3 L 05/03/19 05/05/19 07:32 08:00 Hgb 8.6 L 8.8 L Hct 25.7 L 27.0 L WBC 04/21/19 04/21/19 04/22/19 12:59 17:25 05:15 WBC 32.5 H* 28.6 H 24.6 H 04/23/19 04/24/19 05/05/19 05:40 06:08 08:00 WBC 6.4 6.6 6.8 INR 04/21/19 04/22/19 04/24/19 12:59 05:15 06:08 PT with INR 15.40 H 17.40 H 12.30 INR 1.30 H 1.47 H 1.04 ABG 04/21/19 14:56 ABG pH 7.37 ABG pCO2 at Pt Temp 43.0 ABG pO2 at Pt Temp 68.9 L ABG HCO3 24.3 ABG O2 Sat (Measured) 92.1 L ABG O2 Content 13.5 ABG Base Excess -0.5 Renal fnc 04/30/19 05/01/19 05/02/19 21:45 08:10 08:00 BUN 25.1 H 25.2 H 24.2 H Creatinine 1.2 1.1 1.1 05/03/19 05/05/19 07:32 08:00 BUN 23.2 H 29.6 H Creatinine 1.0 1.1 Laboratory Tests 04/21/19 10:54 Stool Occult Blood Positive Additional testing 05/01/19 05/01/19 05/01/19 08:10 08:10 08:10 Hep A IgM Ab Confirm Negative Hep Bs Antigen Negative Hep B Core IgM Ab Negative Hep C Ab Diagnostic <0.1 Hepatitis C Ab (EIA) 0.1 HIV 1&2 Ag/Ab, 4th Gen Non reactive Microbiology 04/23/19 10:30 Stool Salmonella/Shigella Culture - Final 04/23/19 10:30 Stool Escherichia coli 0157 Culture - Final NO GROWTH OF SALMONELLA OR SHIGELLA SPECIES OBTAINED NO GROWTH OF CAMPYLOBACTER SPECIES OBTAINED NO GROWTH OF YERSINIA SPECIES OBTAINED NO GROWTH OF VIBRIO SPECIES OBTAINED NO GROWTH OF E COLI 0157 OBTAINED 04/23/19 10:30 Stool Gram Stain - Final 04/22/19 18:00 Nares - Mrsa Screen - Right MRSA Screen - Final NO MRSA ISOLATED 04/22/19 18:00 Nares - Mrsa Screen - Left MRSA Screen - Final NO MRSA ISOLATED 04/22/19 10:30 Stool Clostridioides difficile Antigen - Final 04/22/19 10:30 Stool Clostridioides difficile Toxin Assay - Final 04/21/19 13:00 Blood - Peripheral Venous Blood Culture - Final Escherichia Coli Esbl Sign Language Translator 04/21/19 12:59 Blood - Peripheral Venous Blood Culture - Final NO GROWTH AFTER 5 DAYS INCUBATION 04/21/19 12:56 Urine - Urine Clean Catch Urine Culture - Final Gram Negative Jarret 04/23/19 06:15 Blood - Peripheral Venous Blood Culture - Preliminary NO GROWTH OBTAINED AFTER 96 HOURS, INCUBATION TO CONTINUE FOR 1 DAYS. 04/23/19 05:40 Blood - Peripheral Venous Blood Culture - Preliminary NO GROWTH OBTAINED AFTER 96 HOURS, INCUBATION TO CONTINUE FOR 1 DAYS. Imaging 04/21 CXR: no acute chest path 04/21 abdom sono: multiple hepatic cysts are noted (most prominent measuring 3.3cm in diameter, 1cm L and R hepatic lobe low attenuation foci as described on chest CTA on 01/2018 cannot be appreciated now). no gross mass lesion. liver mildly prominent. no calculi. pancreas partially obscured d/t overlapping bowel gas. no free intraperitoneal fluid seen. no R hydro. mild diffuse R renal cortical atrophy 04/21: CTAP: no acute path. partial imaging of pericardial effusion which is small to moderate volume. This finding is probably unchanged in comparison to past chest CT. moderate to large hiatal hernia. multiple hepatic cysts described. small L hepatic lobe cyst demonstrates interval development of mildly increased internal density in comparison to 2019, probably representing debris and less likely path. Multilevel thoracolumbar vertebral body compression fractures. L basilar discoid atelectasis, L posterior basilar suture line. Very small portion of lung parenchyma. 04/22: CXR : developed atelectatic and infiltrative changes more at the left base 04/24: Upper GI series: esophageal dysmotility, large sliding hiatal hernia, mild thickening of gastric folds. gastritis cannot be excluded. no evidence of gastric outlet obstruction or acute/chronic peptic ulcer dz. 04/26: MBS: moderate sized hiatus hernia 05/02: U/S: hepatomegaly w/ multiple hepatic cysts 05/07: EGD: 5cm hiatal hernia, otherwise normal. HOSPITAL COURSE: Date of Admission:04/21/19 Date of Discharge: 05/07/19 Admit diagnosis: coffee ground emesis, N/V, hypotension 73 y/o F with PMH COPD on 2L 02, JANETTE on CPAP, h/o partial lung resection - carcinoid, GERD, prior hx MRSA who presented with hypotension, N/V, coffee ground emesis and [facility]. Was initially monitored in ICU then transitioned to the floor: #COPD on 2L 02 #CPAP use -c/w duonebs PRN -c/w CPAP -on prednisone 40mg PO qd. was placed on slow taper. d/c on prednisone 30mg x 5 days, 20mg x 5 days then taper to home dose: alternating 5 and 10mg every other day -Pulm was consulted and followed pt -pt was optimized pulm azar for EGD #N/V/D, coffee ground emesis, possible 2/2 gastric outlet obstruction -c/t monitor H/H; has been stable -c/w protonix 40mg qd on discharge -UGI series: reveals esophageal dysmotility with large, sliding hiatal hernia -underwent EGD - unrevealing, just showed 5cm hiatal hernia. otherwise normal #Chronic pericardial effusion -since 2018 -no JVD, hemodynamically stable -if develops tamponade then will need drainage - to follow with cardio on discharge to monitor #gram (-) sepsis 2/2 UTI -coverage changed to ertapenem (04/25) from [facility]. completed 03/15 abx. ESBL, PCN / sulfa allergy -on bacid. -recent cx (-) -isolation precautions: past hx MRSA, now ESBL -ID on board: Dr. Rojas #oral HSV -c/w valtrex #LUH - resolved #anxiety -home klonopin 1mg qHS qd -0.5mg qAM -at baseline per daughter Minutes to complete discharge: 45 <China Mayorga - Last Filed: 05/07/19 16:44> Physical Exam: SUBJECTIVE: Patient seen and examined OBJECTIVE: Vital Signs Period Temp Pulse Resp BP Sys/Cárdenas Pulse Ox Last 24 Hr 97.9 F-98.4 F 87-114 18-22 85-122/46-73 93-96 PHYSICAL EXAM GENERAL: The patient is awake, alert, and fully oriented, in no acute distress. HEAD: Normal with no signs of trauma. EYES: PERRL, extraocular movements intact, sclera anicteric, conjunctiva clear. ENT: Ears normal, nares patent, oropharynx clear without exudates, moist mucous membranes. NECK: Trachea midline, full range of motion, supple. LUNGS: Breath sounds equal, clear to auscultation bilaterally, no wheezes, no crackles, no accessory muscle use. HEART: Regular rate and rhythm, S1, S2 without murmur, rub or gallop. ABDOMEN: Soft, nontender, nondistended, normoactive bowel sounds, no guarding, no rebound, no hepatosplenomegaly, no masses. EXTREMITIES: 2+ pulses, warm, well-perfused, no edema. NEUROLOGICAL: Cranial nerves II through XII grossly intact. Normal speech, gait not observed. PSYCH: Normal mood, normal affect. SKIN: Warm, dry, normal turgor, no rashes or lesions noted. 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) - Home Medications Comprehensive Discharge Medication List: Ambulatory Orders Acetaminophen [Mapap] 650 mg PO PRN 10/26/16 Aspirin [ASA -] 81 mg PO DAILY 10/26/16 Citalopram Hydrobromide [Citalopram HBr] 20 mg PO DAILY 10/26/16 Clonazepam [Klonopin] 1 mg PO HS 10/26/16 Docusate Sodium [Colace -] 300 mg PO HS 10/26/16 clonazePAM [Klonopin -] 0.5 mg PO AM 10/26/16 Albuterol 2.5/Ipratropium 0.5 [Duoneb -] 1 amp NEB Q6H 01/20/18 Albuterol Sulfate [Proair Hfa] 2 puff IH Q4H 01/20/18 Atorvastatin Ca [Lipitor] 40 mg PO HS 01/20/18 Cholecalciferol (Vitamin D3) [Vitamin D3] 1,000 unit PO DAILY 01/20/18 Denosumab [Prolia -] 60 mg SQ 04/21/19 Ferrous Sulfate 325 mg PO DAILY 04/21/19 Guaifenesin [Mucinex] 600 mg PO BID 04/21/19 Lactobacillus Acidophilus [Acidophilus] 1 each PO DAILY 04/21/19 Metoprolol Tartrate [Lopressor -] 12.5 mg PO BID 04/21/19 Quetiapine Fumarate [Seroquel -] 25 mg PO HS 04/21/19 Tiotropium Reading [Spiriva] 1 inh DAILY 04/21/19 Pantoprazole Sodium [Protonix -] 40 mg PO DAILY #30 tablet.ec 05/07/19 Prednisone 5 mg PO Q48H #30 tab.ds.pk 05/07/19 Prednisone 20 mg PO DAILY #5 tablet 05/07/19 predniSONE [Deltasone -] 10 mg PO Q48H #30 tablet 05/07/19 predniSONE [Deltasone -] 30 mg PO DAILY #5 tablet 05/07/19 <China Mayorga - Last Filed: 05/07/19 16:44> Current Active Problems Anemia (Acute) Sepsis (Acute) UGIB (upper gastrointestinal bleed) (Acute) Urinary tract infection due to ESBL Klebsiella (Acute) 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) - Home Medications Comprehensive Discharge Medication List: Ambulatory Orders Acetaminophen [Mapap] 650 mg PO PRN 10/26/16 Aspirin [ASA -] 81 mg PO DAILY 10/26/16 Citalopram Hydrobromide [Citalopram HBr] 20 mg PO DAILY 10/26/16 Clonazepam [Klonopin] 1 mg PO HS 10/26/16 Docusate Sodium [Colace -] 300 mg PO HS 10/26/16 clonazePAM [Klonopin -] 0.5 mg PO AM 10/26/16 Albuterol 2.5/Ipratropium 0.5 [Duoneb -] 1 amp NEB Q6H 01/20/18 Albuterol Sulfate [Proair Hfa] 2 puff IH Q4H 01/20/18 Atorvastatin Ca [Lipitor] 40 mg PO HS 01/20/18 Cholecalciferol (Vitamin D3) [Vitamin D3] 1,000 unit PO DAILY 01/20/18 Denosumab [Prolia -] 60 mg SQ 04/21/19 Ferrous Sulfate 325 mg PO DAILY 04/21/19 Guaifenesin [Mucinex] 600 mg PO BID 04/21/19 Lactobacillus Acidophilus [Acidophilus] 1 each PO DAILY 04/21/19 Metoprolol Tartrate [Lopressor -] 12.5 mg PO BID 04/21/19 Quetiapine Fumarate [Seroquel -] 25 mg PO HS 04/21/19 Tiotropium Reading [Spiriva] 1 inh DAILY 04/21/19 Pantoprazole Sodium [Protonix -] 40 mg PO DAILY #30 tablet.ec 05/07/19 Prednisone 5 mg PO Q48H #30 tab.ds.pk 05/07/19 Prednisone 20 mg PO DAILY #5 tablet 05/07/19 predniSONE [Deltasone -] 10 mg PO Q48H #30 tablet 05/07/19 predniSONE [Deltasone -] 30 mg PO DAILY #5 tablet 05/07/19 <Alexander Turner - Last Filed: 05/07/19 19:28> Condition: Stable - Instructions Diet, Activity, Other Instructions: You were in the hospital because you had a urinary tract infection, blood in your vomit and trouble breathing. You were managed on a ten-day course of IV antibiotics. You were also monitored by a GI team for the bleeding, and you underwent an EGD (upper endoscopy) which revealed a 5cm hiatal hernia, otherwise normal. Your lung function was managed with steroids and you were seen by a lung doctor. Your symptoms improved and you are being sent back to your facility. Medications 1. Please continue with a slow steroid taper: -Take prednisone 30mg a day for x 5 days starting tomorrow (05/06/2019) -Subsequently take 20mg a day for the next 5 days (05/11/2019-05/15/2019) -Starting on 05/16/2019, you can alternate with your home dose of 10mg and 5 mg. 2. We have started you on protonix (acid suppressant) medication. Please take 40mg daily (1 pill daily). Care During your testing, you were found to have chronic fluid around your heart called a pericardial effusion. This has been asymptomatic. You will need to routinely follow with a key account coordinator to make sure this is continually followed up. Follow-up Please follow up with the following doctors upon your discharge: -Your primary care doctor, Dr. Mccrary - this week -a GI doctor, Dr. Rice - in 1 week -a key account coordinator, Dr. Saldaña - 1 week -a lung doctor (pulmonary), Dr. Darling - 1 week Referrals: Marcell Darling MD [Staff Physician] - 1 Week Taqueria Saldaña MD [Staff Physician] - 1 Week Marge Rice MD [Staff Physician] - 1 Week Antony Mccrary MD [Primary Care Provider] - 1 Week Disposition: HOME This patient is new to me today: No Emergency Visit: No Critical Care patient: No - Discharge Referral Referred to [facility] Med P.C[facility] No <China Mayorga - Last Filed: 05/07/19 16:44> ATTENDING PHYSICIAN STATEMENT I saw and evaluated the patient. I reviewed the resident's note and discussed the case with the resident. I agree with the resident's findings and plan as documented. SUBJECTIVE: OBJECTIVE: ASSESSMENT AND PLAN: <China Mayorga - Last Filed: 05/07/19 16:44> ATTENDING PHYSICIAN STATEMENT I saw and evaluated the patient. I reviewed the resident's note and discussed the case with the resident. I agree with the resident's findings and plan as documented. SUBJECTIVE: OBJECTIVE: ASSESSMENT AND PLAN: <Alexander Turner - Last Filed: 05/07/19 19:28>
[2019-05-07 17:33] VITALS: BP 102/63; PULSE 114
== END 2019-05-07 19:35 | disposition home or self-care (01) | DRG 872 ==
LOC: SUPCPDRO 12:34 → JER 12:34 → JERBED 17:14 → JICU 18:33 → J8W 04-24 09:21
PROVIDERS: ADMIT Internal Medicine; ATTEND Internal Medicine
PROC: 0DJ08ZZ Inspection of Upper Intestinal Tract, Via Natural or Artificial Opening Endoscopic (ICD-10-PCS; principal; 2019-05-07 11:30)
DX: A41.51 Sepsis due to Escherichia coli [E. coli] (principal); N17.9 Acute kidney failure, unspecified; E87.2 Acidosis; I31.3 Pericardial effusion (noninflammatory); N39.0 Urinary tract infection, site not specified; J96.10 Chronic respiratory failure, unspecified whether with hypoxia or hypercapnia; D62 Acute posthemorrhagic anemia; E46 Unspecified protein-calorie malnutrition; R65.20 Severe sepsis without septic shock; Z99.81 Dependence on supplemental oxygen; J43.9 Emphysema, unspecified; E86.0 Dehydration; E87.5 Hyperkalemia; E86.1 Hypovolemia; E83.42 Hypomagnesemia; R19.7 Diarrhea, unspecified; B00.9 Herpesviral infection, unspecified; D69.6 Thrombocytopenia, unspecified; E83.39 Other disorders of phosphorus metabolism; E78.5 Hyperlipidemia, unspecified; Z88.0 Allergy status to penicillin; M81.0 Age-related osteoporosis without current pathological fracture; K21.9 Gastro-esophageal reflux disease without esophagitis; I10 Essential (primary) hypertension; I25.10 Atherosclerotic heart disease of native coronary artery without angina pectoris; F32.9 Major depressive disorder, single episode, unspecified; F41.9 Anxiety disorder, unspecified; E55.9 Vitamin D deficiency, unspecified; G47.33 Obstructive sleep apnea (adult) (pediatric); B96.89 Other specified bacterial agents as the cause of diseases classified elsewhere; K44.9 Diaphragmatic hernia without obstruction or gangrene; E66.3 Overweight; Z68.25 Body mass index [BMI] 25.0-25.9, adult; G47.00 Insomnia, unspecified; R91.1 Solitary pulmonary nodule; K22.4 Dyskinesia of esophagus
CPT/HCPCS: 36415; 36600; 71045-TC-FY; 74176-TC; 74230-TC-FY; 74247-TC-FY; 76705-TC; 80048; 80053; 80074; 80076; 81003; 82272; 82308; 82375; 82550; 82565; 82803; 83050; 83605; 83690; 83735; 84100; 84132; 84300; 84484; 85025; 85027; 85610; 85730; 86803; 86850; 86900; 86901; 87040; 87045; 87046; 87077; 87081; 87086; 87186; 87205; 87324; 87389; 87449; 92611-GN; 93005; 93010; 93306-TC; 94010; 94640; 94660; 97116-GP; 97162-GP; 99285-25; G0480; J3480

== ENCOUNTER 2019-09-27 13:38 | Emergency (ER) | payer BC, OTHER ==
[2019-09-27 13:52] VITALS: BMI 25.7
[2019-09-27 15:25] LABS: VENOUS BASE EXCESS 3.4 mmol/L (-2-2); VENOUS PC02 57.4 mmHg (38-52); VENOUS PH 7.34 (7.31-7.41); VENOUS PO2 63.9 mmHg (28-48)
[2019-09-27 15:32] LABS: BASO % 0.3 % (0-2.0); EOS % 0.7 % (0-4.5); HEMATOCRIT 31.8 % (32.4-45.2); HEMOGLOBIN 10.8 GM/dL (10.7-15.3); LYMPH % 6.6 % (8-40); MCH 30.3 pg (25.7-33.7); MEAN CELL VOLUME 88.9 fl (80-96); NEUT % 86.4 % (42.8-82.8); PLATELET COUNT 153 K/MM3 (134-434); RBC 3.57 M/mm3 (3.60-5.2); RDW 15.1 % (11.6-15.6); WHITE BLOOD COUNT 5.8 K/mm3 (4.0-10.0)
[2019-09-27 15:39] LABS: INR 1.08 (0.83-1.09); PROTHROMBIN TIME (PATIENT) 12.7 SEC (9.7-13.0)
[2019-09-27 15:42] LABS: ACTIVATED PTT 28.3 SECONDS (25.2-36.5)
[2019-09-27] MEDS ORDERED: methylPREDNISolone NA SUCC 125 MG/2 ML VIAL IVPUSH ONE (16:34)
[2019-09-27] MEDS ORDERED: AZITHROMYCIN IVPB 500 MG in DEXTROSE 5%-WATER - 250 ML IVPB ONE (16:34)
[2019-09-27 16:45] LABS: ALBUMIN 3.2 g/dl (3.4-5.0); ALK PHOS 76 U/L (45-117); ANION GAP 5 MMOL/L (8-16); BLOOD UREA NITROGEN 20.7 mg/dL (7-18); CALCIUM 7.6 mg/dL (8.5-10.1); CHLORIDE 104 mmol/L (98-107); CO2 30 mmol/L (21-32); CREATININE 1.2 mg/dL (0.55-1.3); GLUCOSE,RANDOM 201 mg/dL (74-106); POTASSIUM 3.7 mmol/L (3.5-5.1); SGOT/AST 17 U/L (15-37); SGPT/ALT 10 U/L (13-61); SODIUM 139 mmol/L (136-145); TOT PROT 5.3 g/dl (6.4-8.2)
[2019-09-27 16:46] LABS: BILIRUBIN,TOTAL 0.5 mg/dL (0.2-1)
[2019-09-27] MEDS ORDERED: methylPREDNISolone NA SUCC 125 MG/2 ML VIAL ONE (16:51)
[2019-09-27] MEDS ORDERED: AZITHROMYCIN IVPB 500 MG/250 ML BAG IVPB ONE (16:52)
[2019-09-27 17:31] LABS: EPI CELLS 9 /uL (0-25.1); HYALINE CASTS 4 /uL (0-3.1); URINE APPEARANCE CLOUDY; URINE BILIRUBIN NEGATIVE (NEGATIVE); URINE COLOR YELLOW; URINE GLUCOSE (UA) NEGATIVE (NEGATIVE); URINE KETONE TRACE (NEGATIVE); URINE LEUK ESTERASE 1+ (NEGATIVE); URINE NITRITE POSITIVE (NEGATIVE); URINE PROTEIN 1+ (NEGATIVE); URINE RBC 14 /uL (0-23.9); URINE UROBILINOGEN 0.2 mg/dL (0.2-1.0); URINE WBC 243 /uL (0-25.8)
[2019-09-27] MEDS ORDERED: CEFTRIAXONE 1 GM in DEXTROSE 5%-WATER - 100 ML IVPB ONE (17:37)
[2019-09-27 18:24] VITALS: TEMP 98.2
[2019-09-27] MEDS ORDERED: CEFTRIAXONE 1 GM/50 ML BAG ONE (19:42)
[2019-09-27 19:55] VITALS: BP 123/60; PULSE 85
== END 2019-09-27 21:56 | disposition home or self-care (01) ==
LOC: JER 13:38
PROC: 3E033GC Introduction of Other Therapeutic Substance into Peripheral Vein, Percutaneous Approach (ICD-10-PCS; principal; 2019-09-27)
DX: N39.0 Urinary tract infection, site not specified (principal); R05 Cough
CPT/HCPCS: 36415; 71045-TC-FY; 80053; 81003; 82550; 82728; 82803; 83605; 84484; 85025; 85610; 85730; 87040; 87086; 87186; 93005; 93010; 96365; 96367; 96375; 99285-25; U0003

== ENCOUNTER → 2021-03-05 | Day surgery (SDC) | payer BC, OTHER | END | disposition home or self-care (01) | LOC: FMAMMOTONE 12:14 | PROVIDERS: ATTEND Internal Medicine Hematology | PROC: 0HBT3ZX Excision of Right Breast, Percutaneous Approach, Diagnostic (ICD-10-PCS; principal; 2021-03-05) | DX: Z53.8 Procedure and treatment not carried out for other reasons (principal); R92.1 Mammographic calcification found on diagnostic imaging of breast | CPT/HCPCS: 19081 ==

== ENCOUNTER → 2021-03-19 | Day surgery (SDC) | payer BC, OTHER | END | disposition home or self-care (01) | LOC: FMAMMOTONE 09:32 | PROVIDERS: ATTEND Internal Medicine | PROC: 0HBT3ZX Excision of Right Breast, Percutaneous Approach, Diagnostic (ICD-10-PCS; principal; 2021-03-19) | DX: D05.11 Intraductal carcinoma in situ of right breast (principal); N60.31 Fibrosclerosis of right breast; N64.89 Other specified disorders of breast; R92.0 Mammographic microcalcification found on diagnostic imaging of breast | CPT/HCPCS: 19081; 76098-TC-FY; 87899; 88305-TC; 88342-TC; A4648 ==

== ENCOUNTER 2021-07-25 12:07 | Emergency (ER) | payer BC, OTHER ==
[2021-07-25 12:14] VITALS: BP 121/80; PULSE 115; TEMP 97.8; BMI 23.8
== END 2021-07-25 14:03 | disposition home or self-care (01) ==
LOC: JER 12:07
DX: H11.32 Conjunctival hemorrhage, left eye (principal)
CPT/HCPCS: 99283-25

== ENCOUNTER 2021-10-28 14:54 | Inpatient (IN) | payer BC, OTHER ==
[2021-10-28] MEDS ORDERED: ALBUTEROL SO4 2.5/IPRATROPIUM 0.5 INH SOL 3 ML VIAL.NEB. NEB ONE ×2 (16:50→17:04)
[2021-10-28 18:28] LABS: BASO % 0.6 % (0-2.0); EOS % 1.6 % (0-4.5); HEMATOCRIT 21.7 % (32.4-45.2); LYMPH % 16.6 % (8-40); MCHC 31.3 g/dl (32.0-36.0); MEAN CELL VOLUME 92.8 fl (80-96); MEAN PLT VOLUME 7.1 fl (7.5-11.1); MONO % 6.9 % (3.8-10.2); NEUT % 74.3 % (42.8-82.8); PLATELET COUNT 238 10^3/uL (134-434); RBC 2.34 M/mm3 (3.60-5.2); RDW 15.2 % (11.6-15.6)
[2021-10-28 18:36] LABS: HEMOGLOBIN 6.8 GM/dL (10.7-15.3)
[2021-10-28 18:43] LABS: ALBUMIN 2.8 g/dl (3.4-5.0); BLOOD UREA NITROGEN 37.9 mg/dL (7-18); CALCIUM 8.1 mg/dL (8.5-10.1)
[2021-10-28 18:48] LABS: BILIRUBIN,TOTAL 0.1 mg/dL (0.2-1); TOT PROT 4.9 g/dl (6.4-8.2)
[2021-10-28 18:51] LABS: INR 1.06 (0.83-1.09); PROTHROMBIN TIME (PATIENT) 12.2 SEC (9.7-13.0)
[2021-10-28] MEDS ORDERED: PATIENT'S OWN MEDICATION (NON-FORMULARY) (Levalbuterol Tartrate [Xopenex Hfa] 15 GM Hfa.Ae IH PRN (22:36)
[2021-10-28] MEDS ORDERED: ALBUTEROL SO4 HFA INHALER IH PRN (22:52)
[2021-10-28] MEDS ORDERED: PANTOPRAZOLE SODIUM 40 MG VIAL ONE (23:22)
[2021-10-28] MEDS: PANTOPRAZOLE SODIUM 40 MG VIAL IVPUSH SCH (23:24)
[2021-10-29 03:04] VITALS: BMI 23.1
[2021-10-29] MEDS: LEVOTHYROXINE NA 25 MCG TABLET (FP) PO SCH (06:23)
[2021-10-29 09:35] LABS: EOS % 4.3 % (0-4.5); HEMATOCRIT 24.5 % (32.4-45.2); LYMPH % 22.7 % (8-40); MCH 29.5 pg (25.7-33.7); MCHC 32.6 g/dl (32.0-36.0); MEAN CELL VOLUME 90.6 fl (80-96); MEAN PLT VOLUME 6.8 fl (7.5-11.1); MONO % 9.3 % (3.8-10.2); NEUT % 62.7 % (42.8-82.8); PLATELET COUNT 200 10^3/uL (134-434); RBC 2.71 M/mm3 (3.60-5.2); RDW 14.9 % (11.6-15.6); WHITE BLOOD COUNT 3.6 K/mm3 (4.0-10.0)
[2021-10-29] MEDS ORDERED: FLUTICASONE/UMECLIDIN/VILANTER(200-62.5-25 TRELEGY ELLIPTA) INAHLER IH SCH (10:00)
[2021-10-29] MEDS ORDERED: LACTOBACILLUS ACIDOPHILUS 1 TABLET PO SCH (10:00)
[2021-10-29 10:01] LABS: CHLORIDE 108 mmol/L (98-107); SODIUM 142 mmol/L (136-145)
[2021-10-29] MEDS: metoPROLOL SUCCINATE 25 MG TAB.SR.24H (FP) PO SCH (10:05)
[2021-10-29] MEDS: ASCORBIC ACID 500 MG TABLET (FP) PO SCH (10:05)
[2021-10-29] MEDS: CHOLECALCIFEROL (VIT D3) 1,000 UNIT (25 MCG) TABLET PO SCH (10:06)
[2021-10-29] MEDS: CITALOPRAM HYDROBROMIDE 20 MG TABLET PO SCH (10:06)
[2021-10-29] MEDS: LORATADINE 10 MG TABLET PO SCH (10:06)
[2021-10-29] MEDS: FERROUS SO4 325 MG TABLET (FP) PO SCH (10:07)
[2021-10-29] MEDS: GABAPENTIN 300 MG CAPSULE PO SCH ×2 (10:07→21:32)
[2021-10-29] MEDS: PANTOPRAZOLE SODIUM 40 MG VIAL IVPUSH SCH (10:07)
[2021-10-29] MEDS: ZINC SULFATE 220 MG CAPSULE (FP) PO SCH ×2 (10:07→21:32)
[2021-10-29 10:19] LABS: CALCIUM 7.8 mg/dL (8.5-10.1)
[2021-10-29 10:20] LABS: ALBUMIN 2.6 g/dl (3.4-5.0); ANION GAP 4 MMOL/L (8-16); CO2 31 mmol/L (21-32); GLUCOSE,RANDOM 108 mg/dL (74-106); MAGNESIUM 2.3 mg/dL (1.8-2.4)
[2021-10-29 10:21] LABS: BLOOD UREA NITROGEN 22.8 mg/dL (7-18)
[2021-10-29 10:23] LABS: CREATININE 0.8 mg/dL (0.55-1.3); PHOSPHOROUS 2.9 mg/dL (2.5-4.9); SGOT/AST 13 U/L (15-37); SGPT/ALT < 6 U/L (13-61)
[2021-10-29 10:25] LABS: BILIRUBIN,TOTAL 0.6 mg/dL (0.2-1); TOT PROT 4.6 g/dl (6.4-8.2)
[2021-10-29 10:26] LABS: ALK PHOS 63 U/L (45-117)
[2021-10-29] MEDS: FLUTICASONE PROP 0.05% 16 GM NASAL SPRAY NS SCH (11:35)
[2021-10-29] MEDS: TETRAHYDROZOLINE HCL EYE DROPS OU SCH ×2 (11:36→21:32)
[2021-10-29] MEDS: TAMOXIFEN CITRATE 10 MG TABLET PO SCH (11:36)
[2021-10-29] MEDS: FLUTICASONE/UMECLIDIN/VILANTER(200-62.5-25 TRELEGY ELLIPTA) INAHLER IH SCH (11:46)
[2021-10-29] MEDS: QUEtiapine FUMARATE 25 MG TABLET PO SCH (21:32)
[2021-10-29] MEDS: ATORVASTATIN CA 40 MG TABLET (FP) PO SCH (21:32)
[2021-10-29] MEDS ORDERED: DOCUSATE SODIUM 100 MG CAPSULE (FP) PO SCH (22:00)
[2021-10-30] MEDS: LEVOTHYROXINE NA 25 MCG TABLET (FP) PO SCH (05:59)
[2021-10-30 09:35] LABS: BASO % 0.7 % (0-2.0); EOS % 5.7 % (0-4.5); HEMOGLOBIN 7.7 GM/dL (10.7-15.3); LYMPH % 24.8 % (8-40); MCH 29.2 pg (25.7-33.7); MEAN CELL VOLUME 91.1 fl (80-96); MEAN PLT VOLUME 6.8 fl (7.5-11.1); MONO % 9.1 % (3.8-10.2); NEUT % 59.7 % (42.8-82.8); PLATELET COUNT 193 10^3/uL (134-434); RBC 2.63 M/mm3 (3.60-5.2); RDW 14.5 % (11.6-15.6)
[2021-10-30] MEDS: ASCORBIC ACID 500 MG TABLET (FP) PO SCH (09:44)
[2021-10-30] MEDS: ZINC SULFATE 220 MG CAPSULE (FP) PO SCH ×2 (09:44→21:54)
[2021-10-30] MEDS: CITALOPRAM HYDROBROMIDE 20 MG TABLET PO SCH (09:44)
[2021-10-30] MEDS: CHOLECALCIFEROL (VIT D3) 1,000 UNIT (25 MCG) TABLET PO SCH (09:44)
[2021-10-30] MEDS: PANTOPRAZOLE 40 MG TABLET PO SCH (09:44)
[2021-10-30] MEDS: FERROUS SO4 325 MG TABLET (FP) PO SCH (09:44)
[2021-10-30] MEDS: GABAPENTIN 300 MG CAPSULE PO SCH ×2 (09:44→21:54)
[2021-10-30] MEDS: LORATADINE 10 MG TABLET PO SCH (09:44)
[2021-10-30 09:45] LABS: INR 1.04 (0.83-1.09)
[2021-10-30] MEDS: metoPROLOL SUCCINATE 25 MG TAB.SR.24H (FP) PO SCH (09:46)
[2021-10-30] MEDS: FLUTICASONE/UMECLIDIN/VILANTER(200-62.5-25 TRELEGY ELLIPTA) INAHLER IH SCH (09:48)
[2021-10-30] MEDS: FLUTICASONE PROP 0.05% 16 GM NASAL SPRAY NS SCH (09:48)
[2021-10-30] MEDS: TETRAHYDROZOLINE HCL EYE DROPS OU SCH ×2 (09:49→21:57)
[2021-10-30 09:51] LABS: CALCIUM 7.9 mg/dL (8.5-10.1)
[2021-10-30 09:52] LABS: BLOOD UREA NITROGEN 13.8 mg/dL (7-18)
[2021-10-30] MEDS: TAMOXIFEN CITRATE 10 MG TABLET PO SCH (09:52)
[2021-10-30 09:55] LABS: CREATININE 0.7 mg/dL (0.55-1.3)
[2021-10-30] MEDS ORDERED: MIDAZOLAM HCL 2 MG/2 ML SINGLE DOSE VIAL ONE (14:42)
[2021-10-30] MEDS ORDERED: FENTANYL CITRATE/PF 50 MCG/ML VIAL ONE (14:42)
[2021-10-30] MEDS: QUEtiapine FUMARATE 25 MG TABLET PO SCH (21:54)
[2021-10-30] MEDS: ATORVASTATIN CA 40 MG TABLET (FP) PO SCH (21:54)
[2021-10-31] MEDS: LEVOTHYROXINE NA 25 MCG TABLET (FP) PO SCH (06:23)
[2021-10-31 08:33] LABS: BASO % 0.5 % (0-2.0); EOS % 6.3 % (0-4.5); HEMATOCRIT 26.5 % (32.4-45.2); HEMOGLOBIN 8.8 GM/dL (10.7-15.3); LYMPH % 27.2 % (8-40); MCHC 33.1 g/dl (32.0-36.0); MEAN CELL VOLUME 87.6 fl (80-96); MEAN PLT VOLUME 7.1 fl (7.5-11.1); MONO % 11.2 % (3.8-10.2); NEUT % 54.8 % (42.8-82.8); PLATELET COUNT 179 10^3/uL (134-434); RBC 3.02 M/mm3 (3.60-5.2); RDW 16.3 % (11.6-15.6)
[2021-10-31 08:56] LABS: CHLORIDE 109 mmol/L (98-107); SODIUM 144 mmol/L (136-145)
[2021-10-31 09:03] LABS: ALBUMIN 2.5 g/dl (3.4-5.0)
[2021-10-31 09:04] LABS: GLUCOSE,RANDOM 100 mg/dL (74-106)
[2021-10-31 09:05] LABS: BILIRUBIN,TOTAL 0.4 mg/dL (0.2-1); TOT PROT 4.5 g/dl (6.4-8.2)
[2021-10-31 09:06] LABS: ALK PHOS 58 U/L (45-117); CALCIUM 7.6 mg/dL (8.5-10.1); CREATININE 0.8 mg/dL (0.55-1.3)
[2021-10-31 09:07] LABS: ANION GAP 6 MMOL/L (8-16); BLOOD UREA NITROGEN 15.8 mg/dL (7-18); CO2 29 mmol/L (21-32); SGOT/AST 10 U/L (15-37); SGPT/ALT < 6 U/L (13-61)
[2021-10-31] MEDS ORDERED: IRON SUCROSE INJECTION 200 MG in SODIUM CHLORIDE 90 ML IVPB ONE (10:00)
[2021-10-31] MEDS: GABAPENTIN 300 MG CAPSULE PO SCH ×2 (10:32→21:27)
[2021-10-31] MEDS: ASCORBIC ACID 500 MG TABLET (FP) PO SCH (10:32)
[2021-10-31] MEDS: CITALOPRAM HYDROBROMIDE 20 MG TABLET PO SCH (10:32)
[2021-10-31] MEDS: LORATADINE 10 MG TABLET PO SCH (10:32)
[2021-10-31] MEDS: CHOLECALCIFEROL (VIT D3) 1,000 UNIT (25 MCG) TABLET PO SCH (10:32)
[2021-10-31] MEDS: ZINC SULFATE 220 MG CAPSULE (FP) PO SCH ×2 (10:32→21:27)
[2021-10-31] MEDS: metoPROLOL SUCCINATE 25 MG TAB.SR.24H (FP) PO SCH (10:33)
[2021-10-31] MEDS: TETRAHYDROZOLINE HCL EYE DROPS OU SCH ×2 (10:33→21:27)
[2021-10-31] MEDS: TAMOXIFEN CITRATE 10 MG TABLET PO SCH (10:33)
[2021-10-31] MEDS: PANTOPRAZOLE 40 MG TABLET PO SCH (10:36)
[2021-10-31] MEDS: FLUTICASONE/UMECLIDIN/VILANTER(200-62.5-25 TRELEGY ELLIPTA) INAHLER IH SCH (10:39)
[2021-10-31] MEDS: FLUTICASONE PROP 0.05% 16 GM NASAL SPRAY NS SCH (10:39)
[2021-10-31] MEDS: ATORVASTATIN CA 40 MG TABLET (FP) PO SCH (21:27)
[2021-10-31] MEDS: QUEtiapine FUMARATE 25 MG TABLET PO SCH (21:27)
[2021-11-01] MEDS: LEVOTHYROXINE NA 25 MCG TABLET (FP) PO SCH (06:19)
[2021-11-01 07:52] LABS: CALCIUM 7.8 mg/dL (8.5-10.1)
[2021-11-01 07:53] LABS: BLOOD UREA NITROGEN 13.3 mg/dL (7-18)
[2021-11-01 07:56] LABS: CREATININE 0.8 mg/dL (0.55-1.3)
[2021-11-01] MEDS: ZINC SULFATE 220 MG CAPSULE (FP) PO SCH ×2 (10:25→21:04)
[2021-11-01] MEDS: CITALOPRAM HYDROBROMIDE 20 MG TABLET PO SCH (10:26)
[2021-11-01] MEDS: PANTOPRAZOLE 40 MG TABLET PO SCH (10:26)
[2021-11-01] MEDS: GABAPENTIN 300 MG CAPSULE PO SCH ×2 (10:26→21:03)
[2021-11-01] MEDS: CHOLECALCIFEROL (VIT D3) 1,000 UNIT (25 MCG) TABLET PO SCH (10:27)
[2021-11-01] MEDS: LORATADINE 10 MG TABLET PO SCH (10:28)
[2021-11-01] MEDS: metoPROLOL SUCCINATE 25 MG TAB.SR.24H (FP) PO SCH (10:28)
[2021-11-01] MEDS: TAMOXIFEN CITRATE 10 MG TABLET PO SCH (10:29)
[2021-11-01] MEDS: FLUTICASONE PROP 0.05% 16 GM NASAL SPRAY NS SCH (10:31)
[2021-11-01] MEDS: FLUTICASONE/UMECLIDIN/VILANTER(200-62.5-25 TRELEGY ELLIPTA) INAHLER IH SCH (10:31)
[2021-11-01] MEDS: TETRAHYDROZOLINE HCL EYE DROPS OU SCH ×2 (10:33→21:04)
[2021-11-01] MEDS: ASCORBIC ACID 500 MG TABLET (FP) PO SCH (10:38)
[2021-11-01 12:46] LABS: BASO % 0.4 % (0-2.0); EOS % 7.3 % (0-4.5); HEMATOCRIT 28.5 % (32.4-45.2); HEMOGLOBIN 9.4 GM/dL (10.7-15.3); LYMPH % 29.8 % (8-40); MCH 29.2 pg (25.7-33.7); MCHC 33.1 g/dl (32.0-36.0); MEAN CELL VOLUME 88.3 fl (80-96); MEAN PLT VOLUME 7.1 fl (7.5-11.1); MONO % 11.9 % (3.8-10.2); NEUT % 50.6 % (42.8-82.8); PLATELET COUNT 184 10^3/uL (134-434); RBC 3.23 M/mm3 (3.60-5.2); RDW 16.2 % (11.6-15.6)
[2021-11-01] MEDS: QUEtiapine FUMARATE 25 MG TABLET PO SCH (21:03)
[2021-11-01] MEDS: ATORVASTATIN CA 40 MG TABLET (FP) PO SCH (21:03)
[2021-11-02] MEDS: LEVOTHYROXINE NA 25 MCG TABLET (FP) PO SCH (06:30)
[2021-11-02] MEDS ORDERED: PEG 3350/NA SULF BICARB CL/KCL 4000 ML SOLN.RECON PO ONE (09:00)
[2021-11-02] MEDS: ZINC SULFATE 220 MG CAPSULE (FP) PO SCH ×2 (09:30→22:30)
[2021-11-02] MEDS: LORATADINE 10 MG TABLET PO SCH (09:30)
[2021-11-02] MEDS: TETRAHYDROZOLINE HCL EYE DROPS OU SCH ×2 (09:30→22:30)
[2021-11-02] MEDS: CHOLECALCIFEROL (VIT D3) 1,000 UNIT (25 MCG) TABLET PO SCH (09:30)
[2021-11-02] MEDS: FLUTICASONE/UMECLIDIN/VILANTER(200-62.5-25 TRELEGY ELLIPTA) INAHLER IH SCH (09:30)
[2021-11-02] MEDS: CITALOPRAM HYDROBROMIDE 20 MG TABLET PO SCH (09:30)
[2021-11-02] MEDS: GABAPENTIN 300 MG CAPSULE PO SCH ×2 (09:30→22:30)
[2021-11-02] MEDS: ASCORBIC ACID 500 MG TABLET (FP) PO SCH (09:30)
[2021-11-02] MEDS: PANTOPRAZOLE 40 MG TABLET PO SCH (09:30)
[2021-11-02] MEDS: TAMOXIFEN CITRATE 10 MG TABLET PO SCH (09:31)
[2021-11-02] MEDS: metoPROLOL SUCCINATE 25 MG TAB.SR.24H (FP) PO SCH (09:31)
[2021-11-02] MEDS: FLUTICASONE PROP 0.05% 16 GM NASAL SPRAY NS SCH (09:31)
[2021-11-02] MEDS ORDERED: BISACODYL 5 MG TABLET.DR (FP) PO ONE (18:00)
[2021-11-02] MEDS: ATORVASTATIN CA 40 MG TABLET (FP) PO SCH (22:29)
[2021-11-02] MEDS: QUEtiapine FUMARATE 25 MG TABLET PO SCH (22:30)
[2021-11-03] MEDS: LEVOTHYROXINE NA 25 MCG TABLET (FP) PO SCH (06:14)
[2021-11-03 08:47] LABS: BASO % 0.9 % (0-2.0); EOS % 5.6 % (0-4.5); HEMATOCRIT 31.9 % (32.4-45.2); HEMOGLOBIN 10.3 GM/dL (10.7-15.3); LYMPH % 24.5 % (8-40); MCHC 32.4 g/dl (32.0-36.0); MEAN CELL VOLUME 89.7 fl (80-96); MEAN PLT VOLUME 7.4 fl (7.5-11.1); MONO % 8.2 % (3.8-10.2); NEUT % 60.8 % (42.8-82.8); PLATELET COUNT 211 10^3/uL (134-434); RBC 3.55 M/mm3 (3.60-5.2); RDW 15.6 % (11.6-15.6)
[2021-11-03 09:09] LABS: CALCIUM 7.8 mg/dL (8.5-10.1)
[2021-11-03 09:12] LABS: CREATININE 0.8 mg/dL (0.55-1.3)
[2021-11-03] MEDS ORDERED: MIDAZOLAM HCL 2 MG/2 ML SINGLE DOSE VIAL ONE (10:27)
[2021-11-03] MEDS: CITALOPRAM HYDROBROMIDE 20 MG TABLET PO SCH (12:33)
[2021-11-03] MEDS: metoPROLOL SUCCINATE 25 MG TAB.SR.24H (FP) PO SCH (12:33)
[2021-11-03] MEDS: CHOLECALCIFEROL (VIT D3) 1,000 UNIT (25 MCG) TABLET PO SCH (12:34)
[2021-11-03] MEDS: GABAPENTIN 300 MG CAPSULE PO SCH (12:34)
[2021-11-03] MEDS: LORATADINE 10 MG TABLET PO SCH (12:34)
[2021-11-03] MEDS: PANTOPRAZOLE 40 MG TABLET PO SCH (12:34)
[2021-11-03] MEDS: FLUTICASONE/UMECLIDIN/VILANTER(200-62.5-25 TRELEGY ELLIPTA) INAHLER IH SCH ×2 (12:34→15:34)
[2021-11-03] MEDS: ASCORBIC ACID 500 MG TABLET (FP) PO SCH (12:34)
[2021-11-03] MEDS: TAMOXIFEN CITRATE 10 MG TABLET PO SCH (12:35)
[2021-11-03] MEDS: FLUTICASONE PROP 0.05% 16 GM NASAL SPRAY NS SCH ×2 (12:35→15:34)
[2021-11-03] MEDS: ZINC SULFATE 220 MG CAPSULE (FP) PO SCH (12:35)
[2021-11-03] MEDS: TETRAHYDROZOLINE HCL EYE DROPS OU SCH (12:41)
[2021-11-03 16:15] VITALS: BP 92/55; PULSE 87; TEMP 98.1
== END 2021-11-03 17:50 | DRG 812 ==
LOC: JER 14:54 → JERBED 21:18 → J8W 10-29 02:47
PROVIDERS: ADMIT Internal Medicine; ATTEND Internal Medicine
PROC: 30233N1 Transfusion of Nonautologous Red Blood Cells into Peripheral Vein, Percutaneous Approach (ICD-10-PCS; 2021-10-28)
PROC: 0DJ08ZZ Inspection of Upper Intestinal Tract, Via Natural or Artificial Opening Endoscopic (ICD-10-PCS; principal; 2021-10-30 12:30)
PROC: 0DBN8ZX Excision of Sigmoid Colon, Via Natural or Artificial Opening Endoscopic, Diagnostic (ICD-10-PCS; 2021-11-03)
DX: D50.9 Iron deficiency anemia, unspecified (principal); I31.3 Pericardial effusion (noninflammatory); I25.10 Atherosclerotic heart disease of native coronary artery without angina pectoris; K21.9 Gastro-esophageal reflux disease without esophagitis; J43.9 Emphysema, unspecified; E78.5 Hyperlipidemia, unspecified; K44.9 Diaphragmatic hernia without obstruction or gangrene; R94.31 Abnormal electrocardiogram [ECG] [EKG]; K57.90 Diverticulosis of intestine, part unspecified, without perforation or abscess without bleeding; K64.8 Other hemorrhoids; F41.8 Other specified anxiety disorders; E03.9 Hypothyroidism, unspecified; I71.2 Thoracic aortic aneurysm, without rupture; M81.0 Age-related osteoporosis without current pathological fracture; R00.0 Tachycardia, unspecified; Z88.0 Allergy status to penicillin; Z85.42 Personal history of malignant neoplasm of other parts of uterus; Z96.643 Presence of artificial hip joint, bilateral; Z85.3 Personal history of malignant neoplasm of breast; Z99.81 Dependence on supplemental oxygen
CPT/HCPCS: 0241U-QW; 36415; 36430; 71045-TC-FY; 74177-TC; 80048; 80053; 82272; 82728; 82962; 83540; 83550; 83735; 84100; 84484; 85025; 85610; 86850; 86900; 86901; 86922; 88305-TC; 93005; 93010; 93306-TC; 94660; 99285-25; J1756; P9058

== ENCOUNTER 2021-12-22 13:55 | Emergency (ER) | payer BC, OTHER ==
[2021-12-22 15:42] VITALS: BP 105/66; PULSE 88; TEMP 98.6; BMI 24.4
[2021-12-22 17:08] LABS: BASO % 0.7 % (0-2.0); EOS % 3.8 % (0-4.5); HEMATOCRIT 26.5 % (32.4-45.2); HEMOGLOBIN 8.5 GM/dL (10.7-15.3); LYMPH % 23.2 % (8-40); MCH 29.4 pg (25.7-33.7); MCHC 32.1 g/dl (32.0-36.0); MEAN CELL VOLUME 91.5 fl (80-96); MONO % 12.9 % (3.8-10.2); NEUT % 59.4 % (42.8-82.8); PLATELET COUNT 226 10^3/uL (134-434); RBC 2.89 M/mm3 (3.60-5.2); RDW 14.5 % (11.6-15.6); WHITE BLOOD COUNT 3.8 K/mm3 (4.0-10.0)
[2021-12-22 17:28] LABS: BLOOD UREA NITROGEN 17.4 mg/dL (7-18); CALCIUM 8.3 mg/dL (8.5-10.1)
[2021-12-22 17:29] LABS: ALBUMIN 2.8 g/dl (3.4-5.0); MAGNESIUM 2.2 mg/dL (1.8-2.4)
[2021-12-22 17:32] LABS: ACTIVATED PTT 31.4 SECONDS (25.2-36.5); CREATININE 0.8 mg/dL (0.55-1.3); INR 0.97 (0.83-1.09); PROTHROMBIN TIME (PATIENT) 11.2 SEC (9.7-13.0)
[2021-12-22 17:33] LABS: BILIRUBIN,TOTAL 0.1 mg/dL (0.2-1); TOT PROT 5.2 g/dl (6.4-8.2)
== END 2021-12-22 19:41 ==
LOC: JER 13:55
DX: D64.9 Anemia, unspecified (principal)
CPT/HCPCS: 36415; 71045-TC-FY; 80053; 83735; 85025; 85610; 85730; 86850; 86900; 86901; 93005; 93010; 99285-25; C9803-CS; U0003; U0005

== ENCOUNTER 2022-01-01 02:00 | Inpatient (IN) | payer BC, OTHER ==
[2022-01-01] MEDS ORDERED: SODIUM CHLORIDE 0.9% 500 ML INFUS.BAG IV ONE (03:24)
[2022-01-01 03:53] LABS: VENOUS BASE EXCESS 3.9 mmol/L (-2-2); VENOUS O2 SATURATION 58.2 % (70-80); VENOUS PCO2 59.1 mmHg (38-52); VENOUS PH 7.335 (7.310-7.410)
[2022-01-01 03:54] LABS: BASO % 0.4 % (0-2.0); EOS % 0.1 % (0-4.5); HEMATOCRIT 29.8 % (32.4-45.2); HEMOGLOBIN 9.7 GM/dL (10.7-15.3); LYMPH % 9.1 % (8-40); MCH 29.6 pg (25.7-33.7); MCHC 32.5 g/dl (32.0-36.0); MEAN CELL VOLUME 90.9 fl (80-96); MEAN PLT VOLUME 6.7 fl (7.5-11.1); NEUT % 77.4 % (42.8-82.8); PLATELET COUNT 186 10^3/uL (134-434); RBC 3.28 M/mm3 (3.60-5.2); RDW 14.9 % (11.6-15.6); WHITE BLOOD COUNT 4.3 K/mm3 (4.0-10.0)
[2022-01-01 03:59] LABS: INR 1.16 (0.83-1.09); PROTHROMBIN TIME (PATIENT) 13.4 SEC (9.7-13.0)
[2022-01-01 04:02] LABS: ACTIVATED PTT 28.8 SECONDS (25.2-36.5)
[2022-01-01 04:16] LABS: CALCIUM 8.1 mg/dL (8.5-10.1)
[2022-01-01 04:17] LABS: BLOOD UREA NITROGEN 20.5 mg/dL (7-18)
[2022-01-01 04:20] LABS: CREATININE 1.2 mg/dL (0.55-1.3)
[2022-01-01 04:21] LABS: BILIRUBIN,TOTAL 0.3 mg/dL (0.2-1); TOT PROT 5.5 g/dl (6.4-8.2)
[2022-01-01 04:42] LABS: LACTIC ACID 2.2 mmol/L (0.4-2.0)
[2022-01-01 05:45] LABS: EPI CELLS 6 /uL (0-25.1); HYALINE CASTS 1 /uL (0-3.1); PH,URINE 5.5 (5.0-8.0); URINE APPEARANCE CLOUDY; URINE BACTERIA >9,000 /uL (0-1359); URINE BILIRUBIN NEGATIVE (NEGATIVE); URINE COLOR YELLOW; URINE GLUCOSE (UA) NEGATIVE (NEGATIVE); URINE KETONE NEGATIVE (NEGATIVE); URINE LEUK ESTERASE 2+ (NEGATIVE); URINE NITRITE POSITIVE (NEGATIVE); URINE PROTEIN TRACE (NEGATIVE); URINE RBC 5 /uL (0-23.9); URINE UROBILINOGEN 0.2 mg/dL (0.2-1.0); URINE WBC 306 /uL (0-25.8)
[2022-01-01] MEDS ORDERED: CEFTRIAXONE 1,000 MG in DEXTROSE 5%-WATER - 50 ML IVPB ONE (05:50)
[2022-01-01] MEDS ORDERED: CEFTRIAXONE 1 GM/50 ML BAG ONE (05:52)
[2022-01-01] MEDS ORDERED: POLYETHYLENE GLYCOL (HEALTHYLAX) 3350 17 GM PACKET PO PRN (06:16)
[2022-01-01] MEDS ORDERED: ACETAMINOPHEN 1000 MG/100 ML BAG IVPB PRN (06:19)
[2022-01-01] MEDS ORDERED: DEXTROSE 5%-NORMAL SALINE 1,000 ML IV SCH (06:30)
[2022-01-01] MEDS ORDERED: ENOXAPARIN NA (PORCINE) 40 MG/0.4 ML DISP.SYRIN SQ SCH (10:00)
[2022-01-01] MEDS ORDERED: ENOXAPARIN NA (PORCINE) 40 MG/0.4 ML DISP.SYRIN SQ ONE (10:41)
[2022-01-01] MEDS ORDERED: ACETAMINOPHEN 325 MG TABLET (FP) ONE (12:34)
[2022-01-01] MEDS ORDERED: SODIUM CHLORIDE 1,000 ML IV STA (12:53)
[2022-01-01 13:57] LABS: RETICULOCYTES 2.33 % (0.5-1.5)
[2022-01-01] MEDS: LACTATED RINGERS SOLUTION 1,000 ML/1,000 ML INFUS.BAG IV SCH (16:24)
[2022-01-01] MEDS: ERTAPENEM SODIUM 1 GM in SODIUM CHLORIDE 50 ML IVPB SCH (18:26)
[2022-01-01 19:02] VITALS: BMI 23.3
[2022-01-01] MEDS: GABAPENTIN 300 MG CAPSULE PO SCH (21:55)
[2022-01-01] MEDS: DOCUSATE SODIUM 100 MG CAPSULE (FP) PO SCH (21:55)
[2022-01-01] MEDS: QUEtiapine FUMARATE 25 MG TABLET PO SCH (21:55)
[2022-01-01] MEDS: ATORVASTATIN CA 40 MG TABLET (FP) PO SCH (21:56)
[2022-01-02] MEDS ORDERED: ACETAMINOPHEN 325 MG TABLET (FP) PO PRN ×2 (03:11→06:16)
[2022-01-02] MEDS: LEVOTHYROXINE NA 25 MCG TABLET (FP) PO SCH (06:44)
[2022-01-02 08:19] LABS: BASO % 0.3 % (0-2.0); EOS % 1.9 % (0-4.5); HEMATOCRIT 25.1 % (32.4-45.2); HEMOGLOBIN 8.2 GM/dL (10.7-15.3); MCH 29.8 pg (25.7-33.7); MCHC 32.7 g/dl (32.0-36.0); MEAN PLT VOLUME 6.8 fl (7.5-11.1); MONO % 11.4 % (3.8-10.2); NEUT % 74.4 % (42.8-82.8); PLATELET COUNT 113 10^3/uL (134-434); RBC 2.76 M/mm3 (3.60-5.2); RDW 14.9 % (11.6-15.6); WHITE BLOOD COUNT 2.8 K/mm3 (4.0-10.0)
[2022-01-02 08:29] LABS: CALCIUM 7.2 mg/dL (8.5-10.1)
[2022-01-02 08:30] LABS: BLOOD UREA NITROGEN 12.8 mg/dL (7-18); MAGNESIUM 1.9 mg/dL (1.8-2.4)
[2022-01-02 08:33] LABS: CREATININE 0.8 mg/dL (0.55-1.3)
[2022-01-02] MEDS ORDERED: CEFTRIAXONE 1 GM in DEXTROSE 5%-WATER - 50 ML IVPB SCH (10:00)
[2022-01-02] MEDS: FLUTICASONE/UMECLIDIN/VILANTER(200-62.5-25 TRELEGY ELLIPTA) INAHLER IH SCH (10:43)
[2022-01-02] MEDS: CITALOPRAM HYDROBROMIDE 20 MG TABLET PO SCH (10:43)
[2022-01-02] MEDS: ANASTROZOLE 1 MG TABLET PO SCH (10:43)
[2022-01-02] MEDS: metoPROLOL SUCCINATE 25 MG TAB.SR.24H (FP) PO SCH (10:44)
[2022-01-02] MEDS: GABAPENTIN 300 MG CAPSULE PO SCH ×2 (10:44→22:08)
[2022-01-02] MEDS ORDERED: TETRAHYDROZOLINE HCL EYE DROPS OU PRN (10:46)
[2022-01-02] MEDS: LACTATED RINGERS SOLUTION 1,000 ML/1,000 ML INFUS.BAG IV SCH (12:59)
[2022-01-02] MEDS: ERTAPENEM SODIUM 1 GM in SODIUM CHLORIDE 50 ML IVPB SCH (12:59)
[2022-01-02] MEDS: ATORVASTATIN CA 40 MG TABLET (FP) PO SCH (22:08)
[2022-01-02] MEDS: QUEtiapine FUMARATE 25 MG TABLET PO SCH (22:08)
[2022-01-02] MEDS: DOCUSATE SODIUM 100 MG CAPSULE (FP) PO SCH (22:15)
[2022-01-03] MEDS: LACTATED RINGERS SOLUTION 1,000 ML/1,000 ML INFUS.BAG IV SCH (06:54)
[2022-01-03] MEDS: LEVOTHYROXINE NA 25 MCG TABLET (FP) PO SCH (06:55)
[2022-01-03] MEDS: FLUTICASONE/UMECLIDIN/VILANTER(200-62.5-25 TRELEGY ELLIPTA) INAHLER IH SCH (10:24)
[2022-01-03] MEDS: LORATADINE 10 MG TABLET PO SCH (10:24)
[2022-01-03] MEDS: GABAPENTIN 300 MG CAPSULE PO SCH ×2 (10:24→22:40)
[2022-01-03] MEDS: metoPROLOL SUCCINATE 25 MG TAB.SR.24H (FP) PO SCH (10:24)
[2022-01-03] MEDS: PANTOPRAZOLE 40 MG TABLET PO SCH (10:24)
[2022-01-03] MEDS: CITALOPRAM HYDROBROMIDE 20 MG TABLET PO SCH (10:24)
[2022-01-03] MEDS: ERTAPENEM SODIUM 1 GM in SODIUM CHLORIDE 50 ML IVPB SCH (10:25)
[2022-01-03] MEDS: ANASTROZOLE 1 MG TABLET PO SCH (10:25)
[2022-01-03] MEDS: PATIENT'S OWN MEDICATION (NON-FORMULARY) (Denosumab 60 MG/ML Disp.Syrin) SQ SCH (15:40)
[2022-01-03] MEDS: DOCUSATE SODIUM 100 MG CAPSULE (FP) PO SCH (22:39)
[2022-01-03] MEDS: QUEtiapine FUMARATE 25 MG TABLET PO SCH (22:39)
[2022-01-03] MEDS: ATORVASTATIN CA 40 MG TABLET (FP) PO SCH (22:40)
[2022-01-04] MEDS: LEVOTHYROXINE NA 25 MCG TABLET (FP) PO SCH (06:39)
[2022-01-04 09:02] LABS: HEMATOCRIT 24.1 % (32.4-45.2); MCH 29.9 pg (25.7-33.7); MCHC 33.1 g/dl (32.0-36.0); MEAN CELL VOLUME 90.3 fl (80-96); MEAN PLT VOLUME 7.1 fl (7.5-11.1); PLATELET COUNT 128 10^3/uL (134-434); RBC 2.67 M/mm3 (3.60-5.2); RDW 14.3 % (11.6-15.6)
[2022-01-04 09:08] LABS: CALCIUM 7.4 mg/dL (8.5-10.1)
[2022-01-04 09:09] LABS: BLOOD UREA NITROGEN 8.4 mg/dL (7-18)
[2022-01-04 09:11] LABS: WHITE BLOOD COUNT 1.7 K/mm3 (4.0-10.0)
[2022-01-04 09:12] LABS: CREATININE 0.6 mg/dL (0.55-1.3)
[2022-01-04 09:51] LABS: ANISOCYTOSIS 0; HELMET CELLS 0; HOWELL-JOLLY BODIES 0; MACROCYTOSIS 0; OVALOCYTE 0; ROULEAU 0; SICKELED CELLS 0; TARGET CELLS 0; TEAR DROP CELLS 0; TOXIC GRANULATION 0
[2022-01-04] MEDS: ANASTROZOLE 1 MG TABLET PO SCH (10:12)
[2022-01-04] MEDS: metoPROLOL SUCCINATE 25 MG TAB.SR.24H (FP) PO SCH (10:12)
[2022-01-04] MEDS: LORATADINE 10 MG TABLET PO SCH (10:13)
[2022-01-04] MEDS: FLUTICASONE PROP 0.05% 16 GM NASAL SPRAY NS SCH ×2 (10:13→10:48)
[2022-01-04] MEDS: CITALOPRAM HYDROBROMIDE 20 MG TABLET PO SCH (10:13)
[2022-01-04] MEDS: FLUTICASONE/UMECLIDIN/VILANTER(200-62.5-25 TRELEGY ELLIPTA) INAHLER IH SCH (10:13)
[2022-01-04] MEDS: GABAPENTIN 300 MG CAPSULE PO SCH ×2 (10:13→22:09)
[2022-01-04] MEDS: PANTOPRAZOLE 40 MG TABLET PO SCH (10:13)
[2022-01-04] MEDS: ERTAPENEM SODIUM 1 GM in SODIUM CHLORIDE 50 ML IVPB SCH (13:56)
[2022-01-04] MEDS: QUEtiapine FUMARATE 25 MG TABLET PO SCH (22:09)
[2022-01-04] MEDS: DOCUSATE SODIUM 100 MG CAPSULE (FP) PO SCH (22:09)
[2022-01-04] MEDS: ATORVASTATIN CA 40 MG TABLET (FP) PO SCH (22:09)
[2022-01-05] MEDS: LEVOTHYROXINE NA 25 MCG TABLET (FP) PO SCH (07:34)
[2022-01-05] MEDS: CITALOPRAM HYDROBROMIDE 20 MG TABLET PO SCH (10:26)
[2022-01-05] MEDS: LORATADINE 10 MG TABLET PO SCH (10:26)
[2022-01-05] MEDS: ANASTROZOLE 1 MG TABLET PO SCH (10:26)
[2022-01-05] MEDS: ERTAPENEM SODIUM 1 GM in SODIUM CHLORIDE 50 ML IVPB SCH (10:27)
[2022-01-05] MEDS: GABAPENTIN 300 MG CAPSULE PO SCH ×2 (10:28→21:32)
[2022-01-05] MEDS: PANTOPRAZOLE 40 MG TABLET PO SCH (10:28)
[2022-01-05] MEDS: metoPROLOL SUCCINATE 25 MG TAB.SR.24H (FP) PO SCH (10:29)
[2022-01-05] MEDS: FLUTICASONE/UMECLIDIN/VILANTER(200-62.5-25 TRELEGY ELLIPTA) INAHLER IH SCH (10:34)
[2022-01-05] MEDS: FLUTICASONE PROP 0.05% 16 GM NASAL SPRAY NS SCH (13:43)
[2022-01-05 14:02] LABS: HEMATOCRIT 25.9 % (32.4-45.2); HEMOGLOBIN 8.4 GM/dL (10.7-15.3); MCH 29.3 pg (25.7-33.7); MCHC 32.6 g/dl (32.0-36.0); MEAN PLT VOLUME 6.9 fl (7.5-11.1); PLATELET COUNT 159 10^3/uL (134-434); RBC 2.87 M/mm3 (3.60-5.2); RDW 14.1 % (11.6-15.6)
[2022-01-05 14:16] LABS: CALCIUM 7.7 mg/dL (8.5-10.1)
[2022-01-05 14:17] LABS: BLOOD UREA NITROGEN 9.6 mg/dL (7-18); MAGNESIUM 2.2 mg/dL (1.8-2.4)
[2022-01-05 14:20] LABS: CREATININE 0.6 mg/dL (0.55-1.3)
[2022-01-05 15:06] LABS: ANISOCYTOSIS 3+; MACROCYTOSIS 0
[2022-01-05] MEDS ORDERED: clonazePAM 0.5 MG TABLET PO PRN (16:22)
[2022-01-05] MEDS: DOCUSATE SODIUM 100 MG CAPSULE (FP) PO SCH (21:31)
[2022-01-05] MEDS: QUEtiapine FUMARATE 25 MG TABLET PO SCH (21:32)
[2022-01-05] MEDS: ATORVASTATIN CA 40 MG TABLET (FP) PO SCH (21:32)
[2022-01-05] MEDS ORDERED: PATIENT'S OWN MEDICATION (NON-FORMULARY) (Clonazepam [Clonazepam] 1 MG Tablet) PO SCH (22:00)
[2022-01-06] MEDS: LEVOTHYROXINE NA 25 MCG TABLET (FP) PO SCH (06:32)
[2022-01-06] MEDS: LORATADINE 10 MG TABLET PO SCH (09:38)
[2022-01-06] MEDS: CITALOPRAM HYDROBROMIDE 20 MG TABLET PO SCH (09:38)
[2022-01-06] MEDS: ANASTROZOLE 1 MG TABLET PO SCH (09:38)
[2022-01-06] MEDS: FLUTICASONE PROP 0.05% 16 GM NASAL SPRAY NS SCH (09:39)
[2022-01-06] MEDS: ASCORBIC ACID 500 MG TABLET (FP) PO SCH (09:39)
[2022-01-06] MEDS: metoPROLOL SUCCINATE 25 MG TAB.SR.24H (FP) PO SCH (09:40)
[2022-01-06] MEDS: GABAPENTIN 300 MG CAPSULE PO SCH ×2 (09:40→21:56)
[2022-01-06] MEDS: FLUTICASONE/UMECLIDIN/VILANTER(200-62.5-25 TRELEGY ELLIPTA) INAHLER IH SCH (09:41)
[2022-01-06] MEDS: CHOLECALCIFEROL (VIT D3) 1,000 UNIT (25 MCG) TABLET PO SCH (09:41)
[2022-01-06 14:28] LABS: HEMATOCRIT 24.5 % (32.4-45.2); MCH 29.1 pg (25.7-33.7); MCHC 32.7 g/dl (32.0-36.0); MEAN CELL VOLUME 88.9 fl (80-96); MEAN PLT VOLUME 6.7 fl (7.5-11.1); PLATELET COUNT 160 10^3/uL (134-434); RBC 2.76 M/mm3 (3.60-5.2); RDW 14.2 % (11.6-15.6)
[2022-01-06 14:38] LABS: WHITE BLOOD COUNT 1.6 K/mm3 (4.0-10.0)
[2022-01-06 14:53] LABS: CALCIUM 8.2 mg/dL (8.5-10.1)
[2022-01-06 14:54] LABS: BLOOD UREA NITROGEN 9.2 mg/dL (7-18)
[2022-01-06 14:57] LABS: CREATININE 0.7 mg/dL (0.55-1.3)
[2022-01-06 15:11] LABS: ANISOCYTOSIS 0; HELMET CELLS 0; HOWELL-JOLLY BODIES 0; MACROCYTOSIS 0; OVALOCYTE 0; ROULEAU 0; SICKELED CELLS 0; TARGET CELLS 0; TEAR DROP CELLS 0; TOXIC GRANULATION 0
[2022-01-06] MEDS: ATORVASTATIN CA 40 MG TABLET (FP) PO SCH (21:56)
[2022-01-06] MEDS: DOCUSATE SODIUM 100 MG CAPSULE (FP) PO SCH (21:56)
[2022-01-06] MEDS ORDERED: LEVALBUTEROL HCL 0.31 MG/3 ML VIAL.NEB IH PRN (23:46)
[2022-01-07] MEDS: LEVOTHYROXINE NA 25 MCG TABLET (FP) PO SCH (06:27)
[2022-01-07 08:25] VITALS: RESP 18
[2022-01-07 09:01] LABS: BASO % 0.6 % (0-2.0); EOS % 14.2 % (0-4.5); HEMATOCRIT 26.5 % (32.4-45.2); HEMOGLOBIN 8.8 GM/dL (10.7-15.3); LYMPH % 40.6 % (8-40); MCH 29.6 pg (25.7-33.7); MCHC 33.2 g/dl (32.0-36.0); MEAN CELL VOLUME 89.2 fl (80-96); MEAN PLT VOLUME 6.9 fl (7.5-11.1); MONO % 14.6 % (3.8-10.2); PLATELET COUNT 193 10^3/uL (134-434); RBC 2.97 M/mm3 (3.60-5.2); WHITE BLOOD COUNT 2.2 K/mm3 (4.0-10.0)
[2022-01-07 09:45] LABS: CALCIUM 8.3 mg/dL (8.5-10.1)
[2022-01-07 09:46] LABS: BLOOD UREA NITROGEN 12.3 mg/dL (7-18)
[2022-01-07 09:49] LABS: CREATININE 0.6 mg/dL (0.55-1.3)
[2022-01-07] MEDS: CITALOPRAM HYDROBROMIDE 20 MG TABLET PO SCH (09:50)
[2022-01-07] MEDS: ANASTROZOLE 1 MG TABLET PO SCH (09:50)
[2022-01-07] MEDS: metoPROLOL SUCCINATE 25 MG TAB.SR.24H (FP) PO SCH (09:51)
[2022-01-07] MEDS: GABAPENTIN 300 MG CAPSULE PO SCH ×2 (09:51→22:54)
[2022-01-07] MEDS: LORATADINE 10 MG TABLET PO SCH (09:51)
[2022-01-07] MEDS: CHOLECALCIFEROL (VIT D3) 1,000 UNIT (25 MCG) TABLET PO SCH (09:52)
[2022-01-07] MEDS: ASCORBIC ACID 500 MG TABLET (FP) PO SCH (09:52)
[2022-01-07] MEDS: FLUTICASONE/UMECLIDIN/VILANTER(200-62.5-25 TRELEGY ELLIPTA) INAHLER IH SCH (09:54)
[2022-01-07] MEDS: FLUTICASONE PROP 0.05% 16 GM NASAL SPRAY NS SCH (09:54)
[2022-01-07] MEDS: ATORVASTATIN CA 40 MG TABLET (FP) PO SCH (22:54)
[2022-01-07] MEDS: DOCUSATE SODIUM 100 MG CAPSULE (FP) PO SCH (22:54)
[2022-01-08] MEDS: LEVOTHYROXINE NA 25 MCG TABLET (FP) PO SCH (06:20)
[2022-01-08 06:52] VITALS: BP 126/54; PULSE 78; TEMP 98.9
[2022-01-08] MEDS: FLUTICASONE PROP 0.05% 16 GM NASAL SPRAY NS SCH (10:34)
[2022-01-08] MEDS: CHOLECALCIFEROL (VIT D3) 1,000 UNIT (25 MCG) TABLET PO SCH (10:35)
[2022-01-08] MEDS: LORATADINE 10 MG TABLET PO SCH (10:35)
[2022-01-08] MEDS: ASCORBIC ACID 500 MG TABLET (FP) PO SCH (10:35)
[2022-01-08] MEDS: FLUTICASONE/UMECLIDIN/VILANTER(200-62.5-25 TRELEGY ELLIPTA) INAHLER IH SCH (10:35)
[2022-01-08] MEDS: CITALOPRAM HYDROBROMIDE 20 MG TABLET PO SCH (10:36)
[2022-01-08] MEDS: ANASTROZOLE 1 MG TABLET PO SCH (10:36)
[2022-01-08] MEDS: GABAPENTIN 300 MG CAPSULE PO SCH (10:36)
[2022-01-08] MEDS: metoPROLOL SUCCINATE 25 MG TAB.SR.24H (FP) PO SCH (10:36)
[2022-01-08 12:20] LABS: EOS % 8.2 % (0-4.5); HEMATOCRIT 25.5 % (32.4-45.2); HEMOGLOBIN 8.5 GM/dL (10.7-15.3); LYMPH % 32.4 % (8-40); MCH 29.7 pg (25.7-33.7); MCHC 33.4 g/dl (32.0-36.0); MEAN PLT VOLUME 6.7 fl (7.5-11.1); MONO % 17.3 % (3.8-10.2); NEUT % 41.1 % (42.8-82.8); PLATELET COUNT 229 10^3/uL (134-434); RBC 2.86 M/mm3 (3.60-5.2); WHITE BLOOD COUNT 2.4 K/mm3 (4.0-10.0)
[2022-01-13 12:05] LABS: WHITE BLOOD COUNT 1.7 K/mm3 (4.0-10.0)
== END 2022-01-08 14:30 | DRG 872 ==
LOC: JER 02:00 → JERBED 05:53 → J8W 13:26
PROVIDERS: ADMIT Internal Medicine; ATTEND Internal Medicine
DX: A41.9 Sepsis, unspecified organism (principal); E87.2 Acidosis; N10 Acute pyelonephritis; N39.0 Urinary tract infection, site not specified; E03.9 Hypothyroidism, unspecified; E78.5 Hyperlipidemia, unspecified; B96.20 Unspecified Escherichia coli [E. coli] as the cause of diseases classified elsewhere; D50.9 Iron deficiency anemia, unspecified; D70.9 Neutropenia, unspecified; F41.9 Anxiety disorder, unspecified; E55.9 Vitamin D deficiency, unspecified; J44.9 Chronic obstructive pulmonary disease, unspecified
CPT/HCPCS: 0241U-QW; 36415; 70450-TC; 71045-TC-FY; 80048; 80053; 81003; 82728; 82803; 82962; 83540; 83550; 83605; 83735; 84443; 85025; 85045; 85610; 85730; 86850; 86900; 86901; 87040; 87086; 87186; 88300-TC; 93005; 93010; 97116-GP; 99285-25; C9803-CS; U0003; U0005

== ENCOUNTER 2022-04-26 13:08 | Emergency (ER) | payer OTHER ==
[2022-04-26 13:27] VITALS: BP 103/75; PULSE 107; RESP 18; TEMP 97.7; BMI 24.3
[2022-04-26] MEDS ORDERED: ACETAMINOPHEN 500 MG TABLET (FP) PO ONE (13:48)
[2022-04-26] MEDS ORDERED: ACETAMINOPHEN 325 MG TABLET (FP) ONE (14:31)
== END 2022-04-26 18:10 ==
LOC: JER 13:08
DX: S52.502A Unspecified fracture of the lower end of left radius, initial encounter for closed fracture (principal); W01.0XXA Fall on same level from slipping, tripping and stumbling without subsequent striking against object, initial encounter
CPT/HCPCS: 73070-TC-LT-FY; 73090-TC-LT-FY; 73110-TC-LT-FY; 73130-TC-LT-FY; 99285-25

== ENCOUNTER 2022-06-15 00:34 | Observation (INO) | payer OTHER ==
[2022-06-15] MEDS ORDERED: ACETAMINOPHEN 500 MG TABLET (FP) PO ONE (01:15)
[2022-06-15] MEDS ORDERED: ACETAMINOPHEN 325 MG TABLET (FP) ONE (01:46)
[2022-06-15] MEDS ORDERED: PROPOFOL 1,000,000 MCG/100 ML VIAL ONE (02:31)
[2022-06-15] MEDS ORDERED: TRIMETHOBENZAMIDE HCL 200MG/2ML INJ IM PRN ×2 (05:36→17:29)
[2022-06-15] MEDS ORDERED: TETRAHYDROZOLINE HCL EYE DROPS OU PRN ×2 (06:08→17:29)
[2022-06-15] MEDS ORDERED: FLUTICASONE PROP 0.05% 16 GM NASAL SPRAY NS SCH (06:15)
[2022-06-15] MEDS ORDERED: LEVOTHYROXINE NA 25 MCG TABLET (FP) PO SCH (07:00)
[2022-06-15 07:25] LABS: BASO % 0.5 % (0-2.0); HEMATOCRIT 27.1 % (32.4-45.2); HEMOGLOBIN 8.9 GM/dL (10.7-15.3); LYMPH % 15.4 % (8-40); MCHC 32.8 g/dl (32.0-36.0); MEAN CELL VOLUME 94.6 fl (80-96); MEAN PLT VOLUME 6.7 fl (7.5-11.1); MONO % 11.6 % (3.8-10.2); NEUT % 68.5 % (42.8-82.8); PLATELET COUNT 222 10^3/uL (134-434); RBC 2.87 M/mm3 (3.60-5.2); RDW 14.2 % (11.6-15.6); WHITE BLOOD COUNT 5.5 K/mm3 (4.0-10.0)
[2022-06-15 09:04] LABS: INR 1.05 (0.83-1.09); PROTHROMBIN TIME (PATIENT) 12.1 SEC (9.7-13.0)
[2022-06-15 09:08] LABS: ACTIVATED PTT 30.3 SECONDS (25.2-36.5)
[2022-06-15] MEDS ORDERED: FLUTICASONE/UMECLIDIN/VILANTER(200-62.5-25 TRELEGY ELLIPTA) INAHLER IH SCH (10:00)
[2022-06-15] MEDS ORDERED: metoPROLOL SUCCINATE 25 MG TAB.SR.24H (FP) PO SCH (10:00)
[2022-06-15 10:22] LABS: CALCIUM 8.5 mg/dL (8.5-10.1)
[2022-06-15 10:26] LABS: CREATININE 0.7 mg/dL (0.55-1.3); PHOSPHOROUS 4.4 mg/dL (2.5-4.9)
[2022-06-15 10:27] LABS: TOT PROT 5.6 g/dl (6.4-8.2)
[2022-06-15 10:28] LABS: BILIRUBIN,TOTAL 0.3 mg/dL (0.2-1)
[2022-06-15] MEDS ORDERED: clonazePAM 0.5 MG TABLET ONE (11:18)
[2022-06-15] MEDS ORDERED: morphine SULFATE 4 MG/ML VIAL IVPUSH PRN (15:08)
[2022-06-15] MEDS ORDERED: ONDANSETRON 4 MG/2 ML VIAL IVPUSH PRN ×3 (15:09→17:29)
[2022-06-15] MEDS ORDERED: D5-1/2NS+10 MEQ KCL - 10 MEQ/1,000 ML INFUS.BAG IV SCH ×2 (15:15→17:29)
[2022-06-15] MEDS ORDERED: ENOXAPARIN NA (PORCINE) 40 MG/0.4 ML DISP.SYRIN SQ SCH (15:45)
[2022-06-15] MEDS ORDERED: PROPOFOL 20 ML ONE (16:17)
[2022-06-15] MEDS ORDERED: SUCCINYLCHOLINE CHLORIDE 200 MG/10 ML SYRINGE ONE (16:39)
[2022-06-15] MEDS ORDERED: LACTATED RINGERS SOLUTION 1,000 ML IV SCH ×2 (17:00→17:15)
[2022-06-15] MEDS ORDERED: FLUTICASONE PROP 0.05% 16 GM NASAL SPRAY NS PRN (17:29)
[2022-06-15] MEDS ORDERED: POLYETHYLENE GLYCOL (HEALTHYLAX) 3350 17 GM PACKET PO PRN ×2 (22:00)
[2022-06-15] MEDS ORDERED: clonazePAM 0.5 MG TABLET PO PRN (22:00)
[2022-06-15] MEDS ORDERED: GABAPENTIN 300 MG CAPSULE PO SCH (22:00)
[2022-06-15] MEDS ORDERED: DOCUSATE SODIUM 100 MG CAPSULE (FP) PO SCH (22:00)
[2022-06-15] MEDS ORDERED: ATORVASTATIN CA 40 MG TABLET (FP) PO SCH (22:00)
[2022-06-15] MEDS ORDERED: QUEtiapine FUMARATE 25 MG TABLET PO SCH (22:00)
[2022-06-16] MEDS: QUEtiapine FUMARATE 25 MG TABLET PO SCH ×2 (00:12→22:12)
[2022-06-16] MEDS: DOCUSATE SODIUM 100 MG CAPSULE (FP) PO SCH ×2 (00:12→22:12)
[2022-06-16] MEDS: GABAPENTIN 300 MG CAPSULE PO SCH ×3 (00:13→22:13)
[2022-06-16] MEDS: ATORVASTATIN CA 40 MG TABLET (FP) PO SCH ×2 (00:13→22:12)
[2022-06-16] MEDS: clonazePAM 0.5 MG TABLET PO PRN ×2 (00:24→22:12)
[2022-06-16 06:13] VITALS: BMI 25.7
[2022-06-16] MEDS: LEVOTHYROXINE NA 25 MCG TABLET (FP) PO SCH (06:48)
[2022-06-16] MEDS: metoPROLOL SUCCINATE 25 MG TAB.SR.24H (FP) PO SCH (09:29)
[2022-06-16] MEDS: PANTOPRAZOLE 40 MG TABLET PO SCH (09:29)
[2022-06-16] MEDS: ASCORBIC ACID 500 MG TABLET (FP) PO SCH (09:29)
[2022-06-16] MEDS: CITALOPRAM HYDROBROMIDE 20 MG TABLET PO SCH (09:29)
[2022-06-16] MEDS: LORATADINE 10 MG TABLET PO SCH (09:30)
[2022-06-16] MEDS: CHOLECALCIFEROL (VIT D3) 1,000 UNIT (25 MCG) TABLET PO SCH (09:30)
[2022-06-16] MEDS ORDERED: CHOLECALCIFEROL (VIT D3) 1,000 UNIT (25 MCG) TABLET PO SCH (10:00)
[2022-06-16] MEDS ORDERED: CITALOPRAM HYDROBROMIDE 20 MG TABLET PO SCH (10:00)
[2022-06-16] MEDS ORDERED: ANASTROZOLE 1 MG TABLET PO SCH (10:00)
[2022-06-16] MEDS ORDERED: LORATADINE 10 MG TABLET PO SCH (10:00)
[2022-06-16] MEDS ORDERED: ASCORBIC ACID 500 MG TABLET (FP) PO SCH (10:00)
[2022-06-16] MEDS ORDERED: PANTOPRAZOLE 40 MG TABLET PO SCH (10:00)
[2022-06-16] MEDS: FLUTICASONE/UMECLIDIN/VILANTER(200-62.5-25 TRELEGY ELLIPTA) INAHLER IH SCH (11:26)
[2022-06-16] MEDS: ANASTROZOLE 1 MG TABLET PO SCH (11:37)
[2022-06-17] MEDS: LEVOTHYROXINE NA 25 MCG TABLET (FP) PO SCH (06:10)
[2022-06-17] MEDS ORDERED: morphine SO4 SUSTAINED ACTING 15 MG TABLET.SA PO PRN (08:50)
[2022-06-17] MEDS: ASCORBIC ACID 500 MG TABLET (FP) PO SCH (09:01)
[2022-06-17] MEDS: PANTOPRAZOLE 40 MG TABLET PO SCH (09:01)
[2022-06-17] MEDS: ANASTROZOLE 1 MG TABLET PO SCH (09:01)
[2022-06-17] MEDS: GABAPENTIN 300 MG CAPSULE PO SCH (09:03)
[2022-06-17] MEDS: CITALOPRAM HYDROBROMIDE 20 MG TABLET PO SCH (09:03)
[2022-06-17] MEDS: CHOLECALCIFEROL (VIT D3) 1,000 UNIT (25 MCG) TABLET PO SCH (09:03)
[2022-06-17] MEDS: LORATADINE 10 MG TABLET PO SCH (09:03)
[2022-06-17] MEDS: metoPROLOL SUCCINATE 25 MG TAB.SR.24H (FP) PO SCH (09:04)
[2022-06-17] MEDS: FLUTICASONE/UMECLIDIN/VILANTER(200-62.5-25 TRELEGY ELLIPTA) INAHLER IH SCH (09:08)
[2022-06-17] MEDS: clonazePAM 0.5 MG TABLET PO PRN (09:19)
[2022-06-17] MEDS ORDERED: FERROUS SO4 325 MG TABLET (FP) PO SCH ×2 (10:00)
[2022-06-17] MEDS ORDERED: ENOXAPARIN NA (PORCINE) 40 MG/0.4 ML DISP.SYRIN SQ SCH (10:00)
[2022-06-17 11:09] LABS: BASO % 0.5 % (0-2.0); HEMATOCRIT 26.2 % (32.4-45.2); HEMOGLOBIN 8.6 GM/dL (10.7-15.3); LYMPH % 17.6 % (8-40); MCH 30.9 pg (25.7-33.7); MEAN CELL VOLUME 93.9 fl (80-96); MEAN PLT VOLUME 6.4 fl (7.5-11.1); MONO % 11.2 % (3.8-10.2); NEUT % 62.7 % (42.8-82.8); PLATELET COUNT 229 10^3/uL (134-434); RBC 2.79 M/mm3 (3.60-5.2); RDW 14.1 % (11.6-15.6); WHITE BLOOD COUNT 4.1 K/mm3 (4.0-10.0)
[2022-06-17 11:33] LABS: BLOOD UREA NITROGEN 19.8 mg/dL (7-18)
[2022-06-17 11:36] LABS: CREATININE 0.8 mg/dL (0.55-1.3)
[2022-06-17 15:53] VITALS: BP 127/77; PULSE 96; RESP 16; TEMP 98.8
== END 2022-06-17 15:59 ==
LOC: JER 00:34 → JERBED 02:57 → J8W 20:54
PROVIDERS: ADMIT Internal Medicine; ATTEND Internal Medicine
PROC: 3E023GC Introduction of Other Therapeutic Substance into Muscle, Percutaneous Approach (ICD-10-PCS; 2022-06-15)
PROC: 3E033NZ Introduction of Analgesics, Hypnotics, Sedatives into Peripheral Vein, Percutaneous Approach (ICD-10-PCS; 2022-06-15)
PROC: 3E033GC Introduction of Other Therapeutic Substance into Peripheral Vein, Percutaneous Approach (ICD-10-PCS; 2022-06-15)
PROC: 0SWB0JZ Revision of Synthetic Substitute in Left Hip Joint, Open Approach (ICD-10-PCS; principal; 2022-06-15 14:00)
DX: S73.005A Unspecified dislocation of left hip, initial encounter (principal); X58.XXXA Exposure to other specified factors, initial encounter; Z96.642 Presence of left artificial hip joint; Y93.9 Activity, unspecified; J44.9 Chronic obstructive pulmonary disease, unspecified; I10 Essential (primary) hypertension; E78.5 Hyperlipidemia, unspecified; F41.9 Anxiety disorder, unspecified; D64.89 Other specified anemias; E55.9 Vitamin D deficiency, unspecified; M81.0 Age-related osteoporosis without current pathological fracture; Z88.2 Allergy status to sulfonamides; Z88.5 Allergy status to narcotic agent; Z88.0 Allergy status to penicillin; Z91.040 Latex allergy status
CPT/HCPCS: 36415; 72170-TC-FY; 73502-TC-LT-FY; 73521-TC-FY; 73552-TC-LT-FY; 76000-TC-FY; 80048; 80053; 83735; 84100; 85025; 85610; 85730; 86850; 86900; 86901; 93005; 93010; 94010; 94760; 96372; 96374; 96375; 96376; 97116-GP; 97161-GP; 99285-25; C9803-CS; G0378; U0003; U0005

== ENCOUNTER 2022-08-02 14:16 | Inpatient (IN) | payer OTHER ==
[2022-08-02] MEDS ORDERED: ACETAMINOPHEN 500 MG TABLET (FP) PO ONE (15:36)
[2022-08-02] MEDS ORDERED: morphine CARPU-JECT 2 MG/1 ML DISP.SYRIN IVPUSH ONE ×2 (15:50→16:38)
[2022-08-02] MEDS ORDERED: ONDANSETRON 4 MG/2 ML VIAL IVPUSH ONE (16:41)
[2022-08-02 17:02] LABS: BASO % 0.4 % (0-2.0); EOS % 2.1 % (0-4.5); HEMATOCRIT 34.5 % (32.4-45.2); HEMOGLOBIN 11.4 GM/dL (10.7-15.3); LYMPH % 11.4 % (8-40); MCH 30.3 pg (25.7-33.7); MCHC 33.1 g/dl (32.0-36.0); MEAN CELL VOLUME 91.4 fl (80-96); MEAN PLT VOLUME 6.6 fl (7.5-11.1); MONO % 6.1 % (3.8-10.2); PLATELET COUNT 245 10^3/uL (134-434); RBC 3.77 M/mm3 (3.60-5.2); RDW 13.4 % (11.6-15.6); WHITE BLOOD COUNT 7.9 K/mm3 (4.0-10.0)
[2022-08-02 17:13] LABS: INR 0.99 (0.83-1.09); PROTHROMBIN TIME (PATIENT) 11.5 SEC (9.7-13.0)
[2022-08-02] MEDS ORDERED: ONDANSETRON 4 MG/2 ML VIAL ONE (17:15)
[2022-08-02 17:23] LABS: ALBUMIN 3.7 g/dl (3.4-5.0); CALCIUM 9.4 mg/dL (8.5-10.1)
[2022-08-02 17:24] LABS: BLOOD UREA NITROGEN 17.9 mg/dL (7-18)
[2022-08-02 17:26] LABS: CREATININE 0.8 mg/dL (0.55-1.3)
[2022-08-02 17:28] LABS: BILIRUBIN,TOTAL 0.4 mg/dL (0.2-1); TOT PROT 6.2 g/dl (6.4-8.2)
[2022-08-02] MEDS ORDERED: POLYETHYLENE GLYCOL (HEALTHYLAX) 3350 17 GM PACKET PO PRN (17:46)
[2022-08-02] MEDS ORDERED: clonazePAM 0.5 MG TABLET PO PRN (17:46)
[2022-08-02] MEDS ORDERED: PATIENT'S OWN MEDICATION (NON-FORMULARY) (Clonazepam [Clonazepam] 1 MG Tablet) PO PRN (17:46)
[2022-08-02] MEDS ORDERED: ALBUTEROL SO4 0.083% IH SOL 2.5 MG/3 ML VIAL.NEB. NEB PRN (18:57)
[2022-08-02 19:05] LABS: URINE APPEARANCE CLEAR; URINE BILIRUBIN NEGATIVE (NEGATIVE); URINE COLOR YELLOW; URINE GLUCOSE (UA) NEGATIVE (NEGATIVE); URINE KETONE NEGATIVE (NEGATIVE); URINE LEUK ESTERASE NEGATIVE (NEGATIVE); URINE NITRITE NEGATIVE (NEGATIVE); URINE PROTEIN NEGATIVE (NEGATIVE); URINE UROBILINOGEN 0.2 mg/dL (0.2-1.0)
[2022-08-02] MEDS ORDERED: DOCUSATE SODIUM 100 MG CAPSULE (FP) PO SCH (22:00)
[2022-08-02] MEDS ORDERED: GABAPENTIN 300 MG CAPSULE PO SCH (22:00)
[2022-08-02] MEDS ORDERED: ATORVASTATIN CA 40 MG TABLET (FP) PO SCH (22:00)
[2022-08-02] MEDS ORDERED: QUEtiapine FUMARATE 25 MG TABLET PO SCH (22:00)
[2022-08-02] MEDS: morphine SO4 SUSTAINED ACTING 15 MG TABLET.SA PO PRN (22:18)
[2022-08-02 23:53] VITALS: BMI 23.6
[2022-08-03] MEDS ORDERED: LEVOTHYROXINE NA 25 MCG TABLET (FP) PO SCH (07:00)
[2022-08-03] MEDS: morphine SO4 SUSTAINED ACTING 15 MG TABLET.SA PO PRN (07:17)
[2022-08-03] MEDS ORDERED: ONDANSETRON 4 MG/2 ML VIAL IVPUSH PRN ×4 (08:46→14:28)
[2022-08-03] MEDS ORDERED: SODIUM CHLORIDE 1,000 ML IV SCH ×2 (09:00→14:28)
[2022-08-03] MEDS: morphine SULFATE 4 MG/ML VIAL IVPUSH PRN ×2 (09:05→13:06)
[2022-08-03] MEDS ORDERED: ENOXAPARIN NA (PORCINE) 40 MG/0.4 ML DISP.SYRIN SQ SCH (10:00)
[2022-08-03] MEDS ORDERED: metoPROLOL SUCCINATE 25 MG TAB.SR.24H (FP) PO SCH (10:00)
[2022-08-03] MEDS ORDERED: FLUTICASONE/UMECLIDIN/VILANTER(200-62.5-25 TRELEGY ELLIPTA) INAHLER IH SCH (10:00)
[2022-08-03] MEDS ORDERED: CITALOPRAM HYDROBROMIDE 20 MG TABLET PO SCH (10:00)
[2022-08-03] MEDS ORDERED: PANTOPRAZOLE 40 MG TABLET PO SCH (10:00)
[2022-08-03] MEDS ORDERED: FERROUS SO4 325 MG TABLET (FP) PO SCH (10:00)
[2022-08-03] MEDS ORDERED: LORATADINE 10 MG TABLET PO SCH (10:00)
[2022-08-03] MEDS ORDERED: MIDAZOLAM HCL 2 MG/2 ML SINGLE DOSE VIAL ONE (14:00)
[2022-08-03] MEDS ORDERED: LACTATED RINGERS SOLUTION 1,000 ML IV SCH ×2 (14:00→14:28)
[2022-08-03] MEDS ORDERED: PROPOFOL 20 ML ONE (14:00)
[2022-08-03] MEDS ORDERED: PROMETHAZINE HCL 25 MG/1 ML VIAL IVPB PRN ×2 (14:00→14:28)
[2022-08-03] MEDS ORDERED: ACETAMINOPHEN 1000 MG/100 ML BAG IVPB ONE ×2 (14:01→14:28)
[2022-08-03] MEDS ORDERED: LIDOCAINE HCL/PF 2% SDV 5ML VIAL ONE (14:03)
[2022-08-03] MEDS ORDERED: SUCCINYLCHOLINE CHLORIDE 200 MG/10 ML SYRINGE ONE (14:06)
[2022-08-03] MEDS ORDERED: KETOROLAC TROMETHAMINE 30 MG/1 ML VIAL ONE (14:09)
[2022-08-03] MEDS ORDERED: POLYETHYLENE GLYCOL (HEALTHYLAX) 3350 17 GM PACKET PO PRN (14:28)
[2022-08-03] MEDS ORDERED: clonazePAM 0.5 MG TABLET PO PRN (14:28)
[2022-08-03] MEDS ORDERED: morphine SULFATE 4 MG/ML VIAL IVPUSH PRN (14:28)
[2022-08-03] MEDS ORDERED: ALBUTEROL SO4 0.083% IH SOL 2.5 MG/3 ML VIAL.NEB. NEB PRN (14:28)
[2022-08-03] MEDS ORDERED: QUEtiapine FUMARATE 25 MG TABLET PO SCH (22:00)
[2022-08-03] MEDS ORDERED: ATORVASTATIN CA 40 MG TABLET (FP) PO SCH (22:00)
[2022-08-03] MEDS: DOCUSATE SODIUM 100 MG CAPSULE (FP) PO SCH ×2 (22:04→22:05)
[2022-08-03] MEDS: GABAPENTIN 300 MG CAPSULE PO SCH (22:04)
[2022-08-04] MEDS ORDERED: LEVOTHYROXINE NA 25 MCG TABLET (FP) PO SCH (07:00)
[2022-08-04 08:08] LABS: BASO % 0.3 % (0-2.0); EOS % 4.5 % (0-4.5); HEMATOCRIT 30.1 % (32.4-45.2); HEMOGLOBIN 10.1 GM/dL (10.7-15.3); LYMPH % 18.9 % (8-40); MCH 31.1 pg (25.7-33.7); MCHC 33.6 g/dl (32.0-36.0); MEAN CELL VOLUME 92.8 fl (80-96); MONO % 9.6 % (3.8-10.2); NEUT % 66.7 % (42.8-82.8); PLATELET COUNT 173 10^3/uL (134-434); RBC 3.24 M/mm3 (3.60-5.2); RDW 13.2 % (11.6-15.6); WHITE BLOOD COUNT 5.4 K/mm3 (4.0-10.0)
[2022-08-04 08:28] LABS: BLOOD UREA NITROGEN 26.1 mg/dL (7-18)
[2022-08-04 08:31] LABS: CREATININE 1.1 mg/dL (0.55-1.3)
[2022-08-04 08:57] LABS: CALCIUM 7.6 mg/dL (8.5-10.1)
[2022-08-04] MEDS: GABAPENTIN 300 MG CAPSULE PO SCH (09:50)
[2022-08-04] MEDS ORDERED: ENOXAPARIN NA (PORCINE) 40 MG/0.4 ML DISP.SYRIN SQ SCH (10:00)
[2022-08-04] MEDS ORDERED: ANASTROZOLE 1 MG TABLET PO SCH (10:00)
[2022-08-04] MEDS ORDERED: FERROUS SO4 325 MG TABLET (FP) PO SCH (10:00)
[2022-08-04] MEDS ORDERED: CITALOPRAM HYDROBROMIDE 20 MG TABLET PO SCH (10:00)
[2022-08-04] MEDS ORDERED: LORATADINE 10 MG TABLET PO SCH (10:00)
[2022-08-04] MEDS ORDERED: metoPROLOL SUCCINATE 25 MG TAB.SR.24H (FP) PO SCH (10:00)
[2022-08-04] MEDS ORDERED: FLUTICASONE/UMECLIDIN/VILANTER(200-62.5-25 TRELEGY ELLIPTA) INAHLER IH SCH (10:00)
[2022-08-04] MEDS ORDERED: PANTOPRAZOLE 40 MG TABLET PO SCH (10:00)
[2022-08-04 14:50] VITALS: RESP 22
[2022-08-04 18:29] VITALS: BP 100/48; PULSE 82; TEMP 98.8
== END 2022-08-04 18:59 | DRG 537 ==
LOC: JER 14:16 → INTOOBSV 17:10 → UNDOADMOB 17:10 → JERBED 17:10 → INTOOBSV 18:40 → OBSVTOIN 18:40 → JERBED 18:40 → J4W 20:32
PROVIDERS: ADMIT Internal Medicine; ATTEND Internal Medicine
PROC: 0SSBXZZ Reposition Left Hip Joint, External Approach (ICD-10-PCS; principal; 2022-08-03 14:30)
DX: S73.005A Unspecified dislocation of left hip, initial encounter (principal); C34.90 Malignant neoplasm of unspecified part of unspecified bronchus or lung; M25.552 Pain in left hip; I10 Essential (primary) hypertension; E03.9 Hypothyroidism, unspecified; I25.10 Atherosclerotic heart disease of native coronary artery without angina pectoris; M81.0 Age-related osteoporosis without current pathological fracture; E78.5 Hyperlipidemia, unspecified; K21.9 Gastro-esophageal reflux disease without esophagitis; Z85.42 Personal history of malignant neoplasm of other parts of uterus; J45.909 Unspecified asthma, uncomplicated; J44.9 Chronic obstructive pulmonary disease, unspecified; W19.XXXA Unspecified fall, initial encounter; Y93.9 Activity, unspecified; Y92.89 Other specified places as the place of occurrence of the external cause; Y99.9 Unspecified external cause status
CPT/HCPCS: 36415; 72170-TC-FY; 73552-TC-LT-FY; 73562-TC-LT-FY; 76000-TC-FY; 80048; 80053; 81003; 85025; 85610; 85730; 86850; 86900; 86901; 87086; 93005; 93010; 94660; 94760; 97116-GP; 97161-GP; 99285-25; C9803-CS; U0003; U0005

== ENCOUNTER 2022-12-26 20:20 | Inpatient (IN) | payer OTHER ==
[2022-12-26] MEDS ORDERED: ACETAMINOPHEN 1000 MG/100 ML BAG IVPB ONE (20:53)
[2022-12-26] MEDS ORDERED: morphine CARPU-JECT 4 MG/1 ML DISP.SYRIN IVPUSH ONE (20:57)
[2022-12-26] MEDS ORDERED: ACETAMINOPHEN INJECTION 100 ML IVPB ONE (21:26)
[2022-12-26] MEDS ORDERED: morphine SULFATE 4 MG/ML VIAL ONE (21:26)
[2022-12-26 21:34] LABS: BASO % 0.4 % (0-2.0); EOS % 1.4 % (0-4.5); HEMATOCRIT 37.7 % (32.4-45.2); HEMOGLOBIN 12.7 GM/dL (10.7-15.3); LYMPH % 10.6 % (8-40); MCH 29.6 pg (25.7-33.7); MCHC 33.7 g/dl (32.0-36.0); MEAN CELL VOLUME 87.9 fl (80-96); MEAN PLT VOLUME 7.1 fl (7.5-11.1); MONO % 8.1 % (3.8-10.2); NEUT % 79.5 % (42.8-82.8); PLATELET COUNT 247 10^3/uL (134-434); RBC 4.29 M/mm3 (3.60-5.2); RDW 13.7 % (11.6-15.6); WHITE BLOOD COUNT 11.6 K/mm3 (4.0-10.0)
[2022-12-26 21:52] LABS: INR 1.09 (0.83-1.09); PROTHROMBIN TIME (PATIENT) 12.6 SEC (9.7-13.0)
[2022-12-26 21:55] LABS: ACTIVATED PTT 30.6 SECONDS (25.2-36.5)
[2022-12-26 22:44] LABS: POTASSIUM 4.2 mmol/L (3.5-5.1)
[2022-12-26 22:47] LABS: ALBUMIN 3.6 g/dl (3.4-5.0); BLOOD UREA NITROGEN 20.8 mg/dL (7-18)
[2022-12-26 22:50] LABS: CREATININE 1.2 mg/dL (0.55-1.3)
[2022-12-26 22:51] LABS: BILIRUBIN,TOTAL 0.5 mg/dL (0.2-1)
[2022-12-26 22:52] LABS: TOT PROT 6.6 g/dl (6.4-8.2)
[2022-12-27] MEDS ORDERED: ACETAMINOPHEN 1000 MG/100 ML BAG IVPB PRN ×3 (01:57→12:53)
[2022-12-27] MEDS ORDERED: DEXTROSE 5%-NORMAL SALINE 1,000 ML IV SCH ×2 (02:00→12:53)
[2022-12-27] MEDS ORDERED: ACETAMINOPHEN INJECTION 100 ML IVPB ONE (05:01)
[2022-12-27] MEDS ORDERED: FLUTICASONE PROP 0.05% 16 GM NASAL SPRAY NS PRN (06:25)
[2022-12-27] MEDS ORDERED: clonazePAM 0.5 MG TABLET PO PRN ×2 (06:25→12:53)
[2022-12-27] MEDS ORDERED: ALBUTEROL SO4 0.083% IH SOL 2.5 MG/3 ML VIAL.NEB. NEB PRN ×2 (06:25→12:53)
[2022-12-27] MEDS ORDERED: DOCUSATE SODIUM 100 MG CAPSULE (FP) PO PRN ×2 (06:25→12:53)
[2022-12-27] MEDS ORDERED: LEVOTHYROXINE NA 25 MCG TABLET (FP) PO SCH (07:00)
[2022-12-27 08:36] VITALS: BMI 25.2
[2022-12-27] MEDS ORDERED: ALBUTEROL SO4 HFA INHALER IH PRN (09:18)
[2022-12-27] MEDS ORDERED: ASCORBIC ACID 500 MG TABLET (FP) PO SCH (10:00)
[2022-12-27] MEDS ORDERED: LORATADINE 10 MG TABLET PO SCH (10:00)
[2022-12-27] MEDS ORDERED: TETRAHYDROZOLINE HCL EYE DROPS OU SCH (10:00)
[2022-12-27] MEDS ORDERED: FLUTICASONE/UMECLIDIN/VILANTER(200-62.5-25 TRELEGY ELLIPTA) INAHLER IH SCH (10:00)
[2022-12-27] MEDS ORDERED: FERROUS SO4 325 MG TABLET (FP) PO SCH ×2 (10:00)
[2022-12-27] MEDS ORDERED: FAMOTIDINE 20 MG TABLET PO SCH (10:00)
[2022-12-27] MEDS ORDERED: CITALOPRAM HYDROBROMIDE 20 MG TABLET PO SCH (10:00)
[2022-12-27] MEDS ORDERED: CHOLECALCIFEROL (VIT D3) 1,000 UNIT (25 MCG) TABLET PO SCH (10:00)
[2022-12-27] MEDS ORDERED: metoPROLOL SUCCINATE 25 MG TAB.SR.24H (FP) PO SCH (10:00)
[2022-12-27] MEDS ORDERED: ANASTROZOLE 1 MG TABLET PO SCH (10:00)
[2022-12-27] MEDS ORDERED: SUCCINYLCHOLINE CHLORIDE 200 MG/10 ML SYRINGE ONE (11:16)
[2022-12-27] MEDS ORDERED: LIDOCAINE HCL/PF 2% SDV 5ML VIAL ONE (11:16)
[2022-12-27] MEDS ORDERED: PROPOFOL 20 ML ONE (11:16)
[2022-12-27] MEDS ORDERED: ONDANSETRON 4 MG/2 ML VIAL IVPUSH PRN ×2 (11:48→12:53)
[2022-12-27] MEDS ORDERED: LACTATED RINGERS SOLUTION 1,000 ML IV SCH ×2 (12:00→12:53)
[2022-12-27] MEDS ORDERED: clonazePAM 0.5 MG TABLET PO SCH (12:15)
[2022-12-27] MEDS: ALBUTEROL SO4 HFA INHALER IH PRN (17:04)
[2022-12-27] MEDS ORDERED: ALBUTEROL SO4 2.5/IPRATROPIUM 0.5 INH SOL 3 ML VIAL.NEB. NEB PRN (17:07)
[2022-12-27 18:39] LABS: PH,URINE 5.5 (5.0-8.0); URINE APPEARANCE CLEAR; URINE BILIRUBIN NEGATIVE (NEGATIVE); URINE COLOR YELLOW; URINE GLUCOSE (UA) NEGATIVE (NEGATIVE); URINE KETONE TRACE (NEGATIVE); URINE LEUK ESTERASE NEGATIVE (NEGATIVE); URINE NITRITE NEGATIVE (NEGATIVE); URINE PROTEIN NEGATIVE (NEGATIVE); URINE UROBILINOGEN 0.2 mg/dL (0.2-1.0)
[2022-12-27] MEDS: ATORVASTATIN CA 40 MG TABLET (FP) PO SCH (21:18)
[2022-12-27] MEDS: clonazePAM 0.5 MG TABLET PO SCH (21:18)
[2022-12-27] MEDS ORDERED: ATORVASTATIN CA 40 MG TABLET (FP) PO SCH (22:00)
[2022-12-28] MEDS: LEVOTHYROXINE NA 25 MCG TABLET (FP) PO SCH (06:23)
[2022-12-28] MEDS ORDERED: FLUTICASONE/UMECLIDIN/VILANTER(200-62.5-25 TRELEGY ELLIPTA) INAHLER IH SCH (10:00)
[2022-12-28] MEDS ORDERED: FERROUS SO4 325 MG TABLET (FP) PO SCH (10:00)
[2022-12-28 10:11] LABS: BASO % 0.4 % (0-2.0); EOS % 2.9 % (0-4.5); HEMATOCRIT 35.8 % (32.4-45.2); HEMOGLOBIN 11.6 GM/dL (10.7-15.3); LYMPH % 9.3 % (8-40); MCH 29.7 pg (25.7-33.7); MCHC 32.5 g/dl (32.0-36.0); MEAN CELL VOLUME 91.3 fl (80-96); MEAN PLT VOLUME 7.6 fl (7.5-11.1); MONO % 6.4 % (3.8-10.2); PLATELET COUNT 195 10^3/uL (134-434); RBC 3.92 M/mm3 (3.60-5.2); RDW 14.3 % (11.6-15.6); WHITE BLOOD COUNT 6.8 K/mm3 (4.0-10.0)
[2022-12-28] MEDS: FAMOTIDINE 20 MG TABLET PO SCH (10:27)
[2022-12-28] MEDS: metoPROLOL SUCCINATE 25 MG TAB.SR.24H (FP) PO SCH (10:27)
[2022-12-28] MEDS: CHOLECALCIFEROL (VIT D3) 1,000 UNIT (25 MCG) TABLET PO SCH (10:28)
[2022-12-28 10:29] LABS: POTASSIUM 3.7 mmol/L (3.5-5.1)
[2022-12-28] MEDS: LORATADINE 10 MG TABLET PO SCH (10:29)
[2022-12-28] MEDS: clonazePAM 0.5 MG TABLET PO SCH ×2 (10:29→21:16)
[2022-12-28] MEDS: FERROUS SO4 325 MG TABLET (FP) PO SCH (10:29)
[2022-12-28] MEDS: ASCORBIC ACID 500 MG TABLET (FP) PO SCH (10:29)
[2022-12-28 10:30] LABS: CALCIUM 7.8 mg/dL (8.5-10.1)
[2022-12-28] MEDS: FLUTICASONE PROP 0.05% 16 GM NASAL SPRAY NS PRN (10:30)
[2022-12-28] MEDS: CITALOPRAM HYDROBROMIDE 20 MG TABLET PO SCH (10:30)
[2022-12-28] MEDS: ANASTROZOLE 1 MG TABLET PO SCH (10:30)
[2022-12-28 10:31] LABS: BLOOD UREA NITROGEN 13.9 mg/dL (7-18); MAGNESIUM 1.9 mg/dL (1.8-2.4)
[2022-12-28 10:34] LABS: CREATININE 0.9 mg/dL (0.55-1.3); PHOSPHOROUS 3.1 mg/dL (2.5-4.9)
[2022-12-28] MEDS: TETRAHYDROZOLINE HCL EYE DROPS OU SCH (10:38)
[2022-12-28] MEDS: methylPREDNISolone NA SUCC 40 MG/1 ML VIAL IVPUSH SCH ×2 (12:00→17:30)
[2022-12-28] MEDS: ALBUTEROL SO4 2.5/IPRATROPIUM 0.5 INH SOL 3 ML VIAL.NEB. NEB SCH ×3 (12:03→20:05)
[2022-12-28] MEDS: guaiFENesin/D-METHORPHAN TAB.ER.12H PO SCH ×2 (12:13→21:16)
[2022-12-28] MEDS: ATORVASTATIN CA 40 MG TABLET (FP) PO SCH (21:14)
[2022-12-28] MEDS: ENOXAPARIN NA (PORCINE) 40 MG/0.4 ML DISP.SYRIN SQ SCH (21:14)
[2022-12-29] MEDS: methylPREDNISolone NA SUCC 40 MG/1 ML VIAL IVPUSH SCH ×3 (04:32→21:21)
[2022-12-29] MEDS: INSULIN SLIDING SCALE (NOVOLOG) 1 VIAL SQ SCH ×3 (06:04→16:32)
[2022-12-29] MEDS: LEVOTHYROXINE NA 25 MCG TABLET (FP) PO SCH (06:04)
[2022-12-29] MEDS: ALBUTEROL SO4 2.5/IPRATROPIUM 0.5 INH SOL 3 ML VIAL.NEB. NEB SCH ×4 (07:30→20:05)
[2022-12-29] MEDS: clonazePAM 0.5 MG TABLET PO SCH ×2 (09:17→21:20)
[2022-12-29] MEDS: FAMOTIDINE 20 MG TABLET PO SCH (09:17)
[2022-12-29] MEDS: CHOLECALCIFEROL (VIT D3) 1,000 UNIT (25 MCG) TABLET PO SCH (09:17)
[2022-12-29] MEDS: metoPROLOL SUCCINATE 25 MG TAB.SR.24H (FP) PO SCH (09:17)
[2022-12-29] MEDS: ASCORBIC ACID 500 MG TABLET (FP) PO SCH (09:18)
[2022-12-29] MEDS: FERROUS SO4 325 MG TABLET (FP) PO SCH (09:18)
[2022-12-29] MEDS: CITALOPRAM HYDROBROMIDE 20 MG TABLET PO SCH (09:18)
[2022-12-29] MEDS: LORATADINE 10 MG TABLET PO SCH (09:18)
[2022-12-29] MEDS: ANASTROZOLE 1 MG TABLET PO SCH (09:19)
[2022-12-29] MEDS: ENOXAPARIN NA (PORCINE) 40 MG/0.4 ML DISP.SYRIN SQ SCH (09:19)
[2022-12-29] MEDS: FLUTICASONE PROP 0.05% 16 GM NASAL SPRAY NS PRN (09:50)
[2022-12-29] MEDS: TETRAHYDROZOLINE HCL EYE DROPS OU SCH (09:51)
[2022-12-29] MEDS: guaiFENesin/D-METHORPHAN TAB.ER.12H PO SCH ×2 (09:51→21:21)
[2022-12-29 11:28] LABS: HEMATOCRIT 35.3 % (32.4-45.2); MCHC 33.9 g/dl (32.0-36.0); MEAN CELL VOLUME 88.6 fl (80-96); MEAN PLT VOLUME 7.3 fl (7.5-11.1); PLATELET COUNT 195 10^3/uL (134-434); RBC 3.99 M/mm3 (3.60-5.2); WHITE BLOOD COUNT 5.5 K/mm3 (4.0-10.0)
[2022-12-29 11:52] LABS: POTASSIUM 4.1 mmol/L (3.5-5.1)
[2022-12-29 11:56] LABS: BLOOD UREA NITROGEN 17.4 mg/dL (7-18); CALCIUM 8.4 mg/dL (8.5-10.1)
[2022-12-29 11:58] LABS: ANISOCYTOSIS 0; HELMET CELLS 0; HOWELL-JOLLY BODIES 0; MACROCYTOSIS 0; OVALOCYTE 0; ROULEAU 0; SICKELED CELLS 0; TARGET CELLS 0; TEAR DROP CELLS 0; TOXIC GRANULATION 0
[2022-12-29 12:00] LABS: CREATININE 0.9 mg/dL (0.55-1.3)
[2022-12-29] MEDS ORDERED: BENZOCAINE/MENTH/CETYLPYRD CL 1 EACH LOZENGE MM PRN (17:47)
[2022-12-29] MEDS ORDERED: ACETAMINOPHEN 325 MG TABLET (FP) PO ONE (18:00)
[2022-12-29] MEDS: ATORVASTATIN CA 40 MG TABLET (FP) PO SCH (21:21)
[2022-12-29] MEDS: ACETAMINOPHEN 500 MG TABLET (FP) PO PRN (21:27)
[2022-12-30] MEDS: LEVOTHYROXINE NA 25 MCG TABLET (FP) PO SCH (06:00)
[2022-12-30] MEDS: INSULIN SLIDING SCALE (NOVOLOG) 1 VIAL SQ SCH ×3 (06:04→16:44)
[2022-12-30] MEDS: ALBUTEROL SO4 2.5/IPRATROPIUM 0.5 INH SOL 3 ML VIAL.NEB. NEB SCH ×4 (07:18→19:45)
[2022-12-30] MEDS: clonazePAM 0.5 MG TABLET PO SCH ×2 (09:27→21:31)
[2022-12-30] MEDS: metoPROLOL SUCCINATE 25 MG TAB.SR.24H (FP) PO SCH (09:28)
[2022-12-30] MEDS: FERROUS SO4 325 MG TABLET (FP) PO SCH (09:28)
[2022-12-30] MEDS: ENOXAPARIN NA (PORCINE) 40 MG/0.4 ML DISP.SYRIN SQ SCH (09:29)
[2022-12-30] MEDS: ANASTROZOLE 1 MG TABLET PO SCH (09:29)
[2022-12-30] MEDS: CHOLECALCIFEROL (VIT D3) 1,000 UNIT (25 MCG) TABLET PO SCH (09:29)
[2022-12-30] MEDS: CITALOPRAM HYDROBROMIDE 20 MG TABLET PO SCH (09:29)
[2022-12-30] MEDS: ASCORBIC ACID 500 MG TABLET (FP) PO SCH (09:29)
[2022-12-30] MEDS: LORATADINE 10 MG TABLET PO SCH (09:29)
[2022-12-30] MEDS: guaiFENesin/D-METHORPHAN TAB.ER.12H PO SCH ×2 (09:30→21:32)
[2022-12-30] MEDS: methylPREDNISolone NA SUCC 40 MG/1 ML VIAL IVPUSH SCH (09:30)
[2022-12-30] MEDS: FAMOTIDINE 20 MG TABLET PO SCH (09:30)
[2022-12-30] MEDS: TETRAHYDROZOLINE HCL EYE DROPS OU SCH (09:32)
[2022-12-30 09:55] LABS: BASO % 0.1 % (0-2.0); HEMATOCRIT 35.8 % (32.4-45.2); HEMOGLOBIN 12.3 GM/dL (10.7-15.3); LYMPH % 9.6 % (8-40); MCH 30.4 pg (25.7-33.7); MCHC 34.5 g/dl (32.0-36.0); MEAN CELL VOLUME 88.3 fl (80-96); MEAN PLT VOLUME 7.3 fl (7.5-11.1); MONO % 6.9 % (3.8-10.2); NEUT % 83.4 % (42.8-82.8); PLATELET COUNT 241 10^3/uL (134-434); RBC 4.05 M/mm3 (3.60-5.2); RDW 13.9 % (11.6-15.6); WHITE BLOOD COUNT 7.5 K/mm3 (4.0-10.0)
[2022-12-30 10:34] LABS: POTASSIUM 4.2 mmol/L (3.5-5.1)
[2022-12-30 10:36] LABS: CALCIUM 8.4 mg/dL (8.5-10.1)
[2022-12-30 10:39] LABS: CREATININE 0.9 mg/dL (0.55-1.3)
[2022-12-30] MEDS: predniSONE 10 MG TABLET (UD) PO SCH (12:59)
[2022-12-30] MEDS: POLYETHYLENE GLYCOL (HEALTHYLAX) 3350 17 GM PACKET PO SCH ×2 (16:55→21:30)
[2022-12-30] MEDS: ATORVASTATIN CA 40 MG TABLET (FP) PO SCH (21:31)
[2022-12-31] MEDS: LEVOTHYROXINE NA 25 MCG TABLET (FP) PO SCH (06:00)
[2022-12-31] MEDS: INSULIN SLIDING SCALE (NOVOLOG) 1 VIAL SQ SCH ×3 (06:10→17:14)
[2022-12-31] MEDS: ALBUTEROL SO4 2.5/IPRATROPIUM 0.5 INH SOL 3 ML VIAL.NEB. NEB SCH ×4 (07:41→20:22)
[2022-12-31] MEDS: FERROUS SO4 325 MG TABLET (FP) PO SCH (09:09)
[2022-12-31] MEDS: FAMOTIDINE 20 MG TABLET PO SCH (09:09)
[2022-12-31] MEDS: ANASTROZOLE 1 MG TABLET PO SCH (09:09)
[2022-12-31] MEDS: LORATADINE 10 MG TABLET PO SCH (09:09)
[2022-12-31] MEDS: clonazePAM 0.5 MG TABLET PO SCH ×2 (09:09→21:15)
[2022-12-31] MEDS: CITALOPRAM HYDROBROMIDE 20 MG TABLET PO SCH (09:09)
[2022-12-31] MEDS: metoPROLOL SUCCINATE 25 MG TAB.SR.24H (FP) PO SCH (09:09)
[2022-12-31] MEDS: predniSONE 10 MG TABLET (UD) PO SCH (09:09)
[2022-12-31] MEDS: guaiFENesin/D-METHORPHAN TAB.ER.12H PO SCH ×2 (09:10→21:15)
[2022-12-31] MEDS: CHOLECALCIFEROL (VIT D3) 1,000 UNIT (25 MCG) TABLET PO SCH (09:10)
[2022-12-31] MEDS: ENOXAPARIN NA (PORCINE) 40 MG/0.4 ML DISP.SYRIN SQ SCH (09:10)
[2022-12-31] MEDS: ASCORBIC ACID 500 MG TABLET (FP) PO SCH (09:10)
[2022-12-31] MEDS: POLYETHYLENE GLYCOL (HEALTHYLAX) 3350 17 GM PACKET PO SCH ×2 (09:14→21:16)
[2022-12-31] MEDS: TETRAHYDROZOLINE HCL EYE DROPS OU SCH (09:16)
[2022-12-31] MEDS: ATORVASTATIN CA 40 MG TABLET (FP) PO SCH (21:15)
[2022-12-31] MEDS: ACETAMINOPHEN 500 MG TABLET (FP) PO PRN (21:19)
[2023-01-01] MEDS: LEVOTHYROXINE NA 25 MCG TABLET (FP) PO SCH (06:21)
[2023-01-01] MEDS: INSULIN SLIDING SCALE (NOVOLOG) 1 VIAL SQ SCH ×3 (06:24→16:29)
[2023-01-01] MEDS: ALBUTEROL SO4 2.5/IPRATROPIUM 0.5 INH SOL 3 ML VIAL.NEB. NEB SCH ×4 (08:25→20:15)
[2023-01-01] MEDS: predniSONE 10 MG TABLET (UD) PO SCH (11:04)
[2023-01-01] MEDS: clonazePAM 0.5 MG TABLET PO SCH ×2 (11:05→22:00)
[2023-01-01] MEDS: CHOLECALCIFEROL (VIT D3) 1,000 UNIT (25 MCG) TABLET PO SCH (11:05)
[2023-01-01] MEDS: FERROUS SO4 325 MG TABLET (FP) PO SCH (11:05)
[2023-01-01] MEDS: ACETAMINOPHEN 500 MG TABLET (FP) PO PRN ×2 (11:06→22:02)
[2023-01-01] MEDS: FAMOTIDINE 20 MG TABLET PO SCH (11:07)
[2023-01-01] MEDS: metoPROLOL SUCCINATE 25 MG TAB.SR.24H (FP) PO SCH (11:07)
[2023-01-01] MEDS: CITALOPRAM HYDROBROMIDE 20 MG TABLET PO SCH (11:07)
[2023-01-01] MEDS: LORATADINE 10 MG TABLET PO SCH (11:07)
[2023-01-01] MEDS: ENOXAPARIN NA (PORCINE) 40 MG/0.4 ML DISP.SYRIN SQ SCH (11:08)
[2023-01-01] MEDS: ANASTROZOLE 1 MG TABLET PO SCH (11:08)
[2023-01-01] MEDS: POLYETHYLENE GLYCOL (HEALTHYLAX) 3350 17 GM PACKET PO SCH ×2 (11:08→21:59)
[2023-01-01] MEDS: guaiFENesin/D-METHORPHAN TAB.ER.12H PO SCH ×2 (11:14→22:01)
[2023-01-01] MEDS: TETRAHYDROZOLINE HCL EYE DROPS OU SCH (11:19)
[2023-01-01] MEDS: ASCORBIC ACID 500 MG TABLET (FP) PO SCH (11:58)
[2023-01-01] MEDS: ATORVASTATIN CA 40 MG TABLET (FP) PO SCH (22:01)
[2023-01-02] MEDS: LEVOTHYROXINE NA 25 MCG TABLET (FP) PO SCH (06:18)
[2023-01-02] MEDS: INSULIN SLIDING SCALE (NOVOLOG) 1 VIAL SQ SCH ×3 (06:19→16:59)
[2023-01-02] MEDS: ALBUTEROL SO4 2.5/IPRATROPIUM 0.5 INH SOL 3 ML VIAL.NEB. NEB SCH ×2 (07:35→11:50)
[2023-01-02] MEDS: CHOLECALCIFEROL (VIT D3) 1,000 UNIT (25 MCG) TABLET PO SCH (09:29)
[2023-01-02] MEDS: clonazePAM 0.5 MG TABLET PO SCH ×2 (09:29→22:13)
[2023-01-02] MEDS: ENOXAPARIN NA (PORCINE) 40 MG/0.4 ML DISP.SYRIN SQ SCH (09:29)
[2023-01-02] MEDS: LORATADINE 10 MG TABLET PO SCH (09:30)
[2023-01-02] MEDS: POLYETHYLENE GLYCOL (HEALTHYLAX) 3350 17 GM PACKET PO SCH ×2 (09:30→22:13)
[2023-01-02] MEDS: FAMOTIDINE 20 MG TABLET PO SCH (09:30)
[2023-01-02] MEDS: CITALOPRAM HYDROBROMIDE 20 MG TABLET PO SCH (09:30)
[2023-01-02] MEDS: predniSONE 10 MG TABLET (UD) PO SCH (09:30)
[2023-01-02] MEDS: ASCORBIC ACID 500 MG TABLET (FP) PO SCH (09:30)
[2023-01-02] MEDS: metoPROLOL SUCCINATE 25 MG TAB.SR.24H (FP) PO SCH (09:30)
[2023-01-02] MEDS: FERROUS SO4 325 MG TABLET (FP) PO SCH (09:30)
[2023-01-02] MEDS: ANASTROZOLE 1 MG TABLET PO SCH (09:30)
[2023-01-02] MEDS: guaiFENesin/D-METHORPHAN TAB.ER.12H PO SCH ×2 (09:31→22:14)
[2023-01-02] MEDS: TETRAHYDROZOLINE HCL EYE DROPS OU SCH (09:33)
[2023-01-02] MEDS: ATORVASTATIN CA 40 MG TABLET (FP) PO SCH (22:13)
[2023-01-03] MEDS: LEVOTHYROXINE NA 25 MCG TABLET (FP) PO SCH (07:02)
[2023-01-03] MEDS: INSULIN SLIDING SCALE (NOVOLOG) 1 VIAL SQ SCH ×3 (07:03→16:54)
[2023-01-03] MEDS: ALBUTEROL SO4 HFA INHALER IH PRN (07:09)
[2023-01-03] MEDS: CHOLECALCIFEROL (VIT D3) 1,000 UNIT (25 MCG) TABLET PO SCH (10:23)
[2023-01-03] MEDS: ENOXAPARIN NA (PORCINE) 40 MG/0.4 ML DISP.SYRIN SQ SCH (10:23)
[2023-01-03] MEDS: ASCORBIC ACID 500 MG TABLET (FP) PO SCH (10:23)
[2023-01-03] MEDS: LORATADINE 10 MG TABLET PO SCH (10:24)
[2023-01-03] MEDS: metoPROLOL SUCCINATE 25 MG TAB.SR.24H (FP) PO SCH (10:24)
[2023-01-03] MEDS: FERROUS SO4 325 MG TABLET (FP) PO SCH (10:24)
[2023-01-03] MEDS: CITALOPRAM HYDROBROMIDE 20 MG TABLET PO SCH (10:24)
[2023-01-03] MEDS: clonazePAM 0.5 MG TABLET PO SCH (10:24)
[2023-01-03] MEDS: predniSONE 10 MG TABLET (UD) PO SCH (10:24)
[2023-01-03] MEDS: guaiFENesin/D-METHORPHAN TAB.ER.12H PO SCH ×2 (10:25→21:46)
[2023-01-03] MEDS: FAMOTIDINE 20 MG TABLET PO SCH (10:25)
[2023-01-03] MEDS: ANASTROZOLE 1 MG TABLET PO SCH (10:26)
[2023-01-03] MEDS: POLYETHYLENE GLYCOL (HEALTHYLAX) 3350 17 GM PACKET PO SCH ×2 (10:26→21:46)
[2023-01-03] MEDS: TETRAHYDROZOLINE HCL EYE DROPS OU SCH (10:31)
[2023-01-03 11:05] LABS: BASO % 0.4 % (0-2.0); EOS % 2.9 % (0-4.5); HEMATOCRIT 35.9 % (32.4-45.2); HEMOGLOBIN 12.1 GM/dL (10.7-15.3); LYMPH % 16.2 % (8-40); MCH 30.3 pg (25.7-33.7); MCHC 33.7 g/dl (32.0-36.0); MEAN PLT VOLUME 7.1 fl (7.5-11.1); MONO % 8.5 % (3.8-10.2); PLATELET COUNT 284 10^3/uL (134-434); RBC 3.99 M/mm3 (3.60-5.2); RDW 14.1 % (11.6-15.6); WHITE BLOOD COUNT 8.9 K/mm3 (4.0-10.0)
[2023-01-03 11:22] LABS: POTASSIUM 3.9 mmol/L (3.5-5.1)
[2023-01-03 11:25] LABS: BLOOD UREA NITROGEN 26.3 mg/dL (7-18); CALCIUM 8.3 mg/dL (8.5-10.1)
[2023-01-03 11:28] LABS: CREATININE 0.9 mg/dL (0.55-1.3)
[2023-01-03 11:30] LABS: BILIRUBIN,TOTAL 0.3 mg/dL (0.2-1); TOT PROT 5.6 g/dl (6.4-8.2)
[2023-01-03] MEDS ORDERED: FLUTICASONE/UMECLIDIN/VILANTER(200-62.5-25 TRELEGY ELLIPTA) INAHLER IH SCH (12:00)
[2023-01-03] MEDS: ALBUTEROL SO4 0.083% IH SOL 2.5 MG/3 ML VIAL.NEB. NEB PRN ×2 (14:23→20:50)
[2023-01-03] MEDS: ATORVASTATIN CA 40 MG TABLET (FP) PO SCH (21:46)
[2023-01-03] MEDS: ACETAMINOPHEN 500 MG TABLET (FP) PO PRN (22:05)
[2023-01-03 22:22] VITALS: RESP 20
[2023-01-03 23:14] VITALS: BP 122/74; PULSE 96; TEMP 96.8
[2023-01-03] MEDS ORDERED: clonazePAM 0.5 MG TABLET PO ONE (23:30)
== END 2023-01-03 23:45 | DRG 537 ==
LOC: JER 20:20 → JERBED 12-27 01:43 → J6S 12-27 07:38 → OBSVTOIN 12-28 15:17
PROVIDERS: ADMIT Internal Medicine; ATTEND Internal Medicine
PROC: 0SSBXZZ Reposition Left Hip Joint, External Approach (ICD-10-PCS; principal; 2022-12-27 11:00)
DX: S73.002A Unspecified subluxation of left hip, initial encounter (principal); J44.1 Chronic obstructive pulmonary disease with (acute) exacerbation; J96.11 Chronic respiratory failure with hypoxia; E03.9 Hypothyroidism, unspecified; I25.10 Atherosclerotic heart disease of native coronary artery without angina pectoris; I10 Essential (primary) hypertension; E78.5 Hyperlipidemia, unspecified; K21.9 Gastro-esophageal reflux disease without esophagitis; F41.8 Other specified anxiety disorders; W19.XXXA Unspecified fall, initial encounter; Y93.9 Activity, unspecified; Y92.89 Other specified places as the place of occurrence of the external cause; Y99.9 Unspecified external cause status; M21.379 Foot drop, unspecified foot
CPT/HCPCS: 36415; 71045-TC-FY; 72148-TC; 72170-TC-FY; 73521-TC-FY; 73552-TC-LT-FY; 76000-TC-FY; 80048; 80053; 81003; 82962; 83036; 83735; 83880; 84100; 85025; 85610; 85730; 86850; 86900; 86901; 87086; 93005; 93010; 94640; 94660; 94760; 97116-GP; 97162-GP; 99285-25; G0378

== ENCOUNTER 2023-06-11 12:37 | Emergency (ER) | payer OTHER ==
[2023-06-11 13:01] VITALS: BMI 25.2
[2023-06-11 14:35] LABS: BASO % 0.7 % (0-2.0); EOS % 6.3 % (0-4.5); HEMATOCRIT 39.1 % (32.4-45.2); HEMOGLOBIN 12.6 GM/dL (10.7-15.3); MCH 29.2 pg (25.7-33.7); MCHC 32.1 g/dl (32.0-36.0); MEAN PLT VOLUME 6.8 fl (7.5-11.1); MONO % 8.8 % (3.8-10.2); NEUT % 67.2 % (42.8-82.8); PLATELET COUNT 236 10^3/uL (134-434); RDW 14.1 % (11.6-15.6); WHITE BLOOD COUNT 5.9 K/mm3 (4.0-10.0)
[2023-06-11 14:40] LABS: EPI CELLS 1 /uL (0-25.1); HYALINE CASTS 0 /uL (0-3.1); URINE APPEARANCE CLOUDY; URINE BACTERIA >9,000 /uL (0-1359); URINE BILIRUBIN NEGATIVE (NEGATIVE); URINE COLOR YELLOW; URINE GLUCOSE (UA) NEGATIVE (NEGATIVE); URINE KETONE NEGATIVE (NEGATIVE); URINE LEUK ESTERASE 2+ (NEGATIVE); URINE NITRITE POSITIVE (NEGATIVE); URINE PROTEIN TRACE (NEGATIVE); URINE RBC 24 /uL (0-23.9); URINE UROBILINOGEN 0.2 mg/dL (0.2-1.0); URINE WBC 1374 /uL (0-25.8)
[2023-06-11] MEDS ORDERED: CEFTRIAXONE 1,000 MG in DEXTROSE 5%-WATER - 50 ML IVPB ONE (14:54)
[2023-06-11 14:55] LABS: POTASSIUM 4.7 mmol/L (3.5-5.1)
[2023-06-11] MEDS ORDERED: CEFTRIAXONE 1 GM/50 ML BAG ONE (14:56)
[2023-06-11 14:57] LABS: ALBUMIN 3.3 g/dl (3.4-5.0); CALCIUM 8.5 mg/dL (8.5-10.1)
[2023-06-11 15:01] LABS: CREATININE 0.9 mg/dL (0.55-1.3)
[2023-06-11 15:02] LABS: BILIRUBIN,TOTAL 0.4 mg/dL (0.2-1); TOT PROT 6.1 g/dl (6.4-8.2)
[2023-06-11 19:12] VITALS: TEMP 97.5
[2023-06-11] MEDS ORDERED: clonazePAM 0.5 MG TABLET PO ONE (22:53)
[2023-06-11] MEDS ORDERED: clonazePAM 0.5 MG TABLET ONE (22:55)
[2023-06-12 00:04] VITALS: BP 126/61; PULSE 81; RESP 16
== END 2023-06-12 00:05 ==
LOC: JER 12:37
DX: N93.9 Abnormal uterine and vaginal bleeding, unspecified (principal); N30.00 Acute cystitis without hematuria
CPT/HCPCS: 36415; 80053; 81003; 82272; 85025; 86850; 86900; 86901; 87086; 87186; 99284-25

== ENCOUNTER 2023-06-15 08:43 | Inpatient (IN) | payer OTHER ==
[2023-06-15] MEDS ORDERED: SODIUM CHLORIDE 500 ML IV STA (09:05)
[2023-06-15] MEDS ORDERED: ACETAMINOPHEN 1000 MG/100 ML BAG IVPB ONE (09:05)
[2023-06-15] MEDS ORDERED: ACETAMINOPHEN INJECTION 100 ML IVPB ONE (09:06)
[2023-06-15 10:09] LABS: VENOUS BASE EXCESS 1.9 mmol/L (-2-2); VENOUS O2 SATURATION 75.6 % (70-80); VENOUS PH 7.245 (7.310-7.410)
[2023-06-15 10:12] LABS: VENOUS PCO2 73.8 mmHg (38-52)
[2023-06-15] MEDS ORDERED: ALBUTEROL SO4 2.5/IPRATROPIUM 0.5 INH SOL 3 ML VIAL.NEB. NEB ONE ×3 (10:42→17:06)
[2023-06-15 10:48] LABS: BASO % 0.5 % (0-2.0); EOS % 1.8 % (0-4.5); HEMATOCRIT 37.6 % (32.4-45.2); HEMOGLOBIN 12.3 GM/dL (10.7-15.3); LYMPH % 11.8 % (8-40); MCH 29.7 pg (25.7-33.7); MCHC 32.7 g/dl (32.0-36.0); MEAN CELL VOLUME 90.9 fl (80-96); MEAN PLT VOLUME 6.8 fl (7.5-11.1); MONO % 8.7 % (3.8-10.2); NEUT % 77.2 % (42.8-82.8); PLATELET COUNT 208 10^3/uL (134-434); RBC 4.14 M/mm3 (3.60-5.2); RDW 14.2 % (11.6-15.6); WHITE BLOOD COUNT 5.5 K/mm3 (4.0-10.0)
[2023-06-15 10:52] LABS: PROTHROMBIN TIME (PATIENT) 11.6 SEC (9.7-13.0)
[2023-06-15 10:54] LABS: ACTIVATED PTT 30.6 SECONDS (25.2-36.5)
[2023-06-15 11:00] LABS: ARTERIAL BLD GAS O2 SATURATION 96.2 % (95-98); ARTERIAL BLOOD GAS BASE EXCESS 0.4 mmol/L (-2-2); ARTERIAL BLOOD GAS PO2 95.7 mmHg (80-100); ARTERIAL BLOOD GAS pH 7.271 (7.350-7.450)
[2023-06-15 11:02] LABS: POTASSIUM 4.3 mmol/L (3.5-5.1)
[2023-06-15 11:03] LABS: ALLENS TEST POSITIVE
[2023-06-15 11:05] LABS: VENT MODE S/T; VENT RATE 16
[2023-06-15 11:05] LABS: ALBUMIN 3.3 g/dl (3.4-5.0); BLOOD UREA NITROGEN 12.6 mg/dL (7-18)
[2023-06-15 11:09] LABS: BILIRUBIN,TOTAL 0.5 mg/dL (0.2-1); TOT PROT 6.6 g/dl (6.4-8.2)
[2023-06-15] MEDS ORDERED: CEFTRIAXONE 1,000 MG in DEXTROSE 5%-WATER - 50 ML IVPB ONE (11:10)
[2023-06-15] MEDS ORDERED: AZITHROMYCIN IVPB 500 MG in DEXTROSE 5%-WATER - 250 ML IVPB ONE (11:10)
[2023-06-15] MEDS ORDERED: AZITHROMYCIN IVPB 500 MG/250 ML BAG IVPB ONE (11:20)
[2023-06-15] MEDS ORDERED: CEFTRIAXONE 1 GM/50 ML BAG ONE (11:20)
[2023-06-15] MEDS ORDERED: ALBUTEROL SO4 HFA INHALER IH PRN (13:44)
[2023-06-15] MEDS ORDERED: ACETAMINOPHEN 1000 MG/100 ML BAG IVPB PRN (13:45)
[2023-06-15] MEDS ORDERED: POLYETHYLENE GLYCOL (HEALTHYLAX) 3350 17 GM PACKET PO PRN (13:45)
[2023-06-15] MEDS ORDERED: methylPREDNISolone NA SUCC 40 MG/1 ML VIAL ONE (15:03)
[2023-06-15] MEDS: methylPREDNISolone NA SUCC 40 MG/1 ML VIAL IVPUSH SCH ×2 (15:09→21:21)
[2023-06-15] MEDS: ALBUTEROL SO4 2.5/IPRATROPIUM 0.5 INH SOL 3 ML VIAL.NEB. NEB SCH ×2 (17:08→21:27)
[2023-06-15 18:03] VITALS: BMI 23.1
[2023-06-15] MEDS: ATORVASTATIN CA 40 MG TABLET (FP) PO SCH (21:21)
[2023-06-15] MEDS: GABAPENTIN 300 MG CAPSULE PO SCH (21:21)
[2023-06-15] MEDS: MELATONIN 5 MG TABLETS PO SCH (21:21)
[2023-06-15] MEDS: guaiFENesin/D-METHORPHAN TAB.ER.12H PO SCH (21:51)
[2023-06-16] MEDS ORDERED: ACETAMINOPHEN 1000 MG/100 ML BAG IVPB PRN (02:25)
[2023-06-16 05:08] LABS: URINE APPEARANCE CLEAR; URINE BILIRUBIN NEGATIVE (NEGATIVE); URINE COLOR YELLOW; URINE GLUCOSE (UA) NEGATIVE (NEGATIVE); URINE KETONE TRACE (NEGATIVE); URINE LEUK ESTERASE NEGATIVE (NEGATIVE); URINE NITRITE NEGATIVE (NEGATIVE); URINE PROTEIN TRACE (NEGATIVE); URINE UROBILINOGEN 0.2 mg/dL (0.2-1.0)
[2023-06-16 05:09] LABS: EPI CELLS 18 /uL (0-25.1); HYALINE CASTS 3 /uL (0-3.1); URINE BACTERIA 20 /uL (0-1359); URINE RBC 21 /uL (0-23.9); URINE WBC 41 /uL (0-25.8)
[2023-06-16] MEDS: LEVOTHYROXINE NA 25 MCG TABLET (FP) PO SCH (06:40)
[2023-06-16] MEDS: methylPREDNISolone NA SUCC 40 MG/1 ML VIAL IVPUSH SCH ×3 (06:40→21:16)
[2023-06-16] MEDS: ALBUTEROL SO4 2.5/IPRATROPIUM 0.5 INH SOL 3 ML VIAL.NEB. NEB SCH ×4 (07:50→20:14)
[2023-06-16] MEDS: GABAPENTIN 300 MG CAPSULE PO SCH ×2 (09:55→21:15)
[2023-06-16] MEDS: LORATADINE 10 MG TABLET PO SCH (09:55)
[2023-06-16] MEDS: ENOXAPARIN NA (PORCINE) 40 MG/0.4 ML DISP.SYRIN SQ SCH (09:55)
[2023-06-16] MEDS: FERROUS SO4 325 MG TABLET (FP) PO SCH (09:55)
[2023-06-16] MEDS: CITALOPRAM HYDROBROMIDE 20 MG TABLET PO SCH (09:56)
[2023-06-16] MEDS: FAMOTIDINE 20 MG TABLET PO SCH (09:56)
[2023-06-16] MEDS: metoPROLOL SUCCINATE 25 MG TAB.SR.24H (FP) PO SCH (09:56)
[2023-06-16] MEDS: ANASTROZOLE 1 MG TABLET PO SCH (09:56)
[2023-06-16] MEDS: guaiFENesin/D-METHORPHAN TAB.ER.12H PO SCH ×2 (09:57→22:10)
[2023-06-16] MEDS ORDERED: CEFTRIAXONE 1,000 MG in DEXTROSE 5%-WATER - 50 ML IVPB SCH (10:00)
[2023-06-16] MEDS ORDERED: FAMOTIDINE 40 MG TABLET PO SCH (10:00)
[2023-06-16 10:04] LABS: BASO % 0.1 % (0-2.0); HEMATOCRIT 35.5 % (32.4-45.2); HEMOGLOBIN 11.8 GM/dL (10.7-15.3); LYMPH % 9.6 % (8-40); MCHC 33.2 g/dl (32.0-36.0); MEAN CELL VOLUME 90.2 fl (80-96); MEAN PLT VOLUME 6.9 fl (7.5-11.1); MONO % 3.6 % (3.8-10.2); NEUT % 86.7 % (42.8-82.8); PLATELET COUNT 188 10^3/uL (134-434); RBC 3.94 M/mm3 (3.60-5.2); RDW 13.8 % (11.6-15.6); WHITE BLOOD COUNT 3.7 K/mm3 (4.0-10.0)
[2023-06-16 10:27] LABS: POTASSIUM 4.7 mmol/L (3.5-5.1)
[2023-06-16 10:31] LABS: BLOOD UREA NITROGEN 26.1 mg/dL (7-18); CALCIUM 8.2 mg/dL (8.5-10.1); MAGNESIUM 2.2 mg/dL (1.8-2.4)
[2023-06-16 10:34] LABS: PHOSPHOROUS 3.2 mg/dL (2.5-4.9)
[2023-06-16] MEDS ORDERED: CEFTRIAXONE 1 GM in DEXTROSE 5%-WATER - 50 ML IVPB SCH (10:34)
[2023-06-16 10:36] LABS: BILIRUBIN,TOTAL 0.4 mg/dL (0.2-1); CREATININE 0.9 mg/dL (0.55-1.3)
[2023-06-16] MEDS: CEFTRIAXONE 1 GM in DEXTROSE 5%-WATER - 50 ML IVPB SCH (10:46)
[2023-06-16] MEDS ORDERED: BUDESONIDE/FORMETEROL FUMARATE 160/4.5 mcg INHALER IH SCH (12:30)
[2023-06-16] MEDS: BUDESONIDE/FORMETEROL FUMARATE 160/4.5 mcg INHALER IH SCH ×2 (13:32→21:24)
[2023-06-16] MEDS: ATORVASTATIN CA 40 MG TABLET (FP) PO SCH (21:15)
[2023-06-16] MEDS: MELATONIN 5 MG TABLETS PO SCH (21:15)
[2023-06-16] MEDS: clonazePAM 0.5 MG TABLET PO PRN (21:16)
[2023-06-17] MEDS: LEVOTHYROXINE NA 25 MCG TABLET (FP) PO SCH (06:10)
[2023-06-17] MEDS: methylPREDNISolone NA SUCC 40 MG/1 ML VIAL IVPUSH SCH ×3 (06:10→21:38)
[2023-06-17] MEDS: ALBUTEROL SO4 2.5/IPRATROPIUM 0.5 INH SOL 3 ML VIAL.NEB. NEB SCH ×4 (07:50→19:39)
[2023-06-17] MEDS: FAMOTIDINE 20 MG TABLET PO SCH (09:52)
[2023-06-17] MEDS: ENOXAPARIN NA (PORCINE) 40 MG/0.4 ML DISP.SYRIN SQ SCH (09:52)
[2023-06-17] MEDS: GABAPENTIN 300 MG CAPSULE PO SCH ×2 (09:52→21:36)
[2023-06-17] MEDS: LORATADINE 10 MG TABLET PO SCH (09:52)
[2023-06-17] MEDS: ANASTROZOLE 1 MG TABLET PO SCH (09:52)
[2023-06-17] MEDS: FERROUS SO4 325 MG TABLET (FP) PO SCH (09:53)
[2023-06-17] MEDS: CITALOPRAM HYDROBROMIDE 20 MG TABLET PO SCH (09:53)
[2023-06-17] MEDS: metoPROLOL SUCCINATE 25 MG TAB.SR.24H (FP) PO SCH (09:53)
[2023-06-17] MEDS: CEFTRIAXONE 1 GM in DEXTROSE 5%-WATER - 50 ML IVPB SCH (09:53)
[2023-06-17] MEDS: BUDESONIDE/FORMETEROL FUMARATE 160/4.5 mcg INHALER IH SCH ×2 (09:54→21:41)
[2023-06-17] MEDS: guaiFENesin/D-METHORPHAN TAB.ER.12H PO SCH ×2 (09:56→21:37)
[2023-06-17 11:54] LABS: BASO % 0.1 % (0-2.0); HEMATOCRIT 36.6 % (32.4-45.2); LYMPH % 7.3 % (8-40); MCH 29.5 pg (25.7-33.7); MCHC 32.6 g/dl (32.0-36.0); MEAN CELL VOLUME 90.5 fl (80-96); MEAN PLT VOLUME 6.7 fl (7.5-11.1); MONO % 5.9 % (3.8-10.2); NEUT % 86.7 % (42.8-82.8); PLATELET COUNT 237 10^3/uL (134-434); RBC 4.05 M/mm3 (3.60-5.2); RDW 14.1 % (11.6-15.6); WHITE BLOOD COUNT 6.7 K/mm3 (4.0-10.0)
[2023-06-17 12:10] LABS: POTASSIUM 4.5 mmol/L (3.5-5.1)
[2023-06-17 12:13] LABS: CALCIUM 8.9 mg/dL (8.5-10.1)
[2023-06-17 12:14] LABS: ALBUMIN 3.1 g/dl (3.4-5.0); BLOOD UREA NITROGEN 28.7 mg/dL (7-18); MAGNESIUM 2.6 mg/dL (1.8-2.4)
[2023-06-17 12:17] LABS: CREATININE 1.1 mg/dL (0.55-1.3); PHOSPHOROUS 4.3 mg/dL (2.5-4.9)
[2023-06-17 12:18] LABS: BILIRUBIN,TOTAL 0.3 mg/dL (0.2-1)
[2023-06-17 12:19] LABS: TOT PROT 6.3 g/dl (6.4-8.2)
[2023-06-17] MEDS: INSULIN ASPART SLIDING SCALE (NOVOLOG) 1 VIAL SQ SCH (16:44)
[2023-06-17] MEDS ORDERED: INSULIN ASPART SLIDING SCALE (NOVOLOG) 1 VIAL SQ ONE ×2 (17:15→17:17)
[2023-06-17] MEDS: clonazePAM 0.5 MG TABLET PO PRN (21:35)
[2023-06-17] MEDS: ATORVASTATIN CA 40 MG TABLET (FP) PO SCH (21:36)
[2023-06-17] MEDS: MELATONIN 5 MG TABLETS PO SCH (21:37)
[2023-06-18] MEDS: methylPREDNISolone NA SUCC 40 MG/1 ML VIAL IVPUSH SCH ×3 (05:43→22:30)
[2023-06-18] MEDS: INSULIN ASPART SLIDING SCALE (NOVOLOG) 1 VIAL SQ SCH ×3 (06:07→16:35)
[2023-06-18] MEDS: LEVOTHYROXINE NA 25 MCG TABLET (FP) PO SCH (06:07)
[2023-06-18] MEDS: ALBUTEROL SO4 2.5/IPRATROPIUM 0.5 INH SOL 3 ML VIAL.NEB. NEB SCH ×4 (07:21→20:58)
[2023-06-18] MEDS: GABAPENTIN 300 MG CAPSULE PO SCH ×2 (11:05→22:30)
[2023-06-18] MEDS: CITALOPRAM HYDROBROMIDE 20 MG TABLET PO SCH (11:05)
[2023-06-18] MEDS: LORATADINE 10 MG TABLET PO SCH (11:05)
[2023-06-18] MEDS: FERROUS SO4 325 MG TABLET (FP) PO SCH (11:05)
[2023-06-18] MEDS: PANTOPRAZOLE 20 MG TABLET PO SCH (11:05)
[2023-06-18] MEDS: FAMOTIDINE 20 MG TABLET PO SCH (11:05)
[2023-06-18] MEDS: CEFTRIAXONE 1 GM in DEXTROSE 5%-WATER - 50 ML IVPB SCH (11:06)
[2023-06-18] MEDS: ENOXAPARIN NA (PORCINE) 40 MG/0.4 ML DISP.SYRIN SQ SCH (11:06)
[2023-06-18] MEDS: ANASTROZOLE 1 MG TABLET PO SCH (11:06)
[2023-06-18] MEDS: BUDESONIDE/FORMETEROL FUMARATE 160/4.5 mcg INHALER IH SCH ×2 (11:06→22:43)
[2023-06-18] MEDS: metoPROLOL SUCCINATE 25 MG TAB.SR.24H (FP) PO SCH (11:06)
[2023-06-18] MEDS: guaiFENesin/D-METHORPHAN TAB.ER.12H PO SCH ×2 (11:10→23:15)
[2023-06-18] MEDS: ATORVASTATIN CA 40 MG TABLET (FP) PO SCH (22:30)
[2023-06-18] MEDS: MELATONIN 5 MG TABLETS PO SCH (22:30)
[2023-06-18] MEDS: clonazePAM 0.25 MG ODT TABLETS SL PRN (23:55)
[2023-06-19] MEDS: LEVOTHYROXINE NA 25 MCG TABLET (FP) PO SCH (06:07)
[2023-06-19] MEDS: methylPREDNISolone NA SUCC 40 MG/1 ML VIAL IVPUSH SCH ×3 (06:07→21:09)
[2023-06-19] MEDS: INSULIN ASPART SLIDING SCALE (NOVOLOG) 1 VIAL SQ SCH ×3 (06:17→17:20)
[2023-06-19] MEDS: ALBUTEROL SO4 2.5/IPRATROPIUM 0.5 INH SOL 3 ML VIAL.NEB. NEB SCH ×4 (07:25→20:02)
[2023-06-19] MEDS: BUDESONIDE/FORMETEROL FUMARATE 160/4.5 mcg INHALER IH SCH ×2 (11:00→21:08)
[2023-06-19] MEDS: FAMOTIDINE 20 MG TABLET PO SCH (11:07)
[2023-06-19] MEDS: CITALOPRAM HYDROBROMIDE 20 MG TABLET PO SCH (11:07)
[2023-06-19] MEDS: metoPROLOL SUCCINATE 25 MG TAB.SR.24H (FP) PO SCH (11:07)
[2023-06-19] MEDS: GABAPENTIN 300 MG CAPSULE PO SCH ×2 (11:08→21:09)
[2023-06-19] MEDS: LORATADINE 10 MG TABLET PO SCH (11:08)
[2023-06-19] MEDS: PANTOPRAZOLE 20 MG TABLET PO SCH (11:08)
[2023-06-19] MEDS: FERROUS SO4 325 MG TABLET (FP) PO SCH (11:08)
[2023-06-19] MEDS: ANASTROZOLE 1 MG TABLET PO SCH (11:09)
[2023-06-19] MEDS: ENOXAPARIN NA (PORCINE) 40 MG/0.4 ML DISP.SYRIN SQ SCH (11:09)
[2023-06-19] MEDS: guaiFENesin/D-METHORPHAN TAB.ER.12H PO SCH (11:10)
[2023-06-19] MEDS: clonazePAM 0.25 MG ODT TABLETS SL PRN ×2 (11:13→22:45)
[2023-06-19] MEDS ORDERED: guaiFENesin/D-METHORPHAN TAB.ER.12H PO PRN (11:35)
[2023-06-19] MEDS ORDERED: INSULIN ASPART SLIDING SCALE (NOVOLOG) 1 VIAL SQ ONE ×2 (12:51→17:17)
[2023-06-19] MEDS: CEFTRIAXONE 1 GM in DEXTROSE 5%-WATER - 50 ML IVPB SCH (13:34)
[2023-06-19] MEDS: ATORVASTATIN CA 40 MG TABLET (FP) PO SCH (21:09)
[2023-06-19] MEDS: MELATONIN 5 MG TABLETS PO SCH (21:09)
[2023-06-20] MEDS: methylPREDNISolone NA SUCC 40 MG/1 ML VIAL IVPUSH SCH (06:20)
[2023-06-20] MEDS: LEVOTHYROXINE NA 25 MCG TABLET (FP) PO SCH (06:21)
[2023-06-20] MEDS: INSULIN ASPART SLIDING SCALE (NOVOLOG) 1 VIAL SQ SCH ×3 (06:27→16:51)
[2023-06-20] MEDS: ALBUTEROL SO4 2.5/IPRATROPIUM 0.5 INH SOL 3 ML VIAL.NEB. NEB SCH ×2 (07:40→11:54)
[2023-06-20] MEDS: FERROUS SO4 325 MG TABLET (FP) PO SCH (09:59)
[2023-06-20] MEDS: ENOXAPARIN NA (PORCINE) 40 MG/0.4 ML DISP.SYRIN SQ SCH (09:59)
[2023-06-20] MEDS: PANTOPRAZOLE 20 MG TABLET PO SCH (09:59)
[2023-06-20] MEDS: FAMOTIDINE 20 MG TABLET PO SCH (09:59)
[2023-06-20] MEDS: GABAPENTIN 300 MG CAPSULE PO SCH ×2 (09:59→22:34)
[2023-06-20] MEDS: ANASTROZOLE 1 MG TABLET PO SCH (09:59)
[2023-06-20] MEDS: LORATADINE 10 MG TABLET PO SCH (09:59)
[2023-06-20] MEDS: CITALOPRAM HYDROBROMIDE 20 MG TABLET PO SCH (09:59)
[2023-06-20] MEDS: metoPROLOL SUCCINATE 25 MG TAB.SR.24H (FP) PO SCH (09:59)
[2023-06-20] MEDS: clonazePAM 0.25 MG ODT TABLETS SL PRN ×2 (09:59→22:34)
[2023-06-20] MEDS: BUDESONIDE/FORMETEROL FUMARATE 160/4.5 mcg INHALER IH SCH ×2 (10:02→22:34)
[2023-06-20 13:42] LABS: BASO % 0.1 % (0-2.0); HEMOGLOBIN 12.7 GM/dL (10.7-15.3); LYMPH % 8.7 % (8-40); MCH 29.7 pg (25.7-33.7); MCHC 32.7 g/dl (32.0-36.0); MEAN CELL VOLUME 90.9 fl (80-96); MEAN PLT VOLUME 7.1 fl (7.5-11.1); MONO % 8.4 % (3.8-10.2); NEUT % 82.8 % (42.8-82.8); PLATELET COUNT 279 10^3/uL (134-434); RBC 4.29 M/mm3 (3.60-5.2); RDW 14.1 % (11.6-15.6)
[2023-06-20 14:06] LABS: POTASSIUM 4.4 mmol/L (3.5-5.1)
[2023-06-20 14:08] LABS: BLOOD UREA NITROGEN 39.6 mg/dL (7-18); CALCIUM 9.3 mg/dL (8.5-10.1)
[2023-06-20 14:12] LABS: CREATININE 1.2 mg/dL (0.55-1.3)
[2023-06-20 14:13] LABS: BILIRUBIN,TOTAL 0.4 mg/dL (0.2-1)
[2023-06-20 14:26] LABS: ALBUMIN 2.9 g/dl (3.4-5.0)
[2023-06-20] MEDS ORDERED: POLYETHYLENE GLYCOL (HEALTHYLAX) 3350 17 GM PACKET PO ONE (18:30)
[2023-06-20] MEDS ORDERED: methylPREDNISolone NA SUCC 40 MG/1 ML VIAL IVPUSH SCH (22:00)
[2023-06-20] MEDS: MELATONIN 5 MG TABLETS PO SCH (22:34)
[2023-06-20] MEDS: ATORVASTATIN CA 40 MG TABLET (FP) PO SCH (22:34)
[2023-06-21] MEDS: INSULIN ASPART SLIDING SCALE (NOVOLOG) 1 VIAL SQ SCH ×3 (07:04→16:50)
[2023-06-21] MEDS: LEVOTHYROXINE NA 25 MCG TABLET (FP) PO SCH (07:04)
[2023-06-21] MEDS ORDERED: predniSONE 10 MG TABLET (UD) PO SCH (10:00)
[2023-06-21 10:33] LABS: HEMATOCRIT 37.3 % (32.4-45.2); HEMOGLOBIN 12.5 GM/dL (10.7-15.3); MCH 30.3 pg (25.7-33.7); MCHC 33.4 g/dl (32.0-36.0); MEAN CELL VOLUME 90.8 fl (80-96); PLATELET COUNT 269 10^3/uL (134-434); RBC 4.11 M/mm3 (3.60-5.2); RDW 13.9 % (11.6-15.6); WHITE BLOOD COUNT 9.1 K/mm3 (4.0-10.0)
[2023-06-21] MEDS: PANTOPRAZOLE 20 MG TABLET PO SCH (10:36)
[2023-06-21] MEDS: LORATADINE 10 MG TABLET PO SCH (10:36)
[2023-06-21] MEDS: FERROUS SO4 325 MG TABLET (FP) PO SCH (10:36)
[2023-06-21] MEDS: ENOXAPARIN NA (PORCINE) 40 MG/0.4 ML DISP.SYRIN SQ SCH (10:36)
[2023-06-21] MEDS: clonazePAM 0.25 MG ODT TABLETS SL PRN ×2 (10:37→22:15)
[2023-06-21] MEDS: ANASTROZOLE 1 MG TABLET PO SCH (10:37)
[2023-06-21] MEDS: CITALOPRAM HYDROBROMIDE 20 MG TABLET PO SCH (10:37)
[2023-06-21] MEDS: metoPROLOL SUCCINATE 25 MG TAB.SR.24H (FP) PO SCH (10:37)
[2023-06-21] MEDS: GABAPENTIN 300 MG CAPSULE PO SCH ×2 (10:37→22:15)
[2023-06-21] MEDS: FAMOTIDINE 20 MG TABLET PO SCH (10:37)
[2023-06-21 10:41] LABS: POTASSIUM 5.1 mmol/L (3.5-5.1)
[2023-06-21] MEDS: BUDESONIDE/FORMETEROL FUMARATE 160/4.5 mcg INHALER IH SCH ×2 (10:43→22:16)
[2023-06-21 10:47] LABS: ALBUMIN 2.8 g/dl (3.4-5.0); BLOOD UREA NITROGEN 43.6 mg/dL (7-18)
[2023-06-21 10:49] LABS: CREATININE 1.1 mg/dL (0.55-1.3)
[2023-06-21 10:50] LABS: BILIRUBIN,TOTAL 0.5 mg/dL (0.2-1); TOT PROT 5.6 g/dl (6.4-8.2)
[2023-06-21 11:12] LABS: ANISOCYTOSIS 0; MACROCYTOSIS 0
[2023-06-21 14:07] VITALS: RESP 18
[2023-06-21] MEDS: ATORVASTATIN CA 40 MG TABLET (FP) PO SCH (22:15)
[2023-06-21] MEDS: MELATONIN 5 MG TABLETS PO SCH (22:15)
[2023-06-22 04:17] VITALS: PULSE 74
[2023-06-22] MEDS: INSULIN ASPART SLIDING SCALE (NOVOLOG) 1 VIAL SQ SCH (06:25)
[2023-06-22] MEDS: LEVOTHYROXINE NA 25 MCG TABLET (FP) PO SCH (06:26)
[2023-06-22 07:01] VITALS: BP 108/67; TEMP 97.4
[2023-06-22] MEDS: ANASTROZOLE 1 MG TABLET PO SCH (11:02)
[2023-06-22] MEDS: CITALOPRAM HYDROBROMIDE 20 MG TABLET PO SCH (11:02)
== END 2023-06-22 10:38 | disposition home or self-care (01) | DRG 189 ==
LOC: JER 08:43 → JERBED 13:10 → J5S 17:30 → J6S 20:12
PROVIDERS: ADMIT Internal Medicine; ATTEND Internal Medicine
DX: J96.22 Acute and chronic respiratory failure with hypercapnia (principal); J44.1 Chronic obstructive pulmonary disease with (acute) exacerbation; J44.0 Chronic obstructive pulmonary disease with (acute) lower respiratory infection; J96.21 Acute and chronic respiratory failure with hypoxia; J96.11 Chronic respiratory failure with hypoxia; B33.8 Other specified viral diseases; R82.71 Bacteriuria; E78.5 Hyperlipidemia, unspecified; I10 Essential (primary) hypertension; I25.10 Atherosclerotic heart disease of native coronary artery without angina pectoris; E03.9 Hypothyroidism, unspecified; F41.8 Other specified anxiety disorders
CPT/HCPCS: 0241U-QW; 36415; 36600; 71045-TC-FY; 80048; 80053; 81003; 82803; 82962; 83036; 83605; 83735; 84100; 84484; 85025; 85610; 85730; 87040; 87086; 87186; 87635; 87807; 87899; 93005; 93010; 94640; 94660; 97116-GP; 97162-GP; 99285-25

== ENCOUNTER 2023-09-01 09:32 | Emergency (ER) | payer OTHER ==
[2023-09-01 10:38] VITALS: BMI 28.7
[2023-09-01] MEDS ORDERED: HYDROmorphone HCl 2 MG/ML VIAL ONE (10:40)
[2023-09-01] MEDS: HYDROmorphone HCl 2 MG/ML VIAL IVPUSH ONE (10:52)
[2023-09-01] MEDS: SODIUM CHLORIDE 0.9% 500 ML INFUS.BAG IV ONE (11:15)
[2023-09-01 11:18] LABS: BASO % 0.5 % (0-2.0); EOS % 3.9 % (0-4.5); HEMATOCRIT 36.5 % (32.4-45.2); HEMOGLOBIN 12.2 GM/dL (10.7-15.3); LYMPH % 12.8 % (8-40); MCH 30.5 pg (25.7-33.7); MCHC 33.6 g/dl (32.0-36.0); MEAN CELL VOLUME 90.9 fl (80-96); MEAN PLT VOLUME 6.9 fl (7.5-11.1); MONO % 7.3 % (3.8-10.2); NEUT % 75.5 % (42.8-82.8); PLATELET COUNT 200 10^3/uL (134-434); RBC 4.01 M/mm3 (3.60-5.2); RDW 14.2 % (11.6-15.6); WHITE BLOOD COUNT 7.5 K/mm3 (4.0-10.0)
[2023-09-01 11:27] LABS: INR 0.98 (0.83-1.09); PROTHROMBIN TIME (PATIENT) 11.4 SEC (9.7-13.0)
[2023-09-01 11:30] LABS: ACTIVATED PTT 31.2 SECONDS (25.2-36.5)
[2023-09-01 11:36] LABS: POTASSIUM 4.4 mmol/L (3.5-5.1)
[2023-09-01 11:37] LABS: CALCIUM 8.7 mg/dL (8.5-10.1)
[2023-09-01 11:38] LABS: BLOOD UREA NITROGEN 18.8 mg/dL (7-18)
[2023-09-01 11:41] LABS: CREATININE 0.9 mg/dL (0.55-1.3)
[2023-09-01 17:58] VITALS: TEMP 97.9
[2023-09-01 18:02] VITALS: BP 128/74; PULSE 86; RESP 18
== END 2023-09-01 13:45 | disposition short-term general hospital (02) ==
LOC: JER 09:32
PROC: 3E033NZ Introduction of Analgesics, Hypnotics, Sedatives into Peripheral Vein, Percutaneous Approach (ICD-10-PCS; principal; 2023-09-01)
DX: M25.552 Pain in left hip (principal); S73.005A Unspecified dislocation of left hip, initial encounter; X50.1XXA Overexertion from prolonged static or awkward postures, initial encounter
CPT/HCPCS: 36415; 72170-TC-FY; 73502-TC-LT-FY; 80048; 85025; 85610; 85730; 86850; 86900; 86901; 93005; 93010; 99285-25

== ENCOUNTER 2023-09-05 12:37 | Inpatient (IN) | payer OTHER ==
[2023-09-05 13:10] VITALS: BMI 26.6
[2023-09-05 14:31] LABS: BASO % 0.5 % (0-2.0); EOS % 6.9 % (0-4.5); HEMOGLOBIN 12.1 GM/dL (10.7-15.3); LYMPH % 15.2 % (8-40); MCH 30.3 pg (25.7-33.7); MCHC 33.5 g/dl (32.0-36.0); MEAN CELL VOLUME 90.3 fl (80-96); MEAN PLT VOLUME 6.9 fl (7.5-11.1); MONO % 9.9 % (3.8-10.2); NEUT % 67.5 % (42.8-82.8); PLATELET COUNT 205 10^3/uL (134-434); RBC 3.99 M/mm3 (3.60-5.2); RDW 14.3 % (11.6-15.6); WHITE BLOOD COUNT 5.7 K/mm3 (4.0-10.0)
[2023-09-05 14:48] LABS: POTASSIUM 4.8 mmol/L (3.5-5.1)
[2023-09-05 14:52] LABS: BLOOD UREA NITROGEN 15.6 mg/dL (7-18)
[2023-09-05 14:55] LABS: CREATININE 0.8 mg/dL (0.55-1.3)
[2023-09-05 14:57] LABS: BILIRUBIN,TOTAL 0.7 mg/dL (0.2-1); TOT PROT 5.8 g/dl (6.4-8.2)
[2023-09-05] MEDS ORDERED: POLYETHYLENE GLYCOL (HEALTHYLAX) 3350 17 GM PACKET PO PRN (15:02)
[2023-09-05] MEDS ORDERED: ALBUTEROL SO4 2.5/IPRATROPIUM 0.5 INH SOL 3 ML VIAL.NEB. NEB ONE (19:49)
[2023-09-05] MEDS ORDERED: ACETAMINOPHEN 500 MG TABLET (FP) ONE (19:50)
[2023-09-05] MEDS: ACETAMINOPHEN 500 MG TABLET (FP) PO PRN (20:01)
[2023-09-05] MEDS: ALBUTEROL SO4 2.5/IPRATROPIUM 0.5 INH SOL 3 ML VIAL.NEB. NEB PRN (20:02)
[2023-09-05] MEDS ORDERED: GABAPENTIN 300 MG CAPSULE ONE (22:58)
[2023-09-05] MEDS ORDERED: ATORVASTATIN CA 40 MG TABLET (FP) ONE (22:58)
[2023-09-05] MEDS ORDERED: clonazePAM 0.5 MG TABLET ONE ×2 (22:58→22:59)
[2023-09-05] MEDS ORDERED: QUEtiapine FUMARATE 25 MG TABLET ONE (22:58)
[2023-09-05] MEDS: clonazePAM 0.5 MG TABLET PO PRN (23:04)
[2023-09-05] MEDS: GABAPENTIN 300 MG CAPSULE PO SCH (23:05)
[2023-09-05] MEDS: QUEtiapine FUMARATE 25 MG TABLET PO SCH (23:05)
[2023-09-05] MEDS: ATORVASTATIN CA 40 MG TABLET (FP) PO SCH (23:05)
[2023-09-06] MEDS: LEVOTHYROXINE NA 25 MCG TABLET (FP) PO SCH (06:30)
[2023-09-06 07:13] LABS: BASO % 0.8 % (0-2.0); EOS % 8.3 % (0-4.5); HEMATOCRIT 32.9 % (32.4-45.2); LYMPH % 22.7 % (8-40); MCH 30.3 pg (25.7-33.7); MCHC 33.4 g/dl (32.0-36.0); MEAN CELL VOLUME 90.8 fl (80-96); MEAN PLT VOLUME 6.9 fl (7.5-11.1); MONO % 12.8 % (3.8-10.2); NEUT % 55.4 % (42.8-82.8); PLATELET COUNT 196 10^3/uL (134-434); RBC 3.62 M/mm3 (3.60-5.2); WHITE BLOOD COUNT 4.6 K/mm3 (4.0-10.0)
[2023-09-06 07:28] VITALS: RESP 18
[2023-09-06 07:32] LABS: POTASSIUM 3.8 mmol/L (3.5-5.1)
[2023-09-06 07:35] LABS: CALCIUM 8.8 mg/dL (8.5-10.1)
[2023-09-06 07:37] LABS: ALBUMIN 2.8 g/dl (3.4-5.0); BLOOD UREA NITROGEN 20.3 mg/dL (7-18)
[2023-09-06 07:40] LABS: CREATININE 0.8 mg/dL (0.55-1.3); PHOSPHOROUS 4.2 mg/dL (2.5-4.9)
[2023-09-06 07:41] LABS: BILIRUBIN,TOTAL 0.4 mg/dL (0.2-1); TOT PROT 5.2 g/dl (6.4-8.2)
[2023-09-06] MEDS: CITALOPRAM HYDROBROMIDE 20 MG TABLET PO SCH (09:52)
[2023-09-06] MEDS: metoPROLOL SUCCINATE 25 MG TAB.SR.24H (FP) PO SCH (09:52)
[2023-09-06] MEDS: PANTOPRAZOLE 20 MG TABLET PO SCH (09:52)
[2023-09-06] MEDS: FERROUS SO4 325 MG TABLET (FP) PO SCH (09:52)
[2023-09-06] MEDS: ENOXAPARIN NA (PORCINE) 40 MG/0.4 ML DISP.SYRIN SQ SCH (09:53)
[2023-09-06] MEDS ORDERED: SENNOSIDES/DOCUSATE COMBO (SENNA PLUS) TABLET (UD) PO PRN (11:24)
[2023-09-06] MEDS: ANASTROZOLE 1 MG TABLET PO SCH (13:05)
[2023-09-06] MEDS: FLUTICASONE/UMECLIDIN/VILANTER(200-62.5-25 TRELEGY ELLIPTA) INAHLER IH SCH (18:15)
[2023-09-07] MEDS: MAGNESIUM HYDROX 2400MG/30ML ORAL SUSPENSION 30 ML CUP PO ONE (13:05)
[2023-09-07] MEDS: SENNOSIDES/DOCUSATE COMBO (SENNA PLUS) TABLET (UD) PO SCH (13:05)
[2023-09-07] MEDS: ALBUTEROL SO4 HFA INHALER IH PRN (13:08)
[2023-09-07] MEDS: POLYETHYLENE GLYCOL (HEALTHYLAX) 3350 17 GM PACKET PO SCH (21:38)
[2023-09-08 07:33] VITALS: PULSE 74
[2023-09-08 10:19] VITALS: BP 94/55; TEMP 97.7
== END 2023-09-08 10:57 | DRG 556 ==
LOC: JER 12:37 → JERBED 14:46 → OBSVTOIN 15:06 → JERBED 18:44 → J7W 09-06 00:26
PROVIDERS: ADMIT Internal Medicine; ATTEND Nurse Practitioner
DX: R26.2 Difficulty in walking, not elsewhere classified (principal); J44.9 Chronic obstructive pulmonary disease, unspecified; E03.9 Hypothyroidism, unspecified; I10 Essential (primary) hypertension; E78.5 Hyperlipidemia, unspecified; F41.8 Other specified anxiety disorders; K21.9 Gastro-esophageal reflux disease without esophagitis
CPT/HCPCS: 36415; 80053; 83735; 84100; 85025; 93005; 93010; 94640; 94660; 97116-GP; 97161-GP; 99285-25; G0378

== ENCOUNTER 2023-11-17 16:18 | Emergency (ER) | payer OTHER ==
[2023-11-17 16:46] VITALS: BMI 24.7
[2023-11-17] MEDS ORDERED: predniSONE 20 MG TABLET (UD) ONE (17:20)
[2023-11-17] MEDS ORDERED: ALBUTEROL SO4 2.5/IPRATROPIUM 0.5 INH SOL 3 ML VIAL.NEB. NEB ONE (17:20)
[2023-11-17 17:26] LABS: BASO % 0.6 % (0-2.0); EOS % 6.5 % (0-4.5); HEMATOCRIT 31.7 % (32.4-45.2); HEMOGLOBIN 10.5 GM/dL (10.7-15.3); LYMPH % 16.9 % (8-40); MCHC 33.1 g/dl (32.0-36.0); MEAN CELL VOLUME 90.7 fl (80-96); MEAN PLT VOLUME 6.5 fl (7.5-11.1); MONO % 8.2 % (3.8-10.2); NEUT % 67.8 % (42.8-82.8); PLATELET COUNT 208 10^3/uL (134-434); RDW 13.8 % (11.6-15.6); VENOUS BASE EXCESS 5.1 mmol/L (-2-2); VENOUS O2 SATURATION 33.6 % (70-80); VENOUS PH 7.271 (7.310-7.410); WHITE BLOOD COUNT 6.2 K/mm3 (4.0-10.0)
[2023-11-17] MEDS: ALBUTEROL SO4 2.5/IPRATROPIUM 0.5 INH SOL 3 ML VIAL.NEB. NEB SCH (17:27)
[2023-11-17] MEDS: predniSONE 20 MG TABLET (UD) PO ONE (17:27)
[2023-11-17 17:45] LABS: POTASSIUM 4.1 mmol/L (3.5-5.1)
[2023-11-17 17:49] LABS: CALCIUM 8.8 mg/dL (8.5-10.1)
[2023-11-17 17:50] LABS: ALBUMIN 3.6 g/dl (3.4-5.0); BLOOD UREA NITROGEN 20.8 mg/dL (7-18)
[2023-11-17 17:54] LABS: BILIRUBIN,TOTAL 0.6 mg/dL (0.2-1)
[2023-11-17 17:55] LABS: TOT PROT 6.4 g/dl (6.4-8.2)
[2023-11-17 18:25] VITALS: TEMP 98
[2023-11-17 18:49] LABS: VENOUS BASE EXCESS 5.9 mmol/L (-2-2); VENOUS O2 SATURATION 56.7 % (70-80); VENOUS PH 7.28 (7.310-7.410)
[2023-11-17 18:52] LABS: VENOUS PCO2 75.5 mmHg (38-52)
[2023-11-17] MEDS ORDERED: ALBUTEROL SO4 0.083% IH SOL 2.5 MG/3 ML VIAL.NEB. NEB ONE (19:51)
[2023-11-17] MEDS ORDERED: AZITHROMYCIN 500 MG TABLET ONE (19:51)
[2023-11-17] MEDS: AZITHROMYCIN 250 MG TABLET PO ONE (19:56)
[2023-11-17] MEDS: ALBUTEROL SO4 0.083% IH SOL 2.5 MG/3 ML VIAL.NEB. NEB ONE (20:44)
[2023-11-17] MEDS: SODIUM CHLORIDE 0.9% 1000 ML INFUS.BAG IV ONE (21:35)
[2023-11-18 00:47] VITALS: BP 105/76; PULSE 100; RESP 20
== END 2023-11-18 01:11 | disposition home or self-care (01) ==
LOC: JER 16:18
PROC: 3E0F7GC Introduction of Other Therapeutic Substance into Respiratory Tract, Via Natural or Artificial Opening (ICD-10-PCS; principal; 2023-11-17)
PROC: 3E0F7GC Introduction of Other Therapeutic Substance into Respiratory Tract, Via Natural or Artificial Opening (ICD-10-PCS; 2023-11-17)
DX: J44.1 Chronic obstructive pulmonary disease with (acute) exacerbation (principal); G97.82 Other postprocedural complications and disorders of nervous system; R09.02 Hypoxemia; R06.02 Shortness of breath; R53.1 Weakness; Z20.822 Contact with and (suspected) exposure to COVID-19
CPT/HCPCS: 0241U-QW; 36415; 71045-TC-FY; 80053; 82803; 83735; 84484; 85025; 93005; 93010; 99285-25

== ENCOUNTER 2024-02-24 23:33 | Inpatient (IN) | payer OTHER ==
[2024-02-25] MEDS: ACETAMINOPHEN 1000 MG/100 ML BAG IVPB ONE (00:46)
[2024-02-25] MEDS ORDERED: MORPHINE SULFATE 2 MG/ML SYRINGE ONE (00:46)
[2024-02-25] MEDS: morphine CARPU-JECT 2 MG/1 ML DISP.SYRIN IVPUSH ONE (00:48)
[2024-02-25] MEDS ORDERED: PROPOFOL 20 ML ONE ×2 (04:30→08:52)
[2024-02-25 04:38] LABS: BASO % 0.7 % (0-2.0); EOS % 6.3 % (0-4.5); HEMATOCRIT 35.3 % (32.4-45.2); HEMOGLOBIN 11.7 GM/dL (10.7-15.3); LYMPH % 17.1 % (8-40); MCH 29.4 pg (25.7-33.7); MCHC 33.1 g/dl (32.0-36.0); MEAN CELL VOLUME 89.1 fl (80-96); MEAN PLT VOLUME 6.9 fl (7.5-11.1); MONO % 7.7 % (3.8-10.2); NEUT % 68.2 % (42.8-82.8); PLATELET COUNT 223 10^3/uL (134-434); RBC 3.96 M/mm3 (3.60-5.2); RDW 13.6 % (11.6-15.6); WHITE BLOOD COUNT 6.8 K/mm3 (4.0-10.0)
[2024-02-25 04:59] LABS: INR 0.93 (0.83-1.09); PROTHROMBIN TIME (PATIENT) 10.7 SEC (9.7-13.0)
[2024-02-25 05:08] LABS: POTASSIUM 4.5 mmol/L (3.5-5.1)
[2024-02-25] MEDS: SODIUM CHLORIDE 0.9% 500 ML INFUS.BAG IV ONE (05:09)
[2024-02-25 05:10] LABS: CALCIUM 8.9 mg/dL (8.5-10.1)
[2024-02-25 05:11] LABS: ALBUMIN 3.6 g/dl (3.4-5.0); BLOOD UREA NITROGEN 16.8 mg/dL (7-18)
[2024-02-25 05:14] LABS: CREATININE 0.9 mg/dL (0.55-1.3)
[2024-02-25 05:15] LABS: BILIRUBIN,TOTAL 0.4 mg/dL (0.2-1)
[2024-02-25] MEDS ORDERED: FENTANYL CITRATE/PF 50 MCG/ML VIAL ONE (05:32)
[2024-02-25] MEDS: PROPOFOL 200 MG/20 ML VIAL IVPUSH ONE ×4 (05:40→09:30)
[2024-02-25] MEDS ORDERED: ONDANSETRON 4 MG/2 ML VIAL ONE ×2 (08:05→09:19)
[2024-02-25] MEDS: ONDANSETRON 4 MG/2 ML VIAL IVPB ONE (08:29)
[2024-02-25] MEDS ORDERED: KETAMINE HCL 200 MG/20 ML VIAL ONE (08:52)
[2024-02-25] MEDS: KETAMINE HCL 200 MG/20 ML VIAL IVPUSH ONE (09:29)
[2024-02-25] MEDS: SODIUM CHLORIDE 1,000 ML IV STA (13:42)
[2024-02-25] MEDS: ALBUTEROL SO4 2.5/IPRATROPIUM 0.5 INH SOL 3 ML VIAL.NEB. NEB PRN (16:00)
[2024-02-25] MEDS ORDERED: ALBUTEROL SO4 2.5/IPRATROPIUM 0.5 INH SOL 3 ML VIAL.NEB. NEB ONE (16:11)
[2024-02-25] MEDS ORDERED: ATORVASTATIN CA 40 MG TABLET (FP) ONE (21:15)
[2024-02-25] MEDS ORDERED: GABAPENTIN 300 MG CAPSULE ONE (21:15)
[2024-02-25] MEDS ORDERED: QUEtiapine FUMARATE 25 MG TABLET ONE (21:16)
[2024-02-25] MEDS ORDERED: DOCUSATE SODIUM 100 MG CAPSULE (FP) PO ONE (21:16)
[2024-02-25] MEDS ORDERED: ACETAMINOPHEN 325 MG TABLET (FP) ONE (21:16)
[2024-02-25] MEDS ORDERED: HEPARIN NA (PORCINE) 5,000 UNITS/ML 1ML VIAL ONE (21:17)
[2024-02-25] MEDS: ACETAMINOPHEN 325 MG TABLET (FP) PO PRN (21:29)
[2024-02-25] MEDS: ATORVASTATIN CA 40 MG TABLET (FP) PO SCH (21:30)
[2024-02-25] MEDS: GABAPENTIN 300 MG CAPSULE PO SCH (21:30)
[2024-02-25] MEDS: SENNOSIDES/DOCUSATE COMBO (SENNA PLUS) TABLET (UD) PO SCH (21:30)
[2024-02-25] MEDS: HEPARIN NA (PORCINE) 5,000 UNITS/ML 1ML VIAL SQ SCH (21:30)
[2024-02-25] MEDS: QUEtiapine FUMARATE 25 MG TABLET PO SCH (21:30)
[2024-02-26] MEDS: LEVOTHYROXINE NA 25 MCG TABLET (FP) PO SCH (08:32)
[2024-02-26 08:52] VITALS: BMI 23.5
[2024-02-26] MEDS: FERROUS SO4 325 MG TABLET (FP) PO SCH (09:33)
[2024-02-26] MEDS: CITALOPRAM HYDROBROMIDE 20 MG TABLET PO SCH (09:33)
[2024-02-26] MEDS: metoPROLOL SUCCINATE 25 MG TAB.SR.24H (FP) PO SCH (09:33)
[2024-02-26] MEDS: CHOLECALCIFEROL (VIT D3) 1,000 UNIT (25 MCG) TABLET PO SCH (09:33)
[2024-02-26] MEDS: FLUTICASONE/UMECLIDIN/VILANTER(200-62.5-25 TRELEGY ELLIPTA) INAHLER IH SCH (09:34)
[2024-02-26] MEDS: ANASTROZOLE 1 MG TABLET PO SCH (11:04)
[2024-02-26] MEDS: FAMOTIDINE 40 MG TABLET PO SCH (11:05)
[2024-02-26] MEDS ORDERED: ALBUTEROL SO4 2.5/IPRATROPIUM 0.5 INH SOL 3 ML VIAL.NEB. NEB SCH (17:00)
[2024-02-26] MEDS: ALBUTEROL SO4 2.5/IPRATROPIUM 0.5 INH SOL 3 ML VIAL.NEB. NEB SCH (19:25)
[2024-02-27] MEDS: FAMOTIDINE 20 MG TABLET PO SCH (09:58)
[2024-02-27] MEDS: clonazePAM 0.5 MG TABLET PO PRN (23:13)
[2024-02-28] MEDS: ALBUTEROL SO4 HFA INHALER IH PRN (09:16)
[2024-02-28] MEDS: POLYETHYLENE GLYCOL (HEALTHYLAX) 3350 17 GM PACKET PO PRN (14:00)
[2024-02-28] MEDS: GLYCERIN 1 RECTAL SUPPOSITORY, ADULT PR ONE (14:23)
[2024-02-29] MEDS: clonazePAM 0.5 MG TABLET PO ONE (22:23)
[2024-03-01 11:04] VITALS: RESP 20
[2024-03-01 15:47] VITALS: BP 100/81; PULSE 109; TEMP 99.1
== END 2024-03-01 17:55 | DRG 561 ==
LOC: JER 23:33 → UNDOADMOB 02-25 10:14 → INTOOBSV 02-25 10:14 → JERBED 02-25 10:14 → J6S 02-26 07:41 → OBSVTOIN 02-26 14:03
PROVIDERS: ADMIT Internal Medicine; ATTEND Internal Medicine
PROC: 0SSBXZZ Reposition Left Hip Joint, External Approach (ICD-10-PCS; principal; 2024-02-26)
DX: T84.021A Dislocation of internal left hip prosthesis, initial encounter (principal); X58.XXXA Exposure to other specified factors, initial encounter; Y93.9 Activity, unspecified; Y92.89 Other specified places as the place of occurrence of the external cause; Y99.9 Unspecified external cause status; M25.552 Pain in left hip; J44.9 Chronic obstructive pulmonary disease, unspecified; E03.9 Hypothyroidism, unspecified; I10 Essential (primary) hypertension; E78.5 Hyperlipidemia, unspecified; K21.9 Gastro-esophageal reflux disease without esophagitis
CPT/HCPCS: 36415; 72170-TC-FY; 80053; 85025; 85610; 86850; 86900; 86901; 93005; 93010; 94640; 94660; 97116-GP; 97162-GP; 99285-25; G0378; J1644

== ENCOUNTER 2024-06-09 23:35 | Emergency (ER) | payer OTHER ==
[2024-06-09 23:40] VITALS: BP 102/70; TEMP 97.8; BMI 23.1
[2024-06-09 23:41] VITALS: PULSE 62; RESP 18
[2024-06-10] MEDS ORDERED: LIDOCAINE HCL 1%, 10 MG/ML (20ML VIAL) ONE (00:51)
[2024-06-10] MEDS: LIDOCAINE HCL 1%, 10 MG/ML (50 mL VIAL) SQ ONE (00:54)
[2024-06-10] MEDS ORDERED: BACITRACIN ZINC 15 GM TUBE TOPICAL OINTMENT ONE (00:56)
[2024-06-10] MEDS ORDERED: DIPHTH,PERTUSS(ACELL),TET 0.5 ML DISP.SYRIN IM ONE (01:17)
[2024-06-10] MEDS: DIPHTH,PERTUSS(ACELL),TET 0.5 ML DISP.SYRIN IM ONE (01:19)
== END 2024-06-10 03:42 | disposition home or self-care (01) ==
LOC: JER 23:35
PROC: 0HQ0XZZ Repair Scalp Skin, External Approach (ICD-10-PCS; principal; 2024-06-10)
PROC: 3E0234Z Introduction of Serum, Toxoid and Vaccine into Muscle, Percutaneous Approach (ICD-10-PCS; 2024-06-10)
DX: S01.01XA Laceration without foreign body of scalp, initial encounter (principal); W22.8XXA Striking against or struck by other objects, initial encounter; Z23 Encounter for immunization
CPT/HCPCS: 12001-25; 70450-TC; 90471; 90715; 93005; 93010; 99284-25

== ENCOUNTER 2024-08-05 18:58 | Inpatient (IN) | payer OTHER ==
[2024-08-05 20:24] LABS: BASO % 0.4 % (0-2.0); HEMATOCRIT 33.3 % (32.4-45.2); HEMOGLOBIN 10.9 GM/dL (10.7-15.3); LYMPH % 6.7 % (8-40); MCH 29.9 pg (25.7-33.7); MCHC 32.7 g/dl (32.0-36.0); MEAN CELL VOLUME 91.3 fl (80-96); MEAN PLT VOLUME 6.9 fl (7.5-11.1); MONO % 13.7 % (3.8-10.2); NEUT % 78.2 % (42.8-82.8); PLATELET COUNT 178 10^3/uL (134-434); RBC 3.65 M/mm3 (3.60-5.2); RDW 14.3 % (11.6-15.6); WHITE BLOOD COUNT 5.8 K/mm3 (4.0-10.0)
[2024-08-05] MEDS ORDERED: predniSONE 20 MG TABLET (UD) ONE (20:28)
[2024-08-05 20:38] LABS: POTASSIUM 4.5 mmol/L (3.5-5.1)
[2024-08-05 20:39] LABS: CALCIUM 8.1 mg/dL (8.5-10.1)
[2024-08-05 20:41] LABS: ALBUMIN 3.4 g/dl (3.4-5.0); BLOOD UREA NITROGEN 19.7 mg/dL (7-18)
[2024-08-05 20:43] LABS: CREATININE 1.2 mg/dL (0.55-1.3)
[2024-08-05 20:44] LABS: BILIRUBIN,TOTAL 0.4 mg/dL (0.2-1)
[2024-08-05 20:45] LABS: TOT PROT 5.9 g/dl (6.4-8.2)
[2024-08-05] MEDS: SODIUM CHLORIDE 0.9% 500 ML INFUS.BAG IV ONE (20:49)
[2024-08-05] MEDS: predniSONE 20 MG TABLET (UD) PO ONE (20:50)
[2024-08-05 21:39] LABS: VENOUS BASE EXCESS 2.6 mmol/L (-2-2); VENOUS PCO2 54.2 mmHg (38-52); VENOUS PH 7.354 (7.310-7.410)
[2024-08-05 21:40] LABS: HIV INTERPRETATION NEGATIVE (NEGATIVE)
[2024-08-05] MEDS ORDERED: DOCUSATE SODIUM 100 MG CAPSULE (FP) PO PRN (22:27)
[2024-08-05] MEDS ORDERED: ACETAMINOPHEN 325 MG TABLET (FP) PO PRN (22:27)
[2024-08-06 01:34] VITALS: BMI 22.3
[2024-08-06] MEDS ORDERED: ALBUTEROL SO4 HFA INHALER IH PRN (03:26)
[2024-08-06] MEDS ORDERED: SENNOSIDES/DOCUSATE COMBO (SENNA PLUS) TABLET (UD) PO PRN (03:26)
[2024-08-06] MEDS: QUEtiapine FUMARATE 25 MG TABLET PO SCH (05:09)
[2024-08-06] MEDS: LEVOTHYROXINE NA 25 MCG TABLET (FP) PO SCH (06:05)
[2024-08-06] MEDS: GABAPENTIN 300 MG CAPSULE PO SCH (06:05)
[2024-08-06] MEDS: clonazePAM 0.5 MG TABLET PO SCH (06:05)
[2024-08-06] MEDS: ALBUTEROL SO4 2.5/IPRATROPIUM 0.5 INH SOL 3 ML VIAL.NEB. NEB SCH (08:00)
[2024-08-06 08:59] LABS: HEMOGLOBIN 10.3 GM/dL (10.7-15.3); MCH 30.3 pg (25.7-33.7); MCHC 33.4 g/dl (32.0-36.0); MEAN CELL VOLUME 90.7 fl (80-96); MEAN PLT VOLUME 7.1 fl (7.5-11.1); PLATELET COUNT 157 10^3/uL (134-434); RBC 3.42 M/mm3 (3.60-5.2); RDW 14.4 % (11.6-15.6); WHITE BLOOD COUNT 2.4 K/mm3 (4.0-10.0)
[2024-08-06 09:18] LABS: POTASSIUM 4.4 mmol/L (3.5-5.1)
[2024-08-06 09:22] LABS: BLOOD UREA NITROGEN 20.7 mg/dL (7-18); CALCIUM 7.8 mg/dL (8.5-10.1)
[2024-08-06] MEDS ORDERED: predniSONE 20 MG TABLET (UD) PO SCH (10:00)
[2024-08-06 10:12] LABS: BASO % 0.3 % (0-2.0); LYMPH % 13.4 % (8-40); MONO % 4.9 % (3.8-10.2); NEUT % 81.4 % (42.8-82.8)
[2024-08-06] MEDS: predniSONE 20 MG TABLET (UD) PO SCH (11:01)
[2024-08-06] MEDS: FERROUS SO4 325 MG TABLET (FP) PO SCH (11:01)
[2024-08-06] MEDS: FAMOTIDINE 20 MG TABLET PO SCH (11:01)
[2024-08-06] MEDS: CITALOPRAM HYDROBROMIDE 20 MG TABLET PO SCH (11:01)
[2024-08-06] MEDS: guaiFENesin 600 MG TABLET.ER (FP) PO SCH (11:01)
[2024-08-06] MEDS: FLUTICASONE/UMECLIDIN/VILANTER(200-62.5-25 TRELEGY ELLIPTA) INAHLER IH SCH (11:02)
[2024-08-06] MEDS: metoPROLOL SUCCINATE 25 MG TAB.SR.24H (FP) PO SCH (11:02)
[2024-08-06] MEDS: REMDESIVIR 200 MG in SODIUM CHLORIDE 250 ML IVPB ONE (11:03)
[2024-08-06] MEDS: ANASTROZOLE 1 MG TABLET PO SCH (11:45)
[2024-08-06] MEDS: HEPARIN NA (PORCINE) 5,000 UNITS/ML 1ML VIAL SQ SCH (13:18)
[2024-08-06] MEDS: BENZONATATE 200 MG CAPSULE PO PRN (13:23)
[2024-08-06] MEDS: ATORVASTATIN CA 40 MG TABLET (FP) PO SCH (22:23)
[2024-08-07 09:46] LABS: BASO % 0.3 % (0-2.0); EOS % 0.1 % (0-4.5); HEMATOCRIT 32.4 % (32.4-45.2); HEMOGLOBIN 10.7 GM/dL (10.7-15.3); LYMPH % 21.7 % (8-40); MCH 30.2 pg (25.7-33.7); MCHC 33.1 g/dl (32.0-36.0); MEAN CELL VOLUME 91.1 fl (80-96); MEAN PLT VOLUME 7.1 fl (7.5-11.1); MONO % 14.4 % (3.8-10.2); NEUT % 63.5 % (42.8-82.8); PLATELET COUNT 196 10^3/uL (134-434); RBC 3.56 M/mm3 (3.60-5.2); RDW 14.2 % (11.6-15.6); WHITE BLOOD COUNT 3.7 K/mm3 (4.0-10.0)
[2024-08-07 10:25] LABS: POTASSIUM 4.2 mmol/L (3.5-5.1)
[2024-08-07 10:30] LABS: ALBUMIN 3.1 g/dl (3.4-5.0); BLOOD UREA NITROGEN 27.1 mg/dL (7-18); MAGNESIUM 2.3 mg/dL (1.8-2.4)
[2024-08-07 10:33] LABS: CREATININE 0.9 mg/dL (0.55-1.3)
[2024-08-07 10:35] LABS: BILIRUBIN,TOTAL 0.2 mg/dL (0.2-1); TOT PROT 5.5 g/dl (6.4-8.2)
[2024-08-07] MEDS: REMDESIVIR 100 MG in SODIUM CHLORIDE 250 ML IVPB SCH (10:46)
[2024-08-07] MEDS: PANTOPRAZOLE 40 MG TABLET PO SCH (14:37)
[2024-08-07 15:55] VITALS: RESP 18
[2024-08-08 09:13] LABS: BASO % 0.3 % (0-2.0); EOS % 0.1 % (0-4.5); HEMOGLOBIN 11.6 GM/dL (10.7-15.3); LYMPH % 24.2 % (8-40); MCH 30.1 pg (25.7-33.7); MEAN CELL VOLUME 91.3 fl (80-96); MEAN PLT VOLUME 7.6 fl (7.5-11.1); MONO % 12.9 % (3.8-10.2); NEUT % 62.5 % (42.8-82.8); PLATELET COUNT 176 10^3/uL (134-434); RBC 3.84 M/mm3 (3.60-5.2); RDW 14.7 % (11.6-15.6); WHITE BLOOD COUNT 3.3 K/mm3 (4.0-10.0)
[2024-08-08 09:57] LABS: ALBUMIN 3.1 g/dl (3.4-5.0); BLOOD UREA NITROGEN 26.9 mg/dL (7-18); CALCIUM 8.3 mg/dL (8.5-10.1); MAGNESIUM 2.4 mg/dL (1.8-2.4)
[2024-08-08 10:00] LABS: CREATININE 0.8 mg/dL (0.55-1.3)
[2024-08-08 10:01] LABS: BILIRUBIN,TOTAL 0.4 mg/dL (0.2-1)
[2024-08-08 10:02] LABS: TOT PROT 5.6 g/dl (6.4-8.2)
[2024-08-09 14:45] VITALS: BP 112/62; PULSE 90; TEMP 98.4
== END 2024-08-09 16:47 | disposition home or self-care (01) | DRG 178 ==
LOC: JER 18:58 → JERBED 22:11 → J8W 08-06 00:24 → OBSVTOIN 08-06 14:00
PROVIDERS: ADMIT Internal Medicine; ATTEND Internal Medicine
PROC: XW033E5 Introduction of Remdesivir Anti-infective into Peripheral Vein, Percutaneous Approach, New Technology Group 5 (ICD-10-PCS; principal; 2024-08-06)
DX: U07.1 COVID-19 (principal); I31.39 Other pericardial effusion (noninflammatory); J44.1 Chronic obstructive pulmonary disease with (acute) exacerbation; J96.11 Chronic respiratory failure with hypoxia; I10 Essential (primary) hypertension; I25.10 Atherosclerotic heart disease of native coronary artery without angina pectoris; E03.9 Hypothyroidism, unspecified; K21.9 Gastro-esophageal reflux disease without esophagitis; M81.0 Age-related osteoporosis without current pathological fracture; E55.9 Vitamin D deficiency, unspecified; D64.9 Anemia, unspecified; E78.5 Hyperlipidemia, unspecified
CPT/HCPCS: 0241U-QW; 36415; 71045-TC-FY; 71250-TC; 80048; 80053; 82803; 83036; 83735; 84443; 84484; 85025; 86803; 87389; 93005; 93010; 93306-TC; 94640; 94660; 97116-GP; 97161-GP; 99285-25; G0378; J0248; J1644